=== PATIENT | female | born 1995 | race Caucasian/White ===

== ENCOUNTER 2016-03-29 17:19 | Inpatient (IN) | payer MEDICAID, OTHER ==
[~2016-03-29] VITALS: Ht 152.4 cm; Wt 104.2 kg
[2016-03-29 19:54] LABS: MEAN CORPUSCULAR HEMOGLOBIN 30.9 pg (27.0-33.0); MEAN CORPUSCULAR HGB CONC 34.3 g/dl (32.0-36.5); MEAN CORPUSCULAR VOLUME 90.1 fl (80.0-96.0); RED CELL DISTRIBUTION WIDTH 12.1 % (11.5-14.5); WHITE BLOOD COUNT 7.8 K/mm3 (4.0-10.0)
[2016-03-29 19:56] LABS: CONTROL LINE HCG INT CTR LINE PRESENT
[2016-03-29 19:59] LABS: AMPHETAMINES LEVEL URINE NEGATIVE (NEGATIVE); BENZODIAZEPINES URINE NEGATIVE (NEGATIVE); COCAINE METABOLITE URINE NEGATIVE (NEGATIVE); CONTROL LINE INT CTR LINE PRESENT; METHADONE URINE NEGATIVE (NEGATIVE); OPIATES URINE NEGATIVE (NEGATIVE); TRICYCLIC ANTIDEPRESS URINE NEGATIVE (NEGATIVE)
[2016-03-29 20:19] LABS: ALBUMIN/GLOBULIN RATIO 1.14 (1.00-1.93); ALKALINE PHOSPHATASE 90 U/L (45-117); ALT/SGPT 23 U/L (12-78); ANION GAP 11 MEQ/L (8-16); AST/SGOT 13 U/L (15-37); BILIRUBIN,DIRECT < 0.1 MG/DL (0.0-0.2); BILIRUBIN,TOTAL 0.3 MG/DL (0.2-1.0); BLOOD UREA NITROGEN 13 MG/DL (7-18); CARBON DIOXIDE LEVEL 20 MEQ/L (21-32); CHLORIDE LEVEL 110 MEQ/L (98-107); CREATININE FOR GFR 0.95 MG/DL (0.55-1.02); GLUCOSE, FASTING 120 MG/DL (70-105); POTASSIUM SERUM 4.1 MEQ/L (3.5-5.1); SODIUM LEVEL 141 MEQ/L (136-145); TOTAL PROTEIN 7.5 GM/DL (6.4-8.2)
[2016-03-29] MEDS ORDERED: SYNT75TA PO (20:50)
[2016-03-29] MEDS ORDERED: LAMI1TAB7 PO (20:50)
[2016-03-29] MEDS ORDERED: METF500T4 PO (20:50)
[2016-03-29] MEDS ORDERED: VITMTA PO (20:50)
[2016-03-29] MEDS ORDERED: CLON-412 PO (20:50)
[2016-03-29] MEDS ORDERED: ZOLO25TA PO (20:50)
[2016-03-29] MEDS ORDERED: LITH45TASA PO (20:50)
[2016-03-29] MEDS ORDERED: JUNE1.5T PO (20:50)
[2016-03-29] MEDS ORDERED: LITH150C PO (20:50)
[2016-03-29] MEDS ORDERED: CLOZ25TA2 PO (20:50)
[2016-03-29] MEDS ORDERED: CLOZ100T PO ×2 (20:50)
[2016-03-29] MEDS ORDERED: metFORMIN XR 500MG TAB *GLUCOPHAGE XR PO SCH (21:00)
--- NOTE | 2016-03-29 22:36 | EDDOCDS ---
Nurse's Notes [facility] Name: Marisol Simmons Age: 20 yrs Sex: Female : 1995 Arrival Date: 03/29/2016 Time: 17:19 Bed 31 Private MD: Diagnosis: Adjustment disorder with depressed mood;Suicidal ideations;Hallucinations, unspecified Presentation: 03/29 18:01 Presenting complaint: Patient states: I was threatening to kill myself and hearing [facility] voices, denies plan. Mental Health Triage Level: Level 2: The patient displays active suicidal ideations. Adult Sepsis Screening: The patient does not have new or worsening altered mentation. Patient's respiratory rate is less than 22. Systolic blood pressure is greater than 100. Patient has a qSOFA score of 0- Negative Sepsis Screen. Suicide/Homicide risk assessment- The patient admits to and/or has been reported to be having suicidal ideations. Patient denies SI and HI but presents with another emotional, behavioral or other mental health complaint. Status: Patient is not a service consultant or dependent. Transition of care: patient was sent by TLS. 18:01 Acuity: FABIANA Level 3 [facility] 18:01 Method Of Arrival: Police Car [facility] Triage Assessment: 18:11 General: Appears in no apparent distress, comfortable, Behavior is appropriate for age, [facility] cooperative. Pain: Denies pain. HIV screening NA for this visit Offered previously. The patient is triaged at the bedside. See Assessment in Nurses Notes section of ED record. Neurological: Level of Consciousness is awake, alert, Oriented to person, place, time. Respiratory: Airway is patent Respiratory effort is even, unlabored, Respiratory pattern is regular, symmetrical. Derm: Skin is pink, warm & dry. Musculoskeletal: Range of motion intact in all extremities. MEDICAL DOCTOR NUCLEAR MEDICINE: 18:11 LMP 03/23/2016 [facility] Historical: - Allergies: No known drug Allergies; LactoseI Intolerance; - Home Meds: 1. clonidine HCl 0.1 mg oral tab 3 times per day 2. Clozaril 100 mg oral tab 2 tabs nightly 3. Clozaril 100 mg oral tab 1 tab daily 4. Clozaril oral 50mg tab oral 1 tab nightly 5. lithium carbonate 450 mg oral TbER 1 tab 2 times per day 6. Synthroid 75 mcg Oral tab 1 tab once daily 7. multivitamin Oral cap Unknown 8. Lamictal 100 mg oral tab twice a day 9. Clozaril 100 mg oral tab 1 tab daily at noon 10. Zoloft 25 mg Oral tab 1.5 tabs once daily 11. Glucophage XR 500 mg Oral Tb24 2 tabs nightly 12. .5/ (28) 1.5 mg-30 mcg (21)/75 mg (7) oral tab 1 tab once daily - PMHx: Hypothyroidism; Schizophrenia; - PSHx: none; - Social history: Smoking status: Patient states was never smoker of tobacco. No barriers to communication noted. - Family history: Not pertinent. - : The pt / caregiver states he / she is not on anticoagulants. Home medication list is obtained from the facility MAY. - Exposure Risk Screening:: None identified. Screenin:51 Screening information is obtained from the patient. Fall risk: No risks identified. [facility] Assistance ADL's: requires no assistance with activities of daily living. Abuse/DV Screen: The patient / caregiver reports he/she is: not in a situation that causes fear, pain or injury. Nutritional screening: No deficits noted. Advance Directives: There is no active DNR order. home support is adequate. Assessment: 18:51 General: see bedside triage assessment. Patient is cooperative with care, ambulates to [facility] bathroom without assist or difficulty, gait steady. 19:30 General: Appears in no apparent distress, comfortable, Behavior is appropriate for age, slm cooperative, pleasant. General: pt sitting on stretcher watching tv [facility] staff observing . Pain: Denies pain. Neurological: Level of Consciousness is awake, alert, obeys commands. Respiratory: Airway is patent Respiratory effort is even, unlabored. Derm: Skin is pink, warm & dry. 20:22 General: Appears in no apparent distress, comfortable, Behavior is appropriate for age, slm cooperative, pleasant. General: pt resting quietly on stretcher [facility] staff observing . Respiratory: Airway is patent Respiratory effort is even, unlabored. 21:02 General: Appears in no apparent distress, comfortable, Behavior is appropriate for age, slm cooperative, pleasant. General: pt resting on stretcher denies needs [facility] staff observing . Pain: Denies pain. Respiratory: Airway is patent Respiratory effort is even, unlabored. 21:52 General: Appears in no apparent distress, comfortable, Behavior is appropriate for age, slm cooperative, pleasant. General: pt resting on stretcher quietly security observing . Respiratory: Airway is patent Respiratory pattern is regular. 22:27 General: Appears in no apparent distress, comfortable, Behavior is appropriate for age, slm cooperative. General: pt resting quietly on stretcher awaiting admission [facility] staff observing . Pain: Denies pain. Neurological: Level of Consciousness is awake, alert, obeys commands. Respiratory: Airway is patent Respiratory effort is even, unlabored. Derm: Skin is pink, warm & dry. Mental Health Eval: 19:23 Status: The patient is not a service consultant or dependent. [facility] Behavioral Health: The patient is not an established patient of [facility] Behavioral Health. Referral Information: Evaluation referral is generated by a police agency: [employer] on .. The patient was referred for evaluation because Pt expressing SI while at [facility] today, has hx of Schizophrenia, prior attempts at self harm and multiple psych admissions in past.. Subjective: The patients chief complaint is Pt reports feeling suicidal "today", denies any specific stressors, is guarded, gives short, rosetta answers, reports AH with commands recently, "[place]", telling pt to "cut" herself. Pt vague HI as well though denies any specific target/plan. Pt denies sleep/appetite/energy/concentration issues, denies any substance abuse issues, has been residing at [facility] since last Summer, states "its OK there". Pt with several prior psych admissions to [facility] in past, most recently transferred to [facility] from [facility] ED 12/20 for similar presentation/complaints. Pt continues to voice SI without plan, cannot CFS, remains fairly guarded.. Delusions are denied. Patient's mood is dysthymic, Command hallucinations are reported by the patient. Mental Health history: depression, psychosis, self -mutilation, suicide ideation ideation Mental Health Admissions: Several to [facility]. in past, also [facility] 12/20. Current Outpatient Mental Health Services: Psychiatrist / Agency: DEBBIE Mcleod. Therapist / Agency: DEBBIE Ruiz?. Current living environment is The patient currently lives in a [facility] residence. The patient is single. Patient presents to Emergency Department with the following symptoms within the past 2 weeks: depressed mood, auditory hallucinations stated by patient suicidal ideation with no plan. Substance abuse: Pt denies. Mental status exam: Patients appearance is obese, Patient's behavior is minimally responsive Speech is normal. Affect is flat. Mood is dysthymic Command hallucinations are reported by the patient. Appetite is normal. Memory is fair. Energy level is normal. Content of thought is depressive. depressive Thought process is intact. Cognitive level is oriented to person, place, time and situation Patient's insight is fair. Judgement is fair. Rapport with interviewer is guarded. Suicidal Ideation is present with no specific plan. Homicidal ideation is present without a specific plan. 20:19 Disposition: Medically cleared for disposition by Linnea De Santiago BUTTERMAKER Psychiatric Consult cl is performed by phone with Dr Justine Sears. [facility] Admission Criteria: The patient is experiencing suicidal ideation. The patient displays symptoms of severe psychiatric disorder resulting in disordered behavior and significant interference with his / her ability to maintain self care. Hallucinations. The patient requires continuous observation and/or control to protect self, others or property. The patient's care requires a multi-modal treatment plan under close supervision and coordination due to the complexity and severity of the patient's symptoms. Legal Status: Patient's legal status will be Emergency admission: 39. [place] Safe [place]: [place] Safe Act is applicable to this patient. The patient poses a risk to self or other and the Nursing Evaluation Specialist has been notified. He/She will enter the patient's data. DSM-V Differential Diagnosis: Schizophrenia (F20.9). DSM-V Differential Diagnosis: Unspecified Psychotic Disorder (F29). 20:53 Insurance Pre-Certification: [facility]...[phone]....per care asst, only cl substance abuse covered by [facility], benefits are [facility] Medicaid carve-out..... Family Notification: Family notified of admission to [facility], Notification was given to [facility] staff aware of admission.... Awaiting: transfer to [facility]. Vital Signs: 17:49 BP 156 / 81; Pulse 107; Resp 16; Temp 98.5; Pulse Ox 99% ; [facility] 22:30 BP 169 / 96; Pulse 105; Resp 18; Temp 98.2; Pulse Ox 99% on R/A; Pain 0/10; slm Vitals: 17:49 Log In time N/A- police car arrival. [facility] ED Course: 17:19 Patient visited by Cynthia Guan. zo 17:19 Patient moved to Waiting zo 17:20 Patient moved to 31 zo 17:34 Patient name changed from Marisol\\S\\Crystal\\S\\Troy\\S\\ to Marisol\\S\\R\\S\\Troy. EDMS 17:52 Patient visited by Jocelyne Mejía PSA. ml4 18:02 Triage Initiated [facility] 18:09 Property removed, secured in belongings bag- Placed in locker #3. pjf 18:44 Linnea De Santiago FNP is PHCP. le 18:45 Patient visited by Linnea De Santiago FNP. le 18:45 Patient visited by Linnea De Santiago FNP. le 18:51 The patient / caregiver is instructed regarding the plan of care and ED course. Patient [facility] has correct armband on for positive identification. Placed in gown. Placed in psych safe attire. Call light in reach. Security observing. 18:53 Patient visited by Kacey Cornelius RN. [facility] 19:30 Lori Zhou LPN is Primary Nurse. sl 19:31 Patient visited by Lori Zhou LPN. slm 19:31 No IV's were initiated during this patient's visit. No procedures done that require slm assistance. Labs drawn. (by ED staff). Sent per order to lab. Urine collected. Urine specimen sent to lab. 19:31 Acetaminophen Level Sent. slm 19:31 Basic Metabolic Profile Sent. slm 19:31 Complete Blood Count Sent. slm 19:31 Drug Eval Toxicology ED Only Sent. slm 19:31 Ethyl Alcohol (ethanol) Sent. slm 19:31 HCG,Serum Qualitative Sent. slm 19:32 Liver Profile Sent. slm 19:32 Salicylate Level Sent. slm 19:32 Thyroid Stimulating Hormone Sent. slm 20:20 [place] Payment Agreement was scanned into [facility] and attached to record. zo 20:22 Justine Sears is Hospitalizing Provider. le 20:46 MHE Legal paperwork was scanned into [facility] and attached to record. ml4 21:03 Patient visited by Lori Zhou LPN. slm 21:53 Patient visited by Lori Zhou LPN. slm 22:28 Patient visited by Loir Zhou LPN. slm Attachments: 20:46 MHE Legal paperwork ml4 Order Results: Lab Order: Acetaminophen Level; SPEC'M 03/29/16 19:26 Test: ACETAMINOPHEN LEVEL; Value: < 2.0; Range: 10.0-30.0; Abnormal: Below low normal; Units: UG/ML; Status: F Lab Order: Basic Metabolic Profile; SPEC'M 03/29/16 19:26 Test: GLUCOSE, FASTING; Value: 120; Range: 70-105; Abnormal: Above high normal; Units: MG/DL; Status: F Test: BLOOD UREA NITROGEN; Value: 13; Range: 7-18; Units: MG/DL; Status: F Test: CREATININE FOR GFR; Value: 0.95; Range: 0.55-1.02; Units: MG/DL; Status: F Test: SODIUM LEVEL; Value: 141; Range: 136-145; Units: MEQ/L; Status: F Test: POTASSIUM SERUM; Value: 4.1; Range: 3.5-5.1; Units: MEQ/L; Status: F Test: CHLORIDE LEVEL; Value: 110; Range: 98-107; Abnormal: Above high normal; Units: MEQ/L; Status: F Test: CARBON DIOXIDE LEVEL; Value: 20; Range: 21-32; Abnormal: Below low normal; Units: MEQ/L; Status: F Test: ANION GAP; Value: 11; Range: 8-16; Units: MEQ/L; Status: F Test: CALCIUM LEVEL; Value: 9.0; Range: 8.5-10.1; Units: MG/DL; Status: F Lab Order: Complete Blood Count; SPEC'M 03/29/16 19:26 Test: WHITE BLOOD COUNT; Value: 7.8; Range: 4.0-10.0; Units: K/mm3; Status: F Test: RED BLOOD COUNT; Value: 4.11; Range: 4.00-5.40; Units: M/mm3; Status: F Test: HEMOGLOBIN; Value: 12.7; Range: 12.0-16.0; Units: g/dl; Status: F Test: HEMATOCRIT; Value: 37.0; Range: 36.0-47.0; Units: %; Status: F Test: MEAN CORPUSCULAR VOLUME; Value: 90.1; Range: 80.0-96.0; Units: fl; Status: F Test: MEAN CORPUSCULAR HEMOGLOBIN; Value: 30.9; Range: 27.0-33.0; Units: pg; Status: F Test: MEAN CORPUSCULAR HGB CONC; Value: 34.3; Range: 32.0-36.5; Units: g/dl; Status: F Test: RED CELL DISTRIBUTION WIDTH; Value: 12.1; Range: 11.5-14.5; Units: %; Status: F Test: PLATELET COUNT, AUTOMATED; Value: 274; Range: 150-450; Units: k/mm3; Status: F Lab Order: Drug Eval Toxicology ED Only; SPEC'M 03/29/16 19:18 Test: AMPHETAMINES LEVEL URINE; Value: NEGATIVE; Range: NEGATIVE; Status: F Test: BARBITURATES URINE; Value: NEGATIVE; Range: NEGATIVE; Status: F Test: BENZODIAZEPINES URINE; Value: NEGATIVE; Range: NEGATIVE; Status: F Test: CANNABINOIDS URINE; Value: NEGATIVE; Range: NEGATIVE; Status: F Test: COCAINE METABOLITE URINE; Value: NEGATIVE; Range: NEGATIVE; Status: F Test: METHADONE URINE; Value: NEGATIVE; Range: NEGATIVE; Status: F Test: OPIATES URINE; Value: NEGATIVE; Range: NEGATIVE; Status: F Test: TRICYCLIC ANTIDEPRESS URINE; Value: NEGATIVE; Range: NEGATIVE; Status: F Test Note: ; ALL PRESUMPTIVE POSITIVE FINDINGS ARE UNCONFIRMED NORMAL VALUES THRESHOLD IN NG/ML AMPHETAMINES 1000 METHAMPHETAMINES 1000 BARBITURATES 300 BENZODIAZEPINES 300 CANNABINOIDS (THC) 50 COCAINE METABOLITE 300 METHADONE 300 OPIATES 300 PHENCYCLIDINE 25 TRICYCLIC ANTIDEPRESSANTS 1000 RESULTS ARE FOR MEDICAL PURPOSES ONLY. ALL URINE SPECIMENS WILL BE SAVED FOR 3 DAYS. IF CONFIRMATION OF A PRESUMPTIVE POSTIVE SCREEN RESULT IS DESIRED, CALL CHEMISTRY ([phone]) AND REQUEST URINE TO BE SENT TO REFERENCE LAB. FOR A LIST OF CLOSELY RELATED COMPOUNDS PLEASE CALL THE LAB. Lab Order: Ethyl Alcohol (ethanol); SPEC'M 03/29/16 19:26 Test: ETHYL ALCOHOL (ETHANOL); Value: 0.003; Range: 0.000-0.010; Units: %; Status: F Lab Order: HCG,Serum Qualitative; SPEC'M 03/29/16 19:26 Test: HCG, SERUM QUALITATIVE; Value: NEGATIVE; Range: NEGATIVE; Status: F Lab Order: Liver Profile; SPEC'M 03/29/16 19: Test: AST/SGOT; Value: 13; Range: 15-37; Abnormal: Below low normal; Units: U/L; Status: F Test: ALT/SGPT; Value: 23; Range: 12-78; Units: U/L; Status: F Test: ALKALINE PHOSPHATASE; Value: 90; Range: 45-117; Units: U/L; Status: F Test: BILIRUBIN,TOTAL; Value: 0.3; Range: 0.2-1.0; Units: MG/DL; Status: F Test: BILIRUBIN,DIRECT; Value: < 0.1; Range: 0.0-0.2; Units: MG/DL; Status: F Test: TOTAL PROTEIN; Value: 7.5; Range: 6.4-8.2; Units: GM/DL; Status: F Test: ALBUMIN; Value: 4.0; Range: 3.2-5.2; Units: GM/DL; Status: F Test: ALBUMIN/GLOBULIN RATIO; Value: 1.14; Range: 1.00-1.93; Status: F Lab Order: Salicylate Level; SPEC'M 03/29/16 19: Test: SALICYLATE LEVEL; Value: < 1.7; Range: 5.0-30.0; Abnormal: Below low normal; Units: MG/DL; Status: F Lab Order: Thyroid Stimulating Hormone; SPEC'03/29/16 19: Test: THYROID STIMULATING HORMONE; Value: 1.070; Range: 0.463-3.98; Units: uIU/ML; Status: F Outcome: 20:22 Decision to Hospitalize by Provider. le 21:03 No special radiology studies were completed. [facility] 22:30 Discharge Assessment: Patient awake, alert and oriented x 3. No cognitive and/or slm functional deficits noted. Patient verbalized understanding of disposition instructions. patient administered narcotics - no. The following High Risk Discharge criteria are identified: None. Admitted to Psych accompanied by tech, via wheelchair, with chart. Condition: stable. 22:34 Patient left the ED. [facility] Signatures: Dispatcher [employer] EDMS Sandeep Alvarado, PSA PSA cl Gian Reese, Jocelyne Rhodes, PSA PSA ml4 Cynthia Guan Lisa, BUTTERMAKER Kacey Delarosa,MARCOS RN cj Lori Zhou,FRY COOK FRY COOK slm MTDD
--- NOTE | 2016-03-29 22:36 | EDDOCDS ---
Physician Documentation [facility] Name: Marisol Simmons Age: 20 yrs Sex: Female : 1995 Arrival Date: 03/29/2016 Time: 17:19 Bed 31 Private MD: Disposition: 03/29/16 20:22 Hospitalization ordered by Justine Sears for Inpatient Admission. Preliminary diagnosis are Adjustment disorder with depressed mood, Suicidal ideations, Hallucinations, unspecified. - Bed requested for Admit. - Status is Inpatient Admission. slm - Condition is Stable. - Problem is an acute exacerbation. - Symptoms are unchanged. Historical: - Allergies: No known drug Allergies; LactoseI Intolerance; - Home Meds: 1. clonidine HCl 0.1 mg oral tab 3 times per day 2. Clozaril 100 mg oral tab 2 tabs nightly 3. Clozaril 100 mg oral tab 1 tab daily 4. Clozaril oral 50mg tab oral 1 tab nightly 5. lithium carbonate 450 mg oral TbER 1 tab 2 times per day 6. Synthroid 75 mcg Oral tab 1 tab once daily 7. multivitamin Oral cap Unknown 8. Lamictal 100 mg oral tab twice a day 9. Clozaril 100 mg oral tab 1 tab daily at noon 10. Zoloft 25 mg Oral tab 1.5 tabs once daily 11. Glucophage XR 500 mg Oral Tb24 2 tabs nightly 12. 1.5/30 (28) 1.5 mg-30 mcg (21)/75 mg (7) oral tab 1 tab once daily - PMHx: Hypothyroidism; Schizophrenia; - PSHx: none; - Social history: Smoking status: Patient states was never smoker of tobacco. No barriers to communication noted. - Family history: Not pertinent. - : The pt / caregiver states he / she is not on anticoagulants. Home medication list is obtained from the facility MAY. - Exposure Risk Screening:: None identified. EROSION CONTROL SPECIALIST: 03/29 18:11 LMP 03/23/2016 [facility] Vital Signs: 17:49 BP 156 / 81; Pulse 107; Resp 16; Temp 98.5; Pulse Ox 99% ; [facility] 22:30 BP 169 / 96; Pulse 105; Resp 18; Temp 98.2; Pulse Ox 99% on R/A; Pain 0/10; slm MDM: 17:21 Consult PFS/PSA/Laundry Routeman ordered. ml 17:21 Consult PFS/PSA/Laundry Routeman: Patient's case requires discussion with on-call ml Psychiatrist ordered. 17:21 PSA/PFS to call Nursing Program Services Assistant, to enter patient data on [place] Safe Act if patient ml involuntarily admitted or transferred for SI or HI ordered. 17:21 Confirm accurate psychiatric medication list and times of last dosage ordered. ml 17:21 Detain Pt Until Medically/PFS Cleared ordered. ml 17:22 Acetaminophen Level Ordered. EDMS 17:22 Basic Metabolic Profile Ordered. EDMS 17:22 Complete Blood Count Ordered. EDMS 17:22 Drug Eval Toxicology ED Only Ordered. EDMS 17:22 Ethyl Alcohol (ethanol) Ordered. EDMS 17:22 HCG,Serum Qualitative Ordered. EDMS 17:22 Liver Profile Ordered. EDMS 17:22 Salicylate Level Ordered. EDMS 17:22 Thyroid Stimulating Hormone Ordered. EDMS 17:55 REGULAR DIET PLASTIC BHATT+DIET ordered. EDMS 19:58 Financial registration complete. zo 19:59 Consult PFS/PSA/Laundry Routeman complete. cl 19:59 Consult PFS/PSA/Laundry Routeman: Patient's case requires discussion with on-call cl Psychiatrist complete. 19:59 PSA/PFS to call Nursing Program Services Assistant, to enter patient data on [place] Safe Act if patient cl involuntarily admitted or transferred for SI or HI complete. 20:14 Complete Blood Count Reviewed. le 20:14 Drug Eval Toxicology ED Only Reviewed. le 20:14 HCG,Serum Qualitative Reviewed. le 20:20 [facility] Payment Agreement was scanned into [employer] and attached to record. zo 20:23 BED REQUEST+ADM ordered. EDMS 20:43 Ad[facility]: ordered. EDMS 20:46 [facility] Legal paperwork was scanned into [employer] and attached to record. ml4 Signatures: Dispatcher [employer] EDDE Kit Bland MD MD ml Lavin, Chris, PSA PSA cl Jocelyne Mejía, PSA PSA ml4 Cynthia Guan Lisa, WOOD CRAFTSMAN WOOD CRAFTSMAN Kacey Powell,MARCOS RN marilee Lori Zhou LPN LPN slm The chart was reviewed and I authenticate all verbal orders and agree with the evaluation and treatment provided.Attachments: 20:20 [facility] Payment Agreement zo MTDD
[2016-03-29 22:45] VITALS: BP 140/90
[2016-03-30] MEDS ORDERED: MAALOX 30 ML SUSP *UDC PO PRN (00:45)
[2016-03-30] MEDS ORDERED: traZODone 50 MG TAB PO PRN (00:45)
[2016-03-30] MEDS ORDERED: MOM 30ML SUSPENSION UDC PO PRN (00:45)
[2016-03-30 06:25] VITALS: BP 151/81
[2016-03-30] MEDS: LEVOTHYROXINE 0.075 MG TAB (75 MCG) PO SCH (06:39)
[2016-03-30] MEDS: cloNIDine 0.1 MG TAB PO SCH ×3 (08:16→20:28)
[2016-03-30] MEDS: cloZAPine 100 MG TAB (S0136) PO SCH ×3 (08:16→20:29)
[2016-03-30] MEDS: SERTRALINE HCL 25 MG TABLET PO SCH (08:16)
[2016-03-30] MEDS: LITHIUM CARBONATE 450 MG **CR** TAB PO SCH ×2 (08:17→20:28)
[2016-03-30] MEDS: lamoTRIgine 100MG TAB PO SCH ×2 (08:17→20:29)
--- NOTE | 2016-03-30 11:51 | HPEPDOC ---
Medical History and Physical Date of Admission Mar 29, 2016 at 22:40 History and Physical PCP: [facility] ATTENDING: Dr. Morris Marley HPI: 20yoF [facility], being medically examined today. No acute medical complaints today. Denies any fevers, chills, weakness, fatigue , CLEMENS, CP, SOB, cough, palpitations, abdominal pain, N/V/D or changes in bowel or bladder habits. PMHx: Hypothyroid Schizophrenia Obesity-BMI 44.9 IFG PSHX: [place] teeth extraction SOCHX: Resides in: [place] Marital Status: Single Kids: None Employment: Unemployed Tobacco use: Denies ETOH: Denies Illicit Drugs: Denies IV Drug Use: Denies Tattoos done unprofessionally: Denies FAMHX: Mother: Alive, well Father: Alive, well Siblings: 2 sisters Alive, well Children: None Unexpected deaths due to medical reasons: None. ROS: As noted in HPI, otherwise 11pt ROS of systems reviewed and remarkable only for LMP 03/23/16 PE: GEN: 20yoF, appears stated age. Well-nourished, well developed. No acute distress. Alert and oriented x 3. Pleasant, interactive. HEENT: Normocephalic, atraumatic. Pupils are equal, round, and reactive to light. Extraocular movements are intact. No nystagmus appreciated. Sclera are nonicteric. Conjunctiva without injection. Nose midline. Nasal turbinates without bogginess. EACs both patent BL. TMs both visualized and kwon with good cone of light, no bulging or erythema. No facial asymmetry. Moist mucous membranes. Dentition fair. Pharynx pink and moist, no cobblestoning. Neck supple , trachea midline. No lymphadenopathy or thyromegaly appreciated. CHEST: Regular rate and rhythm, +S1, +S2 LUNGS: Clear to auscultation bilaterally. No wheezes, rales, or rhonchi. Breathing appears symmetric and easy. Patient is speaking in full sentences. No accessory muscle use. ABD: Round, soft, non-tender, non-distended. +Bowel sounds throughout. No rebound or guarding. No costovertebral angle tenderness. EXT: Pulses 2+ bilaterally dorsalis pedis and radial. No lower extremity edema appreciated. SKIN: [place], dry, warm. Capillary refill <2sec. No rashes. There is a small burn sammie noted on the patient's right forearm which she states is accidental from an iron. NEURO: Alert and oriented x 3. Cranial nerves III-XII are intact. No focal deficits appreciated. EKG: pending. A&P: 20yoF [facility]ia 1. Psych. Plan per Psychiatry. Obtain baseline EKG to assure the safety of psychiatric medications as they can prolong the QT interval. 2. Hypothyroid. Continue Synthroid 75 g daily. TSH is within normal limits. 3. IFG. Patient remains on Glucophage XL 500 mg 2 tablets daily. Blood sugar with admission labs was noted to be 120 however this was not a fasting sample. Check hemoglobin A1c in a.m. 4. Follow up with PCP on discharge. [facility]. 5. OCP. 6. Obesity. BMI 44.9. Complicates care. 7. Staff Member present throughout exam, Paige CALVO. Vital Signs Vital Signs Label Value Date Time Patient Temperature 95.1 degrees F 03/30/16 0625 Temperature Source Tympanic 03/30/16 0625 Pulse 85 03/30/16 0625 Respiratory Rate 19 bpm 03/30/16 0625 Blood Pressure Assessment 151/81 (104) 03/30/16 0625 Laboratory Data Labs 24H Laboratory Tests 2 03/29/16 19:18: Urine Amphetamine Level NEGATIVE, Urine Benzodiazepines Screen NEGATIVE, Urine Cannabinoids NEGATIVE, Urine Cocaine Metabolite NEGATIVE, Urine Opiates Screen NEGATIVE, Urine Barbiturates, Qualitative NEGATIVE, Urine Methadone Screen NEGATIVE, Urine Tricyclic Antidepressants NEGATIVE 03/29/16 19:26: Acetaminophen Level < 2.0L, Aspartate Amino Transf (AST/SGOT) 13L, Alanine Aminotransferase (ALT/SGPT) 23, Alkaline Phosphatase 90, Total Bilirubin 0.3, Direct Bilirubin < 0.1, Albumin 4.0, Albumin/Globulin Ratio 1.14, Anion Gap 11, Calcium Level 9.0, Ethyl Alcohol Level 0.003, Human Chorionic Gonadotropin, Qual NEGATIVE, Salicylates Level < 1.7L, Thyroid Stimulating Hormone (TSH) 1.070 , Total Protein 7.5 03/30/16 07:12: [place] Level 0.51L CBC/BMP Laboratory Tests 03/29/16 19:26 Red Blood Count 4.11, Mean Corpuscular Volume 90.1, Mean Corpuscular Hemoglobin 30.9, Mean Corpuscular Hemoglobin Concent 34.3, Red Cell Distribution Width 12.1 Home Medications Scheduled ( 1.5-30 mg-Mcg) 1 Tab Tab 1 TAB PO QHS Clonidine Hydrochloride (Clonidine HCl) 0.1 Mg Tab 0.1 MG PO TID Clozapine (Clozaril) 100 Mg Tab 100 MG PO BID MORNING & NOON Clozapine (Clozaril) 100 Mg Tab 200 MG PO QHS 250MG TOTAL QHS Clozapine (Clozaril) 25 Mg Tab 50 MG PO QHS 250MG TOTAL QHS Lamotrigine (Lamictal) 100 Mg Tab 100 MG PO BID Levothyroxine Sodium (Synthroid) 75 Mcg Tab 75 MCG PO DAILY [place] Carbonate ([place] Carbonate ER) 450 Mg Tabcr 450 MG PO BID [place] Carbonate ([place] Carbonate) 150 Mg Cap 150 MG PO QHS Metformin Hydrochloride (Metformin HCl ER) 500 Mg Tab 1,000 MG PO QHS Multivitamins *[facility] STOCKED* (Thera M Plus *[facility] STOCKED*) 1 Tab Tab 1 TAB PO DAILY Sertraline Hcl (Zoloft) 25 Mg Tab 37.5 MG PO DAILY Allergies Coded Allergies: Lactose (Unverified Allergy, Unknown, 03/29/16) Chaya Sanon Mar 30, 2016 11:51
[2016-03-30 12:21] VITALS: BP 134/87
[2016-03-30] MEDS: ACETAMINOPHEN TAB 650MG DOSE (2X325MG) PO PRN (16:35)
[2016-03-30 18:00] VITALS: BP 138/77
[2016-03-30] MEDS: metFORMIN XR 500MG TAB *GLUCOPHAGE XR PO SCH (20:27)
[2016-03-30] MEDS: JUNEL FE PO SCH (20:28)
[2016-03-31] MEDS: LEVOTHYROXINE 0.075 MG TAB (75 MCG) PO SCH (06:10)
[2016-03-31 06:28] VITALS: BP 168/73
[2016-03-31] MEDS: cloZAPine 100 MG TAB (S0136) PO SCH ×3 (08:36→20:30)
[2016-03-31] MEDS: SERTRALINE HCL 25 MG TABLET PO SCH (08:36)
[2016-03-31] MEDS: LITHIUM CARBONATE 450 MG **CR** TAB PO SCH ×2 (08:37→20:31)
[2016-03-31] MEDS: cloNIDine 0.1 MG TAB PO SCH ×3 (08:37→20:30)
[2016-03-31] MEDS: lamoTRIgine 100MG TAB PO SCH ×2 (08:37→20:30)
[2016-03-31 08:38] VITALS: BP 133/73
--- NOTE | 2016-03-31 09:37 | HPEPDOC ---
[facility] History & Physical History and Physical DATE OF ADMISSION: Mar 29, 2016 at 22:40 CHIEF COMPLAINT: "Auditory hallucinations commanding patient to cut herself." HISTORY OF THE PRESENT ILLNESS: Patient is a 20-year-old female, with a past psychiatric history significant for schizophrenia presents to the [facility] emergency department brought by police after reporting more intense and distressing auditory hallucinations which tell the patient to kill herself by cutting her wrists. Patient reports this episode of worsening intensity commanding auditory hallucinations began Tuesday, approximately 4 days prior to this admission. She reports medication compliance she reports no issues with substance abuse. Patient reports sleep and appetite have been within normal limits. He reports no issues with staff or peers. Patient is a resident of [facility]. He lives in a ch[facility]. She reports there have been no new admissions at the chcf. She reports there have been no new stressors in her life that she can identify as a trigger for this current episode of worsening auditory hallucinations. Patient reports going home to visit family for Thanksgiving and [place]. She reports having no issues while visiting home. Patient reports no new medical issues legal issues she reports no interpersonal issues with friends family or peers at the chcf. He reports she gets along with all of the staff at her [facility] chcf. Patient reports decompensation occurs typically every 3 months or so. Reports episodes usually lasts about 2-4 days. She reports no medication changes are usually done but the intensity of these hallucinations usually recede in 2-4 days. [place] level on admission noted to be 0.51. detention staff reports patient has been displaying more depressive symptoms over the last 4 days. Patient reports she's been sleeping within normal limits. She denies nightmares. Patient displays no bizarre behavior has made no bizarre statements and has expressed no delusional thought during this interview. Patient was reported to have homicidal ideations with no particular target or particular plan prior to admission. Patient currently denies auditory hallucinations. She currently denies suicidal ideations and homicidal ideations. PAST PSYCHIATRIC HISTORY: Prior Psychiatric Disorder: Schizophrenia. Out Patient Treatment: [facility]. Suicidal/Self injurious: no hx of SIB. Psychotropic Medication History: Clozaril, [place], Zoloft, Lamictal Suicide Hx: Patient denies MEDICAL HISTORY: Hypothyroid Schizophrenia Obesity-BMI 44.9 IFG ALLERGIES: Please see below. SOCHX: Resides in: [place] Marital Status: Single Kids: None Employment: Unemployed Tobacco use: Denies ETOH: Denies Illicit Drugs: Denies IV Drug Use: Denies Tattoos done unprofessionally: Denies FAMHX: Mother: Alive, well Father: Alive, well Siblings: 2 sisters Alive, well Children: None Unexpected deaths due to medical reasons: None. SUBSTANCE ABUSE HISTORY: patient denies LEGAL HISTORY: Unremarkable. LABORATORY DATA: Please see below. MENTAL STATUS EXAMINATION: Patient is a 20-year-old obese female who appears stated age, calm cooperative and in NAD. Speech: Is normal in rate, volume, and articulation, and is coherent and spontaneous. Language skills are intact. Thought processes:linear/Goal directed. Thought content: appropriate Abstract reasoning, and computation: intact. Description of associations:intact Description of abnormal or psychotic thoughts: no perceptual issues noted. Judgment: fair. Insight: fair Orientation to time, place and person intact. Recent and remote memory: . Immediate short-term and long-term memory is: intact. Attention span and concentration: good Language: Normal. Fund of knowledge: adequate Mood: euthymic. Affect:broad PROBLEM LIST: 1. chronic decompensated schizophrenia. ASSESSMENT: 1. Schizophrenia. PLAN: [ 1.~ ~ Patient was admitted on a 9.30 legal status, 2.~ ~ Complete history was obtained. 3.~ ~ With patients permission, family will be contacted and database will be expanded. 4.~ ~ Patients psychotropic medication regimen will be continued as currently written and re-evaluated accordingly. 5.~ ~ Patient will be provided with protected environment. 6.~ ~ Patient will be treated with individual, group, and milieu therapies. 7.~ ~ Patient will receive supportive psych-education. 8.~ ~ Discharge planning will commence immediately. 9.~ ~ Length of patients stay will be between 3-5 days 10.~ Outpatient follow-up treatment will be strongly recommended. ESTIMATED LENGTH OF STAY: 3-5 days. TIME SPENT COUNSELING AND COORDINATING INITIAL CARE: 60 minutes. Laboratory Data 24H Labs Laboratory Tests 2 03/31/16 06:20: Medications Scheduled ( 1.5-30 mg-Mcg) 1 Tab Tab 1 TAB PO QHS (Reported) Clonidine Hydrochloride (Clonidine HCl) 0.1 Mg Tab 0.1 MG PO TID (Reported) Clozapine (Clozaril) 100 Mg Tab 100 MG PO BID (Reported) MORNING & NOON Clozapine (Clozaril) 100 Mg Tab 200 MG PO QHS (Reported) 250MG TOTAL QHS Clozapine (Clozaril) 25 Mg Tab 50 MG PO QHS (Reported) 250MG TOTAL QHS Lamotrigine (Lamictal) 100 Mg Tab 100 MG PO BID (Reported) Levothyroxine Sodium (Synthroid) 75 Mcg Tab 75 MCG PO DAILY (Reported) [place] Carbonate ([place] Carbonate ER) 450 Mg Tabcr 450 MG PO BID (Reported) [place] Carbonate ([place] Carbonate) 150 Mg Cap 150 MG PO QHS (Reported) Metformin Hydrochloride (Metformin HCl ER) 500 Mg Tab 1,000 MG PO QHS (Reported ) Multivitamins *[facility] STOCKED* (Thera M Plus *[facility] STOCKED*) 1 Tab Tab 1 TAB PO DAILY (Reported) Sertraline Hcl (Zoloft) 25 Mg Tab 37.5 MG PO DAILY (Reported) Allergies Coded Allergies: Lactose (Unverified Allergy, Unknown, 03/29/16) PATTY CASE MD Mar 31, 2016 09:37 PATTY CASE MD Mar 31, 2016 09:37
--- NOTE | 2016-03-31 18:12 | ECGEPIP ---
Stationary ECG Study [facility] Test Date: 2016-03-30 Pat Name: TORRES SANTA Department: Room: [place] [address] Gender: F Egg Candler: CAREY : 1995 Requested By: Chaya Sanon Order Number: [id number] Reading MD: Royal Zamarripa Measurements Intervals [place] Rate: 91 P: 42 HI: 148 QRS: 7 QRSD: 115 T: 28 QT: 371 QTc: 458 Interpretive Statements SINUS RHYTHM MILD INTRAVENTRICULAR CONDUCTION DELAY NO PRIOR TRACING IN THE SYSTEM Electronically Signed On 03-31-2016 18:12:02 EST by Royal Zamarripa
[2016-03-31 18:22] VITALS: BP 140/82
[2016-03-31] MEDS: JUNEL FE PO SCH (20:29)
[2016-03-31] MEDS: metFORMIN XR 500MG TAB *GLUCOPHAGE XR PO SCH (20:31)
[2016-03-31] MEDS: ACETAMINOPHEN TAB 650MG DOSE (2X325MG) PO PRN (20:34)
--- NOTE | 2016-03-31 23:36 | EDDOCDS ---
Nurse's Notes [facility] Name: Marisol Simmons Age: 20 yrs Sex: Female : 1995 Arrival Date: 03/29/2016 Time: 17:19 Bed 31 Private MD: Diagnosis: Adjustment disorder with depressed mood;Suicidal ideations;Hallucinations, unspecified Presentation: 03/29 18:01 Presenting complaint: Patient states: I was threatening to kill myself and hearing [facility] voices, denies plan. Mental Health Triage Level: Level 2: The patient displays active suicidal ideations. Adult Sepsis Screening: The patient does not have new or worsening altered mentation. Patient's respiratory rate is less than 22. Systolic blood pressure is greater than 100. Patient has a qSOFA score of 0- Negative Sepsis Screen. Suicide/Homicide risk assessment- The patient admits to and/or has been reported to be having suicidal ideations. Patient denies SI and HI but presents with another emotional, behavioral or other mental health complaint. Status: Patient is not a service porter or dependent. Transition of care: patient was sent by TLS. 18:01 Acuity: FABIANA Level 3 [facility] 18:01 Method Of Arrival: Police Car [facility] Triage Assessment: 18:11 General: Appears in no apparent distress, comfortable, Behavior is appropriate for age, [facility] cooperative. Pain: Denies pain. HIV screening NA for this visit Offered previously. The patient is triaged at the bedside. See Assessment in Nurses Notes section of ED record. Neurological: Level of Consciousness is awake, alert, Oriented to person, place, time. Respiratory: Airway is patent Respiratory effort is even, unlabored, Respiratory pattern is regular, symmetrical. Derm: Skin is pink, warm & dry. Musculoskeletal: Range of motion intact in all extremities. 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 clonidine HCl 0.1 mg oral tab 3 times per day 2. Clozaril 100 mg oral tab 2 tabs nightly 3. Clozaril 100 mg oral tab 1 tab daily 4. Clozaril oral 50mg tab oral 1 tab nightly 5. lithium carbonate 450 mg oral TbER 1 tab 2 times per day 6. Synthroid 75 mcg Oral tab 1 tab once daily 7. multivitamin Oral cap Unknown 8. Lamictal 100 mg oral tab twice a day 9. Clozaril 100 mg oral tab 1 tab daily at noon 10. Zoloft 25 mg Oral tab 1.5 tabs once daily 11. Glucophage XR 500 mg Oral Tb24 2 tabs nightly 12. .5/ (28) 1.5 mg-30 mcg (21)/75 mg (7) oral tab 1 tab once daily - PMHx: Hypothyroidism; Schizophrenia; - PSHx: none; - Social history: Smoking status: Patient states was never smoker of tobacco. No barriers to communication noted. - Family history: Not pertinent. - : The pt / caregiver states he / she is not on anticoagulants. Home medication list is obtained from the facility MAY. - Exposure Risk Screening:: None identified. Screenin:51 Screening information is obtained from the patient. Fall risk: No risks identified. [facility] Assistance ADL's: requires no assistance with activities of daily living. Abuse/DV Screen: The patient / caregiver reports he/she is: not in a situation that causes fear, pain or injury. Nutritional screening: No deficits noted. Advance Directives: There is no active DNR order. home support is adequate. Assessment: 18:51 General: see bedside triage assessment. Patient is cooperative with care, ambulates to [facility] bathroom without assist or difficulty, gait steady. 19:30 General: Appears in no apparent distress, comfortable, Behavior is appropriate for age, slm cooperative, pleasant. General: pt sitting on stretcher watching tv [facility] staff observing . Pain: Denies pain. Neurological: Level of Consciousness is awake, alert, obeys commands. Respiratory: Airway is patent Respiratory effort is even, unlabored. Derm: Skin is pink, warm & dry. 20:22 General: Appears in no apparent distress, comfortable, Behavior is appropriate for age, slm cooperative, pleasant. General: pt resting quietly on stretcher [facility] staff observing . Respiratory: Airway is patent Respiratory effort is even, unlabored. 21:02 General: Appears in no apparent distress, comfortable, Behavior is appropriate for age, slm cooperative, pleasant. General: pt resting on stretcher denies needs [facility] staff observing . Pain: Denies pain. Respiratory: Airway is patent Respiratory effort is even, unlabored. 21:52 General: Appears in no apparent distress, comfortable, Behavior is appropriate for age, slm cooperative, pleasant. General: pt resting on stretcher quietly security observing . Respiratory: Airway is patent Respiratory pattern is regular. 22:27 General: Appears in no apparent distress, comfortable, Behavior is appropriate for age, slm cooperative. General: pt resting quietly on stretcher awaiting admission [facility] staff observing . Pain: Denies pain. Neurological: Level of Consciousness is awake, alert, obeys commands. Respiratory: Airway is patent Respiratory effort is even, unlabored. Derm: Skin is pink, warm & dry. Mental Health Eval: 19:23 Status: The patient is not a service porter or dependent. [facility] Behavioral Health: The patient is not an established patient of [facility] Behavioral Health. Referral Information: Evaluation referral is generated by a police agency: [employer] on .. The patient was referred for evaluation because Pt expressing SI while at [facility] today, has hx of Schizophrenia, prior attempts at self harm and multiple psych admissions in past.. Subjective: The patients chief complaint is Pt reports feeling suicidal "today", denies any specific stressors, is guarded, gives short, rosetta answers, reports AH with commands recently, "[place]", telling pt to "cut" herself. Pt vague HI as well though denies any specific target/plan. Pt denies sleep/appetite/energy/concentration issues, denies any substance abuse issues, has been residing at [facility] since last Summer, states "its OK there". Pt with several prior psych admissions to [facility] in past, most recently transferred to [facility] from [facility] ED 12/20 for similar presentation/complaints. Pt continues to voice SI without plan, cannot CFS, remains fairly guarded.. Delusions are denied. Patient's mood is dysthymic, Command hallucinations are reported by the patient. Mental Health history: depression, psychosis, self -mutilation, suicide ideation ideation Mental Health Admissions: Several to [facility]. in past, also [facility] 12/20. Current Outpatient Mental Health Services: Psychiatrist / Agency: DEBBIE Mcleod. Therapist / Agency: DEBBIE Ruiz?. Current living environment is The patient currently lives in a [facility] residence. The patient is single. Patient presents to Emergency Department with the following symptoms within the past 2 weeks: depressed mood, auditory hallucinations stated by patient suicidal ideation with no plan. Substance abuse: Pt denies. Mental status exam: Patients appearance is obese, Patient's behavior is minimally responsive Speech is normal. Affect is flat. Mood is dysthymic Command hallucinations are reported by the patient. Appetite is normal. Memory is fair. Energy level is normal. Content of thought is depressive. depressive Thought process is intact. Cognitive level is oriented to person, place, time and situation Patient's insight is fair. Judgement is fair. Rapport with interviewer is guarded. Suicidal Ideation is present with no specific plan. Homicidal ideation is present without a specific plan. 20:19 Disposition: Medically cleared for disposition by Linnea De Santiago PRODUCTION DRILLING MACHINE OPERATOR Psychiatric Consult cl is performed by phone with Dr Justine Sears. [facility] Admission Criteria: The patient is experiencing suicidal ideation. The patient displays symptoms of severe psychiatric disorder resulting in disordered behavior and significant interference with his / her ability to maintain self care. Hallucinations. The patient requires continuous observation and/or control to protect self, others or property. The patient's care requires a multi-modal treatment plan under close supervision and coordination due to the complexity and severity of the patient's symptoms. Legal Status: Patient's legal status will be Emergency admission: 39. [place] Safe Act: [place] Safe Act is applicable to this patient. The patient poses a risk to self or other and the Nursing Director Of Physical Therapy has been notified. He/She will enter the patient's data. DSM-V Differential Diagnosis: Schizophrenia (F20.9). DSM-V Differential Diagnosis: Unspecified Psychotic Disorder (F29). 20:53 Insurance Pre-Certification: [facility]...[phone]....per care aid, only cl substance abuse covered by [facility], benefits are [facility] Medicaid carve-out..... Family Notification: Family notified of admission to [facility], Notification was given to [facility] staff aware of admission.... Awaiting: transfer to [facility]. Vital Signs: 17:49 BP 156 / 81; Pulse 107; Resp 16; Temp 98.5; Pulse Ox 99% ; [facility] 22:30 BP 169 / 96; Pulse 105; Resp 18; Temp 98.2; Pulse Ox 99% on R/A; Pain 0/10; slm Vitals: 17:49 Log In time N/A- police car arrival. [facility] ED Course: 17:19 Patient visited by Cynthia Guan. zo 17:19 Patient moved to Waiting zo 17:20 Patient moved to 31 zo 17:34 Patient name changed from Marisol\\S\\Crystal\\S\\Troy\\S\\ to Marisol\\S\\R\\S\\Troy. EDMS 17:52 Patient visited by Jocelyne Mejía PSA. ml4 18:02 Triage Initiated [facility] 18:09 Property removed, secured in belongings bag- Placed in locker #3. pjf 18:44 Linnea De Santiago FNP is PHCP. le 18:45 Patient visited by Linnea De Santiago FNP. le 18:45 Patient visited by Linnea De Santiago FNP. le 18:51 The patient / caregiver is instructed regarding the plan of care and ED course. Patient [facility] has correct armband on for positive identification. Placed in gown. Placed in psych safe attire. Call light in reach. Security observing. 18:53 Patient visited by Kacey Cornelius RN. [facility] 19:30 Lori Zhou LPN is Primary Nurse. sl 19:31 Patient visited by Lori Zhou LPN. slm 19:31 No IV's were initiated during this patient's visit. No procedures done that require slm assistance. Labs drawn. (by ED staff). Sent per order to lab. Urine collected. Urine specimen sent to lab. 19:31 Acetaminophen Level Sent. slm 19:31 Basic Metabolic Profile Sent. slm 19:31 Complete Blood Count Sent. slm 19:31 Drug Eval Toxicology ED Only Sent. slm 19:31 Ethyl Alcohol (ethanol) Sent. slm 19:31 HCG,Serum Qualitative Sent. slm 19:32 Liver Profile Sent. slm 19:32 Salicylate Level Sent. slm 19:32 Thyroid Stimulating Hormone Sent. slm 20:20 [place] Payment Agreement was scanned into My[employer] and attached to record. zo 20:22 Justine Sears is Hospitalizing Provider. le 20:46 [facility] Legal paperwork was scanned into My[employer] and attached to record. ml4 21:03 Patient visited by Lori Zhou LPN. slm 21:53 Patient visited by Lori Zhou LPN. slm 22:28 Patient visited by Lori Zhou LPN. slm 03/30 09:57 T-Sheet-- Draft Copy was scanned into MyUnfold and attached to record. Attachments: 20:46 E Legal paperwork ml4 Order Results: Lab Order: Acetaminophen Level; SPEC'M 03/29/16 19:26 Test: ACETAMINOPHEN LEVEL; Value: < 2.0; Range: 10.0-30.0; Abnormal: Below low normal; Units: UG/ML; Status: F Lab Order: Basic Metabolic Profile; SPEC'M 03/29/16 19:26 Test: GLUCOSE, FASTING; Value: 120; Range: 70-105; Abnormal: Above high normal; Units: MG/DL; Status: F Test: BLOOD UREA NITROGEN; Value: 13; Range: 7-18; Units: MG/DL; Status: F Test: CREATININE FOR GFR; Value: 0.95; Range: 0.55-1.02; Units: MG/DL; Status: F Test: SODIUM LEVEL; Value: 141; Range: 136-145; Units: MEQ/L; Status: F Test: POTASSIUM SERUM; Value: 4.1; Range: 3.5-5.1; Units: MEQ/L; Status: F Test: CHLORIDE LEVEL; Value: 110; Range: 98-107; Abnormal: Above high normal; Units: MEQ/L; Status: F Test: CARBON DIOXIDE LEVEL; Value: 20; Range: 21-32; Abnormal: Below low normal; Units: MEQ/L; Status: F Test: ANION GAP; Value: 11; Range: 8-16; Units: MEQ/L; Status: F Test: CALCIUM LEVEL; Value: 9.0; Range: 8.5-10.1; Units: MG/DL; Status: F Lab Order: Complete Blood Count; SPEC' 03/29/16 19:26 Test: WHITE BLOOD COUNT; Value: 7.8; Range: 4.0-10.0; Units: K/mm3; Status: F Test: RED BLOOD COUNT; Value: 4.11; Range: 4.00-5.40; Units: M/mm3; Status: F Test: HEMOGLOBIN; Value: 12.7; Range: 12.0-16.0; Units: g/dl; Status: F Test: HEMATOCRIT; Value: 37.0; Range: 36.0-47.0; Units: %; Status: F Test: MEAN CORPUSCULAR VOLUME; Value: 90.1; Range: 80.0-96.0; Units: fl; Status: F Test: MEAN CORPUSCULAR HEMOGLOBIN; Value: 30.9; Range: 27.0-33.0; Units: pg; Status: F Test: MEAN CORPUSCULAR HGB CONC; Value: 34.3; Range: 32.0-36.5; Units: g/dl; Status: F Test: RED CELL DISTRIBUTION WIDTH; Value: 12.1; Range: 11.5-14.5; Units: %; Status: F Test: PLATELET COUNT, AUTOMATED; Value: 274; Range: 150-450; Units: k/mm3; Status: F Lab Order: Drug Eval Toxicology ED Only; SPEC'M 03/29/16 19:18 Test: AMPHETAMINES LEVEL URINE; Value: NEGATIVE; Range: NEGATIVE; Status: F Test: BARBITURATES URINE; Value: NEGATIVE; Range: NEGATIVE; Status: F Test: BENZODIAZEPINES URINE; Value: NEGATIVE; Range: NEGATIVE; Status: F Test: CANNABINOIDS URINE; Value: NEGATIVE; Range: NEGATIVE; Status: F Test: COCAINE METABOLITE URINE; Value: NEGATIVE; Range: NEGATIVE; Status: F Test: METHADONE URINE; Value: NEGATIVE; Range: NEGATIVE; Status: F Test: OPIATES URINE; Value: NEGATIVE; Range: NEGATIVE; Status: F Test: TRICYCLIC ANTIDEPRESS URINE; Value: NEGATIVE; Range: NEGATIVE; Status: F Test Note: ; ALL PRESUMPTIVE POSITIVE FINDINGS ARE UNCONFIRMED NORMAL VALUES THRESHOLD IN NG/ML AMPHETAMINES 1000 METHAMPHETAMINES 1000 BARBITURATES 300 BENZODIAZEPINES 300 CANNABINOIDS (THC) 50 COCAINE METABOLITE 300 METHADONE 300 OPIATES 300 PHENCYCLIDINE 25 TRICYCLIC ANTIDEPRESSANTS 1000 RESULTS ARE FOR MEDICAL PURPOSES ONLY. ALL URINE SPECIMENS WILL BE SAVED FOR 3 DAYS. IF CONFIRMATION OF A PRESUMPTIVE POSTIVE SCREEN RESULT IS DESIRED, CALL CHEMISTRY ([phone]) AND REQUEST URINE TO BE SENT TO REFERENCE LAB. FOR A LIST OF CLOSELY RELATED COMPOUNDS PLEASE CALL THE LAB. Lab Order: Ethyl Alcohol (ethanol); SPEC'M 03/29/16 19:26 Test: ETHYL ALCOHOL (ETHANOL); Value: 0.003; Range: 0.000-0.010; Units: %; Status: F Lab Order: HCG,Serum Qualitative; SPEC'M 03/29/16 19: Test: HCG, SERUM QUALITATIVE; Value: NEGATIVE; Range: NEGATIVE; Status: F Lab Order: Liver Profile; [facility] 03/29/16 19: Test: AST/SGOT; Value: 13; Range: 15-37; Abnormal: Below low normal; Units: U/L; Status: F Test: ALT/SGPT; Value: 23; Range: 12-78; Units: U/L; Status: F Test: ALKALINE PHOSPHATASE; Value: 90; Range: 45-117; Units: U/L; Status: F Test: BILIRUBIN,TOTAL; Value: 0.3; Range: 0.2-1.0; Units: MG/DL; Status: F Test: BILIRUBIN,DIRECT; Value: < 0.1; Range: 0.0-0.2; Units: MG/DL; Status: F Test: TOTAL PROTEIN; Value: 7.5; Range: 6.4-8.2; Units: GM/DL; Status: F Test: ALBUMIN; Value: 4.0; Range: 3.2-5.2; Units: GM/DL; Status: F Test: ALBUMIN/GLOBULIN RATIO; Value: 1.14; Range: 1.00-1.93; Status: F Lab Order: Salicylate Level; SPEC' 03/29/16: Test: SALICYLATE LEVEL; Value: < 1.7; Range: 5.0-30.0; Abnormal: Below low normal; Units: MG/DL; Status: F Lab Order: Thyroid Stimulating Hormone; SPEC' 03/29/16 19: Test: THYROID STIMULATING HORMONE; Value: 1.070; Range: 0.463-3.98; Units: uIU/ML; Status: F Outcome: 03/29 20:22 Decision to Hospitalize by Provider. le 21:03 No special radiology studies were completed. slm 22:30 Discharge Assessment: Patient awake, alert and oriented x 3. No cognitive and/or slm functional deficits noted. Patient verbalized understanding of disposition instructions. patient administered narcotics - no. The following High Risk Discharge criteria are identified: None. Admitted to Psych accompanied by tech, via wheelchair, with chart. Condition: stable. 22:34 Patient left the ED. slm Signatures: Dispatcher Med[employer] EDMS Sandeep Alvarado, PSA PSA cl Cristy Odonnell, Reg Reg gb Gian Reese, Security Aide Secblaynepjf Kym, Jocelyne, PSA PSA ml4 Cynthia Guan Lisa, PRODUCTION DRILLING MACHINE OPERATOR PRODUCTION DRILLING MACHINE OPERATOR Kacey Powell,MARCOS RN Lori Romero,LUBNA RECYCLABLE MATERIALS SORTER slm Chart Complete MTDMartha
--- NOTE | 2016-03-31 23:36 | EDDOCDS ---
Physician Documentation [facility] Name: Marisol Simmons Age: 20 yrs Sex: Female : 1995 Arrival Date: 03/29/2016 Time: 17:19 Bed 31 Private MD: Disposition: 03/29/16 20:22 Hospitalization ordered by Justine Sears for Inpatient Admission. Preliminary diagnosis are Adjustment disorder with depressed mood, Suicidal ideations, Hallucinations, unspecified. - Bed requested for Admit. - Status is Inpatient Admission. slm - Condition is Stable. - Problem is an acute exacerbation. - Symptoms are unchanged. Historical: - Allergies: No known drug Allergies; LactoseI Intolerance; - Home Meds: 1. clonidine HCl 0.1 mg oral tab 3 times per day 2. Clozaril 100 mg oral tab 2 tabs nightly 3. Clozaril 100 mg oral tab 1 tab daily 4. Clozaril oral 50mg tab oral 1 tab nightly 5. lithium carbonate 450 mg oral TbER 1 tab 2 times per day 6. Synthroid 75 mcg Oral tab 1 tab once daily 7. multivitamin Oral cap Unknown 8. Lamictal 100 mg oral tab twice a day 9. Clozaril 100 mg oral tab 1 tab daily at noon 10. Zoloft 25 mg Oral tab 1.5 tabs once daily 11. Glucophage XR 500 mg Oral Tb24 2 tabs nightly 12. 1.5/30 (28) 1.5 mg-30 mcg (21)/75 mg (7) oral tab 1 tab once daily - PMHx: Hypothyroidism; Schizophrenia; - PSHx: none; - Social history: Smoking status: Patient states was never smoker of tobacco. No barriers to communication noted. - Family history: Not pertinent. - : The pt / caregiver states he / she is not on anticoagulants. Home medication list is obtained from the facility MAY. - Exposure Risk Screening:: None identified. 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 ml 17:21 Consult PFS/PSA/Student Success Coach: Patient's case requires discussion with on-call ml Psychiatrist ordered. 17:21 PSA/PFS to call Nursing Talent Development Director, to enter patient data on [place] Safe Act if patient ml involuntarily admitted or transferred for SI or HI ordered. 17:21 Confirm accurate psychiatric medication list and times of last dosage ordered. ml 17:21 Detain Pt Until Medically/PFS Cleared ordered. ml 17:22 Acetaminophen Level Ordered. EDMS 17:22 Basic Metabolic Profile Ordered. EDMS 17:22 Complete Blood Count Ordered. EDMS 17:22 Drug Eval Toxicology ED Only Ordered. EDMS 17:22 Ethyl Alcohol (ethanol) Ordered. EDMS 17:22 HCG,Serum Qualitative Ordered. EDMS 17:22 Liver Profile Ordered. EDMS 17:22 Salicylate Level Ordered. EDMS 17:22 Thyroid Stimulating Hormone Ordered. EDMS 17:55 REGULAR DIET PLASTIC BHATT+DIET ordered. EDMS 19:58 Financial registration complete. zo 19:59 Consult PFS/PSA/Student Success Coach complete. cl 19:59 Consult PFS/PSA/Student Success Coach: Patient's case requires discussion with on-call cl Psychiatrist complete. 19:59 PSA/PFS to call Nursing Talent Development Director, to enter patient data on [place] Safe Act if patient cl involuntarily admitted or transferred for SI or HI complete. 20:14 Complete Blood Count Reviewed. le 20:14 Drug Eval Toxicology ED Only Reviewed. le 20:14 HCG,Serum Qualitative Reviewed. le 20:20 [facility] Payment Agreement was scanned into [employer] and attached to record. zo 20:23 BED REQUEST+ADM ordered. EDMS 20:43 Admit to [facility]: ordered. EDMS 20:46 [facility] Legal paperwork was scanned into [employer] and attached to record. ml4 03/30 09:57 T-Sheet-- Draft Copy was scanned into [employer] and attached to record. gb Signatures: Dispatcher [employer] EDMS Kit Bland MD MD ml Lavin, Chris, PSA PSA cl Cristy Odonnell, Reg Reg gb Jocelyne Mejía, PSA PSA ml4 Roge, Linnea Morin, PILOT STEAM YACHT PILOT STEAM YACHT Kacey Powell,MARCOS RN [facility] Lori Zhou LPN LPN slm The chart was reviewed and I authenticate all verbal orders and agree with the evaluation and treatment provided.Attachments: 03/29 20:20 [facility] Payment Agreement zo 03/30 09:57 T-Sheet-- Draft Copy gb Chart Complete MTDD
--- NOTE | 2016-03-31 23:36 | EDDOCDS ---
Physician Documentation [facility] Name: Marisol Simmons Age: 20 yrs Sex: Female : 1995 Arrival Date: 03/29/2016 Time: 17:19 Bed 31 Private MD: Disposition: 03/29/16 20:22 Hospitalization ordered by Justine Sears for Inpatient Admission. Preliminary diagnosis are Adjustment disorder with depressed mood, Suicidal ideations, Hallucinations, unspecified. - Bed requested for Admit. - Status is Inpatient Admission. slm - Condition is Stable. - Problem is an acute exacerbation. - Symptoms are unchanged. Historical: - Allergies: No known drug Allergies; LactoseI Intolerance; - Home Meds: 1. clonidine HCl 0.1 mg oral tab 3 times per day 2. Clozaril 100 mg oral tab 2 tabs nightly 3. Clozaril 100 mg oral tab 1 tab daily 4. Clozaril oral 50mg tab oral 1 tab nightly 5. lithium carbonate 450 mg oral TbER 1 tab 2 times per day 6. Synthroid 75 mcg Oral tab 1 tab once daily 7. multivitamin Oral cap Unknown 8. Lamictal 100 mg oral tab twice a day 9. Clozaril 100 mg oral tab 1 tab daily at noon 10. Zoloft 25 mg Oral tab 1.5 tabs once daily 11. Glucophage XR 500 mg Oral Tb24 2 tabs nightly 12. 1.5/30 (28) 1.5 mg-30 mcg (21)/75 mg (7) oral tab 1 tab once daily - PMHx: Hypothyroidism; Schizophrenia; - PSHx: none; - Social history: Smoking status: Patient states was never smoker of tobacco. No barriers to communication noted. - Family history: Not pertinent. - : The pt / caregiver states he / she is not on anticoagulants. Home medication list is obtained from the facility MAY. - Exposure Risk Screening:: None identified. COMMERCIAL ADMINISTRATOR: 03/29 18:11 LMP 03/23/2016 [facility] Vital Signs: 17:49 BP 156 / 81; Pulse 107; Resp 16; Temp 98.5; Pulse Ox 99% ; [facility] 22:30 BP 169 / 96; Pulse 105; Resp 18; Temp 98.2; Pulse Ox 99% on R/A; Pain 0/10; slm MDM: 17:21 Consult PFS/PSA/Swatch Clerk ordered. ml 17:21 Consult PFS/PSA/Swatch Clerk: Patient's case requires discussion with on-call ml Psychiatrist ordered. 17:21 PSA/PFS to call Nursing Digital Forensics Investigator, to enter patient data on [place] Safe [place] if patient ml involuntarily admitted or transferred for SI or HI ordered. 17:21 Confirm accurate psychiatric medication list and times of last dosage ordered. ml 17:21 Detain Pt Until Medically/PFS Cleared ordered. ml 17:22 Acetaminophen Level Ordered. EDMS 17:22 Basic Metabolic Profile Ordered. EDMS 17:22 Complete Blood Count Ordered. EDMS 17:22 Drug Eval Toxicology ED Only Ordered. EDMS 17:22 Ethyl Alcohol (ethanol) Ordered. EDMS 17:22 HCG,Serum Qualitative Ordered. EDMS 17:22 Liver Profile Ordered. EDMS 17:22 Salicylate Level Ordered. EDMS 17:22 Thyroid Stimulating Hormone Ordered. EDMS 17:55 REGULAR DIET PLASTIC BHATT+DIET ordered. EDMS 19:58 Financial registration complete. zo 19:59 Consult PFS/PSA/Swatch Clerk complete. cl 19:59 Consult PFS/PSA/Swatch Clerk: Patient's case requires discussion with on-call cl Psychiatrist complete. 19:59 PSA/PFS to call Nursing Digital Forensics Investigator, to enter patient data [place] Safe [place] if patient cl involuntarily admitted or transferred for SI or HI complete. 20:14 Complete Blood Count Reviewed. le 20:14 Drug Eval Toxicology ED Only Reviewed. le 20:14 HCG,Serum Qualitative Reviewed. le 20:20 [facility] [place] Agreement was scanned into [employer] and attached to record. zo 20:23 BED REQUEST+ADM ordered. EDMS 20:43 Admit to [facility]: ordered. EDMS 20:46 M[facility] Legal paperwork was scanned into [employer] and attached to record. ml4 03/30 09:57 T-Sheet-- Draft Copy was scanned into [employer] and attached to record. gb Signatures: Dispatcher [employer] EDMS Kit Bland MD MD ml Lavin, Chris, PSA PSA cl Cristy Odonnell, Reg Reg gb Jocelyne Mejía, PSA PSA ml4 Roge, Linnea Morin, BACKER UP BACKER UP Kacey Powell,MARCOS RN [facility] Lori Zhou LPN LPN slm The chart was reviewed and I authenticate all verbal orders and agree with the evaluation and treatment provided.Attachments: 03/29 20:20 [facility] [place] Agreement zo 03/30 09:57 T-Sheet-- Draft Copy gb Chart Complete MTDD
[2016-04-01] MEDS: LEVOTHYROXINE 0.075 MG TAB (75 MCG) PO SCH (06:08)
[2016-04-01 06:49] VITALS: BP 134/81
[2016-04-01] MEDS: cloZAPine 100 MG TAB (S0136) PO SCH ×3 (08:02→20:24)
[2016-04-01] MEDS: LITHIUM CARBONATE 450 MG **CR** TAB PO SCH ×2 (08:02→20:24)
[2016-04-01] MEDS: lamoTRIgine 100MG TAB PO SCH ×2 (08:02→20:23)
[2016-04-01] MEDS: SERTRALINE HCL 25 MG TABLET PO SCH (08:02)
[2016-04-01] MEDS: cloNIDine 0.1 MG TAB PO SCH ×3 (08:03→20:23)
--- NOTE | 2016-04-01 11:59 | IPNPDOC ---
[facility] Progress Note Progress Note DATE OF SERVICE: 03/31/16 SUBJECTIVE: Patient reports mood as good today. She reports an episode of headache which was alleviated by Tylenol. She reports these are chronic. She denies medication side effects. She continues to report in intensity of depression at 0/10. She reports intensely level of anxiety at 0/10. She is medically compliant. She reports attending groups, which she reports are beneficial. She denies auditory hallucinations again today. Patient reports no medication side effects. She reports no issues with sleep. Patient reports sleeping 7-8 hours last night. Appetite within normal limits. Patient denies SI /HI, she also denies AH/VH. No bizarre behavior, thoughts, affect, or delusional thoughts expressed during this interview. VITAL SIGNS: Please see below. CURRENT MEDICATIONS: See below. MENTAL STATUS EXAMINATION: Patient is a pleasant, cooperative, obese, causasian female in NAD]. Speech: Is RRR and spontaneous]. Thought processes: [Linear & Goal directed.] Thought content: [Appropriate]. Description of associations: [appropriate]. Description of abnormal or psychotic thoughts: [no perceptual issues] Judgment: [good] Insight: [good] Oriented to: [Time, place and person.] Recent and Remote Memory: [good]. Attention Span and Concentration: [good]. Fund of knowledge: [Adequate] Mood: [euthymic]. Affect: [broad]. ASSESSMENT: [-Schizophrenia. PLAN: -Continue remaining psychotropic regimen as currently written. -Continue all home medical medications as written. -Staff to contact [facility] group therapy counselor. With my group therapy counselor to visit patient and inform staff if patient is back to baseline. -Tentative discharge Tuesday. EDOD: Tuesday04/05/16 to her [facility] half-way. TIME SPENT: [30] minutes Vital Signs Vital Signs Date Time Temp Pulse Resp B/P Pulse Ox O2 Delivery O2 Flow Rate FiO2 04/01/16 08:03 134/81 04/01/16 06:49 98.1 85 16 Current Medications Current Medications Acetaminophen (Tylenol) 650 mg Q6HP PRN PO HEADACHE or DISCOMFORT Last administered on 03/31/16t 20:34; Start 03/30/16 at 00:45; Stop 04/29/16 at 00:44 Al Hydrox/Mg Hydrox/Simethicone (Mylanta) 30 ml Q4HP PRN PO HEARTBURN/ INDIGESTION; Start 03/30/16 at 00:45; Stop 04/29/16 at 00:44 Clonidine HCl (Catapres) 0.1 mg TID PO Last administered on 04/01/16 08:03; Start 03/30/16 at 09:00; Stop 04/29/16 at 08:59 Clozapine (Clozaril) 100 mg BID@,12 PO Last administered on 04/01/16 08:02; Start 03/30/16 at 09:00; Stop 04/06/16 at 08:59 Clozapine (Clozaril) 250 mg QHS PO Last administered on 03/31/16 20:30; Start 03/30/16 at 21:00; Stop 04/06/16 at 20:59 Home Med (Med Rec Complete!) ASDIRECTED XX ; Start 03/29/16 at 21:00; Stop at 22:39; Status DC Lamotrigine (LaMICtal) 100 mg BID PO Last administered on 04/01/16 08:02; Start 03/30/16 at 09:00; Stop 04/29/16 at 08:59 Levothyroxine Sodium (Synthroid) 0.075 mg DAILY@06 PO Last administered on 04/01 06:08; Start 03/30/16 at 06:00; Stop 04/29/16 at 05:59 [place] Carbonate (Eskalith-Cr) 450 mg BID PO Last administered on 04/01/16 08 :02; Start 03/30/16 at 09:00; Stop 04/29/16 at 08:59 Magnesium Hydroxide (Milk Of Magnesia) 30 ml DAILYPRN PRN PO CONSTIPATION; Start 03/30/16 at 00:45; Stop 04/29/16 at 00:44 Metformin HCl (Glucophage Xr) 1,000 mg QHS PO ; Start 03/29/16 at 21:00; Stop at 00:49; Status DC Metformin HCl (Glucophage Xr) 1,000 mg QHS PO Last administered on 03/31/16 20 :31; Start 03/30/16 at 21:00; Stop 04/29/16 at 20:59 Miscellaneous (Unresolved Patient Own Med Order) SEE LABEL COMMENTS UNRESOLVED XX ; Start 03/30/16 at 00:01; Stop 03/30/16 at 13:38; Status DC Patient Own Medication (Patient'S Own Med) 1.5/30 MG/ MCG 1 ... QHS PO Last administered on 03/31/16 20:29; Start 03/30/16 at 21:00; Stop 04/29/16 at 20:59 Sertraline HCl (Zoloft) 37.5 mg DAILY PO Last administered on 04/01/16 08:02; Start 03/30/16 at 09:00; Stop 04/29/16 at 08:59 Trazodone HCl (Desyrel) 50 mg QHSP PRN PO INSOMNIA; Start 03/30/16 at 00:45; Stop 04/29/16 at 00:44 Allergies Coded Allergies: Lactose (Unverified Allergy, Unknown, 03/29/16) PATTY CASE MD Apr 01, 2016 11:59
--- NOTE | 2016-04-01 12:00 | IPNPDOC ---
[facility] Progress Note Progress Note DATE OF SERVICE: 04/01/16 SUBJECTIVE: Patient reports mood as pretty good today. She reports being told by staff that her TLS assisted staff will be here on the unit today. Staff here to meet with patient and informed the team if patient is back to baseline mentation. So patient will discharge to TLS assisted tomorrow afternoon at 2 PM. Patient reports feeling comfortable with discharge. She reports another day without auditory hallucinations. Affect is bright thought process is linear and goal-directed. She continues to report in intensity of depression at 0/10. She reports intensely level of anxiety at 0/10. She is medically compliant. She reports attending groups, which she reports are beneficial. She denies auditory hallucinations again today. Patient reports no medication side effects. She reports no issues with sleep. Patient reports sleeping 7-8 hours last night. Appetite within normal limits. Patient denies SI/HI, she also denies AH/VH. No bizarre behavior, thoughts, affect, or delusional thoughts expressed during this interview. VITAL SIGNS: Please see below. CURRENT MEDICATIONS: See below. MENTAL STATUS EXAMINATION: Patient is a pleasant, cooperative, obese, causasian female in NAD]. Speech: Is RRR and spontaneous]. Thought processes: [Linear & Goal directed.] Thought content: [reports feeling comfortable to discharge back to her TLS assisted]. Description of associations: [appropriate]. Description of abnormal or psychotic thoughts: [no perceptual issues] Judgment: [good] Insight: [good] Oriented to: [Time, place and person.] Recent and Remote Memory: [good]. Attention Span and Concentration: [good]. Fund of knowledge: [Adequate] Mood: [euthymic]. Affect: [broad]. ASSESSMENT: [-Schizophrenia. PLAN: -Continue remaining psychotropic regimen as currently written. -Continue all home medical medications as written. -TLS staff meeting with patient at 2 PM today to inform staff if patient is back to baseline. -Tentative discharge tomorrow afternoon at 2 PM. EDOD: Tuesday04/02/2016 to her TLS assisted. TIME SPENT: [30] minutes Vital Signs Vital Signs Date Time Temp Pulse Resp B/P Pulse Ox O2 Delivery O2 Flow Rate FiO2 04/01/16 08:03 134/81 04/01/16 06:49 98.1 85 16 Current Medications Current Medications Acetaminophen (Tylenol) 650 mg Q6HP PRN PO HEADACHE or DISCOMFORT Last administered on 03/31/16 20:34; Start 03/30/16 at 00:45; Stop 04/29/16 at 00:44 Al Hydrox/Mg Hydrox/Simethicone (Mylanta) 30 ml Q4HP PRN PO HEARTBURN/ INDIGESTION; Start 03/30/16 at 00:45; Stop 04/29/16 at 00:44 Clonidine HCl (Catapres) 0.1 mg TID PO Last administered on 04/01/16 08:03; Start 03/30/16 at 09:00; Stop 04/29/16 at 08:59 Clozapine (Clozaril) 100 mg BID@09,12 PO Last administered on 04/01/16 08:02; Start 03/30/16 at 09:00; Stop 04/06/16 at 08:59 Clozapine (Clozaril) 250 mg QHS PO Last administered on 03/31/16 20:30; Start 03/30/16 at 21:00; Stop 04/06/16 at 20:59 Home Med (Med Rec Complete!) ASDIRECTED XX ; Start 03/29/16 at 21:00; Stop at 22:39; Status DC Lamotrigine (LaMICtal) 100 mg BID PO Last administered on 04/01/16 08:02; Start 03/30/16 at 09:00; Stop 04/29/16 at 08:59 Levothyroxine Sodium (Synthroid) 0.075 mg DAILY@06 PO Last administered on 04/01 06:08; Start 03/30/16 at 06:00; Stop 04/29/16 at 05:59 [place] Carbonate (Eskalith-Cr) 450 mg BID PO Last administered on 04/01/16 08 :02; Start 03/30/16 at 09:00; Stop 04/29/16 at 08:59 Magnesium Hydroxide (Milk Of Magnesia) 30 ml DAILYPRN PRN PO CONSTIPATION; Start 03/30/16 at 00:45; Stop 04/29/16 at 00:44 Metformin HCl (Glucophage Xr) 1,000 mg QHS PO ; Start 03/29/16 at 21:00; Stop at 00:49; Status DC Metformin HCl (Glucophage Xr) 1,000 mg QHS PO Last administered on 03/31/16 20 :31; Start 03/30/16 at 21:00; Stop 04/29/16 at 20:59 Miscellaneous (Unresolved Patient Own Med Order) SEE LABEL COMMENTS UNRESOLVED XX ; Start 03/30/16 at 00:01; Stop 03/30/16 at 13:38; Status DC Patient Own Medication (Patient'S Own Med) 1.5/30 MG/ MCG 1 ... QHS PO Last administered on 03/31/16 20:29; Start 03/30/16 at 21:00; Stop 04/29/16 at 20:59 Sertraline HCl (Zoloft) 37.5 mg DAILY PO Last administered on 04/01/16 08:02; Start 03/30/16 at 09:00; Stop 04/29/16 at 08:59 Trazodone HCl (Desyrel) 50 mg QHSP PRN PO INSOMNIA; Start 03/30/16 at 00:45; Stop 04/29/16 at 00:44 Allergies Coded Allergies: Lactose (Unverified Allergy, Unknown, 03/29/16) PATTY CASE MD Apr 01, 2016 12:00
[2016-04-01 18:00] VITALS: BP 145/85
[2016-04-01] MEDS: JUNEL FE PO SCH (20:23)
[2016-04-01] MEDS: metFORMIN XR 500MG TAB *GLUCOPHAGE XR PO SCH (20:24)
[2016-04-02 06:00] VITALS: BP 135/68
[2016-04-02] MEDS: LEVOTHYROXINE 0.075 MG TAB (75 MCG) PO SCH (06:27)
[2016-04-02 08:26] VITALS: BP 132/68
[2016-04-02] MEDS: SERTRALINE HCL 25 MG TABLET PO SCH (08:26)
[2016-04-02] MEDS: cloNIDine 0.1 MG TAB PO SCH (08:26)
[2016-04-02] MEDS: LITHIUM CARBONATE 450 MG **CR** TAB PO SCH (08:26)
[2016-04-02] MEDS: lamoTRIgine 100MG TAB PO SCH (08:26)
[2016-04-02] MEDS: cloZAPine 100 MG TAB (S0136) PO SCH ×2 (08:27→12:10)
== END 2016-04-02 14:45 | disposition home or self-care (01) | DRG 750 ==
LOC: M ED 17:19 → M PSY 22:40
PROVIDERS: ADMIT Psychiatry & Neurology Psychiatry; ATTEND Psychiatry & Neurology Psychiatry
DX: F20.9 Schizophrenia, unspecified (principal); E03.9 Hypothyroidism, unspecified; E66.9 Obesity, unspecified; R73.01 Impaired fasting glucose; Z79.84 Long term (current) use of oral hypoglycemic drugs; Z79.899 Other long term (current) drug therapy

== ENCOUNTER 2016-06-19 20:45 | Emergency (ER) | payer MEDICAID ==
[~2016-06-19] VITALS: Ht 154.9 cm; Wt 127.0 kg
[~2016-06-19 20:45] MED LIST: CLON-412 PO; CLOZ100T PO; CLOZ25TA2 PO; JUNE1.5T PO; LAMI1TAB7 PO; LITH150C PO; LITH45TASA PO; METF500T4 PO; SYNT75TA PO; VITMTA PO; ZOLO25TA PO
[2016-06-19 21:51] LABS: CONTROL LINE HCG INT CTR LINE PRESENT
[2016-06-19 21:52] LABS: MEAN CORPUSCULAR HEMOGLOBIN 30.3 pg (27.0-33.0); MEAN CORPUSCULAR HGB CONC 33.5 g/dl (32.0-36.5); MEAN CORPUSCULAR VOLUME 90.4 fl (80.0-96.0); RED CELL DISTRIBUTION WIDTH 12.3 % (11.5-14.5); WHITE BLOOD COUNT 7.2 K/mm3 (4.0-10.0)
[2016-06-19 22:06] LABS: ALBUMIN 3.8 GM/DL (3.2-5.2); ALBUMIN/GLOBULIN RATIO 1.15 (1.00-1.93); ALKALINE PHOSPHATASE 95 U/L (45-117); ALT/SGPT 23 U/L (12-78); ANION GAP 7 MEQ/L (8-16); AST/SGOT 14 U/L (15-37); BILIRUBIN,DIRECT < 0.1 MG/DL (0.0-0.2); BILIRUBIN,TOTAL 0.1 MG/DL (0.2-1.0); BLOOD UREA NITROGEN 15 MG/DL (7-18); CARBON DIOXIDE LEVEL 25 MEQ/L (21-32); CHLORIDE LEVEL 108 MEQ/L (98-107); CREATININE FOR GFR 0.91 MG/DL (0.55-1.02); GLUCOSE, FASTING 108 MG/DL (70-105); POTASSIUM SERUM 3.9 MEQ/L (3.5-5.1); SODIUM LEVEL 140 MEQ/L (136-145); TOTAL PROTEIN 7.1 GM/DL (6.4-8.2)
[2016-06-19 22:34] LABS: LITHIUM LEVEL 0.61 MEQ/L (0.60-1.20)
[2016-06-19 23:12] VITALS: BP 134/84
== END 2016-06-19 23:13 | disposition home or self-care (01) ==
LOC: M ED 21:32
DX: F20.9 Schizophrenia, unspecified (principal); F32.9 Major depressive disorder, single episode, unspecified; E07.9 Disorder of thyroid, unspecified; Z79.899 Other long term (current) drug therapy; Z79.84 Long term (current) use of oral hypoglycemic drugs
CPT/HCPCS: 36415; 80048; 80076; 80178; 84443; 84703; 85027; 99285; G0480

== ENCOUNTER 2016-06-21 20:28 | Inpatient (IN) | payer MEDICAID ==
[~2016-06-21] VITALS: Ht 152.4 cm; Wt 103.9 kg
[2016-06-21 22:34] LABS: MEAN CORPUSCULAR HEMOGLOBIN 29.7 pg (27.0-33.0); MEAN CORPUSCULAR HGB CONC 32.9 g/dl (32.0-36.5); MEAN CORPUSCULAR VOLUME 90.5 fl (80.0-96.0); RED CELL DISTRIBUTION WIDTH 12.2 % (11.5-14.5); WHITE BLOOD COUNT 9.2 K/mm3 (4.0-10.0)
[2016-06-21 22:49] LABS: CONTROL LINE HCG INT CTR LINE PRESENT
[2016-06-21 22:54] LABS: METHADONE URINE NEGATIVE (NEGATIVE)
[2016-06-21] MEDS ORDERED: MAALOX 30 ML SUSP *UDC PO PRN (23:00)
[2016-06-21] MEDS ORDERED: MOM 30ML SUSPENSION UDC PO PRN (23:00)
[2016-06-21 23:06] LABS: ALBUMIN/GLOBULIN RATIO 1.14 (1.00-1.93); ALKALINE PHOSPHATASE 90 U/L (45-117); ALT/SGPT 19 U/L (12-78); ANION GAP 8 MEQ/L (8-16); AST/SGOT 10 U/L (15-37); BILIRUBIN,DIRECT < 0.1 MG/DL (0.0-0.2); BILIRUBIN,TOTAL 0.2 MG/DL (0.2-1.0); BLOOD UREA NITROGEN 12 MG/DL (7-18); CARBON DIOXIDE LEVEL 27 MEQ/L (21-32); CHLORIDE LEVEL 107 MEQ/L (98-107); CREATININE FOR GFR 0.82 MG/DL (0.55-1.02); GLUCOSE, FASTING 99 MG/DL (70-105); POTASSIUM SERUM 4.3 MEQ/L (3.5-5.1); SODIUM LEVEL 142 MEQ/L (136-145); TOTAL PROTEIN 7.5 GM/DL (6.4-8.2)
[2016-06-22] MEDS ORDERED: LITH150C PO (00:19)
[2016-06-22] MEDS: cloZAPine 100 MG TAB (S0136) PO SCH ×4 (00:44→20:22)
[2016-06-22] MEDS: metFORMIN XR 500MG TAB *GLUCOPHAGE XR PO SCH ×2 (00:44→20:22)
[2016-06-22] MEDS: traZODone 50 MG TAB PO PRN ×2 (00:45→20:21)
[2016-06-22] MEDS: cloZAPine 25 MG TAB (S0136) PO SCH ×2 (00:45→20:21)
[2016-06-22] MEDS: LITHIUM CARBONATE 450 MG **CR** TAB PO SCH ×3 (00:45→20:22)
[2016-06-22] MEDS: lamoTRIgine 100MG TAB PO SCH ×3 (00:45→20:21)
[2016-06-22] MEDS: cloNIDine 0.1 MG TAB PO SCH ×4 (00:45→20:22)
[2016-06-22 01:02] VITALS: BP 150/98
[2016-06-22] MEDS: LEVOTHYROXINE 0.075 MG TAB (75 MCG) PO SCH (06:21)
[2016-06-22 06:43] VITALS: BP 135/87
[2016-06-22] MEDS: SERTRALINE HCL 25 MG TABLET PO SCH (08:28)
[2016-06-22] MEDS: MULTIVITAMINS/MINERALS THERAP 1 TAB PO SCH (08:29)
[2016-06-22] MEDS ORDERED: LITHIUM CARBONATE 150 MG CAP PO SCH (09:00)
[2016-06-22 18:00] VITALS: BP 132/68
--- NOTE | 2016-06-22 20:20 | HPEPDOC ---
[facility] History & Physical History and Physical DATE OF ADMISSION: Jun 21, 2016 at 22:31 LEGAL STATUS AT ADMISSION: Involuntary CHIEF COMPLAINT: Patient said she had suicidal ideation HISTORY OF THE PRESENT ILLNESS: Patient is a 20-year-old female, who was admitted last night to the Inpatient Mental health Unit because she stated that she was hearing voides that were commanding her to kill herself. She stated she was very depressed because she didnt see her mother for [employer].Apparently, it was her mother who told her not to come home for [employer]. Marisol lives at [facility] in [place] and they have told her mother that she is having problems adjusting to [facility], and for that reason, they thought it was better not to join her family for [employer]. Patient has a longstanding history of Schizophrenia and is being treated with multiple psychiatric medications. PSYCHIATRIC REVIEW OF SYSTEMS: Affective: Sad, depressed, positive for SI Anxiety: Anxious, cant sit still Trauma: None reported by the patient. Psychosis: Reports command hallucinations that have been telling her to kill herself Personally: To be ruled out. Needs further assesment PAST PSYCHIATRIC HISTORY: Prior Psychiatric Disorder: History of schizophrenia treated with multiple medications Outpatient Treatment: She lives at a half-way where she receives treatment Suicidal/Self injurious:Previous history of outbursts, reported by her mother, who stated the patient has a tendency to act out when she is upset about something. Psychotropic Medication History: She is on multiple psychiatric medications and she has been treated for mentall illness since she was 9 years old. ALLERGIES: Please see below. FAMILY PSYCHIATRIC HISTORY: Denies SOCIAL HISTORY: Early Relations/development: She has two siblings, has had a good relationship with them and her mother. Her relationship with her father is estranged. Sibling order: Will further asses Paternal relationships: Very close to her mother who is her main emotional support. She hasnt talked to her father for several years. He has a h/o schizophrenia. Education: 12th. grade Occupational: Unemployed. Lives at [facility]. Legal: None Martial: Not Economic: Not perceiving an income Supports: Mainly her mother and siblings. Abuse/trauma: Not reported SUBSTANCE ABUSE HISTORY: Denies PAST MEDICAL/SURGICAL HISTORY: 1. Obesity 2. Possibly pre diabetic VITAL SIGNS: Temperature , pulse , respiratory rate , blood pressure , pulse oximetry % on room air. MENTAL STATUS EXAMINATION: General appearance: Patient is a 20-year old female, who is alert, oriented x 3 , cooperative, with poor eye contact and good hygiene, dressed in hospital gown. Speech: Volume, tone and spped are normal. Not tangential and not circumstantial Thought processes: Normal. Thought content: Negative for homicidal ideation, positive for suicidal ideation , denies command hallucinations at this time but admits having them for the last couple of days. Denies visual hallucinations. Abstract reasoning and computation: Its difficult for her to perform this tasks at the present time, but she is able to do it. Description of associations: No loosening of associations Description of abnormal or psychotic thoughts: Command hallucinations telling her to kill herself for the last couple of days. She hasnt heard the voices this afternoon. Judgment: Poor Insight: Poor Orientation: Oriented x 3 Recent and remote memory: Intact Attention span and concentration: Poor Fund of knowledge: Fair Mood: "I feel very sad because I want able to be with my mom for [place]" Affect: Sad, depressed DIAGNOSES: 1. Schizophrenia 2. Adjustment Disorder with Depressed mood, ASSESSMENT: Her medications need to be reviewed and possibly changed ( for example, Clozaril). Needs further assesment and needs to be stabilized. Needs supportive psychotherapy, attend groups and gain insight into her situation/ illness. PROBLEM LIST: 1. Schizophrenia 2. Adjustment disorder with depressed mood. 3. R/O MDD 4. R/O Intellectual Disability (Mild) INITIAL TREATMENT PLAN: 1. Patient was admitted: Involuntarily admission 2. Complete history was obtained. 3. With patients permission, family will be contacted and database will be expanded. 4. Patients medication regimen will be reviewed and changed accordingly. 5. Patient will be provided with protected environment. 6. Patient will be treated with individual, group, and milieu therapies. 7. Patient will receive supportive psych-education. 8. Discharge planning will commence immediately. 9. Outpatient follow-up treatment will be strongly recommended. 10. The initial treatment plan will focus initially on: * Depression. * Risk for suicide. * Substance abuse. ESTIMATED LENGTH OF STAY: 5-7 DAYS. TIME SPENT COUNSELING AND COORDINATING INITIAL CARE: 30 minutes. Laboratory Data 24H Labs Laboratory Tests 2 06/21/16 22:18: Urine Amphetamines Screen NEGATIVE, Urine Benzodiazepines Screen NEGATIVE, Urine Opiates Screen NEGATIVE, Urine Barbiturates Screen NEGATIVE, Urine Cannabinoids Screen NEGATIVE, Urine Cocaine Metabolite Screen NEGATIVE, Urine Methadone Screen NEGATIVE, Urine Phencyclidine Screen NEGATIVE 06/21/16 22:19: Acetaminophen Level < 2.0L, Aspartate Amino Transf (AST/SGOT) 10L, Alanine Aminotransferase (ALT/SGPT) 19, Alkaline Phosphatase 90, Total Bilirubin 0.2#, Direct Bilirubin < 0.1, Albumin 4.0, Albumin/Globulin Ratio 1.14, Anion Gap 8, Calcium Level 9.0, Ethyl Alcohol Level < 0.003, Human Chorionic Gonadotropin, Qual NEGATIVE, Salicylates Level < 1.7L, Thyroid Stimulating Hormone (TSH) 2.130 , Total Protein 7.5 CBC/BMP Laboratory Tests 06/21/16 22:18 Red Blood Count 4.19, Mean Corpuscular Volume 90.5, Mean Corpuscular Hemoglobin 29.7, Mean Corpuscular Hemoglobin Concent 32.9, Red Cell Distribution Width 12.2 06/21/16 22:19 Medications Scheduled ( 1.5-30 mg-Mcg) 1 Tab Tab 1 TAB PO QHS CONTROL (Reported) Clonidine Hydrochloride (Clonidine HCl) 0.1 Mg Tab 0.1 MG PO TID hypertension ( Reported) Clozapine (Clozaril) 100 Mg Tab 100 MG PO BID schizophrenia (Reported) MORNING & NOON Clozapine (Clozaril) 100 Mg Tab 200 MG PO QHS schizophrenia (Reported) 250MG TOTAL QHS Clozapine (Clozaril) 25 Mg Tab 50 MG PO QHS schizophrenia (Reported) 250MG TOTAL QHS Lamotrigine (Lamictal) 100 Mg Tab 100 MG PO BID mood stabalizer (Reported) Levothyroxine Sodium (Synthroid) 75 Mcg Tab 75 MCG PO DAILY hypothyroidism ( Reported) [place] Carbonate ([place] Carbonate ER) 450 Mg Tabcr 450 MG PO BID MOOD ( Reported) [place] Carbonate ([place] Carbonate) 150 Mg Cap 150 MG PO QHS MOOD (Reported) w/ 450 mg ER Metformin Hydrochloride (Metformin HCl ER) 500 Mg Tab 1,000 MG PO QHS DIABETES ( Reported) Multivitamins *[facility] STOCKED* (Thera M Plus *[facility] STOCK[facility]*) 1 Tab Tab 1 TAB PO DAILY SUPPLEMENT (Reported) Sertraline Hcl (Zoloft) 25 Mg Tab 37.5 MG PO DAILY DEPRESSION (Reported) Allergies Coded Allergies: Lactose (Unverified Allergy, Unknown, 03/29/16) JAYNE GUZMAN MD Jun 22, 2016 20:20
[2016-06-22] MEDS: ACETAMINOPHEN TAB 650MG DOSE (2X325MG) PO PRN (20:21)
[2016-06-23 06:21] VITALS: BP 134/63
[2016-06-23] MEDS: LEVOTHYROXINE 0.075 MG TAB (75 MCG) PO SCH (06:30)
[2016-06-23] MEDS: MULTIVITAMINS/MINERALS THERAP 1 TAB PO SCH (08:19)
[2016-06-23] MEDS: cloNIDine 0.1 MG TAB PO SCH ×3 (08:19→20:05)
[2016-06-23] MEDS: SERTRALINE HCL 25 MG TABLET PO SCH (08:19)
[2016-06-23] MEDS: lamoTRIgine 100MG TAB PO SCH ×2 (08:19→20:05)
[2016-06-23] MEDS: LITHIUM CARBONATE 450 MG **CR** TAB PO SCH ×2 (08:19→20:05)
[2016-06-23] MEDS: cloZAPine 100 MG TAB (S0136) PO SCH ×3 (08:20→20:06)
--- NOTE | 2016-06-23 14:58 | IPNPDOC ---
[facility] Progress Note Progress Note DATE OF SERVICE: 06/23/16 HISTORY: Evaluated 20 year old female with history of Schizophrenia who was brought to the Emergency Room by staff from [facility] because she was threatening to kill herself and reported she was having command hallucinations that were telling her to hurt herself. The patient admits that she was very sad because she was unable to be at home for [facility] and that she misses her mother. The patient states that she was diagnosed as having mental problems since she was a young child. She was diagnosed with ADHD, patient was diagnosed with bipolar disorder, then with schizoaffective disorder and now with schizophrenia through the years. She is on multiple psychiatric medications including Clozaril, Lamictal and lithium among others. According to the history that her mother joe Galindo has a tendency for acting out when she feels upset. VITAL SIGNS: See below. NEW TEST RESULTS: None CURRENT MEDICATIONS: See below. MENTAL STATUS EXAMINATION: Patient is a 20-year old female, who is dressed in hospital clothes, cooperative with interview, calmed with good hygiene and fair eye contact Speech: Normal. Not tangential and not circumstantial Language skills are fair. Thought processes including: Linear, coherent. Thought content: Negative for suicidal ideation, negative for homicidal ideation , negative for auditory or visual hallucinations. Helplessness and hopelessness are present . Abstract reasoning, and computation: She has problems with abstract reasoning and computation Description of associations: No loosening of associations Description of abnormal or psychotic thoughts: She states that she hasn't heard voices since she came in to the inpatient mental health unit and that occasionally she sees a girl that talks to her and sometimes this referral is nice and sometimes she isn't. Judgment: Poor. Insight: Poor. Orientation: Oriented 3. Recent and remote memory: Recent memory is intact but she cannot recall remote past events. Attention span and concentration: Poor. Language: Average. Fund of knowledge: Fair. Mood: I feel better now but I still miss my mother. Affect: Sad, depressed DIAGNOSES: 1. Schizophrenia. 2. Adjustment disorder with depressed mood. 3. Rule out major depressive disorder. ASSESSMENT: Patient needs to be hospitalized for further treatment and stabilization until insight, judgment, impulse control are improved as well as any other sign of psychosis and depression. MANAGEMENT PLAN: Until she is stabilized she will be discharged most likely to [facility] where she came from so that she can continue treatment. TIME SPENT: 25 minutes. Vital Signs Vital Signs Date Time Temp Pulse Resp B/P Pulse Ox O2 Delivery O2 Flow Rate FiO2 06/23/16 08:19 137/94 06/23/16 06:21 98.6 81 18 06/21/16 23:34 98 Current Medications Current Medications Acetaminophen (Tylenol Tab) 650 mg Q6HP PRN PO HEADACHE or DISCOMFORT Last administered on 06/22/16 20:21; Start 06/21/16 at 23:00; Stop 07/21/16 at 22:59 Al Hydrox/Mg Hydrox/Simethicone (Mylanta) 30 ml Q4HP PRN PO HEARTBURN/ INDIGESTION; Start 06/21/16 at 23:00; Stop 07/21/16 at 22:59 Clonidine HCl (Catapres) 0.1 mg TID PO Last administered on 06/23/16 08:19; Start 06/21/16 at 21:00; Stop 07/21/16 at 20:59 Clozapine (Clozaril) 50 mg QHS PO Last administered on 06/22/16 20:21; Start 06/21/16 at 21:00; Stop 06/28/16 at 20:59 Clozapine (Clozaril) 100 mg BID@09,12 PO Last administered on 06/23/16 11:42; Start 06/22/16 at 09:00; Stop 06/29/16 at 08:59 Clozapine (Clozaril) 200 mg QHS PO Last administered on 06/22/16 20:22; Start 06/21/16 at 21:00; Stop 06/28/16 at 20:59 Home Med (Med Rec Complete!) ASDIRECTED XX ; Start 06/22/16 at 00:30; Stop at 00:30; Status DC Lamotrigine (LaMICtal) 100 mg BID PO Last administered on 06/23/16 08:19; Start 06/21/16 at 21:00; Stop 07/21/16 at 20:59 Levothyroxine Sodium (Synthroid) 0.075 mg DAILY@06 PO Last administered on 06/23 06:30; Start 06/22/16 at 06:00; Stop 07/22/16 at 05:59 [place] Carbonate (Eskalith-Cr) 450 mg BID PO Last administered on 06/23/16 08 :19; Start 06/21/16 at 21:00; Stop 07/21/16 at 20:59 Turin Carbonate (Turin Carbonate) 450 mg BID PO ; Start 06/22/16 at 09:00; Stop 06/22/16 at 09:00; Status DC Magnesium Hydroxide (Milk Of Magnesia) 30 ml DAILYPRN PRN PO CONSTIPATION; Start 06/21/16 at 23:00; Stop 07/21/16 at 22:59 Metformin HCl (Glucophage Xr) 1,000 mg QHS PO Last administered on 06/22/16 20 :22; Start 06/21/16 at 21:00; Stop 07/21/16 at 20:59 Multivitamins (Theragram-M) 1 tab DAILY PO Last administered on 06/23/16 08:19 ; Start 06/22/16 at 09:00; Stop 07/22/16 at 08:59 Sertraline HCl (Zoloft) 37.5 mg DAILY PO Last administered on 06/23/16 08:19; Start 06/22/16 at 09:00; Stop 07/22/16 at 08:59 Trazodone HCl (Desyrel) 50 mg QHSP PRN PO INSOMNIA Last administered on 20:21; Start 06/21/16 at 23:00; Stop 07/21/16 at 22:59 Allergies Coded Allergies: Lactose (Unverified Allergy, Unknown, 03/29/16) JAYNE GUZMAN MD Jun 23, 2016 14:58
[2016-06-23 18:00] VITALS: BP 136/87
--- NOTE | 2016-06-23 19:58 | HPE ---
DATE OF ADMISSION: 06/21/2016 HISTORY OF PRESENT ILLNESS: Please refer to psychiatric history and evaluation for further details on the this admission. This examination and history is intended for medical issues, which may need treatment, followup, or consult on this 20-year-old female. PRIMARY CARE PROVIDER: [facility]. ALLERGIES: LACTOSE. PAST MEDICAL HISTORY: 1. Hypothyroidism. 2. Schizophrenia. 3. Obesity. 4. Ggl-alvpjvn-qzhjvxdjj diabetes, type 2. PAST SURGICAL HISTORY: [place] teeth extraction. SOCIAL HISTORY: She is single. She does not smoke cigarettes. She does not drink alcohol. She does not use recreational drugs. FAMILY HISTORY: Noncontributory. LABORATORY STUDIES: CBC is normal. Electrolytes were normal. BUN and creatinine were 12 and 0.82. TSH was therapeutic at 2.13. Toxicology screen was negative. HOME MEDICATIONS: - clonidine 0.1 mg by mouth three times a day - Clozaril 50 mg by mouth at bedtime - Clozaril 100 mg by mouth daily and 200 mg by mouth at bedtime - Lamictal 100 mg by mouth twice a day - levothyroxine 75 mcg by mouth daily - lithium carbonate 150 mg by mouth at bedtime - lithium carbonate 450 mg by mouth twice a day - metformin 1000 mg by mouth daily XR - multivitamin one by mouth daily - sertraline 37.5 mg by mouth daily - Junel Fe one by mouth daily at bedtime control REVIEW OF SYSTEMS: A 10-systems review was done and was unremarkable. Patient had no complaints. EKG done 03/30/2016 showed sinus rhythm. OBJECTIVE: A 20-year-old obese cooperative female in no acute distress. Height 60 inches, weight 105 kg, body mass index (BMI) 45.5, blood pressure 135/87, pulse 80, respirations 16, temperature 97.1. Patient is alert and oriented times three. Pupils equal and reactive to light. Extraocular movements (EOMs) intact. Corneae and sclerae are clear. Conjunctivae are normal. No facial asymmetry. Pharynx, tongue, and gums pink and moist. Tongue is midline. Neck is supple without lymphadenopathy. No thyromegaly. No goiter. Chest clear to auscultation without wheeze or retraction. Heart is regular. Abdomen benign. Bowel sounds positive. Genitourinary/rectal not done. Extremities showed equal strength. Full range of motion. No cyanosis, clubbing, or edema. Peripheral pulses equal and palpable bilaterally. Skin is warm and dry. IMPRESSION AND PLAN: 1. Psychiatric plan per psychiatry. 2. Hypothyroidism. Continue current dose of levothyroxine. 3. Xqe-yccyibp-eqcnloaxz diabetes mellitus (NIDDM). Fingerstick blood sugars twice a day. Consistent-carbohydrate diet. Continue metformin. Continue followup with primary care provider at [facility].
[2016-06-23] MEDS: metFORMIN XR 500MG TAB *GLUCOPHAGE XR PO SCH (20:05)
[2016-06-23] MEDS: cloZAPine 25 MG TAB (S0136) PO SCH (20:05)
[2016-06-24] MEDS: LEVOTHYROXINE 0.075 MG TAB (75 MCG) PO SCH (06:21)
[2016-06-24 06:24] VITALS: BP 142/96
[2016-06-24] MEDS: cloNIDine 0.1 MG TAB PO SCH ×3 (08:10→20:57)
[2016-06-24] MEDS: LITHIUM CARBONATE 450 MG **CR** TAB PO SCH ×2 (08:10→20:58)
[2016-06-24] MEDS: cloZAPine 100 MG TAB (S0136) PO SCH ×3 (08:10→20:58)
[2016-06-24] MEDS: MULTIVITAMINS/MINERALS THERAP 1 TAB PO SCH (08:10)
[2016-06-24] MEDS: SERTRALINE HCL 25 MG TABLET PO SCH (08:11)
[2016-06-24] MEDS: lamoTRIgine 100MG TAB PO SCH ×2 (08:11→20:57)
--- NOTE | 2016-06-24 09:27 | IPNPDOC ---
[facility] Progress Note Progress Note DATE OF SERVICE: 06/24/16 Evaluated 20-year-old female with history of paranoid schizophrenia who was admitted to the inpatient mental health unit after she was brought to the emergency room by [facility] in [place], after she had expressed suicidal ideation, was observed to be severely depressed and was aggressive to staff. The patient states she was very sad because she was not able to spend Easter with her mother. 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 CURRENT MEDICATIONS: See below. MENTAL STATUS EXAMINATION: Patient is a 20-year old female, who is depressed in hospital clothes, obese, cooperative with interview with poor eye contact. Speech: Is and normal. Language skills are fair. Thought processes including: Linear. Thought content: Negative for homicidal ideation, positive for command hallucinations that tell her to kill herself, positive for passive suicidal thoughts. Abstract reasoning, and computation: Poor Description of associations : No loosening of associations Description of abnormal or psychotic thoughts: hallucinations that tell her to kill herself. Judgment: Poor Insight: Poor. Orientation: Oriented to person and place but not to date. Recent and remote memory: Recent memory is good. She has trouble recalling events from her childhood Attention span and concentration: Poor. Language: Limited. Fund of knowledge: Poor. Mood: "I feel better. I just want to see my mother". Affect: Labile DIAGNOSES: 1. Schizophrenia paranoid type 2. Rule out intellectual disability. 3. History of ADHD. ASSESSMENT: Patient is to continue hospitalization for further stabilization. Try to contact her psychiatrist yesterday but at the time I called he was not available. MANAGEMENT PLAN: Once she stabilized at the inpatient mental health unit she will go to her half-way and continue her treatment (medication, psychotherapy) . A meeting with her mother has been planned. TIME SPENT: 15 minutes. Vital Signs Vital Signs Date Time Temp Pulse Resp B/P Pulse Ox O2 Delivery O2 Flow Rate FiO2 06/24/16 08:10 142/96 06/24/16 06:24 98.7 76 16 06/21/16 23:34 98 Current Medications Current Medications Acetaminophen (Tylenol Tab) 650 mg Q6HP PRN PO HEADACHE or DISCOMFORT Last administered on 06/22/16t 20:21; Start 4/17/17 at 23:00; Stop 07/21/16 at 22:59 Al Hydrox/Mg Hydrox/Simethicone (Mylanta) 30 ml Q4HP PRN PO HEARTBURN/ INDIGESTION; Start 06/21/16 at 23:00; Stop 07/21/16 at 22:59 Clonidine HCl (Catapres) 0.1 mg TID PO Last administered on 06/24/16 08:10; Start 06/21/16 at 21:00; Stop 07/21/16 at 20:59 Clozapine (Clozaril) 50 mg QHS PO Last administered on 06/23/16 20:05; Start 06/21/16 at 21:00; Stop 06/28/16 at 20:59 Clozapine (Clozaril) 100 mg BID@09,12 PO Last administered on 06/24/16 08:10; Start 06/22/16 at 09:00; Stop 06/29/16 at 08:59 Clozapine (Clozaril) 200 mg QHS PO Last administered on 06/23/16 20:06; Start 06/21/16 at 21:00; Stop 06/28/16 at 20:59 Home Med (Med Rec Complete!) ASDIRECTED XX ; Start 06/22/16 at 00:30; Stop at 00:30; Status DC Lamotrigine (LaMICtal) 100 mg BID PO Last administered on 06/24/16 08:11; Start 06/21/16 at 21:00; Stop 07/21/16 at 20:59 Levothyroxine Sodium (Synthroid) 0.075 mg DAILY@06 PO Last administered on 06/24 06:21; Start 06/22/16 at 06:00; Stop 07/22/16 at 05:59 [place] Carbonate (Eskalith-Cr) 450 mg BID PO Last administered on 06/24/16 08 :10; Start 06/21/16 at 21:00; Stop 07/21/16 at 20:59 [place] Carbonate ([place] Carbonate) 450 mg BID PO ; Start 06/22/16 at 09:00; Stop 06/22/16 at 09:00; Status DC Magnesium Hydroxide (Milk Of Magnesia) 30 ml DAILYPRN PRN PO CONSTIPATION; Start 06/21/16 at 23:00; Stop 07/21/16 at 22:59 Metformin HCl (Glucophage Xr) 1,000 mg QHS PO Last administered on 06/23/16 20 :05; Start 06/21/16 at 21:00; Stop 07/21/16 at 20:59 Multivitamins (Theragram-M) 1 tab DAILY PO Last administered on 06/24/16 08:10 ; Start 06/22/16 at 09:00; Stop 07/22/16 at 08:59 Sertraline HCl (Zoloft) 37.5 mg DAILY PO Last administered on 06/24/16 08:11; Start 06/22/16 at 09:00; Stop 07/22/16 at 08:59 Trazodone HCl (Desyrel) 50 mg QHSP PRN PO INSOMNIA Last administered on 20:21; Start 06/21/16 at 23:00; Stop 07/21/16 at 22:59 Allergies Coded Allergies: Lactose (Unverified Allergy, Unknown, 03/29/16) JAYNE GUZMAN MD Jun 24, 2016 09:27
[2016-06-24 18:00] VITALS: BP 140/96
[2016-06-24] MEDS: cloZAPine 25 MG TAB (S0136) PO SCH (20:55)
[2016-06-24] MEDS: metFORMIN XR 500MG TAB *GLUCOPHAGE XR PO SCH (20:58)
[2016-06-25 06:00] VITALS: BP 139/70
[2016-06-25] MEDS: LEVOTHYROXINE 0.075 MG TAB (75 MCG) PO SCH (06:14)
[2016-06-25] MEDS: MULTIVITAMINS/MINERALS THERAP 1 TAB PO SCH (08:24)
[2016-06-25] MEDS: LITHIUM CARBONATE 450 MG **CR** TAB PO SCH ×2 (08:25→21:13)
[2016-06-25] MEDS: cloZAPine 100 MG TAB (S0136) PO SCH ×3 (08:25→21:14)
[2016-06-25] MEDS: cloNIDine 0.1 MG TAB PO SCH ×3 (08:25→21:13)
[2016-06-25] MEDS: lamoTRIgine 100MG TAB PO SCH ×2 (08:25→21:13)
[2016-06-25] MEDS: SERTRALINE HCL 25 MG TABLET PO SCH (08:25)
--- NOTE | 2016-06-25 15:11 | IPNPDOC ---
[facility] Progress Note Progress Note DATE OF SERVICE: 06/25/16 HISTORY: 20-year-old female with history of schizophrenia, who has been treated with multiple antipsychotics throughout the years. She was admitted because she verbalized having suicidal ideations and command hallucinations that were telling her to kill herself. It is believed that she decompensated because she was unable to to visit her mother for Easter. She was diagnosed as having ADHD when she was 9 years old, and after speaking with her psychiatrist Dr. Eric Mcleod, reportedly she was hospitalized for the first time when she was 12 years old. She has been on Clozaril since 2011 and he said that she was she was on a higher dose, 450 mg and they have been able to have her controlled with 350 mgs. VITAL SIGNS: See below. NEW TEST RESULTS: None. Aldrich levels were ordered today. CURRENT MEDICATIONS: See below. MENTAL STATUS EXAMINATION: Patient is a 20-year old female, who is laying in bed, in the restraining room, with poor eye contact. Speech: Is and normal. Language skills are fair. Thought processes including: Linear. Thought content: Paranoid, delusional thoughts. Positive for auditory hallucinations , although she hasn't had them this morning or last night . Negative for obsessions , compulsions , phobias . Abstract reasoning, and computation: Poor Description of associations: No loosening of associations. Description of abnormal or psychotic thoughts: Auditory hallucinations and paranoid delusions. Judgment: Poor. Insight: Poor. Orientation: Oriented 3. Recent and remote memory: Recent memory is fair but she can't recall in detail past events Attention span and concentration: Poor. Language: Poverty of language. Fund of knowledge: Fair. Mood: Depressed. Affect: Irritable. DIAGNOSES: 1. Schizophrenia, paranoid type 2. Adjustment disorder with depressed mood 3. Borderline personality disorder 4. Rule out Mild intellectual disability ASSESSMENT: Mateo needs further treatment at the inpatient mental health unit for stabilization. Her medications won't be changed because her psychiatrist is complained that she has been on Clozaril since 2011. MANAGEMENT PLAN: Will continue on the same medications. On her lithium levels and will continue on close observation for possible outbursts. TIME SPENT: 15 minutes. Vital Signs Vital Signs Date Time Temp Pulse Resp B/P Pulse Ox O2 Delivery O2 Flow Rate FiO2 06/25/16 08:25 139/70 06/25/16 06:00 97.3 76 18 06/21/16 23:34 98 Current Medications Current Medications Acetaminophen (Tylenol Tab) 650 mg Q6HP PRN PO HEADACHE or DISCOMFORT Last administered on 06/22/16 20:21; Start 06/21/16 at 23:00; Stop 07/21/16 at 22:59 Al Hydrox/Mg Hydrox/Simethicone (Mylanta) 30 ml Q4HP PRN PO HEARTBURN/ INDIGESTION; Start 06/21/16 at 23:00; Stop 07/21/16 at 22:59 Clonidine HCl (Catapres) 0.1 mg TID PO Last administered on 06/25/16 08:25; Start 06/21/16 at 21:00; Stop 07/21/16 at 20:59 Clozapine (Clozaril) 50 mg QHS PO Last administered on 06/24/16 20:55; Start 06/21/16 at 21:00; Stop 06/28/16 at 20:59 Clozapine (Clozaril) 100 mg BID@09,12 PO Last administered on 06/25/16 11:39; Start 06/22/16 at 09:00; Stop 06/29/16 at 08:59 Clozapine (Clozaril) 200 mg QHS PO Last administered on 06/24/16 20:58; Start 06/21/16 at 21:00; Stop 06/28/16 at 20:59 Home Med (Med Rec Complete!) ASDIRECTED XX ; Start 06/22/16 at 00:30; Stop at 00:30; Status DC Lamotrigine (LaMICtal) 100 mg BID PO Last administered on 06/25/16 08:25; Start 06/21/16 at 21:00; Stop 07/21/16 at 20:59 Levothyroxine Sodium (Synthroid) 0.075 mg DAILY@06 PO Last administered on 06/25 06:14; Start 06/22/16 at 06:00; Stop 07/22/16 at 05:59 [place] Carbonate (Eskalith-Cr) 450 mg BID PO Last administered on 06/25/16 08 :25; Start 06/21/16 at 21:00; Stop 07/21/16 at 20:59 [place] Carbonate (Aldrich Carbonate) 450 mg BID PO ; Start 06/22/16 at 09:00; Stop 06/22/16 at 09:00; Status DC Magnesium Hydroxide (Milk Of Magnesia) 30 ml DAILYPRN PRN PO CONSTIPATION; Start 06/21/16 at 23:00; Stop 07/21/16 at 22:59 Metformin HCl (Glucophage Xr) 1,000 mg QHS PO Last administered on 06/24/16 20 :58; Start 06/21/16 at 21:00; Stop 07/21/16 at 20:59 Multivitamins (Theragram-M) 1 tab DAILY PO Last administered on 06/25/16 08:24 ; Start 06/22/16 at 09:00; Stop 07/22/16 at 08:59 Sertraline HCl (Zoloft) 37.5 mg DAILY PO Last administered on 06/25/16 08:25; Start 06/22/16 at 09:00; Stop 07/22/16 at 08:59 Trazodone HCl (Desyrel) 50 mg QHSP PRN PO INSOMNIA Last administered on 20:21; Start 06/21/16 at 23:00; Stop 07/21/16 at 22:59 Allergies Coded Allergies: Lactose (Unverified Allergy, Unknown, 03/29/16) JAYNE GUZMAN MD Jun 25, 2016 15:11
[2016-06-25 18:00] VITALS: BP 143/86
[2016-06-25] MEDS: cloZAPine 25 MG TAB (S0136) PO SCH (21:13)
[2016-06-25] MEDS: metFORMIN XR 500MG TAB *GLUCOPHAGE XR PO SCH (21:13)
[2016-06-26] MEDS: LEVOTHYROXINE 0.075 MG TAB (75 MCG) PO SCH (06:12)
[2016-06-26 06:16] VITALS: BP 130/87
[2016-06-26] MEDS: cloNIDine 0.1 MG TAB PO SCH ×3 (08:16→21:00)
[2016-06-26] MEDS: cloZAPine 100 MG TAB (S0136) PO SCH ×3 (08:17→21:00)
[2016-06-26] MEDS: lamoTRIgine 100MG TAB PO SCH ×2 (08:17→21:00)
[2016-06-26] MEDS: MULTIVITAMINS/MINERALS THERAP 1 TAB PO SCH (08:17)
[2016-06-26] MEDS: SERTRALINE HCL 25 MG TABLET PO SCH (08:17)
[2016-06-26] MEDS: LITHIUM CARBONATE 450 MG **CR** TAB PO SCH ×2 (08:18→21:00)
[2016-06-26] MEDS: ACETAMINOPHEN TAB 650MG DOSE (2X325MG) PO PRN (16:57)
[2016-06-26 18:00] VITALS: BP 125/84
--- NOTE | 2016-06-26 19:23 | IPNPDOC ---
[facility] Progress Note Progress Note DATE OF SERVICE: 06/26/16 evaluated 20 year old female with history of schizophrenia, currently stable on her medications. She was admitted on the after she was brought to the ER by the [facility] staff and reported that she was agitated and had suicidal thoughts. She was decompensated because she was missing her mother, with whom she didn't meet for [facility]. Two nights ago, she had to be transferred to the restraining room because she got into an argument with her roommate. Yesterday, this author spoke with her psychiatrist and he stated that she has been on clozaril since 2011, and she has been stabilized with that medication, and when he got to know her, she was on 450 mgs. of this medication and they were able to lower the dose to 350 mgs. PO QD. Today she was observed calmed, cooperative, with good eye contact. She didn't report suicidal or homicidal thoughts. Denied recent auditory and visual hallucinations. She was alert, oriented to place, persona and time. Dressed in hospital clothes, with good rapport, calmed. No agitation or aggressiveness was observed. She still responds to internal stimuli and at times it seems as if she is internally preoccupied, but she denied having AH. She needs to continue on her medication and attending groups to be stabilized and then D/C'd to [facility]. DIAGNOSES: 1. Schizophrenia. 2. Adjustment disorder with depressed mood. 3. R/O Borderline PD. ASSESSMENT:She is stable at this moment. Will continue observing and treating her and further arrangements will be done in order for her to continue with her Ot at [facility]. MANAGEMENT PLAN: Continue with current medications TIME SPENT: 15 minutes. Vital Signs Vital Signs Date Time Temp Pulse Resp B/P Pulse Ox O2 Delivery O2 Flow Rate FiO2 06/26/16 15:32 129/75 06/26/16 06:16 99.1 75 18 06/21/16 23:34 98 Current Medications Current Medications Acetaminophen (Tylenol Tab) 650 mg Q6HP PRN PO HEADACHE or DISCOMFORT Last administered on 06/26/16t 16:57; Start 06/21/16 at 23:00; Stop 07/21/16 at 22:59 Al Hydrox/Mg Hydrox/Simethicone (Mylanta) 30 ml Q4HP PRN PO HEARTBURN/ INDIGESTION; Start 06/21/16 at 23:00; Stop 07/21/16 at 22:59 Clonidine HCl (Catapres) 0.1 mg TID PO Last administered on 06/26/16 15:32; Start 06/21/16 at 21:00; Stop 07/21/16 at 20:59 Clozapine (Clozaril) 50 mg QHS PO Last administered on 06/25/16 21:13; Start 06/21/16 at 21:00; Stop 06/28/16 at 20:59 Clozapine (Clozaril) 100 mg BID@09,12 PO Last administered on 06/26/16 11:34; Start 06/22/16 at 09:00; Stop 06/29/16 at 08:59 Clozapine (Clozaril) 200 mg QHS PO Last administered on 06/25/16 21:14; Start 06/21/16 at 21:00; Stop 06/28/16 at 20:59 Home Med (Med Rec Complete!) ASDIRECTED XX ; Start 06/22/16 at 00:30; Stop at 00:30; Status DC Lamotrigine (LaMICtal) 100 mg BID PO Last administered on 06/26/16 08:17; Start 06/21/16 at 21:00; Stop 07/21/16 at 20:59 Levothyroxine Sodium (Synthroid) 0.075 mg DAILY@06 PO Last administered on 06/26 06:12; Start 06/22/16 at 06:00; Stop 07/22/16 at 05:59 S[place]er Carbonate (Eskalith-Cr) 450 mg BID PO Last administered on 06/26/16 08 :18; Start 06/21/16 at 21:00; Stop 07/21/16 at 20:59 Sesser Carbonate (Sesser Carbonate) 450 mg BID PO ; Start 06/22/16 at 09:00; Stop 06/22/16 at 09:00; Status DC Magnesium Hydroxide (Milk Of Magnesia) 30 ml DAILYPRN PRN PO CONSTIPATION; Start 06/21/16 at 23:00; Stop 07/21/16 at 22:59 Metformin HCl (Glucophage Xr) 1,000 mg QHS PO Last administered on 06/25/16 21 :13; Start 06/21/16 at 21:00; Stop 07/21/16 at 20:59 Multivitamins (Theragram-M) 1 tab DAILY PO Last administered on 06/26/16 08:17 ; Start 06/22/16 at 09:00; Stop 07/22/16 at 08:59 Sertraline HCl (Zoloft) 37.5 mg DAILY PO Last administered on 06/26/16 08:17; Start 06/22/16 at 09:00; Stop 07/22/16 at 08:59 Trazodone HCl (Desyrel) 50 mg QHSP PRN PO INSOMNIA Last administered on 20:21; Start 06/21/16 at 23:00; Stop 07/21/16 at 22:59 Allergies Coded Allergies: Lactose (Unverified Allergy, Unknown, 03/29/16) JAYNE GUZMAN MD Jun 26, 2016 19:23
[2016-06-26] MEDS: cloZAPine 25 MG TAB (S0136) PO SCH (21:00)
[2016-06-26] MEDS: metFORMIN XR 500MG TAB *GLUCOPHAGE XR PO SCH (21:00)
[2016-06-26] MEDS ORDERED: HALOPERIDOL 5 MG/ML VIAL (J1630) IM STA (22:30)
[2016-06-26] MEDS ORDERED: diphenhydrAMINE INJ 50MG/ML VIAL (J1200) IM STA (22:30)
[2016-06-26] MEDS ORDERED: LORazepam 2 MG/ML VIAL (J2060) IM STA (22:30)
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
[2016-06-27] VITALS (8 sets, daily range): BP systolic 125–148; BP diastolic 73–95
[2016-06-27] MEDS: LEVOTHYROXINE 0.075 MG TAB (75 MCG) PO SCH (06:00)
[2016-06-27] MEDS: MULTIVITAMINS/MINERALS THERAP 1 TAB PO SCH (09:16)
[2016-06-27] MEDS: LITHIUM CARBONATE 450 MG **CR** TAB PO SCH (09:16)
[2016-06-27] MEDS: lamoTRIgine 100MG TAB PO SCH ×2 (09:16→23:24)
[2016-06-27] MEDS: cloZAPine 100 MG TAB (S0136) PO SCH ×3 (09:17→23:24)
[2016-06-27] MEDS: SERTRALINE HCL 25 MG TABLET PO SCH (09:17)
[2016-06-27] MEDS: cloNIDine 0.1 MG TAB PO SCH ×3 (09:18→23:25)
[2016-06-27] MEDS ORDERED: LORazepam 2 MG/ML VIAL (J2060) IM PRN (10:15)
[2016-06-27] MEDS ORDERED: HALOPERIDOL 5 MG/ML VIAL (J1630) IM STA ×2 (12:32→21:32)
[2016-06-27] MEDS ORDERED: LORazepam 2 MG/ML VIAL (J2060) IM STA ×2 (12:32→21:32)
[2016-06-27] MEDS ORDERED: diphenhydrAMINE INJ 50MG/ML VIAL (J1200) IM STA ×2 (12:32→21:32)
[2016-06-27 13:27] LABS: CONTROL LINE INT CTR LINE PRESENT; HIV SCRN NEGATIVE (NEGATIVE); HIV SCRN1 NEGATIVE (NEGATIVE)
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
[2016-06-27] MEDS: metFORMIN XR 500MG TAB *GLUCOPHAGE XR PO SCH (23:21)
[2016-06-27] MEDS: cloZAPine 25 MG TAB (S0136) PO SCH (23:24)
[2016-06-28] MEDS: LEVOTHYROXINE 0.075 MG TAB (75 MCG) PO SCH (06:10)
[2016-06-28 06:46] VITALS: BP 133/88
[2016-06-28] MEDS: cloZAPine 100 MG TAB (S0136) PO SCH ×3 (09:58→21:00)
[2016-06-28] MEDS: SERTRALINE HCL 25 MG TABLET PO SCH (09:58)
[2016-06-28] MEDS: lamoTRIgine 100MG TAB PO SCH ×2 (09:58→21:00)
[2016-06-28] MEDS: MULTIVITAMINS/MINERALS THERAP 1 TAB PO SCH (09:58)
[2016-06-28] MEDS: LITHIUM CARBONATE 300 MG **CR** TAB PO SCH ×2 (10:00→21:00)
[2016-06-28] MEDS: cloNIDine 0.1 MG TAB PO SCH ×3 (10:05→21:00)
[2016-06-28 11:24] LABS: HEP C VIRUS AB INDEX SOURCE PT 0.1 INDEX (0.0-0.8)
--- NOTE | 2016-06-28 15:21 | IPNPDOC ---
[facility] Progress Note Progress Note DATE OF SERVICE: 06/28/16 HISTORY: 20-year-old female with history of schizophrenia, borderline personality and intellectual disability who was transferred from [facility] for aggressiveness, suicidal ideation and command hallucinations that were telling her to kill herself. She has been aggressive, violent and explosive for the last 2 days. She has received Haldol IM, Ativan IM and Benadryl IM on different occasions when she was coded over the weekend. She also had to be 4 restrained. Today, she has been calmer, she hasn't had any outbursts but she is angry and she is not willing to talk to the author of this document. VITAL SIGNS: See below. NEW TEST RESULTS: Clozaril levels, lithium levels and Lamictal levels will be ordered. CURRENT MEDICATIONS: See below. MENTAL STATUS EXAMINATION: Patient is a 20-year old female, who is alert, lying in bed, suspicious, guarded with no eye contact, laying in bed Speech: Not tangential and not circumstantial. Very loud. Language skills are poor. Thought processes including: Irrational. Thought content: Positive for paranoid delusional thoughts. Responds to internal stimuli. Abstract reasoning, and computation: Poor. Description of associations: No loosening of associations Description of abnormal or psychotic thoughts: . Judgment: Very poor. Insight: Very poor. Orientation: Oriented to place and person but not to date and time. Recent and remote memory: Recent memory is intact but remote memory is impaired. Attention span and concentration: Poor. Language: Poverty of language. Fund of knowledge: Poor. Mood: Irritable. Affect: Irritable. DIAGNOSES: 1. Schizophrenia. 2. Borderline personality disorder. 3. Intellectual disability. ASSESSMENT: Patient has decline during the last 2 days, most likely due to separation from her mother. Patient is borderline and is not able to handle separations; mother came to visit on Tuesday and patient decompensated after mother left. She is on very high-dose of Clozaril, lithium and Lamictal, and increasing this dose will be extremely risky for for her and will jeopardize her physical health. [place] has been increased to 600 mg by mouth twice a day and hopefully she will be willing to take her medications today. She had refused it last night but eventually she was compliant and took them. She will need long-term hospitalization in another facility. MANAGEMENT PLAN: If if she is accepted, she will be transferred to [facility] for long-term treatment. Today, levels of Clozaril, lithium and Lamictal will be ordered. TIME SPENT: 15 minutes. Vital Signs Vital Signs Date Time Temp Pulse Resp B/P Pulse Ox O2 Delivery O2 Flow Rate FiO2 06/28/16 10:05 153/91 06/28/16 06:46 97.8 88 18 06/27/16 23:30 97 Room Air Laboratory Data 24H Labs Laboratory Tests 2 06/27/16 22:46: Bedside Glucose (Misc Panel) 86 06/28/16 06:14: Bedside Glucose (Misc Panel) 76 Current Medications Current Medications Acetaminophen (Tylenol Tab) 650 mg Q6HP PRN PO HEADACHE or DISCOMFORT Last administered on 06/26/16 16:57; Start 06/21/16 at 23:00; Stop 07/21/16 at 22:59 Al Hydrox/Mg Hydrox/Simethicone (Mylanta) 30 ml Q4HP PRN PO HEARTBURN/ INDIGESTION; Start 06/21/16 at 23:00; Stop 07/21/16 at 22:59 Clonidine HCl (Catapres) 0.1 mg TID PO Last administered on 06/28/16 10:05; Start 06/21/16 at 21:00; Stop 07/21/16 at 20:59 Clozapine (Clozaril) 50 mg QHS PO Last administered on 06/27/16 23:24; Start 06/21/16 at 21:00; Stop 07/04/16 at 20:59 Clozapine (Clozaril) 100 mg BID@09,12 PO Last administered on 06/28/16 12:50; Start 06/22/16 at 09:00; Stop 06/29/16 at 08:59 Clozapine (Clozaril) 200 mg QHS PO Last administered on 06/27/16 23:24; Start 06/21/16 at 21:00; Stop 07/04/16 at 20:59 Haloperidol (Haldol) 10 mg BID PRN PO AGITATION; Start 06/27/16 at 13:00; Stop 07/27/16 at 12:59 Home Med (Med Rec Complete!) ASDIRECTED XX ; Start 06/22/16 at 00:30; Stop at 00:30; Status DC Lamotrigine (LaMICtal) 100 mg BID PO Last administered on 06/28/16 09:58; Start 06/21/16 at 21:00; Stop 07/21/16 at 20:59 Levothyroxine Sodium (Synthroid) 0.075 mg DAILY@06 PO Last administered on 06/28 06:10; Start 06/22/16 at 06:00; Stop 07/22/16 at 05:59 [place] Carbonate (Eskalith-Cr) 450 mg BID PO Last administered on 06/27/16 09 :16; Start 06/21/16 at 21:00; Stop 06/27/16 at 22:37; Status DC [place] Carbonate ([place] Carbonate) 450 mg BID PO ; Start 06/22/16 at 09:00; Stop 06/22/16 at 09:00; Status DC [place] Carbonate ([place] Cr) 600 mg BID PO Last administered on 06/28/16 10 :00; Start 06/28/16 at 09:00; Stop 07/28/16 at 08:59 Lorazepam (Ativan) 2 mg Q6HP PRN IM AGITATION; Start 06/27/16 at 10:15; Stop at 10:14 Lorazepam (Ativan) 2 mg Q6HP PRN PO ANXIETY/AGITATION; Start 06/27/16 at 13:00 ; Stop 07/04/16 at 12:59 Magnesium Hydroxide (Milk Of Magnesia) 30 ml DAILYPRN PRN PO CONSTIPATION; Start 06/21/16 at 23:00; Stop 07/21/16 at 22:59 Metformin HCl (Glucophage Xr) 1,000 mg QHS PO Last administered on 06/27/16 23 :21; Start 06/21/16 at 21:00; Stop 07/21/16 at 20:59 Multivitamins (Theragram-M) 1 tab DAILY PO Last administered on 06/28/16 09:58 ; Start 06/22/16 at 09:00; Stop 07/22/16 at 08:59 Sertraline HCl (Zoloft) 37.5 mg DAILY PO Last administered on 06/28/16 09:58; Start 06/22/16 at 09:00; Stop 07/22/16 at 08:59 Trazodone HCl (Desyrel) 50 mg QHSP PRN PO INSOMNIA Last administered on t 20:21; Start 06/21/16 at 23:00; Stop 07/21/16 at 22:59 Allergies Coded Allergies: Lactose (Unverified Allergy, Unknown, 03/29/16) JAYNE GUZMAN MD Jun 28, 2016 15:20
[2016-06-28 18:00] VITALS: BP 136/88
[2016-06-28] MEDS: metFORMIN XR 500MG TAB *GLUCOPHAGE XR PO SCH (21:01)
[2016-06-28] MEDS: cloZAPine 25 MG TAB (S0136) PO SCH (21:01)
[2016-06-29] VITALS (7 sets, daily range): BP systolic 124–160; BP diastolic 58–90
[2016-06-29] MEDS: LEVOTHYROXINE 0.075 MG TAB (75 MCG) PO SCH (06:20)
[2016-06-29] MEDS: MULTIVITAMINS/MINERALS THERAP 1 TAB PO SCH (08:15)
[2016-06-29] MEDS: LITHIUM CARBONATE 300 MG **CR** TAB PO SCH ×2 (08:15→21:55)
[2016-06-29] MEDS: cloNIDine 0.1 MG TAB PO SCH ×3 (08:15→21:58)
[2016-06-29] MEDS: cloZAPine 100 MG TAB (S0136) PO SCH ×3 (08:15→21:55)
[2016-06-29] MEDS: lamoTRIgine 100MG TAB PO SCH ×2 (08:15→21:54)
[2016-06-29] MEDS: SERTRALINE HCL 25 MG TABLET PO SCH (08:16)
--- NOTE | 2016-06-29 09:32 | IPNPDOC ---
[facility] Progress Note Progress Note DATE OF SERVICE: 06/29/16 HISTORY: 20-year-old female with history of schizophrenia, borderline personality disorder and intellectual disability who is currently treated with Clozaril, lithium, Lamictal among other psychiatric medications. She was referred to [facility] emergency room by TLS because she has been having angry outbursts, has been aggressive to staff, had verbalized suicidal ideation and command hallucinations that were telling her to kill herself. She has a long- standing psychiatric history, her first psychiatric hospitalization was between ages 10 and 11, has being institutionalized since an early age. Has problems detaching from mother and she became aggressive and Tuesday evening when she received her mother's visit and approximately an hour after mother left, she started showing angry, aggressive and violent behavior. This same pattern repeated on Tuesday morning and Tuesday night. Yesterday [place] levels, Clozaril levels and Lamictal levels where ordered. [place] levels are 0.69 and on the they were at 0.89. The change is due to noncompliance with medications because she refused to take them Tuesday night. Her lithium was increased to 600 mg by mouth twice a day, the patient wanted her medications to be changed, but she was told that it was hard to decrease the dose of her medications, because she has been on them for a long time and it seemed she was was doing well on them according to her mother and her psychiatrist. When she was asked if we could do something else for her, she said "no, you all are doing what you' re supposed to do, but when I become like this there is nothing that can help me. This is the way that I am when I'm angry." Patient is currently sleeping will re assess later. VITAL SIGNS: See below. NEW TEST RESULTS: . CURRENT MEDICATIONS: See below. MENTAL STATUS EXAMINATION: Patient is a -year old female, who is . Speech: Is . Language skills are . Thought processes including: . Thought content: . Abstract reasoning, and computation: . Description of associations: . Description of abnormal or psychotic thoughts: . Judgment: . Insight: [very limited, good, fair. poor]. Orientation: . Recent and remote memory: . Attention span and concentration: . Language: . Fund of knowledge: . Mood: . Affect: . DIAGNOSES: 1. . 2. . 3. . ASSESSMENT: MANAGEMENT PLAN: . TIME SPENT: minutes. Vital Signs Vital Signs Date Time Temp Pulse Resp B/P Pulse Ox O2 Delivery O2 Flow Rate FiO2 06/29/16 08:15 124/58 06/29/16 06:31 99.2 80 18 06/27/16 23:30 97 Room Air Laboratory Data 24H Labs Laboratory Tests 2 06/28/16 16:37: [place] Level 0.69 06/28/16 16:38: Bedside Glucose (Misc Panel) 105 06/29/16 06:15: Bedside Glucose (Misc Panel) 89 Current Medications Current Medications Acetaminophen (Tylenol Tab) 650 mg Q6HP PRN PO HEADACHE or DISCOMFORT Last administered on 06/26/16 16:57; Start 06/21/16 at 23:00; Stop 07/21/16 at 22:59 Al Hydrox/Mg Hydrox/Simethicone (Mylanta) 30 ml Q4HP PRN PO HEARTBURN/ INDIGESTION; Start 06/21/16 at 23:00; Stop 07/21/16 at 22:59 Clonidine HCl (Catapres) 0.1 mg TID PO Last administered on 06/29/16 08:15; Start 06/21/16 at 21:00; Stop 07/21/16 at 20:59 Clozapine (Clozaril) 50 mg QHS PO Last administered on 06/28/16 21:01; Start 06/21/16 at 21:00; Stop 07/04/16 at 20:59 Clozapine (Clozaril) 100 mg BID@09,12 PO Last administered on 06/29/16 08:15; Start 06/22/16 at 09:00; Stop 07/05/16 at 08:59 Clozapine (Clozaril) 200 mg QHS PO Last administered on 06/28/16 21:00; Start 06/21/16 at 21:00; Stop 07/04/16 at 20:59 Haloperidol (Haldol) 10 mg BID PRN PO AGITATION; Start 06/27/16 at 13:00; Stop 07/27/16 at 12:59 Home Med (Med Rec Complete!) ASDIRECTED XX ; Start 06/22/16 at 00:30; Stop at 00:30; Status DC Lamotrigine (LaMICtal) 100 mg BID PO Last administered on 06/29/16 08:15; Start 06/21/16 at 21:00; Stop 07/21/16 at 20:59 Levothyroxine Sodium (Synthroid) 0.075 mg DAILY@06 PO Last administered on 06/29 06:20; Start 06/22/16 at 06:00; Stop 07/22/16 at 05:59 [place] Carbonate (Eskalith-Cr) 450 mg BID PO Last administered on 06/27/16 09 :16; Start 06/21/16 at 21:00; Stop 06/27/16 at 22:37; Status DC [place] Carbonate ([place] Carbonate) 450 mg BID PO ; Start 06/22/16 at 09:00; Stop 06/22/16 at 09:00; Status DC [place] Carbonate (Lithobid Cr) 600 mg BID PO Last administered on 06/29/16 08 :15; Start 06/28/16 at 09:00; Stop 07/28/16 at 08:59 Lorazepam (Ativan) 2 mg Q6HP PRN IM AGITATION; Start 06/27/16 at 10:15; Stop at 10:14 Lorazepam (Ativan) 2 mg Q6HP PRN PO ANXIETY/AGITATION; Start 06/27/16 at 13:00 ; Stop 07/04/16 at 12:59 Magnesium Hydroxide (Milk Of Magnesia) 30 ml DAILYPRN PRN PO CONSTIPATION; Start 06/21/16 at 23:00; Stop 07/21/16 at 22:59 Metformin HCl (Glucophage Xr) 1,000 mg QHS PO Last administered on 06/28/16 21 :01; Start 06/21/16 at 21:00; Stop 07/21/16 at 20:59 Multivitamins (Theragram-M) 1 tab DAILY PO Last administered on 06/29/16 08:15 ; Start 06/22/16 at 09:00; Stop 07/22/16 at 08:59 Sertraline HCl (Zoloft) 37.5 mg DAILY PO Last administered on 06/29/16 08:16; Start 06/22/16 at 09:00; Stop 07/22/16 at 08:59 Trazodone HCl (Desyrel) 50 mg QHSP PRN PO INSOMNIA Last administered on 20:21; Start 06/21/16 at 23:00; Stop 07/21/16 at 22:59 Allergies Coded Allergies: Lactose (Unverified Allergy, Unknown, 03/29/16) JAYNE GUZMAN MD Jun 29, 2016 09:32
[2016-06-29] MEDS ORDERED: LORazepam 2 MG/ML VIAL (J2060) IM STA (20:10)
[2016-06-29] MEDS ORDERED: HALOPERIDOL 5 MG/ML VIAL (J1630) As Ordered ONE (20:10)
[2016-06-29] MEDS ORDERED: HALOPERIDOL 5 MG/ML VIAL (J1630) IM STA (20:10)
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
[2016-06-29] MEDS: metFORMIN XR 500MG TAB *GLUCOPHAGE XR PO SCH (21:53)
[2016-06-29] MEDS: cloZAPine 25 MG TAB (S0136) PO SCH (21:53)
[2016-06-29] MEDS: traZODone 50 MG TAB PO PRN (21:54)
[2016-06-30] MEDS: LEVOTHYROXINE 0.075 MG TAB (75 MCG) PO SCH (06:43)
[2016-06-30] MEDS: cloZAPine 100 MG TAB (S0136) PO SCH ×3 (09:36→21:45)
[2016-06-30] MEDS: SERTRALINE HCL 25 MG TABLET PO SCH (09:36)
[2016-06-30] MEDS: MULTIVITAMINS/MINERALS THERAP 1 TAB PO SCH (09:36)
[2016-06-30] MEDS: lamoTRIgine 100MG TAB PO SCH ×2 (09:37→21:46)
[2016-06-30] MEDS: LITHIUM CARBONATE 300 MG **CR** TAB PO SCH ×2 (09:37→21:46)
[2016-06-30] MEDS: cloNIDine 0.1 MG TAB PO SCH ×3 (09:42→21:46)
--- NOTE | 2016-06-30 17:12 | IPNPDOC ---
[facility] Progress Note Progress Note DATE OF SERVICE: 06/30/16 INTERVAL HISTORY: Medication Side effects:no side effects reported by patient Behavior: She has been calmer, she hasn't had any violent outbursts. Group Attendance:Has attended some groups Psychiatric Symptom change: She is less angry and aggressive today, was seen with peers and [place] [facility] [place] and even when she was not willing to speak , she was not aggressive, nor violent and that is an advance compared to previous days. VITAL SIGNS: See below. NEW TEST RESULTS: See below CURRENT MEDICATIONS: See below. MENTAL STATUS EXAMINATION: General: Alert, with fair eye contact, dressed in hospital clothes, not willing to talk, not aggressive. Speech: Not able to assess. She didnt want to talk Thought processes: Unable to assess. She didnt want to talk to me. Thought content: Unable to assess, because she didnt want to talk to me but she was not seen responding to internal stimuli. Abstract reasoning, and computation: Unable to assess today but she has difficulty with abstract reasoning and computation. Description of associations:Not able to assess today but when she has communicated, she hasnt displayed loosening of associations. Description of abnormal or psychotic thoughts: She was not seen responding to internal stimuli but Im not able to say she was not experiencing auditory hallucinations, as she has stated before, because she wouldnt respond to me. Judgment: Poor Insight: Poor Orientation: Unable to assess today but she has been oriented to place and persona but not to date or time, previously. Recent and remote memory: Unable to assess. Attention span and concentration: Unable to assess today but her attention span and concentration are poor. Fund of knowledge: Not assessed today but it has been poor. Mood: Calmer than previous days. She is not as anxious as she has been before, but she looks sad Affect: Sad DIAGNOSES: 1. Schizophrenia. 2. Borderline Personality Disorder. 3. Intellectual Disability. ASSESSMENT:Patients behavioral decompensation are more compatible with her borderline personality disorder. [facility] staff had reported that when she from her mother, she would have this outbursts and become aggressive. This is exactly what happened on Tuesday night, after she from her mother. Medications have not been changed because she has been on Clozaril for several years and it seems that it has been the antipsychotic that has been able to help her. If at this moment, with this crisis, she is tapered from Clozaril or it is discontinued, she will decompensate even more. It is not desirable to give her more Clozaril. Will try to start her on an atypical antipsychotic while Clozaril is slowly tapered. MANAGEMENT PLAN: Medications:Clozaril 35o mgs. PO QD; Sylvia 600 mgs. PO BID, Lamictal 100 mgs. PO BID, Ativan 2mgs. po prn for anxiety, agitation and trazodone 50 mgs. po qhs Psychotherapy:Will provide supportive psychotherapy and will try to motivate her to attend groups. Social: She will have to have less visits from mother. Misc: Will speak again with her previous psychiatrist to obtain information about previous medication response. Dis[facility]: [facility] until she can be transfered to [place]. TIME SPENT: 15 minutes. MANAGEMENT PLAN: . TIME SPENT: minutes. Vital Signs Vital Signs Date Time Temp Pulse Resp B/P (MAP) Pulse Ox O2 Delivery O2 Flow Rate FiO2 06/30/16 15:38 138/82 06/29/16 21:15 97 18 06/29/16 21:05 97.8 Room Air 06/29/16 08:20 96 Laboratory Data 24H Labs Laboratory Tests 2 06/29/16 17:06: Bedside Glucose ([facility] [place] Panel) 89 Current Medications Current Medications Acetaminophen (Tylenol Tab) 650 mg Q6HP PRN PO HEADACHE or DISCOMFORT Last administered on 06/26/16 16:57; Start 06/21/16 at 23:00; Stop 07/21/16 at 22:59 Al Hydrox/Mg Hydrox/Simethicone (Mylanta) 30 ml Q4HP PRN PO HEARTBURN/ INDIGESTION; Start 06/21/16 at 23:00; Stop 07/21/16 at 22:59 Clonidine HCl (Catapres) 0.1 mg TID PO Last administered on 06/30/16 15:38; Start 06/21/16 at 21:00; Stop 07/21/16 at 20:59 Clozapine (Clozaril) 50 mg QHS PO Last administered on 06/29/16 21:53; Start 06/21/16 at 21:00; Stop 06/30/16 at 13:55; Status DC Clozapine (Clozaril) 100 mg BID@,12 PO Last administered on 06/30/16 12:21; Start 06/22/16 at 09:00; Stop 07/05/16 at 08:59 Clozapine (Clozaril) 200 mg QHS PO Last administered on 06/29/16 21:55; Start 06/21/16 at 21:00; Stop 06/30/16 at 13:55; Status DC Clozapine (Clozaril) 250 mg QHS PO ; Start 06/30/16 at 21:00; Stop 07/07/16 at 20 :59 Diphenhydramine HCl (Benadryl) 50 mg STAT STAT IM Last administered on 22:47; Start 06/26/16 at 22:30; Stop 06/26/16 at 22:33; Status DC Diphenhydramine HCl (Benadryl) 50 mg STAT STAT IM Last administered on 21:32; Start 06/27/16 at 21:32; Stop 06/27/16 at 21:35; Status DC Diphenhydramine HCl (Benadryl) 100 mg STAT STAT IM Last administered on 12:40; Start 06/27/16 at 12:32; Stop 06/27/16 at 12:35; Status DC Haloperidol (Haldol) 10 mg BID PRN PO AGITATION; Start 06/27/16 at 13:00; Stop 07/27/16 at 12:59 Haloperidol (Haldol) 10 mg STAT STAT IM Last administered on 06/26/16 22:47; Start 06/26/16 at 22:30; Stop 06/26/16 at 22:33; Status DC Haloperidol (Haldol) 10 mg STAT STAT IM Last administered on 06/27/16 12:40; Start 06/27/16 at 12:32; Stop 06/27/16 at 12:35; Status DC Haloperidol (Haldol) 10 mg STAT STAT IM Last administered on 06/27/16 21:32; Start 06/27/16 at 21:32; Stop 06/27/16 at 21:35; Status DC Haloperidol (Haldol) 10 mg STAT STAT IM Last administered on 06/29/16 20:40; Start 06/29/16 at 20:10; Stop 06/29/16 at 20:12; Status DC Home Med (Med Rec Complete!) ASDIRECTED XX ; Start 06/22/16 at 00:30; Stop at 00:30; Status DC Lamotrigine (LaMICtal) 100 mg BID PO Last administered on 06/30/16 09:37; Start 06/21/16 at 21:00; Stop 07/21/16 at 20:59 Levothyroxine Sodium (Synthroid) 0.075 mg DAILY@06 PO Last administered on 06/30 06:43; Start 06/22/16 at 06:00; Stop 07/22/16 at 05:59 Sylvia Carbonate (Eskalith-Cr) 450 mg BID PO Last administered on 06/27/16 09 :16; Start 06/21/16 at 21:00; Stop 06/27/16 at 22:37; Status DC Sylvia Carbonate (Sylvia Carbonate) 450 mg BID PO ; Start 06/22/16 at 09:00; Stop 06/22/16 at 09:00; Status DC Sylvia Carbonate (Lithobid Cr) 600 mg BID PO Last administered on 06/30/16 09 :37; Start 06/28/16 at 09:00; Stop 07/28/16 at 08:59 Lorazepam (Ativan) 1 mg STAT STAT IM Last administered on 06/26/16 22:46; Start 06/26/16 at 22:30; Stop 06/26/16 at 22:33; Status DC Lorazepam (Ativan) 2 mg Q6HP PRN IM AGITATION; Start 06/27/16 at 10:15; Stop at 10:14; Status Cancel Lorazepam (Ativan) 2 mg Q6HP PRN PO ANXIETY/AGITATION; Start 06/27/16 at 13:00 ; Stop 07/04/16 at 12:59 Lorazepam (Ativan) 2 mg STAT STAT IM Last administered on 06/27/16 12:40; Start 06/27/16 at 12:32; Stop 06/27/16 at 12:35; Status DC Lorazepam (Ativan) 2 mg STAT STAT IM Last administered on 06/27/16 21:32; Start 06/27/16 at 21:32; Stop 06/27/16 at 21:35; Status DC Lorazepam (Ativan) 2 mg STAT STAT IM Last administered on 06/29/16 20:41; Start 06/29/16 at 20:10; Stop 06/30/16 at 16:08; Status DC Magnesium Hydroxide (Milk Of Magnesia) 30 ml DAILYPRN PRN PO CONSTIPATION; Start 06/21/16 at 23:00; Stop 07/21/16 at 22:59 Metformin HCl (Glucophage Xr) 1,000 mg QHS PO Last administered on 06/29/16 21 :53; Start 06/21/16 at 21:00; Stop 07/21/16 at 20:59 Multivitamins (Theragram-M) 1 tab DAILY PO Last administered on 06/30/16 09:36 ; Start 06/22/16 at 09:00; Stop 07/22/16 at 08:59 Sertraline HCl (Zoloft) 37.5 mg DAILY PO Last administered on 06/30/16 09:36; Start 06/22/16 at 09:00; Stop 07/22/16 at 08:59 Trazodone HCl (Desyrel) 50 mg QHSP PRN PO INSOMNIA Last administered on 21:54; Start 06/21/16 at 23:00; Stop 07/21/16 at 22:59 Allergies Coded Allergies: Lactose (Unverified Allergy, Unknown, 03/29/16) JAYNE GUZMAN MD Jun 30, 2016 17:12
[2016-06-30 18:00] VITALS: BP 130/80
[2016-06-30] MEDS: metFORMIN XR 500MG TAB *GLUCOPHAGE XR PO SCH (21:46)
[2016-06-30] MEDS: traZODone 50 MG TAB PO PRN (21:46)
[2016-07-01] MEDS: LEVOTHYROXINE 0.075 MG TAB (75 MCG) PO SCH (06:07)
[2016-07-01 06:38] VITALS: BP 126/66
[2016-07-01] MEDS: LITHIUM CARBONATE 300 MG **CR** TAB PO SCH ×2 (10:00→20:24)
[2016-07-01] MEDS: MULTIVITAMINS/MINERALS THERAP 1 TAB PO SCH (10:00)
[2016-07-01] MEDS: cloNIDine 0.1 MG TAB PO SCH ×3 (10:01→20:24)
[2016-07-01] MEDS: lamoTRIgine 100MG TAB PO SCH ×2 (10:01→20:24)
[2016-07-01] MEDS: cloZAPine 100 MG TAB (S0136) PO SCH ×3 (10:02→20:25)
[2016-07-01] MEDS: SERTRALINE HCL 25 MG TABLET PO SCH (10:03)
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
[2016-07-01 18:00] VITALS: BP 127/71
[2016-07-01] MEDS: metFORMIN XR 500MG TAB *GLUCOPHAGE XR PO SCH (20:23)
[2016-07-01] MEDS: traZODone 50 MG TAB PO PRN (20:24)
[2016-07-01] MEDS: LORazepam 2 MG TAB PO PRN (20:24)
[2016-07-01] MEDS: HALOPERIDOL 5 MG TAB PO PRN (20:24)
[2016-07-02] MEDS: LEVOTHYROXINE 0.075 MG TAB (75 MCG) PO SCH (06:06)
[2016-07-02 07:11] VITALS: BP 110/58
[2016-07-02] MEDS: SERTRALINE HCL 25 MG TABLET PO SCH (09:30)
[2016-07-02] MEDS: cloZAPine 100 MG TAB (S0136) PO SCH ×3 (09:30→21:47)
[2016-07-02] MEDS: LITHIUM CARBONATE 300 MG **CR** TAB PO SCH ×2 (09:30→21:46)
[2016-07-02] MEDS: MULTIVITAMINS/MINERALS THERAP 1 TAB PO SCH (09:30)
[2016-07-02] MEDS: lamoTRIgine 100MG TAB PO SCH ×2 (09:30→21:47)
[2016-07-02] MEDS: cloNIDine 0.1 MG TAB PO SCH ×3 (09:30→21:51)
[2016-07-02] MEDS: HALOPERIDOL 5 MG TAB PO PRN ×2 (12:30→22:27)
--- NOTE | 2016-07-02 16:09 | IPNPDOC ---
[facility] Progress Note Progress Note DATE OF SERVICE: 07/02/16 HISTORY: 20 year old female with history of schizophrenia, borderline personality disorder and Intellectual disability who has been treated with Rhine, Lamictal and clozaril amongst other psychiatric medications. she has been verbally and physically aggressive to staff and self. she was brought in for the same reasons, for being aggressive and reporting SI to TLS staff and reporting command hallucinations. she started receiving a bigger dose of Rhine since last Tuesday, the and she has been more stable since then. She was seen today in the restraining room where she was laying on her bed, sleepy but was able to cooperate with part of the interview before she went back to sleep. She was alert, oriented partially to date, fully to person and place. Poor eye contact, disheveled, less suspicious and guarded. Thought process is still disorganized at times. thought content is positive for auditory hallucinations that are telling her "lots of stuff". Denies suicidal ideation and homicidal ideation. Her insight, and judgment are poor but have improved when compared to previous days. Her impulse control is slightly better. VITAL SIGNS: See below. NEW TEST RESULTS: . CURRENT MEDICATIONS: See below. DIAGNOSES: 1. Schizophrenia 2. Borderline PD 3. Intellectual Disability ASSESSMENT:Pt. has shown a good response for Rhine. will continue current treatment hoping she will be stabilized. MANAGEMENT PLAN: Will follow up on the possible transfer to [place] TIME SPENT: 15 minutes. Vital Signs Vital Signs Date Time Temp Pulse Resp B/P (MAP) Pulse Ox O2 Delivery O2 Flow Rate FiO2 07/02/16 09:30 110/58 07/02/16 07:11 97.9 73 18 07/01/16 18:00 Room Air 06/29/16 08:20 96 Laboratory Data 24H Labs Laboratory Tests 2 07/01/16 17:02: Bedside Glucose (Misc Panel) 79 Current Medications Current Medications Acetaminophen (Tylenol Tab) 650 mg Q6HP PRN PO HEADACHE or DISCOMFORT Last administered on 06/26/16t 16:57; Start 06/21/16 at 23:00; Stop 07/21/16 at 22:59 Al Hydrox/Mg Hydrox/Simethicone (Mylanta) 30 ml Q4HP PRN PO HEARTBURN/ INDIGESTION; Start 06/21/16 at 23:00; Stop 07/21/16 at 22:59 Clonidine HCl (Catapres) 0.1 mg TID PO Last administered on 07/02/16 09:30; Start 06/21/16 at 21:00; Stop 07/21/16 at 20:59 Clozapine (Clozaril) 50 mg QHS PO Last administered on 06/29/16 21:53; Start 06/21/16 at 21:00; Stop 06/30/16 at 13:55; Status DC Clozapine (Clozaril) 100 mg BID@,12 PO Last administered on 07/02/16 12:05; Start 06/22/16 at 09:00; Stop 07/05/16 at 08:59 Clozapine (Clozaril) 200 mg QHS PO Last administered on 06/29/16 21:55; Start 06/21/16 at 21:00; Stop 06/30/16 at 13:55; Status DC Clozapine (Clozaril) 250 mg QHS PO Last administered on 07/01/16 20:25; Start 06/30/16 at 21:00; Stop 07/07/16 at 20:59 Diphenhydramine HCl (Benadryl) 50 mg STAT STAT IM Last administered on 22:47; Start 06/26/16 at 22:30; Stop 06/26/16 at 22:33; Status DC Diphenhydramine HCl (Benadryl) 50 mg STAT STAT IM Last administered on 21:32; Start 06/27/16 at 21:32; Stop 06/27/16 at 21:35; Status DC Diphenhydramine HCl (Benadryl) 100 mg STAT STAT IM Last administered on 12:40; Start 06/27/16 at 12:32; Stop 06/27/16 at 12:35; Status DC Haloperidol (Haldol) 10 mg BID PRN PO AGITATION Last administered on 07/02/16 12:30; Start 06/27/16 at 13:00; Stop 07/27/16 at 12:59 Haloperidol (Haldol) 10 mg STAT STAT IM Last administered on 06/26/16 22:47; Start 06/26/16 at 22:30; Stop 06/26/16 at 22:33; Status DC Haloperidol (Haldol) 10 mg STAT STAT IM Last administered on 06/27/16 12:40; Start 06/27/16 at 12:32; Stop 06/27/16 at 12:35; Status DC Haloperidol (Haldol) 10 mg STAT STAT IM Last administered on 06/27/16 21:32; Start 06/27/16 at 21:32; Stop 06/27/16 at 21:35; Status DC Haloperidol (Haldol) 10 mg STAT STAT IM Last administered on 06/29/16 20:40; Start 06/29/16 at 20:10; Stop 06/29/16 at 20:12; Status DC Home Med (Med Rec Complete!) ASDIRECTED XX ; Start 06/22/16 at 00:30; Stop at 00:30; Status DC Lamotrigine (LaMICtal) 100 mg BID PO Last administered on 07/02/16 09:30; Start 06/21/16 at 21:00; Stop 07/21/16 at 20:59 Levothyroxine Sodium (Synthroid) 0.075 mg DAILY@06 PO Last administered on 07/02 06:06; Start 06/22/16 at 06:00; Stop 07/22/16 at 05:59 Rhine Carbonate (Eskalith-Cr) 450 mg BID PO Last administered on 06/27/16 09 :16; Start 06/21/16 at 21:00; Stop 06/27/16 at 22:37; Status DC Rhine Carbonate (Rhine Carbonate) 450 mg BID PO ; Start 06/22/16 at 09:00; Stop 06/22/16 at 09:00; Status DC Rhine Carbonate (Lithobid Cr) 600 mg BID PO Last administered on 07/02/16 09 :30; Start 06/28/16 at 09:00; Stop 07/28/16 at 08:59 Lorazepam (Ativan) 1 mg STAT STAT IM Last administered on 06/26/16 22:46; Start 06/26/16 at 22:30; Stop 06/26/16 at 22:33; Status DC Lorazepam (Ativan) 2 mg Q6HP PRN IM AGITATION; Start 06/27/16 at 10:15; Stop at 10:14; Status Cancel Lorazepam (Ativan) 2 mg Q6HP PRN PO ANXIETY/AGITATION Last administered on 07/01 20:24; Start 06/27/16 at 13:00; Stop 07/04/16 at 12:59 Lorazepam (Ativan) 2 mg STAT STAT IM Last administered on 06/27/16 12:40; Start 06/27/16 at 12:32; Stop 06/27/16 at 12:35; Status DC Lorazepam (Ativan) 2 mg STAT STAT IM Last administered on 06/27/16 21:32; Start 06/27/16 at 21:32; Stop 06/27/16 at 21:35; Status DC Lorazepam (Ativan) 2 mg STAT STAT IM Last administered on 06/29/16 20:41; Start 06/29/16 at 20:10; Stop 06/30/16 at 16:08; Status DC Magnesium Hydroxide (Milk Of Magnesia) 30 ml DAILYPRN PRN PO CONSTIPATION; Start 06/21/16 at 23:00; Stop 07/21/16 at 22:59 Metformin HCl (Glucophage Xr) 1,000 mg QHS PO Last administered on 07/01/16 20 :23; Start 06/21/16 at 21:00; Stop 07/21/16 at 20:59 Multivitamins (Theragram-M) 1 tab DAILY PO Last administered on 07/02/16 09:30 ; Start 06/22/16 at 09:00; Stop 07/22/16 at 08:59 Sertraline HCl (Zoloft) 37.5 mg DAILY PO Last administered on 07/02/16 09:30; Start 06/22/16 at 09:00; Stop 07/22/16 at 08:59 Trazodone HCl (Desyrel) 50 mg QHSP PRN PO INSOMNIA Last administered on 20:24; Start 06/21/16 at 23:00; Stop 07/21/16 at 22:59 Allergies Coded Allergies: Lactose (Unverified Allergy, Unknown, 03/29/16) JAYNE GUZMAN MD Jul 02, 2016 16:09
[2016-07-02 18:00] VITALS: BP 139/79
[2016-07-02] MEDS: metFORMIN XR 500MG TAB *GLUCOPHAGE XR PO SCH (21:46)
[2016-07-03] MEDS: LEVOTHYROXINE 0.075 MG TAB (75 MCG) PO SCH (06:15)
[2016-07-03 07:11] VITALS: BP 129/73
[2016-07-03] MEDS: SERTRALINE HCL 25 MG TABLET PO SCH (08:24)
[2016-07-03] MEDS: cloZAPine 100 MG TAB (S0136) PO SCH ×3 (08:24→22:04)
[2016-07-03] MEDS: lamoTRIgine 100MG TAB PO SCH ×2 (08:24→22:04)
[2016-07-03] MEDS: LITHIUM CARBONATE 300 MG **CR** TAB PO SCH ×2 (08:24→22:04)
[2016-07-03] MEDS: cloNIDine 0.1 MG TAB PO SCH ×3 (08:24→22:04)
[2016-07-03] MEDS: MULTIVITAMINS/MINERALS THERAP 1 TAB PO SCH (08:24)
[2016-07-03] MEDS: HALOPERIDOL 5 MG TAB PO PRN (15:43)
[2016-07-03 18:00] VITALS: BP 142/86
[2016-07-03] MEDS: metFORMIN XR 500MG TAB *GLUCOPHAGE XR PO SCH (22:04)
[2016-07-04] VITALS (10 sets, daily range): BP systolic 129–166; BP diastolic 65–106
[2016-07-04] MEDS: LEVOTHYROXINE 0.075 MG TAB (75 MCG) PO SCH (06:09)
[2016-07-04] MEDS: MULTIVITAMINS/MINERALS THERAP 1 TAB PO SCH (08:03)
[2016-07-04] MEDS: lamoTRIgine 100MG TAB PO SCH ×2 (08:03→21:13)
[2016-07-04] MEDS: LITHIUM CARBONATE 300 MG **CR** TAB PO SCH ×2 (08:03→21:13)
[2016-07-04] MEDS: cloNIDine 0.1 MG TAB PO SCH ×3 (08:03→21:13)
[2016-07-04] MEDS: SERTRALINE HCL 25 MG TABLET PO SCH (08:03)
[2016-07-04] MEDS: cloZAPine 100 MG TAB (S0136) PO SCH ×3 (08:03→21:13)
[2016-07-04] MEDS ORDERED: diphenhydrAMINE INJ 50MG/ML VIAL (J1200) IM ONE (16:40)
[2016-07-04] MEDS ORDERED: HALOPERIDOL 5 MG/ML VIAL (J1630) IM ONE (16:40)
[2016-07-04] MEDS ORDERED: LORazepam 2 MG/ML VIAL (J2060) IM ONE (16:40)
[2016-07-04] MEDS: metFORMIN XR 500MG TAB *GLUCOPHAGE XR PO SCH (21:13)
[2016-07-04] MEDS: traZODone 50 MG TAB PO PRN (21:32)
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
[2016-07-05 06:09] VITALS: BP 134/80
[2016-07-05] MEDS: LEVOTHYROXINE 0.075 MG TAB (75 MCG) PO SCH (06:19)
--- NOTE | 2016-07-05 08:09 | IPN ---
DATE: 07/05/2016 Post-restraint documentation. The patient calmed significantly and has remained calm through the night and following morning. Restraint was considered effective and to some extent was invited by the patient herself, who knew her own limits or lack thereof. There was no evidence that the patient was affected emotionally, although I did provide counseling and assistance to her. She was cooperative and stated that she felt she would do better with one-to-one even after she was let out of restraints. No change in treatment plan recommendations at this time. The restraint process was carried out carefully with no injuries to the patient or staff. Use of medication seemed appropriate in dosage.
[2016-07-05] MEDS: cloZAPine 100 MG TAB (S0136) PO SCH ×3 (09:00→21:52)
[2016-07-05] MEDS: SERTRALINE HCL 25 MG TABLET PO SCH (09:39)
[2016-07-05] MEDS: LITHIUM CARBONATE 300 MG **CR** TAB PO SCH ×2 (09:39→21:53)
[2016-07-05] MEDS: MULTIVITAMINS/MINERALS THERAP 1 TAB PO SCH (09:39)
[2016-07-05] MEDS: cloNIDine 0.1 MG TAB PO SCH ×3 (09:39→21:54)
[2016-07-05] MEDS: lamoTRIgine 100MG TAB PO SCH ×2 (09:39→21:52)
[2016-07-05] MEDS ORDERED: cloZAPine 100 MG TAB (S0136) PO STA (14:56)
[2016-07-05 15:15] LABS: BASO % 0.5 % (0.0-1.0); EOS % 0.1 % (0.0-3.0); LARGE UNSTAINED CELL # 0.2 K/mm3 (0.0-0.4); LARGE UNSTAINED CELL % 3.1 % (0.0-4.0); LYMPH # 2.8 K/mm3 (1.5-6.5); LYMPH % 34.7 % (24.0-44.0); MEAN CORPUSCULAR HEMOGLOBIN 30.7 pg (27.0-33.0); MEAN CORPUSCULAR HGB CONC 33.7 g/dl (32.0-36.5); MEAN CORPUSCULAR VOLUME 91.1 fl (80.0-96.0); MONO # 0.4 K/mm3 (0.0-0.8); MONO % 5.2 % (0.0-5.0); NEUTROPHILS # 4.1 K/mm3 (1.8-7.7); NEUTROPHILS % 56.4 % (36.0-66.0); PLATELET COUNT, AUTOMATED 269 k/mm3 (150-450); RED CELL DISTRIBUTION WIDTH 12.3 % (11.5-14.5); WHITE BLOOD COUNT 7.3 K/mm3 (4.0-10.0)
[2016-07-05 18:00] VITALS: BP 134/80
--- NOTE | 2016-07-05 20:29 | IPNPDOC ---
[facility] Progress Note Progress Note DATE OF SERVICE: 07/05/16 HISTORY: Evaluated 20 year old female with history of Paranoid Schizophrenia, Borderline Personality Disorder and Intellectual Disability who has a previous history of aggression, violence, suicidal ideation and command auditory hallucinations. She has been coded several times but she was stable for almost a week until she couldnt control herself over the weekend, when reportedly, she got upset with a peer and started yelling at staff, punching teague and doors as she had done it in the past. She had to be restrained with haldol 10 mgs. IM, Ativan 1 mg. Im and Benadryl 50 mgs IM. This morning she was seen in the restraining room without the restraints, she was calmed and sleeping. She was awaken and she was not upset. She was cooperative, she was oriented to person and place, had a slurred speech, was sleepy, was not suicidal, not homicidal but she stated she was hearing voices "on and off" and "the voices were telling her a lot of stuff". At the time she was evaluated whe was not a danger to self or others. VITAL SIGNS: See below. NEW TEST RESULTS: . CURRENT MEDICATIONS: See below. ASSESSMENT:Pt. has improved, in spite of this outburst. For almost one week she didnt code, but shes very labile and she gets agitated when other patients do. She will do better in a extermination inspector treatment facility that can provide her with a higher level of care. MANAGEMENT PLAN: She will Continue with current medications and will continue with arrangements to transfer her to [place] TIME SPENT: 15 minutes. Vital Signs Vital Signs Date Time Temp Pulse Resp B/P (MAP) Pulse Ox O2 Delivery O2 Flow Rate FiO2 07/05/16 15:56 137/82 07/05/16 06:09 97.0 71 18 Room Air 06/29/16 08:20 96 Laboratory Data 24H Labs Laboratory Tests 2 07/05/16 06:12: Bedside Glucose (Misc Panel) 84 07/05/16 14:36: White Blood Count 7.3, Red Blood Count 4.29, Hemoglobin 13.2, Hematocrit 39.1, Mean Corpuscular Volume 91.1, Mean Corpuscular Hemoglobin 30.7, Mean Corpuscular Hemoglobin Concent 33.7, Red Cell Distribution Width 12.3, Platelet Count 269, Neutrophils (%) (Auto) 56.4, Lymphocytes (%) (Auto) 34.7, Monocytes ( %) (Auto) 5.2H, Eosinophils (%) (Auto) 0.1, Basophils (%) (Auto) 0.5, Neutrophils # (Auto) 4.1, Lymphocytes # (Auto) 2.8, Monocytes # (Auto) 0.4, Eosinophils # (Auto) 0.0, Basophils # (Auto) 0.0, Large Unclassified Cells % 3.1 , Large Unclassified Cells # 0.2 07/05/16 17:09: Bedside Glucose (Misc Panel) 80 CBC/BMP Laboratory Tests 07/05/16 14:36 Red Blood Count 4.29, Mean Corpuscular Volume 91.1, Mean Corpuscular Hemoglobin 30.7, Mean Corpuscular Hemoglobin Concent 33.7, Red Cell Distribution Width 12.3 , Neutrophils (%) (Auto) 56.4, Lymphocytes (%) (Auto) 34.7, Monocytes (%) (Auto ) 5.2 H, Eosinophils (%) (Auto) 0.1, Basophils (%) (Auto) 0.5, Neutrophils # ( Auto) 4.1, Lymphocytes # (Auto) 2.8, Monocytes # (Auto) 0.4, Eosinophils # (Auto ) 0.0, Basophils # (Auto) 0.0 Current Medications Current Medications Acetaminophen (Tylenol Tab) 650 mg Q6HP PRN PO HEADACHE or DISCOMFORT Last administered on 06/26/16 16:57; Start 06/21/16 at 23:00; Stop 07/21/16 at 22:59 Al Hydrox/Mg Hydrox/Simethicone (Mylanta) 30 ml Q4HP PRN PO HEARTBURN/ INDIGESTION; Start 06/21/16 at 23:00; Stop 07/21/16 at 22:59 Clonidine HCl (Catapres) 0.1 mg TID PO Last administered on 07/05/16 15:56; Start 06/21/16 at 21:00; Stop 07/21/16 at 20:59 Clozapine (Clozaril) 50 mg QHS PO Last administered on 06/29/16 21:53; Start 06/21/16 at 21:00; Stop 06/30/16 at 13:55; Status DC Clozapine (Clozaril) 100 mg BID PO ; Start 07/05/16 at 21:00; Stop 07/12/16 at 20: 59; Status UNV Clozapine (Clozaril) 100 mg BID@,12 PO Last administered on 07/04/16 12:25; Start 06/22/16 at 09:00; Stop 07/12/16 at 08:59 Clozapine (Clozaril) 200 mg QHS PO Last administered on 06/29/16 21:55; Start 06/21/16 at 21:00; Stop 06/30/16 at 13:55; Status DC Clozapine (Clozaril) 200 mg STAT STAT PO Last administered on 07/05/16 15:02; Start 07/05/16 at 14:56; Stop 07/05/16 at 14:59; Status DC Clozapine (Clozaril) 250 mg QHS PO Last administered on 07/04/16 21:13; Start 06/30/16 at 21:00; Stop 07/11/16 at 20:59 Diphenhydramine HCl (Benadryl) 50 mg STAT STAT IM Last administered on 22:47; Start 06/26/16 at 22:30; Stop 06/26/16 at 22:33; Status DC Diphenhydramine HCl (Benadryl) 50 mg STAT STAT IM Last administered on 21:32; Start 06/27/16 at 21:32; Stop 06/27/16 at 21:35; Status DC Diphenhydramine HCl (Benadryl) 100 mg STAT STAT IM Last administered on 12:40; Start 06/27/16 at 12:32; Stop 06/27/16 at 12:35; Status DC Haloperidol (Haldol) 10 mg BID PRN PO AGITATION Last administered on 07/03/16 15:43; Start 06/27/16 at 13:00; Stop 07/27/16 at 12:59 Haloperidol (Haldol) 10 mg STAT STAT IM Last administered on 06/26/16 22:47; Start 06/26/16 at 22:30; Stop 06/26/16 at 22:33; Status DC Haloperidol (Haldol) 10 mg STAT STAT IM Last administered on 06/27/16 12:40; Start 06/27/16 at 12:32; Stop 06/27/16 at 12:35; Status DC Haloperidol (Haldol) 10 mg STAT STAT IM Last administered on 06/27/16 21:32; Start 06/27/16 at 21:32; Stop 06/27/16 at 21:35; Status DC Haloperidol (Haldol) 10 mg STAT STAT IM Last administered on 06/29/16 20:40; Start 06/29/16 at 20:10; Stop 06/29/16 at 20:12; Status DC Home Med (Med Rec Complete!) ASDIRECTED XX ; Start 06/22/16 at 00:30; Stop at 00:30; Status DC Lamotrigine (LaMICtal) 100 mg BID PO Last administered on 07/05/16 09:39; Start 06/21/16 at 21:00; Stop 07/21/16 at 20:59 Levothyroxine Sodium (Synthroid) 0.075 mg DAILY@06 PO Last administered on 06:19; Start 06/22/16 at 06:00; Stop 07/22/16 at 05:59 [place] Carbonate (Eskalith-Cr) 450 mg BID PO Last administered on 06/27/16 09 :16; Start 06/21/16 at 21:00; Stop 06/27/16 at 22:37; Status DC [place] Carbonate ([place] Carbonate) 450 mg BID PO ; Start 06/22/16 at 09:00; Stop 06/22/16 at 09:00; Status DC [place] Carbonate (Lithobid Cr) 600 mg BID PO Last administered on 07/05/16 09: 39; Start 06/28/16 at 09:00; Stop 07/28/16 at 08:59 Lorazepam (Ativan) 1 mg STAT STAT IM Last administered on 06/26/16 22:46; Start 06/26/16 at 22:30; Stop 06/26/16 at 22:33; Status DC Lorazepam (Ativan) 2 mg Q6HP PRN IM AGITATION; Start 06/27/16 at 10:15; Stop at 10:14; Status Cancel Lorazepam (Ativan) 2 mg Q6HP PRN PO ANXIETY/AGITATION Last administered on 07/01 20:24; Start 06/27/16 at 13:00; Stop 07/10/16 at 12:59 Lorazepam (Ativan) 2 mg STAT STAT IM Last administered on 06/27/16 12:40; Start 06/27/16 at 12:32; Stop 06/27/16 at 12:35; Status DC Lorazepam (Ativan) 2 mg STAT STAT IM Last administered on 06/27/16 21:32; Start 06/27/16 at 21:32; Stop 06/27/16 at 21:35; Status DC Lorazepam (Ativan) 2 mg STAT STAT IM Last administered on 06/29/16 20:41; Start 06/29/16 at 20:10; Stop 06/30/16 at 16:08; Status DC Magnesium Hydroxide (Milk Of Magnesia) 30 ml DAILYPRN PRN PO CONSTIPATION; Start 06/21/16 at 23:00; Stop 07/21/16 at 22:59 Metformin HCl (Glucophage Xr) 1,000 mg QHS PO Last administered on 07/04/16 21 :13; Start 06/21/16 at 21:00; Stop 07/21/16 at 20:59 Miscellaneous (Unresolved Clarification Entry) SEE LABEL COMMENTS UNRESOLVED XX ; Start 07/05/16 at 00:01; Stop 07/05/16 at 14:26; Status DC Multivitamins (Theragram-M) 1 tab DAILY PO Last administered on 07/05/16 09:39 ; Start 06/22/16 at 09:00; Stop 07/22/16 at 08:59 Sertraline HCl (Zoloft) 37.5 mg DAILY PO Last administered on 07/05/16 09:39; Start 06/22/16 at 09:00; Stop 07/22/16 at 08:59 Trazodone HCl (Desyrel) 50 mg QHSP PRN PO INSOMNIA Last administered on 21:32; Start 06/21/16 at 23:00; Stop 07/21/16 at 22:59 Allergies Coded Allergies: Lactose (Unverified Allergy, Unknown, 03/29/16) JAYNE GUZMAN MD July 05, 2016 20:29
--- NOTE | 2016-07-05 20:56 | IPN ---
DATE: 07/05/2016 20-year-old female with history of paranoid schizophrenia, borderline personality disorder on intellectual disability, who coded over the weekend on 07/04/2016, after she started screaming at another patient, she punched a wall, banged her head against the wall, sat on the floor and although numerous staff members tried to calm her down and speak to her to get her to talk, she refused to calm down. She has stated previously that once she reaches this point she cannot be calmed down. She was restrained with 10 mg of Haldol intramuscular (IM), Ativan 1 mg, and Benadryl 50 mg. Both chemical and physical restraints were applied. This morning, the attending physician professional wrestler reevaluated her and she stated that she was feeling fine. She did not manifest any medication side effects and she said she was doing okay. Later on, she manifested to another attending, to the author of this document, that she was okay, but she was a little bit sleepy. She stated that she was not feeling suicidal or homicidal, but that she was having auditory hallucinations, although she was not able to be specific as to what the voices were telling her to do. She was seen in the restraining room off the restraints. She was calm and she was cooperative with the interview. Unfortunately, the author of this document was not able to assess further because she went back to sleep. She was sedated from the medications that she had received at night. The patient is pending transfer to [facility] for long-term hospitalization due to the fact that she requires a level of care that the inpatient mental health unit does not have. She will continue on her current medication and on the current level of care, trying to encourage her to redirect her anger in a different way and also try to encourage her to stay away from very agitated patients because this usually makes her more violent and aggressive. At the time that she was evaluated today, she was lying on her bed in the restraining room without the restraints. She was alert, partially oriented, and was cooperative with the interview, but she was too sedated to continue to be assessed. She will be assessed tomorrow.
[2016-07-05] MEDS ORDERED: cloZAPine 100 MG TAB (S0136) PO SCH (21:00)
--- NOTE | 2016-07-05 21:49 | IPNPDOC ---
[facility] Progress Note Progress Note DATE OF SERVICE: 07/05/16 HISTORY: Evaluated 20 year old with history of schizophrenia who decompensated over the weekend. According to patients peers, she became explosive after another patient " got on her nerves" She did receive IM medication and was placed on 4 point restraints. She was taken off the restraints this morning and she reported she was OK, was cooperative with interview. She had asked not to yenny off the restraints previously, as she did last weekend because she didnt feel safe without them ( she still felt aggressive and impulsive). She was evaluated today at the restraining room , she was out of the restraints , laying on her bed, and she was cooperative when she woke up. She said she was feeling OK. Denied suicidal or homicidal ideation but admitted to listening to voices "that are telling me lots of stuff". Her speech was slurred, she was alert but sleepy and the rest of the mental status examination couldnt be performed because she went back to sleep. VITAL SIGNS: See below. NEW TEST RESULTS: . CURRENT MEDICATIONS: See below. DIAGNOSES: 1. Schizophrenia, paranoid type 2. Borderline Personality Disorder. 3. Intellectual Disability ASSESSMENT:Will continue on current treatment. Shes still unstable, but she was able to control herself very well since last Tuesday evening. She had shown improvement since last week. Will encourage her to stay away from agitated patients and/or direct her anger in a less harmful way. MANAGEMENT PLAN: Continue transfer plan to [place]. TIME SPENT: 15 minutes. Vital Signs Vital Signs Date Time Temp Pulse Resp B/P (MAP) Pulse Ox O2 Delivery O2 Flow Rate FiO2 07/05/16 15:56 137/82 07/05/16 06:09 97.0 71 18 Room Air 06/29/16 08:20 96 Laboratory Data 24H Labs Laboratory Tests 2 07/05/16 06:12: Bedside Glucose (Misc Panel) 84 07/05/16 14:36: White Blood Count 7.3, Red Blood Count 4.29, Hemoglobin 13.2, Hematocrit 39.1, Mean Corpuscular Volume 91.1, Mean Corpuscular Hemoglobin 30.7, Mean Corpuscular Hemoglobin Concent 33.7, Red Cell Distribution Width 12.3, Platelet Count 269, Neutrophils (%) (Auto) 56.4, Lymphocytes (%) (Auto) 34.7, Monocytes ( %) (Auto) 5.2H, Eosinophils (%) (Auto) 0.1, Basophils (%) (Auto) 0.5, Neutrophils # (Auto) 4.1, Lymphocytes # (Auto) 2.8, Monocytes # (Auto) 0.4, Eosinophils # (Auto) 0.0, Basophils # (Auto) 0.0, Large Unclassified Cells % 3.1 , Large Unclassified Cells # 0.2 07/05/16 17:09: [facility] 80 CBC/BMP Laboratory Tests 07/05/16 14:36 Red Blood Count 4.29, Mean Corpuscular Volume 91.1, Mean Corpuscular Hemoglobin 30.7, Mean Corpuscular Hemoglobin Concent 33.7, Red Cell Distribution Width 12.3 , Neutrophils (%) (Auto) 56.4, Lymphocytes (%) (Auto) 34.7, Monocytes (%) (Auto ) 5.2 H, Eosinophils (%) (Auto) 0.1, Basophils (%) (Auto) 0.5, Neutrophils # ( Auto) 4.1, Lymphocytes # (Auto) 2.8, Monocytes # (Auto) 0.4, Eosinophils # (Auto ) 0.0, Basophils # (Auto) 0.0 Current Medications Current Medications Acetaminophen (Tylenol Tab) 650 mg Q6HP PRN PO HEADACHE or DISCOMFORT Last administered on 06/26/16 16:57; Start 06/21/16 at 23:00; Stop 07/21/16 at 22:59 Al Hydrox/Mg Hydrox/Simethicone (Mylanta) 30 ml Q4HP PRN PO HEARTBURN/ INDIGESTION; Start 06/21/16 at 23:00; Stop 07/21/16 at 22:59 Clonidine HCl (Catapres) 0.1 mg TID PO Last administered on 07/05/16 15:56; Start 06/21/16 at 21:00; Stop 07/21/16 at 20:59 Clozapine (Clozaril) 50 mg QHS PO Last administered on 06/29/16 21:53; Start 06/21/16 at 21:00; Stop 06/30/16 at 13:55; Status DC Clozapine (Clozaril) 100 mg BID PO ; Start 07/05/16 at 21:00; Stop 07/12/16 at 20: 59; Status UNV Clozapine (Clozaril) 100 mg BID@,12 PO Last administered on 07/04/16 12:25; Start 06/22/16 at 09:00; Stop 07/12/16 at 08:59 Clozapine (Clozaril) 200 mg QHS PO Last administered on 06/29/16 21:55; Start 06/21/16 at 21:00; Stop 06/30/16 at 13:55; Status DC Clozapine (Clozaril) 200 mg STAT STAT PO Last administered on 07/05/16 15:02; Start 07/05/16 at 14:56; Stop 07/05/16 at 14:59; Status DC Clozapine (Clozaril) 250 mg QHS PO Last administered on 07/04/16 21:13; Start 06/30/16 at 21:00; Stop 07/11/16 at 20:59 Diphenhydramine HCl (Benadryl) 50 mg STAT STAT IM Last administered on 22:47; Start 06/26/16 at 22:30; Stop 06/26/16 at 22:33; Status DC Diphenhydramine HCl (Benadryl) 50 mg STAT STAT IM Last administered on 21:32; Start 06/27/16 at 21:32; Stop 06/27/16 at 21:35; Status DC Diphenhydramine HCl (Benadryl) 100 mg STAT STAT IM Last administered on 12:40; Start 06/27/16 at 12:32; Stop 06/27/16 at 12:35; Status DC Haloperidol (Haldol) 10 mg BID PRN PO AGITATION Last administered on 07/03/16 15:43; Start 06/27/16 at 13:00; Stop 07/27/16 at 12:59 Haloperidol (Haldol) 10 mg STAT STAT IM Last administered on 06/26/16 22:47; Start 06/26/16 at 22:30; Stop 06/26/16 at 22:33; Status DC Haloperidol (Haldol) 10 mg STAT STAT IM Last administered on 06/27/16 12:40; Start 06/27/16 at 12:32; Stop 06/27/16 at 12:35; Status DC Haloperidol (Haldol) 10 mg STAT STAT IM Last administered on 06/27/16 21:32; Start 06/27/16 at 21:32; Stop 06/27/16 at 21:35; Status DC Haloperidol (Haldol) 10 mg STAT STAT IM Last administered on 06/29/16 20:40; Start 06/29/16 at 20:10; Stop 06/29/16 at 20:12; Status DC Home Med (Med Rec Complete!) ASDIRECTED XX ; Start 06/22/16 at 00:30; Stop at 00:30; Status DC Lamotrigine (LaMICtal) 100 mg BID PO Last administered on 07/05/16 09:39; Start 06/21/16 at 21:00; Stop 07/21/16 at 20:59 Levothyroxine Sodium (Synthroid) 0.075 mg DAILY@06 PO Last administered on 06:19; Start 06/22/16 at 06:00; Stop 07/22/16 at 05:59 [place] Carbonate (Eskalith-Cr) 450 mg BID PO Last administered on 06/27/16 09 :16; Start 06/21/16 at 21:00; Stop 06/27/16 at 22:37; Status DC [place] Carbonate ([place] Carbonate) 450 mg BID PO ; Start 06/22/16 at 09:00; Stop 06/22/16 at 09:00; Status DC [place] Carbonate (Lithobid Cr) 600 mg BID PO Last administered on 07/05/16 09: 39; Start 06/28/16 at 09:00; Stop 07/28/16 at 08:59 Lorazepam (Ativan) 1 mg STAT STAT IM Last administered on 06/26/16 22:46; Start 06/26/16 at 22:30; Stop 06/26/16 at 22:33; Status DC Lorazepam (Ativan) 2 mg Q6HP PRN IM AGITATION; Start 06/27/16 at 10:15; Stop at 10:14; Status Cancel Lorazepam (Ativan) 2 mg Q6HP PRN PO ANXIETY/AGITATION Last administered on 07/01 20:24; Start 06/27/16 at 13:00; Stop 07/10/16 at 12:59 Lorazepam (Ativan) 2 mg STAT STAT IM Last administered on 06/27/16 12:40; Start 06/27/16 at 12:32; Stop 06/27/16 at 12:35; Status DC Lorazepam (Ativan) 2 mg STAT STAT IM Last administered on 06/27/16 21:32; Start 06/27/16 at 21:32; Stop 06/27/16 at 21:35; Status DC Lorazepam (Ativan) 2 mg STAT STAT IM Last administered on 06/29/16 20:41; Start 06/29/16 at 20:10; Stop 06/30/16 at 16:08; Status DC Magnesium Hydroxide (Milk Of Magnesia) 30 ml DAILYPRN PRN PO CONSTIPATION; Start 06/21/16 at 23:00; Stop 07/21/16 at 22:59 Metformin HCl (Glucophage Xr) 1,000 mg QHS PO Last administered on 07/04/16 21 :13; Start 06/21/16 at 21:00; Stop 07/21/16 at 20:59 Miscellaneous (Unresolved Clarification Entry) SEE LABEL COMMENTS UNRESOLVED XX ; Start 07/05/16 at 00:01; Stop 07/05/16 at 14:26; Status DC Multivitamins (Theragram-M) 1 tab DAILY PO Last administered on 07/05/16 09:39 ; Start 06/22/16 at 09:00; Stop 07/22/16 at 08:59 Sertraline HCl (Zoloft) 37.5 mg DAILY PO Last administered on 07/05/16 09:39; Start 06/22/16 at 09:00; Stop 07/22/16 at 08:59 Trazodone HCl (Desyrel) 50 mg QHSP PRN PO INSOMNIA Last administered on 21:32; Start 06/21/16 at 23:00; Stop 07/21/16 at 22:59 Allergies Coded Allergies: Lactose (Unverified Allergy, Unknown, 03/29/16) JAYNE GUZMAN MD July 05, 2016 21:49
[2016-07-05] MEDS: traZODone 50 MG TAB PO PRN (21:52)
[2016-07-05] MEDS: metFORMIN XR 500MG TAB *GLUCOPHAGE XR PO SCH (21:53)
[2016-07-06 06:09] VITALS: BP 114/57
[2016-07-06] MEDS: LEVOTHYROXINE 0.075 MG TAB (75 MCG) PO SCH (06:29)
[2016-07-06] MEDS: MULTIVITAMINS/MINERALS THERAP 1 TAB PO SCH (08:59)
[2016-07-06] MEDS: cloNIDine 0.1 MG TAB PO SCH ×3 (08:59→21:12)
[2016-07-06] MEDS: lamoTRIgine 100MG TAB PO SCH ×2 (08:59→21:12)
[2016-07-06] MEDS: cloZAPine 100 MG TAB (S0136) PO SCH ×3 (08:59→21:13)
[2016-07-06] MEDS: LITHIUM CARBONATE 300 MG **CR** TAB PO SCH ×2 (09:00→21:13)
[2016-07-06] MEDS: SERTRALINE HCL 25 MG TABLET PO SCH (09:00)
[2016-07-06 18:00] VITALS: BP 128/70
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
[2016-07-06] MEDS: metFORMIN XR 500MG TAB *GLUCOPHAGE XR PO SCH (21:10)
[2016-07-06] MEDS: ACETAMINOPHEN TAB 650MG DOSE (2X325MG) PO PRN (21:15)
[2016-07-07] MEDS: LEVOTHYROXINE 0.075 MG TAB (75 MCG) PO SCH (05:29)
[2016-07-07 06:18] VITALS: BP 109/61
[2016-07-07] MEDS: cloZAPine 100 MG TAB (S0136) PO SCH ×3 (08:58→21:40)
[2016-07-07] MEDS: SERTRALINE HCL 25 MG TABLET PO SCH (08:58)
[2016-07-07] MEDS: MULTIVITAMINS/MINERALS THERAP 1 TAB PO SCH (08:58)
[2016-07-07] MEDS: LITHIUM CARBONATE 300 MG **CR** TAB PO SCH ×2 (08:58→21:40)
[2016-07-07] MEDS: cloNIDine 0.1 MG TAB PO SCH ×3 (08:59→21:39)
[2016-07-07] MEDS: lamoTRIgine 100MG TAB PO SCH ×2 (08:59→21:39)
--- NOTE | 2016-07-07 15:24 | IPNPDOC ---
[facility] Progress Note Progress Note DATE OF SERVICE: 07/07/16 INTERVAL HISTORY: Medication Side effects: Denies medication side effects Behavior: Well behaved, has remaining in her room, hasn't been aggressive or violent Group Attendance: Hasn't attended groups today Psychiatric Symptom change: Less defensive, less aggressive, less paranoid. Willing to comply with rules in order to be able to dress in her personal clothes. VITAL SIGNS: See below. NEW TEST RESULTS: See below CURRENT MEDICATIONS: See below. MENTAL STATUS EXAMINATION: General:Alert, laying in bed, cooperative with interview, less guarded and suspicious Speech: Normal Thought processes:Less disorganized, more goal oriented Thought content: Negative for auditory hallucinations, visual hallucinations ( as stated per patient), negative for SI or HI. Paranoid delusions are present but are less intense. Abstract reasoning, and computation: Unable to assess Description of associations:Not loose Description of abnormal or psychotic thoughts:Paranoid delusions Judgment: Poor Insight: Poor Orientation:Oriented to place and person and partially to date and time. Recent and remote memory: Recent memory is fair, remote is impaired Attention span and concentration: Poor Fund of knowledge: Unable to assess Mood: "Im O.K:" Affect: Less labile DIAGNOSES: 1. Paranoid schizophrenia. 2. Borderline PD. 3. Intellectual Disability. ASSESSMENT:Patient still needs to be more stable but she has been able to control her impulses and if she continues like this, she will be able to dress in her personal clothes by the end of the week. MANAGEMENT PLAN: Medications:Continue with current treatment Psychotherapy:Will encourage her to attend groups Social: Will encourage her to use social skills when interacting with peers and staff. [facility]: ----- Disposition: Will continue at the [facility] until she gets transferred to [place]. TIME SPENT: 15 minutes. Vital Signs Vital Signs Date Time Temp Pulse Resp B/P (MAP) Pulse Ox O2 Delivery O2 Flow Rate FiO2 07/07/16 08:59 130/95 07/07/16 06:18 97.7 67 18 Room Air Laboratory Data 24H Labs Laboratory Tests 2 07/06/16 17:01: Bedside Glucose (Misc Panel) 83 07/07/16 09:03: Bedside Glucose (Misc Panel) 84 Current Medications Current Medications Acetaminophen (Tylenol Tab) 650 mg Q6HP PRN PO HEADACHE or DISCOMFORT Last administered on 07/06/16t 21:15; Start 06/21/16 at 23:00; Stop 07/21/16 at 22:59 Al Hydrox/Mg Hydrox/Simethicone (Mylanta) 30 ml Q4HP PRN PO HEARTBURN/ INDIGESTION; Start 06/21/16 at 23:00; Stop 07/21/16 at 22:59 Clonidine HCl (Catapres) 0.1 mg TID PO Last administered on 07/07/16 08:59; Start 06/21/16 at 21:00; Stop 07/21/16 at 20:59 Clozapine (Clozaril) 50 mg QHS PO Last administered on 06/29/16 21:53; Start 06/21/16 at 21:00; Stop 06/30/16 at 13:55; Status DC Clozapine (Clozaril) 100 mg BID PO ; Start 07/05/16 at 21:00; Stop 07/12/16 at 20: 59; Status UNV Clozapine (Clozaril) 100 mg BID@09,12 PO Last administered on 07/07/16 11:59; Start 06/22/16 at 09:00; Stop 07/12/16 at 08:59 Clozapine (Clozaril) 200 mg QHS PO Last administered on 06/29/16 21:55; Start 06/21/16 at 21:00; Stop 06/30/16 at 13:55; Status DC Clozapine (Clozaril) 200 mg STAT STAT PO Last administered on 07/05/16 15:02; Start 07/05/16 at 14:56; Stop 07/05/16 at 14:59; Status DC Clozapine (Clozaril) 250 mg QHS PO Last administered on 07/06/16 21:13; Start 06/30/16 at 21:00; Stop 07/11/16 at 20:59 Diphenhydramine HCl (Benadryl) 50 mg STAT STAT IM Last administered on 22:47; Start 06/26/16 at 22:30; Stop 06/26/16 at 22:33; Status DC Diphenhydramine HCl (Benadryl) 50 mg STAT STAT IM Last administered on 21:32; Start 06/27/16 at 21:32; Stop 06/27/16 at 21:35; Status DC Diphenhydramine HCl (Benadryl) 100 mg STAT STAT IM Last administered on 12:40; Start 06/27/16 at 12:32; Stop 06/27/16 at 12:35; Status DC Haloperidol (Haldol) 10 mg BID PRN PO AGITATION Last administered on 07/03/16 15:43; Start 06/27/16 at 13:00; Stop 07/27/16 at 12:59 Haloperidol (Haldol) 10 mg STAT STAT IM Last administered on 06/26/16 22:47; Start 06/26/16 at 22:30; Stop 06/26/16 at 22:33; Status DC Haloperidol (Haldol) 10 mg STAT STAT IM Last administered on 06/27/16 12:40; Start 06/27/16 at 12:32; Stop 06/27/16 at 12:35; Status DC Haloperidol (Haldol) 10 mg STAT STAT IM Last administered on 06/27/16 21:32; Start 06/27/16 at 21:32; Stop 06/27/16 at 21:35; Status DC Haloperidol (Haldol) 10 mg STAT STAT IM Last administered on 06/29/16 20:40; Start 06/29/16 at 20:10; Stop 06/29/16 at 20:12; Status DC Home Med (Med Rec Complete!) ASDIRECTED XX ; Start 06/22/16 at 00:30; Stop at 00:30; Status DC Lamotrigine (LaMICtal) 100 mg BID PO Last administered on 07/07/16 08:59; Start 06/21/16 at 21:00; Stop 07/21/16 at 20:59 Levothyroxine Sodium (Synthroid) 0.075 mg DAILY@06 PO Last administered on 05:29; Start 06/22/16 at 06:00; Stop 07/22/16 at 05:59 [place] Carbonate (Eskalith-Cr) 450 mg BID PO Last administered on 06/27/16 09 :16; Start 06/21/16 at 21:00; Stop 06/27/16 at 22:37; Status DC [place] Carbonate ([place] Carbonate) 450 mg BID PO ; Start 06/22/16 at 09:00; Stop 06/22/16 at 09:00; Status DC [place] Carbonate (Lithobid Cr) 600 mg BID PO Last administered on 07/07/16 08: 58; Start 06/28/16 at 09:00; Stop 07/28/16 at 08:59 Lorazepam (Ativan) 1 mg STAT STAT IM Last administered on 06/26/16 22:46; Start 06/26/16 at 22:30; Stop 06/26/16 at 22:33; Status DC Lorazepam (Ativan) 2 mg Q6HP PRN IM AGITATION; Start 06/27/16 at 10:15; Stop at 10:14; Status Cancel Lorazepam (Ativan) 2 mg Q6HP PRN PO ANXIETY/AGITATION Last administered on 07/01 20:24; Start 06/27/16 at 13:00; Stop 07/10/16 at 12:59 Lorazepam (Ativan) 2 mg STAT STAT IM Last administered on 06/27/16 12:40; Start 06/27/16 at 12:32; Stop 06/27/16 at 12:35; Status DC Lorazepam (Ativan) 2 mg STAT STAT IM Last administered on 06/27/16 21:32; Start 06/27/16 at 21:32; Stop 06/27/16 at 21:35; Status DC Lorazepam (Ativan) 2 mg STAT STAT IM Last administered on 06/29/16 20:41; Start 06/29/16 at 20:10; Stop 06/30/16 at 16:08; Status DC Magnesium Hydroxide (Milk Of Magnesia) 30 ml DAILYPRN PRN PO CONSTIPATION; Start 06/21/16 at 23:00; Stop 07/21/16 at 22:59 Metformin HCl (Glucophage Xr) 1,000 mg QHS PO Last administered on 07/06/16 21: 10; Start 06/21/16 at 21:00; Stop 07/21/16 at 20:59 Miscellaneous (Unresolved Clarification Entry) SEE LABEL COMMENTS UNRESOLVED XX ; Start 07/05/16 at 00:01; Stop 07/05/16 at 14:26; Status DC Multivitamins (Theragram-M) 1 tab DAILY PO Last administered on 07/07/16 08:58 ; Start 06/22/16 at 09:00; Stop 07/22/16 at 08:59 Sertraline HCl (Zoloft) 37.5 mg DAILY PO Last administered on 07/07/16 08:58; Start 06/22/16 at 09:00; Stop 07/22/16 at 08:59 Trazodone HCl (Desyrel) 50 mg QHSP PRN PO INSOMNIA Last administered on 21:52; Start 06/21/16 at 23:00; Stop 07/21/16 at 22:59 Allergies Coded Allergies: Lactose (Unverified Allergy, Unknown, 03/29/16) JAYNE GUZMAN MD July 07, 2016 15:24
[2016-07-07 18:00] VITALS: BP 128/72
[2016-07-07] MEDS: metFORMIN XR 500MG TAB *GLUCOPHAGE XR PO SCH (21:39)
[2016-07-07] MEDS: HALOPERIDOL 5 MG TAB PO PRN (21:39)
[2016-07-08] MEDS: LEVOTHYROXINE 0.075 MG TAB (75 MCG) PO SCH (05:59)
[2016-07-08 06:33] VITALS: BP 131/55
[2016-07-08] MEDS: SERTRALINE HCL 25 MG TABLET PO SCH (09:01)
[2016-07-08] MEDS: lamoTRIgine 100MG TAB PO SCH ×2 (09:01→21:29)
[2016-07-08] MEDS: cloZAPine 100 MG TAB (S0136) PO SCH ×3 (09:01→21:30)
[2016-07-08] MEDS: LITHIUM CARBONATE 300 MG **CR** TAB PO SCH ×2 (09:01→21:30)
[2016-07-08] MEDS: MULTIVITAMINS/MINERALS THERAP 1 TAB PO SCH (09:03)
[2016-07-08] MEDS: cloNIDine 0.1 MG TAB PO SCH ×3 (09:03→21:30)
--- NOTE | 2016-07-08 09:56 | IPNPDOC ---
[facility] Progress Note Progress Note DATE OF SERVICE: 07/08/16 INTERVAL HISTORY: Medication Side effects: Denies medication side effects Behavior: Well behaved, compliant, not aggressive, not violent Group Attendance: Irregular. Sometimes she goes to group and mostly that is when she has been able to have all night sleep as she doesn't feel tired or sedated. She has attended yoga and meditation groups. Psychiatric Symptom change: Less aggressive, less violent, more willing to engage, less defensive, less guarded, less paranoid. Hasn't verbalized suicidal ideation and denies auditory hallucinations today. VITAL SIGNS: See below. NEW TEST RESULTS: See below CURRENT MEDICATIONS: See below. MENTAL STATUS EXAMINATION: General: Alert, cooperative with interview, lying in her bed, eyes closed. Speech: Normal Thought processes: Less irrational, more goal oriented Thought content: Negative for suicidal ideations, she states that she is not hearing voices, negative for homicidal ideations, positive for paranoid delusions but these are less compared to the time of admission. Abstract reasoning, and computation: Poor Description of associations: Not loose Description of abnormal or psychotic thoughts: Delusional ideation, paranoid type, decreased compared to admission Judgment: Poor Insight: Poor Orientation: Partially oriented to time and date, but she is oriented to place and person Recent and remote memory: Poor Attention span and concentration: Poor Fund of knowledge: Unable to assess Mood: "I feel better" Affect: Less labile, less depressed. DIAGNOSES: 1. Schizophrenia paranoid type. 2. Borderline personality disorder. 3. Intellectual disability. ASSESSMENT: Patient has improved, she is motivated to get her personal clothes tomorrow and she knows that she Has to control her impulses and keep a good behavior to be granted that privilege. MANAGEMENT PLAN: Medications: Will continue with current treatment plan because she has being stable on it. Psychotherapy: Will continue to encourage her to attend groups Social: When tried to encourage her to interact more with peers, and will encourage her to use social skills when interacting with people. Misc: None Disposition: Will continue hospitalization at the inpatient mental health unit until [facility] accepts her for long-term treatment TIME SPENT: 20 minutes. Vital Signs Vital Signs Date Time Temp Pulse Resp B/P (MAP) Pulse Ox O2 Delivery O2 Flow Rate FiO2 07/08/16 09:03 131/94 07/08/16 06:33 97.6 70 18 5/3/17 06:18 Room Air Laboratory Data 24H Labs Laboratory Tests 2 07/07/16 17:10: Bedside Glucose (Misc Panel) 104 07/08/16 05:55: Bedside Glucose (Misc Panel) 89 Current Medications Current Medications Acetaminophen (Tylenol Tab) 650 mg Q6HP PRN PO HEADACHE or DISCOMFORT Last administered on 07/06/16 21:15; Start 06/21/16 at 23:00; Stop 07/21/16 at 22:59 Al Hydrox/Mg Hydrox/Simethicone (Mylanta) 30 ml Q4HP PRN PO HEARTBURN/ INDIGESTION; Start 06/21/16 at 23:00; Stop 07/21/16 at 22:59 Clonidine HCl (Catapres) 0.1 mg TID PO Last administered on 07/08/16 09:03; Start 06/21/16 at 21:00; Stop 07/21/16 at 20:59 Clozapine (Clozaril) 50 mg QHS PO Last administered on 06/29/16 21:53; Start 06/21/16 at 21:00; Stop 06/30/16 at 13:55; Status DC Clozapine (Clozaril) 100 mg BID PO ; Start 07/05/16 at 21:00; Stop 07/12/16 at 20: 59; Status UNV Clozapine (Clozaril) 100 mg BID@09,12 PO Last administered on 07/08/16 09:01; Start 06/22/16 at 09:00; Stop 07/12/16 at 08:59 Clozapine (Clozaril) 200 mg QHS PO Last administered on 06/29/16 21:55; Start 06/21/16 at 21:00; Stop 06/30/16 at 13:55; Status DC Clozapine (Clozaril) 200 mg STAT STAT PO Last administered on 07/05/16 15:02; Start 07/05/16 at 14:56; Stop 07/05/16 at 14:59; Status DC Clozapine (Clozaril) 250 mg QHS PO Last administered on 07/07/16 21:40; Start 06/30/16 at 21:00; Stop 07/11/16 at 20:59 Diphenhydramine HCl (Benadryl) 50 mg STAT STAT IM Last administered on 22:47; Start 06/26/16 at 22:30; Stop 06/26/16 at 22:33; Status DC Diphenhydramine HCl (Benadryl) 50 mg STAT STAT IM Last administered on 21:32; Start 06/27/16 at 21:32; Stop 06/27/16 at 21:35; Status DC Diphenhydramine HCl (Benadryl) 100 mg STAT STAT IM Last administered on 12:40; Start 06/27/16 at 12:32; Stop 06/27/16 at 12:35; Status DC Haloperidol (Haldol) 10 mg BID PRN PO AGITATION Last administered on 07/07/16 21:39; Start 06/27/16 at 13:00; Stop 07/27/16 at 12:59 Haloperidol (Haldol) 10 mg STAT STAT IM Last administered on 06/26/16 22:47; Start 06/26/16 at 22:30; Stop 06/26/16 at 22:33; Status DC Haloperidol (Haldol) 10 mg STAT STAT IM Last administered on 06/27/16 12:40; Start 06/27/16 at 12:32; Stop 06/27/16 at 12:35; Status DC Haloperidol (Haldol) 10 mg STAT STAT IM Last administered on 06/27/16 21:32; Start 06/27/16 at 21:32; Stop 06/27/16 at 21:35; Status DC Haloperidol (Haldol) 10 mg STAT STAT IM Last administered on 06/29/16 20:40; Start 06/29/16 at 20:10; Stop 06/29/16 at 20:12; Status DC Home Med (Med Rec Complete!) ASDIRECTED XX ; Start 06/22/16 at 00:30; Stop at 00:30; Status DC Lamotrigine (LaMICtal) 100 mg BID PO Last administered on 07/08/16 09:01; Start 06/21/16 at 21:00; Stop 07/21/16 at 20:59 Levothyroxine Sodium (Synthroid) 0.075 mg DAILY@06 PO Last administered on 05:59; Start 06/22/16 at 06:00; Stop 07/22/16 at 05:59 [place] Carbonate (Eskalith-Cr) 450 mg BID PO Last administered on 06/27/16 09 :16; Start 06/21/16 at 21:00; Stop 06/27/16 at 22:37; Status DC [place] Carbonate ([place] Carbonate) 450 mg BID PO ; Start 06/22/16 at 09:00; Stop 06/22/16 at 09:00; Status DC [place] Carbonate (Lithobid Cr) 600 mg BID PO Last administered on 07/08/16 09: 01; Start 06/28/16 at 09:00; Stop 07/28/16 at 08:59 Lorazepam (Ativan) 1 mg STAT STAT IM Last administered on 06/26/16 22:46; Start 06/26/16 at 22:30; Stop 06/26/16 at 22:33; Status DC Lorazepam (Ativan) 2 mg Q6HP PRN IM AGITATION; Start 06/27/16 at 10:15; Stop at 10:14; Status Cancel Lorazepam (Ativan) 2 mg Q6HP PRN PO ANXIETY/AGITATION Last administered on 07/01 20:24; Start 06/27/16 at 13:00; Stop 07/10/16 at 12:59 Lorazepam (Ativan) 2 mg STAT STAT IM Last administered on 06/27/16 12:40; Start 06/27/16 at 12:32; Stop 06/27/16 at 12:35; Status DC Lorazepam (Ativan) 2 mg STAT STAT IM Last administered on 06/27/16 21:32; Start 06/27/16 at 21:32; Stop 06/27/16 at 21:35; Status DC Lorazepam (Ativan) 2 mg STAT STAT IM Last administered on 06/29/16 20:41; Start 06/29/16 at 20:10; Stop 06/30/16 at 16:08; Status DC Magnesium Hydroxide (Milk Of Magnesia) 30 ml DAILYPRN PRN PO CONSTIPATION; Start 06/21/16 at 23:00; Stop 07/21/16 at 22:59 Metformin HCl (Glucophage Xr) 1,000 mg QHS PO Last administered on 07/07/16 21: 39; Start 06/21/16 at 21:00; Stop 07/21/16 at 20:59 Miscellaneous (Unresolved Clarification Entry) SEE LABEL COMMENTS UNRESOLVED XX ; Start 07/05/16 at 00:01; Stop 07/05/16 at 14:26; Status DC Multivitamins (Theragram-M) 1 tab DAILY PO Last administered on 07/08/16 09:03 ; Start 06/22/16 at 09:00; Stop 07/22/16 at 08:59 Sertraline HCl (Zoloft) 37.5 mg DAILY PO Last administered on 07/08/16 09:01; Start 06/22/16 at 09:00; Stop 07/22/16 at 08:59 Trazodone HCl (Desyrel) 50 mg QHSP PRN PO INSOMNIA Last administered on 21:52; Start 06/21/16 at 23:00; Stop 07/21/16 at 22:59 Allergies Coded Allergies: Lactose (Unverified Allergy, Unknown, 03/29/16) JAYNE GUZMAN MD July 08, 2016 09:56
[2016-07-08 18:00] VITALS: BP 138/80
[2016-07-08] MEDS: HALOPERIDOL 5 MG TAB PO PRN (21:30)
[2016-07-08] MEDS: metFORMIN XR 500MG TAB *GLUCOPHAGE XR PO SCH (21:31)
[2016-07-09] MEDS: LEVOTHYROXINE 0.075 MG TAB (75 MCG) PO SCH (05:51)
[2016-07-09 06:41] VITALS: BP 114/76
[2016-07-09] MEDS: LITHIUM CARBONATE 300 MG **CR** TAB PO SCH ×2 (08:22→21:05)
[2016-07-09] MEDS: cloZAPine 100 MG TAB (S0136) PO SCH ×3 (08:22→21:05)
[2016-07-09] MEDS: SERTRALINE HCL 25 MG TABLET PO SCH (08:22)
[2016-07-09] MEDS: lamoTRIgine 100MG TAB PO SCH ×2 (08:23→21:04)
[2016-07-09] MEDS: MULTIVITAMINS/MINERALS THERAP 1 TAB PO SCH (08:23)
[2016-07-09] MEDS: cloNIDine 0.1 MG TAB PO SCH ×3 (08:23→21:04)
[2016-07-09 18:00] VITALS: BP 134/67
[2016-07-09] MEDS: metFORMIN XR 500MG TAB *GLUCOPHAGE XR PO SCH (21:05)
[2016-07-09] MEDS: HALOPERIDOL 5 MG TAB PO PRN (22:00)
[2016-07-09] MEDS: ACETAMINOPHEN TAB 650MG DOSE (2X325MG) PO PRN (22:01)
[2016-07-10 05:57] VITALS: BP 126/60
[2016-07-10] MEDS: LEVOTHYROXINE 0.075 MG TAB (75 MCG) PO SCH (06:06)
[2016-07-10 06:47] VITALS: BP 126/60
--- NOTE | 2016-07-10 07:16 | IPN ---
DATE: 07/09/2016 Evaluated 20-year-old female with a history of schizophrenia, borderline personality disorder and intellectual disability, who has been very stable for almost 2 weeks with her only angry outburst which was last weekend on 07/04/2016, after a lot of the patients at the inpatient mental health unit were severely agitated, she could not control herself more. She has verbalized that she is willing to go back to [facility] ([facility] in [place], although we had planned to transfer her to [place] for long-term treatment and stabilization. However, because she wants to go back to [facility], I have spoken to her and the elementary school social worker has spoken to her, and she has realized that she wants to talk to them and she wants to continue behaving well. She wants to change in order to live over there under better conditions without having so many conflicts as she has in the past, just like she has them at the inpatient mental health unit. She has been able to control her impulses and today she was granted the privilege to use her clothes because of her good behavior. She was seen in her bedroom, and she was alert, oriented partially only to person and place, not to date and time, dressed in her personal clothes, with fair hygiene and good eye contact. Her mood and affect were brighter, she was not irritable, not labile, not depressed. Her speech was normal. Her thought process was more organized and her thought content was negative for suicidal ideation, negative for homicidal ideation, negative for visual hallucinations and she stated that it has been several days since she last heard voices. Her recent and remote memory are poor, her attention and concentration are poor or impaired. She can focus and concentrate only for short periods of time. Her fund of knowledge is poor, her insight and judgment are improving slowly and her impulse control has also improved. She will continue on the same medications and hopefully if she continues to behave the way that she has been behaving, she will be going back to [facility] in [place] and she will not be going to [facility] for long treatment hospitalization. At this time, the patient is stable. She is not a danger to self or others.
[2016-07-10] MEDS: lamoTRIgine 100MG TAB PO SCH ×2 (09:18→21:35)
[2016-07-10] MEDS: cloZAPine 100 MG TAB (S0136) PO SCH ×3 (09:18→21:35)
[2016-07-10] MEDS: MULTIVITAMINS/MINERALS THERAP 1 TAB PO SCH (09:18)
[2016-07-10] MEDS: cloNIDine 0.1 MG TAB PO SCH ×3 (09:18→21:35)
[2016-07-10] MEDS: LITHIUM CARBONATE 300 MG **CR** TAB PO SCH ×2 (09:19→21:35)
[2016-07-10] MEDS: SERTRALINE HCL 25 MG TABLET PO SCH (09:20)
[2016-07-10 18:00] VITALS: BP 135/68
[2016-07-10] MEDS: ACETAMINOPHEN TAB 650MG DOSE (2X325MG) PO PRN (21:06)
[2016-07-10] MEDS: metFORMIN XR 500MG TAB *GLUCOPHAGE XR PO SCH (21:35)
[2016-07-10] MEDS: LORazepam 2 MG TAB PO PRN (21:56)
[2016-07-11] MEDS: LEVOTHYROXINE 0.075 MG TAB (75 MCG) PO SCH (06:01)
[2016-07-11 06:36] VITALS: BP 126/73
[2016-07-11] MEDS: lamoTRIgine 100MG TAB PO SCH ×2 (09:26→21:25)
[2016-07-11] MEDS: cloNIDine 0.1 MG TAB PO SCH ×3 (09:26→21:30)
[2016-07-11] MEDS: MULTIVITAMINS/MINERALS THERAP 1 TAB PO SCH (09:26)
[2016-07-11] MEDS: cloZAPine 100 MG TAB (S0136) PO SCH ×3 (09:27→21:24)
[2016-07-11] MEDS: SERTRALINE HCL 25 MG TABLET PO SCH (09:27)
[2016-07-11] MEDS: LITHIUM CARBONATE 300 MG **CR** TAB PO SCH ×2 (09:27→21:25)
[2016-07-11 18:00] VITALS: BP 128/71
[2016-07-11] MEDS: metFORMIN XR 500MG TAB *GLUCOPHAGE XR PO SCH (21:25)
[2016-07-11] MEDS: LORazepam 2 MG TAB PO PRN (21:31)
[2016-07-12] MEDS: LEVOTHYROXINE 0.075 MG TAB (75 MCG) PO SCH (06:01)
[2016-07-12 07:00] VITALS: BP 144/96
[2016-07-12] MEDS: MULTIVITAMINS/MINERALS THERAP 1 TAB PO SCH (09:52)
[2016-07-12] MEDS: SERTRALINE HCL 25 MG TABLET PO SCH (09:52)
[2016-07-12] MEDS: cloNIDine 0.1 MG TAB PO SCH ×3 (09:52→21:22)
[2016-07-12] MEDS: lamoTRIgine 100MG TAB PO SCH ×2 (09:52→21:20)
[2016-07-12] MEDS: LITHIUM CARBONATE 300 MG **CR** TAB PO SCH ×2 (09:53→21:21)
[2016-07-12] MEDS: ACETAMINOPHEN TAB 650MG DOSE (2X325MG) PO PRN (12:57)
[2016-07-12] MEDS: cloZAPine 100 MG TAB (S0136) PO SCH ×2 (13:16→21:21)
[2016-07-12 18:00] VITALS: BP 150/89
[2016-07-12] MEDS: metFORMIN XR 500MG TAB *GLUCOPHAGE XR PO SCH (21:21)
--- NOTE | 2016-07-12 21:36 | IPN ---
DATE: 07/12/2016 Evaluation of 20-year-old female with history of paranoid schizophrenia, borderline personality disorder, intellectual disability, who has shown improvement during the past 2 weeks after several days when she became agitated and was coded. This agitation and aggressiveness was mostly due to the separation that she suffered from her mother when she came to visit. Her medications were adjusted and lithium was increased to 600 mg by mouth twice a day. The patient was seen in her room this morning but she was sleeping and then she was seen again this afternoon when she verbalized that she was feeling well, willing to go back to [facility] in [place], willing to make a plan for her and for the [facility] staff. She denied suicidal ideation, homicidal ideation, psychosis. She stated that the last hallucination that she had was when she came in but actually this is not the case because even last week she verbalized hearing voices, although she was never specific as to what the voices were telling her to do. She only said that the voices were telling her lots of stuff. She has adopted a very mature attitude, has been willing to cooperate, and for that reason she was given her personal clothes and shoes back. Her mood and affect are brighter, her eye contact is good, her speech is normal, her thought process is more organized, more coherent. Her thought content is negative for suicidal ideation, negative for homicidal ideation, negative for psychosis. Her insight, judgment, and impulse control have improved. She is partially oriented only to place and person, but not date and time. Her attention span and concentration have improved but they are still poor. Her memory, especially the remote memory, is impaired. ASSESSMENT: Overall, the patient has had a big improvement during the last 2 weeks and since she is willing to go back to [facility] in [place], arrangements are being made for her to followup with them and make a plan for her to go back and live with them. Therefore, she will not be going to [facility]. Will follow her up and keep her under observation for any possible change.
[2016-07-13] MEDS: LEVOTHYROXINE 0.075 MG TAB (75 MCG) PO SCH (05:43)
[2016-07-13 06:26] VITALS: BP 123/56
[2016-07-13] MEDS: lamoTRIgine 100MG TAB PO SCH ×2 (08:12→21:26)
[2016-07-13] MEDS: LITHIUM CARBONATE 300 MG **CR** TAB PO SCH ×2 (08:12→21:26)
[2016-07-13] MEDS: cloZAPine 100 MG TAB (S0136) PO SCH ×3 (08:13→21:26)
[2016-07-13] MEDS: MULTIVITAMINS/MINERALS THERAP 1 TAB PO SCH (08:13)
[2016-07-13] MEDS: SERTRALINE HCL 25 MG TABLET PO SCH (08:13)
[2016-07-13] MEDS: cloNIDine 0.1 MG TAB PO SCH ×3 (08:13→21:28)
--- NOTE | 2016-07-13 12:31 | MHIPNPDOC ---
[facility] Progress Note Progress Note DATE OF SERVICE: 07/13/16 INTERVAL HISTORY: Medication Side effects: Denies Behavior: Calmed, cooperative, not aggressive, not violent Group Attendance: Irregular Psychiatric Symptom change: Has not displayed any aggressive or violent behavior. Her mood and affect are brighter VITAL SIGNS: See below. NEW TEST RESULTS: See below CURRENT MEDICATIONS: See below. MENTAL STATUS EXAMINATION: General: Alert, laying in bed, good eye contact, cooperative Speech: Normal Thought processes: More organized Thought content: Negative for suicidal thoughts, negative for homicidal thoughts , negative for auditory or visual hallucinations. Abstract reasoning, and computation: Poor Description of associations: Not loose Description of abnormal or psychotic thoughts: Not present Judgment: Improved Insight: Improved Orientation: Oriented to place and person, not to date and time Recent and remote memory: Limited Attention span and concentration: Limited Fund of knowledge: Fair Mood: I'm okay Affect: Brighter, not irritable, not labile. DIAGNOSES: 1. Schizophrenia paranoid type. 2. And borderline personality disorder. 3. Intellectual disability. ASSESSMENT:Patient continues to be stable. TLS staff will meet with her and SW on to make a behavioral plan for her. If she does well with them and if they agree, she will be discharged that day. MANAGEMENT PLAN: Medications:Continue with current medications Psychotherapy:Will continue to encourage her to attend groups. Social: She will be encouraged to interact with peers. Misc: None Disposition: Will continue at the [facility] but she will meet with [facility] from [place] TIME SPENT: 15 minutes. Vital Signs Vital Signs Date Time Temp Pulse Resp B/P (MAP) Pulse Ox O2 Delivery O2 Flow Rate FiO2 07/13/16 08:13 137/68 07/13/16 06:26 97.4 75 16 07/10/16 05:57 Room Air Laboratory Data 24H Labs Laboratory Tests 2 07/12/16 16:29: Bedside Glucose (Misc Panel) 102 07/13/16 05:46: Bedside Glucose (Misc Panel) 94 Current Medications Current Medications Acetaminophen (Tylenol Tab) 650 mg Q6HP PRN PO HEADACHE or DISCOMFORT Last administered on 07/12/16t 12:57; Start 06/21/16 at 23:00; Stop 07/21/16 at 22:59 Al Hydrox/Mg Hydrox/Simethicone (Mylanta) 30 ml Q4HP PRN PO HEARTBURN/ INDIGESTION; Start 06/21/16 at 23:00; Stop 07/21/16 at 22:59 Clonidine HCl (Catapres) 0.1 mg TID PO Last administered on 07/13/16 08:13; Start 06/21/16 at 21:00; Stop 07/21/16 at 20:59 Clozapine (Clozaril) 50 mg QHS PO Last administered on 06/29/16 21:53; Start 06/21/16 at 21:00; Stop 06/30/16 at 13:55; Status DC Clozapine (Clozaril) 100 mg BID PO ; Start 07/05/16 at 21:00; Stop 07/12/16 at 20: 59; Status UNV Clozapine (Clozaril) 100 mg BID@,12 PO Last administered on 07/11/16 11:38; Start 06/22/16 at 09:00; Stop 07/12/16 at 08:59; Status DC Clozapine (Clozaril) 100 mg BID@,12 PO Last administered on 07/13/16 12:10; Start 07/12/16 at 12:00; Stop 07/19/16 at 11:59 Clozapine (Clozaril) 200 mg QHS PO Last administered on 06/29/16 21:55; Start 06/21/16 at 21:00; Stop 06/30/16 at 13:55; Status DC Clozapine (Clozaril) 200 mg STAT STAT PO Last administered on 07/05/16 15:02; Start 07/05/16 at 14:56; Stop 07/05/16 at 14:59; Status DC Clozapine (Clozaril) 250 mg QHS PO Last administered on 07/12/16 21:21; Start 06/30/16 at 21:00; Stop 07/17/16 at 20:59 Diphenhydramine HCl (Benadryl) 50 mg STAT STAT IM Last administered on 22:47; Start 06/26/16 at 22:30; Stop 06/26/16 at 22:33; Status DC Diphenhydramine HCl (Benadryl) 50 mg STAT STAT IM Last administered on 21:32; Start 06/27/16 at 21:32; Stop 06/27/16 at 21:35; Status DC Diphenhydramine HCl (Benadryl) 100 mg STAT STAT IM Last administered on 12:40; Start 06/27/16 at 12:32; Stop 06/27/16 at 12:35; Status DC Haloperidol (Haldol) 10 mg BID PRN PO AGITATION Last administered on 07/09/16 22:00; Start 06/27/16 at 13:00; Stop 07/27/16 at 12:59 Haloperidol (Haldol) 10 mg STAT STAT IM Last administered on 06/26/16 22:47; Start 06/26/16 at 22:30; Stop 06/26/16 at 22:33; Status DC Haloperidol (Haldol) 10 mg STAT STAT IM Last administered on 06/27/16 12:40; Start 06/27/16 at 12:32; Stop 06/27/16 at 12:35; Status DC Haloperidol (Haldol) 10 mg STAT STAT IM Last administered on 06/27/16 21:32; Start 06/27/16 at 21:32; Stop 06/27/16 at 21:35; Status DC Haloperidol (Haldol) 10 mg STAT STAT IM Last administered on 06/29/16 20:40; Start 06/29/16 at 20:10; Stop 06/29/16 at 20:12; Status DC Home Med (Med Rec Complete!) ASDIRECTED XX ; Start 06/22/16 at 00:30; Stop at 00:30; Status DC Lamotrigine (LaMICtal) 100 mg BID PO Last administered on 07/13/16 08:12; Start 06/21/16 at 21:00; Stop 07/21/16 at 20:59 Levothyroxine Sodium (Synthroid) 0.075 mg DAILY@06 PO Last administered on 05:43; Start 06/22/16 at 06:00; Stop 07/22/16 at 05:59 [place] Carbonate (Eskalith-Cr) 450 mg BID PO Last administered on 06/27/16 09 :16; Start 06/21/16 at 21:00; Stop 06/27/16 at 22:37; Status DC [place] Carbonate ([place] Carbonate) 450 mg BID PO ; Start 06/22/16 at 09:00; Stop 06/22/16 at 09:00; Status DC [place] Carbonate (Lithobid Cr) 600 mg BID PO Last administered on 07/13/16 08: 12; Start 06/28/16 at 09:00; Stop 07/28/16 at 08:59 Lorazepam (Ativan) 1 mg STAT STAT IM Last administered on 06/26/16 22:46; Start 06/26/16 at 22:30; Stop 06/26/16 at 22:33; Status DC Lorazepam (Ativan) 2 mg Q6HP PRN IM AGITATION; Start 06/27/16 at 10:15; Stop at 10:14; Status Cancel Lorazepam (Ativan) 2 mg Q6HP PRN PO ANXIETY/AGITATION Last administered on 21:31; Start 06/27/16 at 13:00; Stop 07/16/16 at 12:59 Lorazepam (Ativan) 2 mg STAT STAT IM Last administered on 06/27/16 12:40; Start 06/27/16 at 12:32; Stop 06/27/16 at 12:35; Status DC Lorazepam (Ativan) 2 mg STAT STAT IM Last administered on 06/27/16 21:32; Start 06/27/16 at 21:32; Stop 06/27/16 at 21:35; Status DC Lorazepam (Ativan) 2 mg STAT STAT IM Last administered on 06/29/16 20:41; Start 06/29/16 at 20:10; Stop 06/30/16 at 16:08; Status DC Magnesium Hydroxide (Milk Of Magnesia) 30 ml DAILYPRN PRN PO CONSTIPATION; Start 06/21/16 at 23:00; Stop 07/21/16 at 22:59 Metformin HCl (Glucophage Xr) 1,000 mg QHS PO Last administered on 07/12/16 21: 21; Start 06/21/16 at 21:00; Stop 07/21/16 at 20:59 Miscellaneous (Unresolved Clarification Entry) SEE LABEL COMMENTS UNRESOLVED XX ; Start 07/05/16 at 00:01; Stop 07/05/16 at 14:26; Status DC Miscellaneous (Unresolved Clarification Entry) SEE LABEL COMMENTS UNRESOLVED XX ; Start 07/12/16 at 00:01; Stop 07/12/16 at 13:04; Status DC Multivitamins (Theragram-M) 1 tab DAILY PO Last administered on 07/13/16 08:13 ; Start 06/22/16 at 09:00; Stop 07/22/16 at 08:59 Sertraline HCl (Zoloft) 37.5 mg DAILY PO Last administered on 07/13/16 08:13; Start 06/22/16 at 09:00; Stop 07/22/16 at 08:59 Trazodone HCl (Desyrel) 50 mg QHSP PRN PO INSOMNIA Last administered on 21:52; Start 06/21/16 at 23:00; Stop 07/21/16 at 22:59 Allergies Coded Allergies: Lactose (Unverified Allergy, Unknown, 03/29/16) JAYNE GUZMAN MD July 13, 2016 12:31
[2016-07-13 18:30] VITALS: BP 126/58
[2016-07-13] MEDS: ACETAMINOPHEN TAB 650MG DOSE (2X325MG) PO PRN (20:21)
[2016-07-13] MEDS: metFORMIN XR 500MG TAB *GLUCOPHAGE XR PO SCH (21:26)
[2016-07-14 06:13] VITALS: BP 107/56
[2016-07-14] MEDS: LEVOTHYROXINE 0.075 MG TAB (75 MCG) PO SCH (06:30)
[2016-07-14] MEDS: SERTRALINE HCL 25 MG TABLET PO SCH (08:09)
[2016-07-14] MEDS: LITHIUM CARBONATE 300 MG **CR** TAB PO SCH ×2 (08:10→21:19)
[2016-07-14] MEDS: cloZAPine 100 MG TAB (S0136) PO SCH ×3 (08:14→21:20)
[2016-07-14] MEDS: cloNIDine 0.1 MG TAB PO SCH ×3 (08:14→21:19)
[2016-07-14] MEDS: MULTIVITAMINS/MINERALS THERAP 1 TAB PO SCH (08:14)
[2016-07-14] MEDS: lamoTRIgine 100MG TAB PO SCH ×2 (08:14→21:19)
--- NOTE | 2016-07-14 11:31 | MHIPNPDOC ---
[facility] Progress Note Progress Note DATE OF SERVICE: 07/14/16 INTERVAL HISTORY: Medication Side effects: Denies Behavior: Pleasant, not aggressive, not violent. Group Attendance: Irregular Psychiatric Symptom change: She hasn't had any aggressive outbursts in 2 weeks. She has been compliant with medications, has had a pleasant attitude to peers and staff, has been able to control her impulses. There is no suicidal or homicidal ideation, and she denies psychotic thoughts. VITAL SIGNS: See below. NEW TEST RESULTS: See below CURRENT MEDICATIONS: See below. MENTAL STATUS EXAMINATION: General: Alert,, pleasant, cooperative, laying in bed with good eye contact Speech: And normal, soft spoken Thought processes: Improved. Thought process is disorganized at this time. Thought content: Negative for homicidal ideation, negative for suicidal ideation , negative for delusions, negative for auditory or visual hallucinations. Abstract reasoning, and computation: Fair Description of associations: No loose Description of abnormal or psychotic thoughts: Not present at this time Judgment: Improved Insight: Improved Orientation: Oriented 3 Recent and remote memory: Recent memory is fair, remote memory is poor. Attention span and concentration: Improved Fund of knowledge: Fair Mood: "I feel much better" Affect: Brighter, euthymic DIAGNOSES: 1. Paranoid schizophrenia. 2. And borderline personality disorder. 3. Intellectual disability. ASSESSMENT: Patient is stable enough to be discharged. Moreover she will attend a meeting with [facility] staff and social security assessor to make a plan for her future living [facility]. She could be discharged tomorrow or on Tuesday depending on how this meeting goals. MANAGEMENT PLAN: Medications: Continue with current medications Psychotherapy: Continue to encourage her to attend groups Social: Continued to encouraged to interact more with peers and staff Misc: None Disposition: She will be discharged in 1 or 2 days and will return to [facility] in [place]. TIME SPENT: 15 minutes. Vital Signs Vital Signs Date Time Temp Pulse Resp B/P (MAP) Pulse Ox O2 Delivery O2 Flow Rate FiO2 07/14/16 08:14 128/62 07/14/16 06:13 97.2 72 16 Room Air Laboratory Data 24H Labs Laboratory Tests 2 07/13/16 16:56: Bedside Glucose (Misc Panel) 144H 07/14/16 07:16: Bedside Glucose (Misc Panel) 94 Current Medications Current Medications Acetaminophen (Tylenol Tab) 650 mg Q6HP PRN PO HEADACHE or DISCOMFORT Last administered on 5/9/17at 20:21; Start 06/21/16 at 23:00; Stop 07/21/16 at 22:59 Al Hydrox/Mg Hydrox/Simethicone (Mylanta) 30 ml Q4HP PRN PO HEARTBURN/ INDIGESTION; Start 06/21/16 at 23:00; Stop 07/21/16 at 22:59 Clonidine HCl (Catapres) 0.1 mg TID PO Last administered on 07/14/16 08:14; Start 06/21/16 at 21:00; Stop 07/21/16 at 20:59 Clozapine (Clozaril) 50 mg QHS PO Last administered on 06/29/16 21:53; Start 06/21/16 at 21:00; Stop 06/30/16 at 13:55; Status DC Clozapine (Clozaril) 100 mg BID PO ; Start 07/05/16 at 21:00; Stop 07/12/16 at 20: 59; Status UNV Clozapine (Clozaril) 100 mg BID@,12 PO Last administered on 07/11/16 11:38; Start 06/22/16 at 09:00; Stop 07/12/16 at 08:59; Status DC Clozapine (Clozaril) 100 mg BID@09,12 PO Last administered on 07/14/16 08:14; Start 07/12/16 at 12:00; Stop 07/19/16 at 11:59 Clozapine (Clozaril) 200 mg QHS PO Last administered on 06/29/16 21:55; Start 06/21/16 at 21:00; Stop 06/30/16 at 13:55; Status DC Clozapine (Clozaril) 200 mg STAT STAT PO Last administered on 07/05/16 15:02; Start 07/05/16 at 14:56; Stop 07/05/16 at 14:59; Status DC Clozapine (Clozaril) 250 mg QHS PO Last administered on 07/13/16 21:26; Start 06/30/16 at 21:00; Stop 07/17/16 at 20:59 Diphenhydramine HCl (Benadryl) 50 mg STAT STAT IM Last administered on 22:47; Start 06/26/16 at 22:30; Stop 06/26/16 at 22:33; Status DC Diphenhydramine HCl (Benadryl) 50 mg STAT STAT IM Last administered on 21:32; Start 06/27/16 at 21:32; Stop 06/27/16 at 21:35; Status DC Diphenhydramine HCl (Benadryl) 100 mg STAT STAT IM Last administered on 12:40; Start 06/27/16 at 12:32; Stop 06/27/16 at 12:35; Status DC Haloperidol (Haldol) 10 mg BID PRN PO AGITATION Last administered on 07/09/16 22:00; Start 06/27/16 at 13:00; Stop 07/27/16 at 12:59 Haloperidol (Haldol) 10 mg STAT STAT IM Last administered on 06/26/16 22:47; Start 06/26/16 at 22:30; Stop 06/26/16 at 22:33; Status DC Haloperidol (Haldol) 10 mg STAT STAT IM Last administered on 06/27/16 12:40; Start 06/27/16 at 12:32; Stop 06/27/16 at 12:35; Status DC Haloperidol (Haldol) 10 mg STAT STAT IM Last administered on 06/27/16 21:32; Start 06/27/16 at 21:32; Stop 06/27/16 at 21:35; Status DC Haloperidol (Haldol) 10 mg STAT STAT IM Last administered on 06/29/16 20:40; Start 06/29/16 at 20:10; Stop 06/29/16 at 20:12; Status DC Home Med (Med Rec Complete!) ASDIRECTED XX ; Start 06/22/16 at 00:30; Stop at 00:30; Status DC Lamotrigine (LaMICtal) 100 mg BID PO Last administered on 07/14/16 08:14; Start 06/21/16 at 21:00; Stop 07/21/16 at 20:59 Levothyroxine Sodium (Synthroid) 0.075 mg DAILY@06 PO Last administered on 07/14 06:30; Start 06/22/16 at 06:00; Stop 07/22/16 at 05:59 Show Low Carbonate (Eskalith-Cr) 450 mg BID PO Last administered on 06/27/16 09 :16; Start 06/21/16 at 21:00; Stop 06/27/16 at 22:37; Status DC Show Low Carbonate (Show Low Carbonate) 450 mg BID PO ; Start 06/22/16 at 09:00; Stop 06/22/16 at 09:00; Status DC Show Low Carbonate (Lithobid Cr) 600 mg BID PO Last administered on 07/14/16 08 :10; Start 06/28/16 at 09:00; Stop 07/28/16 at 08:59 Lorazepam (Ativan) 1 mg STAT STAT IM Last administered on 06/26/16 22:46; Start 06/26/16 at 22:30; Stop 06/26/16 at 22:33; Status DC Lorazepam (Ativan) 2 mg Q6HP PRN IM AGITATION; Start 06/27/16 at 10:15; Stop at 10:14; Status Cancel Lorazepam (Ativan) 2 mg Q6HP PRN PO ANXIETY/AGITATION Last administered on 21:31; Start 06/27/16 at 13:00; Stop 07/16/16 at 12:59 Lorazepam (Ativan) 2 mg STAT STAT IM Last administered on 06/27/16 12:40; Start 06/27/16 at 12:32; Stop 06/27/16 at 12:35; Status DC Lorazepam (Ativan) 2 mg STAT STAT IM Last administered on 06/27/16 21:32; Start 06/27/16 at 21:32; Stop 06/27/16 at 21:35; Status DC Lorazepam (Ativan) 2 mg STAT STAT IM Last administered on 06/29/16 20:41; Start 06/29/16 at 20:10; Stop 06/30/16 at 16:08; Status DC Magnesium Hydroxide (Milk Of Magnesia) 30 ml DAILYPRN PRN PO CONSTIPATION; Start 06/21/16 at 23:00; Stop 07/21/16 at 22:59 Metformin HCl (Glucophage Xr) 1,000 mg QHS PO Last administered on 07/13/16 21: 26; Start 06/21/16 at 21:00; Stop 07/21/16 at 20:59 Miscellaneous (Unresolved Clarification Entry) SEE LABEL COMMENTS UNRESOLVED XX ; Start 07/05/16 at 00:01; Stop 07/05/16 at 14:26; Status DC Miscellaneous (Unresolved Clarification Entry) SEE LABEL COMMENTS UNRESOLVED XX ; Start 07/12/16 at 00:01; Stop 07/12/16 at 13:04; Status DC Multivitamins (Theragram-M) 1 tab DAILY PO Last administered on 07/14/16 08:14 ; Start 06/22/16 at 09:00; Stop 07/22/16 at 08:59 Sertraline HCl (Zoloft) 37.5 mg DAILY PO Last administered on 07/14/16 08:09; Start 06/22/16 at 09:00; Stop 07/22/16 at 08:59 Trazodone HCl (Desyrel) 50 mg QHSP PRN PO INSOMNIA Last administered on 21:52; Start 06/21/16 at 23:00; Stop 07/21/16 at 22:59 Allergies Coded Allergies: Lactose (Unverified Allergy, Unknown, 03/29/16) JAYNE GUZMAN MD July 14, 2016 11:31
[2016-07-14] MEDS: HALOPERIDOL 5 MG TAB PO PRN (17:06)
[2016-07-14 18:00] VITALS: BP 153/80
[2016-07-14] MEDS: metFORMIN XR 500MG TAB *GLUCOPHAGE XR PO SCH (21:20)
[2016-07-15] MEDS: LEVOTHYROXINE 0.075 MG TAB (75 MCG) PO SCH (06:06)
[2016-07-15 06:33] VITALS: BP 136/83
[2016-07-15] MEDS: lamoTRIgine 100MG TAB PO SCH ×2 (08:07→20:27)
[2016-07-15] MEDS: LITHIUM CARBONATE 300 MG **CR** TAB PO SCH ×2 (08:07→20:28)
[2016-07-15] MEDS: MULTIVITAMINS/MINERALS THERAP 1 TAB PO SCH (08:07)
[2016-07-15] MEDS: SERTRALINE HCL 25 MG TABLET PO SCH (08:07)
[2016-07-15] MEDS: cloZAPine 100 MG TAB (S0136) PO SCH ×3 (08:08→20:27)
[2016-07-15] MEDS: cloNIDine 0.1 MG TAB PO SCH ×3 (08:08→20:27)
--- NOTE | 2016-07-15 15:01 | MHIPNPDOC ---
[facility] Progress Note Progress Note DATE OF SERVICE: 07/15/16 INTERVAL HISTORY: Medication Side effects: He says he slept really well last night. Denies medication side effects Behavior: More active, less withdrawn although he continues to be guarded and avoidant Group Attendance: Has attended groups Psychiatric Symptom change: Increased energy, less guarded, less paranoid VITAL SIGNS: See below. NEW TEST RESULTS: See below CURRENT MEDICATIONS: See below. MENTAL STATUS EXAMINATION: General: Alert, dressed in hospital clothes, has shaved his head, poor eye contact Speech: Tangential, speaks in broken sentences Thought processes: Disorganized Thought content: Positive for paranoia, persecutory delusions, positive for auditory and visual hallucinations. Negative for suicidal ideation or homicidal ideation. Abstract reasoning, and computation: Poor Description of associations: Loose Description of abnormal or psychotic thoughts: Paranoid delusions, visual and auditory hallucinations Judgment: Poor Insight: Poor Orientation: Oriented to place and person only Recent and remote memory: Impaired Attention span and concentration: Poor Fund of knowledge: Unable to assess Mood: Anxious Affect: Anxious, depressed, slightly irritable, guarded DIAGNOSES: 1. Schizophrenia, paranoid type. 2. Major depressive disorder. ASSESSMENT: Patient says that he slept all night and that he slept well and that probably has something to do with the increasing his medications and because he is taking Ativan 1 mg by mouth 3 times a day. Will continue to monitor to evaluate improvement. MANAGEMENT PLAN: Medications: As seen below Psychotherapy: Will continue to encourage him to attend groups Social: Will encourage him to be more engaging with peers and staff Misc: None Disposition: Will continue to be hospitalized at the inpatient mental health unit. Pending transfer to [facility] TIME SPENT: 15 minutes. Vital Signs Vital Signs Date Time Temp Pulse Resp B/P (MAP) Pulse Ox O2 Delivery O2 Flow Rate FiO2 07/15/16 08:08 136/72 07/15/16 06:33 96.7 78 16 07/14/16 18:00 Room Air Laboratory Data 24H Labs Laboratory Tests 2 07/14/16 16:55: Bedside Glucose (Misc Panel) 81 07/15/16 08:03: Bedside Glucose (Misc Panel) 123H Current Medications Current Medications Acetaminophen (Tylenol Tab) 650 mg Q6HP PRN PO HEADACHE or DISCOMFORT Last administered on 07/13/16t 20:21; Start 06/21/16 at 23:00; Stop 07/21/16 at 22:59 Al Hydrox/Mg Hydrox/Simethicone (Mylanta) 30 ml Q4HP PRN PO HEARTBURN/ INDIGESTION; Start 06/21/16 at 23:00; Stop 07/21/16 at 22:59 Clonidine HCl (Catapres) 0.1 mg TID PO Last administered on 07/15/16 08:08; Start 06/21/16 at 21:00; Stop 07/21/16 at 20:59 Clozapine (Clozaril) 50 mg QHS PO Last administered on 06/29/16 21:53; Start 06/21/16 at 21:00; Stop 06/30/16 at 13:55; Status DC Clozapine (Clozaril) 100 mg BID PO ; Start 07/05/16 at 21:00; Stop 07/12/16 at 20: 59; Status UNV Clozapine (Clozaril) 100 mg BID@,12 PO Last administered on 07/11/16 11:38; Start 06/22/16 at 09:00; Stop 07/12/16 at 08:59; Status DC Clozapine (Clozaril) 100 mg BID@09,12 PO Last administered on 07/15/16 12:16; Start 07/12/16 at 12:00; Stop 07/19/16 at 11:59 Clozapine (Clozaril) 200 mg QHS PO Last administered on 06/29/16 21:55; Start 06/21/16 at 21:00; Stop 06/30/16 at 13:55; Status DC Clozapine (Clozaril) 200 mg STAT STAT PO Last administered on 07/05/16 15:02; Start 07/05/16 at 14:56; Stop 07/05/16 at 14:59; Status DC Clozapine (Clozaril) 250 mg QHS PO Last administered on 07/14/16 21:20; Start 06/30/16 at 21:00; Stop 07/17/16 at 20:59 Diphenhydramine HCl (Benadryl) 50 mg STAT STAT IM Last administered on 22:47; Start 06/26/16 at 22:30; Stop 06/26/16 at 22:33; Status DC Diphenhydramine HCl (Benadryl) 50 mg STAT STAT IM Last administered on 21:32; Start 06/27/16 at 21:32; Stop 06/27/16 at 21:35; Status DC Diphenhydramine HCl (Benadryl) 100 mg STAT STAT IM Last administered on 12:40; Start 06/27/16 at 12:32; Stop 06/27/16 at 12:35; Status DC Haloperidol (Haldol) 10 mg BID PRN PO AGITATION Last administered on 07/14/16 17:06; Start 06/27/16 at 13:00; Stop 07/27/16 at 12:59 Haloperidol (Haldol) 10 mg STAT STAT IM Last administered on 06/26/16 22:47; Start 06/26/16 at 22:30; Stop 06/26/16 at 22:33; Status DC Haloperidol (Haldol) 10 mg STAT STAT IM Last administered on 06/27/16 12:40; Start 06/27/16 at 12:32; Stop 06/27/16 at 12:35; Status DC Haloperidol (Haldol) 10 mg STAT STAT IM Last administered on 06/27/16 21:32; Start 06/27/16 at 21:32; Stop 06/27/16 at 21:35; Status DC Haloperidol (Haldol) 10 mg STAT STAT IM Last administered on 06/29/16 20:40; Start 06/29/16 at 20:10; Stop 06/29/16 at 20:12; Status DC Home Med (Med Rec Complete!) ASDIRECTED XX ; Start 06/22/16 at 00:30; Stop at 00:30; Status DC Lamotrigine (LaMICtal) 100 mg BID PO Last administered on 07/15/16 08:07; Start 06/21/16 at 21:00; Stop 07/21/16 at 20:59 Levothyroxine Sodium (Synthroid) 0.075 mg DAILY@06 PO Last administered on 07/15 06:06; Start 06/22/16 at 06:00; Stop 07/22/16 at 05:59 [place] Carbonate (Eskalith-Cr) 450 mg BID PO Last administered on 06/27/16 09 :16; Start 06/21/16 at 21:00; Stop 06/27/16 at 22:37; Status DC [place] Carbonate ([place] Carbonate) 450 mg BID PO ; Start 06/22/16 at 09:00; Stop 06/22/16 at 09:00; Status DC [place] Carbonate (Lithobid Cr) 600 mg BID PO Last administered on 07/15/16 08 :07; Start 06/28/16 at 09:00; Stop 07/28/16 at 08:59 Lorazepam (Ativan) 1 mg STAT STAT IM Last administered on 06/26/16 22:46; Start 06/26/16 at 22:30; Stop 06/26/16 at 22:33; Status DC Lorazepam (Ativan) 2 mg Q6HP PRN IM AGITATION; Start 06/27/16 at 10:15; Stop at 10:14; Status Cancel Lorazepam (Ativan) 2 mg Q6HP PRN PO ANXIETY/AGITATION Last administered on 21:31; Start 06/27/16 at 13:00; Stop 07/16/16 at 12:59 Lorazepam (Ativan) 2 mg STAT STAT IM Last administered on 06/27/16 12:40; Start 06/27/16 at 12:32; Stop 06/27/16 at 12:35; Status DC Lorazepam (Ativan) 2 mg STAT STAT IM Last administered on 06/27/16 21:32; Start 06/27/16 at 21:32; Stop 06/27/16 at 21:35; Status DC Lorazepam (Ativan) 2 mg STAT STAT IM Last administered on 06/29/16 20:41; Start 06/29/16 at 20:10; Stop 06/30/16 at 16:08; Status DC Magnesium Hydroxide (Milk Of Magnesia) 30 ml DAILYPRN PRN PO CONSTIPATION; Start 06/21/16 at 23:00; Stop 07/21/16 at 22:59 Metformin HCl (Glucophage Xr) 1,000 mg QHS PO Last administered on 07/14/16 21 :20; Start 06/21/16 at 21:00; Stop 07/21/16 at 20:59 Miscellaneous (Unresolved Clarification Entry) SEE LABEL COMMENTS UNRESOLVED XX ; Start 07/05/16 at 00:01; Stop 07/05/16 at 14:26; Status DC Miscellaneous (Unresolved Clarification Entry) SEE LABEL COMMENTS UNRESOLVED XX ; Start 07/12/16 at 00:01; Stop 07/12/16 at 13:04; Status DC Multivitamins (Theragram-M) 1 tab DAILY PO Last administered on 07/15/16 08:07 ; Start 06/22/16 at 09:00; Stop 07/22/16 at 08:59 Sertraline HCl (Zoloft) 37.5 mg DAILY PO Last administered on 07/15/16 08:07; Start 06/22/16 at 09:00; Stop 07/22/16 at 08:59 Trazodone HCl (Desyrel) 50 mg QHSP PRN PO INSOMNIA Last administered on 21:52; Start 06/21/16 at 23:00; Stop 07/21/16 at 22:59 Allergies Coded Allergies: Lactose (Unverified Allergy, Unknown, 03/29/16) JAYNE GUZMAN MD July 15, 2016 15:01
[2016-07-15] MEDS ORDERED: LITH30TASA PO (16:13)
[2016-07-15] MEDS ORDERED: CLOZ100T2 PO ×2 (16:13)
[2016-07-15] MEDS ORDERED: TRAZO50TA PO (16:13)
[2016-07-15] MEDS ORDERED: HALO5TA PO (16:13)
[2016-07-15] MEDS: HALOPERIDOL 5 MG TAB PO PRN (17:50)
[2016-07-15 18:00] VITALS: BP 131/72
[2016-07-15] MEDS: metFORMIN XR 500MG TAB *GLUCOPHAGE XR PO SCH (20:27)
[2016-07-16] MEDS: LEVOTHYROXINE 0.075 MG TAB (75 MCG) PO SCH (06:06)
[2016-07-16 06:14] VITALS: BP 122/65
[2016-07-16] MEDS: cloZAPine 100 MG TAB (S0136) PO SCH (08:04)
[2016-07-16] MEDS: MULTIVITAMINS/MINERALS THERAP 1 TAB PO SCH (08:04)
[2016-07-16 08:05] VITALS: BP 122/65
[2016-07-16] MEDS: lamoTRIgine 100MG TAB PO SCH (08:05)
[2016-07-16] MEDS: SERTRALINE HCL 25 MG TABLET PO SCH (08:05)
[2016-07-16] MEDS: cloNIDine 0.1 MG TAB PO SCH (08:05)
[2016-07-16] MEDS: LITHIUM CARBONATE 300 MG **CR** TAB PO SCH (08:05)
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
== END 2016-07-16 11:30 | disposition home or self-care (01) | DRG 750 ==
LOC: M ED 21:57 → M ED INP 22:31 → M PSY 23:40
PROVIDERS: ADMIT Psychiatry & Neurology Psychiatry; ATTEND Psychiatry & Neurology Psychiatry
DX: F20.0 Paranoid schizophrenia (principal); F43.21 Adjustment disorder with depressed mood; E66.9 Obesity, unspecified; E03.9 Hypothyroidism, unspecified; F70 Mild intellectual disabilities; E73.9 Lactose intolerance, unspecified; E11.9 Type 2 diabetes mellitus without complications; Z79.899 Other long term (current) drug therapy; Z79.84 Long term (current) use of oral hypoglycemic drugs; F60.3 Borderline personality disorder; Z91.14 Patient's other noncompliance with medication regimen

== ENCOUNTER → 2016-07-19 | Outpatient (CLI) | payer MEDICAID, OTHER ==
[~2016-07-19] MED LIST changes: +CLOZ100T2 PO; +HALO5TA PO; +LITH30TASA PO; +TRAZO50TA PO
== END ==
LOC: M LAB 13:43
PROVIDERS: ATTEND Psychiatry & Neurology Psychiatry
DX: Z79.899 Other long term (current) drug therapy (principal)

== ENCOUNTER → 2016-07-30 | Outpatient (CLI) | payer OTHER ==
[2016-07-30 15:08] LABS: BASO % 0.5 % (0.0-1.0); EOS % 0.1 % (0.0-3.0); LYMPH # 3.2 K/mm3 (1.5-6.5); MEAN CORPUSCULAR HEMOGLOBIN 30.9 pg (27.0-33.0); MEAN CORPUSCULAR HGB CONC 33.4 g/dl (32.0-36.5); MEAN CORPUSCULAR VOLUME 92.5 fl (80.0-96.0); MONO # 0.5 K/mm3 (0.0-0.8); MONO % 4.8 % (0.0-5.0); NEUTROPHILS # 5.5 K/mm3 (1.8-7.7); NEUTROPHILS % 58.5 % (36.0-66.0); RED CELL DISTRIBUTION WIDTH 12.9 % (11.5-14.5); WHITE BLOOD COUNT 9.5 K/mm3 (4.0-10.0)
== END ==
LOC: M LAB 14:44
PROVIDERS: ATTEND Nurse Practitioner Psychiatric/Mental Health
DX: Z79.899 Other long term (current) drug therapy (principal)

== ENCOUNTER 2016-09-13 22:01 | Emergency (ER) | payer OTHER ==
[~2016-09-13 22:01] MED LIST changes: +LITH300T PO; -LITH30TASA PO
[2016-09-13 22:15] VITALS: BP 133/83
== END 2016-09-13 23:01 | disposition home or self-care (01) ==
LOC: M ED 22:01
DX: R45.4 Irritability and anger (principal); F20.9 Schizophrenia, unspecified

== ENCOUNTER 2016-09-15 18:38 | Inpatient (IN) | payer MEDICAID, OTHER ==
[~2016-09-15] VITALS: Ht 152.4 cm; Wt 102.7 kg
[2016-09-15 19:47] LABS: MEAN CORPUSCULAR HEMOGLOBIN 31.1 pg (27.0-33.0); MEAN CORPUSCULAR HGB CONC 34.1 g/dl (32.0-36.5); MEAN CORPUSCULAR VOLUME 91.3 fl (80.0-96.0); RED CELL DISTRIBUTION WIDTH 12.2 % (11.5-14.5)
[2016-09-15 20:04] LABS: CONTROL LINE HCG INT CTR LINE PRESENT
[2016-09-15 20:26] LABS: ALBUMIN 3.8 GM/DL (3.2-5.2); ALBUMIN/GLOBULIN RATIO 1.15 (1.00-1.93); ALKALINE PHOSPHATASE 82 U/L (45-117); ALT/SGPT 19 U/L (12-78); ANION GAP 6 MEQ/L (8-16); AST/SGOT 10 U/L (15-37); BILIRUBIN,DIRECT < 0.1 MG/DL (0.0-0.2); BILIRUBIN,TOTAL 0.1 MG/DL (0.2-1.0); BLOOD UREA NITROGEN 15 MG/DL (7-18); CALCIUM LEVEL 9.6 MG/DL (8.5-10.1); CARBON DIOXIDE LEVEL 25 MEQ/L (21-32); CHLORIDE LEVEL 112 MEQ/L (98-107); CREATININE FOR GFR 0.82 MG/DL (0.55-1.02); GLUCOSE, FASTING 84 MG/DL (70-105); POTASSIUM SERUM 4.2 MEQ/L (3.5-5.1); SODIUM LEVEL 143 MEQ/L (136-145); TOTAL PROTEIN 7.1 GM/DL (6.4-8.2)
[2016-09-15 20:28] LABS: METHADONE URINE NEGATIVE (NEGATIVE)
[2016-09-15] MEDS ORDERED: MOM 30ML SUSPENSION UDC PO PRN (23:15)
[2016-09-15] MEDS ORDERED: MAALOX 30 ML SUSP *UDC PO PRN (23:15)
[2016-09-15] MEDS ORDERED: CLOZ100T2 PO (23:39)
[2016-09-15] MEDS ORDERED: HALO5TA PO (23:39)
[2016-09-15] MEDS ORDERED: LACT3000 PO (23:39)
[2016-09-15] MEDS ORDERED: TRAZ50TA11 PO (23:39)
[2016-09-15] MEDS ORDERED: LITH600C PO (23:39)
[2016-09-15] MEDS ORDERED: LAMO150T PO (23:39)
[2016-09-16 00:36] VITALS: BP 154/98
[2016-09-16] MEDS: LITHIUM CARBONATE 600 MG CAP PO SCH ×3 (00:50→20:33)
[2016-09-16] MEDS: cloNIDine 0.1 MG TAB PO SCH ×4 (00:51→20:34)
[2016-09-16] MEDS: SERTRALINE HCL 25 MG TABLET PO SCH (08:04)
[2016-09-16] MEDS: cloZAPine 100 MG TAB (S0136) PO SCH ×3 (08:04→20:33)
[2016-09-16 08:43] LABS: BASO # 0.1 K/mm3 (0.0-0.2); BASO % 1.1 % (0.0-1.0); EOS % 0.2 % (0.0-3.0); LARGE UNSTAINED CELL # 0.2 K/mm3 (0.0-0.4); LARGE UNSTAINED CELL % 2.4 % (0.0-4.0); LYMPH # 3.5 K/mm3 (1.5-6.5); LYMPH % 42.8 % (24.0-44.0); MEAN CORPUSCULAR HEMOGLOBIN 30.4 pg (27.0-33.0); MEAN CORPUSCULAR HGB CONC 33.2 g/dl (32.0-36.5); MEAN CORPUSCULAR VOLUME 91.6 fl (80.0-96.0); MONO # 0.3 K/mm3 (0.0-0.8); MONO % 4.4 % (0.0-5.0); NEUTROPHILS # 3.8 K/mm3 (1.8-7.7); NEUTROPHILS % 49.1 % (36.0-66.0); PLATELET COUNT, AUTOMATED 279 k/mm3 (150-450); RED CELL DISTRIBUTION WIDTH 12.5 % (11.5-14.5); WHITE BLOOD COUNT 7.7 K/mm3 (4.0-10.0)
[2016-09-16] MEDS ORDERED: lamoTRIgine 100MG TAB PO SCH (09:00)
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
[2016-09-16] MEDS: LEVOTHYROXINE 75MCG TABLET (0.075MG) PO SCH (10:01)
[2016-09-16] MEDS: lamoTRIgine 100MG TAB PO SCH ×2 (10:02→20:34)
[2016-09-16] MEDS: HALOPERIDOL 10 MG TAB PO SCH ×2 (11:18→20:34)
--- NOTE | 2016-09-16 16:48 | ECGEPIP ---
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 Electronically Signed On 09-16-2016 16:48:36 EDT by Morris Heck
[2016-09-16 18:00] VITALS: BP 141/86
[2016-09-16] MEDS: metFORMIN XR 500MG TAB *GLUCOPHAGE XR PO SCH (20:33)
[2016-09-16] MEDS ORDERED: cloZAPine 100 MG TAB (S0136) PO SCH (21:00)
--- NOTE | 2016-09-16 21:44 | MHHPE ---
DATE OF ADMISSION: 09/15/2016 CURRENT MEDICATIONS: - clozapine 100 mg twice a day, 250 mg nightly - sertraline 37.5 mg by mouth every morning - Lamictal 150 mg twice a day - lithium 600 mg twice a day - clonidine 0.1 mg by mouth three times a day CHIEF COMPLAINT: The patient has been agitated and violent in her residential recently. The patient has been hearing voices telling her to harm herself. HISTORY OF PRESENT ILLNESS: This is a 20-year-old white female living in a [facility] ([facility]) residential with a history of schizophrenia and mild intellectual disability. The patient has been decompensating recently with worsening of her psychosis. She does not feel safe at home any longer and is afraid that she will harm herself. The patient reports increase in depression. Her appetite is down. Her weight is stable. Her concentration is fine. She sleeps well at night with her medications. Level of energy is poor. She does enjoy arts and crafts. She is struggling with her temper. She does have a history of temper issues, becoming violent with other residents and staff. Her major stressor of late is that her mother is moving from the [facility] down to [place] in October, this is a major loss for her. The patient reports good medication compliance. She saw her outpatient psychiatrist recently who increased her dose of Lamictal from 100 mg twice a day up to 150 mg twice a day. She has not noticed any improvement since being on this higher dosage. It is unclear why she is on such a low dose of Zoloft (sertraline). PAST PSYCHIATRIC HISTORY: The patient is not a good historian. Old records reveal that she has a long psychiatric history with treatment starting at age 9. She has had multiple psychiatric hospitalizations over the years but cannot give any adequate details. The patient was hospitalized here back in June and March of this year. She reports a history of frequent suicidal ideation but denies any actual suicide attempts over the years. MEDICAL HISTORY: Obesity, early onset diabetes. SURGICAL HISTORY: [place] teeth removed. ALLERGIES: The patient denies. LEGAL HISTORY ISSUES: None noted. CHEMICAL DEPENDENCY: The patient denies. SOCIAL HISTORY: The patient was born in [place] and raised in the [facility]. She moved up here to [place] about 1 year ago. Her mother lives in [place] but is moving out of state in October. She has two sisters, her relationship with them is good. Her father is in [place], she is estranged from him. The patient graduated high school in a special education program. She has no work history. FAMILY PSYCHIATRIC HISTORY: The patient's father has schizophrenia. MENTAL STATUS EXAMINATION: The patient is alert, oriented, and cooperative. Affect is subdued. She reports a depressed mood with recent suicidal ideation. The patient is hearing voices telling her to harm herself, both male and female in nature. She denies current paranoia. No signs of thought disorder. No signs of kasey. Intelligence quotient (IQ) appears in the mild intellectual disability range. Insight is poor. Judgment is poor. The patient is a potential danger to herself and others due to her poor impulse control. ASSESSMENT: The patient is having trouble adjusting to the impending move of her mother out of state. DIAGNOSES: Schizophrenia, multiple episodes, currently an acute episode. Rule out schizoaffective disorder, depressive type. PLAN: 9.39 confirmed. Obtain clozapine level. Obtain lithium level. The patient's had the Haldol switched from as needed to a standing dose 10 mg twice a day to help with psychotic symptoms.
[2016-09-17] MEDS: LEVOTHYROXINE 75MCG TABLET (0.075MG) PO SCH (07:07)
[2016-09-17 07:23] VITALS: BP 116/70
[2016-09-17] MEDS: cloNIDine 0.1 MG TAB PO SCH ×3 (08:24→20:34)
[2016-09-17] MEDS: HALOPERIDOL 10 MG TAB PO SCH ×2 (08:25→20:23)
[2016-09-17] MEDS: SERTRALINE HCL 25 MG TABLET PO SCH (08:25)
[2016-09-17] MEDS: lamoTRIgine 100MG TAB PO SCH ×2 (08:25→20:27)
[2016-09-17] MEDS: LITHIUM CARBONATE 600 MG CAP PO SCH ×2 (08:26→20:29)
[2016-09-17] MEDS: cloZAPine 100 MG TAB (S0136) PO SCH ×3 (08:26→20:30)
[2016-09-17] MEDS ORDERED: JUNEL PO SCH (09:00)
[2016-09-17 18:00] VITALS: BP 134/87
[2016-09-17] MEDS ORDERED: LORazepam 2 MG/ML VIAL (J2060) IM STA (18:54)
[2016-09-17] MEDS ORDERED: HALOPERIDOL 5 MG/ML VIAL (J1630) IM STA (18:54)
[2016-09-17] MEDS ORDERED: diphenhydrAMINE INJ 50MG/ML VIAL (J1200) IM STA (18:54)
[2016-09-17] MEDS ORDERED: diphenhydrAMINE INJ 50MG/ML VIAL (J1200) As Ordered ONE (19:00)
[2016-09-17] MEDS ORDERED: HALOPERIDOL 5 MG/ML VIAL (J1630) As Ordered ONE (19:00)
[2016-09-17] MEDS ORDERED: LORazepam 2 MG/ML VIAL (J2060) As Ordered ONE (19:00)
[2016-09-17 19:05] VITALS: BP 140/83
[2016-09-17 19:21] VITALS: BP 135/72
[2016-09-17 19:29] VITALS: BP 135/72
[2016-09-17] MEDS: metFORMIN XR 500MG TAB *GLUCOPHAGE XR PO SCH (20:27)
[2016-09-17 20:51] VITALS: BP 142/96
--- NOTE | 2016-09-18 02:58 | IPN ---
DATE OF SERVICE: 09/17/2016 VITAL SIGNS: Temperature 98.3, pulse 61, respirations 16, blood pressure 116/70. CURRENT MEDICATIONS: - clozapine 100 mg twice a day, 250 mg nightly - Lamictal 150 mg twice a day - sertraline 25 mg every morning - Haldol 10 mg twice a day - lithium 600 mg twice a day LABORATORY: [place] 0.89. Clozapine level pending. HISTORY OF PRESENT ILLNESS: Patient reports she is tolerating the Haldol 10 mg twice a day well. She feels sleepy for about 30 minutes after taking it, but then feels alert. She feels that the Haldol has reduced her psychotic symptoms. The voices are not as prominent. She still feels depressed, but the depression is not as prominent either. Anxiety is mild to moderate. She denies any temper issues. Patient is on a low dose of Zoloft. She is not able to explain why. She denies having had any bad side effects on it. She denies ever having any gastrointestinal side effects from it. Patient is worried that her mother is moving out of state later on this summer down to [place]. Patient is contemplating moving down to [place] after a period of time in the future. Patient appears to be coping with this transition better today. MENTAL STATUS EXAMINATION: Patient is alert, oriented and cooperative. Affect appears flat. She reports mild depression, mild levels of anxiety. No signs of aggression on the unit. No behavioral disturbances. She has not been homicidal or suicidal. Auditory hallucinations decreased in severity. Intelligence quotient (IQ) is limited. Insight and judgment remain poor, but no current signs of impulsivity or dangerousness. ASSESSMENT: Appears to be tolerating psychotropics well. Patient has no objection to increasing her Zoloft, sertraline. DIAGNOSES: 1. Schizophrenia, multiple episodes, currently in acute episode. 2. Rule out schizoaffective disorder, depressive type. PLAN: Clozapine level pending. Increase Zoloft.
[2016-09-18 06:30] VITALS: BP 142/88
[2016-09-18] MEDS: LEVOTHYROXINE 75MCG TABLET (0.075MG) PO SCH (07:30)
[2016-09-18] MEDS: SERTRALINE HCL 50 MG TAB PO SCH (08:54)
[2016-09-18] MEDS: LITHIUM CARBONATE 600 MG CAP PO SCH ×2 (08:54→21:00)
[2016-09-18] MEDS: HALOPERIDOL 10 MG TAB PO SCH ×2 (08:54→21:00)
[2016-09-18] MEDS: lamoTRIgine 100MG TAB PO SCH ×2 (08:54→22:09)
[2016-09-18] MEDS: cloZAPine 100 MG TAB (S0136) PO SCH ×3 (08:54→22:09)
[2016-09-18] MEDS: cloNIDine 0.1 MG TAB PO SCH ×3 (09:02→22:10)
[2016-09-18] MEDS: ACETAMINOPHEN TAB 650MG DOSE (2X325MG) PO PRN (12:43)
[2016-09-18] MEDS: HALOPERIDOL 5 MG TAB PO PRN (13:21)
--- NOTE | 2016-09-18 16:19 | IPN ---
DATE: 09/18/2016 VITAL SIGNS: Temperature 97.6, pulse 75, respirations 18, blood pressure 142/88. CURRENT MEDICATIONS: - Zoloft 50 mg in the morning - clozapine 100 mg twice a day and 250 mg at night - Haldol 10 mg twice a day - Haldol 5 mg every 4 hours as needed - Lamictal 150 mg twice a day - lithium 600 mg twice a day HISTORY OF PRESENT ILLNESS: The patient became agitated last night. She was banging her head. She blames the auditory hallucinations for this. She required restraints. She was seen by me afterwards in the evening. The patient got her nighttime medication early. She felt better and fell asleep. She is still hearing the voices. They are telling her bad things, like to bang her head against the wall. She denies any major precipitating stressors. I have to note that most of her agitated outbursts occur during visiting hours when other patients have visitors. The patient appears to be tolerating the Haldol well. She finds the Haldol helpful and is willing to take it as needed. She denies current feelings of depression. She does feel safer with the one-on-one supervision. She has no parkinsonian symptoms. MENTAL STATUS EXAMINATION: The patient is alert and oriented. She is reasonably cooperative. Affect is still flat. She currently denies depression today. Anxiety is minimal. She is not aggressive here today but was agitated last night. She is not homicidal or suicidal. The patient still reports auditory hallucinations. No paranoid noted. Insight and judgment appear quite poor. DIAGNOSES: 1. Schizophrenia, multiple episodes. 2. Rule out schizoaffective disorder. PLAN: Staff to encourage use of Haldol as needed as needed to help with psychotic symptoms and behavioral outbursts.
[2016-09-18 18:00] VITALS: BP 137/83
[2016-09-18] MEDS: metFORMIN XR 500MG TAB *GLUCOPHAGE XR PO SCH (22:10)
[2016-09-19] VITALS (7 sets, daily range): BP systolic 108–143; BP diastolic 56–89
[2016-09-19] MEDS: LEVOTHYROXINE 75MCG TABLET (0.075MG) PO SCH (06:07)
[2016-09-19] MEDS: lamoTRIgine 100MG TAB PO SCH ×2 (08:52→21:00)
[2016-09-19] MEDS: LITHIUM CARBONATE 600 MG CAP PO SCH ×2 (08:53→21:00)
[2016-09-19] MEDS: cloZAPine 100 MG TAB (S0136) PO SCH ×3 (08:53→21:00)
[2016-09-19] MEDS: cloNIDine 0.1 MG TAB PO SCH ×3 (08:53→21:00)
[2016-09-19] MEDS: SERTRALINE HCL 50 MG TAB PO SCH (08:53)
[2016-09-19] MEDS: HALOPERIDOL 10 MG TAB PO SCH ×2 (08:53→21:00)
[2016-09-19] MEDS ORDERED: diphenhydrAMINE INJ 50MG/ML VIAL (J1200) IM STA (20:43)
[2016-09-19] MEDS ORDERED: HALOPERIDOL 5 MG/ML VIAL (J1630) IM STA (20:43)
[2016-09-19] MEDS ORDERED: LORazepam 2 MG/ML VIAL (J2060) IM STA (20:43)
[2016-09-19] MEDS: metFORMIN XR 500MG TAB *GLUCOPHAGE XR PO SCH (21:00)
--- NOTE | 2016-09-19 21:44 | IPN ---
DATE: 09/19/2016 VITAL SIGNS: Temperature 97.9, pulse 75, respirations 18, blood pressure 133/78. CURRENT MEDICATIONS: - Zoloft 50 mg in the morning - clozapine 150 mg per day - Haldol 10 mg twice a day - Lamictal 150 mg twice a day - lithium 600 mg twice a day HISTORY OF PRESENT ILLNESS: The patient is still on one to one. The patient did become somewhat labile this afternoon. She was offered as needed Haldol but she refused. She admitted that her psychotic symptoms have returned, but she refused the Haldol claiming that it would not work. Later in the afternoon, however, her behavior settled down and she felt more comfortable with the milieu. She denied any situational stressors. MENTAL STATUS EXAMINATION: The patient volunteers little today. Affect does appear sad and somewhat flat and blunted. She denies current suicidal ideation, however. She does report auditory hallucinations, chronic in nature. Insight appears limited. Impulse control is problematic. For her safety, she requires a one on one. DIAGNOSES: 1. Schizophrenia, multiple episodes. 2. Rule out schizoaffective disorder. PLAN: Continue present management. Continue one on one supervision for her own safety.
[2016-09-20] MEDS: lamoTRIgine 100MG TAB PO SCH ×2 (08:13→20:57)
[2016-09-20] MEDS: cloZAPine 100 MG TAB (S0136) PO SCH ×3 (08:13→20:55)
[2016-09-20] MEDS: LITHIUM CARBONATE 600 MG CAP PO SCH ×2 (08:13→20:56)
[2016-09-20] MEDS: LEVOTHYROXINE 75MCG TABLET (0.075MG) PO SCH (08:13)
[2016-09-20] MEDS: HALOPERIDOL 10 MG TAB PO SCH ×2 (08:13→20:56)
[2016-09-20] MEDS: SERTRALINE HCL 50 MG TAB PO SCH (08:13)
[2016-09-20] MEDS: cloNIDine 0.1 MG TAB PO SCH ×3 (08:18→20:57)
--- NOTE | 2016-09-20 13:46 | IPN ---
DATE: 09/20/2016 VITAL SIGNS: Blood pressure 127/71. CURRENT MEDICATIONS: - Zoloft 50 mg in the morning - Haldol 5 mg every 4 hours as needed - clozapine 100 mg twice a day and 250 mg at bedtime - Haldol 10 mg twice a day - Lamictal 150 mg twice a day - lithium 600 mg twice a day LAB REPORTS: Clozapine level pending. HISTORY OF PRESENT ILLNESS: The patient had another bout of agitation last night with head banging. She had refused as needed medication and eventually required restraints with IM psychotropics, Benadryl, Haldol and Ativan with good effect. The patient had no adverse consequences from the restraints. The patient was seen by me again last night after the restraints. She had no further behavioral outbursts after receiving the medications. She is not able to explain why she decompensated except that she had been hearing more voices as the day progressed. She is encouraged to take the as needed Haldol on a more frequent basis. For her own safety, she still requires one-on-one monitoring. Due to her significant intellectual deficit, having a behavior treatment plan from her psychologist at the intermediate appears appropriate in an effort to moderate and to modulate her aggressive outbursts. MENTAL STATUS EXAMINATION: The patient is resting quietly today. She still has auditory hallucinations that come and go. No signs of paranoia or thought disorder. Insight appears limited. Judgment appears poor. She is not currently depressed or suicidal. No signs of kasey. Intelligence quotient (IQ) is in the mild to moderate intellectual deficit range. The patient appears impulsive and a potential danger to self and others. DIAGNOSES: 1. Schizophrenia, multiple episodes. 2. Rule out schizoaffective disorder. PLAN: Continue one-one-one monitoring. Staff to work on behavior plan suitable for the intellectual disability challenged population in an effort to shape better and more healthy behavior.
[2016-09-20] MEDS: LORazepam 1 MG TAB PO PRN (16:07)
[2016-09-20] MEDS: HALOPERIDOL 5 MG TAB PO PRN (17:37)
[2016-09-20 18:00] VITALS: BP 133/86
[2016-09-20] MEDS: traZODone 50 MG TAB PO PRN (20:55)
[2016-09-20] MEDS: metFORMIN XR 500MG TAB *GLUCOPHAGE XR PO SCH (20:55)
[2016-09-20] MEDS: ACETAMINOPHEN TAB 650MG DOSE (2X325MG) PO PRN (20:58)
[2016-09-21] MEDS: LEVOTHYROXINE 75MCG TABLET (0.075MG) PO SCH (06:39)
[2016-09-21 07:03] VITALS: BP 135/73
[2016-09-21] MEDS: LITHIUM CARBONATE 600 MG CAP PO SCH ×2 (08:47→23:36)
[2016-09-21] MEDS: cloNIDine 0.1 MG TAB PO SCH ×3 (08:48→23:41)
[2016-09-21] MEDS: cloZAPine 100 MG TAB (S0136) PO SCH ×3 (08:48→23:37)
[2016-09-21] MEDS: SERTRALINE HCL 50 MG TAB PO SCH (08:48)
[2016-09-21] MEDS: HALOPERIDOL 10 MG TAB PO SCH (08:48)
[2016-09-21] MEDS: lamoTRIgine 100MG TAB PO SCH ×2 (08:50→23:41)
--- NOTE | 2016-09-21 13:43 | IPN ---
DATE: 09/21/2016 VITAL SIGNS: Temperature 97.2, pulse 74, respirations 18, blood pressure 135/73. CURRENT MEDICATIONS: - Zoloft 50 mg every morning - clozapine 100 mg twice a day, 250 mg at bedtime - Haldol 10 mg twice a day - Lamictal 150 mg twice a day - trazodone 50 mg at bedtime as needed - lithium carbonate 600 mg twice a day LAB REPORTS: Plasma clozapine 744 which is considered high. HISTORY OF PRESENT ILLNESS: The patient still reports feeling depressed. She is not sure exactly why. She is willing to increase her dose of Zoloft. Patient is still hearing voices. He clozapine level is actually on the high side, but is obviously at a therapeutic level. 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 Patient is shown a behavioral plan, which she feels comfortable signing. Patient states her only major stressor is the fact that her mother is moving out of state later in October. No other complaints noted. We again discussed the fact that there are as needed medications available and she is urged to reach out and request medication when she is starting to become agitated. MENTAL STATUS EXAMINATION: Patient is a bit more verbal today. She is still depressed. Patient still report shearing voices. She denies paranoia. No signs of thought disorder. Insight and judgment remain poor. Patient reports mild to moderate depression, but no signs of kasey. She does have a history of impulsivity and dangerouness. DIAGNOSES: 1. Schizophrenia, chronic but with multiple episodes. 2. Rule out schizoaffective disorder. PLAN: Increase Zoloft to 100 mg every morning. Increase Haldol to 15 mg twice a day.
[2016-09-21] MEDS: LORazepam 1 MG TAB PO PRN (17:10)
[2016-09-21 18:00] VITALS: BP 133/79
[2016-09-21] MEDS ORDERED: HALOPERIDOL 5 MG/ML VIAL (J1630) IM STA (21:32)
[2016-09-21] MEDS ORDERED: LORazepam 2 MG/ML VIAL (J2060) IM STA (21:32)
[2016-09-21 21:45] VITALS: BP_SYST 140; BP_SYST 141; BP_DIAS 61; BP_DIAS 82
--- NOTE | 2016-09-21 21:56 | IPN ---
DATE: 09/21/2016 I was called a few minutes ago as the patient had become more agitated, and had been banging her head against the wall, and was not able to be directed, though attempts were made early on. She was put in four-point restraints, and has been given, a few minutes ago, Haldol 5 mg intramuscular, Ativan 1 mg intramuscular. When I saw her, and I arrived at the unit about 10-15 minutes after she had been placed in restraints, she indicated that she did not wish to speak with me, but answered questions logically, coherently, and was alert and oriented and we will monitor her. I also understand from staff that she has been requiring restraints every other day apparently. This also tends to happen after visiting hours in the evening. Further recommendations will be made depending on the clinical picture.
[2016-09-21 22:00] VITALS: BP 140/82
[2016-09-21 22:35] VITALS: BP 136/93
[2016-09-21 23:05] VITALS: BP 138/72
[2016-09-21] MEDS: metFORMIN XR 500MG TAB *GLUCOPHAGE XR PO SCH (23:39)
[2016-09-21] MEDS: HALOPERIDOL 5 MG TAB PO SCH (23:39)
[2016-09-21] MEDS: traZODone 50 MG TAB PO PRN (23:42)
[2016-09-22 06:35] VITALS: BP 130/97
[2016-09-22] MEDS: LEVOTHYROXINE 75MCG TABLET (0.075MG) PO SCH (06:46)
[2016-09-22] MEDS: cloZAPine 100 MG TAB (S0136) PO SCH ×2 (07:14→21:30)
[2016-09-22] MEDS: SERTRALINE 100 MG TAB PO SCH (08:37)
[2016-09-22] MEDS: LITHIUM CARBONATE 600 MG CAP PO SCH ×2 (08:37→21:32)
[2016-09-22] MEDS: HALOPERIDOL 5 MG TAB PO SCH ×2 (08:37→21:33)
[2016-09-22] MEDS: lamoTRIgine 100MG TAB PO SCH ×2 (08:38→21:31)
[2016-09-22] MEDS: cloNIDine 0.1 MG TAB PO SCH ×3 (08:43→21:30)
[2016-09-22] MEDS: cloZAPine 25 MG TAB (S0136) PO SCH (11:56)
[2016-09-22 11:59] VITALS: BP 122/61
[2016-09-22] MEDS ORDERED: TUBERCULIN PPD 5 UNITS/0.1 ML ID ONE (15:00)
[2016-09-22] MEDS: HALOPERIDOL 5 MG TAB PO PRN (17:54)
[2016-09-22 18:11] VITALS: BP 120/57
[2016-09-22] MEDS: traZODone 50 MG TAB PO PRN (21:30)
[2016-09-22] MEDS: metFORMIN XR 500MG TAB *GLUCOPHAGE XR PO SCH (21:32)
[2016-09-23] MEDS: LEVOTHYROXINE 75MCG TABLET (0.075MG) PO SCH (06:05)
[2016-09-23 06:32] VITALS: BP 122/56
[2016-09-23] MEDS: HALOPERIDOL 5 MG TAB PO SCH ×2 (09:56→20:18)
[2016-09-23] MEDS: cloZAPine 25 MG TAB (S0136) PO SCH ×2 (09:56→11:37)
[2016-09-23] MEDS: cloNIDine 0.1 MG TAB PO SCH ×3 (09:56→20:18)
[2016-09-23] MEDS: SERTRALINE 100 MG TAB PO SCH (09:56)
[2016-09-23] MEDS: LITHIUM CARBONATE 600 MG CAP PO SCH ×2 (09:56→20:15)
[2016-09-23] MEDS: lamoTRIgine 100MG TAB PO SCH ×2 (09:56→20:16)
--- NOTE | 2016-09-23 11:47 | IPN ---
DATE: 09/22/2016 VITAL SIGNS: Temperature 97.5, pulse 72, respirations 18, blood pressure 130/97. CURRENT MEDICATIONS: - clozapine 100 mg twice a day and 250 mg at night - Zoloft 100 mg in the morning - Haldol 15 mg twice a day - Lamictal 150 mg twice a day - trazodone 50 mg at night as needed - lithium 600 mg twice a day HISTORY OF PRESENT ILLNESS: The patient had another episode of agitation last night requiring restraints and intramuscular medications. Dr. Sears was called in to see the patient. Every episode of agitation occurs after visiting hours. Staff wonder if the patient is upset about not receiving any visitors. Staff from the long term reports that her behavior has started to decompensate over the past month since she found out that her mother is moving down to [place]. The patient is not able to ventilate about this. The patient sleeps off and on throughout the day today, waking up briefly to be interviewed. She is superficial, denying any major problems. She does admit to hearing voices periodically, which seem to trigger her episodes of agitation. She is not attending groups. She spends most of the day in bed and being monitored by her one-on-one sitter. MENTAL STATUS EXAMINATION: As above, she is minimally verbal. The patient reports depression, which comes and goes. The patient is still hearing voices at times but denies paranoia. Insight and judgment are poor. The patient does have a history of impulsivity and dangerousness. DIAGNOSES: 1. Schizophrenia, chronic with multiple episodes. 2. Rule out schizoaffective disorder, depressed. PLAN: Continue Zoloft 100 mg in the morning. Reduce daytime Clozaril to 50 mg twice a day from 100 mg twice a day. This is done because her Clozaril level is elevated. The patient's Haldol dose has been increased of late, which hopefully will help with her treatment resistant psychosis. The patient may need long-term care so paperwork will be done for transfer to [facility].
[2016-09-23] MEDS: LORazepam 1 MG TAB PO PRN (16:12)
[2016-09-23 18:00] VITALS: BP 124/67
--- NOTE | 2016-09-23 19:48 | IPN ---
DATE: 09/23/2016 VITAL SIGNS: Temperature 96.9, pulse 68, respirations 16, blood pressure 122/56. CURRENT MEDICATIONS: - Clozaril 50 mg twice a day - Clozaril 250 mg at bedtime - Haldol 15 mg twice a day - Zoloft 100 mg every a.m. - Lamictal 150 mg twice a day - lithium 600 mg twice a day - trazodone 50 mg at bedtime as needed HISTORY OF PRESENT ILLNESS: The patient still spending most of her day in bed. She gets up for lunch and then goes back to bed. However, she says her mood is better. She claims she "feels happier". She is not sure exactly why. She states that the voices are less prominent. She requests to come off one on one supervision. The patient has been typically requiring restraints every two days for control of agitated behavior. She is due for another episode tonight. We discussed various constructive options to avoid another episode of agitation and restraints. She agrees to request as needed of Haldol of necessary. MENTAL STATUS EXAM: The patient is more verbal today. She has better eye contact. Affect does appear brighter. She appears less depressed. She is not as guarded. She reports auditory hallucinations are not as prominent. No current signs of impulsivity. Will be monitored closely tonight. Insight and judgment appear fair. DIAGNOSES: Schizophrenia, chronic, with multiple episodes, Rule out schizoaffective disorder. PLAN: Continue current management. The patient encouraged to be out in the hospital milieu. If she is able to show good behavioral control tonight and not require intramuscular (IM) medication and restraints, the patient's one on one sitter will be removed. SARINA
[2016-09-23] MEDS: metFORMIN XR 500MG TAB *GLUCOPHAGE XR PO SCH (20:15)
[2016-09-23] MEDS: cloZAPine 100 MG TAB (S0136) PO SCH (20:17)
[2016-09-23 20:20] VITALS: BP 125/67
[2016-09-24] MEDS: LEVOTHYROXINE 75MCG TABLET (0.075MG) PO SCH (06:11)
[2016-09-24 06:25] VITALS: BP 122/77
[2016-09-24] MEDS: cloNIDine 0.1 MG TAB PO SCH ×3 (08:04→21:50)
[2016-09-24] MEDS: lamoTRIgine 100MG TAB PO SCH ×2 (08:04→21:51)
[2016-09-24] MEDS: cloZAPine 25 MG TAB (S0136) PO SCH ×2 (08:04→11:35)
[2016-09-24] MEDS: SERTRALINE 100 MG TAB PO SCH (08:04)
[2016-09-24] MEDS: LITHIUM CARBONATE 600 MG CAP PO SCH ×2 (08:04→21:50)
[2016-09-24] MEDS: HALOPERIDOL 5 MG TAB PO SCH ×2 (08:06→21:50)
[2016-09-24] MEDS ORDERED: PPD DOCUMENTATION ENTRY MISC XX SCH (10:00)
[2016-09-24 18:00] VITALS: BP 121/60
[2016-09-24] MEDS: LORazepam 1 MG TAB PO PRN (19:27)
[2016-09-24] MEDS: cloZAPine 100 MG TAB (S0136) PO SCH (21:50)
[2016-09-24] MEDS: metFORMIN XR 500MG TAB *GLUCOPHAGE XR PO SCH (21:51)
[2016-09-24] MEDS: traZODone 50 MG TAB PO PRN (22:22)
[2016-09-25] MEDS: LEVOTHYROXINE 75MCG TABLET (0.075MG) PO SCH (06:06)
[2016-09-25 06:23] VITALS: BP 107/68
[2016-09-25] MEDS: SERTRALINE 100 MG TAB PO SCH (09:02)
[2016-09-25] MEDS: LITHIUM CARBONATE 600 MG CAP PO SCH ×2 (09:02→21:28)
[2016-09-25] MEDS: lamoTRIgine 100MG TAB PO SCH ×2 (09:02→21:28)
[2016-09-25] MEDS: cloNIDine 0.1 MG TAB PO SCH ×3 (09:02→21:26)
[2016-09-25] MEDS: HALOPERIDOL 5 MG TAB PO SCH ×2 (09:02→21:28)
--- NOTE | 2016-09-25 09:29 | IPN ---
DATE: 09/24/2016 VITAL SIGNS: Temperature 99.4, pulse 72, respirations 18, blood pressure 122/77. CURRENT MEDICATIONS: - clozapine 50 mg twice a day and 250 mg at bedtime - Sertraline 100 mg every morning - Haldol 15 mg twice a day - Lamictal 150 mg twice a day - lithium 600 mg twice a day HISTORY OF PRESENT ILLNESS: The patient reports that she is feeling better. She feels less depressed. She has not been agitated in the last 24 hours. She is doing fine without the one-on-one supervision. She did refuse her morning dose of Haldol due to concerns about sedation. The patient reports auditory hallucinations have been mild. Her appetite is good. She slept well last night. She is back attending groups today. Behavior is appropriate. MENTAL STATUS EXAMINATION: No signs of agitation noted today. Affect is again brighter. Depression less prominent. Paranoia improved. Auditory hallucinations are reduced. Impulsivity has improved. Insight and judgment seem improved. DIAGNOSIS: Schizophrenia, chronic, with multiple episodes. PLAN: Possible reduction in clozapine further to reduce daytime sedation. The patient does seem to have benefited from the increased dose of oral Haldol.
[2016-09-25 18:00] VITALS: BP 118/72
[2016-09-25] MEDS: LORazepam 1 MG TAB PO PRN (20:15)
[2016-09-25] MEDS: metFORMIN XR 500MG TAB *GLUCOPHAGE XR PO SCH (21:27)
[2016-09-25] MEDS: cloZAPine 100 MG TAB (S0136) PO SCH (21:28)
[2016-09-26] MEDS: LEVOTHYROXINE 75MCG TABLET (0.075MG) PO SCH (06:08)
[2016-09-26 06:52] VITALS: BP 121/64
[2016-09-26] MEDS: SERTRALINE 100 MG TAB PO SCH (08:50)
[2016-09-26] MEDS: lamoTRIgine 100MG TAB PO SCH ×2 (08:50→20:57)
[2016-09-26] MEDS: LITHIUM CARBONATE 600 MG CAP PO SCH ×2 (08:50→20:56)
[2016-09-26] MEDS: HALOPERIDOL 5 MG TAB PO SCH ×2 (08:51→20:56)
[2016-09-26] MEDS: cloNIDine 0.1 MG TAB PO SCH ×3 (08:51→20:57)
[2016-09-26 18:00] VITALS: BP 144/59
[2016-09-26] MEDS: LORazepam 1 MG TAB PO PRN (18:05)
[2016-09-26] MEDS ORDERED: diphenhydrAMINE INJ 50MG/ML VIAL (J1200) IM ONE (19:00)
[2016-09-26] MEDS ORDERED: LORazepam 2 MG/ML VIAL (J2060) IM ONE (19:00)
[2016-09-26] MEDS ORDERED: HALOPERIDOL 5 MG/ML VIAL (J1630) IM ONE (19:00)
[2016-09-26 19:45] VITALS: BP 140/80
[2016-09-26] MEDS: metFORMIN XR 500MG TAB *GLUCOPHAGE XR PO SCH (20:55)
[2016-09-26] MEDS: cloZAPine 100 MG TAB (S0136) PO SCH (20:57)
[2016-09-27 07:13] VITALS: BP 118/72
[2016-09-27] MEDS: LEVOTHYROXINE 75MCG TABLET (0.075MG) PO SCH (07:27)
[2016-09-27] MEDS: LITHIUM CARBONATE 600 MG CAP PO SCH ×2 (10:01→20:15)
[2016-09-27] MEDS: cloNIDine 0.1 MG TAB PO SCH ×3 (10:01→20:14)
[2016-09-27] MEDS: lamoTRIgine 100MG TAB PO SCH ×2 (10:01→20:14)
[2016-09-27] MEDS: SERTRALINE 100 MG TAB PO SCH (10:02)
[2016-09-27] MEDS: HALOPERIDOL 5 MG TAB PO SCH ×2 (10:02→20:14)
[2016-09-27 15:12] LABS: BASO % 0.5 % (0.0-1.0); EOS % 0.1 % (0.0-3.0); LARGE UNSTAINED CELL # 0.2 K/mm3 (0.0-0.4); LYMPH # 3.4 K/mm3 (1.5-6.5); LYMPH % 35.8 % (24.0-44.0); MEAN CORPUSCULAR HGB CONC 33.7 g/dl (32.0-36.5); MONO # 0.4 K/mm3 (0.0-0.8); MONO % 4.1 % (0.0-5.0); NEUTROPHILS # 5.2 K/mm3 (1.8-7.7); NEUTROPHILS % 57.5 % (36.0-66.0); PLATELET COUNT, AUTOMATED 298 k/mm3 (150-450); RED CELL DISTRIBUTION WIDTH 12.4 % (11.5-14.5)
[2016-09-27] MEDS ORDERED: HALOPERIDOL 5 MG TAB PO SCH (17:00)
[2016-09-27 18:10] VITALS: BP 118/62
[2016-09-27] MEDS: LORazepam 1 MG TAB PO PRN (18:27)
[2016-09-27] MEDS: HALOPERIDOL 5 MG TAB PO PRN (18:27)
[2016-09-27] MEDS: metFORMIN XR 500MG TAB *GLUCOPHAGE XR PO SCH (20:13)
[2016-09-27] MEDS: cloZAPine 100 MG TAB (S0136) PO SCH (20:14)
[2016-09-28 06:18] VITALS: BP 118/61
[2016-09-28] MEDS: LEVOTHYROXINE 75MCG TABLET (0.075MG) PO SCH (06:22)
[2016-09-28] MEDS: HALOPERIDOL 5 MG TAB PO SCH ×2 (08:50→20:14)
[2016-09-28] MEDS: lamoTRIgine 100MG TAB PO SCH ×2 (08:50→20:15)
[2016-09-28] MEDS: SERTRALINE 100 MG TAB PO SCH (08:50)
[2016-09-28] MEDS: LITHIUM CARBONATE 600 MG CAP PO SCH ×2 (08:50→20:13)
[2016-09-28] MEDS: cloNIDine 0.1 MG TAB PO SCH ×3 (08:51→20:14)
[2016-09-28] MEDS: HALOPERIDOL 10 MG TAB PO SCH (16:51)
[2016-09-28 18:08] VITALS: BP 126/72
[2016-09-28] MEDS: LORazepam 1 MG TAB PO PRN (18:30)
--- NOTE | 2016-09-28 20:09 | IPN ---
DATE: 09/28/2016 VITAL SIGNS: Temperature 97.1, pulse 72, respirations 16, blood pressure 118/61. CURRENT MEDICATIONS: - Haldol 15 mg twice a day - Haldol 5 mg at 1700 hours - clozapine 300 mg at bedtime - Zoloft 100 mg every morning - Lamictal 150 mg twice a day - lithium 600 mg twice a day HISTORY OF PRESENT ILLNESS: Patient reports her mood to be good. Depression is minimal. She states psychotic symptoms are much improved. She slept well last night. She finds the dinnertime dose of Haldol helpful. She would like to dose increased, which appears reasonable. Patient slept through the morning blood draw. It will be repeated tomorrow morning at 9:00 a.m. Patient is out of her room more in the environment. MENTAL STATUS EXAMINATION: No outbursts noted. Affect is brighter. She is less depressed, not suicidal, not homicidal. Paranoia much improved. Auditory hallucinations reduced. Frustration and tolerance seems improved. Insight and judgment seem improved. DIAGNOSIS: Schizophrenia, chronic, with multiple episodes. PLAN: Increase Haldol at 1700 hours up to 10 mg. Possible discharge on if the patient maintains good behavioral control. Repeat Clozaril level for tomorrow morning.
[2016-09-28] MEDS: metFORMIN XR 500MG TAB *GLUCOPHAGE XR PO SCH (20:13)
[2016-09-28] MEDS: cloZAPine 100 MG TAB (S0136) PO SCH (20:14)
--- NOTE | 2016-09-28 23:30 | IPN ---
DATE: 09/27/2016 VITAL SIGNS: Temperature 97.6, pulse 80, respirations 18, blood pressure 118/ 72. CURRENT MEDICATIONS: Clozapine 300 mg at bedtime (hs), Zoloft 100 mg every morning, Haldol 15 mg twice a day, Lamictal 150 mg twice a day, lithium 600 mg twice a day, HISTORY OF PRESENT ILLNESS: The patient did well over the weekend without any outburst. However, she states that early Tuesday evening she started to hear the voices again. She asked for an Ativan as needed, but not the Haldol as needed. The voices did get worse and then she started banging her head against wall and biting herself. This was in response to the commands on the auditory hallucinations. The patient was then given as needed medications, but did not require actual restraints fortunately. The patient states that her mood is better. Her affect is definitely improved. Her behavior has improved over the weekend with attending groups etc. The patient is asking for her personal clothing which appears reasonable. MENTAL STATUS EXAMINATION: Affect is pleasant today. The patient reports her mood is improved. She denies hearing any voices today. She did have an episode of psychosis last night. No behavioral outbursts noted today. Insight and judgment seems somewhat improved. DIAGNOSIS: 1. Schizophrenia, chronic with multiple episodes. PLAN: Add Haldol dosage 5 mg daily at 5 p.m. No change on the psychotropics. The patient to get clozapine blood level again as the dose has been changed. The patient to get complete blood count (CBC) and differential. The patient switched to [facility] legal status. [facility]
[2016-09-29] MEDS: LEVOTHYROXINE 75MCG TABLET (0.075MG) PO SCH (06:07)
[2016-09-29 06:42] VITALS: BP 103/57
[2016-09-29] MEDS: SERTRALINE 100 MG TAB PO SCH (08:18)
[2016-09-29] MEDS: LITHIUM CARBONATE 600 MG CAP PO SCH ×2 (08:18→20:00)
[2016-09-29] MEDS: lamoTRIgine 100MG TAB PO SCH ×2 (08:18→20:00)
[2016-09-29] MEDS: HALOPERIDOL 5 MG TAB PO SCH ×2 (08:18→20:00)
[2016-09-29] MEDS: cloNIDine 0.1 MG TAB PO SCH ×3 (08:20→20:00)
[2016-09-29] MEDS: HALOPERIDOL 10 MG TAB PO SCH (16:48)
[2016-09-29 18:23] VITALS: BP 121/60
[2016-09-29] MEDS: metFORMIN XR 500MG TAB *GLUCOPHAGE XR PO SCH (20:00)
[2016-09-29] MEDS: cloZAPine 100 MG TAB (S0136) PO SCH (20:01)
[2016-09-30] MEDS: LEVOTHYROXINE 75MCG TABLET (0.075MG) PO SCH (06:12)
[2016-09-30 07:12] VITALS: BP 146/83
[2016-09-30 08:11] VITALS: BP 146/83
[2016-09-30] MEDS: cloNIDine 0.1 MG TAB PO SCH (08:11)
[2016-09-30] MEDS: lamoTRIgine 100MG TAB PO SCH (08:11)
[2016-09-30] MEDS: HALOPERIDOL 5 MG TAB PO SCH (08:11)
[2016-09-30] MEDS: LITHIUM CARBONATE 600 MG CAP PO SCH (08:11)
[2016-09-30] MEDS: SERTRALINE 100 MG TAB PO SCH (08:11)
[2016-09-30] MEDS ORDERED: CLOZ100T2 PO (09:14)
[2016-09-30] MEDS ORDERED: SERT-138 PO (09:14)
[2016-09-30] MEDS ORDERED: HALO10TA2 PO (09:14)
[2016-09-30] MEDS ORDERED: HALO5TA PO (09:14)
--- NOTE | 2016-09-30 10:13 | MHIPN ---
DATE: 09/29/2016 Vital signs: Temperature 97.3, pulse 69, respiration 18, blood pressure 103/57. CURRENT MEDICATIONS: - clozapine 300 mg at bedtime - Haldol 15 mg twice daily - Haldol 10 mg at 5 p.m. - Zoloft 100 mg every morning - Lamictal 150 mg twice daily - lithium 600 mg twice daily HISTORY OF PRESENT ILLNESS: Patient did well yesterday. She had no outbursts in the community. She states that her mood has been good. She feels positive about the future and returning to the [facility]. She has been out of her room more and interacting more with the other peers. She likes the Haldol which has helped with her psychotic symptoms. Patient slept through the Clozaril blood draw from yesterday but will get a repeat for today. She feels comfortable with discharge tomorrow. Staff are working on discharge planning with [facility] staff. MENTAL STATUS EXAMINATION: Mood is good today. She smiles easily. No signs of anxiety. Affect is good. She is not depressed. Not suicidal. She denies hearing voices today. No signs of paranoia or thought disorder. Insight and judgment seem improved. Impulse control seems improved. DIAGNOSIS: Schizophrenia, chronic with multiple episodes. PLAN: Continue current psychotropics with discharge tomorrow scheduled.
--- NOTE | 2016-10-01 22:23 | MHDS ---
DATE OF ADMISSION: 09/15/2016 DATE OF DISCHARGE: 09/30/2016 VITAL SIGNS: Temperature 97.4, pulse 94, respirations 20, blood pressure 146/83. LABORATORY: Complete blood count (CBC) and differential within normal limits. Chemistry normal except for chloride 112. Bilirubin low at 0.1, AST low at 10. Toxicology was negative. Iron Post level therapeutic at 0.89. Serum clozapine level high at 744. Electrocardiogram (EKG) showed normal sinus rhythm with moderate intraventricular conduction delay. QTc interval within normal limits at 454. No change compared with March 30, 2016. DISCHARGE MEDICATIONS: - Haldol 15 mg twice a day - Haldol 10 mg at 1700 hours - clozapine 300 mg at bedtime (hs) - Zoloft 100 mg every morning - Lamictal 150 mg twice a day - trazodone 50 mg at bedtime (hs) as needed - lithium carbonate 600 mg twice a day - clonidine 0.1 mg three times a day DISCHARGE DIAGNOSES: 1. Schizophrenia, multiple episodes with current acute episode. CHIEF COMPLAINT: Agitation at a jail. HISTORY OF PRESENT ILLNESS: This is a 20-year-old white female living at [facility] with a history of schizophrenia and mild intellectual disability. She has been hearing voices recently telling her to harm herself. Psychosis has been worse prior to admission. The patient reports an increase in depression. Her appetite is poor. Level of energy is poor. She has temper issues becoming violent with other residents and staff. A major stressor recently is that her mother is moving from the [facility] down to [place] in October. PROGRESS ON THE UNIT: The patient had frequent episodes of agitation where she would start biting herself and banging her head against the wall. She required restraints and intramuscular (IM) medications two or three times. The patient was on a high dose of clozapine. Serum clozapine level was quite elevated and yet the patient continued to report auditory hallucinations. Her Haldol was rapidly increased and well tolerated. Gradual decrease in her psychotic symptoms. A clozapine level was performed the day before discharge, but the results are still pending at the time of dictation. The patient came into the hospital on a low dose of Zoloft 37.5 mg every morning and it is unclear why she was on such a low dose. She denied any side-effects on it. In any event, the Zoloft dose was increased up to 50 mg which was well tolerated. It was then increased to 100 mg every morning with some benefit noted in her moods. The patient did have sedation apparently from the clozapine. Her clozapine daytime dose at 100 mg twice a day was reduce to 50 mg twice a day and then discontinued all together. She was maintained on a dose of clozapine 300 mg at bedtime, which in combination with the daytime doses of Haldol showed improvement in her psychotic symptoms. The patient maintained behavior control. Prior to discharge, she appeared to reach maximal hospital benefit. She is looking forward to returning home to her jail and socializing with friends and going to her outpatient psychosocial program. MENTAL STATUS EXAMINATION: On the day of discharge, mood and affect were markedly improved. She had a full range of affect. She smiled easily. She was no longer depressed. She denied any auditory hallucinations for the past four to five days. She has had no further outburst or episodes of agitation. Insight and judgment seems much improved. Impulsivity seemed improved as well. No signs of dangerousness at the time of discharge. Grooming and hygiene appeared good. PLAN: The patient is to followup with outpatient mental health services as provided to [facility]
== END 2016-09-30 10:30 | disposition home or self-care (01) | DRG 750 ==
LOC: M ED 18:38 → M ED INP 23:10 → M PSY 09-16 00:25
PROVIDERS: ADMIT Psychiatry & Neurology Psychiatry; ATTEND Psychiatry & Neurology Psychiatry
DX: F20.89 Other schizophrenia (principal); F70 Mild intellectual disabilities; E66.9 Obesity, unspecified; E03.9 Hypothyroidism, unspecified; F32.9 Major depressive disorder, single episode, unspecified; G47.00 Insomnia, unspecified; R73.01 Impaired fasting glucose; Z79.84 Long term (current) use of oral hypoglycemic drugs; Z79.899 Other long term (current) drug therapy

== ENCOUNTER 2017-02-05 20:36 | Emergency (ER) | payer OTHER ==
[~2017-02-05] VITALS: Ht 152.4 cm; Wt 111.8 kg
[~2017-02-05 20:36] MED LIST changes: +HALO10TA2 PO; +LACT3000 PO; +LAMO150T PO; +LITH600C PO; +SERT-138 PO; +TRAZ50TA11 PO
[2017-02-05] MEDS ORDERED: PROP40TA PO (20:42)
[2017-02-05] MEDS ORDERED: IPRATROPIUM 0.5MG/ALBUTEROL 2.5MG INH SOL UD 3ML (DUONEB)(J7620) NEB ONE (21:30)
[2017-02-05 22:14] VITALS: BP 134/67
[2017-02-05] MEDS ORDERED: ALBUTEROL 90 MCG/ACT 8GM HFA INHALER INH ONE (22:15)
== END 2017-02-05 22:35 | disposition home or self-care (01) ==
LOC: M ED 20:36
DX: J45.901 Unspecified asthma with (acute) exacerbation (principal); E11.9 Type 2 diabetes mellitus without complications; Z79.899 Other long term (current) drug therapy; Z79.84 Long term (current) use of oral hypoglycemic drugs; Z91.011 Allergy to milk products

== ENCOUNTER 2017-02-13 17:02 | Emergency (ER) | payer OTHER ==
[~2017-02-13] VITALS: Ht 152.4 cm; Wt 111.0 kg
[~2017-02-13 17:02] MED LIST changes: -ABIL1TAB11 PO; -AMAN100C18 PO
[2017-02-13 18:07] LABS: MEAN CORPUSCULAR HEMOGLOBIN 30.1 pg (27.0-33.0); MEAN CORPUSCULAR HGB CONC 33.1 g/dl (32.0-36.5); PLATELET COUNT, AUTOMATED 319 10^3/uL (150-450); RED CELL DISTRIBUTION WIDTH 11.9 % (11.5-14.5); WHITE BLOOD COUNT 7.4 10^3/uL (4.0-10.0)
[2017-02-13 18:22] LABS: CONTROL LINE HCG INT CTR LINE PRESENT
[2017-02-13 18:37] LABS: ALBUMIN 3.8 GM/DL (3.2-5.2); ALBUMIN/GLOBULIN RATIO 1.03 (1.00-1.93); ALKALINE PHOSPHATASE 88 U/L (45-117); ALT/SGPT 27 U/L (12-78); ANION GAP 9 MEQ/L (8-16); AST/SGOT 15 U/L (7-37); BILIRUBIN,DIRECT < 0.1 MG/DL (0.0-0.2); BILIRUBIN,TOTAL 0.2 MG/DL (0.2-1.0); BLOOD UREA NITROGEN 10 MG/DL (7-18); CALCIUM LEVEL 8.8 MG/DL (8.5-10.1); CARBON DIOXIDE LEVEL 26 MEQ/L (21-32); CHLORIDE LEVEL 106 MEQ/L (98-107); CREATININE FOR GFR 0.86 MG/DL (0.55-1.02); GLUCOSE, FASTING 87 MG/DL (70-105); POTASSIUM SERUM 4.3 MEQ/L (3.5-5.1); SODIUM LEVEL 141 MEQ/L (136-145); TOTAL PROTEIN 7.5 GM/DL (6.4-8.2)
[2017-02-13 18:59] LABS: METHADONE URINE NEGATIVE (NEGATIVE)
[2017-02-13] MEDS ORDERED: AMAN100C18 PO (19:52)
[2017-02-13] MEDS ORDERED: ABIL1TAB11 PO (19:52)
[2017-02-13] MEDS ORDERED: SERT-138 PO (19:52)
[2017-02-13] MEDS ORDERED: CLOZ100T2 PO (19:52)
[2017-02-13 20:26] VITALS: BP 126/78
[2017-02-13] MEDS ORDERED: lamoTRIgine 100MG TAB PO ONE (21:00)
[2017-02-13] MEDS ORDERED: traZODone 50 MG TAB PO ONE (21:00)
[2017-02-13] MEDS ORDERED: metFORMIN (GLUCOPHAGE) 1000 MG TABLET PO ONE (21:00)
[2017-02-13] MEDS ORDERED: cloNIDine 0.1 MG TAB PO ONE (21:00)
[2017-02-13] MEDS ORDERED: LITHIUM CARBONATE 600 MG CAP PO ONE (21:00)
[2017-02-13] MEDS ORDERED: cloZAPine 100 MG TAB (S0136) PO ONE (21:00)
[2017-02-14 02:56] VITALS: BP 138/96
--- NOTE | 2017-02-14 07:23 | ECGEPIP ---
Stationary ECG Study [facility] - ED Test Date: 2017-02-13 Pat Name: TORRES SANTA Department: Room: - Gender: F [employer] Supervisor: jeremías : 1995 Requested By: YANG KEENE Order Number: [id number] Reading MD: Jason Hugo Measurements Intervals [place] Rate: 80 P: 24 SC: 148 QRS: -4 QRSD: 100 T: 6 QT: 380 QTc: 441 Interpretive Statements SINUS RHYTHM POSSIBLE INFERIOR MYOCARDIAL INFARCTION, PROBABLY OLD NSTTW ABNORMALITIES SIMILAR TO 09/16/16 Electronically Signed On 02-14-2017 7:22:52 EST by Jsaon Hugo
== END 2017-02-14 02:59 | disposition short-term general hospital (02) ==
LOC: M ED 17:02
DX: F20.9 Schizophrenia, unspecified (principal); R45.851 Suicidal ideations; E66.9 Obesity, unspecified; E03.9 Hypothyroidism, unspecified; E73.9 Lactose intolerance, unspecified; Z79.84 Long term (current) use of oral hypoglycemic drugs; Z79.899 Other long term (current) drug therapy

== ENCOUNTER → 2017-02-13 | Outpatient (REF) | payer OTHER ==
[~2017-02-13] MED LIST changes: +ABIL1TAB11 PO; +AMAN100C18 PO; +PROP40TA PO
== END ==
LOC: M LAB REF 09:41
PROVIDERS: ATTEND Pediatrics Pediatric Endocrinology
DX: E03.2 Hypothyroidism due to medicaments and other exogenous substances (principal)

== ENCOUNTER → 2017-03-04 | Outpatient (REF) | payer OTHER | LOC: M LAB REF 16:45 | DX: R30.0 Dysuria (principal) ==

== ENCOUNTER 2017-04-20 18:36 | Inpatient (IN) | payer MEDICAID, OTHER ==
[2017-04-20] MEDS: ACETAMINOPHEN TAB 650MG DOSE (2X325MG) PO (19:15)
[2017-04-20 19:39] LABS: HEMATOCRIT 38.8 % (36.0-47.0); HEMOGLOBIN 12.7 g/dl (12.0-16.0); MEAN CORPUSCULAR HEMOGLOBIN 30.5 pg (27.0-33.0); MEAN CORPUSCULAR HGB CONC 32.7 g/dl (32.0-36.5); MEAN CORPUSCULAR VOLUME 93.3 fl (80.0-96.0); PLATELET COUNT, AUTOMATED 270 10^3/uL (150-450); RED BLOOD COUNT 4.16 10^6/uL (4.00-5.40); RED CELL DISTRIBUTION WIDTH 12.3 % (11.5-14.5); WHITE BLOOD COUNT 6.8 10^3/uL (4.0-10.0)
[2017-04-20 20:05] LABS: CONTROL LINE HCG INT CTR LINE PRESENT; HCG, SERUM QUALITATIVE NEGATIVE (NEGATIVE)
[2017-04-20 20:18] LABS: INFLUENZA A AMPLIFICATION NEGATIVE (NEGATIVE); INFLUENZA B AMPLIFICATION NEGATIVE (NEGATIVE)
[2017-04-20 20:19] LABS: ALBUMIN 3.9 GM/DL (3.2-5.2); ALBUMIN/GLOBULIN RATIO 1.18 (1.00-1.93); ALKALINE PHOSPHATASE 85 U/L (45-117); ALT/SGPT 31 U/L (12-78); ANION GAP 10 MEQ/L (8-16); AST/SGOT 23 U/L (7-37); BILIRUBIN,DIRECT < 0.1 MG/DL (0.0-0.2); BILIRUBIN,TOTAL 0.3 MG/DL (0.2-1.0); BLOOD UREA NITROGEN 14 MG/DL (7-18); CALCIUM LEVEL 8.7 MG/DL (8.5-10.1); CARBON DIOXIDE LEVEL 27 MEQ/L (21-32); CHLORIDE LEVEL 106 MEQ/L (98-107); CREATININE FOR GFR 0.82 MG/DL (0.55-1.30); ETHYL ALCOHOL (ETHANOL) 0.003 % (0.000-0.010); GLUCOSE, FASTING 99 MG/DL (70-100); SALICYLATE LEVEL < 1.7 MG/DL (5.0-30.0); SODIUM LEVEL 143 MEQ/L (136-145); THYROID STIMULATING HORMONE 0.795 uIU/ML (0.463-3.98); TOTAL PROTEIN 7.2 GM/DL (6.4-8.2)
[2017-04-20 20:20] LABS: LITHIUM LEVEL 0.58 MEQ/L (0.60-1.20)
[2017-04-20 20:21] LABS: ACETAMINOPHEN LEVEL < 2.0 UG/ML (10.0-30.0)
[2017-04-20] MEDS ORDERED: MAALOX 30 ML SUSP *UDC PO (20:30)
[2017-04-20] MEDS ORDERED: MOM 30ML SUSPENSION UDC PO (20:30)
[2017-04-20] MEDS ORDERED: diphenhydrAMINE 25 MG CAP PO (20:30)
[2017-04-20] MEDS ORDERED: traZODone 50 MG TAB PO (20:30)
[2017-04-20 21:12] LABS: AMPHETAMINES LEVEL URINE NEGATIVE (NEGATIVE); BARBITURATES URINE NEGATIVE (NEGATIVE); BENZODIAZEPINES URINE NEGATIVE (NEGATIVE); CANNABINOIDS URINE NEGATIVE (NEGATIVE); COCAINE METABOLITE URINE NEGATIVE (NEGATIVE); METHADONE URINE NEGATIVE (NEGATIVE); OPIATES URINE NEGATIVE (NEGATIVE); PHENCYCLIDINE URINE NEGATIVE (NEGATIVE)
[2017-04-20 21:26] LABS: KETONE, URINE AUTO RFX NEGATIVE (NEGATIVE); LEUKOCYTE ESTERASE UR AUTO RFX NEGATIVE (NEGATIVE); NITRITE, URINE AUTO RFX NEGATIVE (NEGATIVE); RBC, URINE AUTO RFX 0 /HPF (0-3); SPECIFIC GRAVITY UR AUTO RFX 1.009 (1.002-1.035); SQUAM EPITHELIAL CELL UR AURFX 9 /HPF (0-6); WBC, URINE AUTO RFX 2 /HPF (0-3)
[2017-04-20] MEDS: LORazepam 2 MG TAB PO (22:58)
[2017-04-21] MEDS: cloNIDine 0.1 MG TAB PO ×4 (01:14→21:00)
[2017-04-21] MEDS: cloZAPine 100 MG TAB (S0136) PO ×2 (01:15→21:00)
[2017-04-21] MEDS: PROPRANOLOL 20 MG TAB PO ×3 (01:15→21:00)
[2017-04-21] MEDS: lamoTRIgine 100MG TAB PO ×3 (01:15→21:00)
[2017-04-21] MEDS: LEVOTHYROXINE 75MCG TABLET (0.075MG) PO (06:13)
[2017-04-21 06:52] LABS: BEDSIDE GLUCOSE 86 MG/DL (70-105)
[2017-04-21] MEDS: AMANTADINE 100 MG CAP PO ×2 (07:05→17:25)
[2017-04-21 07:21] LABS: HEMATOCRIT 38.4 % (36.0-47.0); HEMOGLOBIN 12.7 g/dl (12.0-16.0); MEAN CORPUSCULAR HEMOGLOBIN 30.7 pg (27.0-33.0); MEAN CORPUSCULAR HGB CONC 33.1 g/dl (32.0-36.5); MEAN CORPUSCULAR VOLUME 92.8 fl (80.0-96.0); PLATELET COUNT, AUTOMATED 283 10^3/uL (150-450); RED BLOOD COUNT 4.14 10^6/uL (4.00-5.40); RED CELL DISTRIBUTION WIDTH 12.5 % (11.5-14.5); WHITE BLOOD COUNT 8.6 10^3/uL (4.0-10.0)
[2017-04-21 07:28] LABS: ADD MANUAL DIFFER YES; DIFF SLIDE NUMBER 91; POSITIVE DIFF POS FLAG
[2017-04-21 08:01] LABS: ATYPICAL LYMPH 5 % (0-5); BASOPHILS 1 % (0-4); LYMPHOCYTES 54 % (16-52); MONOCYTES 8 % (0-8); NEUTROPHILS 32 % (35-75)
[2017-04-21 08:02] LABS: PLATELET ESTIMATE NORMAL (NORMAL)
[2017-04-21] MEDS: MULTIVITAMINS/MINERALS THERAP 1 TAB PO (08:22)
[2017-04-21] MEDS ORDERED: HALOPERIDOL 5 MG/ML VIAL (J1630) As Ordered (15:34)
[2017-04-21] MEDS ORDERED: LORazepam 2 MG/ML VIAL (J2060) As Ordered (15:34)
[2017-04-21] MEDS ORDERED: diphenhydrAMINE INJ 50MG/ML VIAL (J1200) As Ordered (15:34)
[2017-04-21] MEDS: HALOPERIDOL 5 MG/ML VIAL (J1630) IM ×4 (15:41→21:55)
[2017-04-21] MEDS: diphenhydrAMINE INJ 50MG/ML VIAL (J1200) IM ×4 (15:42→21:56)
[2017-04-21] MEDS: LORazepam 2 MG/ML VIAL (J2060) IM ×4 (15:42→21:56)
[2017-04-21] MEDS: OLANZapine ORAL DISINTEGRATING TAB 5MG PO (17:10)
[2017-04-21] MEDS: metFORMIN XR 500MG TAB *GLUCOPHAGE XR PO (21:00)
[2017-04-21] MEDS ORDERED: metFORMIN (GLUCOPHAGE) 500 MG TAB PO (21:00)
[2017-04-22] MEDS: LEVOTHYROXINE 75MCG TABLET (0.075MG) PO (06:18)
[2017-04-22] MEDS: AMANTADINE 100 MG CAP PO ×2 (08:00→17:32)
[2017-04-22] MEDS ORDERED: BLISOVI PO (09:00)
[2017-04-22] MEDS: cloNIDine 0.1 MG TAB PO ×3 (09:00→22:44)
[2017-04-22] MEDS: PROPRANOLOL 20 MG TAB PO ×2 (09:00→22:42)
[2017-04-22] MEDS ORDERED: diphenhydrAMINE 25 MG CAP PO (16:30)
[2017-04-22] MEDS: cloZAPine 100 MG TAB (S0136) PO ×2 (17:26→22:42)
[2017-04-22] MEDS: lamoTRIgine 100MG TAB PO ×2 (17:26→22:44)
[2017-04-22] MEDS: OLANZapine ORAL DISINTEGRATING TAB 5MG PO (17:27)
[2017-04-22] MEDS: MULTIVITAMINS/MINERALS THERAP 1 TAB PO (17:31)
[2017-04-22] MEDS ORDERED: diphenhydrAMINE 50 MG CAP PO (17:32)
[2017-04-22] MEDS: ARIPiprazole 10 MG TAB PO (17:48)
[2017-04-22] MEDS: ALBUTEROL 90 MCG/ACT 8GM HFA INHALER INH (17:50)
[2017-04-22] MEDS: QUEtiapine FUMARATE 200 MG TAB PO ×2 (17:50→22:42)
[2017-04-22] MEDS ORDERED: QUEtiapine FUMARATE 200 MG TAB PO (21:00)
[2017-04-22] MEDS: metFORMIN XR 500MG TAB *GLUCOPHAGE XR PO (22:44)
[2017-04-23] MEDS: AMANTADINE 100 MG CAP PO ×2 (06:11→17:30)
[2017-04-23] MEDS: LEVOTHYROXINE 75MCG TABLET (0.075MG) PO (06:11)
[2017-04-23 06:48] LABS: BEDSIDE GLUCOSE 85 MG/DL (70-105)
[2017-04-23] MEDS: lamoTRIgine 100MG TAB PO ×2 (09:56→21:38)
[2017-04-23] MEDS: MULTIVITAMINS/MINERALS THERAP 1 TAB PO (09:56)
[2017-04-23] MEDS: cloNIDine 0.1 MG TAB PO ×3 (09:57→21:37)
[2017-04-23] MEDS: PROPRANOLOL 20 MG TAB PO ×2 (09:57→21:37)
[2017-04-23] MEDS: ARIPiprazole 10 MG TAB PO ×2 (09:57→21:37)
[2017-04-23] MEDS ORDERED: LORazepam 2 MG/ML VIAL (J2060) As Ordered (17:20)
[2017-04-23] MEDS ORDERED: HALOPERIDOL 5 MG/ML VIAL (J1630) As Ordered (17:21)
[2017-04-23] MEDS ORDERED: diphenhydrAMINE INJ 50MG/ML VIAL (J1200) As Ordered (17:22)
[2017-04-23] MEDS: LORazepam 2 MG/ML VIAL (J2060) IM (17:30)
[2017-04-23] MEDS: HALOPERIDOL 5 MG/ML VIAL (J1630) IM (17:30)
[2017-04-23] MEDS: diphenhydrAMINE INJ 50MG/ML VIAL (J1200) IM (17:30)
[2017-04-23] MEDS ORDERED: diphenhydrAMINE 50 MG CAP PO (18:30)
[2017-04-23] MEDS ORDERED: LORazepam 2 MG TAB PO (18:30)
[2017-04-23 20:50] LABS: BEDSIDE GLUCOSE 96 MG/DL (70-105)
[2017-04-23] MEDS: metFORMIN XR 500MG TAB *GLUCOPHAGE XR PO (21:38)
[2017-04-23] MEDS: QUEtiapine FUMARATE 200 MG TAB PO (21:38)
[2017-04-24 06:38] LABS: BEDSIDE GLUCOSE 84 MG/DL (70-105)
[2017-04-24] MEDS: AMANTADINE 100 MG CAP PO ×2 (06:57→17:07)
[2017-04-24] MEDS: LEVOTHYROXINE 75MCG TABLET (0.075MG) PO (06:57)
[2017-04-24] MEDS: MULTIVITAMINS/MINERALS THERAP 1 TAB PO (08:21)
[2017-04-24] MEDS: PROPRANOLOL 20 MG TAB PO ×2 (08:21→21:05)
[2017-04-24] MEDS: cloNIDine 0.1 MG TAB PO ×3 (08:21→21:07)
[2017-04-24] MEDS: ARIPiprazole 10 MG TAB PO ×2 (08:21→21:07)
[2017-04-24] MEDS: QUEtiapine FUMARATE 200 MG TAB PO ×2 (08:21→21:07)
[2017-04-24] MEDS: lamoTRIgine 100MG TAB PO ×2 (08:21→21:06)
[2017-04-24] MEDS: diphenhydrAMINE 50 MG CAP PO (13:09)
[2017-04-24] MEDS: HALOPERIDOL 10 MG TAB PO (15:25)
[2017-04-24] MEDS: LORazepam 2 MG TAB PO (15:25)
[2017-04-24 17:07] LABS: BEDSIDE GLUCOSE 111 MG/DL (70-105)
[2017-04-24 17:30] LABS: BEDSIDE GLUCOSE 98 MG/DL (70-105)
[2017-04-24] MEDS: ACETAMINOPHEN TAB 650MG DOSE (2X325MG) PO (19:41)
[2017-04-24] MEDS: ALBUTEROL 90 MCG/ACT 8GM HFA INHALER INH (21:05)
[2017-04-24] MEDS: cloZAPine 100 MG TAB (S0136) PO (21:06)
[2017-04-24] MEDS: metFORMIN XR 500MG TAB *GLUCOPHAGE XR PO (21:07)
[2017-04-25] MEDS: LEVOTHYROXINE 75MCG TABLET (0.075MG) PO (06:12)
[2017-04-25 06:45] LABS: BEDSIDE GLUCOSE 92 MG/DL (70-105)
[2017-04-25] MEDS: AMANTADINE 100 MG CAP PO ×2 (07:00→17:22)
[2017-04-25] MEDS: lamoTRIgine 100MG TAB PO ×2 (09:33→20:54)
[2017-04-25] MEDS: cloNIDine 0.1 MG TAB PO ×3 (09:33→20:53)
[2017-04-25] MEDS: PROPRANOLOL 20 MG TAB PO ×2 (09:33→20:54)
[2017-04-25] MEDS: MULTIVITAMINS/MINERALS THERAP 1 TAB PO (09:33)
[2017-04-25] MEDS: QUEtiapine FUMARATE 200 MG TAB PO ×2 (09:33→20:54)
[2017-04-25] MEDS: ARIPiprazole 10 MG TAB PO ×2 (09:34→20:53)
[2017-04-25] MEDS: HALOPERIDOL 5 MG/ML VIAL (J1630) IM ×2 (20:46→22:03)
[2017-04-25] MEDS: LORazepam 2 MG/ML VIAL (J2060) IM ×2 (20:46→22:03)
[2017-04-25] MEDS: metFORMIN XR 500MG TAB *GLUCOPHAGE XR PO (20:53)
[2017-04-25] MEDS: cloZAPine 100 MG TAB (S0136) PO (20:53)
[2017-04-26] MEDS: LEVOTHYROXINE 75MCG TABLET (0.075MG) PO (06:08)
[2017-04-26 08:57] LABS: BEDSIDE GLUCOSE 90 MG/DL (70-105)
[2017-04-26] MEDS: BLISOVI PO ×2 (09:00→21:12)
[2017-04-26] MEDS: MULTIVITAMINS/MINERALS THERAP 1 TAB PO (09:05)
[2017-04-26] MEDS: AMANTADINE 100 MG CAP PO ×2 (09:05→17:19)
[2017-04-26] MEDS: PROPRANOLOL 20 MG TAB PO ×2 (09:05→21:11)
[2017-04-26] MEDS: lamoTRIgine 100MG TAB PO ×2 (09:05→21:11)
[2017-04-26] MEDS: QUEtiapine FUMARATE 200 MG TAB PO ×2 (09:05→21:12)
[2017-04-26] MEDS: cloNIDine 0.1 MG TAB PO ×3 (09:05→21:11)
[2017-04-26] MEDS: ARIPiprazole 10 MG TAB PO ×2 (09:05→21:10)
[2017-04-26 17:25] LABS: BEDSIDE GLUCOSE 118 MG/DL (70-105)
[2017-04-26] MEDS: OLANZapine 5 MG TAB PO (18:55)
[2017-04-26] MEDS: metFORMIN XR 500MG TAB *GLUCOPHAGE XR PO (21:10)
[2017-04-26] MEDS: cloZAPine 100 MG TAB (S0136) PO (21:12)
[2017-04-27 06:31] LABS: BEDSIDE GLUCOSE 83 MG/DL (70-105)
[2017-04-27] MEDS: LEVOTHYROXINE 75MCG TABLET (0.075MG) PO (06:34)
[2017-04-27] MEDS: AMANTADINE 100 MG CAP PO ×2 (06:34→17:25)
[2017-04-27] MEDS: MULTIVITAMINS/MINERALS THERAP 1 TAB PO (09:26)
[2017-04-27] MEDS: QUEtiapine FUMARATE 200 MG TAB PO ×2 (09:27→21:08)
[2017-04-27] MEDS: cloNIDine 0.1 MG TAB PO ×3 (09:27→21:05)
[2017-04-27] MEDS: PROPRANOLOL 20 MG TAB PO ×2 (09:27→21:06)
[2017-04-27] MEDS: lamoTRIgine 100MG TAB PO ×2 (09:27→21:06)
[2017-04-27] MEDS: ARIPiprazole 10 MG TAB PO ×2 (09:27→21:06)
[2017-04-27 17:29] LABS: BEDSIDE GLUCOSE 133 MG/DL (70-105)
[2017-04-27] MEDS: OLANZapine 5 MG TAB PO (19:44)
[2017-04-27] MEDS: ALBUTEROL 90 MCG/ACT 8GM HFA INHALER INH (19:45)
[2017-04-27] MEDS: BLISOVI PO (21:00)
[2017-04-27] MEDS: cloZAPine 100 MG TAB (S0136) PO (21:01)
[2017-04-27] MEDS: metFORMIN XR 500MG TAB *GLUCOPHAGE XR PO (21:07)
[2017-04-28] MEDS: LEVOTHYROXINE 75MCG TABLET (0.075MG) PO (05:58)
[2017-04-28 06:24] LABS: BEDSIDE GLUCOSE 114 MG/DL (70-105)
[2017-04-28 07:21] LABS: HEMATOCRIT 37.7 % (36.0-47.0); HEMOGLOBIN 12.5 g/dl (12.0-16.0); MEAN CORPUSCULAR HEMOGLOBIN 30.6 pg (27.0-33.0); MEAN CORPUSCULAR HGB CONC 33.2 g/dl (32.0-36.5); MEAN CORPUSCULAR VOLUME 92.2 fl (80.0-96.0); PLATELET COUNT, AUTOMATED 269 10^3/uL (150-450); RED BLOOD COUNT 4.09 10^6/uL (4.00-5.40); RED CELL DISTRIBUTION WIDTH 11.8 % (11.5-14.5); WHITE BLOOD COUNT 8.1 10^3/uL (4.0-10.0)
[2017-04-28 07:26] LABS: ADD MANUAL DIFFER YES; DIFF SLIDE NUMBER 83; POSITIVE DIFF POS FLAG
[2017-04-28 07:51] LABS: ALBUMIN 3.8 GM/DL (3.2-5.2); ALBUMIN/GLOBULIN RATIO 1.19 (1.00-1.93); ALKALINE PHOSPHATASE 92 U/L (45-117); ALT/SGPT 25 U/L (12-78); ANION GAP 7 MEQ/L (8-16); AST/SGOT 14 U/L (7-37); BILIRUBIN,TOTAL 0.2 MG/DL (0.2-1.0); BLOOD UREA NITROGEN 17 MG/DL (7-18); CALCIUM LEVEL 9.1 MG/DL (8.5-10.1); CARBON DIOXIDE LEVEL 28 MEQ/L (21-32); CHLORIDE LEVEL 107 MEQ/L (98-107); CREATININE FOR GFR 0.89 MG/DL (0.55-1.30); GLUCOSE, FASTING 93 MG/DL (70-100); POTASSIUM SERUM 4.2 MEQ/L (3.5-5.1); SODIUM LEVEL 142 MEQ/L (136-145)
[2017-04-28 08:04] LABS: ATYPICAL LYMPH 5 % (0-5); LYMPHOCYTES 53 % (16-52); MONOCYTES 2 % (0-8); NEUTROPHILS 40 % (35-75); PLATELET ESTIMATE NORMAL (NORMAL)
[2017-04-28] MEDS: cloNIDine 0.1 MG TAB PO (08:43)
[2017-04-28] MEDS: AMANTADINE 100 MG CAP PO (08:43)
[2017-04-28] MEDS: MULTIVITAMINS/MINERALS THERAP 1 TAB PO (08:43)
[2017-04-28] MEDS: ARIPiprazole 10 MG TAB PO (08:44)
[2017-04-28] MEDS: lamoTRIgine 100MG TAB PO (08:44)
[2017-04-28] MEDS: PROPRANOLOL 20 MG TAB PO (08:44)
[2017-04-28] MEDS: QUEtiapine FUMARATE 200 MG TAB PO (08:44)
[2017-04-28] MEDS: LORazepam 2 MG TAB PO (12:10)
[2017-04-28] MEDS: diphenhydrAMINE 50 MG CAP PO (12:10)
[2017-04-28] MEDS: HALOPERIDOL 10 MG TAB PO (12:10)
[2017-04-29 00:06] LABS: CLOZAPINE 1 325 ng/mL (350-650); CLOZAPINE 2 212 ng/mL (Not Estab.); CLOZAPINE 3 537 (.)
== END 2017-04-28 14:40 | disposition home or self-care (01) | DRG 885 ==
LOC: M PSY 04-21 16:23 → M ED 18:36 → M ED INP 20:27 → M PSY 21:40
DX: F31.9 Bipolar disorder, unspecified (principal); F60.3 Borderline personality disorder; F71 Moderate intellectual disabilities; F25.9 Schizoaffective disorder, unspecified; E66.9 Obesity, unspecified; E73.9 Lactose intolerance, unspecified; E03.9 Hypothyroidism, unspecified; R73.01 Impaired fasting glucose; G47.00 Insomnia, unspecified; Z81.8 Family history of other mental and behavioral disorders; Z79.899 Other long term (current) drug therapy

== ENCOUNTER → 2017-05-30 | Outpatient (REF) | payer MEDICAID ==
[2017-05-30 20:08] LABS: CHOLESTEROL LEVEL 233 MG/DL (<200); CHOLESTEROL RISK RATIO 4.957 (<5); HDL CHOLESTEROL 47 MG/DL (>40); LDL CHOLESTEROL 108.6 MG/DL (<100); NON-HDL-C 186 MG/DL; TRIGLYCERIDES LEVEL 387 MG/DL (<150)
[2017-05-30 20:09] LABS: TOTAL 25(OH) VITAMIN D 18.2 NG/ML (30.0-100.0)
[2017-05-30 20:52] LABS: ESTIMATED AVERAGE GLUCOSE 94 MG/DL (60-110); HEMOGLOBIN A1c 4.9 %
== END ==
LOC: M LAB REF 17:27
DX: E66.01 Morbid (severe) obesity due to excess calories (principal); Z68.54 Body mass index [BMI] pediatric, 95th percentile for age to less than 120% of the 95th percentile for age
CPT/HCPCS: 83036

== ENCOUNTER 2017-08-23 18:33 | Inpatient (IN) | payer MEDICAID ==
[2017-08-23 19:32] LABS: HEMATOCRIT 36.5 % (36.0-47.0); HEMOGLOBIN 12.2 g/dl (12.0-15.5); MEAN CORPUSCULAR HGB CONC 33.4 g/dl (32.0-36.5); MEAN CORPUSCULAR VOLUME 92.6 fl (80.0-96.0); PLATELET COUNT, AUTOMATED 259 10^3/uL (150-450); RED BLOOD COUNT 3.94 10^6/uL (4.00-5.40); RED CELL DISTRIBUTION WIDTH 12.6 % (11.5-14.5); WHITE BLOOD COUNT 7.6 10^3/uL (4.0-10.0)
[2017-08-23 19:50] LABS: CONTROL LINE HCG INT CTR LINE PRESENT; HCG, SERUM QUALITATIVE NEGATIVE (NEGATIVE)
[2017-08-23 20:07] LABS: ALBUMIN 3.6 GM/DL (3.2-5.2); ALBUMIN/GLOBULIN RATIO 1.09 (1.00-1.93); ALKALINE PHOSPHATASE 84 U/L (45-117); ALT/SGPT 17 U/L (12-78); ANION GAP 10 MEQ/L (8-16); AST/SGOT 14 U/L (7-37); BILIRUBIN,DIRECT < 0.1 MG/DL (0.0-0.2); BILIRUBIN,TOTAL 0.2 MG/DL (0.2-1.0); BLOOD UREA NITROGEN 16 MG/DL (7-18); CALCIUM LEVEL 8.3 MG/DL (8.5-10.1); CARBON DIOXIDE LEVEL 23 MEQ/L (21-32); CHLORIDE LEVEL 111 MEQ/L (98-107); CREATININE FOR GFR 0.94 MG/DL (0.55-1.30); GLUCOSE, FASTING 88 MG/DL (70-100); POTASSIUM SERUM 4.1 MEQ/L (3.5-5.1); SALICYLATE LEVEL < 1.7 MG/DL (5.0-30.0); SODIUM LEVEL 144 MEQ/L (136-145); TOTAL PROTEIN 6.9 GM/DL (6.4-8.2)
[2017-08-23 20:09] LABS: ETHYL ALCOHOL (ETHANOL) < 0.003 % (0.000-0.010); LITHIUM LEVEL 0.55 MEQ/L (0.60-1.20)
[2017-08-23 20:10] LABS: ACETAMINOPHEN LEVEL < 2.0 UG/ML (10.0-30.0)
[2017-08-23 20:26] LABS: AMPHETAMINES LEVEL URINE NEGATIVE (NEGATIVE); BARBITURATES URINE NEGATIVE (NEGATIVE); BENZODIAZEPINES URINE NEGATIVE (NEGATIVE); CANNABINOIDS URINE NEGATIVE (NEGATIVE); COCAINE METABOLITE URINE NEGATIVE (NEGATIVE); METHADONE URINE NEGATIVE (NEGATIVE); OPIATES URINE NEGATIVE (NEGATIVE); PHENCYCLIDINE URINE NEGATIVE (NEGATIVE)
[2017-08-23] MEDS: cloZAPine 100 MG TAB (S0136) PO (21:00)
[2017-08-23] MEDS ORDERED: MOM 30ML SUSPENSION UDC PO (22:00)
[2017-08-23] MEDS ORDERED: MAALOX 30 ML SUSP *UDC PO (22:00)
[2017-08-24] MEDS: LEVOTHYROXINE 75MCG TABLET (0.075MG) PO (06:16)
[2017-08-24] MEDS: SERTRALINE 100 MG TAB PO (08:08)
[2017-08-24] MEDS: MULTIVITAMINS/MINERALS THERAP 1 TAB PO (08:08)
[2017-08-24] MEDS: AMANTADINE 100 MG CAP PO ×2 (08:08→17:05)
[2017-08-24] MEDS: metFORMIN XR 500MG TAB *GLUCOPHAGE XR PO ×2 (08:08→21:00)
[2017-08-24] MEDS: cloNIDine 0.1 MG TAB PO ×3 (08:09→21:00)
[2017-08-24] MEDS: QUEtiapine FUMARATE 200 MG TAB PO ×2 (08:09→21:00)
[2017-08-24] MEDS: TOPIRAMATE (TopAMAX) 25 MG TAB PO ×2 (08:09→17:05)
[2017-08-24] MEDS: LITHIUM CARBONATE 450 MG **CR** TAB PO ×2 (08:09→21:00)
[2017-08-24] MEDS: ACETAMINOPHEN TAB 650MG DOSE (2X325MG) PO (12:23)
[2017-08-24 12:32] LABS: BASO # 0.1 10^3/uL (0.0-0.2); BASO % 0.7 % (0.0-1.0); HEMATOCRIT 40.6 % (36.0-47.0); HEMOGLOBIN 13.4 g/dl (12.0-15.5); IMMATURE GRANULOCYTE % 0.4 % (0-3.0); LYMPH % 42.9 % (24.0-44.0); MEAN CORPUSCULAR HEMOGLOBIN 30.6 pg (27.0-33.0); MEAN CORPUSCULAR VOLUME 92.7 fl (80.0-96.0); MONO # 0.5 10^3/uL (0.0-0.8); MONO % 6.9 % (0.0-5.0); NEUTROPHILS # 3.4 10^3/uL (1.8-7.7); NEUTROPHILS % 49.1 % (36.0-66.0); PLATELET COUNT, AUTOMATED 268 10^3/uL (150-450); RED BLOOD COUNT 4.38 10^6/uL (4.00-5.40); RED CELL DISTRIBUTION WIDTH 12.5 % (11.5-14.5)
[2017-08-24] MEDS: cloZAPine 100 MG TAB (S0136) PO (21:00)
[2017-08-24] MEDS: HALOPERIDOL 5 MG/ML VIAL (J1630) IM ×2 (21:46→22:23)
[2017-08-24] MEDS: LORazepam 2 MG/ML VIAL (J2060) IM (21:46)
[2017-08-25] MEDS: LEVOTHYROXINE 75MCG TABLET (0.075MG) PO (06:10)
[2017-08-25] MEDS: AMANTADINE 100 MG CAP PO ×2 (08:17→17:19)
[2017-08-25] MEDS: JUNEL FE PO (08:17)
[2017-08-25] MEDS: LITHIUM CARBONATE 450 MG **CR** TAB PO ×2 (08:18→21:00)
[2017-08-25] MEDS: TOPIRAMATE (TopAMAX) 25 MG TAB PO ×2 (08:18→17:19)
[2017-08-25] MEDS: SERTRALINE 100 MG TAB PO (08:18)
[2017-08-25] MEDS: cloNIDine 0.1 MG TAB PO ×3 (08:19→21:00)
[2017-08-25] MEDS: metFORMIN XR 500MG TAB *GLUCOPHAGE XR PO ×2 (08:20→21:00)
[2017-08-25] MEDS: QUEtiapine FUMARATE 200 MG TAB PO ×2 (08:20→21:00)
[2017-08-25] MEDS: ACETAMINOPHEN TAB 650MG DOSE (2X325MG) PO ×2 (08:20→15:34)
[2017-08-25] MEDS: MULTIVITAMINS/MINERALS THERAP 1 TAB PO (08:20)
[2017-08-25] MEDS: HALOPERIDOL 5 MG/ML VIAL (J1630) IM ×3 (18:18→20:56)
[2017-08-25] MEDS: diphenhydrAMINE INJ 50MG/ML VIAL (J1200) IM ×3 (18:18→20:57)
[2017-08-25] MEDS: LORazepam 2 MG/ML VIAL (J2060) IM ×3 (18:19→20:56)
[2017-08-25] MEDS: cloZAPine 100 MG TAB (S0136) PO (21:00)
[2017-08-26] MEDS: LEVOTHYROXINE 75MCG TABLET (0.075MG) PO (06:14)
[2017-08-26] MEDS: metFORMIN XR 500MG TAB *GLUCOPHAGE XR PO ×2 (08:39→20:08)
[2017-08-26] MEDS: QUEtiapine FUMARATE 200 MG TAB PO ×2 (08:39→20:09)
[2017-08-26] MEDS: LITHIUM CARBONATE 450 MG **CR** TAB PO ×2 (08:39→20:09)
[2017-08-26] MEDS: AMANTADINE 100 MG CAP PO ×2 (08:40→17:24)
[2017-08-26] MEDS: JUNEL FE PO (08:40)
[2017-08-26] MEDS: TOPIRAMATE (TopAMAX) 25 MG TAB PO ×2 (08:40→17:24)
[2017-08-26] MEDS: MULTIVITAMINS/MINERALS THERAP 1 TAB PO (08:40)
[2017-08-26] MEDS: SERTRALINE 100 MG TAB PO (08:40)
[2017-08-26] MEDS: cloNIDine 0.1 MG TAB PO ×3 (08:40→20:09)
[2017-08-26 10:43] LABS: LAMOTRIGINE (LAMICTAL) 1.8 ug/mL (2.0-20.0)
[2017-08-26] MEDS: ACETAMINOPHEN TAB 650MG DOSE (2X325MG) PO (17:24)
[2017-08-26] MEDS: cloZAPine 100 MG TAB (S0136) PO (20:09)
[2017-08-27] MEDS: LEVOTHYROXINE 75MCG TABLET (0.075MG) PO (06:11)
[2017-08-27] MEDS: AMANTADINE 100 MG CAP PO ×2 (08:00→17:38)
[2017-08-27] MEDS: QUEtiapine FUMARATE 200 MG TAB PO ×2 (08:13→20:30)
[2017-08-27] MEDS: JUNEL FE PO (08:13)
[2017-08-27] MEDS: MULTIVITAMINS/MINERALS THERAP 1 TAB PO (08:13)
[2017-08-27] MEDS: SERTRALINE 100 MG TAB PO (08:14)
[2017-08-27] MEDS: LITHIUM CARBONATE 450 MG **CR** TAB PO ×2 (08:14→20:32)
[2017-08-27] MEDS: metFORMIN XR 500MG TAB *GLUCOPHAGE XR PO ×2 (08:14→20:33)
[2017-08-27] MEDS: TOPIRAMATE (TopAMAX) 25 MG TAB PO ×2 (08:14→17:38)
[2017-08-27] MEDS: cloNIDine 0.1 MG TAB PO ×3 (08:18→20:32)
[2017-08-27] MEDS: ACETAMINOPHEN TAB 650MG DOSE (2X325MG) PO (20:29)
[2017-08-27] MEDS: cloZAPine 100 MG TAB (S0136) PO (20:32)
[2017-08-27] MEDS: LORazepam 2 MG TAB PO ×2 (20:33→20:39)
[2017-08-27] MEDS: OLANZapine ORAL DISINTEGRATING TAB 5MG PO (20:38)
[2017-08-28] MEDS: LEVOTHYROXINE 75MCG TABLET (0.075MG) PO (06:14)
[2017-08-28] MEDS: JUNEL FE PO (08:19)
[2017-08-28] MEDS: metFORMIN XR 500MG TAB *GLUCOPHAGE XR PO ×2 (08:19→20:14)
[2017-08-28] MEDS: LITHIUM CARBONATE 450 MG **CR** TAB PO ×2 (08:20→20:14)
[2017-08-28] MEDS: AMANTADINE 100 MG CAP PO (08:20)
[2017-08-28] MEDS: MULTIVITAMINS/MINERALS THERAP 1 TAB PO (08:20)
[2017-08-28] MEDS: TOPIRAMATE (TopAMAX) 25 MG TAB PO (08:20)
[2017-08-28] MEDS: cloNIDine 0.1 MG TAB PO ×3 (08:20→20:14)
[2017-08-28] MEDS: LORazepam 2 MG TAB PO ×3 (08:20→18:30)
[2017-08-28] MEDS: SERTRALINE 100 MG TAB PO (08:20)
[2017-08-28] MEDS: QUEtiapine FUMARATE 200 MG TAB PO ×2 (08:20→20:15)
[2017-08-28] MEDS: OLANZapine ORAL DISINTEGRATING TAB 5MG PO (13:17)
[2017-08-28] MEDS: LORazepam 2 MG/ML VIAL (J2060) IM (15:43)
[2017-08-28] MEDS: OLANZapine INTRAMUSCULAR 10 MG VIAL (S0166) IM (16:54)
[2017-08-28] MEDS: diphenhydrAMINE INJ 50MG/ML VIAL (J1200) IM (16:54)
[2017-08-28] MEDS: cloZAPine 100 MG TAB (S0136) PO (20:14)
[2017-08-28] MEDS: traZODone 50 MG TAB PO (20:14)
[2017-08-29] MEDS: LEVOTHYROXINE 75MCG TABLET (0.075MG) PO (06:30)
[2017-08-29] MEDS: TOPIRAMATE (TopAMAX) 25 MG TAB PO ×2 (08:00→17:42)
[2017-08-29] MEDS: AMANTADINE 100 MG CAP PO ×2 (08:00→17:42)
[2017-08-29] MEDS: JUNEL FE PO (08:36)
[2017-08-29] MEDS: LITHIUM CARBONATE 450 MG **CR** TAB PO ×2 (08:38→21:03)
[2017-08-29] MEDS: cloNIDine 0.1 MG TAB PO ×3 (08:38→21:05)
[2017-08-29] MEDS: metFORMIN XR 500MG TAB *GLUCOPHAGE XR PO ×2 (08:39→21:03)
[2017-08-29] MEDS: QUEtiapine FUMARATE 200 MG TAB PO ×2 (08:39→21:03)
[2017-08-29] MEDS: SERTRALINE 100 MG TAB PO (08:39)
[2017-08-29] MEDS: MULTIVITAMINS/MINERALS THERAP 1 TAB PO (08:39)
[2017-08-29] MEDS: cloZAPine 100 MG TAB (S0136) PO (21:03)
[2017-08-29] MEDS: traZODone 50 MG TAB PO (21:41)
[2017-08-30] MEDS: LEVOTHYROXINE 75MCG TABLET (0.075MG) PO (06:17)
[2017-08-30] MEDS: metFORMIN XR 500MG TAB *GLUCOPHAGE XR PO ×2 (09:10→20:47)
[2017-08-30] MEDS: AMANTADINE 100 MG CAP PO ×2 (09:10→18:12)
[2017-08-30] MEDS: cloNIDine 0.1 MG TAB PO ×3 (09:11→20:49)
[2017-08-30] MEDS: JUNEL FE PO (09:11)
[2017-08-30] MEDS: TOPIRAMATE (TopAMAX) 25 MG TAB PO ×2 (09:11→18:12)
[2017-08-30] MEDS: MULTIVITAMINS/MINERALS THERAP 1 TAB PO (09:11)
[2017-08-30] MEDS: QUEtiapine FUMARATE 200 MG TAB PO ×2 (09:11→20:46)
[2017-08-30] MEDS: SERTRALINE 100 MG TAB PO (09:11)
[2017-08-30] MEDS: LITHIUM CARBONATE 450 MG **CR** TAB PO ×2 (09:11→20:47)
[2017-08-30] MEDS: cloZAPine 100 MG TAB (S0136) PO (20:47)
[2017-08-31] MEDS: LEVOTHYROXINE 75MCG TABLET (0.075MG) PO (06:10)
[2017-08-31] MEDS: LITHIUM CARBONATE 450 MG **CR** TAB PO ×2 (09:00→21:01)
[2017-08-31] MEDS: metFORMIN XR 500MG TAB *GLUCOPHAGE XR PO ×2 (09:00→21:00)
[2017-08-31] MEDS: MULTIVITAMINS/MINERALS THERAP 1 TAB PO (09:00)
[2017-08-31] MEDS: SERTRALINE 100 MG TAB PO (09:00)
[2017-08-31] MEDS: TOPIRAMATE (TopAMAX) 25 MG TAB PO ×2 (09:00→17:53)
[2017-08-31] MEDS: AMANTADINE 100 MG CAP PO ×2 (09:00→17:53)
[2017-08-31] MEDS: QUEtiapine FUMARATE 200 MG TAB PO ×2 (09:00→21:00)
[2017-08-31] MEDS: JUNEL FE PO (09:01)
[2017-08-31] MEDS: cloNIDine 0.1 MG TAB PO ×3 (09:01→21:01)
[2017-08-31] MEDS: ALBUTEROL 90 MCG/ACT 8GM HFA INHALER INH (21:00)
[2017-08-31] MEDS: cloZAPine 100 MG TAB (S0136) PO (21:01)
[2017-08-31] MEDS: diphenhydrAMINE 50 MG CAP PO (21:27)
[2017-08-31] MEDS: LORazepam 2 MG TAB PO (21:27)
[2017-09-01] MEDS: LEVOTHYROXINE 75MCG TABLET (0.075MG) PO (06:35)
[2017-09-01] MEDS: metFORMIN XR 500MG TAB *GLUCOPHAGE XR PO ×2 (09:09→21:16)
[2017-09-01] MEDS: QUEtiapine FUMARATE 200 MG TAB PO ×2 (09:09→21:15)
[2017-09-01] MEDS: LITHIUM CARBONATE 450 MG **CR** TAB PO ×2 (09:09→21:15)
[2017-09-01] MEDS: SERTRALINE 100 MG TAB PO (09:10)
[2017-09-01] MEDS: AMANTADINE 100 MG CAP PO ×2 (09:10→17:37)
[2017-09-01] MEDS: MULTIVITAMINS/MINERALS THERAP 1 TAB PO (09:10)
[2017-09-01] MEDS: TOPIRAMATE (TopAMAX) 25 MG TAB PO ×2 (09:10→17:37)
[2017-09-01] MEDS: cloNIDine 0.1 MG TAB PO ×3 (09:10→21:15)
[2017-09-01] MEDS: JUNEL FE PO (09:10)
[2017-09-01] MEDS: ARIPiprazole MONOHYDRATE 400 MG INJ (ABILIFY)(J0401) IM (09:59)
[2017-09-01] MEDS: LORazepam 2 MG TAB PO (15:33)
[2017-09-01] MEDS: diphenhydrAMINE 50 MG CAP PO (15:33)
[2017-09-01] MEDS: cloZAPine 100 MG TAB (S0136) PO (21:14)
[2017-09-01] MEDS: ALBUTEROL 90 MCG/ACT 8GM HFA INHALER INH (21:17)
[2017-09-02] MEDS: LEVOTHYROXINE 75MCG TABLET (0.075MG) PO (06:21)
[2017-09-02] MEDS: JUNEL FE PO (08:33)
[2017-09-02] MEDS: AMANTADINE 100 MG CAP PO ×2 (08:33→17:50)
[2017-09-02] MEDS: QUEtiapine FUMARATE 200 MG TAB PO ×2 (08:33→21:11)
[2017-09-02] MEDS: MULTIVITAMINS/MINERALS THERAP 1 TAB PO (08:33)
[2017-09-02] MEDS: TOPIRAMATE (TopAMAX) 25 MG TAB PO ×2 (08:33→17:50)
[2017-09-02] MEDS: SERTRALINE 100 MG TAB PO (08:33)
[2017-09-02] MEDS: LITHIUM CARBONATE 450 MG **CR** TAB PO ×2 (08:34→21:11)
[2017-09-02] MEDS: metFORMIN XR 500MG TAB *GLUCOPHAGE XR PO ×2 (08:34→21:11)
[2017-09-02] MEDS: cloNIDine 0.1 MG TAB PO ×3 (08:34→21:12)
[2017-09-02] MEDS: ALBUTEROL 90 MCG/ACT 8GM HFA INHALER INH ×2 (08:35→21:13)
[2017-09-02] MEDS: LORazepam 2 MG TAB PO (10:01)
[2017-09-02] MEDS: diphenhydrAMINE 50 MG CAP PO (10:01)
[2017-09-02] MEDS: cloZAPine 100 MG TAB (S0136) PO (21:11)
[2017-09-03] MEDS: LEVOTHYROXINE 75MCG TABLET (0.075MG) PO (06:10)
[2017-09-03 06:34] LABS: BASO % 0.3 % (0.0-1.0); HEMATOCRIT 38.8 % (36.0-47.0); HEMOGLOBIN 12.8 g/dl (12.0-15.5); IMMATURE GRANULOCYTE % 0.2 % (0-3.0); LYMPH # 4.3 10^3/uL (1.5-6.5); LYMPH % 47.9 % (24.0-44.0); MEAN CORPUSCULAR VOLUME 93.9 fl (80.0-96.0); MONO # 0.6 10^3/uL (0.0-0.8); MONO % 6.6 % (0.0-5.0); PLATELET COUNT, AUTOMATED 274 10^3/uL (150-450); RED BLOOD COUNT 4.13 10^6/uL (4.00-5.40); RED CELL DISTRIBUTION WIDTH 12.3 % (11.5-14.5); WHITE BLOOD COUNT 8.9 10^3/uL (4.0-10.0)
[2017-09-03] MEDS: JUNEL FE PO (08:23)
[2017-09-03] MEDS: SERTRALINE 100 MG TAB PO (08:23)
[2017-09-03] MEDS: QUEtiapine FUMARATE 200 MG TAB PO ×2 (08:24→21:24)
[2017-09-03] MEDS: metFORMIN XR 500MG TAB *GLUCOPHAGE XR PO ×2 (08:24→21:22)
[2017-09-03] MEDS: cloNIDine 0.1 MG TAB PO ×3 (08:24→21:23)
[2017-09-03] MEDS: TOPIRAMATE (TopAMAX) 25 MG TAB PO ×2 (08:25→17:25)
[2017-09-03] MEDS: LITHIUM CARBONATE 450 MG **CR** TAB PO ×2 (08:25→21:24)
[2017-09-03] MEDS: AMANTADINE 100 MG CAP PO ×2 (08:25→17:25)
[2017-09-03] MEDS: MULTIVITAMINS/MINERALS THERAP 1 TAB PO (08:25)
[2017-09-03] MEDS: cloZAPine 100 MG TAB (S0136) PO (21:22)
[2017-09-04] MEDS: LEVOTHYROXINE 75MCG TABLET (0.075MG) PO (06:01)
[2017-09-04] MEDS: JUNEL FE PO (08:32)
[2017-09-04] MEDS: ALBUTEROL 90 MCG/ACT 8GM HFA INHALER INH (08:35)
[2017-09-04] MEDS: TOPIRAMATE (TopAMAX) 25 MG TAB PO ×2 (08:36→17:11)
[2017-09-04] MEDS: QUEtiapine FUMARATE 200 MG TAB PO ×2 (08:36→21:00)
[2017-09-04] MEDS: cloNIDine 0.1 MG TAB PO ×3 (08:36→21:26)
[2017-09-04] MEDS: SERTRALINE 100 MG TAB PO (08:36)
[2017-09-04] MEDS: LITHIUM CARBONATE 450 MG **CR** TAB PO ×2 (08:37→21:26)
[2017-09-04] MEDS: MULTIVITAMINS/MINERALS THERAP 1 TAB PO (08:37)
[2017-09-04] MEDS: metFORMIN XR 500MG TAB *GLUCOPHAGE XR PO ×2 (08:37→21:27)
[2017-09-04] MEDS: AMANTADINE 100 MG CAP PO ×2 (08:37→17:11)
[2017-09-04] MEDS: LORazepam 2 MG/ML VIAL (J2060) IM (18:35)
[2017-09-04] MEDS: diphenhydrAMINE INJ 50MG/ML VIAL (J1200) IM (18:35)
[2017-09-04] MEDS: HALOPERIDOL 5 MG/ML VIAL (J1630) IM (18:35)
[2017-09-04] MEDS: cloZAPine 100 MG TAB (S0136) PO (21:27)
[2017-09-04] MEDS: traZODone 50 MG TAB PO (23:11)
[2017-09-05] MEDS: LEVOTHYROXINE 75MCG TABLET (0.075MG) PO (06:15)
[2017-09-05] MEDS: SERTRALINE 100 MG TAB PO (08:55)
[2017-09-05] MEDS: cloNIDine 0.1 MG TAB PO ×3 (08:55→21:54)
[2017-09-05] MEDS: QUEtiapine FUMARATE 200 MG TAB PO ×2 (08:55→21:54)
[2017-09-05] MEDS: LITHIUM CARBONATE 450 MG **CR** TAB PO ×2 (08:56→21:54)
[2017-09-05] MEDS: TOPIRAMATE (TopAMAX) 25 MG TAB PO ×2 (08:56→17:40)
[2017-09-05] MEDS: MULTIVITAMINS/MINERALS THERAP 1 TAB PO (08:56)
[2017-09-05] MEDS: LORazepam 2 MG TAB PO ×2 (08:56→21:54)
[2017-09-05] MEDS: AMANTADINE 100 MG CAP PO ×2 (08:56→17:40)
[2017-09-05] MEDS: JUNEL FE PO (08:57)
[2017-09-05] MEDS: metFORMIN XR 500MG TAB *GLUCOPHAGE XR PO ×2 (08:57→21:55)
[2017-09-05] MEDS: diphenhydrAMINE 50 MG CAP PO (21:53)
[2017-09-05] MEDS: cloZAPine 100 MG TAB (S0136) PO (21:54)
[2017-09-06 00:07] LABS: CLOZAPINE 1 437 ng/mL (350-650); CLOZAPINE 2 296 ng/mL (Not Estab.); CLOZAPINE 3 733 ng/mL (.)
[2017-09-06] MEDS: LEVOTHYROXINE 75MCG TABLET (0.075MG) PO (06:06)
[2017-09-06] MEDS: JUNEL FE PO (09:21)
[2017-09-06] MEDS: LITHIUM CARBONATE 450 MG **CR** TAB PO ×2 (09:23→21:35)
[2017-09-06] MEDS: metFORMIN XR 500MG TAB *GLUCOPHAGE XR PO ×2 (09:23→16:32)
[2017-09-06] MEDS: SERTRALINE 100 MG TAB PO (09:23)
[2017-09-06] MEDS: MULTIVITAMINS/MINERALS THERAP 1 TAB PO (09:24)
[2017-09-06] MEDS: AMANTADINE 100 MG CAP PO ×2 (09:24→18:58)
[2017-09-06] MEDS: TOPIRAMATE (TopAMAX) 25 MG TAB PO ×2 (09:24→18:58)
[2017-09-06] MEDS: cloNIDine 0.1 MG TAB PO ×3 (09:24→21:34)
[2017-09-06] MEDS: QUEtiapine FUMARATE 200 MG TAB PO ×2 (09:25→21:36)
[2017-09-06] MEDS ORDERED: diphenhydrAMINE 50 MG CAP PO (16:17)
[2017-09-06] MEDS: LORazepam 1 MG TAB PO (16:32)
[2017-09-06] MEDS: diphenhydrAMINE 25 MG CAP PO (16:48)
[2017-09-06] MEDS: cloZAPine 100 MG TAB (S0136) PO (21:35)
[2017-09-06] MEDS: ALBUTEROL 90 MCG/ACT 8GM HFA INHALER INH (21:36)
[2017-09-07] MEDS: LEVOTHYROXINE 75MCG TABLET (0.075MG) PO (06:05)
[2017-09-07] MEDS: JUNEL FE PO (09:09)
[2017-09-07] MEDS: TOPIRAMATE (TopAMAX) 25 MG TAB PO ×2 (09:10→17:22)
[2017-09-07] MEDS: MULTIVITAMINS/MINERALS THERAP 1 TAB PO (09:10)
[2017-09-07] MEDS: AMANTADINE 100 MG CAP PO ×2 (09:10→17:23)
[2017-09-07] MEDS: SERTRALINE 100 MG TAB PO (09:10)
[2017-09-07] MEDS: metFORMIN XR 500MG TAB *GLUCOPHAGE XR PO ×2 (09:10→17:23)
[2017-09-07] MEDS: QUEtiapine FUMARATE 200 MG TAB PO ×2 (09:10→19:55)
[2017-09-07] MEDS: LITHIUM CARBONATE 450 MG **CR** TAB PO ×2 (09:11→19:53)
[2017-09-07] MEDS: cloNIDine 0.1 MG TAB PO ×3 (09:11→19:54)
[2017-09-07] MEDS: diphenhydrAMINE 50 MG CAP PO (16:19)
[2017-09-07] MEDS: LORazepam 2 MG TAB PO (16:19)
[2017-09-07] MEDS: traZODone 50 MG TAB PO (19:53)
[2017-09-07] MEDS: cloZAPine 100 MG TAB (S0136) PO (19:54)
[2017-09-07] MEDS: ALBUTEROL 90 MCG/ACT 8GM HFA INHALER INH (19:55)
[2017-09-08] MEDS: LEVOTHYROXINE 75MCG TABLET (0.075MG) PO (06:06)
[2017-09-08] MEDS: metFORMIN XR 500MG TAB *GLUCOPHAGE XR PO ×2 (07:56→18:09)
[2017-09-08] MEDS: LITHIUM CARBONATE 450 MG **CR** TAB PO ×2 (07:57→20:22)
[2017-09-08] MEDS: AMANTADINE 100 MG CAP PO ×2 (07:57→17:57)
[2017-09-08] MEDS: QUEtiapine FUMARATE 200 MG TAB PO ×2 (07:57→21:16)
[2017-09-08] MEDS: TOPIRAMATE (TopAMAX) 25 MG TAB PO ×2 (07:57→17:58)
[2017-09-08] MEDS: SERTRALINE 100 MG TAB PO (07:57)
[2017-09-08] MEDS: MULTIVITAMINS/MINERALS THERAP 1 TAB PO (07:57)
[2017-09-08] MEDS: JUNEL FE PO (07:58)
[2017-09-08] MEDS: cloNIDine 0.1 MG TAB PO ×3 (07:58→20:23)
[2017-09-08] MEDS: ALBUTEROL 90 MCG/ACT 8GM HFA INHALER INH ×2 (08:00→20:24)
[2017-09-08] MEDS: ACETAMINOPHEN TAB 650MG DOSE (2X325MG) PO (19:39)
[2017-09-08] MEDS: cloZAPine 100 MG TAB (S0136) PO (20:23)
[2017-09-08] MEDS: diphenhydrAMINE 50 MG CAP PO (21:16)
[2017-09-08] MEDS: traZODone 50 MG TAB PO (21:16)
[2017-09-09] MEDS: LEVOTHYROXINE 75MCG TABLET (0.075MG) PO (06:06)
[2017-09-09] MEDS: ACETAMINOPHEN TAB 650MG DOSE (2X325MG) PO (06:10)
[2017-09-09] MEDS: AMANTADINE 100 MG CAP PO ×2 (08:44→17:19)
[2017-09-09] MEDS: TOPIRAMATE (TopAMAX) 25 MG TAB PO ×2 (08:44→17:19)
[2017-09-09] MEDS: MULTIVITAMINS/MINERALS THERAP 1 TAB PO (08:44)
[2017-09-09] MEDS: cloNIDine 0.1 MG TAB PO ×3 (08:44→20:52)
[2017-09-09] MEDS: LITHIUM CARBONATE 450 MG **CR** TAB PO ×2 (08:44→20:53)
[2017-09-09] MEDS: QUEtiapine FUMARATE 200 MG TAB PO ×2 (08:44→20:50)
[2017-09-09] MEDS: JUNEL FE PO (08:45)
[2017-09-09] MEDS: SERTRALINE 100 MG TAB PO (08:45)
[2017-09-09] MEDS: metFORMIN XR 500MG TAB *GLUCOPHAGE XR PO ×2 (08:45→17:19)
[2017-09-09 16:45] LABS: BASO % 0.4 % (0.0-1.0); HEMATOCRIT 39.2 % (36.0-47.0); HEMOGLOBIN 13.1 g/dl (12.0-15.5); IMMATURE GRANULOCYTE % 0.4 % (0-3.0); LYMPH # 3.6 10^3/uL (1.5-6.5); LYMPH % 44.6 % (24.0-44.0); MEAN CORPUSCULAR HGB CONC 33.4 g/dl (32.0-36.5); MEAN CORPUSCULAR VOLUME 92.9 fl (80.0-96.0); MONO # 0.6 10^3/uL (0.0-0.8); MONO % 7.1 % (0.0-5.0); NEUTROPHILS # 3.8 10^3/uL (1.8-7.7); NEUTROPHILS % 47.5 % (36.0-66.0); PLATELET COUNT, AUTOMATED 244 10^3/uL (150-450); RED BLOOD COUNT 4.22 10^6/uL (4.00-5.40); RED CELL DISTRIBUTION WIDTH 12.2 % (11.5-14.5)
[2017-09-09] MEDS: traZODone 50 MG TAB PO (20:52)
[2017-09-09] MEDS: cloZAPine 100 MG TAB (S0136) PO (20:52)
[2017-09-09] MEDS: diphenhydrAMINE 50 MG CAP PO (20:53)
[2017-09-09] MEDS: ALBUTEROL 90 MCG/ACT 8GM HFA INHALER INH (20:55)
[2017-09-10] MEDS: LEVOTHYROXINE 75MCG TABLET (0.075MG) PO (05:46)
[2017-09-10] MEDS: ACETAMINOPHEN TAB 650MG DOSE (2X325MG) PO ×2 (06:03→21:18)
[2017-09-10] MEDS: JUNEL FE PO (08:06)
[2017-09-10] MEDS: LITHIUM CARBONATE 450 MG **CR** TAB PO ×2 (08:07→21:13)
[2017-09-10] MEDS: SERTRALINE 100 MG TAB PO (08:07)
[2017-09-10] MEDS: metFORMIN XR 500MG TAB *GLUCOPHAGE XR PO ×2 (08:07→17:23)
[2017-09-10] MEDS: ALBUTEROL 90 MCG/ACT 8GM HFA INHALER INH ×2 (08:07→21:17)
[2017-09-10] MEDS: QUEtiapine FUMARATE 200 MG TAB PO ×2 (08:07→21:13)
[2017-09-10] MEDS: AMANTADINE 100 MG CAP PO ×2 (08:08→17:23)
[2017-09-10] MEDS: MULTIVITAMINS/MINERALS THERAP 1 TAB PO (08:08)
[2017-09-10] MEDS: TOPIRAMATE (TopAMAX) 25 MG TAB PO ×2 (08:08→17:23)
[2017-09-10] MEDS: cloNIDine 0.1 MG TAB PO ×3 (08:08→21:14)
[2017-09-10] MEDS: diphenhydrAMINE 50 MG CAP PO (18:40)
[2017-09-10] MEDS: LORazepam 2 MG TAB PO (18:40)
[2017-09-10] MEDS: cloZAPine 100 MG TAB (S0136) PO (21:13)
[2017-09-10] MEDS: traZODone 50 MG TAB PO (22:04)
[2017-09-11] MEDS: LEVOTHYROXINE 75MCG TABLET (0.075MG) PO (05:44)
[2017-09-11] MEDS: JUNEL FE PO (08:45)
[2017-09-11] MEDS: metFORMIN XR 500MG TAB *GLUCOPHAGE XR PO ×2 (08:45→17:43)
[2017-09-11] MEDS: QUEtiapine FUMARATE 200 MG TAB PO ×2 (08:45→21:15)
[2017-09-11] MEDS: LITHIUM CARBONATE 450 MG **CR** TAB PO ×2 (08:45→21:15)
[2017-09-11] MEDS: TOPIRAMATE (TopAMAX) 25 MG TAB PO ×2 (08:46→17:43)
[2017-09-11] MEDS: AMANTADINE 100 MG CAP PO ×2 (08:46→17:43)
[2017-09-11] MEDS: MULTIVITAMINS/MINERALS THERAP 1 TAB PO (08:46)
[2017-09-11] MEDS: cloNIDine 0.1 MG TAB PO ×3 (08:46→21:16)
[2017-09-11] MEDS: SERTRALINE 100 MG TAB PO (08:46)
[2017-09-11] MEDS: ACETAMINOPHEN TAB 650MG DOSE (2X325MG) PO (19:42)
[2017-09-11] MEDS: diphenhydrAMINE 50 MG CAP PO (21:15)
[2017-09-11] MEDS: cloZAPine 100 MG TAB (S0136) PO (21:15)
[2017-09-11] MEDS: traZODone 50 MG TAB PO (21:15)
[2017-09-11] MEDS: ALBUTEROL 90 MCG/ACT 8GM HFA INHALER INH (21:16)
[2017-09-12] MEDS: LEVOTHYROXINE 75MCG TABLET (0.075MG) PO (06:08)
[2017-09-12] MEDS: ALBUTEROL 90 MCG/ACT 8GM HFA INHALER INH ×2 (08:12→20:59)
[2017-09-12] MEDS: JUNEL FE PO (08:12)
[2017-09-12] MEDS: SERTRALINE 100 MG TAB PO (08:13)
[2017-09-12] MEDS: metFORMIN XR 500MG TAB *GLUCOPHAGE XR PO ×2 (08:13→17:25)
[2017-09-12] MEDS: MULTIVITAMINS/MINERALS THERAP 1 TAB PO (08:13)
[2017-09-12] MEDS: QUEtiapine FUMARATE 200 MG TAB PO ×2 (08:13→21:16)
[2017-09-12] MEDS: AMANTADINE 100 MG CAP PO ×2 (08:14→17:25)
[2017-09-12] MEDS: cloNIDine 0.1 MG TAB PO ×3 (08:14→20:58)
[2017-09-12] MEDS: TOPIRAMATE (TopAMAX) 25 MG TAB PO ×2 (08:14→17:24)
[2017-09-12] MEDS: LITHIUM CARBONATE 450 MG **CR** TAB PO ×2 (08:14→20:58)
[2017-09-12] MEDS: cloZAPine 100 MG TAB (S0136) PO (20:58)
[2017-09-12] MEDS: traZODone 50 MG TAB PO (21:15)
[2017-09-12] MEDS: diphenhydrAMINE 50 MG CAP PO (21:15)
[2017-09-13] MEDS: LEVOTHYROXINE 75MCG TABLET (0.075MG) PO (06:03)
[2017-09-13] MEDS: ACETAMINOPHEN TAB 650MG DOSE (2X325MG) PO ×2 (06:19→21:28)
[2017-09-13 08:12] LABS: CLOZAPINE 1 320 ng/mL (350-650); CLOZAPINE 2 237 ng/mL (Not Estab.); CLOZAPINE 3 557 ng/mL (.)
[2017-09-13] MEDS: MULTIVITAMINS/MINERALS THERAP 1 TAB PO (08:23)
[2017-09-13] MEDS: QUEtiapine FUMARATE 200 MG TAB PO ×2 (08:23→21:28)
[2017-09-13] MEDS: ALBUTEROL 90 MCG/ACT 8GM HFA INHALER INH ×2 (08:23→21:31)
[2017-09-13] MEDS: JUNEL FE PO (08:23)
[2017-09-13] MEDS: TOPIRAMATE (TopAMAX) 25 MG TAB PO ×2 (08:24→17:26)
[2017-09-13] MEDS: metFORMIN XR 500MG TAB *GLUCOPHAGE XR PO ×2 (08:24→17:26)
[2017-09-13] MEDS: AMANTADINE 100 MG CAP PO ×2 (08:24→17:26)
[2017-09-13] MEDS: SERTRALINE 100 MG TAB PO (08:24)
[2017-09-13] MEDS: LITHIUM CARBONATE 450 MG **CR** TAB PO ×2 (08:24→21:30)
[2017-09-13] MEDS: cloNIDine 0.1 MG TAB PO ×3 (08:25→21:30)
[2017-09-13] MEDS: diphenhydrAMINE 50 MG CAP PO (21:28)
[2017-09-13] MEDS: traZODone 50 MG TAB PO (21:28)
[2017-09-13] MEDS: cloZAPine 100 MG TAB (S0136) PO (21:28)
[2017-09-14] MEDS: LEVOTHYROXINE 75MCG TABLET (0.075MG) PO (06:03)
[2017-09-14] MEDS: ACETAMINOPHEN TAB 650MG DOSE (2X325MG) PO (07:05)
[2017-09-14] MEDS: TOPIRAMATE (TopAMAX) 25 MG TAB PO ×2 (08:09→17:08)
[2017-09-14] MEDS: MULTIVITAMINS/MINERALS THERAP 1 TAB PO (08:09)
[2017-09-14] MEDS: SERTRALINE 100 MG TAB PO (08:09)
[2017-09-14] MEDS: metFORMIN XR 500MG TAB *GLUCOPHAGE XR PO ×2 (08:09→16:17)
[2017-09-14] MEDS: AMANTADINE 100 MG CAP PO ×2 (08:09→17:08)
[2017-09-14] MEDS: JUNEL FE PO (08:09)
[2017-09-14] MEDS: QUEtiapine FUMARATE 200 MG TAB PO ×2 (08:09→21:25)
[2017-09-14] MEDS: LITHIUM CARBONATE 450 MG **CR** TAB PO ×2 (08:09→21:24)
[2017-09-14] MEDS: ALBUTEROL 90 MCG/ACT 8GM HFA INHALER INH ×2 (08:09→21:56)
[2017-09-14] MEDS: cloNIDine 0.1 MG TAB PO ×3 (08:11→21:25)
[2017-09-14] MEDS: LORazepam 1 MG TAB PO (12:19)
[2017-09-14] MEDS: diphenhydrAMINE 50 MG CAP PO (12:19)
[2017-09-14] MEDS: OLANZapine ORAL DISINTEGRATING TAB 5MG PO (14:13)
[2017-09-14] MEDS: cloZAPine 100 MG TAB (S0136) PO (21:25)
[2017-09-14] MEDS: diphenhydrAMINE 25 MG CAP PO (21:54)
[2017-09-14] MEDS: traZODone 50 MG TAB PO (21:54)
[2017-09-15] MEDS: LEVOTHYROXINE 75MCG TABLET (0.075MG) PO (06:20)
[2017-09-15] MEDS: JUNEL FE PO (08:07)
[2017-09-15] MEDS: AMANTADINE 100 MG CAP PO ×2 (08:07→17:49)
[2017-09-15] MEDS: QUEtiapine FUMARATE 200 MG TAB PO ×2 (08:09→21:09)
[2017-09-15] MEDS: metFORMIN XR 500MG TAB *GLUCOPHAGE XR PO ×2 (08:09→17:49)
[2017-09-15] MEDS: cloNIDine 0.1 MG TAB PO ×3 (08:09→21:11)
[2017-09-15] MEDS: SERTRALINE 100 MG TAB PO (08:09)
[2017-09-15] MEDS: diphenhydrAMINE 50 MG CAP PO (08:09)
[2017-09-15] MEDS: MULTIVITAMINS/MINERALS THERAP 1 TAB PO (08:09)
[2017-09-15] MEDS: TOPIRAMATE (TopAMAX) 25 MG TAB PO ×2 (08:09→17:49)
[2017-09-15] MEDS: LITHIUM CARBONATE 450 MG **CR** TAB PO ×2 (08:09→21:09)
[2017-09-15] MEDS: cloZAPine 100 MG TAB (S0136) PO (21:09)
[2017-09-15] MEDS: traZODone 50 MG TAB PO (22:03)
[2017-09-15] MEDS: diphenhydrAMINE 25 MG CAP PO (22:03)
[2017-09-15] MEDS: ALBUTEROL 90 MCG/ACT 8GM HFA INHALER INH (22:05)
[2017-09-16] MEDS: LEVOTHYROXINE 75MCG TABLET (0.075MG) PO (06:21)
[2017-09-16] MEDS: metFORMIN XR 500MG TAB *GLUCOPHAGE XR PO ×2 (08:18→17:09)
[2017-09-16] MEDS: JUNEL FE PO (08:18)
[2017-09-16] MEDS: TOPIRAMATE (TopAMAX) 25 MG TAB PO ×2 (08:18→17:09)
[2017-09-16] MEDS: QUEtiapine FUMARATE 200 MG TAB PO ×2 (08:18→20:30)
[2017-09-16] MEDS: ALBUTEROL 90 MCG/ACT 8GM HFA INHALER INH ×2 (08:18→21:35)
[2017-09-16] MEDS: MULTIVITAMINS/MINERALS THERAP 1 TAB PO (08:18)
[2017-09-16] MEDS: SERTRALINE 100 MG TAB PO (08:18)
[2017-09-16] MEDS: LITHIUM CARBONATE 450 MG **CR** TAB PO ×2 (08:19→20:28)
[2017-09-16] MEDS: AMANTADINE 100 MG CAP PO ×2 (08:19→17:09)
[2017-09-16] MEDS: cloNIDine 0.1 MG TAB PO ×3 (08:19→20:29)
[2017-09-16] MEDS: HALOPERIDOL 5 MG/ML VIAL (J1630) IM (17:33)
[2017-09-16] MEDS: diphenhydrAMINE INJ 50MG/ML VIAL (J1200) IM (17:33)
[2017-09-16] MEDS: LORazepam 2 MG/ML VIAL (J2060) IM (17:33)
[2017-09-16] MEDS ORDERED: HALOPERIDOL 5 MG/ML VIAL (J1630) IM (17:58)
[2017-09-16] MEDS ORDERED: LORazepam 2 MG/ML VIAL (J2060) IM (17:58)
[2017-09-16] MEDS ORDERED: diphenhydrAMINE INJ 50MG/ML VIAL (J1200) IM (17:58)
[2017-09-16] MEDS: cloZAPine 100 MG TAB (S0136) PO (20:28)
[2017-09-16] MEDS: diphenhydrAMINE 50 MG CAP PO (20:28)
[2017-09-16] MEDS: traZODone 50 MG TAB PO (21:35)
[2017-09-17] MEDS: LEVOTHYROXINE 75MCG TABLET (0.075MG) PO (06:02)
[2017-09-17] MEDS: ALBUTEROL 90 MCG/ACT 8GM HFA INHALER INH (08:18)
[2017-09-17] MEDS: MULTIVITAMINS/MINERALS THERAP 1 TAB PO (08:19)
[2017-09-17] MEDS: QUEtiapine FUMARATE 200 MG TAB PO ×2 (08:19→21:40)
[2017-09-17] MEDS: AMANTADINE 100 MG CAP PO ×2 (08:19→17:04)
[2017-09-17] MEDS: metFORMIN XR 500MG TAB *GLUCOPHAGE XR PO ×2 (08:19→17:04)
[2017-09-17] MEDS: JUNEL FE PO (08:20)
[2017-09-17] MEDS: cloNIDine 0.1 MG TAB PO ×3 (08:20→20:09)
[2017-09-17] MEDS: LITHIUM CARBONATE 450 MG **CR** TAB PO ×2 (08:20→20:08)
[2017-09-17] MEDS: SERTRALINE 100 MG TAB PO (08:20)
[2017-09-17] MEDS: TOPIRAMATE (TopAMAX) 25 MG TAB PO ×2 (08:20→17:04)
[2017-09-17] MEDS: cloZAPine 100 MG TAB (S0136) PO (20:08)
[2017-09-17] MEDS: LORazepam 2 MG TAB PO (20:20)
[2017-09-17] MEDS: traZODone 50 MG TAB PO (21:40)
[2017-09-17] MEDS: diphenhydrAMINE 50 MG CAP PO (21:40)
[2017-09-18] MEDS: LEVOTHYROXINE 75MCG TABLET (0.075MG) PO (06:06)
[2017-09-18] MEDS: QUEtiapine FUMARATE 200 MG TAB PO ×2 (08:13→21:28)
[2017-09-18] MEDS: MULTIVITAMINS/MINERALS THERAP 1 TAB PO (08:13)
[2017-09-18] MEDS: ALBUTEROL 90 MCG/ACT 8GM HFA INHALER INH ×2 (08:13→21:30)
[2017-09-18] MEDS: TOPIRAMATE (TopAMAX) 25 MG TAB PO ×2 (08:13→17:08)
[2017-09-18] MEDS: AMANTADINE 100 MG CAP PO ×2 (08:13→17:08)
[2017-09-18] MEDS: metFORMIN XR 500MG TAB *GLUCOPHAGE XR PO ×2 (08:13→17:08)
[2017-09-18] MEDS: SERTRALINE 100 MG TAB PO (08:13)
[2017-09-18] MEDS: LITHIUM CARBONATE 450 MG **CR** TAB PO ×2 (08:13→21:28)
[2017-09-18] MEDS: JUNEL FE PO (08:13)
[2017-09-18] MEDS: cloNIDine 0.1 MG TAB PO ×3 (08:14→21:29)
[2017-09-18] MEDS: cloZAPine 100 MG TAB (S0136) PO (21:28)
[2017-09-18] MEDS: traZODone 50 MG TAB PO (21:28)
[2017-09-18] MEDS: diphenhydrAMINE 50 MG CAP PO (21:28)
[2017-09-19] MEDS: LEVOTHYROXINE 75MCG TABLET (0.075MG) PO (06:15)
[2017-09-19] MEDS: SERTRALINE 100 MG TAB PO (08:21)
[2017-09-19] MEDS: JUNEL FE PO (08:21)
[2017-09-19] MEDS: ALBUTEROL 90 MCG/ACT 8GM HFA INHALER INH ×2 (08:21→20:14)
[2017-09-19] MEDS: cloNIDine 0.1 MG TAB PO ×3 (08:22→20:16)
[2017-09-19] MEDS: AMANTADINE 100 MG CAP PO ×2 (08:22→17:39)
[2017-09-19] MEDS: metFORMIN XR 500MG TAB *GLUCOPHAGE XR PO ×2 (08:23→17:39)
[2017-09-19] MEDS: LITHIUM CARBONATE 450 MG **CR** TAB PO ×2 (08:23→20:14)
[2017-09-19] MEDS: TOPIRAMATE (TopAMAX) 25 MG TAB PO ×2 (08:24→17:39)
[2017-09-19] MEDS: QUEtiapine FUMARATE 200 MG TAB PO ×2 (08:24→21:26)
[2017-09-19] MEDS: MULTIVITAMINS/MINERALS THERAP 1 TAB PO (08:24)
[2017-09-19] MEDS ORDERED: ESCITALOPRAM OXALATE 10 MG TAB (LEXAPRO) PO (15:00)
[2017-09-19 15:41] LABS: BASO # 0.1 10^3/uL (0.0-0.2); BASO % 0.6 % (0.0-1.0); EOS % 0.1 % (0.0-3.0); HEMATOCRIT 38.3 % (36.0-47.0); HEMOGLOBIN 12.9 g/dl (12.0-15.5); IMMATURE GRANULOCYTE % 0.3 % (0-3.0); LYMPH # 4.1 10^3/uL (1.5-6.5); LYMPH % 46.7 % (24.0-44.0); MEAN CORPUSCULAR HEMOGLOBIN 31.2 pg (27.0-33.0); MEAN CORPUSCULAR HGB CONC 33.7 g/dl (32.0-36.5); MEAN CORPUSCULAR VOLUME 92.7 fl (80.0-96.0); MONO # 0.6 10^3/uL (0.0-0.8); MONO % 6.9 % (0.0-5.0); NEUTROPHILS % 45.4 % (36.0-66.0); PLATELET COUNT, AUTOMATED 273 10^3/uL (150-450); RED BLOOD COUNT 4.13 10^6/uL (4.00-5.40); RED CELL DISTRIBUTION WIDTH 12.4 % (11.5-14.5); WHITE BLOOD COUNT 8.7 10^3/uL (4.0-10.0)
[2017-09-19 18:19] LABS: LITHIUM LEVEL 0.65 MEQ/L (0.60-1.20)
[2017-09-19] MEDS: cloZAPine 100 MG TAB (S0136) PO (20:16)
[2017-09-19] MEDS: diphenhydrAMINE 50 MG CAP PO (21:25)
[2017-09-19] MEDS: traZODone 50 MG TAB PO (21:25)
[2017-09-20] MEDS: LEVOTHYROXINE 75MCG TABLET (0.075MG) PO (06:07)
[2017-09-20] MEDS: JUNEL FE PO (08:04)
[2017-09-20] MEDS: SERTRALINE 100 MG TAB PO (08:04)
[2017-09-20] MEDS: MULTIVITAMINS/MINERALS THERAP 1 TAB PO (08:04)
[2017-09-20] MEDS: TOPIRAMATE (TopAMAX) 25 MG TAB PO ×2 (08:05→17:21)
[2017-09-20] MEDS: LITHIUM CARBONATE 450 MG **CR** TAB PO ×2 (08:05→21:25)
[2017-09-20] MEDS: metFORMIN XR 500MG TAB *GLUCOPHAGE XR PO ×2 (08:05→16:21)
[2017-09-20] MEDS: QUEtiapine FUMARATE 200 MG TAB PO ×2 (08:05→21:25)
[2017-09-20] MEDS: cloNIDine 0.1 MG TAB PO ×3 (08:05→21:26)
[2017-09-20] MEDS: ALBUTEROL 90 MCG/ACT 8GM HFA INHALER INH ×2 (08:06→21:24)
[2017-09-20] MEDS: AMANTADINE 100 MG CAP PO ×2 (08:06→17:21)
[2017-09-20] MEDS: cloZAPine 100 MG TAB (S0136) PO (21:26)
[2017-09-20] MEDS: traZODone 50 MG TAB PO (21:26)
[2017-09-20] MEDS: diphenhydrAMINE 50 MG CAP PO (21:28)
[2017-09-21] MEDS: LEVOTHYROXINE 75MCG TABLET (0.075MG) PO (06:14)
[2017-09-21] MEDS: AMANTADINE 100 MG CAP PO ×2 (08:09→17:12)
[2017-09-21] MEDS: metFORMIN XR 500MG TAB *GLUCOPHAGE XR PO ×2 (08:10→17:13)
[2017-09-21] MEDS: JUNEL FE PO (08:10)
[2017-09-21] MEDS: TOPIRAMATE (TopAMAX) 25 MG TAB PO ×2 (08:11→17:13)
[2017-09-21] MEDS: SERTRALINE 100 MG TAB PO (08:11)
[2017-09-21] MEDS: QUEtiapine FUMARATE 200 MG TAB PO ×2 (08:11→21:39)
[2017-09-21] MEDS: LITHIUM CARBONATE 450 MG **CR** TAB PO ×2 (08:11→20:20)
[2017-09-21] MEDS: MULTIVITAMINS/MINERALS THERAP 1 TAB PO (08:11)
[2017-09-21] MEDS: cloNIDine 0.1 MG TAB PO ×3 (08:12→20:21)
[2017-09-21] MEDS: cloZAPine 100 MG TAB (S0136) PO (20:20)
[2017-09-21] MEDS: ALBUTEROL 90 MCG/ACT 8GM HFA INHALER INH (20:22)
[2017-09-21] MEDS: traZODone 50 MG TAB PO (21:40)
[2017-09-21] MEDS: diphenhydrAMINE 50 MG CAP PO (21:40)
[2017-09-22] MEDS: LEVOTHYROXINE 75MCG TABLET (0.075MG) PO (06:02)
[2017-09-22 08:38] LABS: CLOZAPINE 1 244 ng/mL (350-650); CLOZAPINE 2 198 ng/mL (Not Estab.); CLOZAPINE 3 442 ng/mL (.)
[2017-09-22] MEDS: JUNEL FE PO (08:44)
[2017-09-22] MEDS: AMANTADINE 100 MG CAP PO ×2 (08:45→17:16)
[2017-09-22] MEDS: cloNIDine 0.1 MG TAB PO ×3 (08:45→21:28)
[2017-09-22] MEDS: TOPIRAMATE (TopAMAX) 25 MG TAB PO ×2 (08:46→17:16)
[2017-09-22] MEDS: metFORMIN XR 500MG TAB *GLUCOPHAGE XR PO ×2 (08:46→16:08)
[2017-09-22] MEDS: LITHIUM CARBONATE 450 MG **CR** TAB PO ×2 (08:46→21:29)
[2017-09-22] MEDS: QUEtiapine FUMARATE 200 MG TAB PO ×2 (08:46→21:29)
[2017-09-22] MEDS: MULTIVITAMINS/MINERALS THERAP 1 TAB PO (08:46)
[2017-09-22] MEDS: SERTRALINE HCL 50 MG TAB PO (08:47)
[2017-09-22] MEDS: traZODone 50 MG TAB PO (21:28)
[2017-09-22] MEDS: cloZAPine 100 MG TAB (S0136) PO (21:29)
[2017-09-22] MEDS: ALBUTEROL 90 MCG/ACT 8GM HFA INHALER INH (21:30)
[2017-09-23] MEDS: LEVOTHYROXINE 75MCG TABLET (0.075MG) PO (06:02)
[2017-09-23] MEDS: TOPIRAMATE (TopAMAX) 25 MG TAB PO ×2 (08:11→18:08)
[2017-09-23] MEDS: MULTIVITAMINS/MINERALS THERAP 1 TAB PO (08:11)
[2017-09-23] MEDS: SERTRALINE HCL 50 MG TAB PO (08:12)
[2017-09-23] MEDS: JUNEL FE PO (08:12)
[2017-09-23] MEDS: LITHIUM CARBONATE 450 MG **CR** TAB PO ×2 (08:12→21:42)
[2017-09-23] MEDS: QUEtiapine FUMARATE 200 MG TAB PO ×2 (08:12→21:42)
[2017-09-23] MEDS: AMANTADINE 100 MG CAP PO ×2 (08:13→18:08)
[2017-09-23] MEDS: cloNIDine 0.1 MG TAB PO ×3 (08:13→21:42)
[2017-09-23] MEDS: metFORMIN XR 500MG TAB *GLUCOPHAGE XR PO ×2 (08:14→18:09)
[2017-09-23] MEDS: traZODone 50 MG TAB PO (21:42)
[2017-09-23] MEDS: cloZAPine 100 MG TAB (S0136) PO (21:43)
[2017-09-24] MEDS: LEVOTHYROXINE 75MCG TABLET (0.075MG) PO (06:00)
[2017-09-24] MEDS: QUEtiapine FUMARATE 200 MG TAB PO ×2 (08:21→21:00)
[2017-09-24] MEDS: TOPIRAMATE (TopAMAX) 25 MG TAB PO ×2 (08:21→18:16)
[2017-09-24] MEDS: JUNEL FE PO (08:21)
[2017-09-24] MEDS: cloNIDine 0.1 MG TAB PO ×3 (08:21→21:00)
[2017-09-24] MEDS: MULTIVITAMINS/MINERALS THERAP 1 TAB PO (08:21)
[2017-09-24] MEDS: SERTRALINE HCL 50 MG TAB PO (08:22)
[2017-09-24] MEDS: AMANTADINE 100 MG CAP PO ×2 (08:22→18:16)
[2017-09-24] MEDS: LITHIUM CARBONATE 450 MG **CR** TAB PO ×3 (08:22→23:29)
[2017-09-24] MEDS: metFORMIN XR 500MG TAB *GLUCOPHAGE XR PO ×2 (08:22→18:16)
[2017-09-24] MEDS: cloZAPine 100 MG TAB (S0136) PO (21:00)
[2017-09-24] MEDS: OLANZapine INTRAMUSCULAR 10 MG VIAL (S0166) IM (21:05)
[2017-09-24] MEDS: LORazepam 2 MG/ML VIAL (J2060) IM ×2 (21:05→22:40)
[2017-09-24] MEDS: diphenhydrAMINE INJ 50MG/ML VIAL (J1200) IM (22:40)
[2017-09-24] MEDS: chlorproMAZINE INJ 50MG/2ML AMP (J3230) IM (22:40)
[2017-09-25] MEDS: LEVOTHYROXINE 75MCG TABLET (0.075MG) PO (06:27)
[2017-09-25] MEDS: JUNEL FE PO (09:50)
[2017-09-25] MEDS: MULTIVITAMINS/MINERALS THERAP 1 TAB PO (09:51)
[2017-09-25] MEDS: cloNIDine 0.1 MG TAB PO ×3 (09:51→21:00)
[2017-09-25] MEDS: AMANTADINE 100 MG CAP PO ×2 (09:51→17:55)
[2017-09-25] MEDS: LITHIUM CARBONATE 450 MG **CR** TAB PO ×2 (09:51→21:00)
[2017-09-25] MEDS: QUEtiapine FUMARATE 200 MG TAB PO ×2 (09:51→21:00)
[2017-09-25] MEDS: TOPIRAMATE (TopAMAX) 25 MG TAB PO ×2 (09:51→17:55)
[2017-09-25] MEDS: metFORMIN XR 500MG TAB *GLUCOPHAGE XR PO ×2 (09:52→17:58)
[2017-09-25] MEDS: SERTRALINE HCL 50 MG TAB PO (09:52)
[2017-09-25] MEDS: cloZAPine 100 MG TAB (S0136) PO (21:00)
[2017-09-25] MEDS: chlorproMAZINE INJ 50MG/2ML AMP (J3230) IM (22:20)
[2017-09-25] MEDS: LORazepam 2 MG/ML VIAL (J2060) IM (22:20)
[2017-09-25] MEDS: diphenhydrAMINE INJ 50MG/ML VIAL (J1200) IM (22:20)
[2017-09-26] MEDS: QUEtiapine FUMARATE 200 MG TAB PO ×3 (00:46→22:26)
[2017-09-26] MEDS: LITHIUM CARBONATE 450 MG **CR** TAB PO ×3 (00:46→22:26)
[2017-09-26] MEDS: cloNIDine 0.1 MG TAB PO ×4 (00:46→22:28)
[2017-09-26] MEDS: cloZAPine 100 MG TAB (S0136) PO ×2 (00:46→22:26)
[2017-09-26] MEDS: LEVOTHYROXINE 75MCG TABLET (0.075MG) PO (06:13)
[2017-09-26] MEDS: TOPIRAMATE (TopAMAX) 25 MG TAB PO ×2 (07:30→17:03)
[2017-09-26] MEDS: AMANTADINE 100 MG CAP PO ×2 (07:30→17:03)
[2017-09-26] MEDS: metFORMIN XR 500MG TAB *GLUCOPHAGE XR PO ×2 (07:31→17:03)
[2017-09-26] MEDS: JUNEL FE PO (09:30)
[2017-09-26] MEDS: SERTRALINE HCL 50 MG TAB PO (09:30)
[2017-09-26] MEDS: MULTIVITAMINS/MINERALS THERAP 1 TAB PO (09:30)
[2017-09-26] MEDS: traZODone 50 MG TAB PO (22:26)
[2017-09-26] MEDS: ALBUTEROL 90 MCG/ACT 8GM HFA INHALER INH (22:28)
[2017-09-27] MEDS: LEVOTHYROXINE 75MCG TABLET (0.075MG) PO (05:58)
[2017-09-27] MEDS: metFORMIN XR 500MG TAB *GLUCOPHAGE XR PO ×2 (07:31→17:09)
[2017-09-27] MEDS: TOPIRAMATE (TopAMAX) 25 MG TAB PO ×2 (07:31→17:10)
[2017-09-27] MEDS: AMANTADINE 100 MG CAP PO ×2 (07:31→17:10)
[2017-09-27] MEDS: JUNEL FE PO (08:25)
[2017-09-27] MEDS: QUEtiapine FUMARATE 200 MG TAB PO ×2 (08:25→20:02)
[2017-09-27] MEDS: SERTRALINE HCL 50 MG TAB PO (08:26)
[2017-09-27] MEDS: LITHIUM CARBONATE 450 MG **CR** TAB PO ×2 (08:26→20:00)
[2017-09-27] MEDS: cloNIDine 0.1 MG TAB PO ×3 (08:26→20:00)
[2017-09-27] MEDS: MULTIVITAMINS/MINERALS THERAP 1 TAB PO (08:26)
[2017-09-27] MEDS: ALBUTEROL 90 MCG/ACT 8GM HFA INHALER INH (20:00)
[2017-09-27] MEDS: cloZAPine 100 MG TAB (S0136) PO (20:01)
[2017-09-28] MEDS: LEVOTHYROXINE 75MCG TABLET (0.075MG) PO (06:00)
[2017-09-28] MEDS: AMANTADINE 100 MG CAP PO ×2 (07:41→17:03)
[2017-09-28] MEDS: metFORMIN XR 500MG TAB *GLUCOPHAGE XR PO ×2 (07:41→17:03)
[2017-09-28] MEDS: TOPIRAMATE (TopAMAX) 25 MG TAB PO ×2 (07:41→17:03)
[2017-09-28] MEDS: MULTIVITAMINS/MINERALS THERAP 1 TAB PO (08:34)
[2017-09-28] MEDS: cloNIDine 0.1 MG TAB PO ×3 (08:34→20:23)
[2017-09-28] MEDS: JUNEL FE PO (08:34)
[2017-09-28] MEDS: QUEtiapine FUMARATE 200 MG TAB PO ×2 (08:34→20:20)
[2017-09-28] MEDS: LITHIUM CARBONATE 450 MG **CR** TAB PO ×2 (08:34→20:20)
[2017-09-28] MEDS: SERTRALINE HCL 50 MG TAB PO (08:34)
[2017-09-28] MEDS: LORazepam 2 MG TAB PO (12:40)
[2017-09-28] MEDS: cloZAPine 100 MG TAB (S0136) PO (20:20)
[2017-09-29] MEDS: LEVOTHYROXINE 75MCG TABLET (0.075MG) PO (05:44)
[2017-09-29] MEDS: MULTIVITAMINS/MINERALS THERAP 1 TAB PO (07:40)
[2017-09-29] MEDS: LITHIUM CARBONATE 450 MG **CR** TAB PO (07:40)
[2017-09-29] MEDS: QUEtiapine FUMARATE 200 MG TAB PO (07:41)
[2017-09-29] MEDS: metFORMIN XR 500MG TAB *GLUCOPHAGE XR PO (07:41)
[2017-09-29] MEDS: TOPIRAMATE (TopAMAX) 25 MG TAB PO (07:41)
[2017-09-29] MEDS: AMANTADINE 100 MG CAP PO (07:41)
[2017-09-29] MEDS: SERTRALINE HCL 50 MG TAB PO (07:41)
[2017-09-29] MEDS: JUNEL FE PO (07:42)
[2017-09-29] MEDS: cloNIDine 0.1 MG TAB PO (07:42)
[2017-09-29] MEDS: ARIPiprazole MONOHYDRATE 400 MG INJ (ABILIFY)(J0401) IM (09:01)
== END 2017-09-29 09:12 | disposition home or self-care (01) | DRG 750 ==
LOC: M PSY 09-04 16:49 → M ED 18:33 → M ED INP 21:46 → M PSY 22:37
DX: F25.1 Schizoaffective disorder, depressive type (principal); F33.2 Major depressive disorder, recurrent severe without psychotic features; F60.3 Borderline personality disorder; J45.909 Unspecified asthma, uncomplicated; E03.9 Hypothyroidism, unspecified; E66.9 Obesity, unspecified; E73.9 Lactose intolerance, unspecified; R73.01 Impaired fasting glucose; Z79.84 Long term (current) use of oral hypoglycemic drugs; Z81.8 Family history of other mental and behavioral disorders; Z79.899 Other long term (current) drug therapy

== ENCOUNTER → 2017-10-20 | Outpatient (CLI) | payer OTHER ==
[~2017-10-20] MED LIST changes: -CLON-412 PO; -CLOZ100T PO; -CLOZ100T2 PO; -CLOZ25TA2 PO; -HALO10TA2 PO; -HALO5TA PO; -JUNE1.5T PO; -LACT3000 PO; -LAMI1TAB7 PO; -LAMO150T PO; -LITH150C PO; -LITH300T PO; -LITH45TASA PO; -LITH600C PO; -METF500T4 PO; +METHACHOLINE KIT (J7674) INH; -PROP40TA PO; -SERT-138 PO; -SYNT75TA PO; -TRAZ50TA11 PO; -TRAZO50TA PO; -VITMTA PO; -ZOLO25TA PO
== END ==
LOC: M CARPUL 09:21
DX: R06.00 Dyspnea, unspecified (principal)
CPT/HCPCS: J7674

== ENCOUNTER 2017-11-01 18:38 | Inpatient (IN) | payer MEDICAID, OTHER ==
[2017-11-01 19:10] LABS: HEMATOCRIT 42.9 % (36.0-47.0); HEMOGLOBIN 13.9 g/dl (12.0-15.5); MEAN CORPUSCULAR HEMOGLOBIN 30.9 pg (27.0-33.0); MEAN CORPUSCULAR HGB CONC 32.4 g/dl (32.0-36.5); MEAN CORPUSCULAR VOLUME 95.3 fl (80.0-96.0); PLATELET COUNT, AUTOMATED 313 10^3/uL (150-450); RED CELL DISTRIBUTION WIDTH 12.7 % (11.5-14.5); WHITE BLOOD COUNT 9.5 10^3/uL (4.0-10.0)
[2017-11-01 19:22] LABS: CONTROL LINE HCG INT CTR LINE PRESENT; HCG, SERUM QUALITATIVE NEGATIVE (NEGATIVE)
[2017-11-01 19:27] LABS: AMPHETAMINES LEVEL URINE NEGATIVE (NEGATIVE); BARBITURATES URINE NEGATIVE (NEGATIVE); BENZODIAZEPINES URINE POSITIVE (NEGATIVE); CANNABINOIDS URINE NEGATIVE (NEGATIVE); COCAINE METABOLITE URINE NEGATIVE (NEGATIVE); METHADONE URINE NEGATIVE (NEGATIVE); OPIATES URINE NEGATIVE (NEGATIVE); PHENCYCLIDINE URINE NEGATIVE (NEGATIVE)
[2017-11-01 19:38] LABS: ALBUMIN 3.7 GM/DL (3.2-5.2); ALBUMIN/GLOBULIN RATIO 0.93 (1.00-1.93); ALKALINE PHOSPHATASE 87 U/L (45-117); ALT/SGPT 18 U/L (12-78); ANION GAP 12 MEQ/L (8-16); AST/SGOT 13 U/L (7-37); BILIRUBIN,DIRECT < 0.1 MG/DL (0.0-0.2); BILIRUBIN,TOTAL 0.2 MG/DL (0.2-1.0); BLOOD UREA NITROGEN 16 MG/DL (7-18); CALCIUM LEVEL 9.4 MG/DL (8.5-10.1); CARBON DIOXIDE LEVEL 20 MEQ/L (21-32); CHLORIDE LEVEL 110 MEQ/L (98-107); CREATININE FOR GFR 0.87 MG/DL (0.55-1.30); ETHYL ALCOHOL (ETHANOL) 0.003 % (0.000-0.010); GLOMERULAR FILTRATION RATE > 60.0 (>60); GLUCOSE, FASTING 83 MG/DL (70-100); POTASSIUM SERUM 3.9 MEQ/L (3.5-5.1); SALICYLATE LEVEL < 1.7 MG/DL (5.0-30.0); SODIUM LEVEL 142 MEQ/L (136-145); THYROID STIMULATING HORMONE 0.628 uIU/ML (0.358-3.740); TOTAL PROTEIN 7.7 GM/DL (6.4-8.2)
[2017-11-01 19:45] LABS: ACETAMINOPHEN LEVEL < 2.0 UG/ML (10.0-30.0)
[2017-11-01 20:27] LABS: LITHIUM LEVEL 0.42 MEQ/L (0.60-1.20)
[2017-11-01] MEDS: TOPIRAMATE (TopAMAX) 25 MG TAB PO (21:37)
[2017-11-01] MEDS: metFORMIN (GLUCOPHAGE) 1000 MG TABLET PO (21:37)
[2017-11-01] MEDS: cloZAPine 100 MG TAB (S0136) PO (21:37)
[2017-11-01] MEDS: traZODone 50 MG TAB PO (21:37)
[2017-11-01] MEDS: LITHIUM CARBONATE 450 MG **CR** TAB PO (21:37)
[2017-11-01] MEDS: cloNIDine 0.1 MG TAB PO (21:37)
[2017-11-01] MEDS: AMANTADINE 100 MG CAP PO (21:37)
[2017-11-01] MEDS ORDERED: ACETAMINOPHEN TAB 650MG DOSE (2X325MG) PO (22:45)
[2017-11-01] MEDS ORDERED: MOM 30ML SUSPENSION UDC PO (22:45)
[2017-11-01] MEDS ORDERED: MAALOX 30 ML SUSP *UDC PO (22:45)
[2017-11-01] MEDS ORDERED: HALOPERIDOL 5 MG TAB PO (22:45)
[2017-11-02] MEDS: LEVOTHYROXINE 75MCG TABLET (0.075MG) PO (06:24)
[2017-11-02] MEDS: TOPIRAMATE (TopAMAX) 25 MG TAB PO ×2 (07:36→17:33)
[2017-11-02] MEDS: SERTRALINE HCL 50 MG TAB PO (08:56)
[2017-11-02] MEDS: QUEtiapine FUMARATE 200 MG TAB PO ×2 (08:56→21:00)
[2017-11-02] MEDS: MULTIVITAMINS/MINERALS THERAP 1 TAB PO (08:56)
[2017-11-02] MEDS: cloNIDine 0.1 MG TAB PO ×3 (08:57→21:00)
[2017-11-02] MEDS: LITHIUM CARBONATE 450 MG **CR** TAB PO ×2 (08:57→21:00)
[2017-11-02] MEDS: metFORMIN XR 500MG TAB *GLUCOPHAGE XR PO ×2 (08:58→21:00)
[2017-11-02] MEDS: JUNEL FE PO (09:00)
[2017-11-02] MEDS: diphenhydrAMINE INJ 50MG/ML VIAL (J1200) IM ×4 (09:20→18:28)
[2017-11-02] MEDS ORDERED: chlorproMAZINE INJ 50MG/2ML AMP (J3230) IM (09:20)
[2017-11-02] MEDS ORDERED: LORazepam 2 MG/ML VIAL (J2060) IM (09:20)
[2017-11-02] MEDS: LORazepam 2 MG/ML VIAL (J2060) IM ×3 (09:37→18:28)
[2017-11-02] MEDS: chlorproMAZINE INJ 50MG/2ML AMP (J3230) IM (09:37)
[2017-11-02] MEDS: AMANTADINE 100 MG CAP PO ×3 (10:22→19:18)
[2017-11-02 11:45] LABS: BASO % 0.5 % (0.0-1.0); EOS % 0.2 % (0.0-3.0); HEMATOCRIT 39.9 % (36.0-47.0); HEMOGLOBIN 12.9 g/dl (12.0-15.5); IMMATURE GRANULOCYTE % 0.4 % (0-3.0); LYMPH # 3.1 10^3/uL (1.5-6.5); LYMPH % 35.8 % (24.0-44.0); MEAN CORPUSCULAR HGB CONC 32.3 g/dl (32.0-36.5); MEAN CORPUSCULAR VOLUME 95.9 fl (80.0-96.0); MONO # 0.6 10^3/uL (0.0-0.8); MONO % 6.6 % (0.0-5.0); NEUTROPHILS # 4.8 10^3/uL (1.8-7.7); NEUTROPHILS % 56.5 % (36.0-66.0); RED BLOOD COUNT 4.16 10^6/uL (4.00-5.40); RED CELL DISTRIBUTION WIDTH 12.8 % (11.5-14.5); WHITE BLOOD COUNT 8.5 10^3/uL (4.0-10.0)
[2017-11-02] MEDS: ARNUITY ELLIPTA 200 MCG INH (11:45)
[2017-11-02 12:08] LABS: POS COUNT POS FLAG
[2017-11-02] MEDS: HALOPERIDOL 5 MG/ML VIAL (J1630) IM ×2 (18:11→18:27)
[2017-11-02] MEDS: cloZAPine 100 MG TAB (S0136) PO (21:00)
[2017-11-03] MEDS: TOPIRAMATE (TopAMAX) 25 MG TAB PO ×2 (06:41→17:49)
[2017-11-03] MEDS: AMANTADINE 100 MG CAP PO ×3 (08:30→17:47)
[2017-11-03] MEDS: LITHIUM CARBONATE 450 MG **CR** TAB PO ×2 (09:00→20:56)
[2017-11-03] MEDS: cloNIDine 0.1 MG TAB PO ×3 (09:00→20:55)
[2017-11-03] MEDS: JUNEL FE PO (11:13)
[2017-11-03] MEDS: ARNUITY ELLIPTA 200 MCG INH (11:14)
[2017-11-03] MEDS: QUEtiapine FUMARATE 200 MG TAB PO ×2 (11:14→20:56)
[2017-11-03] MEDS: metFORMIN XR 500MG TAB *GLUCOPHAGE XR PO ×2 (11:15→20:56)
[2017-11-03] MEDS: MULTIVITAMINS/MINERALS THERAP 1 TAB PO (11:16)
[2017-11-03] MEDS: SERTRALINE HCL 50 MG TAB PO (11:17)
[2017-11-03] MEDS: cloZAPine 100 MG TAB (S0136) PO (20:56)
[2017-11-03] MEDS: LORazepam 2 MG/ML VIAL (J2060) IM ×2 (21:21→22:24)
[2017-11-03] MEDS: chlorproMAZINE INJ 50MG/2ML AMP (J3230) IM (21:21)
[2017-11-03] MEDS: diphenhydrAMINE INJ 50MG/ML VIAL (J1200) IM (21:21)
[2017-11-04] MEDS: MULTIVITAMINS/MINERALS THERAP 1 TAB PO (09:47)
[2017-11-04] MEDS: ARNUITY ELLIPTA 200 MCG INH (09:47)
[2017-11-04] MEDS: cloNIDine 0.1 MG TAB PO ×3 (09:47→22:53)
[2017-11-04] MEDS: TOPIRAMATE (TopAMAX) 25 MG TAB PO ×2 (09:47→17:12)
[2017-11-04] MEDS: metFORMIN XR 500MG TAB *GLUCOPHAGE XR PO ×2 (09:48→22:53)
[2017-11-04] MEDS: LITHIUM CARBONATE 450 MG **CR** TAB PO ×2 (09:48→22:53)
[2017-11-04] MEDS: QUEtiapine FUMARATE 200 MG TAB PO ×2 (09:48→22:52)
[2017-11-04] MEDS: AMANTADINE 100 MG CAP PO ×3 (09:48→17:37)
[2017-11-04] MEDS: SERTRALINE HCL 50 MG TAB PO (09:48)
[2017-11-04] MEDS: JUNEL FE PO (09:49)
[2017-11-04] MEDS: HALOPERIDOL 5 MG/ML VIAL (J1630) IM (22:15)
[2017-11-04] MEDS: LORazepam 2 MG/ML VIAL (J2060) IM (22:15)
[2017-11-04] MEDS: diphenhydrAMINE INJ 50MG/ML VIAL (J1200) IM (22:15)
[2017-11-04] MEDS: cloZAPine 100 MG TAB (S0136) PO (22:53)
[2017-11-05] MEDS: MULTIVITAMINS/MINERALS THERAP 1 TAB PO (09:00)
[2017-11-05] MEDS: TOPIRAMATE (TopAMAX) 25 MG TAB PO ×2 (09:00→17:48)
[2017-11-05] MEDS: ARNUITY ELLIPTA 200 MCG INH (09:00)
[2017-11-05] MEDS: SERTRALINE HCL 50 MG TAB PO (09:01)
[2017-11-05] MEDS: AMANTADINE 100 MG CAP PO ×3 (09:01→17:48)
[2017-11-05] MEDS: cloNIDine 0.1 MG TAB PO ×3 (09:01→20:32)
[2017-11-05] MEDS: QUEtiapine FUMARATE 200 MG TAB PO ×2 (09:01→20:33)
[2017-11-05] MEDS: JUNEL FE PO (09:02)
[2017-11-05] MEDS: metFORMIN XR 500MG TAB *GLUCOPHAGE XR PO ×2 (09:02→20:33)
[2017-11-05] MEDS: LITHIUM CARBONATE 450 MG **CR** TAB PO ×2 (09:02→20:32)
[2017-11-05] MEDS: diphenhydrAMINE 50 MG CAP PO (20:32)
[2017-11-05] MEDS: HALOPERIDOL 10 MG TAB PO (20:32)
[2017-11-05] MEDS: cloZAPine 100 MG TAB (S0136) PO (20:34)
[2017-11-06] MEDS: metFORMIN XR 500MG TAB *GLUCOPHAGE XR PO ×2 (08:46→20:00)
[2017-11-06] MEDS: AMANTADINE 100 MG CAP PO ×3 (08:46→17:31)
[2017-11-06] MEDS: ARNUITY ELLIPTA 200 MCG INH (08:46)
[2017-11-06] MEDS: TOPIRAMATE (TopAMAX) 25 MG TAB PO ×2 (08:47→17:28)
[2017-11-06] MEDS: LITHIUM CARBONATE 450 MG **CR** TAB PO ×2 (08:47→20:01)
[2017-11-06] MEDS: cloNIDine 0.1 MG TAB PO ×3 (08:47→20:01)
[2017-11-06] MEDS: QUEtiapine FUMARATE 200 MG TAB PO ×2 (08:47→20:00)
[2017-11-06] MEDS: JUNEL FE PO (08:47)
[2017-11-06] MEDS: MULTIVITAMINS/MINERALS THERAP 1 TAB PO (08:47)
[2017-11-06] MEDS: SERTRALINE HCL 50 MG TAB PO (08:47)
[2017-11-06] MEDS: diphenhydrAMINE 50 MG CAP PO (19:59)
[2017-11-06] MEDS: HALOPERIDOL 10 MG TAB PO (19:59)
[2017-11-06] MEDS: LORazepam 2 MG TAB PO (19:59)
[2017-11-06] MEDS: traZODone 50 MG TAB PO (20:00)
[2017-11-06] MEDS: cloZAPine 100 MG TAB (S0136) PO (20:01)
[2017-11-07] MEDS: TOPIRAMATE (TopAMAX) 25 MG TAB PO ×2 (06:55→17:37)
[2017-11-07] MEDS: ARNUITY ELLIPTA 200 MCG INH (08:54)
[2017-11-07] MEDS: LITHIUM CARBONATE 450 MG **CR** TAB PO ×2 (08:54→20:50)
[2017-11-07] MEDS: JUNEL FE PO (08:54)
[2017-11-07] MEDS: AMANTADINE 100 MG CAP PO ×3 (08:54→17:37)
[2017-11-07] MEDS: MULTIVITAMINS/MINERALS THERAP 1 TAB PO (08:54)
[2017-11-07] MEDS: QUEtiapine FUMARATE 200 MG TAB PO ×2 (08:54→20:50)
[2017-11-07] MEDS: cloNIDine 0.1 MG TAB PO ×3 (08:55→20:50)
[2017-11-07] MEDS: SERTRALINE HCL 50 MG TAB PO (08:55)
[2017-11-07] MEDS: metFORMIN XR 500MG TAB *GLUCOPHAGE XR PO ×2 (08:55→20:50)
[2017-11-07] MEDS: cloZAPine 100 MG TAB (S0136) PO (20:50)
[2017-11-07] MEDS: LORazepam 2 MG TAB PO (20:50)
[2017-11-07] MEDS: diphenhydrAMINE 50 MG CAP PO (20:51)
[2017-11-07] MEDS: ALBUTEROL 90 MCG/ACT 8GM HFA INHALER INH (20:51)
[2017-11-07] MEDS: traZODone 50 MG TAB PO (21:12)
[2017-11-08] MEDS: TOPIRAMATE (TopAMAX) 25 MG TAB PO ×2 (06:50→17:47)
[2017-11-08] MEDS: AMANTADINE 100 MG CAP PO ×3 (07:51→17:47)
[2017-11-08] MEDS: JUNEL FE PO (08:21)
[2017-11-08] MEDS: cloNIDine 0.1 MG TAB PO ×3 (08:22→21:06)
[2017-11-08] MEDS: ARNUITY ELLIPTA 200 MCG INH (08:22)
[2017-11-08] MEDS: LITHIUM CARBONATE 450 MG **CR** TAB PO ×2 (08:22→21:03)
[2017-11-08] MEDS: metFORMIN XR 500MG TAB *GLUCOPHAGE XR PO ×2 (08:22→21:04)
[2017-11-08] MEDS: QUEtiapine FUMARATE 200 MG TAB PO ×2 (08:22→21:56)
[2017-11-08] MEDS: SERTRALINE HCL 50 MG TAB PO (08:22)
[2017-11-08] MEDS: MULTIVITAMINS/MINERALS THERAP 1 TAB PO (08:22)
[2017-11-08] MEDS: LORazepam 2 MG TAB PO (21:04)
[2017-11-08] MEDS: cloZAPine 100 MG TAB (S0136) PO (21:06)
[2017-11-08] MEDS: HALOPERIDOL 10 MG TAB PO (21:06)
[2017-11-08] MEDS: traZODone 50 MG TAB PO (21:56)
[2017-11-08] MEDS: diphenhydrAMINE 50 MG CAP PO (21:56)
[2017-11-09] MEDS: AMANTADINE 100 MG CAP PO (07:48)
[2017-11-09] MEDS: TOPIRAMATE (TopAMAX) 25 MG TAB PO (07:48)
[2017-11-09] MEDS: QUEtiapine FUMARATE 200 MG TAB PO (08:40)
[2017-11-09] MEDS: cloNIDine 0.1 MG TAB PO (08:40)
[2017-11-09] MEDS: JUNEL FE PO (08:40)
[2017-11-09] MEDS: LITHIUM CARBONATE 450 MG **CR** TAB PO (08:40)
[2017-11-09] MEDS: SERTRALINE HCL 50 MG TAB PO (08:40)
[2017-11-09] MEDS: metFORMIN XR 500MG TAB *GLUCOPHAGE XR PO (08:41)
[2017-11-09] MEDS: LORazepam 2 MG TAB PO (08:42)
[2017-11-09] MEDS: MULTIVITAMINS/MINERALS THERAP 1 TAB PO (08:42)
[2017-11-09] MEDS: ARNUITY ELLIPTA 200 MCG INH (08:42)
[2017-11-11 08:32] LABS: CLOZAPINE 1 282 ng/mL (350-650); CLOZAPINE 2 186 ng/mL (Not Estab.); CLOZAPINE 3 468 ng/mL (.)
== END 2017-11-09 11:50 | disposition home or self-care (01) | DRG 885 ==
LOC: M PSY 11-04 20:54 → M ED 18:38 → M ED INP 22:40
DX: F32.3 Major depressive disorder, single episode, severe with psychotic features (principal); Z68.41 Body mass index [BMI] 40.0-44.9, adult; F60.3 Borderline personality disorder; R41.83 Borderline intellectual functioning; E73.9 Lactose intolerance, unspecified; E03.9 Hypothyroidism, unspecified; E66.9 Obesity, unspecified; R73.01 Impaired fasting glucose; J45.909 Unspecified asthma, uncomplicated; Z79.84 Long term (current) use of oral hypoglycemic drugs; Z79.899 Other long term (current) drug therapy

== ENCOUNTER 2017-11-13 17:54 | Inpatient (IN) | payer MEDICAID ==
[2017-11-13 18:26] LABS: HEMATOCRIT 40.6 % (36.0-47.0); HEMOGLOBIN 13.1 g/dl (12.0-15.5); MEAN CORPUSCULAR HEMOGLOBIN 30.6 pg (27.0-33.0); MEAN CORPUSCULAR HGB CONC 32.3 g/dl (32.0-36.5); MEAN CORPUSCULAR VOLUME 94.9 fl (80.0-96.0); PLATELET COUNT, AUTOMATED 338 10^3/uL (150-450); RED BLOOD COUNT 4.28 10^6/uL (4.00-5.40); RED CELL DISTRIBUTION WIDTH 12.4 % (11.5-14.5); WHITE BLOOD COUNT 8.6 10^3/uL (4.0-10.0)
[2017-11-13 18:51] LABS: CONTROL LINE HCG INT CTR LINE PRESENT; HCG, SERUM QUALITATIVE NEGATIVE (NEGATIVE)
[2017-11-13 19:05] LABS: LITHIUM LEVEL 0.53 MEQ/L (0.60-1.20)
[2017-11-13 19:05] LABS: ALBUMIN 3.5 GM/DL (3.2-5.2); ALBUMIN/GLOBULIN RATIO 0.97 (1.00-1.93); ALKALINE PHOSPHATASE 92 U/L (45-117); ALT/SGPT 23 U/L (12-78); ANION GAP 8 MEQ/L (8-16); AST/SGOT 19 U/L (7-37); BILIRUBIN,DIRECT < 0.1 MG/DL (0.0-0.2); BILIRUBIN,TOTAL 0.2 MG/DL (0.2-1.0); BLOOD UREA NITROGEN 12 MG/DL (7-18); CALCIUM LEVEL 8.7 MG/DL (8.5-10.1); CARBON DIOXIDE LEVEL 23 MEQ/L (21-32); CHLORIDE LEVEL 113 MEQ/L (98-107); CREATININE FOR GFR 0.75 MG/DL (0.55-1.30); GLOMERULAR FILTRATION RATE > 60.0 (>60); GLUCOSE, FASTING 88 MG/DL (70-100); POTASSIUM SERUM 3.9 MEQ/L (3.5-5.1); SALICYLATE LEVEL < 1.7 MG/DL (5.0-30.0); SODIUM LEVEL 144 MEQ/L (136-145); TOTAL PROTEIN 7.1 GM/DL (6.4-8.2)
[2017-11-13 19:07] LABS: AMPHETAMINES LEVEL URINE NEGATIVE (NEGATIVE); BARBITURATES URINE NEGATIVE (NEGATIVE); BENZODIAZEPINES URINE NEGATIVE (NEGATIVE); CANNABINOIDS URINE NEGATIVE (NEGATIVE); COCAINE METABOLITE URINE NEGATIVE (NEGATIVE); METHADONE URINE NEGATIVE (NEGATIVE); OPIATES URINE NEGATIVE (NEGATIVE); PHENCYCLIDINE URINE NEGATIVE (NEGATIVE)
[2017-11-13 19:10] LABS: ACETAMINOPHEN LEVEL < 2.0 UG/ML (10.0-30.0); ETHYL ALCOHOL (ETHANOL) < 0.003 % (0.000-0.010)
[2017-11-13] MEDS ORDERED: ACETAMINOPHEN TAB 650MG DOSE (2X325MG) PO (20:15)
[2017-11-13] MEDS ORDERED: MAALOX 30 ML SUSP *UDC PO (20:15)
[2017-11-13] MEDS ORDERED: ALBUTEROL 90 MCG/ACT 8GM HFA INHALER INH (20:15)
[2017-11-13] MEDS ORDERED: MOM 30ML SUSPENSION UDC PO (20:15)
[2017-11-13] MEDS: cloZAPine 100 MG TAB (S0136) PO (22:03)
[2017-11-13] MEDS: cloNIDine 0.1 MG TAB PO (22:04)
[2017-11-13] MEDS: LITHIUM CARBONATE 450 MG **CR** TAB PO (22:04)
[2017-11-13] MEDS: QUEtiapine FUMARATE 200 MG TAB PO (22:04)
[2017-11-13] MEDS: traZODone 50 MG TAB PO (22:05)
[2017-11-14] MEDS: AMANTADINE 100 MG CAP PO ×3 (08:10→17:34)
[2017-11-14] MEDS: cloNIDine 0.1 MG TAB PO ×3 (08:11→21:29)
[2017-11-14] MEDS: SERTRALINE HCL 50 MG TAB PO (08:11)
[2017-11-14] MEDS: MULTIVITAMINS/MINERALS THERAP 1 TAB PO (08:11)
[2017-11-14] MEDS: QUEtiapine FUMARATE 200 MG TAB PO ×2 (08:11→21:27)
[2017-11-14] MEDS: metFORMIN (GLUCOPHAGE) 1000 MG TABLET PO ×2 (08:11→17:34)
[2017-11-14] MEDS: TOPIRAMATE (TopAMAX) 25 MG TAB PO ×2 (08:11→15:21)
[2017-11-14] MEDS: LITHIUM CARBONATE 450 MG **CR** TAB PO ×2 (08:12→21:27)
[2017-11-14] MEDS ORDERED: ARNUITY ELLIPTA (PATIENT'S OWN MED) INH (09:00)
[2017-11-14] MEDS ORDERED: [UNRECOGNIZED DRUG - OTHER] PO (09:00)
[2017-11-14] MEDS: cloZAPine 100 MG TAB (S0136) PO (21:27)
[2017-11-14] MEDS: traZODone 50 MG TAB PO (21:27)
[2017-11-15] MEDS: TOPIRAMATE (TopAMAX) 25 MG TAB PO ×2 (08:06→16:00)
[2017-11-15] MEDS: cloNIDine 0.1 MG TAB PO ×3 (08:06→21:31)
[2017-11-15] MEDS: metFORMIN (GLUCOPHAGE) 1000 MG TABLET PO ×2 (08:06→17:35)
[2017-11-15] MEDS: MULTIVITAMINS/MINERALS THERAP 1 TAB PO (08:06)
[2017-11-15] MEDS: AMANTADINE 100 MG CAP PO ×3 (08:06→17:35)
[2017-11-15] MEDS: LITHIUM CARBONATE 450 MG **CR** TAB PO ×2 (08:06→21:32)
[2017-11-15] MEDS: QUEtiapine FUMARATE 200 MG TAB PO ×2 (08:07→21:31)
[2017-11-15] MEDS: SERTRALINE HCL 50 MG TAB PO (08:07)
[2017-11-15] MEDS: cloZAPine 100 MG TAB (S0136) PO (21:31)
[2017-11-15] MEDS: traZODone 50 MG TAB PO (21:32)
[2017-11-16] MEDS: metFORMIN (GLUCOPHAGE) 1000 MG TABLET PO (08:20)
[2017-11-16] MEDS: QUEtiapine FUMARATE 200 MG TAB PO (08:20)
[2017-11-16] MEDS: SERTRALINE HCL 50 MG TAB PO (08:20)
[2017-11-16] MEDS: cloNIDine 0.1 MG TAB PO (08:20)
[2017-11-16] MEDS: AMANTADINE 100 MG CAP PO (08:20)
[2017-11-16] MEDS: TOPIRAMATE (TopAMAX) 25 MG TAB PO (08:20)
[2017-11-16] MEDS: LITHIUM CARBONATE 450 MG **CR** TAB PO (08:20)
[2017-11-16] MEDS: MULTIVITAMINS/MINERALS THERAP 1 TAB PO (08:21)
== END 2017-11-16 10:20 | disposition home or self-care (01) | DRG 751 ==
LOC: M PSY 11-14 17:29 → M ED 17:54 → M ED INP 20:01 → M PSY 21:40
DX: F32.3 Major depressive disorder, single episode, severe with psychotic features (principal); Z68.41 Body mass index [BMI] 40.0-44.9, adult; F60.3 Borderline personality disorder; R41.83 Borderline intellectual functioning; E66.9 Obesity, unspecified; E73.9 Lactose intolerance, unspecified; E03.9 Hypothyroidism, unspecified; J45.909 Unspecified asthma, uncomplicated; R73.01 Impaired fasting glucose; F43.9 Reaction to severe stress, unspecified; Z81.8 Family history of other mental and behavioral disorders; Z79.84 Long term (current) use of oral hypoglycemic drugs; Z79.899 Other long term (current) drug therapy

== ENCOUNTER 2017-11-19 22:44 | Inpatient (IN) | payer MEDICAID ==
[2017-11-19 23:36] LABS: HEMATOCRIT 40.4 % (36.0-47.0); MEAN CORPUSCULAR HEMOGLOBIN 30.9 pg (27.0-33.0); MEAN CORPUSCULAR HGB CONC 32.2 g/dl (32.0-36.5); PLATELET COUNT, AUTOMATED 326 10^3/uL (150-450); RED BLOOD COUNT 4.21 10^6/uL (4.00-5.40); RED CELL DISTRIBUTION WIDTH 12.5 % (11.5-14.5); WHITE BLOOD COUNT 9.5 10^3/uL (4.0-10.0)
[2017-11-19 23:52] LABS: CONTROL LINE HCG INT CTR LINE PRESENT; HCG, SERUM QUALITATIVE NEGATIVE (NEGATIVE)
[2017-11-20 00:05] LABS: AMPHETAMINES LEVEL URINE NEGATIVE (NEGATIVE); BARBITURATES URINE NEGATIVE (NEGATIVE); BENZODIAZEPINES URINE NEGATIVE (NEGATIVE); CANNABINOIDS URINE NEGATIVE (NEGATIVE); COCAINE METABOLITE URINE NEGATIVE (NEGATIVE); METHADONE URINE NEGATIVE (NEGATIVE); OPIATES URINE NEGATIVE (NEGATIVE); PHENCYCLIDINE URINE NEGATIVE (NEGATIVE)
[2017-11-20 00:08] LABS: ACETAMINOPHEN LEVEL < 2.0 UG/ML (10.0-30.0); ALBUMIN 3.4 GM/DL (3.2-5.2); ALBUMIN/GLOBULIN RATIO 0.97 (1.00-1.93); ALKALINE PHOSPHATASE 99 U/L (45-117); ALT/SGPT 19 U/L (12-78); ANION GAP 9 MEQ/L (8-16); AST/SGOT 16 U/L (7-37); BILIRUBIN,DIRECT < 0.1 MG/DL (0.0-0.2); BILIRUBIN,TOTAL 0.2 MG/DL (0.2-1.0); BLOOD UREA NITROGEN 15 MG/DL (7-18); CARBON DIOXIDE LEVEL 24 MEQ/L (21-32); CHLORIDE LEVEL 109 MEQ/L (98-107); CREATININE FOR GFR 0.91 MG/DL (0.55-1.30); GLOMERULAR FILTRATION RATE > 60.0 (>60); GLUCOSE, FASTING 85 MG/DL (70-100); POTASSIUM SERUM 4.1 MEQ/L (3.5-5.1); SALICYLATE LEVEL < 1.7 MG/DL (5.0-30.0); SODIUM LEVEL 142 MEQ/L (136-145); TOTAL PROTEIN 6.9 GM/DL (6.4-8.2)
[2017-11-20 00:24] LABS: LITHIUM LEVEL 0.55 MEQ/L (0.60-1.20)
[2017-11-20] MEDS ORDERED: MAALOX 30 ML SUSP *UDC PO (01:30)
[2017-11-20] MEDS ORDERED: MOM 30ML SUSPENSION UDC PO (01:30)
[2017-11-20] MEDS: cloZAPine 100 MG TAB (S0136) PO ×2 (02:11→20:38)
[2017-11-20] MEDS: TOPIRAMATE (TopAMAX) 25 MG TAB PO ×2 (06:00→15:58)
[2017-11-20] MEDS: QUEtiapine FUMARATE 200 MG TAB PO ×2 (08:24→21:05)
[2017-11-20] MEDS: MULTIVITAMINS/MINERALS THERAP 1 TAB PO (08:24)
[2017-11-20] MEDS: LITHIUM CARBONATE 450 MG **CR** TAB PO ×2 (08:24→20:38)
[2017-11-20] MEDS: SERTRALINE 100 MG TAB PO (08:24)
[2017-11-20] MEDS: cloNIDine 0.1 MG TAB PO ×3 (08:24→20:38)
[2017-11-20] MEDS: AMANTADINE 100 MG CAP PO ×3 (08:24→17:35)
[2017-11-20] MEDS: metFORMIN XR 500MG TAB *GLUCOPHAGE XR PO ×2 (08:24→20:37)
[2017-11-20] MEDS: OLANZapine ORAL DISINTEGRATING TAB 5MG PO (11:31)
[2017-11-20] MEDS: ACETAMINOPHEN TAB 650MG DOSE (2X325MG) PO (20:38)
[2017-11-20] MEDS: traZODone 50 MG TAB PO (21:05)
[2017-11-21] MEDS: TOPIRAMATE (TopAMAX) 25 MG TAB PO ×2 (06:38→16:35)
[2017-11-21] MEDS: AMANTADINE 100 MG CAP PO ×3 (07:40→17:59)
[2017-11-21] MEDS: cloNIDine 0.1 MG TAB PO ×3 (08:38→20:02)
[2017-11-21] MEDS: metFORMIN XR 500MG TAB *GLUCOPHAGE XR PO ×2 (08:38→20:01)
[2017-11-21] MEDS: LITHIUM CARBONATE 450 MG **CR** TAB PO ×2 (08:39→20:02)
[2017-11-21] MEDS: SERTRALINE 100 MG TAB PO (08:40)
[2017-11-21] MEDS: MULTIVITAMINS/MINERALS THERAP 1 TAB PO (08:40)
[2017-11-21] MEDS: QUEtiapine FUMARATE 200 MG TAB PO ×2 (08:40→21:42)
[2017-11-21] MEDS: OLANZapine 5 MG TAB PO (10:19)
[2017-11-21] MEDS: ACETAMINOPHEN TAB 650MG DOSE (2X325MG) PO ×2 (12:25→20:03)
[2017-11-21] MEDS: cloZAPine 100 MG TAB (S0136) PO (20:02)
[2017-11-21] MEDS: ALBUTEROL 90 MCG/ACT 8GM HFA INHALER INH (20:02)
[2017-11-21] MEDS: traZODone 50 MG TAB PO (21:42)
[2017-11-22] MEDS: TOPIRAMATE (TopAMAX) 25 MG TAB PO ×2 (06:38→16:59)
[2017-11-22] MEDS: QUEtiapine FUMARATE 200 MG TAB PO ×2 (08:23→23:38)
[2017-11-22] MEDS: MULTIVITAMINS/MINERALS THERAP 1 TAB PO (08:23)
[2017-11-22] MEDS: AMANTADINE 100 MG CAP PO ×3 (08:24→16:59)
[2017-11-22] MEDS: metFORMIN XR 500MG TAB *GLUCOPHAGE XR PO ×2 (08:24→21:07)
[2017-11-22] MEDS: SERTRALINE 100 MG TAB PO (08:24)
[2017-11-22] MEDS: LITHIUM CARBONATE 450 MG **CR** TAB PO ×2 (08:24→21:07)
[2017-11-22] MEDS: cloNIDine 0.1 MG TAB PO ×3 (08:27→21:06)
[2017-11-22 14:19] LABS: ETHYL ALCOHOL (ETHANOL) < 0.003 % (0.000-0.010)
[2017-11-22] MEDS: cloZAPine 100 MG TAB (S0136) PO (21:06)
[2017-11-22] MEDS: traZODone 50 MG TAB PO (23:47)
[2017-11-23] MEDS: TOPIRAMATE (TopAMAX) 25 MG TAB PO ×2 (06:27→15:21)
[2017-11-23] MEDS: metFORMIN XR 500MG TAB *GLUCOPHAGE XR PO ×2 (07:46→21:07)
[2017-11-23] MEDS: SERTRALINE 100 MG TAB PO (07:47)
[2017-11-23] MEDS: QUEtiapine FUMARATE 200 MG TAB PO ×2 (07:47→21:39)
[2017-11-23] MEDS: LITHIUM CARBONATE 450 MG **CR** TAB PO ×2 (07:47→21:08)
[2017-11-23] MEDS: MULTIVITAMINS/MINERALS THERAP 1 TAB PO (07:47)
[2017-11-23] MEDS: AMANTADINE 100 MG CAP PO ×3 (07:47→18:41)
[2017-11-23] MEDS: cloNIDine 0.1 MG TAB PO ×3 (07:48→21:07)
[2017-11-23] MEDS: cloZAPine 100 MG TAB (S0136) PO (21:08)
[2017-11-23] MEDS: traZODone 50 MG TAB PO (21:40)
[2017-11-23] MEDS: ALBUTEROL 90 MCG/ACT 8GM HFA INHALER INH (21:41)
[2017-11-24] MEDS: TOPIRAMATE (TopAMAX) 25 MG TAB PO ×2 (06:50→16:05)
[2017-11-24 07:48] LABS: FREE THYROXINE INDEX 2.2 % (1.3-4.8); T UPTAKE 35 % (30-39); THYROXINE (T4) 6.4 UG/DL (4.5-12.0)
[2017-11-24] MEDS: LITHIUM CARBONATE 450 MG **CR** TAB PO ×2 (08:33→21:19)
[2017-11-24] MEDS: SERTRALINE 100 MG TAB PO (08:33)
[2017-11-24] MEDS: AMANTADINE 100 MG CAP PO ×3 (08:33→17:34)
[2017-11-24] MEDS: ALBUTEROL 90 MCG/ACT 8GM HFA INHALER INH (08:33)
[2017-11-24] MEDS: QUEtiapine FUMARATE 200 MG TAB PO ×2 (08:34→22:32)
[2017-11-24] MEDS: cloNIDine 0.1 MG TAB PO ×3 (08:34→21:18)
[2017-11-24] MEDS: metFORMIN XR 500MG TAB *GLUCOPHAGE XR PO ×2 (08:34→21:18)
[2017-11-24] MEDS: MULTIVITAMINS/MINERALS THERAP 1 TAB PO (08:34)
[2017-11-24] MEDS: OLANZapine 5 MG TAB PO (14:17)
[2017-11-24] MEDS: cloZAPine 100 MG TAB (S0136) PO (21:18)
[2017-11-24] MEDS: traZODone 50 MG TAB PO (22:30)
[2017-11-25] MEDS: TOPIRAMATE (TopAMAX) 25 MG TAB PO ×2 (06:47→17:03)
[2017-11-25] MEDS: AMANTADINE 100 MG CAP PO ×3 (07:52→17:56)
[2017-11-25] MEDS: SERTRALINE 100 MG TAB PO (09:03)
[2017-11-25] MEDS: metFORMIN XR 500MG TAB *GLUCOPHAGE XR PO ×2 (09:03→21:17)
[2017-11-25] MEDS: QUEtiapine FUMARATE 200 MG TAB PO ×2 (09:04→22:46)
[2017-11-25] MEDS: LITHIUM CARBONATE 450 MG **CR** TAB PO ×2 (09:04→21:17)
[2017-11-25] MEDS: MULTIVITAMINS/MINERALS THERAP 1 TAB PO (09:04)
[2017-11-25] MEDS: cloNIDine 0.1 MG TAB PO ×3 (09:04→21:18)
[2017-11-25] MEDS: cloZAPine 100 MG TAB (S0136) PO (21:17)
[2017-11-25] MEDS: traZODone 50 MG TAB PO (22:46)
[2017-11-26] MEDS: TOPIRAMATE (TopAMAX) 25 MG TAB PO ×2 (06:23→16:32)
[2017-11-26] MEDS: SERTRALINE 100 MG TAB PO (08:41)
[2017-11-26] MEDS: metFORMIN XR 500MG TAB *GLUCOPHAGE XR PO ×2 (08:42→21:52)
[2017-11-26] MEDS: QUEtiapine FUMARATE 200 MG TAB PO ×2 (08:42→23:22)
[2017-11-26] MEDS: MULTIVITAMINS/MINERALS THERAP 1 TAB PO (08:42)
[2017-11-26] MEDS: AMANTADINE 100 MG CAP PO ×3 (08:42→18:07)
[2017-11-26] MEDS: cloNIDine 0.1 MG TAB PO ×3 (08:44→21:53)
[2017-11-26] MEDS: LITHIUM CARBONATE 450 MG **CR** TAB PO ×2 (08:45→21:52)
[2017-11-26] MEDS: ALBUTEROL 90 MCG/ACT 8GM HFA INHALER INH (08:51)
[2017-11-26] MEDS: cloZAPine 100 MG TAB (S0136) PO (21:52)
[2017-11-26] MEDS: traZODone 50 MG TAB PO (23:22)
[2017-11-27] MEDS: TOPIRAMATE (TopAMAX) 25 MG TAB PO ×2 (06:10→16:02)
[2017-11-27] MEDS: AMANTADINE 100 MG CAP PO ×3 (08:47→17:41)
[2017-11-27] MEDS: MULTIVITAMINS/MINERALS THERAP 1 TAB PO (08:48)
[2017-11-27] MEDS: metFORMIN XR 500MG TAB *GLUCOPHAGE XR PO ×2 (08:48→21:13)
[2017-11-27] MEDS: QUEtiapine FUMARATE 200 MG TAB PO ×2 (08:48→21:56)
[2017-11-27] MEDS: LITHIUM CARBONATE 450 MG **CR** TAB PO ×2 (08:48→21:13)
[2017-11-27] MEDS: SERTRALINE 100 MG TAB PO (08:49)
[2017-11-27] MEDS: cloNIDine 0.1 MG TAB PO ×3 (08:49→21:13)
[2017-11-27] MEDS: ARNUITY ELLIPTA (PATIENT'S OWN MED) INH (09:39)
[2017-11-27] MEDS: cloZAPine 100 MG TAB (S0136) PO (21:14)
[2017-11-27] MEDS: traZODone 50 MG TAB PO (21:56)
[2017-11-28] MEDS: TOPIRAMATE (TopAMAX) 25 MG TAB PO ×2 (06:16→16:04)
[2017-11-28] MEDS: AMANTADINE 100 MG CAP PO ×3 (08:36→17:42)
[2017-11-28] MEDS: MULTIVITAMINS/MINERALS THERAP 1 TAB PO (08:36)
[2017-11-28] MEDS: QUEtiapine FUMARATE 200 MG TAB PO ×2 (08:37→21:41)
[2017-11-28] MEDS: LITHIUM CARBONATE 450 MG **CR** TAB PO ×2 (08:37→21:41)
[2017-11-28] MEDS: SERTRALINE 100 MG TAB PO (08:37)
[2017-11-28] MEDS: cloNIDine 0.1 MG TAB PO ×3 (08:37→21:41)
[2017-11-28] MEDS: ARNUITY ELLIPTA (PATIENT'S OWN MED) INH (08:38)
[2017-11-28] MEDS: metFORMIN XR 500MG TAB *GLUCOPHAGE XR PO ×2 (08:38→21:40)
[2017-11-28] MEDS ORDERED: PILL CRUSHER/CUTTER 1 EACH XX (10:15)
[2017-11-28] MEDS: cloZAPine 100 MG TAB (S0136) PO (21:40)
[2017-11-28] MEDS: traZODone 50 MG TAB PO (21:41)
[2017-11-29] MEDS: TOPIRAMATE (TopAMAX) 25 MG TAB PO ×2 (06:38→16:45)
[2017-11-29] MEDS: ARNUITY ELLIPTA (PATIENT'S OWN MED) INH (08:16)
[2017-11-29] MEDS: LITHIUM CARBONATE 450 MG **CR** TAB PO ×2 (08:17→20:12)
[2017-11-29] MEDS: SERTRALINE 100 MG TAB PO (08:17)
[2017-11-29] MEDS: cloNIDine 0.1 MG TAB PO ×3 (08:17→20:12)
[2017-11-29] MEDS: QUEtiapine FUMARATE 200 MG TAB PO ×2 (08:17→21:00)
[2017-11-29] MEDS: metFORMIN XR 500MG TAB *GLUCOPHAGE XR PO ×2 (08:17→20:11)
[2017-11-29] MEDS: MULTIVITAMINS/MINERALS THERAP 1 TAB PO (08:17)
[2017-11-29] MEDS: AMANTADINE 100 MG CAP PO ×3 (08:17→17:49)
[2017-11-29] MEDS: cloZAPine 100 MG TAB (S0136) PO (20:12)
[2017-11-29] MEDS: traZODone 50 MG TAB PO (21:00)
[2017-11-30] MEDS: TOPIRAMATE (TopAMAX) 25 MG TAB PO ×2 (06:15→16:34)
[2017-11-30] MEDS: cloNIDine 0.1 MG TAB PO ×3 (08:32→21:08)
[2017-11-30] MEDS: QUEtiapine FUMARATE 200 MG TAB PO ×2 (08:32→21:08)
[2017-11-30] MEDS: SERTRALINE 100 MG TAB PO (08:32)
[2017-11-30] MEDS: ARNUITY ELLIPTA (PATIENT'S OWN MED) INH (08:32)
[2017-11-30] MEDS: metFORMIN XR 500MG TAB *GLUCOPHAGE XR PO ×2 (08:33→21:07)
[2017-11-30] MEDS: AMANTADINE 100 MG CAP PO ×3 (08:33→17:22)
[2017-11-30] MEDS: MULTIVITAMINS/MINERALS THERAP 1 TAB PO (08:33)
[2017-11-30] MEDS: LITHIUM CARBONATE 450 MG **CR** TAB PO ×2 (08:33→21:08)
[2017-11-30] MEDS: traZODone 50 MG TAB PO (21:08)
[2017-11-30] MEDS: cloZAPine 100 MG TAB (S0136) PO (21:08)
[2017-12-01] MEDS: TOPIRAMATE (TopAMAX) 25 MG TAB PO ×2 (06:37→15:21)
[2017-12-01] MEDS: ARNUITY ELLIPTA (PATIENT'S OWN MED) INH (08:06)
[2017-12-01] MEDS: cloNIDine 0.1 MG TAB PO ×2 (08:07→14:28)
[2017-12-01] MEDS: SERTRALINE 100 MG TAB PO (08:07)
[2017-12-01] MEDS: QUEtiapine FUMARATE 200 MG TAB PO (08:07)
[2017-12-01] MEDS: MULTIVITAMINS/MINERALS THERAP 1 TAB PO (08:07)
[2017-12-01] MEDS: LITHIUM CARBONATE 450 MG **CR** TAB PO (08:07)
[2017-12-01] MEDS: metFORMIN XR 500MG TAB *GLUCOPHAGE XR PO (08:07)
[2017-12-01] MEDS: AMANTADINE 100 MG CAP PO ×3 (08:08→15:21)
== END 2017-12-01 14:05 | disposition home or self-care (01) | DRG 751 ==
LOC: M PSY 11-22 16:48 → M ED INP 11-20 01:24 → M ED 22:44 → M PSY 11-20 02:10
PROVIDERS: Psychiatry & Neurology Psychiatry
DX: F32.3 Major depressive disorder, single episode, severe with psychotic features (principal); E03.9 Hypothyroidism, unspecified; F60.3 Borderline personality disorder; R41.83 Borderline intellectual functioning; Z79.899 Other long term (current) drug therapy; E73.8 Other lactose intolerance; F41.9 Anxiety disorder, unspecified; J45.909 Unspecified asthma, uncomplicated; G47.00 Insomnia, unspecified; E66.9 Obesity, unspecified

== ENCOUNTER 2017-12-04 15:43 | Emergency (ER) | payer OTHER, MEDICAID ==
[2017-12-04 16:12] LABS: HEMATOCRIT 40.6 % (36.0-47.0); HEMOGLOBIN 13.2 g/dl (12.0-15.5); MEAN CORPUSCULAR HEMOGLOBIN 30.8 pg (27.0-33.0); MEAN CORPUSCULAR HGB CONC 32.5 g/dl (32.0-36.5); MEAN CORPUSCULAR VOLUME 94.9 fl (80.0-96.0); PLATELET COUNT, AUTOMATED 275 10^3/uL (150-450); RED BLOOD COUNT 4.28 10^6/uL (4.00-5.40); RED CELL DISTRIBUTION WIDTH 12.6 % (11.5-14.5); WHITE BLOOD COUNT 9.3 10^3/uL (4.0-10.0)
[2017-12-04 16:27] LABS: CONTROL LINE HCG INT CTR LINE PRESENT; HCG, SERUM QUALITATIVE NEGATIVE (NEGATIVE)
[2017-12-04 16:42] LABS: ACETAMINOPHEN LEVEL < 2.0 UG/ML (10.0-30.0); ALBUMIN 4.3 GM/DL (3.2-5.2); ALKALINE PHOSPHATASE 89 U/L (45-117); ALT/SGPT 28 U/L (12-78); ANION GAP 11 MEQ/L (8-16); AST/SGOT 15 U/L (7-37); BILIRUBIN,DIRECT < 0.1 MG/DL (0.0-0.2); BILIRUBIN,TOTAL 0.4 MG/DL (0.2-1.0); BLOOD UREA NITROGEN 16 MG/DL (7-18); CALCIUM LEVEL 8.9 MG/DL (8.5-10.1); CARBON DIOXIDE LEVEL 19 MEQ/L (21-32); CHLORIDE LEVEL 112 MEQ/L (98-107); CREATININE FOR GFR 0.98 MG/DL (0.55-1.30); ETHYL ALCOHOL (ETHANOL) < 0.003 % (0.000-0.010); GLOMERULAR FILTRATION RATE > 60.0 (>60); GLUCOSE, FASTING 93 MG/DL (70-100); LITHIUM LEVEL 0.79 MEQ/L (0.60-1.20); POTASSIUM SERUM 3.8 MEQ/L (3.5-5.1); SALICYLATE LEVEL < 1.7 MG/DL (5.0-30.0); SODIUM LEVEL 142 MEQ/L (136-145); TOTAL PROTEIN 7.6 GM/DL (6.4-8.2)
[2017-12-04 17:37] LABS: AMPHETAMINES LEVEL URINE NEGATIVE (NEGATIVE); BARBITURATES URINE NEGATIVE (NEGATIVE); BENZODIAZEPINES URINE POSITIVE (NEGATIVE); CANNABINOIDS URINE NEGATIVE (NEGATIVE); COCAINE METABOLITE URINE NEGATIVE (NEGATIVE); METHADONE URINE NEGATIVE (NEGATIVE); OPIATES URINE NEGATIVE (NEGATIVE); PHENCYCLIDINE URINE NEGATIVE (NEGATIVE)
== END 2017-12-04 18:11 | disposition home or self-care (01) ==
LOC: M ED 15:43
DX: F20.9 Schizophrenia, unspecified (principal); F32.9 Major depressive disorder, single episode, unspecified; F41.9 Anxiety disorder, unspecified; J45.909 Unspecified asthma, uncomplicated; E03.9 Hypothyroidism, unspecified; E11.9 Type 2 diabetes mellitus without complications; Z79.899 Other long term (current) drug therapy; Z91.011 Allergy to milk products; Z79.51 Long term (current) use of inhaled steroids
CPT/HCPCS: 80320

== ENCOUNTER 2017-12-13 22:31 | Emergency (ER) | payer OTHER ==
[2017-12-13 23:50] LABS: HEMATOCRIT 37.9 % (36.0-47.0); HEMOGLOBIN 12.2 g/dl (12.0-15.5); MEAN CORPUSCULAR HEMOGLOBIN 30.6 pg (27.0-33.0); MEAN CORPUSCULAR HGB CONC 32.2 g/dl (32.0-36.5); PLATELET COUNT, AUTOMATED 281 10^3/uL (150-450); RED BLOOD COUNT 3.99 10^6/uL (4.00-5.40); RED CELL DISTRIBUTION WIDTH 12.7 % (11.5-14.5); WHITE BLOOD COUNT 8.3 10^3/uL (4.0-10.0)
[2017-12-14 00:01] LABS: CONTROL LINE HCG INT CTR LINE PRESENT; HCG, SERUM QUALITATIVE NEGATIVE (NEGATIVE)
[2017-12-14 00:11] LABS: ACETAMINOPHEN LEVEL < 2.0 UG/ML (10.0-30.0); ALBUMIN 3.4 GM/DL (3.2-5.2); ALKALINE PHOSPHATASE 96 U/L (45-117); ALT/SGPT 19 U/L (12-78); ANION GAP 7 MEQ/L (8-16); AST/SGOT 11 U/L (7-37); BILIRUBIN,DIRECT < 0.1 MG/DL (0.0-0.2); BILIRUBIN,TOTAL 0.2 MG/DL (0.2-1.0); BLOOD UREA NITROGEN 13 MG/DL (7-18); CALCIUM LEVEL 8.2 MG/DL (8.5-10.1); CARBON DIOXIDE LEVEL 24 MEQ/L (21-32); CHLORIDE LEVEL 111 MEQ/L (98-107); CREATININE FOR GFR 0.85 MG/DL (0.55-1.30); ETHYL ALCOHOL (ETHANOL) < 0.003 % (0.000-0.010); GLOMERULAR FILTRATION RATE > 60.0 (>60); GLUCOSE, FASTING 92 MG/DL (70-100); SALICYLATE LEVEL < 1.7 MG/DL (5.0-30.0); SODIUM LEVEL 142 MEQ/L (136-145); TOTAL PROTEIN 6.8 GM/DL (6.4-8.2)
[2017-12-14 00:54] LABS: AMPHETAMINES LEVEL URINE NEGATIVE (NEGATIVE); BARBITURATES URINE NEGATIVE (NEGATIVE); BENZODIAZEPINES URINE NEGATIVE (NEGATIVE); CANNABINOIDS URINE NEGATIVE (NEGATIVE); COCAINE METABOLITE URINE NEGATIVE (NEGATIVE); METHADONE URINE NEGATIVE (NEGATIVE); OPIATES URINE NEGATIVE (NEGATIVE); PHENCYCLIDINE URINE NEGATIVE (NEGATIVE)
[2017-12-14 01:44] LABS: LITHIUM LEVEL 0.72 MEQ/L (0.60-1.20)
[2017-12-14] MEDS ORDERED: LITHIUM CARBONATE 450 MG **CR** TAB PO (09:45)
[2017-12-14] MEDS: ALBUTEROL SULFATE 2.5 MG/0.5 ML INH NEB SOLN NEB (09:45)
[2017-12-14] MEDS ORDERED: AMANTADINE 100 MG CAP PO (09:45)
[2017-12-14] MEDS: QUEtiapine FUMARATE 200 MG TAB PO (10:42)
[2017-12-14] MEDS: metFORMIN (GLUCOPHAGE) 1000 MG TABLET PO (10:42)
[2017-12-14] MEDS: SERTRALINE HCL 50 MG TAB PO (10:43)
[2017-12-14] MEDS: cloNIDine 0.1 MG TAB PO (10:43)
== END 2017-12-14 11:03 | disposition home or self-care (01) ==
LOC: M ED 12-14 11:03
DX: F31.9 Bipolar disorder, unspecified (principal); F20.9 Schizophrenia, unspecified; F60.3 Borderline personality disorder; E66.9 Obesity, unspecified; Z79.899 Other long term (current) drug therapy; E73.9 Lactose intolerance, unspecified
CPT/HCPCS: 80320

== ENCOUNTER 2017-12-25 18:36 | Emergency (ER) | payer OTHER ==
[2017-12-25 20:27] LABS: HEMATOCRIT 42.7 % (36.0-47.0); HEMOGLOBIN 13.9 g/dl (12.0-15.5); MEAN CORPUSCULAR HEMOGLOBIN 30.3 pg (27.0-33.0); MEAN CORPUSCULAR HGB CONC 32.6 g/dl (32.0-36.5); PLATELET COUNT, AUTOMATED 292 10^3/uL (150-450); RED BLOOD COUNT 4.59 10^6/uL (4.00-5.40); RED CELL DISTRIBUTION WIDTH 12.2 % (11.5-14.5); WHITE BLOOD COUNT 7.7 10^3/uL (4.0-10.0)
[2017-12-25 20:49] LABS: AMPHETAMINES LEVEL URINE NEGATIVE (NEGATIVE); BARBITURATES URINE NEGATIVE (NEGATIVE); BENZODIAZEPINES URINE NEGATIVE (NEGATIVE); CANNABINOIDS URINE NEGATIVE (NEGATIVE); COCAINE METABOLITE URINE NEGATIVE (NEGATIVE); METHADONE URINE NEGATIVE (NEGATIVE); OPIATES URINE NEGATIVE (NEGATIVE); PHENCYCLIDINE URINE NEGATIVE (NEGATIVE)
[2017-12-25 21:00] LABS: ALBUMIN 4.1 GM/DL (3.2-5.2); ALBUMIN/GLOBULIN RATIO 1.24 (1.00-1.93); ALKALINE PHOSPHATASE 106 U/L (45-117); ALT/SGPT 21 U/L (12-78); ANION GAP 10 MEQ/L (8-16); AST/SGOT 13 U/L (7-37); BILIRUBIN,DIRECT < 0.1 MG/DL (0.0-0.2); BILIRUBIN,TOTAL 0.3 MG/DL (0.2-1.0); BLOOD UREA NITROGEN 11 MG/DL (7-18); CARBON DIOXIDE LEVEL 23 MEQ/L (21-32); CHLORIDE LEVEL 109 MEQ/L (98-107); CREATININE FOR GFR 0.84 MG/DL (0.55-1.30); GLOMERULAR FILTRATION RATE > 60.0 (>60); GLUCOSE, FASTING 82 MG/DL (70-100); SALICYLATE LEVEL < 1.7 MG/DL (5.0-30.0); SODIUM LEVEL 142 MEQ/L (136-145); TOTAL PROTEIN 7.4 GM/DL (6.4-8.2)
[2017-12-25] MEDS ORDERED: cloZAPine 100 MG TAB (S0136) PO (21:00)
[2017-12-25 21:01] LABS: ACETAMINOPHEN LEVEL < 2.0 UG/ML (10.0-30.0); ETHYL ALCOHOL (ETHANOL) < 0.003 % (0.000-0.010)
[2017-12-25 21:26] LABS: CONTROL LINE HCG INT CTR LINE PRESENT; HCG, SERUM QUALITATIVE NEGATIVE (NEGATIVE)
[2017-12-25 22:51] LABS: LITHIUM LEVEL 0.64 MEQ/L (0.60-1.20)
[2017-12-25] MEDS ORDERED: LITHIUM CARBONATE 150 MG CAP PO (23:30)
[2017-12-26] MEDS: QUEtiapine FUMARATE 200 MG TAB PO ×2 (00:04→09:58)
[2017-12-26] MEDS: cloNIDine 0.1 MG TAB PO ×2 (00:04→09:59)
[2017-12-26] MEDS: cloZAPine 100 MG TAB (S0136) PO (00:05)
[2017-12-26] MEDS: LITHIUM CARBONATE 450 MG **CR** TAB PO (00:05)
[2017-12-26] MEDS: metFORMIN (GLUCOPHAGE) 1000 MG TABLET PO (09:56)
[2017-12-26] MEDS: LITHIUM CARBONATE 150 MG CAP PO (09:57)
[2017-12-26] MEDS: AMANTADINE 100 MG CAP PO (09:57)
[2017-12-26] MEDS: TOPIRAMATE (TopAMAX) 25 MG TAB PO (09:58)
[2017-12-26] MEDS: SERTRALINE HCL 50 MG TAB PO (09:59)
== END 2017-12-26 12:40 | disposition home or self-care (01) ==
LOC: M ED 12-26 12:40
DX: F60.3 Borderline personality disorder (principal); F20.9 Schizophrenia, unspecified; Z79.899 Other long term (current) drug therapy; Z79.84 Long term (current) use of oral hypoglycemic drugs; Z91.5 Personal history of self-harm; E73.9 Lactose intolerance, unspecified
CPT/HCPCS: 93005

== ENCOUNTER → 2017-12-29 | Outpatient (REF) | payer OTHER | LOC: M SFHCWAGY 15:56 | DX: Z12.4 Encounter for screening for malignant neoplasm of cervix (principal) ==

== ENCOUNTER 2018-02-13 19:50 | Inpatient (IN) | payer MEDICAID, OTHER ==
[2018-02-13 20:46] LABS: HEMATOCRIT 39.2 % (36.0-47.0); HEMOGLOBIN 12.4 g/dl (12.0-15.5); MEAN CORPUSCULAR HEMOGLOBIN 30.7 pg (27.0-33.0); MEAN CORPUSCULAR HGB CONC 31.6 g/dl (32.0-36.5); PLATELET COUNT, AUTOMATED 282 10^3/uL (150-450); RED BLOOD COUNT 4.04 10^6/uL (4.00-5.40); RED CELL DISTRIBUTION WIDTH 13.1 % (11.5-14.5); WHITE BLOOD COUNT 10.5 10^3/uL (4.0-10.0)
[2018-02-13] MEDS ORDERED: NEOSPORIN OINT 0.9 GM PKT (FLOOR STOCK) As Ordered (20:48)
[2018-02-13 21:07] LABS: CONTROL LINE HCG INT CTR LINE PRESENT; HCG, SERUM QUALITATIVE NEGATIVE (NEGATIVE)
[2018-02-13 21:22] LABS: ACETAMINOPHEN LEVEL < 2.0 UG/ML (10.0-30.0); ALBUMIN 3.5 GM/DL (3.2-5.2); ALBUMIN/GLOBULIN RATIO 1.03 (1.00-1.93); ALKALINE PHOSPHATASE 68 U/L (45-117); ALT/SGPT 16 U/L (12-78); ANION GAP 8 MEQ/L (8-16); AST/SGOT 13 U/L (7-37); BILIRUBIN,DIRECT < 0.1 MG/DL (0.0-0.2); BILIRUBIN,TOTAL 0.2 MG/DL (0.2-1.0); BLOOD UREA NITROGEN 13 MG/DL (7-18); CALCIUM LEVEL 8.3 MG/DL (8.5-10.1); CARBON DIOXIDE LEVEL 23 MEQ/L (21-32); CHLORIDE LEVEL 111 MEQ/L (98-107); CREATININE FOR GFR 0.85 MG/DL (0.55-1.30); ETHYL ALCOHOL (ETHANOL) < 0.003 % (0.000-0.010); GLOMERULAR FILTRATION RATE > 60.0 (>60); GLUCOSE, FASTING 110 MG/DL (70-100); POTASSIUM SERUM 3.8 MEQ/L (3.5-5.1); SALICYLATE LEVEL < 1.7 MG/DL (5.0-30.0); SODIUM LEVEL 142 MEQ/L (136-145); TOTAL PROTEIN 6.9 GM/DL (6.4-8.2)
[2018-02-13 21:56] LABS: AMPHETAMINES LEVEL URINE NEGATIVE (NEGATIVE); BARBITURATES URINE NEGATIVE (NEGATIVE); BENZODIAZEPINES URINE NEGATIVE (NEGATIVE); CANNABINOIDS URINE NEGATIVE (NEGATIVE); COCAINE METABOLITE URINE NEGATIVE (NEGATIVE); METHADONE URINE NEGATIVE (NEGATIVE); OPIATES URINE NEGATIVE (NEGATIVE); PHENCYCLIDINE URINE NEGATIVE (NEGATIVE)
[2018-02-13] MEDS: cloNIDine 0.1 MG TAB PO (23:17)
[2018-02-13] MEDS: traZODone 50 MG TAB PO (23:17)
[2018-02-13] MEDS: BENZTROPINE 1 MG TAB PO (23:17)
[2018-02-13] MEDS: QUEtiapine FUMARATE 200 MG TAB PO (23:18)
[2018-02-13 23:38] LABS: LITHIUM LEVEL 0.52 MEQ/L (0.60-1.20)
[2018-02-13] MEDS: cloZAPine 100 MG TAB (S0136) PO (23:38)
[2018-02-13 23:44] LABS: BASO % 0.4 % (0.0-1.0); EOS % 0.2 % (0.0-3.0); IMMATURE GRANULOCYTE % 0.4 % (0-3.0); LYMPH # 2.9 10^3/uL (1.5-6.5); LYMPH % 28.1 % (24.0-44.0); MONO # 0.5 10^3/uL (0.0-0.8); MONO % 4.7 % (0.0-5.0); NEUTROPHILS # 6.9 10^3/uL (1.8-7.7); NEUTROPHILS % 66.2 % (36.0-66.0)
[2018-02-14] MEDS ORDERED: LITHIUM CARBONATE 150 MG CAP PO (09:00)
[2018-02-14] MEDS: QUEtiapine FUMARATE 200 MG TAB PO ×2 (09:51→21:14)
[2018-02-14] MEDS: LITHIUM CARBONATE 450 MG **CR** TAB PO ×2 (09:51→21:15)
[2018-02-14] MEDS: metFORMIN (GLUCOPHAGE) 1000 MG TABLET PO (09:51)
[2018-02-14] MEDS: cloNIDine 0.1 MG TAB PO ×2 (09:52→21:15)
[2018-02-14] MEDS: TOPIRAMATE (TopAMAX) 25 MG TAB PO ×2 (09:52→16:54)
[2018-02-14] MEDS: AMANTADINE 100 MG CAP PO ×2 (09:53→18:19)
[2018-02-14] MEDS: SERTRALINE HCL 50 MG TAB PO (09:53)
[2018-02-14] MEDS ORDERED: ACETAMINOPHEN TAB 650MG DOSE (2X325MG) PO (13:45)
[2018-02-14] MEDS ORDERED: MAALOX 30 ML SUSP *UDC PO (13:45)
[2018-02-14] MEDS ORDERED: MOM 30ML SUSPENSION UDC PO (13:45)
[2018-02-14 16:25] LABS: BASO # 0.1 10^3/uL (0.0-0.2); BASO % 0.5 % (0.0-1.0); EOS % 0.3 % (0.0-3.0); HEMATOCRIT 41.8 % (36.0-47.0); HEMOGLOBIN 13.2 g/dl (12.0-15.5); IMMATURE GRANULOCYTE % 0.5 % (0-3.0); LYMPH # 2.9 10^3/uL (1.5-6.5); LYMPH % 29.8 % (24.0-44.0); MEAN CORPUSCULAR HEMOGLOBIN 30.6 pg (27.0-33.0); MEAN CORPUSCULAR HGB CONC 31.6 g/dl (32.0-36.5); MEAN CORPUSCULAR VOLUME 96.8 fl (80.0-96.0); MONO # 0.6 10^3/uL (0.0-0.8); MONO % 6.3 % (0.0-5.0); NEUTROPHILS # 6.1 10^3/uL (1.8-7.7); NEUTROPHILS % 62.6 % (36.0-66.0); PLATELET COUNT, AUTOMATED 299 10^3/uL (150-450); RED BLOOD COUNT 4.32 10^6/uL (4.00-5.40); RED CELL DISTRIBUTION WIDTH 13.2 % (11.5-14.5); WHITE BLOOD COUNT 9.8 10^3/uL (4.0-10.0)
[2018-02-14] MEDS: risperiDONE 1 MG TAB PO ×2 (16:53→21:15)
[2018-02-14] MEDS: metFORMIN XR 500MG TAB *GLUCOPHAGE XR PO (18:19)
[2018-02-14] MEDS: ADVAIR HFA 45/21MCG INHALER INH (20:00)
[2018-02-14] MEDS: BENZTROPINE 1 MG TAB PO (21:15)
[2018-02-14] MEDS: cloZAPine 100 MG TAB (S0136) PO (21:15)
[2018-02-14] MEDS: traZODone 50 MG TAB PO (21:16)
[2018-02-15] MEDS: TOPIRAMATE (TopAMAX) 25 MG TAB PO ×2 (06:18→16:03)
[2018-02-15 07:44] LABS: LITHIUM LEVEL 0.58 MEQ/L (0.60-1.20)
[2018-02-15] MEDS: SERTRALINE HCL 50 MG TAB PO (08:11)
[2018-02-15] MEDS: AMANTADINE 100 MG CAP PO ×3 (08:12→18:00)
[2018-02-15] MEDS: risperiDONE 1 MG TAB PO (08:12)
[2018-02-15] MEDS: cloNIDine 0.1 MG TAB PO ×4 (08:12→23:29)
[2018-02-15] MEDS: QUEtiapine FUMARATE 200 MG TAB PO ×3 (08:12→23:28)
[2018-02-15] MEDS: MULTIVITAMINS/MINERALS THERAP 1 TAB PO (08:12)
[2018-02-15] MEDS: ADVAIR HFA 45/21MCG INHALER INH ×3 (08:12→23:26)
[2018-02-15] MEDS: LITHIUM CARBONATE 450 MG **CR** TAB PO ×3 (08:12→23:28)
[2018-02-15] MEDS: metFORMIN XR 500MG TAB *GLUCOPHAGE XR PO ×2 (08:13→18:00)
[2018-02-15] MEDS ORDERED: JUNEL FE PO (09:00)
[2018-02-15] MEDS ORDERED: BLISOVI FE PO (09:00)
[2018-02-15] MEDS: HALOPERIDOL 5 MG TAB PO ×5 (10:06→23:30)
[2018-02-15] MEDS: LORazepam 2 MG/ML VIAL (J2060) IM (20:51)
[2018-02-15] MEDS: diphenhydrAMINE INJ 50MG/ML VIAL (J1200) IM (20:51)
[2018-02-15] MEDS: HALOPERIDOL 5 MG/ML VIAL (J1630) IM (20:51)
[2018-02-15] MEDS: BENZTROPINE 1 MG TAB PO ×2 (21:00→23:27)
[2018-02-15] MEDS: cloZAPine 100 MG TAB (S0136) PO ×2 (21:00→23:29)
[2018-02-15] MEDS: BLISOVI FE PO ×2 (21:00)
[2018-02-16] MEDS: TOPIRAMATE (TopAMAX) 25 MG TAB PO ×2 (06:10→16:03)
[2018-02-16] MEDS: QUEtiapine FUMARATE 200 MG TAB PO ×2 (08:42→21:21)
[2018-02-16] MEDS: cloNIDine 0.1 MG TAB PO ×3 (08:42→21:25)
[2018-02-16] MEDS: LITHIUM CARBONATE 450 MG **CR** TAB PO ×2 (08:42→21:24)
[2018-02-16] MEDS: AMANTADINE 100 MG CAP PO ×3 (08:42→18:19)
[2018-02-16] MEDS: MULTIVITAMINS/MINERALS THERAP 1 TAB PO (08:42)
[2018-02-16] MEDS: metFORMIN XR 500MG TAB *GLUCOPHAGE XR PO ×2 (08:42→18:19)
[2018-02-16] MEDS: SERTRALINE HCL 50 MG TAB PO (08:42)
[2018-02-16] MEDS: HALOPERIDOL 5 MG TAB PO ×4 (08:42→21:21)
[2018-02-16] MEDS: cloZAPine 100 MG TAB (S0136) PO (21:20)
[2018-02-16] MEDS: traZODone 50 MG TAB PO (21:21)
[2018-02-16] MEDS: ADVAIR HFA 45/21MCG INHALER INH (21:23)
[2018-02-16] MEDS: BENZTROPINE 1 MG TAB PO (21:26)
[2018-02-16] MEDS: BLISOVI FE PO (21:28)
[2018-02-17] MEDS: TOPIRAMATE (TopAMAX) 25 MG TAB PO ×2 (06:36→16:53)
[2018-02-17 08:06] LABS: CLOZAPINE 1 565 ng/mL (350-650); CLOZAPINE 2 369 ng/mL (Not Estab.); CLOZAPINE 3 934 ng/mL (.)
[2018-02-17] MEDS: metFORMIN XR 500MG TAB *GLUCOPHAGE XR PO ×2 (08:32→17:52)
[2018-02-17] MEDS: ADVAIR HFA 45/21MCG INHALER INH ×2 (08:32→21:59)
[2018-02-17] MEDS: AMANTADINE 100 MG CAP PO ×3 (08:32→17:52)
[2018-02-17] MEDS: HALOPERIDOL 5 MG TAB PO ×4 (08:32→21:57)
[2018-02-17] MEDS: SERTRALINE HCL 50 MG TAB PO (08:32)
[2018-02-17] MEDS: cloNIDine 0.1 MG TAB PO ×3 (08:33→21:59)
[2018-02-17] MEDS: QUEtiapine FUMARATE 200 MG TAB PO (08:33)
[2018-02-17] MEDS: MULTIVITAMINS/MINERALS THERAP 1 TAB PO (08:33)
[2018-02-17] MEDS: LITHIUM CARBONATE 450 MG **CR** TAB PO ×2 (08:33→21:58)
[2018-02-17] MEDS: BLISOVI FE PO (21:57)
[2018-02-17] MEDS: traZODone 50 MG TAB PO (21:57)
[2018-02-17] MEDS: BENZTROPINE 1 MG TAB PO (21:57)
[2018-02-17] MEDS: cloZAPine 100 MG TAB (S0136) PO (21:58)
[2018-02-17] MEDS: QUEtiapine FUMARATE 50 MG TAB PO (21:58)
[2018-02-18] MEDS: TOPIRAMATE (TopAMAX) 25 MG TAB PO ×2 (06:47→16:50)
[2018-02-18] MEDS: metFORMIN XR 500MG TAB *GLUCOPHAGE XR PO ×2 (07:37→17:46)
[2018-02-18] MEDS: AMANTADINE 100 MG CAP PO ×3 (07:37→17:46)
[2018-02-18] MEDS: ADVAIR HFA 45/21MCG INHALER INH ×2 (07:37→21:32)
[2018-02-18] MEDS: cloNIDine 0.1 MG TAB PO ×3 (10:05→21:33)
[2018-02-18] MEDS: LITHIUM CARBONATE 450 MG **CR** TAB PO ×2 (10:05→21:32)
[2018-02-18] MEDS: QUEtiapine FUMARATE 50 MG TAB PO ×2 (10:05→21:33)
[2018-02-18] MEDS: SERTRALINE HCL 50 MG TAB PO (10:05)
[2018-02-18] MEDS: HALOPERIDOL 5 MG TAB PO ×4 (10:05→21:33)
[2018-02-18] MEDS: MULTIVITAMINS/MINERALS THERAP 1 TAB PO (10:06)
[2018-02-18] MEDS ORDERED: LORazepam 2 MG TAB PO (15:45)
[2018-02-18] MEDS ORDERED: diphenhydrAMINE 50 MG CAP PO (15:45)
[2018-02-18] MEDS ORDERED: HALOPERIDOL 10 MG TAB PO (15:45)
[2018-02-18] MEDS: HALOPERIDOL 5 MG/ML VIAL (J1630) IM (15:57)
[2018-02-18] MEDS: LORazepam 2 MG/ML VIAL (J2060) IM (15:58)
[2018-02-18] MEDS: diphenhydrAMINE INJ 50MG/ML VIAL (J1200) IM (15:58)
[2018-02-18] MEDS: BLISOVI FE PO (21:32)
[2018-02-18] MEDS: BENZTROPINE 1 MG TAB PO (21:33)
[2018-02-18] MEDS: cloZAPine 100 MG TAB (S0136) PO (21:34)
[2018-02-19] MEDS: TOPIRAMATE (TopAMAX) 25 MG TAB PO ×2 (06:06→17:56)
[2018-02-19] MEDS: ADVAIR HFA 45/21MCG INHALER INH ×2 (08:00→20:00)
[2018-02-19] MEDS: MULTIVITAMINS/MINERALS THERAP 1 TAB PO (09:56)
[2018-02-19] MEDS: metFORMIN XR 500MG TAB *GLUCOPHAGE XR PO ×2 (09:57→17:56)
[2018-02-19] MEDS: QUEtiapine FUMARATE 50 MG TAB PO ×2 (09:57→21:06)
[2018-02-19] MEDS: SERTRALINE HCL 50 MG TAB PO (09:57)
[2018-02-19] MEDS: AMANTADINE 100 MG CAP PO ×3 (09:57→17:56)
[2018-02-19] MEDS: LITHIUM CARBONATE 450 MG **CR** TAB PO ×2 (09:58→21:06)
[2018-02-19] MEDS: HALOPERIDOL 5 MG TAB PO ×4 (09:58→21:00)
[2018-02-19] MEDS: cloNIDine 0.1 MG TAB PO ×3 (09:58→21:05)
[2018-02-19] MEDS: OLANZapine ORAL DISINTEGRATING TAB 5MG PO (15:18)
[2018-02-19] MEDS: cloZAPine 100 MG TAB (S0136) PO (21:05)
[2018-02-19] MEDS: BLISOVI FE PO (21:06)
[2018-02-19] MEDS: BENZTROPINE 1 MG TAB PO (21:06)
[2018-02-19] MEDS ORDERED: PILL CRUSHER/CUTTER 1 EACH XX (21:15)
[2018-02-20] MEDS: TOPIRAMATE (TopAMAX) 25 MG TAB PO ×2 (06:21→15:35)
[2018-02-20] MEDS: metFORMIN XR 500MG TAB *GLUCOPHAGE XR PO ×2 (09:53→17:47)
[2018-02-20] MEDS: cloNIDine 0.1 MG TAB PO ×3 (09:54→21:39)
[2018-02-20] MEDS: QUEtiapine FUMARATE 50 MG TAB PO ×2 (09:54→21:39)
[2018-02-20] MEDS: ADVAIR HFA 45/21MCG INHALER INH ×2 (09:54→21:51)
[2018-02-20] MEDS: SERTRALINE HCL 50 MG TAB PO (09:54)
[2018-02-20] MEDS: HALOPERIDOL 5 MG TAB PO ×4 (09:54→21:39)
[2018-02-20] MEDS: LITHIUM CARBONATE 450 MG **CR** TAB PO ×2 (09:54→21:40)
[2018-02-20] MEDS: AMANTADINE 100 MG CAP PO ×3 (09:54→17:47)
[2018-02-20] MEDS: MULTIVITAMINS/MINERALS THERAP 1 TAB PO (09:54)
[2018-02-20] MEDS ORDERED: OLANZapine ORAL DISINTEGRATING TAB 5MG PO (12:00)
[2018-02-20] MEDS: ALBUTEROL 90 MCG/ACT 8GM HFA INHALER INH (17:48)
[2018-02-20] MEDS: cloZAPine 100 MG TAB (S0136) PO (21:38)
[2018-02-20] MEDS: BENZTROPINE 1 MG TAB PO (21:39)
[2018-02-20] MEDS: BLISOVI FE PO (21:40)
[2018-02-21] MEDS: TOPIRAMATE (TopAMAX) 25 MG TAB PO (07:10)
[2018-02-21] MEDS: MULTIVITAMINS/MINERALS THERAP 1 TAB PO (08:40)
[2018-02-21] MEDS: SERTRALINE HCL 50 MG TAB PO (08:40)
[2018-02-21] MEDS: AMANTADINE 100 MG CAP PO ×2 (08:40→12:35)
[2018-02-21] MEDS: metFORMIN XR 500MG TAB *GLUCOPHAGE XR PO (08:40)
[2018-02-21] MEDS: QUEtiapine FUMARATE 50 MG TAB PO (08:40)
[2018-02-21] MEDS: HALOPERIDOL 5 MG TAB PO (08:41)
[2018-02-21] MEDS: ADVAIR HFA 45/21MCG INHALER INH (08:41)
[2018-02-21] MEDS: cloNIDine 0.1 MG TAB PO ×2 (08:41→12:35)
[2018-02-21] MEDS: LITHIUM CARBONATE 450 MG **CR** TAB PO (08:41)
[2018-02-21] MEDS: HALOPERIDOL 10 MG TAB PO ×2 (08:52→12:35)
== END 2018-02-21 13:55 | disposition home or self-care (01) | DRG 750 ==
LOC: M PSY 02-20 15:14 → M ED INP 02-14 13:36 → M ED 19:50 → M PSY 02-14 14:15
DX: F25.0 Schizoaffective disorder, bipolar type (principal); Z68.41 Body mass index [BMI] 40.0-44.9, adult; F70 Mild intellectual disabilities; E73.9 Lactose intolerance, unspecified; F60.3 Borderline personality disorder; E66.9 Obesity, unspecified; J45.909 Unspecified asthma, uncomplicated; R73.01 Impaired fasting glucose; S51.812A Laceration without foreign body of left forearm, initial encounter; X78.9XXA Intentional self-harm by unspecified sharp object, initial encounter; Y92.89 Other specified places as the place of occurrence of the external cause; Z79.899 Other long term (current) drug therapy

== ENCOUNTER 2018-03-24 17:09 | Inpatient (IN) | payer MEDICAID, OTHER ==
[~2018-03-24] VITALS: Ht 152.4 cm; Wt 101.8 kg
[~2018-03-24 17:09] MED LIST changes: +ABIL1INJ2 IM; +ABIL1TAB11 PO; +ABIL20TA5 PO; +ABIL400I IM; +AMAN100C18 PO; +AMAN100T PO; +ARIP10TAB PO; +ARIP1TAB2 PO; +ARNU1INH3 INH; +BENZ-52 PO; +CLON-412 PO; +CLONI1TA PO; +CLOZ100T PO; +CLOZ100T2 PO; +CLOZ25TA2 PO; +DIPH50CA PO; +GLUCTAB PO; +HALO10TA2 PO; +HALO1TAB29 PO; +HALO5TA PO; +JUNE1.5T PO; +LACT3000 PO; +LAMI1TAB7 PO; +LAMI1TAB8 PO; +LAMO150T2 PO; +LITH150C PO; +LITH300T PO; +LITH45TASA PO; +LITH600C PO; +LORA2TA PO; +METF-699 PO; +METF10004 PO; +METF500T4 PO; -METHACHOLINE KIT (J7674) INH; +OLAN5TAB PO; +PROP40TA62 PO; +QUET1TAB9 PO; +QUET5TAB PO; +SERO400T PO; +SERT-138 PO; +SERT50TA PO; +SYNT75TA PO; +TOPA1TAB PO; +TOPI25CA PO; +TOPI25TA10 PO; +TRAZ-160 PO; +TRAZO50TA PO; +VENTAER INH; +VITMTA PO; +ZOLO100T PO; +ZOLO25TA PO; +ZYPR5TAB2 PO
[2018-03-24] MEDS ORDERED: AIRD1INH2 INH (17:24)
[2018-03-24 18:29] LABS: HEMATOCRIT 41.5 % (36.0-47.0); HEMOGLOBIN 13.6 g/dl (12.0-15.5); MEAN CORPUSCULAR HEMOGLOBIN 31.2 pg (27.0-33.0); MEAN CORPUSCULAR HGB CONC 32.8 g/dl (32.0-36.5); MEAN CORPUSCULAR VOLUME 95.2 fl (80.0-96.0); PLATELET COUNT, AUTOMATED 329 10^3/uL (150-450); RED BLOOD COUNT 4.36 10^6/uL (4.00-5.40); WHITE BLOOD COUNT 9.1 10^3/uL (4.0-10.0)
[2018-03-24 19:07] LABS: HCG, SERUM QUALITATIVE NEGATIVE (NEGATIVE)
[2018-03-24 19:08] LABS: ALBUMIN 3.7 GM/DL (3.2-5.2); ALT/SGPT 24 U/L (12-78); BILIRUBIN,DIRECT < 0.1 MG/DL (0.0-0.2); BILIRUBIN,TOTAL 0.1 MG/DL (0.2-1.0); BLOOD UREA NITROGEN 18 MG/DL (7-18); CALCIUM LEVEL 9.2 MG/DL (8.5-10.1); CARBON DIOXIDE LEVEL 22 MEQ/L (21-32); CHLORIDE LEVEL 107 MEQ/L (98-107); CREATININE FOR GFR 0.85 MG/DL (0.55-1.30); GLOMERULAR FILTRATION RATE > 60.0 (>60); GLUCOSE, FASTING 91 MG/DL (70-100); LITHIUM LEVEL 0.62 MEQ/L (0.60-1.20); POTASSIUM SERUM 4.6 MEQ/L (3.5-5.1); SALICYLATE LEVEL < 1.7 MG/DL (5.0-30.0); SODIUM LEVEL 138 MEQ/L (136-145); TOTAL PROTEIN 7.2 GM/DL (6.4-8.2)
[2018-03-24 19:09] LABS: ACETAMINOPHEN LEVEL < 2.0 UG/ML (10.0-30.0); ETHYL ALCOHOL (ETHANOL) < 0.003 % (0.000-0.010)
[2018-03-24 20:03] LABS: AMPHETAMINES LEVEL URINE NEGATIVE (NEGATIVE); BARBITURATES URINE NEGATIVE (NEGATIVE); BENZODIAZEPINES URINE NEGATIVE (NEGATIVE); CANNABINOIDS URINE NEGATIVE (NEGATIVE); COCAINE METABOLITE URINE NEGATIVE (NEGATIVE); METHADONE URINE NEGATIVE (NEGATIVE); OPIATES URINE NEGATIVE (NEGATIVE); PHENCYCLIDINE URINE NEGATIVE (NEGATIVE)
[2018-03-24] MEDS ORDERED: cloZAPine 100 MG TAB (S0136) PO ONE (20:15)
[2018-03-24] MEDS ORDERED: LITHIUM CARBONATE 150 MG CAP PO ONE (20:15)
[2018-03-24] MEDS ORDERED: AMANTADINE 100 MG CAP PO ONE (20:15)
[2018-03-24] MEDS ORDERED: BENZTROPINE 0.5 MG TAB PO ONE (20:15)
[2018-03-24] MEDS ORDERED: IBUPROFEN 600 MG TAB PO ONE (20:15)
[2018-03-24] MEDS ORDERED: QUEtiapine FUMARATE 50 MG TAB PO ONE (20:15)
[2018-03-24] MEDS ORDERED: cloNIDine 0.1 MG TAB PO ONE (20:15)
[2018-03-24] MEDS ORDERED: metFORMIN (GLUCOPHAGE) 1000 MG TABLET PO ONE (20:15)
[2018-03-24] MEDS ORDERED: ACETAMINOPHEN TAB 650MG DOSE (2X325MG) PO ONE (20:15)
[2018-03-24 20:40] LABS: BASO # 0.1 10^3/uL (0.0-0.2); BASO % 0.8 % (0.0-1.0); EOS % 0.3 % (0.0-3.0); LYMPH # 3.4 10^3/uL (1.5-6.5); LYMPH % 36.7 % (24.0-44.0); MONO # 0.6 10^3/uL (0.0-0.8); MONO % 6.4 % (0.0-5.0); NEUTROPHILS # 5.2 10^3/uL (1.8-7.7); NEUTROPHILS % 55.3 % (36.0-66.0)
[2018-03-24] MEDS ORDERED: MOM 30ML SUSPENSION UDC PO PRN (20:45)
[2018-03-24] MEDS ORDERED: HALOPERIDOL 5 MG TAB PO ONE (20:45)
[2018-03-24] MEDS ORDERED: MAALOX 30 ML SUSP *UDC PO PRN (20:45)
[2018-03-24] MEDS ORDERED: TRAZ-186 PO (21:30)
[2018-03-24] MEDS ORDERED: LITH45TASA PO (21:30)
[2018-03-24] MEDS ORDERED: HALO10TA2 PO (21:30)
[2018-03-24] MEDS ORDERED: CLON-412 PO (21:30)
[2018-03-24] MEDS ORDERED: DIPH50CA29 PO (21:30)
[2018-03-24] MEDS ORDERED: BENZ-52 PO (21:30)
[2018-03-24] MEDS ORDERED: CLOZ100T2 PO (21:30)
[2018-03-24] MEDS ORDERED: QUET1TAB8 PO (21:30)
[2018-03-24] MEDS ORDERED: SERT-138 PO (21:30)
[2018-03-24] MEDS ORDERED: TOPA1TAB PO (21:30)
[2018-03-24 22:29] VITALS: BP 174/94
[2018-03-24] MEDS ORDERED: diphenhydrAMINE 50 MG CAP PO PRN (23:30)
[2018-03-24] MEDS ORDERED: ALBUTEROL 90 MCG/ACT 8GM HFA INHALER INH PRN (23:30)
[2018-03-24] MEDS: AMANTADINE 100 MG CAP PO SCH (23:37)
[2018-03-24] MEDS: cloNIDine 0.1 MG TAB PO SCH (23:38)
[2018-03-24] MEDS: cloZAPine 100 MG TAB (S0136) PO SCH (23:39)
[2018-03-24] MEDS: LITHIUM CARBONATE 450 MG **CR** TAB PO SCH (23:39)
[2018-03-24] MEDS: QUEtiapine FUMARATE 100 MG TAB PO SCH (23:40)
[2018-03-24] MEDS: TOPIRAMATE (TopAMAX) 25 MG TAB PO SCH (23:41)
[2018-03-24] MEDS ORDERED: LACTAID PO PRN (23:45)
[2018-03-24] MEDS: BENZTROPINE 1 MG TAB PO SCH (23:45)
[2018-03-24] MEDS: HALOPERIDOL 5 MG TAB PO SCH (23:45)
[2018-03-24] MEDS: metFORMIN XR 500MG TAB *GLUCOPHAGE XR PO SCH (23:45)
[2018-03-25] MEDS: TOPIRAMATE (TopAMAX) 25 MG TAB PO SCH ×2 (06:23→16:12)
[2018-03-25 06:40] VITALS: BP 132/78
[2018-03-25] MEDS: cloNIDine 0.1 MG TAB PO SCH ×3 (08:06→21:23)
[2018-03-25] MEDS: AMANTADINE 100 MG CAP PO SCH ×3 (08:07→21:27)
[2018-03-25] MEDS: HALOPERIDOL 5 MG TAB PO SCH ×3 (08:15→16:12)
[2018-03-25] MEDS: SERTRALINE 100 MG TAB PO SCH (09:00)
[2018-03-25] MEDS: AIRDUO RESPICLICK INH SCH ×2 (09:00→21:00)
[2018-03-25] MEDS: QUEtiapine FUMARATE 100 MG TAB PO SCH ×2 (09:00→21:26)
[2018-03-25] MEDS: LITHIUM CARBONATE 450 MG **CR** TAB PO SCH ×2 (09:05→21:25)
[2018-03-25] MEDS: metFORMIN XR 500MG TAB *GLUCOPHAGE XR PO SCH ×2 (10:22→21:26)
[2018-03-25] MEDS: ACETAMINOPHEN TAB 650MG DOSE (2X325MG) PO PRN (13:37)
[2018-03-25] MEDS ORDERED: HALOPERIDOL 5 MG TAB PO PRN (14:15)
[2018-03-25] MEDS ORDERED: diphenhydrAMINE 50 MG CAP PO PRN (14:15)
[2018-03-25 18:00] VITALS: BP 149/71
[2018-03-25] MEDS: cloZAPine 100 MG TAB (S0136) PO SCH (21:24)
[2018-03-25] MEDS: BENZTROPINE 1 MG TAB PO SCH (21:25)
[2018-03-25] MEDS: HALOPERIDOL 10 MG TAB PO SCH (21:26)
[2018-03-25] MEDS: traZODone 50 MG TAB PO PRN (21:27)
[2018-03-26] MEDS: TOPIRAMATE (TopAMAX) 25 MG TAB PO SCH ×2 (06:13→15:51)
[2018-03-26 06:58] VITALS: BP 135/84
[2018-03-26] MEDS: cloNIDine 0.1 MG TAB PO SCH ×3 (08:13→21:14)
[2018-03-26] MEDS: HALOPERIDOL 5 MG TAB PO SCH ×3 (08:14→16:04)
[2018-03-26] MEDS: metFORMIN XR 500MG TAB *GLUCOPHAGE XR PO SCH ×2 (08:14→21:15)
[2018-03-26] MEDS: QUEtiapine FUMARATE 100 MG TAB PO SCH ×2 (08:14→21:16)
[2018-03-26] MEDS: AMANTADINE 100 MG CAP PO SCH ×3 (08:14→21:15)
[2018-03-26] MEDS: SERTRALINE 100 MG TAB PO SCH (08:14)
[2018-03-26] MEDS: LITHIUM CARBONATE 450 MG **CR** TAB PO SCH ×2 (08:14→21:14)
[2018-03-26] MEDS: ACETAMINOPHEN TAB 650MG DOSE (2X325MG) PO PRN (08:15)
[2018-03-26] MEDS: AIRDUO RESPICLICK INH SCH ×2 (09:00→21:00)
[2018-03-26] MEDS: LORazepam 2 MG TAB PO PRN (13:24)
[2018-03-26 18:07] VITALS: BP 145/68
[2018-03-26] MEDS: HALOPERIDOL 10 MG TAB PO SCH (21:13)
[2018-03-26] MEDS: cloZAPine 100 MG TAB (S0136) PO SCH (21:14)
[2018-03-26] MEDS: traZODone 50 MG TAB PO PRN (21:16)
[2018-03-26] MEDS: BENZTROPINE 1 MG TAB PO SCH (21:16)
[2018-03-27] MEDS: TOPIRAMATE (TopAMAX) 25 MG TAB PO SCH ×2 (06:41→16:59)
[2018-03-27 06:44] VITALS: BP 137/88
[2018-03-27] MEDS: AMANTADINE 100 MG CAP PO SCH ×3 (08:32→21:20)
[2018-03-27] MEDS: HALOPERIDOL 5 MG TAB PO SCH ×3 (08:32→16:59)
[2018-03-27] MEDS: cloNIDine 0.1 MG TAB PO SCH ×3 (08:33→21:23)
[2018-03-27] MEDS: LITHIUM CARBONATE 450 MG **CR** TAB PO SCH ×2 (08:34→21:20)
[2018-03-27] MEDS: QUEtiapine FUMARATE 100 MG TAB PO SCH ×2 (08:34→21:21)
[2018-03-27] MEDS: SERTRALINE 100 MG TAB PO SCH (08:35)
[2018-03-27] MEDS: metFORMIN XR 500MG TAB *GLUCOPHAGE XR PO SCH ×2 (08:35→21:20)
[2018-03-27] MEDS: AIRDUO RESPICLICK INH SCH ×2 (09:00→21:00)
--- NOTE | 2018-03-27 10:04 | MHHPE ---
DATE OF ADMISSION: 03/24/2018 DATE OF EVALUATION: 03/25/2018 HISTORY OF PRESENT ILLNESS: This is one of multiple psychiatric hospitalizations for this 22-year-old white woman who is a resident of [facility]. She presents quite similarly stating that she was hearing voices telling her to hurt herself. She said that the voices started yesterday and she denied any particular stressor. She is very vague, but she admits that she does feel depressed. She is feeling hopeless and helpless. This patient has a significant history of self mutilation and borderline personality disorder and schizoaffective disorder. She is on the following medications: - Zoloft 150 mg daily - Cogentin 1 mg at night - Haldol 5 mg four times a day - Topamax 75 mg twice a day - Seroquel 150 mg twice a day - Clozaril 350 mg at night - lithium 400 mg - clonidine 0.1 mg three times a day - Benadryl 50 mg three times a day - trazodone 50 mg at night PAST PSYCHIATRIC HISTORY: The patient attends [employer]. She lives at [facility]. She was last hospitalized at [facility] in February 2018 and at that point that is when the Haldol was added to her regimen. On review of old records, she has been hospitalized numerous times, dating back to the age of 9. As I said, the patient has a history of cutting. FAMILY HISTORY: This is positive for schizophrenia in her father. ABUSE HISTORY: I did not elicit any history of any abuse in the patient. SUBSTANCE ABUSE: There is no history of substance abuse problems in this patient. REVIEW OF SYSTEMS: Blood pressure is 132/78, Respirations 16 and pulse 77. She is not exhibiting any distress. Neuromuscular system: Gait is normal. There are no involuntary movements. All other systems were reviewed and found to be negative. MENTAL STATUS EXAMINATION: The patient appears to be alert and oriented times three. Eye contact is poor. She is seen in bed. She responds with short sentences that are appropriate, she is not spontaneous. Mood is depressed. Affect is flat. She is not homicidal. She admits to having suicidal thoughts, but right now she is willing to contract for safety. She states that she has auditory hallucinations telling her to hurt others. I am not eliciting any other hallucinations or psychotic symptoms. Concentration is fair. Memory is intact. Insight and judgment poor. DIAGNOSES: 1. Schizoaffective disorder. 2. Borderline personality disorder. 3. Rule out borderline intellectual functioning. TREATMENT PLAN: At this point, we will further observe and evaluate this patient. She voiced suicidal ideation on admission. We will continue her other medications as noted above, except I will increase the Haldol from 5 mg twice a day to 5 mg three times a day and 10 mg at night. Also, as needed Ativan and Benadryl. We will continue one to one observation as noted above and we will involve her in individual, group and milieu therapy and when stable will discharge her home. SARINA
--- NOTE | 2018-03-27 10:16 | MHHPE ---
DATE OF ADMISSION: 03/24/2018 HISTORY OF THE PRESENT ILLNESS: Please refer to psychiatric history and evaluation for further details on this admission. This examination and history is intended for medical issues which may need treatment, follow-up or consultation on this 22-year-old female. PRIMARY CARE PROVIDER: [facility]. PAST MEDICAL HISTORY: Schizophrenia. Schizoaffective disorder. Bipolar disorder. Anxiety. Depression. History of suicidal ideation and homicidal ideation. History of self harm and cutting. Insomnia. Obesity. Impaired fasting glucose (IFG) Asthma. PAST SURGICAL HISTORY: Glidden teeth extraction. SOCIAL HISTORY: She lives in [place]. Lives in [facility] ([facility] She is single. She has no children. She does not smoke cigarettes. She does not drink alcohol. She does not use recreational drugs. FAMILY HISTORY: Mother and father are alive and well. Two sisters alive and well. She has no children. HOME MEDICATIONS: - trazodone 50 mg by mouth at bedtime as needed for insomnia - AirDuo RespiClick one inhalation twice a day - benztropine methylate 1 mg by mouth at bedtime - haloperidol 5 mg by mouth four times a day - control one by mouth at bedtime - Lactaid 6000 units by mouth as directed - metformin 1000 mg by mouth twice a day - albuterol two puffs by mouth four times a day as needed shortness of breath or wheeze - amantadine 100 mg by mouth three times a day - clonidine 0.1 mg by mouth three times a day - clozapine 350 mg by mouth at bedtime - diphenhydramine 50 mg by mouth three times a day as needed anxiety - lithium ER 450 mg by mouth twice a day - Seroquel 150 mg by mouth twice a day - sertraline 150 mg by mouth daily - Topamax 25 mg by mouth twice a day LABORATORY STUDIES: WBC 9.1, hemoglobin 13.6, hematocrit 41.5, platelets 329. Electrolytes were normal. BUN was 18, creatinine 0.85. Toxicology showed lithium level of 0.62. REVIEW OF SYSTEMS: Unremarkable. EKG on file, sinus rhythm, 12/25/2017. PHYSICAL EXAMINATION: 22-year-old cooperative obese female in no acute distress. Height 60 inches, weight 97 kg, BMI 41.8, blood pressure 132/78, pulse 78, respirations 16, temperature 97.2, oxygen saturation 98% on room air. The patient is alert and oriented times three. Pupils equal and react to light. EOM's are intact. Cornea and sclerae are clear. Conjunctivae are normal. No facial asymmetry. Pharynx, tongue and gums are pink and moist. Tongue is midline. Neck is supple without lymphadenopathy. No thyromegaly. No goiter. Carotids 2+ without bruit. Chest clear to auscultation without wheeze or retraction. Heart is regular. Abdomen benign. Bowel sounds are positive. /rectal not done. Extremities n cyanosis, clubbing or edema. Peripheral pulses are equal and palpable bilaterally. Skin is warm and dry. IMPRESSION/PLAN: 1. Psychiatric plan per psychiatry. 2. Impaired fasting glucose (IFG). Patient continues on metformin twice a day. Continue follow-up with primary care provider on discharge, [facility]. 3. Asthma. Currently clinically stable. Continue inhaler and albuterol as needed. 4. No acute medical issues.
[2018-03-27] MEDS: LORazepam 2 MG TAB PO PRN ×2 (15:47→19:37)
[2018-03-27 16:00] VITALS: BP 157/100
[2018-03-27 16:15] VITALS: BP 156/91
--- NOTE | 2018-03-27 16:20 | MHIR ---
General Date: Mar 27, 2018 Time Initiated: 16:18 Restraint Documentation Order/Evaluation FACE TO FACE: yes PHYSICIAN ASSESSMENT: bitting self, threatening to kill self REASON FOR RESTRAINT: Patient poses imminent danger of harming self as stated above DE-ESCALATION INTERVENTIONS ATTEMPTED BEFORE USE OF RESTRAINTS: redirection, prn medication [MECHANICAL AND/OR CHEMICAL] RESTRAINTS USED: mechanical only LENGTH OF TIME ORDERED IN RESTRAINTS: When the patient is no longer a threat to themselves or others WHEN TO DISCONTINUE RESTRAINTS: When the patient is no longer a threat to themselves or others Instituting behavioral contract plan. Post evaluation of restraint due in 24 hours. MORALES STANTON DO Mar 27, 2018 16:20
[2018-03-27 16:30] VITALS: BP 150/85
[2018-03-27 18:00] VITALS: BP 136/80
--- NOTE | 2018-03-27 18:33 | MHIPNPDOC ---
[facility] Progress Note Progress Note DATE OF SERVICE: 03/27/18 HISTORY: As per Dr. Oswald: "This is one of multiple psychiatric hospitalizations for this 22-year-old white woman who is a resident of [facility] ([facility]). She presents quite similarly stating that she was hearing voices telling her to hurt herself. She said that the voices started yesterday and she denied any particular stressor. She is very vague, but she admits that she does feel depressed. She is feeling hopeless and helpless. This patient has a significant history of self mutilation and borderline personality disorder and schizoaffective disorder. She is on the following medications: - Zoloft 150 mg daily - Cogentin 1 mg at night - Haldol 5 mg four times a day - Topamax 75 mg twice a day - Seroquel 150 mg twice a day - Clozaril 350 mg at night - lithium 400 mg - clonidine 0.1 mg three times a day - Benadryl 50 mg three times a day - trazodone 50 mg at night VITAL SIGNS: See below. NEW TEST RESULTS: See below CURRENT MEDICATIONS: See below. MENTAL STATUS EXAMINATION: Patient is a 22-year old female, who is alert, cooperative, laying in bed, wearing her glasses, she has a sitter. Speech: Slow, normal volume, normal tone, spontaneous at times like when she asked: Did you cut your hair?" Language skills are fair Thought processes including: linear. Thought content: focused on being depressed. Endorses suicidal thoughts and auditory hallucinations, the voices tell her to kill herself. Denies homicidal ideation and denies visual hallucinations. Description of abnormal or psychotic thoughts: She reports auditory varun lucinations but she is not responding to internal stimuli, she doesn't seem to be paranoid. She reports suicidal ideation Judgment: Poor Insight: Poor. Orientation: to place, person and partially to date and time. Recent and remote memory: fair. Attention span and concentration: fair. Fund of knowledge: below average Mood: sad Affect: congruent with mood DIAGNOSES: 1. Schizoaffective disorder, bipolar type 2. Borderline personality disorder 3. R/O borderline intellectual functioning ASSESSMENT: Patient was stable this morning and the Nurses reported she had been in behavioral control until that time (8:15 a.m). apparently this afternoon she escalated until she had to be restrained. Patient has had a history of angry when things don't go her way or when she knows her mother won't be with her. Her mother used to live in [place] and for a bout one year has been living in [place], jennifer frequently feels dissappointed because she can't live with her mother but she can't because of her behavioral problems. MANAGEMENT PLAN: Will continue with current treatment plan. TIME SPENT: 15 minutes. Vital Signs Vital Signs Date Time Temp Pulse Resp B/P (MAP) Pulse Ox O2 Delivery O2 Flow Rate FiO2 03/27/18 16:00 99.2 83 16 157/100 97 Room Air Laboratory Data 24H Labs Laboratory Tests 2 03/27/18 06:46: Bedside Glucose (Misc Panel) 86 03/27/18 17:06: Bedside Glucose (Misc Panel) 82 Current Medications Current Medications Acetaminophen (Tylenol Tab) 650 mg Q6HP PRN PO HEADACHE or DISCOMFORT Last administered on 03/26/18at 08:15; Start 03/24/18 at 20:45 Al Hydrox/Mg Hydrox/Simethicone (Mylanta) 30 ml Q4HP PRN PO HEARTBURN/INDIGESTION; Start 03/24/18 at 20:45 Albuterol Sulfate (Proventil, Ventolin Hfa) 2 puff QID PRN INH SHORTNESS OF BREATH; Start 03/24/18 at 23:30 Amantadine HCl (Symmetrel) 100 mg TID PO Last administered on 03/27/18at 16:59; Start 03/24/18 at 23:37 Benztropine Mesylate (Cogentin) 1 mg QHS PO Last administered on 03/26/18at 21:16; Start 03/24/18 at 23:45 Clonidine HCl (Catapres) 0.1 mg TID@0900,1200,2100 PO Last administered on 03/27/18at 11:48; Start 03/24/18 at 23:38 Clozapine (Clozaril) 350 mg QHS PO Last administered on 03/26/18at 21:14; Start 03/24/18 at 23:39 Diphenhydramine HCl (Benadryl) 50 mg Q4HP PRN PO ITCHING Last administered on 03/27/18at 15:47; Start 03/25/18 at 14:15 Diphenhydramine HCl (Benadryl) 50 mg TID PRN PO ANXIETY; Start 03/24/18 at 23:30; Stop 03/25/18 at 14:56; Status DC Haloperidol (Haldol) 5 mg Q4HP PRN PO anxiety or agitation Last administered on 03/27/18at 15:47; Start 03/25/18 at 14:15 Haloperidol (Haldol) 5 mg QID PO Last administered on 03/25/18at 12:21; Start 03/24/18 at 23:45; Stop 03/25/18 at 14:01; Status DC Haloperidol (Haldol) 5 mg TID@0900,1300,1700 PO Last administered on 03/27/18at 16:59; Start 03/25/18 at 17:00 Haloperidol (Haldol) 10 mg QHS PO Last administered on 03/26/18at 21:13; Start 03/25/18 at 21:00 Home Med (Med Rec Complete!) ASDIRECTED XX ; Start 03/24/18 at 21:45; Stop 03/24/18 at 21:45; Status DC [place] Carbonate (Eskalith-Cr) 450 mg BID PO Last administered on 03/27/18at 08:34; Start 03/24/18 at 23:39 Lorazepam (Ativan) 2 mg Q4HP PRN PO ANXIETY/AGITATION Last administered on 03/27/18at 15:47; Start 03/25/18 at 14:15 Magnesium Hydroxide (Milk Of Magnesia) 30 ml DAILYPRN PRN PO CONSTIPATION; Start 03/24/18 at 20:45 Metformin HCl (Glucophage Xr) 1,000 mg BID PO Last administered on 03/27/18at 08:35; Start 03/24/18 at 23:45 Miscellaneous (Unresolved Patient Own Med Order) SEE LABEL COMMENTS DAILY XX ; Start 03/25/18 at 09:00 Miscellaneous (Unresolved Patient Own Med Order) SEE LABEL COMMENTS DAILY XX ; Start 03/25/18 at 09:00 Miscellaneous (Unresolved Patient Own Med Order) SEE LABEL COMMENTS DAILY XX ; Start 03/25/18 at 09:00 Patient Own Medication (Patient'S Own Med) AirDuo Resp. 113/ 14 ... BID INH ; Start 03/25/18 at 09:00; Status UNV Patient Own Medication (Patient'S Own Med) Tab 1.5... QHS PO ; Start 03/25/18 at 21:00; Status UNV Patient Own Medication (Patient'S Own Med) Lactaid 3,000 unit tabl... ASDIRECTED PRN PO DAIRY; Start 03/24/18 at 23:45; Status UNV Quetiapine Fumarate (SEROquel) 150 mg BID PO Last administered on 03/27/18at 08:34; Start 03/24/18 at 23:40 Sertraline HCl (Zoloft) 150 mg DAILY PO Last administered on 03/27/18at 08:35; Start 03/25/18 at 09:00 Topiramate (TopAMAX) 25 mg BID@0630,1630 PO Last administered on 03/27/18at 16:59; Start 03/24/18 at 23:41 Trazodone HCl (Desyrel) 50 mg QHSP PRN PO INSOMNIA Last administered on 03/26/18at 21:16; Start 03/24/18 at 20:45 Allergies Coded Allergies: Lactose Intolerance (GI) (Unverified Adverse Reaction, Unknown, 11/19/17) JAYNE GUZMAN MD Mar 27, 2018 18:23
--- NOTE | 2018-03-27 20:37 | MHIPN ---
DATE: 03/26/2018 The patient today continues to say she is having auditory hallucinations telling her to hurt herself, not able to contract for safety and so she has been on one-to-one observation. She says she is also feeling depressed. She did sleep okay last night. MENTAL STATUS EXAMINATION: She is alert and oriented times three, pleasant and cooperative, verbally spontaneous. There is no formal thought disorder noted. Mood is depresed, affect full range. She continues to state she has command auditory hallucinations telling her to kill herself. She is not homicidal. Concentration fair. Memory intact. Insight and judgment poor. DIAGNOSES: Schizoaffective disorder, depressed, and borderline personality disorder. TREATMENT PLAN: We will continue to monitor the patient on one-to-one observation level for the command auditory hallucinations. I just increased her Haldol dose yesterday which she is tolerating okay and we will continue to adjust her medications as indicated.
[2018-03-27] MEDS: BENZTROPINE 1 MG TAB PO SCH (21:20)
[2018-03-27] MEDS: HALOPERIDOL 10 MG TAB PO SCH (21:20)
[2018-03-27] MEDS: cloZAPine 100 MG TAB (S0136) PO SCH (21:20)
[2018-03-28] MEDS: TOPIRAMATE (TopAMAX) 25 MG TAB PO SCH ×2 (06:25→16:33)
[2018-03-28 07:00] VITALS: BP 147/60
[2018-03-28] MEDS: AIRDUO RESPICLICK INH SCH ×2 (09:00→21:35)
[2018-03-28] MEDS: cloNIDine 0.1 MG TAB PO SCH ×3 (09:14→21:31)
[2018-03-28] MEDS: LITHIUM CARBONATE 450 MG **CR** TAB PO SCH ×2 (09:14→21:32)
[2018-03-28] MEDS: AMANTADINE 100 MG CAP PO SCH ×3 (09:15→21:33)
[2018-03-28] MEDS: HALOPERIDOL 5 MG TAB PO SCH ×3 (09:15→16:33)
[2018-03-28] MEDS: QUEtiapine FUMARATE 100 MG TAB PO SCH ×2 (09:15→21:32)
[2018-03-28] MEDS: SERTRALINE 100 MG TAB PO SCH (09:15)
[2018-03-28] MEDS: metFORMIN XR 500MG TAB *GLUCOPHAGE XR PO SCH ×2 (09:16→21:33)
--- NOTE | 2018-03-28 11:31 | MHPR ---
General Date: Mar 27, 2018 Time: 20:00 Post-Restraint Evaluation THE OUTCOME OF THE RESTRAINT: good EFFECTIVENESS OF THE RESTRAINT: Mechanical - Positive. ANY EVIDENCE THAT THE PATIENT WAS AFFECTED EMOTIONALLY: no ANY NEED FOR COUNSELING/ASSISTANCE: no CHANGES IN TREATMENT PLAN: institute behavioral contract plan RECOMMENDATIONS FOR FUTURE INCIDENTS: continue current protocol and behavioral contract MORALES STANTON DO Mar 28, 2018 11:31
[2018-03-28 18:28] VITALS: BP 126/70
--- NOTE | 2018-03-28 19:50 | MHIPNPDOC ---
[facility] Progress Note Progress Note DATE OF SERVICE: 03/28/18 HISTORY: As per Dr. Oswald: "This is one of multiple psychiatric hospitalizations for this 22-year-old white woman who is a [facility] of [facility] ([facility]). She presents quite similarly stating that she was hearing voices telling her to hurt herself. She said that the voices started yesterday and she denied any particular stressor. She is very vague, but she admits that she does feel depressed. She is feeling hopeless and helpless. This patient has a significant history of self mutilation and borderline personality disorder and schizoaffective disorder. She is on the following medications: - Zoloft 150 mg daily - Cogentin 1 mg at night - Haldol 5 mg four times a day - Topamax 75 mg twice a day - Seroquel 150 mg twice a day - Clozaril 350 mg at night - lithium 400 mg - clonidine 0.1 mg three times a day - Benadryl 50 mg three times a day - trazodone 50 mg at night VITAL SIGNS: See below. NEW TEST RESULTS: See below CURRENT MEDICATIONS: See below. MENTAL STATUS EXAMINATION: Patient was laying in bed wrapped in her blankets. She was sleepy but was not uncooperative. She seemed depressed, her affect was flat. Her speech was low volume, slow, normal tone, non spontaneous, with short and brief responses. Her thought process was linear, her thought content was full of cognitive distortions, over generalization, for example, when she thinks nobody loves her, nobody cares about her. She didn't deny, didn't admit to have SI, she denied having HI, she reported auditory hallucinations and thoughts of self harm DIAGNOSES: 1. Schizoaffective disorder, bipolar type 2. Borderline personality disorder 3. R/O borderline intellectual functioning ASSESSMENT: Patient was coded yesterday and she was very sedated today. Apparently she started punching the wall, cursing, biting herself. She spent sleeping the entire day. She said she didn't remember whet had happened or what had triggered the episode, she said she felt very tired, she didn't feel like talking, she could only say she still felt depressed. According to Nursing staff she was hoping on getting her clothes from [facility] and apparently [facility] staff was going to bring her clothes but they didn't. This is not the first time something like that happens. It has happened before, when they don't bring her shoes, her clothes or her glasses. The patient's angry outbursts are partly caused by the attitude of the staff that doesn't know how to deal with her behavioral problems. MANAGEMENT PLAN: Will ask d/c resource management planner to speak to [facility] workers for them to come to a meeting to speak about patient's situation TIME SPENT: 15 minutes. Vital Signs Vital Signs Date Time Temp Pulse Resp B/P (MAP) Pulse Ox O2 Delivery O2 Flow Rate FiO2 03/28/18 18:28 98.2 90 18 126/70 (88) 03/27/18 16:30 98 Room Air Laboratory Data 24H Labs Laboratory Tests 2 03/28/18 16:37: Bedside Glucose (Misc Panel) 83 Current Medications Current Medications Acetaminophen (Tylenol Tab) 650 mg Q6HP PRN PO HEADACHE or DISCOMFORT Last administered on 03/26/18at 08:15; Start 03/24/18 at 20:45 Al Hydrox/Mg Hydrox/Simethicone (Mylanta) 30 ml Q4HP PRN PO HEARTBURN/INDIGESTION; Start 03/24/18 at 20:45 Albuterol Sulfate (Proventil, Ventolin Hfa) 2 puff QID PRN INH SHORTNESS OF BREATH; Start 03/24/18 at 23:30 Amantadine HCl (Symmetrel) 100 mg TID PO Last administered on 03/28/18at 16:33; Start 03/24/18 at 23:37 Benztropine Mesylate (Cogentin) 1 mg QHS PO Last administered on 03/27/18at 21:20; Start 03/24/18 at 23:45 Clonidine HCl (Catapres) 0.1 mg TID@0900,1200,2100 PO Last administered on 03/28/18at 12:42; Start 03/24/18 at 23:38 Clozapine (Clozaril) 350 mg QHS PO Last administered on 03/27/18at 21:20; Start 03/24/18 at 23:39 Diphenhydramine HCl (Benadryl) 50 mg Q4HP PRN PO ITCHING Last administered on 03/27/18at 15:47; Start 03/25/18 at 14:15 Diphenhydramine HCl (Benadryl) 50 mg TID PRN PO ANXIETY; Start 03/24/18 at 23:30; Stop 03/25/18 at 14:56; Status DC Haloperidol (Haldol) 5 mg Q4HP PRN PO anxiety or agitation Last administered on 03/27/18at 15:47; Start 03/25/18 at 14:15 Haloperidol (Haldol) 5 mg QID PO Last administered on 03/25/18at 12:21; Start 03/24/18 at 23:45; Stop 03/25/18 at 14:01; Status DC Haloperidol (Haldol) 5 mg TID@0900,1300,1700 PO Last administered on 03/28/18at 16:33; Start 03/25/18 at 17:00 Haloperidol (Haldol) 10 mg QHS PO Last administered on 03/27/18at 21:20; Start 03/25/18 at 21:00 Home Med (Med Rec Complete!) ASDIRECTED XX ; Start 03/24/18 at 21:45; Stop at 21:45; Status DC [place] Carbonate (Eskalith-Cr) 450 mg BID PO Last administered on 03/28/18at 09:14; Start 03/24/18 at 23:39 Lorazepam (Ativan) 2 mg Q4HP PRN PO ANXIETY/AGITATION Last administered on 03/27/18at 19:37; Start 03/25/18 at 14:15 Magnesium Hydroxide (Milk Of Magnesia) 30 ml DAILYPRN PRN PO CONSTIPATION; Start 03/24/18 at 20:45 Metformin HCl (Glucophage Xr) 1,000 mg BID PO Last administered on 03/28/18at 09:16; Start 03/24/18 at 23:45 Miscellaneous (Unresolved Patient Own Med Order) SEE LABEL COMMENTS DAILY XX ; Start 03/25/18 at 09:00; Stop 03/28/18 at 16:18; Status DC Miscellaneous (Unresolved Patient Own Med Order) SEE LABEL COMMENTS DAILY XX ; Start 03/25/18 at 09:00; Stop 03/28/18 at 16:23; Status DC Miscellaneous (Unresolved Patient Own Med Order) SEE LABEL COMMENTS DAILY XX ; Start 03/25/18 at 09:00 Patient Own Medication (Patient'S Own Med) 1 puff twice daily BID INH ; Start 03/25/18 at 09:00 Patient Own Medication (Patient'S Own Med) Lactaid 3,000 unit tabl... ASDIRECTED PRN PO DAIRY; Start 03/24/18 at 23:45; Status UNV Patient Own Medication (Patient'S Own Med) TAKE 1 TABLET BY MOUTH... QHS PO ; Start 03/28/18 at 21:00 Quetiapine Fumarate (SEROquel) 150 mg BID PO Last administered on 03/28/18at 09:15; Start 03/24/18 at 23:40 Sertraline HCl (Zoloft) 150 mg DAILY PO Last administered on 03/28/18at 09:15; Start 03/25/18 at 09:00 Topiramate (TopAMAX) 25 mg BID@0630,1630 PO Last administered on 03/28/18at 16:33; Start 03/24/18 at 23:41 Trazodone HCl (Desyrel) 50 mg QHSP PRN PO INSOMNIA Last administered on 03/26/18at 21:16; Start 03/24/18 at 20:45 Allergies Coded Allergies: Lactose Intolerance (GI) (Unverified Adverse Reaction, Unknown, 11/19/17) JAYNE GUZMAN MD Mar 28, 2018 19:50
[2018-03-28] MEDS ORDERED: BLISOVI FE PO SCH (21:00)
[2018-03-28] MEDS: cloZAPine 100 MG TAB (S0136) PO SCH (21:31)
[2018-03-28] MEDS: HALOPERIDOL 10 MG TAB PO SCH (21:32)
[2018-03-28] MEDS: traZODone 50 MG TAB PO PRN (21:32)
[2018-03-28] MEDS: BENZTROPINE 1 MG TAB PO SCH (21:33)
[2018-03-29] MEDS: TOPIRAMATE (TopAMAX) 25 MG TAB PO SCH (06:27)
[2018-03-29 07:00] VITALS: BP 117/71
[2018-03-29] MEDS: AIRDUO RESPICLICK INH SCH (08:23)
[2018-03-29] MEDS: SERTRALINE 100 MG TAB PO SCH (08:24)
[2018-03-29] MEDS: QUEtiapine FUMARATE 100 MG TAB PO SCH (08:24)
[2018-03-29] MEDS: metFORMIN XR 500MG TAB *GLUCOPHAGE XR PO SCH (08:24)
[2018-03-29] MEDS: AMANTADINE 100 MG CAP PO SCH (08:25)
[2018-03-29] MEDS: cloNIDine 0.1 MG TAB PO SCH ×2 (08:25→11:46)
[2018-03-29] MEDS: HALOPERIDOL 5 MG TAB PO SCH ×2 (08:25→12:01)
[2018-03-29] MEDS: LITHIUM CARBONATE 450 MG **CR** TAB PO SCH (08:25)
[2018-03-29] MEDS ORDERED: HALO1TAB29 PO (10:19)
[2018-03-29 11:46] VITALS: BP 132/76
[2018-03-29] MEDS ORDERED: CLOZ25TA2 PO (12:49)
[2018-03-29] MEDS ORDERED: CLOZ100T PO (12:49)
[2018-03-29] MEDS ORDERED: CLON-412 (15:31)
[2018-03-29] MEDS ORDERED: CLON-412 PO (15:34)
--- NOTE | 2018-03-29 16:50 | MHDSPDOC ---
[facility] Discharge Summary Discharge Summary DATE OF ADMISSION: Mar 24, 2018 at 20:31 DATE OF DISCHARGE: Mar 29, 2018 at 13:53 DISCHARGE DIAGNOSES: 1. Schizoaffective disorder, bipolar type 2. Borderline personality disorder 3. R/O borderline intellectual functioning REASON FOR ADMISSION: As per ED report: "Reason for Referral Pt called 911 asking to be brought to the hospital because she was hearing voices telling her to kill herself by cutting her wrists. Chief Complaint Pt called 911 requesting to be taken to the hospital because of auditory hallucinations. Pt states the voices are telling her to kill herself by cutting her wrists. Pt reports hearing the voices for the last few days, with it increasing since early this afternoon. Pt reports she cannot contract for safety and does not feel safe returning home. Pt currently lives at [facility]. Pt is in outpatient treatment at [facility] with Anna for counseling and Kita for medications." CONSULTANTS INVOLVED: None TREATMENT AND PROGRESS ON THE UNIT : Patient was able to remain in behavioral control through the weekend but the day before yesterday (03/27/18) she had an anger outburst when she was biting herself, punching the teague, being loud to staff. She had to be chemically and mechanically restrained. she had a good resp onse to medications. She was very sleepy yesterday as a consequence of the medications but she was cooperative, she spoke to me and said she still felt sad/depressed but was not able to deny or admit SI. Today she said she was not longer suicidal, not homicidal and not psychotic. Expressed her desire to go back to [facility]. [facility] staff was contacted and they said they didn't have a problem with her coming back. she was stable at the time of her discharge. HOSPITAL COURSE: As above DISCHARGE ASSESSMENT: Patient was not suicidal, not homicidal and not psychotic MENTAL STATUS EXAMINATION ON DISCHARGE: Patient is a 22-year old female, who is alert, cooperative, laying in bed, wearing her glasses, she has a sitter. Speech: Slow, normal volume, normal tone. today she asked me: Dr. Guzman, I'm ready to be without a sitter" Language skills are fair Thought processes including: linear. Thought content: Denies SI/HI, denies AV hallucinations, denies thought delusions, she feels happy of going back to [facility] Description of abnormal or psychotic thoughts: She is not suicidal, not homicidal and not psychotic. Judgment: Improved Insight: Improved Orientation: x 3 Recent and remote memory: fair. Attention span and concentration: fair. Fund of knowledge: below average Mood: Euthymic, happy Affect: congruent with mood DIAGNOSES: 1. Schizoaffective disorder, bipolar type 2. Borderline personality disorder 3. R/O borderline intellectual functioning MEDICATIONS ON DISCHARGE: Scheduled ( 1.5-30 mg-Mcg) 1 Tab Tab, 1 TAB PO QHS, (Reported) (Airduo Respiclick 113 113-14 Mcg/Act) 1 Inh Inh, 1 PUFF INH BID, (Reported) Amantadine HCl (Amantadine HCl) 100 Mg Tab, 100 MG PO TID, (Reported) Benztropine Mesylate (Benztropine Mesylate) 1 Mg Tab, 1 MG PO QHS, (Reported) Clonidine Hydrochloride (Clonidine HCl) 0.1 Mg Tab, 0.1 MG PO TID for mood, #90 Clozapine (Clozaril) 25 Mg Tab, 50 MG PO QPM for schizophrenia for 30 Days, #60 Clozapine (Clozaril) 100 Mg Tab, 3 TAB PO QPM for schizophrenia for 30 Days, #90 Haloperidol (Haloperidol) 10 Mg Tab, 5 MG PO QID, (Reported) Haloperidol (Haloperidol) 10 Mg Tab, 10 MG PO QHS for psychosis/agitation, #7 Lactase (Lactaid) 3,000 Unit Tab, 6,000 UNIT PO ASDIRECTED, (Reported) TAKES 2 TABS ANY TIME PATIENT HAS DAIRY [place] Carbonate ([place] Carbonate ER) 450 Mg Tabcr, 450 MG PO BID, (Reported) Metformin Hydrochloride (Metformin HCl ER) 500 Mg Tab, 1,000 MG PO BID, (Reported) Quetiapine Fumerate (Quetiapine Fumarate) 100 Mg Tab, 150 MG PO BID, (Reported) Sertraline HCl (Sertraline HCl) 100 Mg Tab, 150 MG PO DAILY, (Reported) Topiramate (Topamax) 25 Mg Tab, 25 MG PO BID, (Reported) TAKES AT 0630 AND 1630 Scheduled PRN Albuterol Sulfate (Ventolin Hfa) 108 Mcg/Act Aer, 2 PUFFS INH QID PRN for SHORTNESS OF BREATH, (Reported) Diphenhydramine HCl (Banophen) 50 Mg Cap, 50 MG PO TID PRN for ANXIETY, (Reported) Trazodone HCl (Trazodone Hydrochloride) 50 Mg Tab, 50 MG PO QHS PRN for INSOMNIA, (Reported) PLAN/FOLLOWUP ARRANGEMENTS: She will go back to [facility], where she resides. Follow Up Care Education Label * Mental Health Appt 1 * Mental [facility] * Established With This Provider Yes * Therapist Anna * Date Apr 03, 2018 * Time 09:30 * Address of Clinic or Practice [address] [place] [address] * Follow Up Care Education Label * Mental Health Appt 2 * [facility] * Established With This Provider Yes * Therapist Kita * Date Apr 05, 2018 * Time 13:00 * Address of Clinic or Practice [address] [place] [address] * Follow Up Care Education Label * Medical * Medical Follow Up [facility] * Established With This Provider Yes * Therapist Ronald Chandler * Date Apr 05, 2018 * Time 09:40 * Address of Clinic or Practice [address] [place] [address] * The amount of time spent in the coordination of care for this patient was approximately 30 minutes. Vital Signs/I&Os Vital Signs Date Time Temp Pulse Resp B/P (MAP) Pulse Ox O2 Delivery O2 Flow Rate FiO2 03/29/18 11:46 132/76 03/29/18 07:00 96.8 79 14 03/27/18 16:30 98 Room Air Laboratory Data Labs 24H Laboratory Tests 2 03/28/18 16:37: Bedside Glucose (Misc Panel) 83 03/29/18 06:25: Bedside Glucose (Misc Panel) 88 Medications Scheduled ( 1.5-30 mg-Mcg) 1 Tab Tab, 1 TAB PO QHS, (Reported) (Airduo Respiclick 113/14 113-14 Mcg/Act) 1 Inh Inh, 1 PUFF INH BID, (Reported) Amantadine HCl (Amantadine HCl) 100 Mg Tab, 100 MG PO TID, (Reported) Benztropine Mesylate (Benztropine Mesylate) 1 Mg Tab, 1 MG PO QHS, (Reported) Clonidine Hydrochloride (Clonidine HCl) 0.1 Mg Tab, 0.1 MG PO TID for mood, #90 Clozapine (Clozaril) 25 Mg Tab, 50 MG PO QPM for schizophrenia for 30 Days, #60 Clozapine (Clozaril) 100 Mg Tab, 3 TAB PO QPM for schizophrenia for 30 Days, #90 Haloperidol (Haloperidol) 10 Mg Tab, 5 MG PO QID, (Reported) Haloperidol (Haloperidol) 10 Mg Tab, 10 MG PO QHS for psychosis/agitation, #7 Lactase (Lactaid) 3,000 Unit Tab, 6,000 UNIT PO ASDIRECTED, (Reported) TAKES 2 TABS ANY TIME PATIENT HAS DAIRY [place] Carbonate ([place] Carbonate ER) 450 Mg Tabcr, 450 MG PO BID, (Reported) Metformin Hydrochloride (Metformin HCl ER) 500 Mg Tab, 1,000 MG PO BID, (Reported) Quetiapine Fumerate (Quetiapine Fumarate) 100 Mg Tab, 150 MG PO BID, (Reported) Sertraline HCl (Sertraline HCl) 100 Mg Tab, 150 MG PO DAILY, (Reported) Topiramate (Topamax) 25 Mg Tab, 25 MG PO BID, (Reported) TAKES AT 0630 AND 1630 Scheduled PRN Albuterol Sulfate (Ventolin Hfa) 108 Mcg/Act Aer, 2 PUFFS INH QID PRN for SHORTNESS OF BREATH, (Reported) Diphenhydramine HCl (Banophen) 50 Mg Cap, 50 MG PO TID PRN for ANXIETY, (Reported) Trazodone HCl (Trazodone Hydrochloride) 50 Mg Tab, 50 MG PO QHS PRN for INSOMNIA, (Reported) Allergies Coded Allergies: Lactose Intolerance (GI) (Unverified Adverse Reaction, Unknown, 11/19/17) JAYNE GUZMAN MD Mar 29, 2018 16:44
== END 2018-03-29 13:53 | disposition home or self-care (01) | DRG 750 ==
LOC: M ED 17:09 → M ED INP 20:31 → M PSY 22:29
PROVIDERS: ADMIT Psychiatry & Neurology Psychiatry; ATTEND Psychiatry & Neurology Psychiatry
DX: F25.0 Schizoaffective disorder, bipolar type (principal); F60.3 Borderline personality disorder; Z91.5 Personal history of self-harm; Z81.8 Family history of other mental and behavioral disorders; R41.83 Borderline intellectual functioning; G47.00 Insomnia, unspecified; E66.9 Obesity, unspecified; R73.01 Impaired fasting glucose; J45.909 Unspecified asthma, uncomplicated; Z79.84 Long term (current) use of oral hypoglycemic drugs; Z79.899 Other long term (current) drug therapy; Z68.41 Body mass index [BMI] 40.0-44.9, adult

== ENCOUNTER 2018-04-08 17:17 | Emergency (ER) | payer MEDICAID, OTHER ==
[~2018-04-08] VITALS: Ht 152.4 cm; Wt 100.0 kg
[~2018-04-08 17:17] MED LIST changes: +AIRD1INH2 INH; +CLON-412; +DIPH50CA29 PO; +QUET1TAB8 PO; +TRAZ-186 PO
[2018-04-08 18:01] VITALS: BP 119/76
[2018-04-08] MEDS ORDERED: HALOPERIDOL 10 MG TAB PO ONE (18:15)
[2018-04-08] MEDS ORDERED: HALOPERIDOL 5 MG TAB PO SCH (18:15)
[2018-04-08] MEDS ORDERED: HALOPERIDOL 5 MG TAB PO PRN (18:40)
== END 2018-04-08 18:49 | disposition home or self-care (01) ==
LOC: M ED 17:17
DX: Z76.0 Encounter for issue of repeat prescription (principal); E11.9 Type 2 diabetes mellitus without complications; Z79.899 Other long term (current) drug therapy; Z79.84 Long term (current) use of oral hypoglycemic drugs; E73.9 Lactose intolerance, unspecified

== ENCOUNTER 2018-04-23 19:10 | Inpatient (IN) | payer MEDICAID, OTHER ==
[~2018-04-23] VITALS: Ht 152.4 cm; Wt 100.0 kg
[2018-04-23 20:05] LABS: HEMATOCRIT 41.1 % (36.0-47.0); HEMOGLOBIN 13.3 g/dl (12.0-15.5); MEAN CORPUSCULAR HGB CONC 32.4 g/dl (32.0-36.5); MEAN CORPUSCULAR VOLUME 95.8 fl (80.0-96.0); PLATELET COUNT, AUTOMATED 306 10^3/uL (150-450); RED BLOOD COUNT 4.29 10^6/uL (4.00-5.40); WHITE BLOOD COUNT 9.6 10^3/uL (4.0-10.0)
[2018-04-23 20:23] LABS: HCG, SERUM QUALITATIVE NEGATIVE (NEGATIVE)
[2018-04-23 20:31] LABS: AMPHETAMINES LEVEL URINE NEGATIVE (NEGATIVE); BARBITURATES URINE NEGATIVE (NEGATIVE); BENZODIAZEPINES URINE NEGATIVE (NEGATIVE); CANNABINOIDS URINE NEGATIVE (NEGATIVE); COCAINE METABOLITE URINE NEGATIVE (NEGATIVE); METHADONE URINE NEGATIVE (NEGATIVE); OPIATES URINE NEGATIVE (NEGATIVE); PHENCYCLIDINE URINE NEGATIVE (NEGATIVE)
[2018-04-23 20:41] LABS: ACETAMINOPHEN LEVEL < 2.0 UG/ML (10.0-30.0); ALBUMIN 3.5 GM/DL (3.2-5.2); ALT/SGPT 19 U/L (12-78); BILIRUBIN,DIRECT < 0.1 MG/DL (0.0-0.2); BILIRUBIN,TOTAL 0.1 MG/DL (0.2-1.0); BLOOD UREA NITROGEN 17 MG/DL (7-18); CALCIUM LEVEL 8.7 MG/DL (8.5-10.1); CARBON DIOXIDE LEVEL 24 MEQ/L (21-32); CHLORIDE LEVEL 108 MEQ/L (98-107); CREATININE FOR GFR 0.76 MG/DL (0.55-1.30); ETHYL ALCOHOL (ETHANOL) < 0.003 % (0.000-0.010); GLOMERULAR FILTRATION RATE > 60.0 (>60); GLUCOSE, FASTING 70 MG/DL (70-100); POTASSIUM SERUM 4.1 MEQ/L (3.5-5.1); SALICYLATE LEVEL < 1.7 MG/DL (5.0-30.0); SODIUM LEVEL 141 MEQ/L (136-145); TOTAL PROTEIN 7.2 GM/DL (6.4-8.2)
[2018-04-24] MEDS ORDERED: BENZTROPINE 1 MG TAB PO ONE (00:15)
[2018-04-24] MEDS ORDERED: traZODone 50 MG TAB PO ONE (00:15)
[2018-04-24] MEDS ORDERED: QUEtiapine FUMARATE 50 MG TAB PO ONE ×2 (00:15→09:15)
[2018-04-24] MEDS ORDERED: cloNIDine 0.1 MG TAB PO ONE ×2 (00:15→09:15)
[2018-04-24] MEDS ORDERED: cloZAPine 100 MG TAB (S0136) PO ONE (00:38)
[2018-04-24] MEDS ORDERED: PILL CRUSHER/CUTTER 1 EACH XX PRN (00:45)
[2018-04-24 01:12] LABS: LITHIUM LEVEL 0.55 MEQ/L (0.60-1.20)
[2018-04-24] MEDS ORDERED: metFORMIN XR 500MG TAB *GLUCOPHAGE XR PO ONE (09:15)
[2018-04-24] MEDS ORDERED: LITHIUM CARBONATE 150 MG CAP PO ONE (09:15)
[2018-04-24] MEDS ORDERED: metFORMIN (GLUCOPHAGE) 1000 MG TABLET PO ONE (09:15)
[2018-04-24] MEDS ORDERED: SERTRALINE HCL 50 MG TAB PO ONE (09:15)
[2018-04-24] MEDS ORDERED: LITHIUM CARBONATE 450 MG **CR** TAB PO ONE (09:30)
[2018-04-24] MEDS ORDERED: MAALOX 30 ML SUSP *UDC PO PRN (12:00)
[2018-04-24] MEDS ORDERED: MOM 30ML SUSPENSION UDC PO PRN (12:00)
[2018-04-24] MEDS ORDERED: CLOZ100T2 PO (13:15)
[2018-04-24] MEDS ORDERED: CLON-412 PO (13:15)
[2018-04-24] MEDS ORDERED: CLOZ25TA3 PO (13:15)
[2018-04-24] MEDS ORDERED: HALO10TA2 PO (13:19)
[2018-04-24 13:44] VITALS: BP 142/90
[2018-04-24 18:00] VITALS: BP 134/90
[2018-04-24] MEDS ORDERED: traZODone 50 MG TAB PO PRN (18:15)
[2018-04-24] MEDS ORDERED: diphenhydrAMINE 50 MG CAP PO PRN (18:15)
[2018-04-24] MEDS ORDERED: ALBUTEROL 90 MCG/ACT 8GM HFA INHALER INH PRN (18:15)
--- NOTE | 2018-04-24 18:30 | MHHPEPDOC ---
[facility] History & Physical History and Physical DATE OF ADMISSION: Apr 24, 2018 at 11:56 LEGAL STATUS AT ADMISSION: 9.39 CHIEF COMPLAINT: Suicidal thoughts after phone conversation with mother that didn't go well HISTORY OF PRESENT ILLNESS: Patient is a 22-year-old female, who according to ED report: " Patient arrived with police following suicidal threats at home. Staff from the [facility] contacted police stating that patient was threatening to cut her neck & jump from a bridge into the [place]. Police reported that upon their arrival, patient stated that she was experiencing AH to kill herself by the aforementioned methods, & that she intended to follow those commands. Police reported that she became agitated & insisted that she was not going with them into custody, & that she attempted to flee. She was verbally agitated upon arrival, however calmed down after hangcuffs were removed & police left the [facility]HU. During interview, patient reported the same hx. She stated that she had been in touch with her mother earlier today via telephone, and that their conversation did not go well. She admits that she has been depressed due to her mother's geographical separation from her (mother resides in [place]), & that she has indeed been hearing voices telling her to kill herself. She maintains that she is continuing to experience those AH & that she still feels suicidal. At this time she is unable to say that she would be safe outside of the hospital. Per review of patient's EMR, she has h/o Schizoaffective D/O & has been here under similar circumstances with her previous admissions." Psychiatric Review of Systems Depression (2 or more weeks): depressed mood, feelings of worthlessness, ho pelessness, helplessness, low energy levels, difficulty concentrating, suicidal thoughts Krystal (4 or more days of): She reports occasional racing thoughts, irritability, mood swings Psychosis: auditory hallucination Anxiety: stressor related anxiety. she reports that sometimes she experiences panic attacks and she says her anxiety levels increased during and after the telephone conversation with her mother. Anxiety/ 6 months or more of: restlessness, keyed up, irritability, personality cluster A,BC (cluster b) Past Psychiatric History Prior Psychiatric Disorder: History of schizophrenia, depression, and borderline personality d/o Prior Psychiatric Admissions: Multiple on [facility], she has been at [facility] too. Outpatient Treatment: She lives at [facility] where she receives treatment Suicidal/Self injurious:Previous history of outbursts, reported by her mother, who stated the patient has a tendency to act out when she is upset about something. Patient has a tendency to cut/scratch her arms, she punches teague, bangs her head against them, bites herself when she is upset. Psychotropic Medication History: She is on multiple psychiatric medications and she has been treated for mental illness since she was 9 years old. Past Medical History Medical Problems 1. Obesity 2. Possibly pre diabetic Head Injury: No Seizures: No Hospitalizations: Yes (psych related) Surgeries: No Family Medical/Psychiatric HX Medical Problems denies Psychiatric Disorders: Yes (father with schizophrenia) Addiction: No Suicide Attemps/Completions: No Addiction History denies Social History Early Relations/development: She has two siblings, has had a good relationship with them. Her mother with her being at [facility] is not very involved socially with her daughter or reliable for her daughter per CM. Her relationship with her father is estranged. Education: 12th. grade Occupational: Unemployed. Lives at [facility]. Legal: None Martial: Not Economic: SSDI Supports: Mainly her mother and siblings. Abuse/trauma: Not reported Mental Status Examination Mental Status Examination General Appearance: well groomed, appears stated age, hospital scubs/clothing Build: overweight Demeanor: cooperative, sad, pleasant. she was about to cry when I spoke with her. Eye Contact: good Activity: sad, a little withdrawn, anxious Behavior: cooperative, she said she would let us know if she thought she needed a sitter Speech: short, brief responses. Normal tone and volume Mood: depressed Mood "I just couldn't put all of this together" (talking about the conversation she had with her mother) Affect: constricted, sad, congruent Thought Process: logical/linear, concrete, depressed Thought Content (Delusions): admits to have SI, denies HI, reports Auditory hallucinations, commanding in nature, telling her to hurt herself Thought Content (Other): preoccupied, internal-stimuli Thought Content (Aggressive): none reported Perception (Hallucinations): auditory ( commanding in nature, different voices) Perception (Other): none reported Cognition (Impairment of): unable to assess Cognition(Intelligence Est.): borderline Oriented: Awake, Alert, Oriented times three Insight: poor Judgment: Poor Psychosis: Psychotic Perceptions Diagnoses Schizoaffective disorder borderline personality d/o Assement/Plan Assessment Patient looks very depressed, she got teary eyes when we started talking. she looked anxious too. she said she had a conversation with her mother that didn't go well, although she failed to elaborate. she told me initially that she was not having thoughts about hurting herself but we both agreed that she would tell the staff if she was feeling as if she needed to be on a sitter and she did tell Chana, that she felt that she was going to hurt herself. We started her on a 1 :1, so that she will feel safer. Patient is not angry or agressive, she has not displayed violent behavior at this time. I think she is frail and genuinely sad. Initial Treatment Plan 1. Patient was admitted on a 9.39 status. 2. Complete history was obtained. 3. With patients permission, family will be contacted and database will be expanded. 4. Patients medication regimen will be reviewed and changed accordingly. 5. Patient will be provided with protected environment. 6. Patient will be treated with individual, group, and milieu therapies. 7. Patient will receive supportive psych-education. 8. Discharge planning will commence immediately. 9. Outpatient follow-up treatment will be strongly recommended. 10. The initial treatment plan will focus initially on: * Depression. * Anxiety * Risk for suicide. * Innefective coping 11. resume outpatient meds. Check ANC as pt on Clozaril. ESTIMATED LENGTH OF STAY: 5-7DAYS. TIME SPENT COUNSELING AND COORDINATING INITIAL CARE: 60 minutes. Vital Signs Vital Signs Date Time Temp Pulse Resp B/P (MAP) Pulse Ox O2 Delivery O2 Flow Rate FiO2 04/24/18 13:44 97.5 108 20 142/90 (107) 97 04/24/18 13:28 Room Air Laboratory Data 24H Labs Laboratory Tests 2 04/23/18 19:55: Nucleated Red Blood Cells % (auto) 0.0, Anion Gap 9, Glomerular Filtration Rate > 60.0, Calcium Level 8.7, Aspartate Amino Transf (AST/SGOT) 15, Alanine Aminotransferase (ALT/SGPT) 19, Alkaline Phosphatase 113, Total Bilirubin 0.1L, Direct Bilirubin < 0.1, Total Protein 7.2, Albumin 3.5, Albumin/Globulin Ratio 0.95L, Thyroid Stimulating Hormone (TSH) 3.010, Human Chorionic Gonadotropin, Qual NEGATIVE, Salicylates Level < 1.7L, Urine Amphetamines Screen NEGATIVE, Urine Benzodiazepines Screen NEGATIVE, Urine Opiates Screen NEGATIVE, Urine Methadone Screen NEGATIVE, Acetaminophen Level < 2.0L, Urine Barbiturates Screen NEGATIVE, Urine Phencyclidine Screen NEGATIVE, [place] Level 0.55L, Urine Cocaine Metabolite Screen NEGATIVE, Urine Cannabinoids Screen NEGATIVE, Ethyl Alcohol Level < 0.003 CBC/BMP Laboratory Tests 04/23/18 19:55 Red Blood Count 4.29, Mean Corpuscular Volume 95.8, Mean Corpuscular Hemoglobin 31.0, Mean Corpuscular Hemoglobin Concent 32.4, Red Cell Distribution Width 12.3 Medications Scheduled ( 1.5-30 mg-Mcg) 1 Tab Tab, 1 TAB PO QHS, (Reported) (Airduo Respiclick 113/14 113-14 Mcg/Act) 1 Inh Inh, 1 PUFF INH BID, (Reported) Amantadine HCl (Amantadine HCl) 100 Mg Tab, 100 MG PO TID, (Reported) Benztropine Mesylate (Benztropine Mesylate) 1 Mg Tab, 1 MG PO QHS, (Reported) Clonidine Hydrochloride (Clonidine HCl) 0.1 Mg Tab, 0.1 MG PO TID, (Reported) Clozapine (Clozapine) 25 Mg Tab, 50 MG PO QHS, (Reported) TAKES WITH 300MG DOSE FOR TOTAL OF 350MG Clozapine (Clozapine) 100 Mg Tab, 300 MG PO QHS, (Reported) TAKES WITH 50MG CLOZAPINE FOR TOTAL OF 350MG AT HS Haloperidol (Haloperidol) 10 Mg Tab, 5 MG PO TID, (Reported) Haloperidol (Haloperidol) 10 Mg Tab, 10 MG PO DAILY, (Reported) Lactase (Lactaid) 3,000 Unit Tab, 6,000 UNIT PO ASDIRECTED, (Reported) TAKES 2 TABS ANY TIME PATIENT HAS DAIRY [place] Carbonate ([place] Carbonate ER) 450 Mg Tabcr, 450 MG PO BID, (Reported) Metformin Hydrochloride (Metformin HCl ER) 500 Mg Tab, 1,000 MG PO BID, (Reported) Quetiapine Fumerate (Quetiapine Fumarate) 100 Mg Tab, 150 MG PO BID, (Reported) Sertraline HCl (Sertraline HCl) 100 Mg Tab, 150 MG PO DAILY, (Reported) Topiramate (Topamax) 25 Mg Tab, 25 MG PO BID, (Reported) TAKES AT 0630 AND 1630 Scheduled PRN Albuterol Sulfate (Ventolin Hfa) 108 Mcg/Act Aer, 2 PUFFS INH QID PRN for SHORTNESS OF BREATH, (Reported) Diphenhydramine HCl (Banophen) 50 Mg Cap, 50 MG PO TID PRN for ANXIETY, (Reported) Trazodone HCl (Trazodone Hydrochloride) 50 Mg Tab, 50 MG PO QHS PRN for INSOMNIA , (Reported) Allergies Coded Allergies: Lactose Intolerance (GI) (Unverified Adverse Reaction, Unknown, 11/19/17) JAYNE GUZMAN MD Apr 24, 2018 18:10
[2018-04-24 18:39] LABS: BASO # 0.1 10^3/uL (0.0-0.2); BASO % 0.9 % (0.0-1.0); EOS % 0.2 % (0.0-3.0); MONO # 0.7 10^3/uL (0.0-0.8); MONO % 7.6 % (0.0-5.0); NEUTROPHILS # 5.8 10^3/uL (1.8-7.7); NEUTROPHILS % 59.6 % (36.0-66.0)
--- NOTE | 2018-04-24 20:57 | ECGEPIP ---
Stationary ECG Study [facility] - ED Test Date: 2018-04-24 Pat Name: [facility] Department: Room: - Gender: F Supervisor Intelligence Analyst: af : 1995 Requested By: MILAD Thomas Order Number: [id number] Reading MD: Salina Haider Measurements Intervals [place] Rate: 72 P: 16 PA: 135 QRS: -1 QRSD: 105 T: 8 QT: 403 QTc: 444 Interpretive Statements SINUS RHYTHM POSSIBLE INFERIOR MYOCARDIAL INFARCTION, PROBABLY OLD DECREASED RATE 02/13/18 Electronically Signed On 04-24-2018 20:57:31 EST by Salina Haider
[2018-04-24] MEDS: cloZAPine 25 MG TAB (S0136) PO SCH (21:19)
[2018-04-24] MEDS: QUEtiapine FUMARATE 50 MG TAB PO SCH (21:19)
[2018-04-24] MEDS: AMANTADINE 100 MG CAP PO SCH (21:20)
[2018-04-24] MEDS: LITHIUM CARBONATE 450 MG **CR** TAB PO SCH (21:20)
[2018-04-24] MEDS: BENZTROPINE 1 MG TAB PO SCH (21:20)
[2018-04-24] MEDS: HALOPERIDOL 10 MG TAB PO SCH (21:20)
[2018-04-24] MEDS: cloZAPine 100 MG TAB (S0136) PO SCH (21:20)
[2018-04-24] MEDS: cloNIDine 0.1 MG TAB PO SCH (21:21)
[2018-04-25] MEDS: TOPIRAMATE (TopAMAX) 25 MG TAB PO SCH ×2 (06:33→15:39)
[2018-04-25] MEDS: metFORMIN (GLUCOPHAGE) 1000 MG TABLET PO SCH ×2 (07:44→17:03)
[2018-04-25] MEDS: LITHIUM CARBONATE 450 MG **CR** TAB PO SCH ×2 (08:13→21:21)
[2018-04-25] MEDS: QUEtiapine FUMARATE 50 MG TAB PO SCH ×2 (08:14→21:23)
[2018-04-25] MEDS: cloNIDine 0.1 MG TAB PO SCH ×3 (08:14→21:23)
[2018-04-25] MEDS: HALOPERIDOL 5 MG TAB PO SCH ×3 (08:14→15:13)
[2018-04-25] MEDS: SERTRALINE HCL 50 MG TAB PO SCH (08:14)
[2018-04-25] MEDS: AMANTADINE 100 MG CAP PO SCH ×3 (08:14→21:20)
--- NOTE | 2018-04-25 09:56 | HPEPDOC ---
[facility] Medical History & Physical Date of Admission Apr 24, 2018 History and Physical PCP: [facility] ATTENDING: Dr. Niya Gardner HPI: 22yoF admitted to [facility] for schizoaffective disorder, being medically e xamined today. No acute medical complaints today. She has no verbalizes concerns at this time. Patient states she takes Topamax for mood. Denies any fevers, chills, weakness, fatigue, CLEMENS, CP, SOB, cough, palpitations, abdominal pain, N/V/D or changes in bowel or bladder habits. PMHx: Schizophrenia Schizoaffective disorder Bipolar disorder anxiety depression H/O SI/HI Self-harm, cutting insomnia Obesity-BMI 43.1 IFG Asthma PSHX: [employer] teeth extraction SOCHX: Resides in: [place], lives with TLS. Marital Status: Single Kids: None Employment: Unemployed Tobacco use: Denies ETOH: Denies Illicit Drugs: Denies IV Drug Use: Denies Tattoos done unprofessionally: Denies FAMHX: Mother: Alive, well Father: Alive, well Siblings: 2 sisters Alive, well Children: None Unexpected deaths due to medical reasons: None. ROS: As noted in HPI, otherwise 11pt ROS of systems reviewed and remarkable only for LMP 04/18/18. PE: GEN: 22yoF, appears stated age. Appears unkept. No acute distress. Alert and oriented x 3. Avoids eye contact. HEENT: Normocephalic, atraumatic. Pupils are equal, round, and reactive to light. Extraocular movements are intact. No nystagmus appreciated. Sclera are nonicteric. Conjunctiva without injection. Nose midline. Nasal turbinates without bogginess. EACs both patent BL. TMs both visualized and kwon with good cone of light, no bulging or erythema. No facial asymmetry. Moist mucous membranes. Dentition fair. Pharynx pink and moist, no cobblestoning. Neck supple, trachea midline. No lymphadenopathy or thyromegaly appreciated. CHEST: Regular rate and rhythm, +S1, +S2 LUNGS: Clear to auscultation bilaterally. No wheezes, rales, or rhonchi. Breathing appears symmetric and easy. Patient is speaking in full sentences. No accessory muscle use. ABD: Round, soft, non-tender, non-distended. +Bowel sounds throughout. No rebound or guarding. No costovertebral angle tenderness. EXT: Pulses 2+ bilaterally dorsalis pedis and radial. No lower extremity edema appreciated. SKIN: [place], dry, warm. Capillary refill <2sec. No rashes. Superficial lacerations are noted to the left forearm. NEURO: Alert and oriented x 3. Cranial nerves III-XII are intact. No focal deficits appreciated. EKG: SINUS RHYTHM POSSIBLE INFERIOR MYOCARDIAL INFARCTION, PROBABLY OLD DECREASED RATE 02/13/18 Electronically Signed On 04-24-2018 20:57:31 EST by Salina Haider DD: Salina Haider MD 04/24/18 0400 A&P: 22yoF admitted to [facility] for schizoaffective disorder. 1. Psych. Plan per Psychiatry. EKG on file. 2. IFG. Patient remains on Glucophage XL 1000 mg twice a day Hemoglobin A1c 4.9 05/22. 3. Follow up with PCP on discharge. [facility]. 4. Continue OCP. 5. Obesity. BMI noted to be 43.1. Complicates care. 6. Asthma. Continue Advair 2 puffs BID. Continue albuterol HFA 2 puffs every 4 hours as needed. 7. Staff Member Rena RODRÍGUEZ present throughout exam. Vital Signs Vital Signs Date Time Temp Pulse Resp B/P (MAP) Pulse Ox O2 Delivery O2 Flow Rate FiO2 04/25/18 08:14 140/88 04/24/18 18:00 97.6 108 18 04/24/18 13:44 97 04/24/18 13:28 Room Air Laboratory Data Labs 24H Item Value Date Time White Blood Count 9.6 10^3/uL 04/23/181954 Red Blood Count 4.29 10^6/uL 04/23/181954 Hemoglobin 13.3 g/dl 04/23/181954 Hematocrit 41.1 % 04/23/181954 Mean Corpuscular Volume 95.8 fl 04/23/181954 Mean Corpuscular Hemoglobin 31.0 pg 04/23/181954 Mean Corpuscular Hemoglobin Concent 32.4 g/dl 04/23/181954 Red Cell Distribution Width 12.3 % 04/23/181954 Platelet Count 306 10^3/uL 04/23/181954 Sodium Level 141 MEQ/L 04/23/181954 Potassium Level 4.1 MEQ/L 04/23/181954 Chloride Level 108 MEQ/L H 04/23/181954 Carbon Dioxide Level 24 MEQ/L 04/23/181954 Anion Gap 9 MEQ/L 04/23/181954 Blood Urea Nitrogen 17 MG/DL 04/23/181954 Creatinine 0.76 MG/DL 04/23/181954 Glomerular Filtration Rate > 60.0 04/23/181954 Fasting Glucose 70 MG/DL 04/23/181954 Calcium Level 8.7 MG/DL 04/23/181954 Total Bilirubin 0.1 MG/DL L 04/23/181954 Direct Bilirubin < 0.1 MG/DL 04/23/181954 Alanine Aminotransferase (ALT/SGPT) 19 U/L 04/23/181954 Aspartate Amino Transf (AST/SGOT) 15 U/L 04/23/181954 Alkaline Phosphatase 113 U/L 04/23/181954 Total Protein 7.2 GM/DL 04/23/181954 Albumin 3.5 GM/DL 04/23/181954 Albumin/Globulin Ratio 0.95 L 04/23/181954 Thyroid Stimulating Hormone (TSH) 3.010 uIU/ML 04/23/181954 Human Chorionic Gonadotropin, Qual NEGATIVE 04/23/181954 Salicylates Level < 1.7 MG/DL L 04/23/181954 Urine Opiates Screen NEGATIVE 04/23/181954 Urine Methadone Screen NEGATIVE 04/23/181954 Acetaminophen Level < 2.0 UG/ML L 04/23/181954 Urine Barbiturates Screen NEGATIVE 04/23/181954 Urine Phencyclidine Screen NEGATIVE 04/23/181954 Urine Amphetamines Screen NEGATIVE 04/23/181954 Urine Benzodiazepines Screen NEGATIVE 04/23/181954 [place] Level 0.55 MEQ/L L 04/23/181954 Urine Cocaine Metabolite Screen NEGATIVE 04/23/181954 Urine Cannabinoids Screen NEGATIVE 04/23/181954 Ethyl Alcohol Level < 0.003 % 04/23/181954 Home Medications Scheduled ( 1.5 1.5-30 mg-Mcg) 1 Tab Tab, 1 TAB PO QHS (Airduo Respiclick 113/14 113-14 Mcg/Act) 1 Inh Inh, 1 PUFF INH BID Amantadine HCl (Amantadine HCl) 100 Mg Tab, 100 MG PO TID Benztropine Mesylate (Benztropine Mesylate) 1 Mg Tab, 1 MG PO QHS Clonidine Hydrochloride (Clonidine HCl) 0.1 Mg Tab, 0.1 MG PO TID Clozapine (Clozapine) 25 Mg Tab, 50 MG PO QHS TAKES WITH 300MG DOSE FOR TOTAL OF 350MG Clozapine (Clozapine) 100 Mg Tab, 300 MG PO QHS TAKES WITH 50MG CLOZAPINE FOR TOTAL OF 350MG AT HS Haloperidol (Haloperidol) 10 Mg Tab, 5 MG PO TID Haloperidol (Haloperidol) 10 Mg Tab, 10 MG PO DAILY Lactase (Lactaid) 3,000 Unit Tab, 6,000 UNIT PO ASDIRECTED TAKES 2 TABS ANY TIME PATIENT HAS DAIRY [place] Carbonate ([place] Carbonate ER) 450 Mg Tabcr, 450 MG PO BID Metformin Hydrochloride (Metformin HCl ER) 500 Mg Tab, 1,000 MG PO BID Quetiapine Fumerate (Quetiapine Fumarate) 100 Mg Tab, 150 MG PO BID Sertraline HCl (Sertraline HCl) 100 Mg Tab, 150 MG PO DAILY Topiramate (Topamax) 25 Mg Tab, 25 MG PO BID TAKES AT 0630 AND 1630 Scheduled PRN Albuterol Sulfate (Ventolin Hfa) 108 Mcg/Act Aer, 2 PUFFS INH QID PRN for SHORTNESS OF BREATH Diphenhydramine HCl (Banophen) 50 Mg Cap, 50 MG PO TID PRN for ANXIETY Trazodone HCl (Trazodone Hydrochloride) 50 Mg Tab, 50 MG PO QHS PRN for INSOMNIA Allergies Coded Allergies: Lactose Intolerance (GI) (Unverified Adverse Reaction, Unknown, 11/19/17) Chaya Sanon Apr 25, 2018 09:49
[2018-04-25] MEDS: ADVAIR HFA 115/21MCG INHALER INH SCH ×2 (10:17→21:23)
[2018-04-25] MEDS: ACETAMINOPHEN TAB 650MG DOSE (2X325MG) PO PRN (12:15)
[2018-04-25 18:00] VITALS: BP 135/80
--- NOTE | 2018-04-25 18:52 | MHIPNPDOC ---
[facility] Progress Note Progress Note DATE OF SERVICE: 04/25/18 HISTORY: : Patient is a 22-year-old female, who according to ED report: " Patient arrived with police following suicidal threats at home. Staff from the [facility] contacted police stating that patient was threatening to cut her neck & jump from a bridge into the [place]. Police reported that upon their arrival, patient stated that she was experiencing AH to kill herself by the aforementioned methods, & that she intended to follow those commands. Police reported that she became agitated & insisted that she was not going with them into custody, & that she attempted to flee. She was verbally agitated upon arrival, however calmed down after hangcuffs were removed & police left the [facility]HU. During interview, patient reported the same hx. She stated that she had been in touch with her mother earlier today via telephone, and that their conversation did not go well. She admits that she has been depressed due to her mother's geographical separation from her (mother resides in [place]), & that she has indeed been hearing voices telling her to kill herself. She maintains that she is continuing to experience those AH & that she still feels suicidal. At this time she is unable to say that she would be safe outside of the hospital. Per review of patient's EMR, she has h/o Schizoaffective D/O & has been here under similar circumstances with her previous admissions." VITAL SIGNS: See below. NEW TEST RESULTS: See below CURRENT MEDICATIONS: See below. MENTAL STATUS EXAMINATION: Patient is a 22-year old female, who is alert, cooperative, dressed in hospital clothes. Speech: Is slow, low volume, normal tone spontaneous and sometimes fluent. Language skills are fair. Thought processes including: [place]. Thought content: Depressed thoughts about her relationship with her mother. Description of abnormal or psychotic thoughts: She still reports occasional auditory hallucinations, sometimes they're commanding in nature, sometimes they're not. Denies paranoid delusions, denies suicidal ideation at this time, denies homicidal ideation Judgment: Very poor Insight: Limited Orientation: 3 Recent and remote memory: Short-term memory is limited. Attention span and concentration: Easily distractible. Language: Poverty of language. Fund of knowledge: And little bit below average. Mood: Sad. Affect: Congruent with mood. DIAGNOSES: 1. Schizoaffective disorder bipolar type 2. Mild intellectual disability. 3. Borderline personality disorder. ASSESSMENT: Patient was still in a sitter today but her behavior was pretty good although she said that she didn't feel extremely good today. She still reports anxiety, reports anger and frustration over her life and her limitations. Her biggest stressor is the relationship with her mother and the fact that mom lives in [place]. Patient has continued with the same medications and will be reassessed tomorrow to evaluate if she needs to continue with the sitter or not. MANAGEMENT PLAN: We'll continue with the same treatment plan. TIME SPENT: 15 minutes. Vital Signs Vital Signs Date Time Temp Pulse Resp B/P (MAP) Pulse Ox O2 Delivery O2 Flow Rate FiO2 04/25/18 15:13 137/88 04/24/18 18:00 97.6 108 18 04/24/18 13:44 97 04/24/18 13:28 Room Air Current Medications Current Medications Acetaminophen (Tylenol Tab) 650 mg Q6HP PRN PO HEADACHE or DISCOMFORT Last administered on 04/25/18at 12:15; Start 04/24/18 at 12:00 Al Hydrox/Mg Hydrox/Simethicone (Mylanta) 30 ml Q4HP PRN PO HEARTBURN/INDIGESTION; Start 04/24/18 at 12:00 Albuterol Sulfate (Proventil, Ventolin Hfa) 2 puff QIDP PRN INH SHORTNESS OF BREATH Last administered on 04/24/18at 21:22; Start 04/24/18 at 18:15 Amantadine HCl (Symmetrel) 100 mg TID PO Last administered on 04/25/18at 15:13; Start 04/24/18 at 21:00 Benztropine Mesylate (Cogentin) 1 mg QHS PO Last administered on 04/24/18at 21:20; Start 04/24/18 at 21:00 Clonidine HCl (Catapres) 0.1 mg TID PO Last administered on 04/25/18at 15:13; Start 04/24/18 at 21:00 Clozapine (Clozaril) 50 mg QHS PO Last administered on 04/24/18 21:19; Start 04/24/18 at 21:00 Clozapine (Clozaril) 300 mg QHS PO Last administered on 04/24/18at 21:20; Start 04/24/18 at 21:00 Diphenhydramine HCl (Benadryl) 50 mg TIDP PRN PO ANXIETY; Start 04/24/18 at 18:15 Haloperidol (Haldol) 5 mg TID@0900,1300,1600 PO Last administered on 04/25/18at 15:13; Start 04/25/18 at 09:00 Haloperidol (Haldol) 10 mg QHS PO Last administered on 04/24/18at 21:20; Start 04/24/18 at 21:00 Home Med (Med Rec Complete!) ASDIRECTED XX ; Start 04/24/18 at 13:30; Stop 04/24/18 at 13:30; Status DC [place] Carbonate (Eskalith-Cr) 450 mg BID PO Last administered on 04/25/18 08:13; Start 04/24/18 at 21:00 Magnesium Hydroxide (Milk Of Magnesia) 30 ml DAILYPRN PRN PO CONSTIPATION; Start 04/24/18 at 12:00 Metformin HCl (Glucophage) 1,000 mg BID@18 PO Last administered on 04/25/18at 17:03; Start 04/25/18 at 08:00 Miscellaneous (Unresolved Patient Own Med Order) SEE LABEL COMMENTS DAILY XX ; Start 04/25/18 at 09:00; Stop 04/25/18 at 12:06; Status DC Patient Own Medication (Patient'S Own Med) 1 tablet QHS PO ; Start 04/25/18 at 21:00 Quetiapine Fumarate (SEROquel) 150 mg BID PO Last administered on 04/25/18 08:14; Start 04/24/18 at 21:00 Salmeterol Xinafoate/ Fluticasone (Advair Hfa 115/ 21) 2 puff BID INH Last administered on 04/25/18 10:17; Start 04/25/18 at 09:00 Sertraline HCl (Zoloft) 150 mg QAM PO Last administered on 04/25/18 08:14; Start 04/25/18 at 09:00 Topiramate (TopAMAX) 25 mg BID@0630,1630 PO Last administered on 04/25/18at 15:39; Start 04/25/18 at 06:30 Trazodone HCl (Desyrel) 50 mg QHSP PRN PO INSOMNIA Last administered on 04/24/18at 21:20; Start 04/24/18 at 18:15; Stop 04/25/18 at 12:25; Status DC Trazodone HCl (Desyrel) 150 mg QHSP PRN PO INSOMNIA; Start 04/25/18 at 12:30 Allergies Coded Allergies: Lactose Intolerance (GI) (Unverified Adverse Reaction, Unknown, 11/19/17) JAYNE GUZMAN MD Apr 25, 2018 18:52
[2018-04-25] MEDS: BLISOVI FE PO SCH (21:20)
[2018-04-25] MEDS: HALOPERIDOL 10 MG TAB PO SCH (21:21)
[2018-04-25] MEDS: cloZAPine 25 MG TAB (S0136) PO SCH (21:21)
[2018-04-25] MEDS: cloZAPine 100 MG TAB (S0136) PO SCH (21:23)
[2018-04-25] MEDS: traZODone 50 MG TAB PO PRN (21:23)
[2018-04-25] MEDS: BENZTROPINE 1 MG TAB PO SCH (21:23)
[2018-04-26 06:00] VITALS: BP 118/58
[2018-04-26] MEDS: TOPIRAMATE (TopAMAX) 25 MG TAB PO SCH ×2 (06:49→15:31)
[2018-04-26] MEDS: metFORMIN (GLUCOPHAGE) 1000 MG TABLET PO SCH ×2 (07:49→17:20)
[2018-04-26] MEDS: ADVAIR HFA 115/21MCG INHALER INH SCH ×2 (08:44→21:41)
[2018-04-26] MEDS: SERTRALINE HCL 50 MG TAB PO SCH (08:45)
[2018-04-26] MEDS: LITHIUM CARBONATE 450 MG **CR** TAB PO SCH ×2 (08:45→21:38)
[2018-04-26] MEDS: cloNIDine 0.1 MG TAB PO SCH ×3 (08:45→21:38)
[2018-04-26] MEDS: AMANTADINE 100 MG CAP PO SCH ×3 (08:46→21:39)
[2018-04-26] MEDS: QUEtiapine FUMARATE 50 MG TAB PO SCH ×2 (08:46→21:39)
[2018-04-26] MEDS: HALOPERIDOL 5 MG TAB PO SCH ×3 (08:46→15:31)
[2018-04-26] MEDS: ACETAMINOPHEN TAB 650MG DOSE (2X325MG) PO PRN (12:19)
[2018-04-26 18:00] VITALS: BP 139/83
--- NOTE | 2018-04-26 20:53 | MHIPNPDOC ---
[facility] Progress Note Progress Note DATE OF SERVICE: 04/26/18 HISTORY: : Patient is a 22-year-old female, who according to ED report: " Patient arrived with police following suicidal threats at home. Staff from the [facility] contacted police stating that patient was threatening to cut her neck & jump from a bridge into the [place]. Police reported that upon their arrival, patient stated that she was experiencing AH to kill herself by the aforementioned methods, & that she intended to follow those commands. Police reported that she became agitated & insisted that she was not going with them into custody, & that she attempted to flee. She was verbally agitated upon arrival, however calmed down after hangcuffs were removed & police left the BHU. During interview, patient reported the same hx. She stated that she had been in touch with her mother earlier today via telephone, and that their conversation did not go well. She admits that she has been depressed due to her mother's geographical separation from her (mother resides in [place]), & that she has indeed been hearing voices telling her to kill herself. She maintains that she is continuing to experience those AH & that she still feels suicidal. At this time she is unable to say that she would be safe outside of the hospital. Per review of patient's EMR, she has h/o Schizoaffective D/O & has been here under similar circumstances with her previous admissions." VITAL SIGNS: See below. NEW TEST RESULTS: See below CURRENT MEDICATIONS: See below. MENTAL STATUS EXAMINATION: Patient is a 22-year old female, who is alert, cooperative, dressed in hospital clothes. Speech: Is slow, low volume, normal tone spontaneous and sometimes fluent. Language skills are fair. Thought processes including: [place]. Thought content: Depressed thoughts about her relationship with her mother. Description of abnormal or psychotic thoughts: Denies AV hallucinations. Denies paranoid delusions, denies suicidal ideation at this time, denies homicidal ideation Judgment: Very poor Insight: Limited Orientation: 3 Recent and remote memory: Short-term memory is limited. Attention span and concentration: Easily distractible. Language: Poverty of language. Fund of knowledge: And little bit below average. Mood: Brighter Affect: Congruent with mood. DIAGNOSES: 1. Schizoaffective disorder bipolar type 2. Mild intellectual disability. 3. Borderline personality disorder. ASSESSMENT: sitter was discontinued, she has been in behavioral control, she wants to have her clothes and tw told her tomorrow she might have them. If she continues to be stable, we could discharge her tomorrow. MANAGEMENT PLAN: We'll continue with the same treatment plan. TIME SPENT: 15 minutes. Vital Signs Vital Signs Date Time Temp Pulse Resp B/P (MAP) Pulse Ox O2 Delivery O2 Flow Rate FiO2 04/26/18 18:00 98.2 100 18 139/83 (101) 04/24/18 13:44 97 04/24/18 13:28 Room Air Current Medications Current Medications Acetaminophen (Tylenol Tab) 650 mg Q6HP PRN PO HEADACHE or DISCOMFORT Last administered on 04/26/18 12:19; Start 04/24/18 at 12:00 Al Hydrox/Mg Hydrox/Simethicone (Mylanta) 30 ml Q4HP PRN PO HEARTBURN/INDIGESTION; Start 04/24/18 at 12:00 Albuterol Sulfate (Proventil, Ventolin Hfa) 2 puff QIDP PRN INH SHORTNESS OF BREATH Last administered on 04/24/18 21:22; Start 04/24/18 at 18:15 Amantadine HCl (Symmetrel) 100 mg TID PO Last administered on 04/26/18 15:31; Start 04/24/18 at 21:00 Benztropine Mesylate (Cogentin) 1 mg QHS PO Last administered on 04/25/18 21:23; Start 04/24/18 at 21:00 Clonidine HCl (Catapres) 0.1 mg TID PO Last administered on 04/26/18 15:31; Start 04/24/18 at 21:00 Clozapine (Clozaril) 50 mg QHS PO Last administered on 04/25/18 21:21; Start 04/24/18 at 21:00 Clozapine (Clozaril) 300 mg QHS PO Last administered on 04/25/18 21:23; Start 04/24/18 at 21:00 Diphenhydramine HCl (Benadryl) 50 mg TIDP PRN PO ANXIETY; Start 04/24/18 at 18:15 Haloperidol (Haldol) 5 mg TID@0900,1300,1600 PO Last administered on 04/26/18 15:31; Start 04/25/18 at 09:00 Haloperidol (Haldol) 10 mg QHS PO Last administered on 04/25/18 21:21; Start 04/24/18 at 21:00 Home Med (Med Rec Complete!) ASDIRECTED XX ; Start 04/24/18 at 13:30; Stop 04/24/18 at 13:30; Status DC [place] Carbonate (Eskalith-Cr) 450 mg BID PO Last administered on 04/26/18at 08:45; Start 04/24/18 at 21:00 Magnesium Hydroxide (Milk Of Magnesia) 30 ml DAILYPRN PRN PO CONSTIPATION; Start 04/24/18 at 12:00 Metformin HCl (Glucophage) 1,000 mg BID@,18 PO Last administered on 04/26/18 17:20; Start 04/25/18 at 08:00 Miscellaneous (Unresolved Patient Own Med Order) SEE LABEL COMMENTS DAILY XX ; Start 04/25/18 at 09:00; Stop 04/25/18 at 12:06; Status DC Patient Own Medication (Patient'S Own Med) 1 tablet QHS PO Last administered on 04/25/18 21:20; Start 04/25/18 at 21:00 Quetiapine Fumarate (SEROquel) 150 mg BID PO Last administered on 04/26/18 08:46; Start 04/24/18 at 21:00 Salmeterol Xinafoate/ Fluticasone (Advair Hfa 115/ 21) 2 puff BID INH Last administered on 04/26/18 08:44; Start 04/25/18 at 09:00 Sertraline HCl (Zoloft) 150 mg QAM PO Last administered on 04/26/18 08:45; Start 04/25/18 at 09:00 Topiramate (TopAMAX) 25 mg BID@0630,1630 PO Last administered on 04/26/18 15:31; Start 04/25/18 at 06:30 Trazodone HCl (Desyrel) 50 mg QHSP PRN PO INSOMNIA Last administered on 04/24/18 21:20; Start 04/24/18 at 18:15; Stop 04/25/18 at 12:25; Status DC Trazodone HCl (Desyrel) 150 mg QHSP PRN PO INSOMNIA Last administered on 04/25/18at 21:23; Start 04/25/18 at 12:30 Allergies Coded Allergies: Lactose Intolerance (GI) (Unverified Adverse Reaction, Unknown, 11/19/17) JAYNE GUZMAN MD Apr 26, 2018 20:53
[2018-04-26] MEDS: cloZAPine 25 MG TAB (S0136) PO SCH (21:37)
[2018-04-26] MEDS: BLISOVI FE PO SCH (21:37)
[2018-04-26] MEDS: BENZTROPINE 1 MG TAB PO SCH (21:38)
[2018-04-26] MEDS: traZODone 50 MG TAB PO PRN (21:38)
[2018-04-26] MEDS: HALOPERIDOL 10 MG TAB PO SCH (21:39)
[2018-04-26] MEDS: cloZAPine 100 MG TAB (S0136) PO SCH (21:39)
[2018-04-27] MEDS: TOPIRAMATE (TopAMAX) 25 MG TAB PO SCH ×2 (06:03→15:36)
[2018-04-27 06:44] VITALS: BP 110/60
[2018-04-27] MEDS: metFORMIN (GLUCOPHAGE) 1000 MG TABLET PO SCH ×2 (08:29→17:22)
[2018-04-27] MEDS: ADVAIR HFA 115/21MCG INHALER INH SCH ×2 (08:29→21:35)
[2018-04-27] MEDS: LITHIUM CARBONATE 450 MG **CR** TAB PO SCH ×2 (08:30→21:17)
[2018-04-27] MEDS: HALOPERIDOL 5 MG TAB PO SCH ×3 (08:30→15:20)
[2018-04-27] MEDS: cloNIDine 0.1 MG TAB PO SCH ×3 (08:32→21:17)
[2018-04-27] MEDS: AMANTADINE 100 MG CAP PO SCH ×3 (08:32→21:17)
[2018-04-27] MEDS: QUEtiapine FUMARATE 50 MG TAB PO SCH ×2 (08:32→21:20)
[2018-04-27] MEDS: SERTRALINE HCL 50 MG TAB PO SCH (08:32)
[2018-04-27 18:00] VITALS: BP 142/94
--- NOTE | 2018-04-27 18:02 | MHIPNPDOC ---
[facility] Progress Note Progress Note DATE OF SERVICE: 04/27/18 HISTORY: : Patient is a 22-year-old female, who according to ED report: " Patient arrived with police following suicidal threats at home. Staff from the [facility] contacted police stating that patient was threatening to cut her neck & jump from a bridge into the [place]. Police reported that upon their arrival, patient stated that she was experiencing AH to kill herself by the aforementioned methods, & that she intended to follow those commands. Police reported that she became agitated & insisted that she was not going with them into custody, & that she attempted to flee. She was verbally agitated upon arrival, however calmed down after hangcuffs were removed & police left the BHU. During interview, patient reported the same hx. She stated that she had been in touch with her mother earlier today via telephone, and that their conversation did not go well. She admits that she has been depressed due to her mother's geographical separation from her (mother resides in [place]), & that she has indeed been hearing voices telling her to kill herself. She maintains that she is continuing to experience those AH & that she still feels suicidal. At this time she is unable to say that she would be safe outside of the hospital. Per review of patient's EMR, she has h/o Schizoaffective D/O & has been here under similar circumstances with her previous admissions." VITAL SIGNS: See below. NEW TEST RESULTS: See below CURRENT MEDICATIONS: See below. MENTAL STATUS EXAMINATION: Patient is a 22-year old female, who is alert, cooperative, dressed in hospital clothes. Speech: Is slow, low volume, normal tone spontaneous and sometimes fluent. Language skills are fair. Thought processes including: [place]. Thought content: Depressed thoughts about her relationship with her mother. Description of abnormal or psychotic thoughts: Denies AV hallucinations. Denies paranoid delusions, denies suicidal ideation at this time, denies homicidal ideation Judgment: Very poor Insight: Limited Orientation: 3 Recent and remote memory: Short-term memory is limited. Attention span and concentration: Easily distractible. Language: Poverty of language. Fund of knowledge: And little bit below average. Mood: Brighter Affect: Congruent with mood. DIAGNOSES: 1. Schizoaffective disorder bipolar type 2. Mild intellectual disability. 3. Borderline personality disorder. ASSESSMENT: Patient has improved, she is in behavioral control, she has been pleasant and cooperative. She will be discharged tomorrow. MANAGEMENT PLAN: We'll continue with the same treatment plan. TIME SPENT: 15 minutes. Vital Signs Vital Signs Date Time Temp Pulse Resp B/P (MAP) Pulse Ox O2 Delivery O2 Flow Rate FiO2 04/27/18 15:20 142/94 04/27/18 06:44 97.1 79 14 04/24/18 13:44 97 04/24/18 13:28 Room Air Current Medications Current Medications Acetaminophen (Tylenol Tab) 650 mg Q6HP PRN PO HEADACHE or DISCOMFORT Last administered on 04/26/18 12:19; Start 04/24/18 at 12:00 Al Hydrox/Mg Hydrox/Simethicone (Mylanta) 30 ml Q4HP PRN PO HEARTBURN/INDIGESTION; Start 04/24/18 at 12:00 Albuterol Sulfate (Proventil, Ventolin Hfa) 2 puff QIDP PRN INH SHORTNESS OF BREATH Last administered on 04/24/18 21:22; Start 04/24/18 at 18:15 Amantadine HCl (Symmetrel) 100 mg TID PO Last administered on 04/27/18 15:20; Start 04/24/18 at 21:00 Benztropine Mesylate (Cogentin) 1 mg QHS PO Last administered on 04/26/18 21:38; Start 04/24/18 at 21:00 Clonidine HCl (Catapres) 0.1 mg TID PO Last administered on 04/27/18at 15:20; Start 04/24/18 at 21:00 Clozapine (Clozaril) 50 mg QHS PO Last administered on 04/26/18at 21:37; Start 04/24/18 at 21:00 Clozapine (Clozaril) 300 mg QHS PO Last administered on 04/26/18 21:39; Start 04/24/18 at 21:00 Diphenhydramine HCl (Benadryl) 50 mg TIDP PRN PO ANXIETY; Start 04/24/18 at 18:15 Haloperidol (Haldol) 5 mg TID@0900,1300,1600 PO Last administered on 04/27/18at 15:20; Start 04/25/18 at 09:00 Haloperidol (Haldol) 10 mg QHS PO Last administered on 04/26/18 21:39; Start 04/24/18 at 21:00 Home Med (Med Rec Complete!) ASDIRECTED XX ; Start 04/24/18 at 13:30; Stop 04/24/18 at 13:30; Status DC [place] Carbonate (Eskalith-Cr) 450 mg BID PO Last administered on 04/27/18at 08:30; Start 04/24/18 at 21:00 Magnesium Hydroxide (Milk Of Magnesia) 30 ml DAILYPRN PRN PO CONSTIPATION; Start 04/24/18 at 12:00 Metformin HCl (Glucophage) 1,000 mg BID@,18 PO Last administered on 04/27/18 17:22; Start 04/25/18 at 08:00 Miscellaneous (Unresolved Patient Own Med Order) SEE LABEL COMMENTS DAILY XX ; Start 04/25/18 at 09:00; Stop 04/25/18 at 12:06; Status DC Patient Own Medication (Patient'S Own Med) 1 tablet QHS PO Last administered on 04/26/18at 21:37; Start 04/25/18 at 21:00 Quetiapine Fumarate (SEROquel) 150 mg BID PO Last administered on 04/27/18 08:32; Start 04/24/18 at 21:00 Salmeterol Xinafoate/ Fluticasone (Advair Hfa 115/ 21) 2 puff BID INH Last administered on 04/27/18 08:29; Start 04/25/18 at 09:00 Sertraline HCl (Zoloft) 150 mg QAM PO Last administered on 04/27/18at 08:32; Start 04/25/18 at 09:00 Topiramate (TopAMAX) 25 mg BID@0630,1630 PO Last administered on 04/27/18 15:36; Start 04/25/18 at 06:30 Trazodone HCl (Desyrel) 50 mg QHSP PRN PO INSOMNIA Last administered on 04/24/18 21:20; Start 04/24/18 at 18:15; Stop 04/25/18 at 12:25; Status DC Trazodone HCl (Desyrel) 150 mg QHSP PRN PO INSOMNIA Last administered on 04/26/18at 21:38; Start 04/25/18 at 12:30 Allergies Coded Allergies: Lactose Intolerance (GI) (Unverified Adverse Reaction, Unknown, 11/19/17) AJYNE GUZMAN MD Apr 27, 2018 18:02
[2018-04-27] MEDS: cloZAPine 25 MG TAB (S0136) PO SCH (21:16)
[2018-04-27] MEDS: BENZTROPINE 1 MG TAB PO SCH (21:17)
[2018-04-27] MEDS: cloZAPine 100 MG TAB (S0136) PO SCH (21:17)
[2018-04-27] MEDS: HALOPERIDOL 10 MG TAB PO SCH (21:17)
[2018-04-27] MEDS: traZODone 50 MG TAB PO PRN (21:17)
[2018-04-27] MEDS: BLISOVI FE PO SCH (21:23)
[2018-04-27] MEDS ORDERED: CLOZ25TA3 PO (22:04)
[2018-04-27] MEDS ORDERED: CLON-412 PO (22:04)
[2018-04-27] MEDS ORDERED: LITH45TASA PO (22:04)
[2018-04-27] MEDS ORDERED: DIPH50CA29 PO (22:04)
[2018-04-27] MEDS ORDERED: BENZ-52 PO (22:04)
[2018-04-27] MEDS ORDERED: CLOZ100T2 PO (22:04)
[2018-04-27] MEDS ORDERED: QUET1TAB8 PO (22:04)
[2018-04-27] MEDS ORDERED: SERT-138 PO (22:04)
[2018-04-27] MEDS ORDERED: TRAZ-186 PO (22:04)
[2018-04-27] MEDS ORDERED: HALO10TA2 PO (22:04)
[2018-04-27] MEDS ORDERED: METF-699 PO (22:04)
[2018-04-27] MEDS ORDERED: TOPA1TAB PO (22:04)
[2018-04-28] MEDS: TOPIRAMATE (TopAMAX) 25 MG TAB PO SCH (06:11)
[2018-04-28 06:48] VITALS: BP 129/75
[2018-04-28] MEDS: AMANTADINE 100 MG CAP PO SCH (08:10)
[2018-04-28 08:11] VITALS: BP 120/82
[2018-04-28] MEDS: cloNIDine 0.1 MG TAB PO SCH (08:11)
[2018-04-28] MEDS: SERTRALINE HCL 50 MG TAB PO SCH (08:11)
[2018-04-28] MEDS: LITHIUM CARBONATE 450 MG **CR** TAB PO SCH (08:12)
[2018-04-28] MEDS: HALOPERIDOL 5 MG TAB PO SCH (08:12)
[2018-04-28] MEDS: metFORMIN (GLUCOPHAGE) 1000 MG TABLET PO SCH (08:12)
[2018-04-28] MEDS: QUEtiapine FUMARATE 50 MG TAB PO SCH (08:13)
[2018-04-28] MEDS: ADVAIR HFA 115/21MCG INHALER INH SCH (08:13)
--- NOTE | 2018-04-30 18:45 | MHDSPDOC ---
[facility] Discharge Summary Discharge Summary DATE OF ADMISSION: Apr 24, 2018 at 11:56 DATE OF DISCHARGE: Apr 28, 2018 at 10:50 DISCHARGE DIAGNOSES: 1. Schizoaffective disorder bipolar type 2. Mild intellectual disability. 3. Borderline personality disorder. REASON FOR ADMISSION: CHIEF COMPLAINT: Suicidal thoughts after phone conversation with mother that didn't go well HISTORY OF PRESENT ILLNESS: Patient is a 22-year-old female, who according to ED report: " Patient arrived with police following suicidal threats at home. Staff from the [facility] contacted police stating that patient was threatening to cut her neck & jump from a bridge into the [place]. Police reported that upon their arrival, patient stated that she was experiencing AH to kill herself by the aforementioned methods, & that she intended to follow those commands. Police reported that she became agitated & insisted that she was not going with them into custody, & that she attempted to flee. She was verbally agitated upon arrival, however calmed down after hangcuffs were removed & police left the BHU. During interview, patient reported the same hx. She stated that she had been in touch with her mother earlier today via telephone, and that their conversation did not go well. She admits that she has been depressed due to her mother's geographical separation from her (mother resides in [place]), & that she has indeed been hearing voices telling her to kill herself. She maintains that she is continuing to experience those AH & that she still feels suicidal. At this time she is unable to say that she would be safe outside of the hospital. Per review of patient's EMR, she has h/o Schizoaffective D/O & has been here under similar circumstances with her previous admissions." CONSULTANTS INVOLVED: None. TREATMENT AND PROGRESS ON THE UNIT : The patient is well known to the [facility] but this time, Marisol was brought in for having expressed suicidal threats at [facility] and this motivated [facility] staff calling the police. The police reported that she told them she was experiencing auditory hallucinations that were commanding in nature and those were ordering her to jump into the [place] or cutting her neck. Apparently she became agitated when the Police arrived and she attempted to flee but was able to calm when handcuffs were removed in the BHU. During her stay at [facility], she was cooperative and reported that she felt unsafe, that she needed a sitter because she felt like killing herself. A sitter was assigned to her but was discontinued some days later because she said she felt safe, she was able to CFS. She was never coded during this stay, she remained being cooperative, attended some groups, mingled with other patients and staff. Before the patient was admitted she had a telephone conversation with her mother, while she was at [facility]. At a certain point during that conversation, the patient became upset and shortly after, she started verbalizing suicidal thoughts. Much of her problems are secondary to the separration she has sufferend from her mother, she has a diagnosis of BPD and separations are very hard for patients with this diagnosis. When she came to [facility], she said she was very upset and had come because she was still trying to pull herself up. Compared to other hospitalizations, she was never coded this time. HOSPITAL COURSE: As above DISCHARGE ASSESSMENT: Patient was not homicidal, not suicidal and not psychotic at the time of her discharge MENTAL STATUS EXAMINATION ON DISCHARGE: Patient is a 22-year old female, who is alert, cooperative, dressed in hospital clothes. Speech: Is slow, low volume, normal tone spontaneous and sometimes fluent. Language skills are fair. Thought processes including: [place]. Thought content: Depressed thoughts about her relationship with her mother but s he denies SI, HI, paranoid thoughts, grandiose delusions. Description of abnormal or psychotic thoughts: Denies AV hallucinations. Denies paranoid delusions, denies suicidal ideation at this time, denies homicidal ideation Judgment: improved Insight: Limited Orientation: 3 Recent and remote memory: Short-term memory is limited. Attention span and concentration: Easily distractible. Language: Poverty of language. Fund of knowledge: And little bit below average. Mood: Brighter Affect: Congruent with mood. DIAGNOSES: 1. Schizoaffective disorder bipolar type 2. Mild intellectual disability. 3. Borderline personality disorder. MEDICATIONS ON DISCHARGE: Scheduled ( 1.5-30 mg-Mcg) 1 Tab Tab, 1 TAB PO QHS, (Reported) (Airduo Respiclick 113/14 113-14 Mcg/Act) 1 Inh Inh, 1 PUFF INH BID, (Reported) Amantadine HCl (Amantadine HCl) 100 Mg Tab, 100 MG PO TID, (Reported) Benztropine Mesylate (Benztropine Mesylate) 1 Mg Tab, 1 MG PO QHS for EPS, #7 Clonidine Hydrochloride (Clonidine HCl) 0.1 Mg Tab, 0.1 MG PO TID for MOOD, #21 Clozapine (Clozapine) 25 Mg Tab, 50 MG PO QHS for PSYCHOSIS, #14 TAKES WITH 300MG DOSE FOR TOTAL OF 350MG Clozapine (Clozapine) 100 Mg Tab, 300 MG PO QHS for psychosis, #21 TAKES WITH 50MG CLOZAPINE FOR TOTAL OF 350MG AT HS Haloperidol (Haloperidol) 10 Mg Tab, 5 MG PO TID for PSYCHOSIS, #21 Lactase (Lactaid) 3,000 Unit Tab, 6,000 UNIT PO ASDIRECTED, (Reported) TAKES 2 TABS ANY TIME PATIENT HAS DAIRY [place] Carbonate ([place] Carbonate ER) 450 Mg Tabcr, 450 MG PO BID for mood, #14 Metformin Hydrochloride (Metformin HCl ER) 500 Mg Tab, 1,000 MG PO BID for diabetes, #28 Quetiapine Fumerate (Quetiapine Fumarate) 100 Mg Tab, 150 MG PO BID for mood, #21 Sertraline HCl (Sertraline HCl) 100 Mg Tab, 150 MG PO DAILY for depression, #11 Topiramate (Topamax) 25 Mg Tab, 25 MG PO BID for mood/migraines, #14 TAKES AT 0630 AND 1630 Scheduled PRN Albuterol Sulfate (Ventolin Hfa) 108 Mcg/Act Aer, 2 PUFFS INH QID PRN for SHORTNESS OF BREATH, (Reported) Diphenhydramine HCl (Banophen) 50 Mg Cap, 50 MG PO TID PRN for ANXIETY, #21 Trazodone HCl (Trazodone Hydrochloride) 50 Mg Tab, 50 MG PO QHS PRN for INSOMNIA, #7 PLAN/FOLLOWUP ARRANGEMENTS: Follow Up Care Education Label * Mental Health Appt 1 * [facility] * Established With This Provider Yes * Therapist NARDA * Date May 01, 2018 * Time 13:00 * Follow Up Care Education Label * Mental Health Appt 2 * [facility] * Established With This Provider No * Therapist KEO * Date May 22, 2018 * Time 13:00 * Follow Up Care Education Label * Medical * Medical Follow Up [facility] * Additional information Paperwork faxed to provider @ [phone]. Awaiting phone call back to receive appointment day/time. Left voicemail for Sadie (Triage Nurse) @[phone]. Attempted to contact Sadie again @[phone]. There was no answer. It went to voicemail. The amount of time spent in the coordination of care for this patient was approximately 30 minutes. Vital Signs/I&Os Vital Signs Date Time Temp Pulse Resp B/P (MAP) Pulse Ox O2 Delivery O2 Flow Rate FiO2 04/28/18 08:11 120/82 04/28/18 06:48 97.1 79 20 04/24/18 13:44 97 04/24/18 13:28 Room Air Medications Scheduled (.08/03 1.5-30 mg-Mcg) 1 Tab Tab, 1 TAB PO QHS, (Reported) (Airduo Respiclick 113 113-14 Mcg/Act) 1 Inh Inh, 1 PUFF INH BID, (Reported) Amantadine HCl (Amantadine HCl) 100 Mg Tab, 100 MG PO TID, (Reported) Benztropine Mesylate (Benztropine Mesylate) 1 Mg Tab, 1 MG PO QHS for EPS, #7 Clonidine Hydrochloride (Clonidine HCl) 0.1 Mg Tab, 0.1 MG PO TID for MOOD, #21 Clozapine (Clozapine) 25 Mg Tab, 50 MG PO QHS for PSYCHOSIS, #14 TAKES WITH 300MG DOSE FOR TOTAL OF 350MG Clozapine (Clozapine) 100 Mg Tab, 300 MG PO QHS for psychosis, #21 TAKES WITH 50MG CLOZAPINE FOR TOTAL OF 350MG AT HS Haloperidol (Haloperidol) 10 Mg Tab, 5 MG PO TID for PSYCHOSIS, #21 Lactase (Lactaid) 3,000 Unit Tab, 6,000 UNIT PO ASDIRECTED, (Reported) TAKES 2 TABS ANY TIME PATIENT HAS DAIRY [place] Carbonate ([place] Carbonate ER) 450 Mg Tabcr, 450 MG PO BID for mood, #14 Metformin Hydrochloride (Metformin HCl ER) 500 Mg Tab, 1,000 MG PO BID for diabetes, #28 Quetiapine Fumerate (Quetiapine Fumarate) 100 Mg Tab, 150 MG PO BID for mood, #21 Sertraline HCl (Sertraline HCl) 100 Mg Tab, 150 MG PO DAILY for depression, #11 Topiramate (Topamax) 25 Mg Tab, 25 MG PO BID for mood/migraines, #14 TAKES AT 0630 AND 1630 Scheduled PRN Albuterol Sulfate (Ventolin Hfa) 108 Mcg/Act Aer, 2 PUFFS INH QID PRN for SHOR TNESS OF BREATH, (Reported) Diphenhydramine HCl (Banophen) 50 Mg Cap, 50 MG PO TID PRN for ANXIETY, #21 Trazodone HCl (Trazodone Hydrochloride) 50 Mg Tab, 50 MG PO QHS PRN for INSOMNIA, #7 Allergies Coded Allergies: Lactose Intolerance (GI) (Unverified Adverse Reaction, Unknown, 11/19/17) JAYNE GUZMAN MD Apr 30, 2018 18:42
== END 2018-04-28 10:50 | disposition home or self-care (01) | DRG 750 ==
LOC: M ED 19:10 → M ED INP 04-24 11:56 → M PSY 04-24 13:45
PROVIDERS: ADMIT Psychiatry & Neurology Psychiatry; ATTEND Psychiatry & Neurology Psychiatry
DX: F25.0 Schizoaffective disorder, bipolar type (principal); Z68.41 Body mass index [BMI] 40.0-44.9, adult; F70 Mild intellectual disabilities; E73.9 Lactose intolerance, unspecified; F60.3 Borderline personality disorder; R73.01 Impaired fasting glucose; E66.9 Obesity, unspecified; J45.909 Unspecified asthma, uncomplicated; Z79.84 Long term (current) use of oral hypoglycemic drugs; Z79.899 Other long term (current) drug therapy

== ENCOUNTER → 2018-05-04 | Outpatient (CLI) | payer OTHER, MEDICAID ==
[~2018-05-04] MED LIST changes: +CLOZ25TA3 PO
== END ==
LOC: M LAB 07:57
PROVIDERS: ATTEND Internal Medicine Endocrinology, Diabetes & Metabolism
DX: E04.0 Nontoxic diffuse goiter (principal)

== ENCOUNTER → 2018-06-07 | Outpatient (CLI) | payer OTHER, MEDICAID ==
[~2018-06-07] MED LIST changes: -ARIP10TAB PO; +ARIP1TAB PO; +HALO10TA20 PO; -HALO1TAB29 PO; +SERO1TAB PO; +SERT-141 PO; -SERT50TA PO
--- NOTE | 2018-06-07 10:41 | ECGEPIP ---
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
== END ==
LOC: M EKG 09:56
PROVIDERS: ATTEND Nurse Practitioner Psychiatric/Mental Health
DX: Z02.89 Encounter for other administrative examinations (principal)

== ENCOUNTER 2018-06-13 18:12 | Emergency (ER) | payer MEDICAID, OTHER ==
[~2018-06-13] VITALS: Ht 152.4 cm; Wt 110.5 kg
[~2018-06-13 18:12] MED LIST changes: -SERO1TAB PO
[2018-06-13] MEDS ORDERED: TOPA1TAB PO (18:32)
[2018-06-13] MEDS ORDERED: CLONI1TA PO (18:32)
[2018-06-13] MEDS ORDERED: SERO1TAB PO (18:32)
[2018-06-13 18:57] LABS: HEMATOCRIT 39.6 % (36.0-47.0); HEMOGLOBIN 12.8 g/dl (12.0-15.5); MEAN CORPUSCULAR HEMOGLOBIN 30.8 pg (27.0-33.0); MEAN CORPUSCULAR HGB CONC 32.3 g/dl (32.0-36.5); MEAN CORPUSCULAR VOLUME 95.4 fl (80.0-96.0); PLATELET COUNT, AUTOMATED 283 10^3/uL (150-450); RED BLOOD COUNT 4.15 10^6/uL (4.00-5.40); WHITE BLOOD COUNT 10.5 10^3/uL (4.0-10.0)
[2018-06-13 19:16] LABS: HCG, SERUM QUALITATIVE NEGATIVE (NEGATIVE)
[2018-06-13 19:26] LABS: ACETAMINOPHEN LEVEL < 2.0 UG/ML (10.0-30.0); ALBUMIN 3.8 GM/DL (3.2-5.2); ALT/SGPT 19 U/L (12-78); BILIRUBIN,DIRECT < 0.1 MG/DL (0.0-0.2); BILIRUBIN,TOTAL 0.3 MG/DL (0.2-1.0); BLOOD UREA NITROGEN 8 MG/DL (7-18); CALCIUM LEVEL 8.4 MG/DL (8.5-10.1); CARBON DIOXIDE LEVEL 23 MEQ/L (21-32); CHLORIDE LEVEL 108 MEQ/L (98-107); CREATININE FOR GFR 1.06 MG/DL (0.55-1.30); ETHYL ALCOHOL (ETHANOL) < 0.003 % (0.000-0.010); GLOMERULAR FILTRATION RATE > 60.0 (>60); GLUCOSE, FASTING 104 MG/DL (70-100); POTASSIUM SERUM 3.8 MEQ/L (3.5-5.1); SALICYLATE LEVEL < 1.7 MG/DL (5.0-30.0); SODIUM LEVEL 139 MEQ/L (136-145); TOTAL PROTEIN 7.4 GM/DL (6.4-8.2)
[2018-06-13] MEDS ORDERED: ACETAMINOPHEN TAB 650MG DOSE (2X325MG) PO ONE (19:30)
[2018-06-13] MEDS ORDERED: ACETAMINOPHEN 325 MG TAB As Ordered ONE (19:31)
[2018-06-13 20:19] LABS: AMPHETAMINES LEVEL URINE NEGATIVE (NEGATIVE); BARBITURATES URINE NEGATIVE (NEGATIVE); BENZODIAZEPINES URINE NEGATIVE (NEGATIVE); CANNABINOIDS URINE NEGATIVE (NEGATIVE); COCAINE METABOLITE URINE NEGATIVE (NEGATIVE); METHADONE URINE NEGATIVE (NEGATIVE); OPIATES URINE NEGATIVE (NEGATIVE); PHENCYCLIDINE URINE NEGATIVE (NEGATIVE)
[2018-06-13 21:43] VITALS: BP 138/71
== END 2018-06-13 21:44 | disposition home or self-care (01) ==
LOC: M ED 18:12
DX: F32.9 Major depressive disorder, single episode, unspecified (principal); F20.9 Schizophrenia, unspecified; F31.9 Bipolar disorder, unspecified; E73.9 Lactose intolerance, unspecified; Z79.899 Other long term (current) drug therapy
CPT/HCPCS: 80048; 80076; 80307; 84443; 84703; 85027; 99284; G0480

== ENCOUNTER 2018-06-14 23:51 | Emergency (ER) | payer MEDICAID, OTHER ==
[~2018-06-14] VITALS: Ht 157.5 cm; Wt 125.0 kg
[~2018-06-14 23:51] MED LIST changes: +SERO1TAB PO
[2018-06-15] MEDS ORDERED: diphenhydrAMINE INJ 50MG/ML VIAL (J1200) IM ONE
[2018-06-15] MEDS ORDERED: HALOPERIDOL 5 MG/ML VIAL (J1630) IM ONE
[2018-06-15 00:31] LABS: HEMOGLOBIN 11.6 g/dl (12.0-15.5); MEAN CORPUSCULAR HEMOGLOBIN 30.7 pg (27.0-33.0); MEAN CORPUSCULAR HGB CONC 31.4 g/dl (32.0-36.5); MEAN CORPUSCULAR VOLUME 97.9 fl (80.0-96.0); PLATELET COUNT, AUTOMATED 252 10^3/uL (150-450); RED BLOOD COUNT 3.78 10^6/uL (4.00-5.40); WHITE BLOOD COUNT 7.8 10^3/uL (4.0-10.0)
[2018-06-15 00:48] LABS: HCG, SERUM QUALITATIVE NEGATIVE (NEGATIVE)
[2018-06-15 01:08] LABS: ACETAMINOPHEN LEVEL < 2.0 UG/ML (10.0-30.0); ALBUMIN 3.3 GM/DL (3.2-5.2); ALT/SGPT 16 U/L (12-78); BILIRUBIN,DIRECT < 0.1 MG/DL (0.0-0.2); BILIRUBIN,TOTAL 0.2 MG/DL (0.2-1.0); BLOOD UREA NITROGEN 13 MG/DL (7-18); CALCIUM LEVEL 8.1 MG/DL (8.5-10.1); CARBON DIOXIDE LEVEL 20 MEQ/L (21-32); CHLORIDE LEVEL 111 MEQ/L (98-107); CREATININE FOR GFR 1.03 MG/DL (0.55-1.30); ETHYL ALCOHOL (ETHANOL) 0.003 % (0.000-0.010); GLOMERULAR FILTRATION RATE > 60.0 (>60); GLUCOSE, FASTING 123 MG/DL (70-100); POTASSIUM SERUM 3.7 MEQ/L (3.5-5.1); SALICYLATE LEVEL < 1.7 MG/DL (5.0-30.0); SODIUM LEVEL 143 MEQ/L (136-145); TOTAL PROTEIN 6.5 GM/DL (6.4-8.2)
[2018-06-15 03:01] LABS: AMPHETAMINES LEVEL URINE NEGATIVE (NEGATIVE); BARBITURATES URINE NEGATIVE (NEGATIVE); BENZODIAZEPINES URINE POSITIVE (NEGATIVE); CANNABINOIDS URINE NEGATIVE (NEGATIVE); COCAINE METABOLITE URINE NEGATIVE (NEGATIVE); METHADONE URINE NEGATIVE (NEGATIVE); OPIATES URINE NEGATIVE (NEGATIVE); PHENCYCLIDINE URINE NEGATIVE (NEGATIVE)
[2018-06-15 03:54] LABS: LITHIUM LEVEL 0.51 MEQ/L (0.60-1.20)
[2018-06-15 05:21] VITALS: BP 118/60
--- NOTE | 2018-06-15 15:39 | ECGEPIP ---
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
== END 2018-06-15 05:52 | disposition short-term general hospital (02) ==
LOC: M ED 23:51
DX: F91.9 Conduct disorder, unspecified (principal); F60.9 Personality disorder, unspecified; E73.9 Lactose intolerance, unspecified; Z79.899 Other long term (current) drug therapy
CPT/HCPCS: 36415; 80048; 80076; 80178; 80307; 84443; 84703; 85027; 93005; 96372; 99285; G0480; J1200; J1630

== ENCOUNTER 2018-06-26 20:25 | Emergency (ER) | payer OTHER ==
[~2018-06-26] VITALS: Ht 152.4 cm; Wt 100.0 kg
[2018-06-26] MEDS ORDERED: NS 1,000 ML IV ONE (23:00)
[2018-06-26] MEDS ORDERED: ACETAMINOPHEN TAB 650MG DOSE (2X325MG) PO ONE (23:00)
[2018-06-26] MEDS ORDERED: ONDANSETRON 4MG/2ML VIAL (J2405) IV PRN (23:00)
[2018-06-26 23:34] LABS: HEMATOCRIT 40.5 % (36.0-47.0); HEMOGLOBIN 13.2 g/dl (12.0-15.5); MEAN CORPUSCULAR HEMOGLOBIN 30.6 pg (27.0-33.0); MEAN CORPUSCULAR HGB CONC 32.6 g/dl (32.0-36.5); MEAN CORPUSCULAR VOLUME 93.8 fl (80.0-96.0); PLATELET COUNT, AUTOMATED 334 10^3/uL (150-450); RED BLOOD COUNT 4.32 10^6/uL (4.00-5.40); WHITE BLOOD COUNT 10.1 10^3/uL (4.0-10.0)
[2018-06-26 23:44] LABS: INR 0.83; PROTHROMBIN TIME 11.5 SECONDS (12.1-14.4)
[2018-06-26 23:47] LABS: D-DIMER QUANT 570.94 ng/ml (<500)
[2018-06-26 23:59] LABS: ALBUMIN 3.7 GM/DL (3.2-5.2); ALT/SGPT 31 U/L (12-78); BILIRUBIN,TOTAL 0.1 MG/DL (0.2-1.0); BLOOD UREA NITROGEN 12 MG/DL (7-18); CALCIUM LEVEL 8.6 MG/DL (8.5-10.1); CARBON DIOXIDE LEVEL 23 MEQ/L (21-32); CHLORIDE LEVEL 110 MEQ/L (98-107); CK-MB VALUE MASS < 1.0 NG/ML (<3.6); CPK CREATINE PHOSPHOKINASE 112 U/L (26-192); CREATININE FOR GFR 0.97 MG/DL (0.55-1.30); GLOMERULAR FILTRATION RATE > 60.0 (>60); GLUCOSE, FASTING 85 MG/DL (70-100); LIPASE 174 U/L (73-393); LITHIUM LEVEL 0.58 MEQ/L (0.60-1.20); MB/CK RELATIVE INDEX 0.89 (< OR =4); POTASSIUM SERUM 3.9 MEQ/L (3.5-5.1); SODIUM LEVEL 140 MEQ/L (136-145); TOTAL PROTEIN 7.1 GM/DL (6.4-8.2); TROPONIN I < 0.02 NG/ML (< 0.10)
[2018-06-27 00:07] LABS: HCG, SERUM QUALITATIVE NEGATIVE (NEGATIVE)
[2018-06-27] MEDS ORDERED: ISOVUE-370 76% 100ML VIAL (Q9967) As Ordered ONE (00:19)
[2018-06-27 00:22] LABS: LYMPHOCYTES 57 % (16-52); MONOCYTES 2 % (0-8); NEUTROPHILS 41 % (35-75); PLATELET ESTIMATE NORMAL (NORMAL)
--- NOTE | 2018-06-27 01:41 | REPVR ---
EXAM: CT Angiography Chest With Contrast EXAM DATE/TIME: 06/26/2018 11:48 PM CLINICAL HISTORY: 22 years old, female; Signs and symptoms; Shortness of breath; Additional info: Chhaya Carter for pe TECHNIQUE: Imaging protocol: Axial computed tomographic angiography images of the chest with intravenous contrast using CT angiography protocol. Coronal and sagittal reformatted images were created and reviewed. 3D rendering: MIP reconstructed images were created and reviewed. Radiation optimization: All CT scans at this facility use at least one of these dose optimization techniques: automated exposure control; mA and/or kV adjustment per patient size (includes targeted exams where dose is matched to clinical indication); or iterative reconstruction. Contrast material: ISO; Contrast volume: 75 ml; Contrast route: AC; COMPARISON: CR Chest, 2 view PA, Lat 06/26/2018 8:46 PM FINDINGS: Pulmonary arteries: Normal. No pulmonary emboli. Aorta: Normal. No aortic aneurysm. No aortic dissection. Lungs: Normal. No consolidation. No masses. Pleural space: Normal. No pneumothorax. No pleural effusion. Heart: Normal. No cardiomegaly. No pericardial effusion. Lymph nodes: Unremarkable. No enlarged lymph nodes. Bones/joints: Unremarkable. No acute fracture. Soft tissues: Unremarkable. IMPRESSION: No acute findings. Electronically signed by: Izabella Martinez On 06/27/2018 01:41:08 AM
--- NOTE | 2018-06-27 01:44 | ECGEPIP ---
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
[2018-06-27 01:57] VITALS: BP 115/63
--- NOTE | 2018-06-27 08:55 | REP ---
Chest x-ray: Two views. History: Reproducible chest pain . Comparison study: No comparison study. . Findings: The lungs are well inflated and free of infiltrate. The pleural angles are sharp. The heart size is normal. Pulmonary vasculature is not increased. No significant bony abnormality is seen. Impression: Negative chest x-ray. Electronically Signed by Christiano Carvalho MD 06/27/2018 08:46 A
== END 2018-06-27 02:01 | disposition home or self-care (01) ==
LOC: M ED 20:25
DX: R07.89 Other chest pain (principal); R06.02 Shortness of breath; I10 Essential (primary) hypertension; J45.909 Unspecified asthma, uncomplicated; F41.9 Anxiety disorder, unspecified; F32.9 Major depressive disorder, single episode, unspecified; E03.9 Hypothyroidism, unspecified; Z91.011 Allergy to milk products; Z82.49 Family history of ischemic heart disease and other diseases of the circulatory system
CPT/HCPCS: 71046; 71275; 80053; 80178; 82550; 82553; 83690; 84703; 85025; 85379; 85610; 93005; 96374; 99284; J2405; Q9967

== ENCOUNTER 2018-07-03 19:27 | Inpatient (IN) | payer MEDICAID, OTHER ==
[~2018-07-03] VITALS: Ht 152.4 cm; Wt 109.8 kg
[2018-07-03] MEDS ORDERED: HALOPERIDOL 5 MG/ML VIAL (J1630) IM ONE (20:45)
[2018-07-03] MEDS ORDERED: diphenhydrAMINE INJ 50MG/ML VIAL (J1200) IM ONE (20:45)
[2018-07-03 20:48] LABS: HEMOGLOBIN 13.2 g/dl (12.0-15.5); MEAN CORPUSCULAR HEMOGLOBIN 30.5 pg (27.0-33.0); MEAN CORPUSCULAR VOLUME 92.4 fl (80.0-96.0); PLATELET COUNT, AUTOMATED 296 10^3/uL (150-450); RED BLOOD COUNT 4.33 10^6/uL (4.00-5.40); WHITE BLOOD COUNT 9.2 10^3/uL (4.0-10.0)
[2018-07-03 20:59] LABS: HCG, SERUM QUALITATIVE NEGATIVE (NEGATIVE)
[2018-07-03 21:19] LABS: ACETAMINOPHEN LEVEL < 2.0 UG/ML (10.0-30.0); ALBUMIN 3.8 GM/DL (3.2-5.2); ALT/SGPT 23 U/L (12-78); BILIRUBIN,DIRECT < 0.1 MG/DL (0.0-0.2); BILIRUBIN,TOTAL 0.2 MG/DL (0.2-1.0); BLOOD UREA NITROGEN 14 MG/DL (7-18); CALCIUM LEVEL 8.7 MG/DL (8.5-10.1); CARBON DIOXIDE LEVEL 22 MEQ/L (21-32); CHLORIDE LEVEL 108 MEQ/L (98-107); CREATININE FOR GFR 1.14 MG/DL (0.55-1.30); ETHYL ALCOHOL (ETHANOL) < 0.003 % (0.000-0.010); GLOMERULAR FILTRATION RATE > 60.0 (>60); GLUCOSE, FASTING 96 MG/DL (70-100); POTASSIUM SERUM 3.9 MEQ/L (3.5-5.1); SALICYLATE LEVEL < 1.7 MG/DL (5.0-30.0); SODIUM LEVEL 141 MEQ/L (136-145); TOTAL PROTEIN 7.2 GM/DL (6.4-8.2)
[2018-07-04 00:04] LABS: AMPHETAMINES LEVEL URINE NEGATIVE (NEGATIVE); BARBITURATES URINE NEGATIVE (NEGATIVE); BENZODIAZEPINES URINE NEGATIVE (NEGATIVE); CANNABINOIDS URINE NEGATIVE (NEGATIVE); COCAINE METABOLITE URINE NEGATIVE (NEGATIVE); METHADONE URINE NEGATIVE (NEGATIVE); OPIATES URINE NEGATIVE (NEGATIVE); PHENCYCLIDINE URINE NEGATIVE (NEGATIVE)
[2018-07-04] MEDS ORDERED: MOM 30ML SUSPENSION UDC PO PRN (00:30)
[2018-07-04] MEDS ORDERED: ACETAMINOPHEN TAB 650MG DOSE (2X325MG) PO PRN (00:30)
[2018-07-04] MEDS ORDERED: MAALOX 30 ML SUSP *UDC PO PRN (00:30)
[2018-07-04] MEDS ORDERED: SERT-138 PO (00:53)
[2018-07-04] MEDS ORDERED: LITH45TASA PO (00:53)
[2018-07-04] MEDS ORDERED: TRAZ-186 PO (00:53)
[2018-07-04] MEDS ORDERED: CLOZ100T2 PO (00:53)
[2018-07-04] MEDS ORDERED: METF500T13 PO (00:53)
[2018-07-04] MEDS ORDERED: DIPH50CA PO (00:53)
[2018-07-04] MEDS ORDERED: TOPI50TA9 PO (00:53)
[2018-07-04] MEDS ORDERED: SERO50TA PO (00:53)
[2018-07-04] MEDS ORDERED: AIRD1INH3 INH (00:53)
[2018-07-04] MEDS ORDERED: ALBUTEROL 90 MCG/ACT 8GM HFA INHALER INH PRN (01:00)
[2018-07-04] MEDS ORDERED: traZODone 50 MG TAB PO PRN (01:00)
[2018-07-04] MEDS ORDERED: diphenhydrAMINE 50 MG CAP PO PRN (01:00)
[2018-07-04 01:54] VITALS: BP 128/80
[2018-07-04] MEDS: metFORMIN (GLUCOPHAGE) 500 MG TAB PO SCH ×2 (07:47→17:17)
[2018-07-04] MEDS: cloNIDine 0.1 MG TAB PO SCH ×2 (08:09→20:50)
[2018-07-04] MEDS: TOPIRAMATE (TopAMAX) 25 MG TAB PO SCH ×2 (08:09→20:49)
[2018-07-04] MEDS: SERTRALINE HCL 50 MG TAB PO SCH (08:09)
[2018-07-04] MEDS: AMANTADINE 100 MG CAP PO SCH ×2 (08:09→20:49)
[2018-07-04] MEDS: LITHIUM CARBONATE 450 MG **CR** TAB PO SCH ×2 (08:09→20:49)
[2018-07-04] MEDS ORDERED: HALOPERIDOL 5 MG TAB PO PRN (10:15)
[2018-07-04] MEDS ORDERED: OLANZapine ORAL DISINTEGRATING TAB 5MG PO PRN (10:15)
[2018-07-04 18:00] VITALS: BP 126/77
[2018-07-04] MEDS: QUEtiapine FUMARATE 50 MG TAB PO SCH (20:49)
[2018-07-04] MEDS: cloZAPine 100 MG TAB (S0136) PO SCH (20:50)
[2018-07-04] MEDS: traZODone 50 MG TAB PO PRN (20:50)
[2018-07-05] VITALS (8 sets, daily range): BP systolic 118–138; BP diastolic 57–77
[2018-07-05] MEDS: metFORMIN (GLUCOPHAGE) 500 MG TAB PO SCH ×2 (07:39→17:15)
[2018-07-05] MEDS: LITHIUM CARBONATE 450 MG **CR** TAB PO SCH ×3 (08:27→22:59)
[2018-07-05] MEDS: SERTRALINE HCL 50 MG TAB PO SCH (08:27)
[2018-07-05] MEDS: TOPIRAMATE (TopAMAX) 25 MG TAB PO SCH ×3 (08:27→22:59)
[2018-07-05] MEDS: AMANTADINE 100 MG CAP PO SCH ×3 (08:28→22:58)
[2018-07-05] MEDS: cloNIDine 0.1 MG TAB PO SCH ×3 (08:28→23:09)
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
[2018-07-05] MEDS ORDERED: LORazepam 2 MG/ML VIAL (J2060) IM STA (20:56)
[2018-07-05] MEDS ORDERED: HALOPERIDOL 5 MG/ML VIAL (J1630) IM STA (20:56)
[2018-07-05] MEDS ORDERED: diphenhydrAMINE INJ 50MG/ML VIAL (J1200) IM STA (20:56)
[2018-07-05] MEDS: QUEtiapine FUMARATE 50 MG TAB PO SCH ×2 (21:00→22:58)
[2018-07-05] MEDS: cloZAPine 100 MG TAB (S0136) PO SCH ×2 (21:00→22:59)
--- NOTE | 2018-07-05 21:37 | MHIR ---
General Date: July 05, 2018 Time Initiated: 20:56 Restraint Documentation Order/Evaluation FACE TO FACE: Yes PHYSICIAN ASSESSMENT: Patient was extremely agitated, started banging her head against the teague, was yelling, screaming, got out and stayed between the two main doors at [facility], was biting her arms and hands, pulling her hair. she was not re directable, the nurses attempted to de escalate her anger but she didn't listen and became more aggressive. When I came inside the Unit, 20 minute later, she was in the restraining room with Nurse, Piper pineda by her side. Her arms were wrapped in towels to protect them from her biting them. Piper said that they didn't know why she got so agitated and she asked her if it was a phone call that she had received and she said no. she refused to say what had agitated her. I spoke with her and told her she could talk to me and she became tarful and she said "noooo". I asked why and told her it was OK to cry if that made her feel better but she said it was not OK but she was tearful REASON FOR RESTRAINT: Patient poses imminent danger of harming self or others: Please read above DE-ESCALATION INTERVENTIONS ATTEMPTED BEFORE USE OF RESTRAINTS: Yes, Nurses t ried to re direct, they offered her, her PRN medications, they tried to talk to her but she kept escalating. MECHANICAL AND/OR CHEMICAL RESTRAINTS USED: Both LENGTH OF TIME ORDERED IN RESTRAINTS: 240 minutes. ( 4 hours) and she will be monitored while in the restraining room. WHEN TO DISCONTINUE RESTRAINTS: When the patient is no longer a threat to themselves or others Post evaluation of restraint due in 24 hours. JAYNE GUZMAN MD July 05, 2018 21:37
[2018-07-05] MEDS: traZODone 50 MG TAB PO PRN (23:10)
[2018-07-06 07:51] VITALS: BP 126/77
[2018-07-06] MEDS: LITHIUM CARBONATE 450 MG **CR** TAB PO SCH ×2 (09:18→20:59)
[2018-07-06] MEDS: SERTRALINE HCL 50 MG TAB PO SCH (09:19)
[2018-07-06] MEDS: TOPIRAMATE (TopAMAX) 25 MG TAB PO SCH ×2 (09:19→20:59)
[2018-07-06] MEDS: metFORMIN (GLUCOPHAGE) 500 MG TAB PO SCH ×2 (09:19→17:23)
[2018-07-06] MEDS: AMANTADINE 100 MG CAP PO SCH ×2 (09:19→21:00)
[2018-07-06] MEDS: cloNIDine 0.1 MG TAB PO SCH ×2 (09:19→21:00)
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
[2018-07-06 18:00] VITALS: BP 116/79
[2018-07-06] MEDS: QUEtiapine FUMARATE 50 MG TAB PO SCH (20:59)
[2018-07-06] MEDS: cloZAPine 100 MG TAB (S0136) PO SCH (20:59)
[2018-07-07 06:42] VITALS: BP 133/65
[2018-07-07] MEDS: metFORMIN (GLUCOPHAGE) 500 MG TAB PO SCH (07:55)
[2018-07-07 09:17] VITALS: BP 120/66
[2018-07-07] MEDS: cloNIDine 0.1 MG TAB PO SCH (09:17)
[2018-07-07] MEDS: SERTRALINE HCL 50 MG TAB PO SCH (09:17)
[2018-07-07] MEDS: TOPIRAMATE (TopAMAX) 25 MG TAB PO SCH (09:17)
[2018-07-07] MEDS: LITHIUM CARBONATE 450 MG **CR** TAB PO SCH (09:17)
[2018-07-07] MEDS: AMANTADINE 100 MG CAP PO SCH (10:06)
[2018-07-07] MEDS ORDERED: HALO5TA PO (12:42)
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
== END 2018-07-07 13:35 | disposition home or self-care (01) | DRG 750 ==
LOC: M ED 19:27 → M ED INP 07-04 00:20 → M PSY 07-04 01:37
PROVIDERS: ADMIT Psychiatry & Neurology Psychiatry; ATTEND Psychiatry & Neurology Psychiatry
DX: F25.0 Schizoaffective disorder, bipolar type (principal); F60.3 Borderline personality disorder; F70 Mild intellectual disabilities; Z79.84 Long term (current) use of oral hypoglycemic drugs; Z79.899 Other long term (current) drug therapy; R73.03 Prediabetes; E66.9 Obesity, unspecified

== ENCOUNTER 2018-07-16 18:30 | Emergency (ER) | payer MEDICAID, OTHER ==
[~2018-07-16] VITALS: Ht 152.4 cm; Wt 97.7 kg
[~2018-07-16 18:30] MED LIST changes: +AIRD1INH3 INH; +METF500T13 PO; +SERO50TA PO; +TOPI50TA9 PO
[2018-07-16] MEDS ORDERED: NS 1,000 ML IV ONE (19:15)
[2018-07-16 19:47] LABS: BASO # 0.1 10^3/uL (0.0-0.2); BASO % 0.6 % (0.0-1.0); EOS % 0.1 % (0.0-3.0); HEMOGLOBIN 13.1 g/dl (12.0-15.5); LYMPH # 2.8 10^3/uL (1.5-6.5); LYMPH % 33.5 % (24.0-44.0); MEAN CORPUSCULAR HEMOGLOBIN 30.8 pg (27.0-33.0); MEAN CORPUSCULAR HGB CONC 32.8 g/dl (32.0-36.5); MEAN CORPUSCULAR VOLUME 93.9 fl (80.0-96.0); MONO # 0.6 10^3/uL (0.0-0.8); MONO % 7.7 % (0.0-5.0); NEUTROPHILS # 4.8 10^3/uL (1.8-7.7); NEUTROPHILS % 57.9 % (36.0-66.0); PLATELET COUNT, AUTOMATED 255 10^3/uL (150-450); RED BLOOD COUNT 4.26 10^6/uL (4.00-5.40); WHITE BLOOD COUNT 8.3 10^3/uL (4.0-10.0)
[2018-07-16 20:17] LABS: ALBUMIN 3.7 GM/DL (3.2-5.2); ALT/SGPT 18 U/L (12-78); BILIRUBIN,DIRECT < 0.1 MG/DL (0.0-0.2); BILIRUBIN,TOTAL 0.2 MG/DL (0.2-1.0); BLOOD UREA NITROGEN 11 MG/DL (7-18); CALCIUM LEVEL 8.1 MG/DL (8.5-10.1); CARBON DIOXIDE LEVEL 19 MEQ/L (21-32); CHLORIDE LEVEL 112 MEQ/L (98-107); CREATININE FOR GFR 0.92 MG/DL (0.55-1.30); GLOMERULAR FILTRATION RATE > 60.0 (>60); GLUCOSE, FASTING 70 MG/DL (70-100); LIPASE 204 U/L (73-393); POTASSIUM SERUM 4.2 MEQ/L (3.5-5.1); SODIUM LEVEL 142 MEQ/L (136-145); TOTAL PROTEIN 6.9 GM/DL (6.4-8.2)
[2018-07-16] MEDS ORDERED: ISOVUE-370 76% 100ML VIAL (Q9967) As Ordered ONE (21:10)
--- NOTE | 2018-07-16 22:10 | REPVR ---
EXAM: CT Abdomen and Pelvis With Contrast EXAM DATE/TIME: 07/16/2018 9:12 PM CLINICAL HISTORY: 22 years old, female; Abdominal pain; Other: Diffuse; Additional info: Diffuse abd pain TECHNIQUE: Imaging protocol: Axial computed tomography images of the abdomen and pelvis with intravenous contrast. Coronal and sagittal reformatted images were created and reviewed. Radiation optimization: All CT scans at this facility use at least one of these dose optimization techniques: automated exposure control; mA and/or kV adjustment per patient size (includes targeted exams where dose is matched to clinical indication); or iterative reconstruction. Contrast material: ISOVUE 370; Contrast volume: 100 ml; Contrast route: IV; COMPARISON: No relevant prior studies available. FINDINGS: Lungs: Minimal linear stranding at the lung bases, consistent with atelectasis and/or scarring. ABDOMEN: Liver: Unremarkable. Gallbladder and bile ducts: No radiodense gallstones. No biliary ductal dilatation. Pancreas: Unremarkable. Spleen: Unremarkable. Adrenals: Unremarkable. Kidneys and ureters: No mass. No radiodense calculi. No hydronephrosis. Stomach and bowel: Moderate amount of retained stool in the colon. No obstruction. No bowel wall thickening. No pneumatosis. Appendix: Normal. PELVIS: Bladder: Mild circumferential urinary bladder wall thickening, possibly secondary to underdistention. Reproductive: Unremarkable. ABDOMEN and PELVIS: Intraperitoneal space: No free fluid. No organized fluid collection. No free air. Bones/joints: No acute osseous abnormality. Soft tissues: Unremarkable. Vasculature: Unremarkable. No aneurysm. Lymph nodes: Small mesenteric lymph nodes, nonspecific in appearance. No pathologically enlarged lymph nodes. IMPRESSION: 1. Mild circumferential urinary bladder wall thickening, possibly secondary to underdistention. Correlate with urinalysis to exclude cystitis. 2. Additional findings, as above. Electronically signed by: Yoandy Quick On 07/16/2018 22:09:55 PM
[2018-07-16 22:35] VITALS: BP 132/92
== END 2018-07-16 22:52 | disposition home or self-care (01) ==
LOC: M ED 18:30
DX: R10.84 Generalized abdominal pain (principal); R19.7 Diarrhea, unspecified; E03.9 Hypothyroidism, unspecified; I10 Essential (primary) hypertension; R73.03 Prediabetes; F25.0 Schizoaffective disorder, bipolar type; F60.3 Borderline personality disorder; F79 Unspecified intellectual disabilities; J45.909 Unspecified asthma, uncomplicated; E73.9 Lactose intolerance, unspecified; Z79.899 Other long term (current) drug therapy; Z79.84 Long term (current) use of oral hypoglycemic drugs
CPT/HCPCS: 74177; 80048; 80076; 81001; 83690; 84702; 85025; 87086; 96360; 96361; 99284; Q9967

== ENCOUNTER → 2018-07-17 | Outpatient (REF) | payer OTHER | LOC: M LAB REF 13:34 | PROVIDERS: ATTEND Physician Assistant | DX: E03.8 Other specified hypothyroidism (principal) ==

== ENCOUNTER → 2018-07-18 | Outpatient (CLI) | payer OTHER | LOC: M LAB 13:01 | PROVIDERS: ATTEND Internal Medicine Endocrinology, Diabetes & Metabolism | DX: E03.8 Other specified hypothyroidism (principal) ==

== ENCOUNTER 2018-07-30 17:52 | Inpatient (IN) | payer MEDICAID, OTHER ==
[~2018-07-30] VITALS: Ht 152.4 cm; Wt 100.0 kg
[2018-07-30] MEDS ORDERED: HALOPERIDOL 5 MG/ML VIAL (J1630) IM ONE (19:15)
[2018-07-30] MEDS ORDERED: LORazepam 2 MG/ML VIAL (J2060) IM ONE (19:15)
[2018-07-30] MEDS ORDERED: diphenhydrAMINE INJ 50MG/ML VIAL (J1200) IM ONE (19:15)
[2018-07-30 21:02] LABS: BASO # 0.1 10^3/uL (0.0-0.2); BASO % 0.8 % (0.0-1.0); HEMATOCRIT 41.2 % (36.0-47.0); HEMOGLOBIN 13.4 g/dl (12.0-15.5); LYMPH % 32.9 % (24.0-44.0); MEAN CORPUSCULAR HEMOGLOBIN 30.5 pg (27.0-33.0); MEAN CORPUSCULAR HGB CONC 32.5 g/dl (32.0-36.5); MEAN CORPUSCULAR VOLUME 93.8 fl (80.0-96.0); MONO # 0.6 10^3/uL (0.0-0.8); MONO % 6.6 % (0.0-5.0); NEUTROPHILS # 5.4 10^3/uL (1.8-7.7); NEUTROPHILS % 59.5 % (36.0-66.0); PLATELET COUNT, AUTOMATED 279 10^3/uL (150-450); RED BLOOD COUNT 4.39 10^6/uL (4.00-5.40); WHITE BLOOD COUNT 9.1 10^3/uL (4.0-10.0)
[2018-07-30 21:17] LABS: HCG, SERUM QUALITATIVE NEGATIVE (NEGATIVE)
[2018-07-30 21:20] LABS: AMPHETAMINES LEVEL URINE NEGATIVE (NEGATIVE); BARBITURATES URINE NEGATIVE (NEGATIVE); BENZODIAZEPINES URINE NEGATIVE (NEGATIVE); CANNABINOIDS URINE NEGATIVE (NEGATIVE); COCAINE METABOLITE URINE NEGATIVE (NEGATIVE); METHADONE URINE NEGATIVE (NEGATIVE); OPIATES URINE NEGATIVE (NEGATIVE); PHENCYCLIDINE URINE NEGATIVE (NEGATIVE)
[2018-07-30 21:30] LABS: ACETAMINOPHEN LEVEL < 2.0 UG/ML (10.0-30.0); ALBUMIN 3.7 GM/DL (3.2-5.2); ALT/SGPT 25 U/L (12-78); BILIRUBIN,DIRECT < 0.1 MG/DL (0.0-0.2); BILIRUBIN,TOTAL 0.2 MG/DL (0.2-1.0); BLOOD UREA NITROGEN 12 MG/DL (7-18); CALCIUM LEVEL 9.1 MG/DL (8.5-10.1); CARBON DIOXIDE LEVEL 22 MEQ/L (21-32); CHLORIDE LEVEL 111 MEQ/L (98-107); CREATININE FOR GFR 0.88 MG/DL (0.55-1.30); ETHYL ALCOHOL (ETHANOL) < 0.003 % (0.000-0.010); GLOMERULAR FILTRATION RATE > 60.0 (>60); GLUCOSE, FASTING 93 MG/DL (70-100); LITHIUM LEVEL 0.59 MEQ/L (0.60-1.20); POTASSIUM SERUM 4.3 MEQ/L (3.5-5.1); SALICYLATE LEVEL < 1.7 MG/DL (5.0-30.0); SODIUM LEVEL 142 MEQ/L (136-145); TOTAL PROTEIN 6.9 GM/DL (6.4-8.2)
[2018-07-31] MEDS ORDERED: metFORMIN (GLUCOPHAGE) 1000 MG TABLET PO ONE ×3 (08:45→20:30)
[2018-07-31] MEDS ORDERED: LITHIUM CARBONATE 450 MG **CR** TAB PO ONE (08:45)
[2018-07-31] MEDS ORDERED: SERTRALINE HCL 50 MG TAB PO ONE (08:45)
[2018-07-31] MEDS ORDERED: cloNIDine 0.1 MG TAB PO ONE ×3 (08:45→20:30)
[2018-07-31] MEDS ORDERED: TOPIRAMATE (TopAMAX) 25 MG TAB PO ONE ×3 (08:45→20:30)
[2018-07-31] MEDS ORDERED: LORazepam 2 MG TAB PO STA (13:35)
[2018-07-31] MEDS ORDERED: LITHIUM CARBONATE 150 MG CAP PO ONE ×2 (20:30)
[2018-07-31] MEDS ORDERED: AMANTADINE 100 MG CAP PO ONE ×2 (20:30)
[2018-07-31] MEDS ORDERED: cloZAPine 100 MG TAB (S0136) PO ONE ×2 (21:00)
--- NOTE | 2018-07-31 21:07 | ECGEPIP ---
[facility] - ED Test Date: 2018-07-31 Pat Name: TORRES KIET Department: Room: - Gender: Female Enrollment Services Vice President: DIANE : 1995 Requested By: Salina Haider Order Number: [id number] Reading MD: Salina Haider Measurements Intervals [place] Rate: 100 P: 18 IN: 147 QRS: QRSD: 100 T: QT: 376 QTc: 485 Interpretive Statements SINUS TACHYCARDIA INFERIOR MYOCARDIAL INFARCTION, PROBABLY OLD DECREASED RATE 06/26/16 Electronically Signed on 07-31-2018 21:06:57 EDT by Salina Haider
[2018-08-01] VITALS (14 sets, daily range): BP systolic 117–140; BP diastolic 56–107
[2018-08-01] MEDS: TOPIRAMATE (TopAMAX) 25 MG TAB PO SCH ×2 (10:49→22:00)
[2018-08-01] MEDS: metFORMIN (GLUCOPHAGE) 1000 MG TABLET PO SCH ×2 (10:50→22:00)
[2018-08-01] MEDS: SERTRALINE HCL 50 MG TAB PO SCH (10:50)
[2018-08-01] MEDS: cloNIDine 0.1 MG TAB PO SCH ×2 (10:50→21:59)
[2018-08-01] MEDS: LITHIUM CARBONATE 450 MG **CR** TAB PO SCH ×2 (11:17→22:00)
[2018-08-01] MEDS ORDERED: HALO5TA PO (11:52)
[2018-08-01] MEDS ORDERED: QUET1TAB7 PO (11:52)
[2018-08-01] MEDS ORDERED: MAALOX 30 ML SUSP *UDC PO PRN (14:15)
[2018-08-01] MEDS ORDERED: ACETAMINOPHEN TAB 650MG DOSE (2X325MG) PO PRN (14:15)
[2018-08-01] MEDS ORDERED: MOM 30ML SUSPENSION UDC PO PRN (14:15)
[2018-08-01] MEDS ORDERED: diphenhydrAMINE INJ 50MG/ML VIAL (J1200) IM STA ×3 (15:25→19:49)
[2018-08-01] MEDS ORDERED: HALOPERIDOL 5 MG/ML VIAL (J1630) IM STA ×3 (15:25→19:51)
[2018-08-01] MEDS ORDERED: LORazepam 2 MG/ML VIAL (J2060) IM STA ×3 (15:25→19:49)
--- NOTE | 2018-08-01 20:38 | MHIPN ---
DATE: 08/01/2018 I am carbon capture power plant manager katharina and I was called a few minutes ago. I was told that the patient had been agitated and was trying to leave the unit, was at the door and then was banging the door, other doors as well. Staff had attempted to direct her without success, and she needed to be coded, Code 25, and was restrained in four points. I came here a few minutes later. She is in restraints. She has received intramuscular Haldol and Ativan and Benadryl, other methods of directing her have not been successful. She is in the process of being given the injections. She was relatively calm when I saw her and was alert. When asked if injections that she received earlier in the afternoon, similar to the ones above, have been helpful, she indicated that they had, and we will look at keeping her in restraints for the shortest time possible, per protocol. She has a history of agitation and had received intramuscular antiagitation medications, from what I understand, when she was still in the emergency room earlier this afternoon.
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
--- NOTE | 2018-08-01 21:19 | MHIR ---
General Date: August 01, 2018 Time Initiated: 15:44 Restraint Documentation Order/Evaluation FACE TO FACE: Yes PHYSICIAN ASSESSMENT: patient started screaming at the moment she set feet on the Unit. She started yelling : "I don't need to be here" and it escalated to the point where she wouldn't leave the door, kept yelling, was very agitated and was agitating other patients REASON FOR RESTRAINT: Patient poses imminent danger of harming self or others: As above DE-ESCALATION INTERVENTIONS ATTEMPTED BEFORE USE OF RESTRAINTS: Yes, she was re directed, staff was supportive, medications (oral) were offered, she was asked to go to the restraining room that is next to the Nurses station and she didn't. [MECHANICAL AND/OR CHEMICAL] RESTRAINTS USED: Both. 4 point restraints and Haldo, 10 mgs. Benadryl 50 mgs and Ativan 2 mgs. LENGTH OF TIME ORDERED IN RESTRAINTS: 240 minutes. WHEN TO DISCONTINUE RESTRAINTS: When the patient is no longer a threat to themselves or others Post evaluation of restraint due in 24 hours. JAYNE GUZMAN MD August 01, 2018 21:19
[2018-08-01] MEDS: traZODone 50 MG TAB PO PRN (22:00)
[2018-08-02 06:23] VITALS: BP 134/67
[2018-08-02] MEDS: TOPIRAMATE (TopAMAX) 25 MG TAB PO SCH ×2 (09:14→21:24)
[2018-08-02] MEDS: cloNIDine 0.1 MG TAB PO SCH ×2 (09:14→21:24)
[2018-08-02] MEDS: metFORMIN (GLUCOPHAGE) 1000 MG TABLET PO SCH ×2 (09:14→21:24)
[2018-08-02] MEDS: LITHIUM CARBONATE 450 MG **CR** TAB PO SCH ×2 (09:14→21:24)
[2018-08-02] MEDS: SERTRALINE HCL 50 MG TAB PO SCH (09:14)
[2018-08-02 11:21] LABS: HEMOGLOBIN A1c 4.4 %
--- NOTE | 2018-08-02 12:01 | HPEPDOC ---
General Date of Admission August 01, 2018 at 14:10 Date of Service: August 02, 2018 Attending Physician: JEANETTE RAMEY MD Chief Complaint The patient is a 22-year-old female admitted with a reason for visit of Schizoaffective Disorder. Source: RN/ Exam Limitations: Clinical conditions, Mild cognitive slowing Timing/Duration: Unsure Severity: Severe Associated Symptoms: Increased agitation History of Present Illness Patient is a 22-year-old female, admitted to inpatient psychiatric unit on account of suicidal attempt. Today was the second attempted evaluation of patient. Yesterday she was very agitated, mental status was altered, and patient was in 4 points restraint and unwilling to be examined. Today, she is cooperative with exam, denies any medical complaints at this time. Denies chest pain, shortness of breath, weakness, nausea, abdominal pain, diarrhea. At time of assessment there was a safety sealer at bedside Home Medications Scheduled Amantadine HCl (Amantadine) 100 Mg Tab, 100 MG PO QHS, (Reported) Clonidine Hcl (Clonidine HCl) 0.1 Mg Tablet, 0.1 MG PO BID, (Reported) Clozapine (Clozapine) 100 Mg Tablet, 400 MG PO QHS, (Reported) Fluticasone Propion/Salmeterol (Airduo Respiclick 232-14 Mcg) 1 Each Aer.pow.ba, 1 PUFF INH BID, (Reported) Lactase (Lactaid) 3,000 Unit Tab, 6,000 UNIT PO ASDIRECTED, (Reported) TAKES 2 TABS ANY TIME PATIENT HAS DAIRY [place] Carbonate (Kunkle Carbonate ER) 450 Mg Tablet.er, 450 MG PO BID, (Reported) Metformin HCl (Metformin HCl) 500 Mg Tablet, 1,000 MG PO BID, (Reported) Norethindrone-E.estradiol-Iron (Junel Fe 1.5 mg-30 Mcg Tablet) 1 Tab Tab, 1 TAB PO QHS, (Reported) Quetiapine Fumarate (Quetiapine Fumarate) 25 Mg Tablet, 25 MG PO QHS, (Reported) Sertraline HCl (Sertraline HCl) 100 Mg Tablet, 150 MG PO DAILY, (Reported) Topiramate (Topiramate) 50 Mg Tablet, 50 MG PO BID, (Reported) Scheduled PRN Albuterol Sulfate (Ventolin Hfa) 108 Mcg/Act Aer, 2 PUFFS INH QID PRN for SHORTNESS OF BREATH, (Reported) Diphenhydramine HCl (Diphenhydramine HCl) 50 Mg Capsule, 100 MG PO QHS PRN for SLEEP, (Reported) Haloperidol (Haloperidol) 5 Mg Tablet, 10 MG PO Q8H PRN for ANXIETY/AGITATION, (Reported) Trazodone HCl (Trazodone HCl) 50 Mg Tablet, 50 MG PO QHS PRN for SLEEP, (Reported) Allergies Coded Allergies: lactose (Verified Allergy, Unknown, 06/26/18) Past Medical History Medical History Morbid obesity Intellectual disability Schizoaffective disorder Social History * Smoker: Denies Alcohol: Denies Drugs: denies A-FIB/CHADSVASC A-FIB History Current/History of A-Fib/PAF?: No Current PO Anticoag Therapy: No Age/Risk Factor Scoring CHADSVASC: CHADSVASC Response (Comments) Value Age Risk Factor Age < 65 years old 0 Gender Risk Factor Female 1 Hx of CHF No 0 Hx of HTN No 0 Hx of Stroke/TIA/or VTE No 0 Hx of Diabetes Yes 1 Hx of Vascular Disease No 0 Total 2 Review of Systems Other systems Review of systems was limited and negative except as stated in the history of presenting illness Physical Examination General Exam: Positive: Alert, Cooperative, No Acute Distress Eye Exam: Positive: PERRLA, EOMI ENT Exam: Positive: Atraumatic, Mucous membr. moist/pink Neck Exam: Positive: Supple; Negative: JVD, thyromegaly, +2 carotid pulse wo bruit Chest Exam: Positive: Clear to auscultation, Normal air movement; Negative: Rales, Rhonchi, Wheezing Heart Exam: Positive: Rate Normal, Regular Rhythm Abdomen Exam: Positive: Normal bowel sounds, Soft; Negative: Tenderness, Mass Extremity Exam: Positive: Normal pulses; Negative: Clubbing, Cyanosis, Edema Skin Exam: Positive: Nl turgor and temperature; Negative: Rash, Breakdown Neuro Exam: Positive: Normal Speech Psych Exam: Negative: Anxiety Vital Signs Vital Signs Date Time Temp Pulse Resp B/P (MAP) Pulse Ox O2 Delivery O2 Flow Rate FiO2 08/02/18 08:13 Room Air 08/02/18 06:23 99.1 74 18 134/67 (89) 08/01/18 20:00 96 Laboratory Data Labs 24H Laboratory Tests 2 08/02/18 09:43: Estimated Mean Plasma Glucose 80, Hemoglobin A1c 4.4 Assessment/Plan Morbid obesity Suicide attempt. Intellectual disability Schizoaffective disorder PLAN At this time. Patient has no medical problems requiring medical management and follow-up. Acute psychiatric problems and reason for hospitalization to be managed by primary team. Please reconsult medical team should the need arise Plan / VTE VTE Prophylaxis Ordered?: No VTE Exclusion Mechanical Proph: Low Risk for VTE MARIIA GARCIA August 02, 2018 12:01
[2018-08-02] MEDS ORDERED: HALOPERIDOL 10 MG TAB PO ONE (16:15)
[2018-08-02] MEDS ORDERED: diphenhydrAMINE 50 MG CAP PO ONE (16:15)
[2018-08-02] MEDS ORDERED: LORazepam 2 MG TAB PO ONE (16:15)
[2018-08-02 18:00] VITALS: BP 129/74
--- NOTE | 2018-08-02 19:31 | MHPR ---
General Date: August 02, 2018 Time: 19:27 Post-Restraint Evaluation THE OUTCOME OF THE RESTRAINT: Good, the patient was able to calm down EFFECTIVENESS OF THE RESTRAINT: Mechanical and chemical: Positive ANY EVIDENCE THAT THE PATIENT WAS AFFECTED EMOTIONALLY: Not affected in a negative way. the patient has been less aggressive, less anxious, less violent. she has denied hearing voices, denies feeling suicidal, denies thought delusions ANY NEED FOR COUNSELING/ASSISTANCE: She has received support from all staff members CHANGES IN TREATMENT PLAN: She will be taking the same medications. Much of her problem is behavioral and secondary to personality disorder RECOMMENDATIONS FOR FUTURE INCIDENTS: continue to provide support. JAYNE GUZMAN MD August 02, 2018 19:31
--- NOTE | 2018-08-02 19:41 | MHIPNPDOC ---
[facility] Progress Note Progress Note DATE OF SERVICE: 08/02/18 HISTORY: CHIEF COMPLAINT: Patient is a 22-year-old female, who, as per ED report: "Pt was brought to the ED by [employer] after being called by [facility] staff because pt cut her wrist as a suicide attempt. HISTORY OF PRESENT ILLNESS: Patient is a 22-year-old female, who, as per ED report: "Pt was brought to the ED by [employer] after being called by TLS staff because pt cut her wrist as a suicide attempt. Pt states that TLS staff called police because she cut her wrist as a suicide attempt. The cuts are superficial to her right wrist. Pt states that she continues to have SI with plans for cutting, strangling herself, & jumping off a bridge. Pt was physically & chemically restrained prior to this assessment because she became agitated, attempted to leave the unit, & then tied a pillowcase around her neck. Pt states that she has AH & VH of a little girl & the girl tells her to kill herself. Pt denies HI. She c/o depressed mood, anxiety, hopelessness, poor appetite, & excessive sleep. Pt states main trigger was "a bad phone call with my mom" but declines to explain further. Pt has had multiple prior admissions to [facility], last discharged on 07/07/18. She has a dx of schizoaffective d/o, borderline personality d/o, & intellectual disability. She has OP tx at [facility]. She is currently prescribed clonidine, lithium, zoloft, clozaril, topamax" VITAL SIGNS: See below. NEW TEST RESULTS: See below CURRENT MEDICATIONS: See below. MENTAL STATUS EXAMINATION: Patient is a 22-year old female, who is alert, uncooperative, dressed in personal clothes. Speech: Is loud, normal tone. Screaming and yelling at times Language skills are fair. Thought processes including: concrete yet linear. Thought content: full of angry thoughts about the relationship with her mother. Description of abnormal or psychotic thoughts: denies AV hallucinations, denies thought delusions, denies suicidal thoughts, denies homicidal thoughts Judgment: poor Insight: poor. Orientation: x 3. Recent and remote memory: intact. Attention span and concentration: fair. Language: average. Fund of knowledge: below average, patient has intellectual disability. Mood: euthymic. Affect: congruent with mood. DIAGNOSES: 1. Schizoaffective disorder. 2. borderline personality disorder. 3. mild intellectual disability. ASSESSMENT: the patient had a behavioral problem this afternoon and all staff was there to support her, set limits and boundaried, told her that if she kept i n behavioral control she would be able to have a phone conversation with her mother. later on she spoke to me and apologized for her behavioral problem this afternoon. She denied being suicidal, she is not responding to internal stimuli, she is not delusional. she keeps having a good time when she gets a sitter, she jokes, she laughs with them and when the sitter has to leave, because there is another one coming in, she starts acting out. She wants people to pay attention to her, to stay with her the whole time, this is one of her main problems and she doesn't want to be alone MANAGEMENT PLAN: will continue with the same treatment plan. TIME SPENT: 20 minutes. Vital Signs Vital Signs Date Time Temp Pulse Resp B/P (MAP) Pulse Ox O2 Delivery O2 Flow Rate FiO2 08/02/18 18:00 97.3 110 16 129/74 (92) 08/02/18 08:13 Room Air 08/01/18 20:00 96 Laboratory Data 24H Labs Laboratory Tests 2 08/02/18 09:43: Estimated Mean Plasma Glucose 80, Hemoglobin A1c 4.4 Current Medications Current Medications Acetaminophen (Tylenol Tab) 650 mg Q6HP PRN PO HEADACHE or DISCOMFORT Last administered on 08/02/18at 17:09; Start 08/01/18 at 14:15 Al Hydrox/Mg Hydrox/Simethicone (Mylanta) 30 ml Q4HP PRN PO HEARTBURN/INDIGESTION; Start 08/01/18 at 14:15 Clonidine HCl (Catapres) 0.1 mg BID PO Last administered on 08/02/18at 09:14; Start 08/01/18 at 10:15 Diphenhydramine HCl (Benadryl) 50 mg STAT STAT IM Last administered on 08/01/18at 15:44; Start 08/01/18 at 15:25; Stop 08/01/18 at 15:28; Status DC Diphenhydramine HCl (Benadryl) 50 mg STAT STAT IM ; Start 08/01/18 at 15:29; Stop 08/01/18 at 15:30; Status Cancel Diphenhydramine HCl (Benadryl) 50 mg STAT STAT IM Last administered on 08/01/18at 19:59; Start 08/01/18 at 19:49; Stop 08/01/18 at 19:51; Status DC Haloperidol (Haldol) 5 mg STAT STAT IM Last administered on 08/01/18at 20:12; Start 08/01/18 at 19:51; Stop 08/01/18 at 19:52; Status DC Haloperidol (Haldol) 10 mg STAT STAT IM Last administered on 08/01/18at 15:44; Start 08/01/18 at 15:25; Stop 08/01/18 at 15:28; Status DC Haloperidol (Haldol) 10 mg STAT STAT IM ; Start 08/01/18 at 15:29; Stop 08/01/18 at 15:30; Status Cancel Home Med (Med Rec Complete!) ASDIRECTED XX ; Start 08/01/18 at 12:00; Stop 08/01/18 at 12:00; Status DC [place] Carbonate (Eskalith-Cr) 450 mg BID PO Last administered on 08/02/18at 09:14; Start 08/01/18 at 10:15 Lorazepam (Ativan) 2 mg STAT STAT IM Last administered on 08/01/18at 15:44; Start 08/01/18 at 15:25; Stop 08/01/18 at 15:29; Status DC Lorazepam (Ativan) 2 mg STAT STAT IM ; Start 08/01/18 at 15:29; Stop 08/01/18 at 15:30; Status UNV Lorazepam (Ativan) 2 mg STAT STAT IM Last administered on 08/01/18at 19:59; Start 08/01/18 at 19:49; Stop 08/01/18 at 19:51; Status DC Lorazepam (Ativan) 2 mg STAT STAT PO ; Start 07/31/18 at 13:35; Stop 07/31/18 at 13:40; Status DC Magnesium Hydroxide (Milk Of Magnesia) 30 ml DAILYPRN PRN PO CONSTIPATION; Start 08/01/18 at 14:15 Metformin HCl (Glucophage) 1,000 mg BID PO Last administered on 08/02/18at 09:14; Start 08/01/18 at 10:15 Sertraline HCl (Zoloft) 150 mg DAILY PO Last administered on 08/02/18at 09:14; Start 08/01/18 at 10:15 Topiramate (TopAMAX) 50 mg BID PO Last administered on 08/02/18at 09:14; Start 08/01/18 at 10:15 Trazodone HCl (Desyrel) 50 mg QHSP PRN PO INSOMNIA Last administered on 08/01/18at 22:00; Start 08/01/18 at 14:15 Allergies Coded Allergies: lactose (Verified Allergy, Unknown, 06/26/18) JAYNE GUZMAN MD August 02, 2018 19:41
[2018-08-02] MEDS: traZODone 50 MG TAB PO PRN (21:24)
[2018-08-03 06:30] VITALS: BP 128/67
[2018-08-03 06:45] LABS: HEMATOCRIT 42.4 % (36.0-47.0); HEMOGLOBIN 13.5 g/dl (12.0-15.5); MEAN CORPUSCULAR HEMOGLOBIN 30.1 pg (27.0-33.0); MEAN CORPUSCULAR HGB CONC 31.8 g/dl (32.0-36.5); MEAN CORPUSCULAR VOLUME 94.6 fl (80.0-96.0); PLATELET COUNT, AUTOMATED 294 10^3/uL (150-450); RED BLOOD COUNT 4.48 10^6/uL (4.00-5.40); WHITE BLOOD COUNT 8.7 10^3/uL (4.0-10.0)
[2018-08-03 07:11] LABS: ALBUMIN 3.4 GM/DL (3.2-5.2); ALT/SGPT 31 U/L (12-78); BILIRUBIN,TOTAL 0.3 MG/DL (0.2-1.0); BLOOD UREA NITROGEN 15 MG/DL (7-18); CALCIUM LEVEL 8.7 MG/DL (8.5-10.1); CARBON DIOXIDE LEVEL 23 MEQ/L (21-32); CHLORIDE LEVEL 111 MEQ/L (98-107); CREATININE FOR GFR 0.86 MG/DL (0.55-1.30); GLOMERULAR FILTRATION RATE > 60.0 (>60); GLUCOSE, FASTING 80 MG/DL (70-100); POTASSIUM SERUM 4.4 MEQ/L (3.5-5.1); SODIUM LEVEL 142 MEQ/L (136-145); TOTAL PROTEIN 6.9 GM/DL (6.4-8.2)
[2018-08-03] MEDS: TOPIRAMATE (TopAMAX) 25 MG TAB PO SCH (09:15)
[2018-08-03] MEDS: SERTRALINE HCL 50 MG TAB PO SCH (09:15)
[2018-08-03] MEDS: metFORMIN (GLUCOPHAGE) 1000 MG TABLET PO SCH (09:15)
[2018-08-03] MEDS: LITHIUM CARBONATE 450 MG **CR** TAB PO SCH (09:15)
[2018-08-03 09:20] VITALS: BP 126/66
[2018-08-03] MEDS: cloNIDine 0.1 MG TAB PO SCH (09:20)
--- NOTE | 2018-08-06 18:27 | MHDSPDOC ---
[facility] Discharge Summary Discharge Summary DATE OF ADMISSION: August 01, 2018 at 14:10 DATE OF DISCHARGE: August 03, 2018 at 11:45 DISCHARGE DIAGNOSES: 1. Schizoaffective disorder. 2. borderline personality disorder. 3. mild intellectual disability. REASON FOR ADMISSION: CHIEF COMPLAINT: Patient is a 22-year-old female, who, as per ED report: "Pt was brought to the ED by [employer] after being called by [facility] staff because pt cut her wrist as a suicide attempt. HISTORY OF PRESENT ILLNESS: Patient is a 22-year-old female, who, as per ED report: "Pt was brought to the ED by [employer] after being called by TLS staff because pt cut her wrist as a suicide attempt. Pt states that TLS staff called police because she cut her wrist as a suicide attempt. The cuts are superficial to her right wrist. Pt states that she continues to have SI with plans for cutting, strangling herself, & jumping off a bridge. Pt was physically & chemically restrained prior to this assessment because she became agitated, attempted to leave the unit, & then tied a pillowcase around her neck. Pt states that she has AH & VH of a little girl & the girl tells her to kill herself. Pt denies HI. She c/o depressed mood, anxiety, hopelessness, poor appetite, & excessive sleep. Pt states main trigger was "a bad phone call with my mom" but declines to explain further. Pt has had multiple prior admissions to [facility], last discharged on 07/07/18. She has a dx of schizoaffective d/o, borderline personality d/o, & intellectual disability. She has OP tx at [facility]. She is currently prescribed clonidine, lithium, zoloft, clozaril, topamax" CONSULTANTS INVOLVED: None TREATMENT AND PROGRESS ON THE UNIT : Upon admission to [facility] she started s creaming "get me out of here, I don't need to be here, I don't want to be here". She sat on the floor even when she knows that she can't do this at [facility]. Then she kept walking in the hallways screaming and yelling that she wanted to leave, she got close to the door and she was refusing to move from there until she was coded because she was very agitated. Before being coded, staff tried to de escalate, offered to give her PRN medications, provided support but she didn't calm down. During the code, she was physically restrained (4 point restraints) but approximately 2 hours after, she came osome of the restraints. Almost 1.5 hours later she was coded again for the same reasons. She was put on a sitter, because when she is coded she says she is suicidal, she is homicidal and she experiences auditory hallucinations but she is never seen responding to internal stimuli. The patient doesn't like or want to be alone. When she is with the sitter, she is never sad or depressed, she is never tearful or agitated, just th e opposite, she jokes, talks and laughs with the sitter. The patient has been abandoned by family members and she resents being lonely and going to hospitals but her behavior is difficult to handle for the staff at [facility] where she lives. She has attention seeking behavior and she wants someone to be watching her 27/09. The patient has borderline personality disorder and makes it very hard to be alone. A day after her admission she was getting agitated once again but with staff intervention she was able to calm down approximately one hour after it had started. Later on she was tld that she would be able to speak with her mother if she remained in behavioral control. She spoke with her mother and later on, she said thanks to me and at the same time she apologized. HOSPITAL COURSE: As above DISCHARGE ASSESSMENT: The patient was not suicidal, not homicidal and not psychotic. She didn't report side effects due to medications,not was she observed to develop side/ adverse effects. MENTAL STATUS EXAMINATION ON DISCHARGE: Patient is a 22-year old female, who is alert, more cooperative today, dressed in hospital clothes Speech: Is normal tone, volume, rhythm, spontaneous and fluent Language skills are fair. Thought processes including: concrete yet linear. Thought content: cognitive distortions but she denies suicidal or homicidal ideation Description of abnormal or psychotic thoughts: denies AV hallucinations, denies thought delusions, denies suicidal thoughts, denies homicidal thoughts Judgment: poor Insight: poor. Orientation: x 3. Recent and remote memory: intact. Attention span and concentration: fair. Language: average. Fund of knowledge: below average, patient has intellectual disability. Mood: euthymic. Affect: congruent with mood. MEDICATIONS ON DISCHARGE: Scheduled Amantadine HCl (Amantadine) 100 Mg Tab, 100 MG PO QHS, (Reported) Clonidine Hcl (Clonidine HCl) 0.1 Mg Tablet, 0.1 MG PO BID, (Reported) Clozapine (Clozapine) 100 Mg Tablet, 400 MG PO QHS, (Reported) Fluticasone Propion/Salmeterol (Airduo Respiclick 232-14 Mcg) 1 Each Aer.pow.ba, 1 PUFF INH BID, (Reported) Lactase (Lactaid) 3,000 Unit Tab, 6,000 UNIT PO ASDIRECTED, (Reported) TAKES 2 TABS ANY TIME PATIENT HAS DAIRY [place] Carbonate ([place] Carbonate ER) 450 Mg Tablet.er, 450 MG PO BID, (Reported) Metformin HCl (Metformin HCl) 500 Mg Tablet, 1,000 MG PO BID, (Reported) Norethindrone-E.estradiol-Iron (Junel Fe 1.5 mg-30 Mcg Tablet) 1 Tab Tab, 1 TAB PO QHS, (Reported) Quetiapine Fumarate (Quetiapine Fumarate) 25 Mg Tablet, 25 MG PO QHS, (Reported) Sertraline HCl (Sertraline HCl) 100 Mg Tablet, 150 MG PO DAILY, (Reported) Topiramate (Topiramate) 50 Mg Tablet, 50 MG PO BID, (Reported) Scheduled PRN Albuterol Sulfate (Ventolin Hfa) 108 Mcg/Act Aer, 2 PUFFS INH QID PRN for SHORTNESS OF BREATH, (Reported) Diphenhydramine HCl (Diphenhydramine HCl) 50 Mg Capsule, 100 MG PO QHS PRN for SLEEP, (Reported) Haloperidol (Haloperidol) 5 Mg Tablet, 10 MG PO Q8H PRN for ANXIETY/AGITATION, (Reported) Trazodone HCl (Trazodone HCl) 50 Mg Tablet, 50 MG PO QHS PRN for SLEEP, (Reported) PLAN/FOLLOWUP ARRANGEMENTS: Follow Up Care Education Label * Medical * Medical Follow Up [facility] * Established With This Provider Yes * Therapist Ramesh * Date Aug 08, 2018 * Time 13:40 * Address of Clinic or Practice [address] [place] [address] * Follow Up Care Education Label * Mental Health Appt 1 * [facility] * Established With This Provider Yes * Therapist Kita Han * Date Aug 10, 2018 * Time 11:00 * Address of Clinic or Practice [address] [place] [address] * Follow Up Care Education Label * Mental Health Appt 2 * [facility] * Established With This Provider Yes * Therapist Anna * Date Aug 09, 2018 * Time 13:00 * Address of Clinic or Practice [address] [place] [address] * The amount of time spent in the coordination of care for this patient was approximately 30 minutes. Vital Signs/I&Os Vital Signs Date Time Temp Pulse Resp B/P (MAP) Pulse Ox O2 Delivery O2 Flow Rate FiO2 08/03/18 11:15 Room Air 08/03/18 09:20 126/66 08/03/18 06:30 97.1 76 14 08/01/18 20:00 96 Medications Scheduled Amantadine HCl (Amantadine) 100 Mg Tab, 100 MG PO QHS, (Reported) Clonidine Hcl (Clonidine HCl) 0.1 Mg Tablet, 0.1 MG PO BID, (Reported) Clozapine (Clozapine) 100 Mg Tablet, 400 MG PO QHS, (Reported) Fluticasone Propion/Salmeterol (Airduo Respiclick 232-14 Mcg) 1 Each Aer.pow.ba, 1 PUFF INH BID, (Reported) Lactase (Lactaid) 3,000 Unit Tab, 6,000 UNIT PO ASDIRECTED, (Reported) TAKES 2 TABS ANY TIME PATIENT HAS DAIRY [place] Carbonate ([place] Carbonate ER) 450 Mg Tablet.er, 450 MG PO BID, (Reported) Metformin HCl (Metformin HCl) 500 Mg Tablet, 1,000 MG PO BID, (Reported) Norethindrone-E.estradiol-Iron (Junel Fe 1.5 mg-30 Mcg Tablet) 1 Tab Tab, 1 TAB PO QHS, (Reported) Quetiapine Fumarate (Quetiapine Fumarate) 25 Mg Tablet, 25 MG PO QHS, (Reported) Sertraline HCl (Sertraline HCl) 100 Mg Tablet, 150 MG PO DAILY, (Reported) Topiramate (Topiramate) 50 Mg Tablet, 50 MG PO BID, (Reported) Scheduled PRN Albuterol Sulfate (Ventolin Hfa) 108 Mcg/Act Aer, 2 PUFFS INH QID PRN for SHORTNESS OF BREATH, (Reported) Diphenhydramine HCl (Diphenhydramine HCl) 50 Mg Capsule, 100 MG PO QHS PRN for SLEEP, (Reported) Haloperidol (Haloperidol) 5 Mg Tablet, 10 MG PO Q8H PRN for ANXIETY/AGITATION, (Reported) Trazodone HCl (Trazodone HCl) 50 Mg Tablet, 50 MG PO QHS PRN for SLEEP, (Reported) Allergies Coded Allergies: lactose (Verified Allergy, Unknown, 06/26/18) JAYNE GUZMAN MD Aug 06, 2018 18:21
== END 2018-08-03 11:45 | disposition home or self-care (01) | DRG 750 ==
LOC: M ED 17:52 → M ED INP 08-01 14:10 → M PSY 08-01 14:54
PROVIDERS: ADMIT Psychiatry & Neurology Psychiatry; ATTEND Psychiatry & Neurology Psychiatry
DX: F25.0 Schizoaffective disorder, bipolar type (principal); E66.01 Morbid (severe) obesity due to excess calories; F70 Mild intellectual disabilities; F60.3 Borderline personality disorder; Z79.84 Long term (current) use of oral hypoglycemic drugs; Z79.899 Other long term (current) drug therapy; E73.9 Lactose intolerance, unspecified; G31.84 Mild cognitive impairment of uncertain or unknown etiology

== ENCOUNTER 2018-08-16 18:42 | Inpatient (IN) | payer MEDICAID, OTHER ==
[~2018-08-16] VITALS: Ht 152.4 cm; Wt 112.3 kg
[~2018-08-16 18:42] MED LIST changes: +QUET1TAB7 PO; -TRAZ-160 PO; +TRAZ-252 PO; +TRAZ1TAB10 PO; -TRAZO50TA PO
[2018-08-16 19:33] LABS: HEMATOCRIT 37.3 % (36.0-47.0); HEMOGLOBIN 11.9 g/dl (12.0-15.5); MEAN CORPUSCULAR HEMOGLOBIN 29.6 pg (27.0-33.0); MEAN CORPUSCULAR HGB CONC 31.9 g/dl (32.0-36.5); MEAN CORPUSCULAR VOLUME 92.8 fl (80.0-96.0); PLATELET COUNT, AUTOMATED 266 10^3/uL (150-450); RED BLOOD COUNT 4.02 10^6/uL (4.00-5.40); WHITE BLOOD COUNT 8.8 10^3/uL (4.0-10.0)
[2018-08-16 19:48] LABS: HCG, SERUM QUALITATIVE NEGATIVE (NEGATIVE)
[2018-08-16 19:58] LABS: ACETAMINOPHEN LEVEL < 2.0 UG/ML (10.0-30.0); ALBUMIN 3.5 GM/DL (3.2-5.2); ALT/SGPT 22 U/L (12-78); BILIRUBIN,DIRECT < 0.1 MG/DL (0.0-0.2); BILIRUBIN,TOTAL 0.2 MG/DL (0.2-1.0); BLOOD UREA NITROGEN 15 MG/DL (7-18); CALCIUM LEVEL 8.7 MG/DL (8.5-10.1); CARBON DIOXIDE LEVEL 24 MEQ/L (21-32); CHLORIDE LEVEL 109 MEQ/L (98-107); CREATININE FOR GFR 1.38 MG/DL (0.55-1.30); ETHYL ALCOHOL (ETHANOL) < 0.003 % (0.000-0.010); GLOMERULAR FILTRATION RATE 51.4 (>60); GLUCOSE, FASTING 85 MG/DL (70-100); LITHIUM LEVEL 0.55 MEQ/L (0.60-1.20); POTASSIUM SERUM 4.4 MEQ/L (3.5-5.1); SALICYLATE LEVEL < 1.7 MG/DL (5.0-30.0); SODIUM LEVEL 141 MEQ/L (136-145)
[2018-08-16 20:00] LABS: AMPHETAMINES LEVEL URINE NEGATIVE (NEGATIVE); BARBITURATES URINE NEGATIVE (NEGATIVE); BENZODIAZEPINES URINE NEGATIVE (NEGATIVE); CANNABINOIDS URINE NEGATIVE (NEGATIVE); COCAINE METABOLITE URINE NEGATIVE (NEGATIVE); METHADONE URINE NEGATIVE (NEGATIVE); OPIATES URINE NEGATIVE (NEGATIVE); PHENCYCLIDINE URINE NEGATIVE (NEGATIVE)
[2018-08-16] MEDS ORDERED: HALO10TA2 PO (23:03)
[2018-08-16] MEDS ORDERED: MAALOX 30 ML SUSP *UDC PO PRN (23:15)
[2018-08-16] MEDS ORDERED: ACETAMINOPHEN TAB 650MG DOSE (2X325MG) PO PRN (23:15)
[2018-08-16] MEDS ORDERED: MOM 30ML SUSPENSION UDC PO PRN (23:15)
[2018-08-16 23:58] VITALS: BP 146/94
[2018-08-17] VITALS (14 sets, daily range): BP systolic 123–144; BP diastolic 60–90
[2018-08-17] MEDS: traZODone 50 MG TAB PO PRN ×2 (00:21→21:58)
[2018-08-17] MEDS: metFORMIN (GLUCOPHAGE) 1000 MG TABLET PO SCH ×2 (08:24→17:05)
[2018-08-17] MEDS: LITHIUM CARBONATE 450 MG **CR** TAB PO SCH ×2 (08:27→21:57)
[2018-08-17] MEDS: TOPIRAMATE (TopAMAX) 25 MG TAB PO SCH ×2 (08:27→21:57)
[2018-08-17] MEDS: cloNIDine 0.1 MG TAB PO SCH ×2 (08:27→21:57)
[2018-08-17] MEDS ORDERED: SERTRALINE HCL 50 MG TAB PO SCH (09:00)
[2018-08-17] MEDS: HALOPERIDOL 10 MG TAB PO PRN (09:39)
[2018-08-17] MEDS: diphenhydrAMINE 50 MG CAP PO PRN (10:10)
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
[2018-08-17] MEDS ORDERED: hydrOXYzine 50 MG TAB PO PRN (10:45)
[2018-08-17] MEDS ORDERED: SERTRALINE HCL 50 MG TAB PO ONE (11:00)
[2018-08-17 11:10] LABS: BASO # 0.1 10^3/uL (0.0-0.2); BASO % 0.6 % (0.0-1.0); HEMATOCRIT 39.4 % (36.0-47.0); HEMOGLOBIN 12.6 g/dl (12.0-15.5); LYMPH # 2.5 10^3/uL (1.5-6.5); LYMPH % 32.9 % (24.0-44.0); MEAN CORPUSCULAR HEMOGLOBIN 29.8 pg (27.0-33.0); MEAN CORPUSCULAR VOLUME 93.1 fl (80.0-96.0); MONO # 0.6 10^3/uL (0.0-0.8); MONO % 7.9 % (0.0-5.0); NEUTROPHILS # 4.5 10^3/uL (1.8-7.7); NEUTROPHILS % 58.2 % (36.0-66.0); PLATELET COUNT, AUTOMATED 285 10^3/uL (150-450); RED BLOOD COUNT 4.23 10^6/uL (4.00-5.40); WHITE BLOOD COUNT 7.7 10^3/uL (4.0-10.0)
--- NOTE | 2018-08-17 11:43 | HPEPDOC ---
General Date of Admission Aug 16, 2018 at 23:03 Date of Service: Aug 17, 2018 Attending Physician: JEANETTE RAMEY MD Chief Complaint The patient is a 22-year-old female admitted with a reason for visit of Schizoaffective Disorder. Source: RN/ History of Present Illness Patient is a morbidly obese 22-year-old female, admitted on account of suicidal ideation. Patient has a past medical history significant for intellectual disability, prior suicidal ideation, depression. She was admitted by psychiatric team for assessment, evaluation and management of acute depressive episode with suicidal ideation. On assessment, she denies any chest pain, shortness of breath, weakness, abdominal pain, nausea, diarrhea. Home Medications Scheduled Clonidine Hcl (Clonidine HCl) 0.1 Mg Tablet, 0.1 MG PO BID, (Reported) Clozapine (Clozapine) 100 Mg Tablet, 400 MG PO QHS, (Reported) Fluticasone Propion/Salmeterol (Airduo Respiclick 232-14 Mcg) 1 Each Aer.pow.ba, 1 PUFF INH BID, (Reported) Lactase (Lactaid) 3,000 Unit Tab, 6,000 UNIT PO ASDIRECTED, (Reported) TAKES 2 TABS ANY TIME PATIENT HAS DAIRY [place] Carbonate ([place] Carbonate ER) 450 Mg Tablet.er, 450 MG PO BID, (Reported) Metformin HCl (Metformin HCl) 500 Mg Tablet, 1,000 MG PO BID, (Reported) Norethindrone-E.estradiol-Iron (Junel Fe 1.5 mg-30 Mcg Tablet) 1 Tab Tab, 1 TAB PO QHS, (Reported) Sertraline HCl (Sertraline HCl) 100 Mg Tablet, 150 MG PO DAILY, (Reported) Topiramate (Topiramate) 50 Mg Tablet, 50 MG PO QHS, (Reported) Scheduled PRN Albuterol Sulfate (Ventolin Hfa) 108 Mcg/Act Aer, 2 PUFFS INH QID PRN for SHORTNESS OF BREATH, (Reported) Diphenhydramine HCl (Diphenhydramine HCl) 50 Mg Capsule, 100 MG PO QHS PRN for SLEEP, (Reported) Haloperidol (Haloperidol) 10 Mg Tablet, 10 MG PO Q8H PRN for ANXIETY/AGITATION, (Reported) Trazodone HCl (Trazodone HCl) 50 Mg Tablet, 50 MG PO QHS PRN for SLEEP, (Reported) Allergies Coded Allergies: lactose (Verified Allergy, Unknown, 08/16/18) Past Medical History Medical History Intellectual disability Morbid obesity, BMI 49 Suicidal ideation Surgical History Umbarger tooth removal Family History Significant Family History: Diabetes (mother) Social History * Smoker: Denies Alcohol: Denies Drugs: denies A-FIB/CHADSVASC A-FIB History Current/History of A-Fib/PAF?: No Current PO Anticoag Therapy: No Review of Systems Other systems A pertinent 10 point ROS was completed, negative except as stated in the HPI Physical Examination Other physical findings General Exam: Obese, Alert, Cooperative, No Acute Distress Eye Exam: PERRLA, EOMI ENT Exam: Atraumatic, normocephalic, Mucous membr. moist/pink Neck Exam: Supple, no JVD, thyromegaly, +2 carotid pulse wo bruit Chest Exam: Clear to auscultation, Normal air movement; no Rales, Rhonchi, Wheezing Heart Exam: Positive: Rate Normal, Regular Rhythm, no edema, +pulses Abdomen Exam: +bowel sounds, Soft, non tender Skin Exam: Positive: Nl turgor and temperature; no Rash, Breakdown Neuro Exam: A/O x3 : Normal Speech Psych Exam: no Anxiety or agitation Vital Signs Vital Signs Date Time Temp Pulse Resp B/P (MAP) Pulse Ox O2 Delivery O2 Flow Rate FiO2 08/17/18 08:27 142/89 08/16/18 23:58 97.4 106 08/16/18 22:33 18 99 Room Air Laboratory Data Labs 24H Laboratory Tests 2 08/16/18 18:45: Nucleated Red Blood Cells % (auto) 0.0, Anion Gap 8, Glomerular Filtration Rate 51.4L, Calcium Level 8.7, Aspartate Amino Transf (AST/SGOT) 14, Alanine Aminotransferase (ALT/SGPT) 22, Alkaline Phosphatase 71, Total Bilirubin 0.2, Direct Bilirubin < 0.1, Total Protein 7.0, Albumin 3.5, Albumin/Globulin Ratio 1.00, Thyroid Stimulating Hormone (TSH) 1.480, Human Chorionic Gonadotropin, Qual NEGATIVE, Salicylates Level < 1.7L, Acetaminophen Level < 2.0L, [place] Level 0.55L, Ethyl Alcohol Level < 0.003 08/16/18 19:06: Urine Amphetamines Screen NEGATIVE, Urine Benzodiazepines Screen NEGATIVE, Urine Opiates Screen NEGATIVE, Urine Methadone Screen NEGATIVE, Urine Barbiturates Screen NEGATIVE, Urine Phencyclidine Screen NEGATIVE, Urine Cocaine Metabolite Screen NEGATIVE, Urine Cannabinoids Screen NEGATIVE 08/17/18 06:13: Bedside Glucose (Misc Panel) 87 08/17/18 10:52: Nucleated Red Blood Cells % (auto) 0.0, Immature Granulocyte % (Auto) 0.4, White Blood Count 7.7, Red Blood Count 4.23, Hemoglobin 12.6, Hematocrit 39.4, Mean Corpuscular Volume 93.1, Mean Corpuscular Hemoglobin 29.8, Mean Corpuscular Hemoglobin Concent 32.0, Red Cell Distribution Width 12.8, Platelet Count 285, Neutrophils (%) (Auto) 58.2, Lymphocytes (%) (Auto) 32.9, Monocytes (%) (Auto) 7.9H, Eosinophils (%) (Auto) 0.0, Basophils (%) (Auto) 0.6, Neutrophils # (Auto) 4.5, Lymphocytes # (Auto) 2.5, Monocytes # (Auto) 0.6, Eosinophils # (Auto) 0.0, Basophils # (Auto) 0.1 CBC/BMP Laboratory Tests 08/16/18 18:45 Red Blood Count 4.02, Mean Corpuscular Volume 92.8, Mean Corpuscular Hemoglobin 29.6, Mean Corpuscular Hemoglobin Concent 31.9 L, Red Cell Distribution Width 12.9 08/17/18 10:52 Red Blood Count 4.23, Mean Corpuscular Volume 93.1, Mean Corpuscular Hemoglobin 29.8, Mean Corpuscular Hemoglobin Concent 32.0, Red Cell Distribution Width 12.8, Neutrophils (%) (Auto) 58.2, Lymphocytes (%) (Auto) 32.9, Monocytes (%) (Auto) 7.9 H, Eosinophils (%) (Auto) 0.0, Basophils (%) (Auto) 0.6, Neutrophils # (Auto) 4.5, Lymphocytes # (Auto) 2.5, Monocytes # (Auto) 0.6, Eosinophils # (Auto) 0.0, Basophils # (Auto) 0.1 Assessment/Plan Morbid obesity Suicidal ideation Plan At this time patient has no underlying comorbidities requiring active medical evaluation and follow-up. Please reconsult medical team for any acute issues requiring management DVT prophylaxis not indicated at this time as she is frequently ambulatory Plan / VTE VTE Prophylaxis Ordered?: No VTE Exclusion Mechanical Proph: Low Risk for VTE MARIIA GARCIAP Aug 17, 2018 11:43
--- NOTE | 2018-08-17 12:33 | MHIR ---
General Date: Aug 17, 2018 Time Initiated: 12:29 Restraint Documentation Order/Evaluation FACE TO FACE: Yes PHYSICIAN ASSESSMENT: screaming she wants to kill her self and everyone here. biting and scratching b/l forearms, refusing to follow redirection. REASON FOR RESTRAINT: Patient poses imminent danger of harming self or others: biting and scratching b/l forearms, banging on teague and attempt to rip pt's off teague, threatening kill self and everyone here DE-ESCALATION INTERVENTIONS ATTEMPTED BEFORE USE OF RESTRAINTS: redirection, prn medication, staff support [MECHANICAL AND/OR CHEMICAL] RESTRAINTS USED: mechanical only LENGTH OF TIME ORDERED IN RESTRAINTS: When the patient is no longer a threat to themselves or others. no longer than 4hrs WHEN TO DISCONTINUE RESTRAINTS: When the patient is no longer a threat to themselves or others. Post evaluation of restraint due in 24 hours. MORALES STANTON DO Aug 17, 2018 12:33 pm
[2018-08-17] MEDS ORDERED: diphenhydrAMINE INJ 50MG/ML VIAL (J1200) IM STA ×2 (18:29→19:13)
[2018-08-17] MEDS ORDERED: HALOPERIDOL 5 MG/ML VIAL (J1630) IM STA ×2 (18:29→19:13)
[2018-08-17] MEDS ORDERED: LORazepam 2 MG/ML VIAL (J2060) IM STA ×2 (18:29→19:13)
--- NOTE | 2018-08-17 19:54 | IPN ---
DATE: 08/17/2018 Restraint documentation, mechanical and chemical. I was called by the nurse to advise me that the patient had to be placed in physical restraints because she tried to take the ID off of a staff member and attempt to try to leave the unit. At that point, the only way to control the patient was to put her in restraints. Since no other methods were effective, since the patient was trying to leave the unit. She had both mechanical and then chemical restraint. She was given Haldol 10 mg, Ativan 2 mg and Benadryl 50 mg intramuscular (IM). When I came to see the patient, the patient remained very agitated. She was yelling and stating that she was going to kill herself and that she had a method of doing it. I gave her another dose of Haldol 5 mg, Ativan 2 mg and Benadryl 50 mg intramuscular (IM) at that point. Because the patient continued to be very agitated and her aggressive and suicidal thoughts, the restraints will be continued until the patient is able to calm down and show that she can be safe to herself and others. MTDD
[2018-08-17] MEDS: cloZAPine 100 MG TAB (S0136) PO SCH (21:58)
[2018-08-18 07:00] VITALS: BP 124/78
[2018-08-18] MEDS: metFORMIN (GLUCOPHAGE) 1000 MG TABLET PO SCH (07:45)
[2018-08-18] MEDS: TOPIRAMATE (TopAMAX) 25 MG TAB PO SCH ×2 (08:38→21:08)
[2018-08-18] MEDS: LITHIUM CARBONATE 450 MG **CR** TAB PO SCH ×2 (08:38→21:07)
[2018-08-18] MEDS: SERTRALINE 100 MG TAB PO SCH (08:38)
[2018-08-18] MEDS: cloNIDine 0.1 MG TAB PO SCH ×2 (08:43→21:08)
--- NOTE | 2018-08-18 09:10 | MHPR ---
General Date: Aug 18, 2018 Time: 09:09 Post-Restraint Evaluation THE OUTCOME OF THE RESTRAINT: good EFFECTIVENESS OF THE RESTRAINT: Mechanical and/or chemical: mechanical Positive. ANY EVIDENCE THAT THE PATIENT WAS AFFECTED EMOTIONALLY: no ANY NEED FOR COUNSELING/ASSISTANCE: no CHANGES IN TREATMENT PLAN: behavioral plan RECOMMENDATIONS FOR FUTURE INCIDENTS:behavioral plan MORALES STANTON DO Aug 18, 2018 9:10 am
--- NOTE | 2018-08-18 09:21 | MHIPNPDOC ---
[facility] Progress Note Progress Note DATE OF SERVICE: 08/18/18 HISTORY: Patient is a 22 -year-old , female, with a history of schizoaffective d/o, borderline personality d/o, moderate intellectual disability, and multiple admission [facility] for SI in the past who was brought to ED by [facility] (place of residence) staff due to pt endorsing SI secondary to AH telling her to jump off a bridge and HI to strangle people with no specific target triggered by her mother currently being in the hospital and unable to talk to her for the past 4 days and being weened off her psychiatric meds too quickly by [facility] provider and d/c of seroquel. VITAL SIGNS: See below. NEW TEST RESULTS: Clozaril lvl pending, ANC 5156.8 wnl CURRENT MEDICATIONS: See below. MENTAL STATUS EXAMINATION: Unable to assess as pt asleep after requiring restraints x2 for agitation and self-harm yesterday. MSE per 08/17/18 General Appearance: well groomed, appears stated age, hospital scrubs/clothing Build: overweight Demeanor: average, withdrawn Eye Contact: poor Activity: average, other (cooperative) Behavior: cooperative, withdrawn Speech: clear, spontaneous, low in volume Mood: depressed, anxious Mood "I'm anxious" Affect: constricted, flat, appropriate, congruent, anxious Thought Process: logical/linear, depressed Thought Content (Delusions): none reported, denies SI, HI, AVH Thought Content (Other): none reported, appropriate, coherent Thought Content (Aggressive): none reported Perception (Hallucinations): none reported, other (denies AH today) Perception (Other): none reported Cognition (Impairment of): none reported Cognition(Intelligence Est.): borderline Oriented: Awake, Alert, Oriented times three Insight: poor Judgment: Poor Psychosis: Denies DIAGNOSES: Schizoaffective disorder, bipolar type borderline personality d/o moderate intellectual disability ASSESSMENT:Unable to assess as pt asleep after requiring restraints x2 for agitation and self-harm yesterday, biting and scratching b/l forearms, banging on teague and ripping papers off, screaming at staff, and refusing to follow redirection. MANAGEMENT PLAN: continue plan Clonidine 0.1 mg BID Clozaril 400 mg QHS Benadryl 100 mg Q6HP PRN PO anxiety/agitation Atarax 50 mg Q4HP PRN PO ANXIETY/AGITATION [place] 450 mg BID Zoloft 200 mg DAILY TopAMAX 50 mg BID Trazodone 50 mg QHSP PRN PO INSOMNIA TIME SPENT: 30 minutes. Vital Signs Vital Signs Date Time Temp Pulse Resp B/P (MAP) Pulse Ox O2 Delivery O2 Flow Rate FiO2 08/18/18 08:43 134/81 08/18/18 07:00 97.0 80 14 08/17/18 20:15 96 08/16/18 22:33 Room Air Laboratory Data 24H Labs Laboratory Tests 2 08/17/18 10:52: Immature Granulocyte % (Auto) 0.4, White Blood Count 7.7, Red Blood Count 4.23, Hemoglobin 12.6, Hematocrit 39.4, Mean Corpuscular Volume 93.1, Mean Corpuscular Hemoglobin 29.8, Mean Corpuscular Hemoglobin Concent 32.0, Red Cell Distribution Width 12.8, Platelet Count 285, Neutrophils (%) (Auto) 58.2, Lymphocytes (%) (Auto) 32.9, Monocytes (%) (Auto) 7.9H, Eosinophils (%) (Auto) 0.0, Basophils (%) (Auto) 0.6, Neutrophils # (Auto) 4.5, Lymphocytes # (Auto) 2.5, Monocytes # (Auto) 0.6, Eosinophils # (Auto) 0.0, Basophils # (Auto) 0.1, Nucleated Red B lood Cells % (auto) 0.0 08/17/18 17:04: Bedside Glucose (Misc Panel) 103 08/18/18 06:03: Bedside Glucose (Misc Panel) 74 CBC/BMP Laboratory Tests 08/17/18 10:52 Red Blood Count 4.23, Mean Corpuscular Volume 93.1, Mean Corpuscular Hemoglobin 29.8, Mean Corpuscular Hemoglobin Concent 32.0, Red Cell Distribution Width 12.8, Neutrophils (%) (Auto) 58.2, Lymphocytes (%) (Auto) 32.9, Monocytes (%) (Auto) 7.9 H, Eosinophils (%) (Auto) 0.0, Basophils (%) (Auto) 0.6, Neutrophils # (Auto) 4.5, Lymphocytes # (Auto) 2.5, Monocytes # (Auto) 0.6, Eosinophils # (Auto) 0.0, Basophils # (Auto) 0.1 Current Medications Current Medications Acetaminophen (Tylenol Tab) 650 mg Q6HP PRN PO HEADACHE or DISCOMFORT; Start 08/16/18 at 23:15 Al Hydrox/Mg Hydrox/Simethicone (Mylanta) 30 ml Q4HP PRN PO HEARTBU RN/INDIGESTION; Start 08/16/18 at 23:15 Albuterol Sulfate (Proventil, Ventolin Hfa) 2 puff QIDP PRN INH SHORTNESS OF BREATH; Start 08/16/18 at 23:15 Clonidine HCl (Catapres) 0.1 mg BID PO Last administered on 08/18/18 08:43; Start 08/17/18 at 09:00 Clozapine (Clozaril) 400 mg QHS PO Last administered on 08/17/18 21:58; Start 08/17/18 at 21:00 Diphenhydramine HCl (Benadryl) 50 mg STAT STAT IM Last administered on 08/17/18 18:48; Start 08/17/18 at 18:29; Stop 08/17/18 at 18:34; Status DC Diphenhydramine HCl (Benadryl) 50 mg STAT STAT IM Last administered on 08/17/18 19:21; Start 08/17/18 at 19:13; Stop 08/17/18 at 19:15; Status DC Diphenhydramine HCl (Benadryl) 100 mg Q6HP PRN PO anxiety/agitation Last administered on 08/17/18at 10:10; Start 08/17/18 at 10:00 Haloperidol (Haldol) 5 mg STAT STAT IM Last administered on 08/17/18 19:20; Start 08/17/18 at 19:13; Stop 08/17/18 at 19:15; Status DC Haloperidol (Haldol) 10 mg Q8HP PRN PO ANXIETY/AGITATION Last administered on 09:39; Start 08/16/18 at 23:15 Haloperidol (Haldol) 10 mg STAT STAT IM Last administered on 08/17/18 18:47; Start 08/17/18 at 18:29; Stop 08/17/18 at 18:34; Status DC Home Med (Med Rec Complete!) ASDIRECTED XX ; Start 08/16/18 at 23:15; Stop 08/16/18 at 23:15; Status DC Hydroxyzine HCl (Atarax) 50 mg Q4HP PRN PO ANXIETY/AGITATION; Start 08/17/18 at 10:45 [place] Carbonate (Eskalith-Cr) 450 mg BID PO Last administered on 08/18/18 08:38; Start 08/17/18 at 09:00 Lorazepam (Ativan) 2 mg STAT STAT IM Last administered on 08/17/18at 18:48; Start 08/17/18 at 18:29; Stop 08/17/18 at 18:34; Status DC Lorazepam (Ativan) 2 mg STAT STAT IM Last administered on 08/17/18 19:20; Start 08/17/18 at 19:13; Stop 08/17/18 at 19:15; Status DC Magnesium Hydroxide (Milk Of Magnesia) 30 ml DAILYPRN PRN PO CONSTIPATION; Start 08/16/18 at 23:15 Metformin HCl (Glucophage) 1,000 mg BID@0800,1800 PO Last administered on 08/18/18 07:45; Start 08/17/18 at 08:00 Sertraline HCl (Zoloft) 150 mg DAILY PO Last administered on 08/17/18 08:27; Start 08/17/18 at 09:00; Stop 08/17/18 at 10:42; Status DC Sertraline HCl (Zoloft) 200 mg DAILY PO Last administered on 08/18/18 08:38; Start 08/18/18 at 09:00 Topiramate (TopAMAX) 50 mg BID PO Last administered on 08/18/18 08:38; Start 08/17/18 at 09:00 Trazodone HCl (Desyrel) 50 mg QHSP PRN PO INSOMNIA Last administered on 08/17/18at 21:58; Start 08/16/18 at 23:15 Allergies Coded Allergies: lactose (Verified Allergy, Unknown, 08/16/18) MORALES STANTON DO Aug 18, 2018 9:21 am
[2018-08-18 18:40] VITALS: BP 131/83
[2018-08-18] MEDS: ALBUTEROL 90 MCG/ACT 8GM HFA INHALER INH PRN (21:07)
[2018-08-18] MEDS: cloZAPine 100 MG TAB (S0136) PO SCH (21:08)
[2018-08-18] MEDS: traZODone 50 MG TAB PO PRN (21:08)
[2018-08-19 06:53] VITALS: BP 132/88
[2018-08-19] MEDS: TOPIRAMATE (TopAMAX) 25 MG TAB PO SCH ×2 (08:07→21:19)
[2018-08-19] MEDS: LITHIUM CARBONATE 450 MG **CR** TAB PO SCH ×2 (08:08→21:19)
[2018-08-19] MEDS: cloNIDine 0.1 MG TAB PO SCH ×2 (08:08→21:20)
[2018-08-19] MEDS: SERTRALINE 100 MG TAB PO SCH (08:08)
--- NOTE | 2018-08-19 08:31 | MHIPNPDOC ---
[facility] Progress Note Progress Note DATE OF SERVICE: 08/19/18 HISTORY: 22-year-old female with numerous admissions. Stating she was taken off Seroquel too quickly, but states she has been on Clozaril for 3 years. She does not remember any other neuroleptics that she's been on and states Clozuril does not work very well. She states she is still having auditory hallucinations and needs one-to-one because otherwise she is uncomfortable. Some days ago she was in restraint due to explosive outbursts VITAL SIGNS: See below. NEW TEST RESULTS:. CBCs will be monitored. CURRENT MEDICATIONS: See below. MENTAL STATUS EXAMINATION: Patient is a 22-year old female, who is, presently stating she has auditory hallucinations, but she does not clarified nor described. Speech: Is normal. Language skills are, intact. Thought processes including: No gross abnormalities noted, although patient claims to have auditory hallucinations. Thought content:. No gross abnormalities. Abstract reasoning, and computation: Able to abstract. Description of associations:. No loose associations. Description of abnormal or psychotic thoughts:. Describes that she is having auditory hallucinations, but does not describe them well. Judgment: Poor. Insight: Poor Orientation:. Full 3. Recent and remote memory:. No obvious disturbance. Attention span and concentration:, Intact. Language: Above. Fund of knowledge: Reasonable for her age. Mood: Euthymic. Affect:, Congruent. DIAGNOSES: 1., Atypical psychotic disorder. 2., Borderline personality disorder. 3. Stressors of living situation. ASSESSMENT:. Patient states Clozuril does not work well. Further investigation needed and strategy to prevent repetitive admissions MANAGEMENT PLAN: As above. TIME SPENT:, 35 minutes. Vital Signs Vital Signs Date Time Temp Pulse Resp B/P (MAP) Pulse Ox O2 Delivery O2 Flow Rate FiO2 08/19/18 08:08 126/87 08/19/18 06:53 97.5 82 14 08/17/18 20:15 96 08/16/18 22:33 Room Air Current Medications Current Medications Acetaminophen (Tylenol Tab) 650 mg Q6HP PRN PO HEADACHE or DISCOMFORT; Start 08/16/18 at 23:15 Al Hydrox/Mg Hydrox/Simethicone (Mylanta) 30 ml Q4HP PRN PO HE ARTBURN/INDIGESTION; Start 08/16/18 at 23:15 Albuterol Sulfate (Proventil, Ventolin Hfa) 2 puff QIDP PRN INH SHORTNESS OF BREATH Last administered on 08/18/18 21:07; Start 08/16/18 at 23:15 Clonidine HCl (Catapres) 0.1 mg BID PO Last administered on 08/19/18 08:08; Start 08/17/18 at 09:00 Clozapine (Clozaril) 400 mg QHS PO Last administered on 08/18/18 21:08; Start 08/17/18 at 21:00 Diphenhydramine HCl (Benadryl) 50 mg STAT STAT IM Last administered on 08/17/18 18:48; Start 08/17/18 at 18:29; Stop 08/17/18 at 18:34; Status DC Diphenhydramine HCl (Benadryl) 50 mg STAT STAT IM Last administered on 08/17/18 19:21; Start 08/17/18 at 19:13; Stop 08/17/18 at 19:15; Status DC Diphenhydramine HCl (Benadryl) 100 mg Q6HP PRN PO anxiety/agitation Last ad ministered on 08/17/18at 10:10; Start 08/17/18 at 10:00 Haloperidol (Haldol) 5 mg STAT STAT IM Last administered on 08/17/18 19:20; Start 08/17/18 at 19:13; Stop 08/17/18 at 19:15; Status DC Haloperidol (Haldol) 10 mg Q8HP PRN PO ANXIETY/AGITATION Last administered on 08/17/18 09:39; Start 08/16/18 at 23:15 Haloperidol (Haldol) 10 mg STAT STAT IM Last administered on 08/17/18 18:47; Start 08/17/18 at 18:29; Stop 08/17/18 at 18:34; Status DC Home Med (Med Rec Complete!) ASDIRECTED XX ; Start 08/16/18 at 23:15; Stop 08/16/18 at 23:15; Status DC Hydroxyzine HCl (Atarax) 50 mg Q4HP PRN PO ANXIETY/AGITATION Last administered on 08/18/18 13:54; Start 08/17/18 at 10:45 [place] Carbonate (Eskalith-Cr) 450 mg BID PO Last administered on 08/19/18 08:08; Start 08/17/18 at 09:00 Lorazepam (Ativan) 2 mg STAT STAT IM Last administered on 08/17/18 18:48; Start 08/17/18 at 18:29; Stop 08/17/18 at 18:34; Status DC Lorazepam (Ativan) 2 mg STAT STAT IM Last administered on 08/17/18 19:20; Start 08/17/18 at 19:13; Stop 08/17/18 at 19:15; Status DC Magnesium Hydroxide (Milk Of Magnesia) 30 ml DAILYPRN PRN PO CONSTIPATION; Start 08/16/18 at 23:15 Metformin HCl (Glucophage) 1,000 mg BID@0800,1800 PO Last administered on 08/18/18 07:45; Start 08/17/18 at 08:00; Stop 08/18/18 at 10:36; Status DC Sertraline HCl (Zoloft) 150 mg DAILY PO Last administered on 08/17/18 08:27; Start 08/17/18 at 09:00; Stop 08/17/18 at 10:42; Status DC Sertraline HCl (Zoloft) 200 mg DAILY PO Last administered on 08/19/18 08:08; Start 08/18/18 at 09:00 Topiramate (TopAMAX) 50 mg BID PO Last administered on 08/19/18 08:07; Start 08/17/18 at 09:00 Trazodone HCl (Desyrel) 50 mg QHSP PRN PO INSOMNIA Last administered on 08/18/18 21:08; Start 08/16/18 at 23:15 Allergies Coded Allergies: lactose (Verified Allergy, Unknown, 08/16/18) MYESHA RAMIREZ MD Aug 19, 2018 08:31
[2018-08-19] MEDS: diphenhydrAMINE 50 MG CAP PO PRN (17:53)
[2018-08-19] MEDS: HALOPERIDOL 10 MG TAB PO PRN (17:53)
[2018-08-19 18:00] VITALS: BP 120/76
[2018-08-19] MEDS: cloZAPine 100 MG TAB (S0136) PO SCH (21:19)
[2018-08-19] MEDS: ALBUTEROL 90 MCG/ACT 8GM HFA INHALER INH PRN (21:19)
[2018-08-19] MEDS: traZODone 50 MG TAB PO PRN (21:19)
[2018-08-20] VITALS (9 sets, daily range): BP systolic 122–161; BP diastolic 74–99
--- NOTE | 2018-08-20 07:27 | MHIPNPDOC ---
[facility] Progress Note Progress Note DATE OF SERVICE: 08/20/18 HISTORY: 22-year-old female with numerous admissions uncontrollable temper outbursts and aggression demonstrating signs of conduct disorder and developing aspects of borderline personality. VITAL SIGNS: See below. NEW TEST RESULTS:, None. CURRENT MEDICATIONS: See below. MENTAL STATUS EXAMINATION: Patient is a 22-year old female, who is, explosive, and easily irritable. Speech: Is. Intact. Language skills are. No gross disturbance. Thought processes including:, Labile, explosive, irritable, angry, difficult to reason with rude. Thought content: As above. Abstract reasoning, and computation:, Limited Description of associations:. No loose associations. Description of abnormal or psychotic thoughts:, Has been reported but not seen presently. Judgment: Poor. Insight:. Poor. Orientation: Intact 3. Recent and remote memory:. Essentially intact. Attention span and concentration: Poor. Language:. As above. Fund of knowledge: Full. Mood:, Labile. Affect:, Angry. DIAGNOSES: 1. Conduct disorder. 2., Borderline personality traits. . ASSESSMENT: As above MANAGEMENT PLAN:. Placement, use of medications and milieu need to be discussed once again. TIME SPENT: 35 minutes. Vital Signs Vital Signs Date Time Temp Pulse Resp B/P (MAP) Pulse Ox O2 Delivery O2 Flow Rate FiO2 08/20/18 06:36 99.3 72 16 131/83 (99) 08/17/18 20:15 96 08/16/18 22:33 Room Air Current Medications Current Medications Acetaminophen (Tylenol Tab) 650 mg Q6HP PRN PO HEADACHE or DISCOMFORT; Start 08/16/18 at 23:15 Al Hydrox/Mg Hydrox/Simethicone (Mylanta) 30 ml Q4HP PRN PO HEARTBURN/INDIGESTION; Start 08/16/18 at 23:15 Albuterol Sulfate (Proventil, Ventolin Hfa) 2 puff QIDP PRN INH SHORTNESS OF BREATH Last administered on 08/19/18at 21:19; Start 08/16/18 at 23:15 Clonidine HCl (Catapres) 0.1 mg BID PO Last administered on 08/19/18at 21:20; Start 08/17/18 at 09:00 Clozapine (Clozaril) 400 mg QHS PO Last administered on 08/19/18at 21:19; Start 08/17/18 at 21:00 Diphenhydramine HCl (Benadryl) 50 mg STAT STAT IM Last administered on 08/17/18 18:48; Start 08/17/18 at 18:29; Stop 08/17/18 at 18:34; Status DC Diphenhydramine HCl (Benadryl) 50 mg STAT STAT IM Last administered on 08/17/18at 19:21; Start 08/17/18 at 19:13; Stop 08/17/18 at 19:15; Status DC Diphenhydramine HCl (Benadryl) 100 mg Q6HP PRN PO anxiety/agitation Last administered on 08/19/18at 17:53; Start 08/17/18 at 10:00 Haloperidol (Haldol) 5 mg STAT STAT IM Last administered on 08/17/18 19:20; Start 08/17/18 at 19:13; Stop 08/17/18 at 19:15; Status DC Haloperidol (Haldol) 10 mg Q8HP PRN PO ANXIETY/AGITATION Last administered on 08/19/18at 17:53; Start 08/16/18 at 23:15 Haloperidol (Haldol) 10 mg STAT STAT IM Last administered on 08/17/18at 18:47; Start 08/17/18 at 18:29; Stop 08/17/18 at 18:34; Status DC Home Med (Med Rec Complete!) ASDIRECTED XX ; Start 08/16/18 at 23:15; Stop 08/16/18 at 23:15; Status DC Hydroxyzine HCl (Atarax) 50 mg Q4HP PRN PO ANXIETY/AGITATION Last administered on 08/18/18at 13:54; Start 08/17/18 at 10:45 [place] Carbonate (Eskalith-Cr) 450 mg BID PO Last administered on 08/19/18 21:19; Start 08/17/18 at 09:00 Lorazepam (Ativan) 2 mg STAT STAT IM Last administered on 08/17/18 18:48; Start 08/17/18 at 18:29; Stop 08/17/18 at 18:34; Status DC Lorazepam (Ativan) 2 mg STAT STAT IM Last administered on 08/17/18at 19:20; Start 08/17/18 at 19:13; Stop 08/17/18 at 19:15; Status DC Magnesium Hydroxide (Milk Of Magnesia) 30 ml DAILYPRN PRN PO CONSTIPATION; Start 08/16/18 at 23:15 Metformin HCl (Glucophage) 1,000 mg BID@0800,1800 PO Last administered on 08/18/18at 07:45; Start 08/17/18 at 08:00; Stop 08/18/18 at 10:36; Status DC Sertraline HCl (Zoloft) 150 mg DAILY PO Last administered on 08/17/18at 08:27; Start 08/17/18 at 09:00; Stop 08/17/18 at 10:42; Status DC Sertraline HCl (Zoloft) 200 mg DAILY PO Last administered on 08/19/18at 08:08; Start 08/18/18 at 09:00 Topiramate (TopAMAX) 50 mg BID PO Last administered on 08/19/18at 21:19; Start 08/17/18 at 09:00 Trazodone HCl (Desyrel) 50 mg QHSP PRN PO INSOMNIA Last administered on 08/19/18at 21:19; Start 08/16/18 at 23:15 Allergies Coded Allergies: lactose (Verified Allergy, Unknown, 08/16/18) MYESHA RAMIREZ MD Aug 20, 2018 07:26
[2018-08-20] MEDS: TOPIRAMATE (TopAMAX) 25 MG TAB PO SCH ×2 (08:30→21:05)
[2018-08-20] MEDS: LITHIUM CARBONATE 450 MG **CR** TAB PO SCH ×2 (08:30→21:04)
[2018-08-20] MEDS: cloNIDine 0.1 MG TAB PO SCH ×2 (08:30→21:04)
[2018-08-20] MEDS: SERTRALINE 100 MG TAB PO SCH (08:30)
[2018-08-20] MEDS: cloZAPine 100 MG TAB (S0136) PO SCH (21:04)
[2018-08-20] MEDS: traZODone 50 MG TAB PO PRN (21:04)
[2018-08-20] MEDS: ALBUTEROL 90 MCG/ACT 8GM HFA INHALER INH PRN (21:04)
[2018-08-21 06:16] VITALS: BP 129/85
[2018-08-21] MEDS: LITHIUM CARBONATE 450 MG **CR** TAB PO SCH ×2 (09:07→20:50)
[2018-08-21] MEDS: cloNIDine 0.1 MG TAB PO SCH ×2 (09:07→20:50)
[2018-08-21] MEDS: TOPIRAMATE (TopAMAX) 25 MG TAB PO SCH ×2 (09:07→20:50)
[2018-08-21] MEDS: SERTRALINE 100 MG TAB PO SCH (09:07)
[2018-08-21] MEDS: diphenhydrAMINE 50 MG CAP PO PRN (17:11)
[2018-08-21] MEDS: HALOPERIDOL 10 MG TAB PO PRN (17:11)
[2018-08-21 18:10] VITALS: BP 140/80
[2018-08-21] MEDS: ALBUTEROL 90 MCG/ACT 8GM HFA INHALER INH PRN (20:50)
[2018-08-21] MEDS: traZODone 50 MG TAB PO PRN (20:50)
[2018-08-21] MEDS: cloZAPine 100 MG TAB (S0136) PO SCH (20:50)
[2018-08-22 06:39] VITALS: BP 141/81
[2018-08-22] MEDS: TOPIRAMATE (TopAMAX) 25 MG TAB PO SCH ×2 (08:52→21:05)
[2018-08-22] MEDS: SERTRALINE 100 MG TAB PO SCH (08:52)
[2018-08-22] MEDS: cloNIDine 0.1 MG TAB PO SCH ×2 (08:52→21:05)
[2018-08-22] MEDS: LITHIUM CARBONATE 450 MG **CR** TAB PO SCH ×2 (08:53→21:06)
--- NOTE | 2018-08-22 09:33 | MHIPNPDOC ---
[facility] Progress Note Progress Note DATE OF SERVICE: 08/22/18 HISTORY: Patient is a 22 -year-old , female, with a history of schizoaffective d/o, borderline personality d/o, moderate intellectual disability, and multiple admission [facility] for SI in the past who was brought to ED by [facility] (place of residence) staff due to pt endorsing SI secondary to AH telling her to jump off a bridge and HI to strangle people with no specific target triggered by her mother currently being in the hospital and unable to talk to her for the past 4 days and being weened off her psychiatric meds too quickly by [facility] provider and d/c of seroquel. VITAL SIGNS: See below. NEW TEST RESULTS: Clozaril lvl pending, ANC 5156.8 wnl CURRENT MEDICATIONS: See below. MENTAL STATUS EXAMINATION: General Appearance: well groomed, appears stated age, hospital scrubs/clothing Build: overweight Demeanor: average Eye Contact: good Activity: average, other (cooperative) Behavior: cooperative Speech: clear, spontaneous, low in volume Mood: euthymic Mood "good" Affect: euthymic, appropriate, congruent Thought Process: logical/linear Thought Content (Delusions): none reported, denies SI, HI, AVH Thought Content (Other): none reported, appropriate, coherent Thought Content (Aggressive): none reported Perception (Hallucinations): none reported, other (denies AH today) Perception (Other): none reported Cognition (Impairment of): none reported Cognition(Intelligence Est.): borderline Oriented: Awake, Alert, Oriented times three Insight: poor Judgment: Poor Psychosis: Denies DIAGNOSES: Schizoaffective disorder, bipolar type borderline personality d/o moderate intellectual disability ASSESSMENT:Pt seen and states she's doing better today and feels safe to come of f 1:1 sitter, denies SI/HI. Cooperative and pleasant this morning and socializing in day room. Behaving well since yesterday afternoon. Denies depression and psychosis. States she feels ready to return to [facility] tomorrow. MANAGEMENT PLAN: continue plan Clonidine 0.1 mg BID Clozaril 400 mg QHS Benadryl 100 mg Q6HP PRN PO anxiety/agitation Atarax 50 mg Q4HP PRN PO ANXIETY/AGITATION [place] 450 mg BID Zoloft 200 mg DAILY TopAMAX 50 mg BID Trazodone 50 mg QHSP PRN PO INSOMNIA TIME SPENT: 30 minutes. Vital Signs Vital Signs Date Time Temp Pulse Resp B/P (MAP) Pulse Ox O2 Delivery O2 Flow Rate FiO2 08/22/18 08:52 141/81 08/22/18 08:27 Room Air 08/22/18 06:39 97.2 67 16 08/20/18 18:32 98 Current Medications Current Medications Acetaminophen (Tylenol Tab) 650 mg Q6HP PRN PO HEADACHE or DISCOMFORT; Start 08/16/18 at 23:15 Al Hydrox/Mg Hydrox/Simethicone (Mylanta) 30 ml Q4HP PRN PO HEARTBURN/INDIGESTION; Start 08/16/18 at 23:15 Albuterol Sulfate (Proventil, Ventolin Hfa) 2 puff QIDP PRN INH SHORTNESS OF BREATH Last administered on 08/21/18 20:50; Start 08/16/18 at 23:15 Clonidine HCl (Catapres) 0.1 mg BID PO Last administered on 08/22/18at 08:52; Start 08/17/18 at 09:00 Clozapine (Clozaril) 400 mg QHS PO Last administered on 08/21/18at 20:50; Start 08/17/18 at 21:00 Diphenhydramine HCl (Benadryl) 50 mg STAT STAT IM Last administered on 08/17/18at 18:48; Start 08/17/18 at 18:29; Stop 08/17/18 at 18:34; Status DC Diphenhydramine HCl (Benadryl) 50 mg STAT STAT IM Last administered on at 19:21; Start 08/17/18 at 19:13; Stop 08/17/18 at 19:15; Status DC Diphenhydramine HCl (Benadryl) 100 mg Q6HP PRN PO anxiety/agitation Last administered on 08/21/18at 17:11; Start 08/17/18 at 10:00 Haloperidol (Haldol) 5 mg STAT STAT IM Last administered on 08/17/18 19:20; Start 08/17/18 at 19:13; Stop 08/17/18 at 19:15; Status DC Haloperidol (Haldol) 10 mg Q8HP PRN PO ANXIETY/AGITATION Last administered on 08/21/18at 17:11; Start 08/16/18 at 23:15 Haloperidol (Haldol) 10 mg STAT STAT IM Last administered on 08/17/18 18:47; Start 08/17/18 at 18:29; Stop 08/17/18 at 18:34; Status DC Home Med (Med Rec Complete!) ASDIRECTED XX ; Start 08/16/18 at 23:15; Stop 08/16/18 at 23:15; Status DC Hydroxyzine HCl (Atarax) 50 mg Q4HP PRN PO ANXIETY/AGITATION Last administered on 08/18/18 13:54; Start 08/17/18 at 10:45 [place] Carbonate (Eskalith-Cr) 450 mg BID PO Last administered on 08/22/18 08:53; Start 08/17/18 at 09:00 Lorazepam (Ativan) 2 mg STAT STAT IM Last administered on 08/17/18 18:48; S tart 08/17/18 at 18:29; Stop 08/17/18 at 18:34; Status DC Lorazepam (Ativan) 2 mg STAT STAT IM Last administered on 08/17/18at 19:20; Start 08/17/18 at 19:13; Stop 08/17/18 at 19:15; Status DC Magnesium Hydroxide (Milk Of Magnesia) 30 ml DAILYPRN PRN PO CONSTIPATION; Start 08/16/18 at 23:15 Metformin HCl (Glucophage) 1,000 mg BID@0800,1800 PO Last administered on 08/18/18at 07:45; Start 08/17/18 at 08:00; Stop 08/18/18 at 10:36; Status DC Sertraline HCl (Zoloft) 150 mg DAILY PO Last administered on 08/17/18 08:27; Start 08/17/18 at 09:00; Stop 08/17/18 at 10:42; Status DC Sertraline HCl (Zoloft) 200 mg DAILY PO Last administered on 08/22/18 08:52; Start 08/18/18 at 09:00 Topiramate (TopAMAX) 50 mg BID PO Last administered on 08/22/18 08:52; Start 08/17/18 at 09:00 Trazodone HCl (Desyrel) 50 mg QHSP PRN PO INSOMNIA Last administered on 08/21/18at 20:50; Start 08/16/18 at 23:15 Allergies Coded Allergies: lactose (Verified Allergy, Unknown, 08/16/18) MORALES STANTON DO Aug 22, 2018 9:33 am
[2018-08-22 10:39] LABS: CLOZAPINE 1 516 ng/mL (350-650); CLOZAPINE 2 358 ng/mL (Not Estab.); CLOZAPINE 3 874 ng/mL (.)
[2018-08-22] MEDS: HALOPERIDOL 10 MG TAB PO PRN (11:10)
[2018-08-22] MEDS: diphenhydrAMINE 50 MG CAP PO PRN (11:10)
[2018-08-22 17:50] VITALS: BP 137/82
[2018-08-22 18:00] VITALS: BP 137/82
[2018-08-22] MEDS: ALBUTEROL 90 MCG/ACT 8GM HFA INHALER INH PRN (21:04)
[2018-08-22] MEDS: cloZAPine 100 MG TAB (S0136) PO SCH (21:04)
[2018-08-22] MEDS: traZODone 50 MG TAB PO PRN (21:05)
[2018-08-23 06:39] VITALS: BP 133/87
[2018-08-23] MEDS ORDERED: SERT-138 PO (08:58)
[2018-08-23] MEDS ORDERED: TOPI50TA9 PO (08:58)
[2018-08-23] MEDS ORDERED: TRAZ-186 PO (08:58)
[2018-08-23] MEDS ORDERED: CLONI1TA PO (08:58)
[2018-08-23] MEDS ORDERED: DIPH50CA PO (08:58)
[2018-08-23] MEDS ORDERED: LITH45TASA PO (08:58)
[2018-08-23] MEDS ORDERED: CLOZ100T2 PO (08:58)
[2018-08-23] MEDS ORDERED: HALO10TA2 PO (08:58)
--- NOTE | 2018-08-23 08:59 | MHDSPDOC ---
[facility] Discharge Summary Discharge Summary DATE OF ADMISSION: Aug 16, 2018 at 11:03 pm DATE OF DISCHARGE: Aug 23, 2018 1. MDD w/psychotic/mixed features 2. Unspecified Trauma and Stressor related D/O 3. Borderline Intellectual Functioning 4. Borderline Personality D/O REASON FOR ADMISSION: Patient is a 22 -year-old , female, with a h istory of schizoaffective d/o, borderline personality d/o, moderate intellectual disability, and multiple admission [facility] for SI in the past who was brought to ED by [facility] (place of residence) staff due to pt endorsing SI secondary to AH telling her to jump off a bridge and HI to strangle people with no specific target triggered by her mother currently being in the hospital and unable to talk to her for the past 4 days and being weened off her psychiatric meds too quickly by [facility] provider and d/c of ritika. CONSULTANTS INVOLVED: none TEST RESULTS: Clozaril lvl 874 therapeutic, ANC 5156.8 wnl TREATMENT AND PROGRESS ON THE UNIT : Pt was admitted to [facility], seen for psychiatric assessment and restarted on her outpatient psychiatric medications clozaril, haldol, trazodone, zoloft increased to 200mg daily, lithium, topomax, and clonidine that she tolerated well. Pt did require tow chemical and physical restraints during her stay but was cooperative on the unit and her behavioral symptoms improved after codes with staff support and redirection. Pt was placed on a 1:1 sitter during her stay for SI with d/c of 1:1 sitter one day prior to d/c when pt able to say she was no longer having SI and felt safe to be without a sitter. Pt found her medications beneficial and tolerated them well. She attended groups daily and during her stay. Her symptoms improved with treatment. On day of discharge she denied depression, anxiety, insomnia, SI/HI, hallucinations, delusions. She was discharged back to [facility] after [facility] meeting with follow-up at [facility]. She felt safe for discharge. DISCHARGE ASSESSMENT: Patient seen states her mood is good and she's looking forward to returning to [facility] today. She denies SI/HI, AH and her behavioral symptoms are improved. She is less attention seeking. She is tolerating her medications well and feels they're beneficial. She denies depression, anxiety, insomnia, SI/HI, hallucinations, delusions. She feels safe to be discharged back to [facility] today. MENTAL STATUS EXAMINATION ON DISCHARGE: General Appearance: clean, appears stated age, own clothing Build: overweight Demeanor: calm, pleasant, child-like Eye Contact: poor Activity: calm Behavior: cooperative, child-like Speech: reg rate, rhythm, volume Mood: euthymic Mood "good" Affect: euthymic, full Thought Process: logical/linear, concrete Thought Content (Delusions): Denies SI/HI, AVH Thought Content (Other): none reported Thought Content (Aggressive): none reported Perception (Hallucinations): none reported Perception (Other): none reported Cognition (Impairment of): none reported Cognition(Intelligence Est.): borderline Oriented: Awake, Alert, Oriented times three Insight: limited Judgment: limited Psychosis: Denies MEDICATIONS ON DISCHARGE: Clonidine 0.1 mg BID Clozaril 400 mg QHS Benadryl 100 mg Q6HP PRN PO anxiety/agitation Atarax 50 mg Q4HP PRN PO ANXIETY/AGITATION [place] 450 mg BID Zoloft 200 mg DAILY TopAMAX 50 mg BID Trazodone 50 mg QHSP PRN PO INSOMNIA haldol 10mg bid PLAN/FOLLOWUP ARRANGEMENTS: D/c back to [facility] with follow-up at [facility]. The amount of time spent in the coordination of care for this patient was approximately 30 minutes. Vital Signs/I&Os Vital Signs Date Time Temp Pulse Resp B/P (MAP) Pulse Ox O2 Delivery O2 Flow Rate FiO2 08/23/18 06:39 97.8 71 16 133/87 (102) 08/22/18 08:27 Room Air 08/20/18 18:32 98 Medications Scheduled Clonidine Hcl (Clonidine HCl) 0.1 Mg Tablet, 0.1 MG PO BID, (Reported) Clozapine (Clozapine) 100 Mg Tablet, 400 MG PO QHS, (Reported) Fluticasone Propion/Salmeterol (Airduo Respiclick 232-14 Mcg) 1 Each Aer.pow.ba, 1 PUFF INH BID, (Reported) Lactase (Lactaid) 3,000 Unit Tab, 6,000 UNIT PO ASDIRECTED, (Reported) TAKES 2 TABS ANY TIME PATIENT HAS DAIRY [place] Carbonate ([place] Carbonate ER) 450 Mg Tablet.er, 450 MG PO BID, (Reported) Metformin HCl (Metformin HCl) 500 Mg Tablet, 1,000 MG PO BID, (Reported) Norethindrone-E.estradiol-Iron (Junel Fe 1.5 mg-30 Mcg Tablet) 1 Tab Tab, 1 TAB PO QHS, (Reported) Sertraline HCl (Sertraline HCl) 100 Mg Tablet, 150 MG PO DAILY, (Reported) Topiramate (Topiramate) 50 Mg Tablet, 50 MG PO QHS, (Reported) Scheduled PRN Albuterol Sulfate (Ventolin Hfa) 108 Mcg/Act Aer, 2 PUFFS INH QID PRN for SHORTNESS OF BREATH, (Reported) Diphenhydramine HCl (Diphenhydramine HCl) 50 Mg Capsule, 100 MG PO QHS PRN for SLEEP, (Reported) Haloperidol (Haloperidol) 10 Mg Tablet, 10 MG PO Q8H PRN for ANXIETY/AGITATION, (Reported) Trazodone HCl (Trazodone HCl) 50 Mg Tablet, 50 MG PO QHS PRN for SLEEP, (R eported) Allergies Coded Allergies: lactose (Verified Allergy, Unknown, 08/16/18) MORALES STANTON DO Aug 23, 2018 8:59 am
[2018-08-23] MEDS: TOPIRAMATE (TopAMAX) 25 MG TAB PO SCH (09:14)
[2018-08-23] MEDS: LITHIUM CARBONATE 450 MG **CR** TAB PO SCH (09:14)
[2018-08-23] MEDS: SERTRALINE 100 MG TAB PO SCH (09:15)
[2018-08-23 09:16] VITALS: BP 132/93
[2018-08-23] MEDS: cloNIDine 0.1 MG TAB PO SCH (09:16)
[2018-08-23] MEDS ORDERED: HALO10TA20 PO (09:59)
== END 2018-08-23 10:15 | disposition home or self-care (01) | DRG 751 ==
LOC: M ED 18:42 → M ED INP 23:03 → M PSY 23:48
PROVIDERS: ADMIT Psychiatry & Neurology Psychiatry; ATTEND Psychiatry & Neurology Psychiatry
DX: F32.3 Major depressive disorder, single episode, severe with psychotic features (principal); Z68.42 Body mass index [BMI] 45.0-49.9, adult; E66.01 Morbid (severe) obesity due to excess calories; F43.9 Reaction to severe stress, unspecified; F60.3 Borderline personality disorder; R41.83 Borderline intellectual functioning; Z79.899 Other long term (current) drug therapy

== ENCOUNTER 2018-09-05 17:55 | Inpatient (IN) | payer MEDICAID, OTHER ==
[~2018-09-05] VITALS: Ht 152.4 cm; Wt 111.0 kg
[~2018-09-05 17:55] MED LIST changes: -TOPI25CA PO; +TOPI25CA3 PO
[2018-09-05 18:49] LABS: HEMATOCRIT 38.6 % (36.0-47.0); HEMOGLOBIN 12.3 g/dl (12.0-15.5); MEAN CORPUSCULAR HEMOGLOBIN 29.5 pg (27.0-33.0); MEAN CORPUSCULAR HGB CONC 31.9 g/dl (32.0-36.5); MEAN CORPUSCULAR VOLUME 92.6 fl (80.0-96.0); PLATELET COUNT, AUTOMATED 313 10^3/uL (150-450); RED BLOOD COUNT 4.17 10^6/uL (4.00-5.40)
[2018-09-05 19:15] LABS: ACETAMINOPHEN LEVEL < 2.0 UG/ML (10.0-30.0); ALBUMIN 3.7 GM/DL (3.2-5.2); ALT/SGPT 19 U/L (12-78); BILIRUBIN,DIRECT < 0.1 MG/DL (0.0-0.2); BILIRUBIN,TOTAL 0.1 MG/DL (0.2-1.0); BLOOD UREA NITROGEN 14 MG/DL (7-18); CALCIUM LEVEL 8.7 MG/DL (8.5-10.1); CARBON DIOXIDE LEVEL 23 MEQ/L (21-32); CHLORIDE LEVEL 108 MEQ/L (98-107); CREATININE FOR GFR 1.09 MG/DL (0.55-1.30); ETHYL ALCOHOL (ETHANOL) < 0.003 % (0.000-0.010); GLOMERULAR FILTRATION RATE > 60.0 (>60); GLUCOSE, FASTING 109 MG/DL (70-100); SALICYLATE LEVEL < 1.7 MG/DL (5.0-30.0); SODIUM LEVEL 140 MEQ/L (136-145); TOTAL PROTEIN 7.2 GM/DL (6.4-8.2)
[2018-09-05 19:19] LABS: HCG, SERUM QUALITATIVE NEGATIVE (NEGATIVE)
[2018-09-05 19:53] LABS: AMPHETAMINES LEVEL URINE NEGATIVE (NEGATIVE); BARBITURATES URINE NEGATIVE (NEGATIVE); BENZODIAZEPINES URINE NEGATIVE (NEGATIVE); CANNABINOIDS URINE NEGATIVE (NEGATIVE); COCAINE METABOLITE URINE NEGATIVE (NEGATIVE); METHADONE URINE NEGATIVE (NEGATIVE); OPIATES URINE NEGATIVE (NEGATIVE); PHENCYCLIDINE URINE NEGATIVE (NEGATIVE)
[2018-09-05] MEDS ORDERED: OLANZapine ORAL DISINTEGRATING TAB 5MG PO PRN (20:30)
[2018-09-05] MEDS ORDERED: MAALOX 30 ML SUSP *UDC PO PRN (20:30)
[2018-09-05 20:45] VITALS: BP 132/71
[2018-09-05] MEDS ORDERED: CLONI1TA PO (21:00)
[2018-09-05] MEDS ORDERED: LITH45TASA PO (21:00)
[2018-09-05] MEDS ORDERED: TOPI50TA9 PO (21:00)
[2018-09-05] MEDS ORDERED: DIPH50CA PO (21:00)
[2018-09-05] MEDS ORDERED: TRAZ-252 PO (21:00)
[2018-09-05] MEDS ORDERED: CLOZ100T2 PO (21:00)
[2018-09-05] MEDS ORDERED: HALO10TA20 PO (21:00)
[2018-09-05] MEDS ORDERED: SERT-138 PO (21:00)
[2018-09-05 22:00] VITALS: BP 141/96
[2018-09-05] MEDS ORDERED: ALBUTEROL 90 MCG/ACT 8GM HFA INHALER INH PRN (22:15)
[2018-09-05] MEDS: LITHIUM CARBONATE 450 MG **CR** TAB PO SCH (22:30)
[2018-09-05] MEDS: cloNIDine 0.1 MG TAB PO SCH (22:30)
[2018-09-05] MEDS: HALOPERIDOL 10 MG TAB PO SCH (22:30)
[2018-09-05] MEDS: TOPIRAMATE (TopAMAX) 25 MG TAB PO SCH (22:30)
[2018-09-05] MEDS: diphenhydrAMINE 50 MG CAP PO PRN (22:30)
[2018-09-05] MEDS: metFORMIN (GLUCOPHAGE) 500 MG TAB PO SCH (22:31)
[2018-09-05] MEDS: cloZAPine 100 MG TAB (S0136) PO SCH (22:31)
[2018-09-06] VITALS (16 sets, daily range): BP systolic 121–162; BP diastolic 61–83
[2018-09-06 07:09] LABS: BASO # 0.1 10^3/uL (0.0-0.2); BASO % 0.6 % (0.0-1.0); HEMATOCRIT 41.7 % (36.0-47.0); HEMOGLOBIN 13.2 g/dl (12.0-15.5); LYMPH # 3.9 10^3/uL (1.5-6.5); LYMPH % 49.1 % (24.0-44.0); MEAN CORPUSCULAR HEMOGLOBIN 30.2 pg (27.0-33.0); MEAN CORPUSCULAR HGB CONC 31.7 g/dl (32.0-36.5); MEAN CORPUSCULAR VOLUME 95.4 fl (80.0-96.0); MONO # 0.6 10^3/uL (0.0-0.8); MONO % 7.4 % (0.0-5.0); NEUTROPHILS # 3.3 10^3/uL (1.8-7.7); NEUTROPHILS % 42.5 % (36.0-66.0); PLATELET COUNT, AUTOMATED 299 10^3/uL (150-450); RED BLOOD COUNT 4.37 10^6/uL (4.00-5.40); WHITE BLOOD COUNT 7.9 10^3/uL (4.0-10.0)
--- NOTE | 2018-09-06 07:56 | MHHPEPDOC ---
[facility] History & Physical History and Physical Note entered in error, please referr to Dr. Cornejo's H/P Vital Signs Vital Signs Date Time Temp Pulse Resp B/P (MAP) Pulse Ox O2 Delivery O2 Flow Rate FiO2 09/06/18 06:35 98.0 69 16 156/67 (96) 09/05/18 21:03 97 Room Air Laboratory Data 24H Labs Laboratory Tests 2 09/05/18 18:21: Nucleated Red Blood Cells % (auto) 0.0, Anion Gap 9, Glomerular Filtration Rate > 60.0, Calcium Level 8.7, Aspartate Amino Transf (AST/SGOT) 18, Alanine Aminotransferase (ALT/SGPT) 19, Alkaline Phosphatase 71, Total Bilirubin 0.1L, Direct Bilirubin < 0.1, Total Protein 7.2, Albumin 3.7, Albumin/Globulin Ratio 1.06, Thyroid Stimulating Hormone (TSH) 2.810, Human Chorionic Gonadotropin, Qual NEGATIVE, Salicylates Level < 1.7L, Acetaminophen Level < 2.0L, Ethyl Alcohol Level < 0.003 09/05/18 18:48: Urine Amphetamines Screen NEGATIVE, Urine Benzodiazepines Screen NEGATIVE, Urine Opiates Screen NEGATIVE, Urine Methadone Screen NEGATIVE, Urine Barbiturates Screen NEGATIVE, Urine Phencyclidine Screen NEGATIVE, Urine Cocaine Metabolite Screen NEGATIVE, Urine Cannabinoids Screen NEGATIVE 09/06/18 06:57: Nucleated Red Blood Cells % (auto) 0.0, Immature Granulocyte % (Auto) 0.4, White Blood Count 7.9, Red Blood Count 4.37, Hemoglobin 13.2, Hematocrit 41.7, Mean Corpuscular Volume 95.4, Mean Corpuscular Hemoglobin 30.2, Mean Corpuscular Hemoglobin Concent 31.7L, Red Cell Distribution Width 12.4, Platelet Count 299, Neutrophils (%) (Auto) 42.5, Lymphocytes (%) (Auto) 49.1H, Monocytes (%) (Auto) 7.4H, Eosinophils (%) (Auto) 0.0, Basophils (%) (Auto) 0.6, Neutrophils # (Auto) 3.3, Lymphocytes # (Auto) 3.9, Monocytes # (Auto) 0.6, Eosinophils # (Auto) 0.0, Basophils # (Auto) 0.1, [place] Level 0.88 CBC/BMP Laboratory Tests 09/05/18 18:21 Red Blood Count 4.17, Mean Corpuscular Volume 92.6, Mean Corpuscular Hemoglobin 29.5, Mean Corpuscular Hemoglobin Concent 31.9 L, Red Cell Distribution Width 12.5 09/06/18 06:57 Red Blood Count 4.37, Mean Corpuscular Volume 95.4, Mean Corpuscular Hemoglobin 30.2, Mean Corpuscular Hemoglobin Concent 31.7 L, Red Cell Distribution Width 12.4, Neutrophils (%) (Auto) 42.5, Lymphocytes (%) (Auto) 49.1 H, Monocytes (%) (Auto) 7.4 H, Eosinophils (%) (Auto) 0.0, Basophils (%) (Auto) 0.6, Neutrophils # (Auto) 3.3, Lymphocytes # (Auto) 3.9, Monocytes # (Auto) 0.6, Eosinophils # (Auto) 0.0, Basophils # (Auto) 0.1 Medications Scheduled Clonidine Hcl (Clonidine HCl) 0.1 Mg Tablet, 0.1 MG PO BID, (Reported) Clozapine (Clozapine) 100 Mg Tablet, 400 MG PO QHS, (Reported) Fluticasone Propion/Salmeterol (Airduo Respiclick 232-14 Mcg) 1 Each Aer.pow.ba, 1 PUFF INH BID, (Reported) Haloperidol (Haloperidol) 10 Mg Tablet, 10 MG PO BID, (Reported) Lactase (Lactaid) 3,000 Unit Tab, 6,000 UNIT PO ASDIRECTED, (Reported) TAKES 2 TABS ANY TIME PATIENT HAS DAIRY [place] Carbonate ([place] Carbonate ER) 450 Mg Tablet.er, 450 MG PO BID, (Reported) Metformin HCl (Metformin HCl) 500 Mg Tablet, 1,000 MG PO BID, (Reported) Norethindrone-E.estradiol-Iron (Junel Fe 1.5 mg-30 Mcg Tablet) 1 Tab Tab, 1 TAB PO QHS, (Reported) Sertraline HCl (Sertraline HCl) 100 Mg Tablet, 200 MG PO DAILY, (Reported) Topiramate (Topiramate) 50 Mg Tablet, 50 MG PO QHS, (Reported) Scheduled PRN Albuterol Sulfate (Ventolin Hfa) 108 Mcg/Act Aer, 2 PUFFS INH QID PRN for SHORTNESS OF BREATH, (Reported) Diphenhydramine HCl (Diphenhydramine HCl) 50 Mg Capsule, 100 MG PO QHS PRN for SLEEP, (Reported) Trazodone HCl (Trazodone HCl) 50 Mg Tablet, 50 MG PO QHS PRN for SLEEP, (Repor salomon) Allergies Coded Allergies: lactose (Verified Allergy, Unknown, 08/16/18) LORETTA ARCE DO Sep 06, 2018 07:56
[2018-09-06] MEDS: cloNIDine 0.1 MG TAB PO SCH ×2 (08:25→21:30)
[2018-09-06] MEDS: SERTRALINE 100 MG TAB PO SCH (08:25)
[2018-09-06] MEDS: metFORMIN (GLUCOPHAGE) 500 MG TAB PO SCH ×2 (08:25→21:31)
[2018-09-06] MEDS: HALOPERIDOL 10 MG TAB PO SCH ×2 (08:26→21:29)
[2018-09-06] MEDS: LITHIUM CARBONATE 450 MG **CR** TAB PO SCH ×2 (08:26→21:30)
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
[2018-09-06] MEDS ORDERED: ALBUTEROL 90 MCG/ACT 8GM HFA INHALER INH PRN (15:15)
--- NOTE | 2018-09-06 15:21 | HPEPDOC ---
General Date of Admission Sep 05, 2018 at 20:18 Date of Service: Sep 06, 2018 Chief Complaint The patient is a 22-year-old female admitted with a reason for visit of Suicide Attempt. Source: Patient, Old records Exam Limitations: Mild cognitive slowing Severity: Mild History of Present Illness 22-year-old female with PMH of Morbid obesity, Asthma, lactose allergy, Schizoaffective disorder, borderline personality d/o, moderate intellectual disability, and multiple admission [facility] for SI in the past admitted on account of suicidal ideation and definite plans. She was admitted by psychiatric team for assessment, evaluation and management of acute depressive episode with suicidal ideation. She is being examined here for her medical history and physical. She denies any medical complaints this morning Home Medications Scheduled Clonidine Hcl (Clonidine HCl) 0.1 Mg Tablet, 0.1 MG PO BID, (Reported) Clozapine (Clozapine) 100 Mg Tablet, 400 MG PO QHS, (Reported) Fluticasone Propion/Salmeterol (Airduo Respiclick 232-14 Mcg) 1 Each Aer.pow.ba, 1 PUFF INH BID, (Reported) Haloperidol (Haloperidol) 10 Mg Tablet, 10 MG PO BID, (Reported) Lactase (Lactaid) 3,000 Unit Tab, 6,000 UNIT PO ASDIRECTED, (Reported) TAKES 2 TABS ANY TIME PATIENT HAS DAIRY [place] Carbonate ([place] Carbonate ER) 450 Mg Tablet.er, 450 MG PO BID, (Reported) Metformin HCl (Metformin HCl) 500 Mg Tablet, 1,000 MG PO BID, (Reported) Norethindrone-E.estradiol-Iron (Junel Fe 1.5 mg-30 Mcg Tablet) 1 Tab Tab, 1 TAB PO QHS, (Reported) Sertraline HCl (Sertraline HCl) 100 Mg Tablet, 200 MG PO DAILY, (Reported) Topiramate (Topiramate) 50 Mg Tablet, 50 MG PO QHS, (Reported) Scheduled PRN Albuterol Sulfate (Ventolin Hfa) 108 Mcg/Act Aer, 2 PUFFS INH QID PRN for SHORTN ESS OF BREATH, (Reported) Diphenhydramine HCl (Diphenhydramine HCl) 50 Mg Capsule, 100 MG PO QHS PRN for SLEEP, (Reported) Trazodone HCl (Trazodone HCl) 50 Mg Tablet, 50 MG PO QHS PRN for SLEEP, (Reported) Allergies Coded Allergies: lactose (Verified Allergy, Unknown, 08/16/18) Past Medical History Medical History Morbid obesity, Asthma, IFG, Schizoaffective disorder, borderline personality disorder, mild intellectual disability, depression with suicidal ideas Surgical History wisdom tooth removal Family History Significant Family History: Diabetes (mother) Social History * Smoker: Denies Alcohol: Denies Drugs: denies A-FIB/CHADSVASC A-FIB History Current/History of A-Fib/PAF?: No Review of Systems Constitutional: Denies: Chills, Fever, Night Sweats Eyes: Denies: Pain, Vision change ENT: Denies: Head Aches, Ear Pain, Dysphagia Skin: Denies: Rash, Lesions, Breakdown Pulmonary: Denies: Dyspnea, Cough Cardiovascular: Denies: Chest Pain, Palpitations, Orthopnea, Paroxysmal Noc. Dyspnea, Lt Headedness Gastrointestinal: Denies: Nausea, Vomiting, Abdominal Pain, Diarrhea Genitourinary: Denies: Dysuria, Frequency, Incontinence, Retention Musculoskeletal: Denies: Neck Pain, Back Pain, Joint Pain, Muscle Pain, Spasms Neurological: Denies: Weakness, Numbness, Change in speech, Confusion Physical Examination General Exam: Positive: Alert, Cooperative, No Acute Distress Eye Exam: Positive: PERRLA, Conjunctiva & lids normal, EOMI; Negative: Sclera icteric ENT Exam: Positive: Atraumatic, Mucous membr. moist/pink, Pharynx Normal Neck Exam: Positive: Supple; Negative: JVD, thyromegaly Chest Exam: Positive: Clear to auscultation, Normal air movement Heart Exam: Positive: Rate Normal, Regular Rhythm, Normal S1, Normal S2; Negative: Murmurs, Rubs Abdomen Exam: Positive: Normal bowel sounds, Soft; Negative: Tenderness, Hepatospenomegaly Extremity Exam: Positive: Normal pulses; Negative: Clubbing, Cyanosis, Edema Skin Exam: Positive: Nl turgor and temperature; Negative: Breakdown, Lesion Neuro Exam: Positive: Normal Speech, Strength at 5/5 X4 ext, Normal Tone Vital Signs Vital Signs Date Time Temp Pulse Resp B/P (MAP) Pulse Ox O2 Delivery O2 Flow Rate FiO2 09/06/18 08:25 136/72 09/06/18 06:35 98.0 69 16 09/05/18 21:03 97 Room Air Laboratory Data Labs 24H Laboratory Tests 2 09/05/18 18:21: Nucleated Red Blood Cells % (auto) 0.0, Anion Gap 9, Glomerular Filtration Rate > 60.0, Calcium Level 8.7, Aspartate Amino Transf (AST/SGOT) 18, Alanine Aminotransferase (ALT/SGPT) 19, Alkaline Phosphatase 71, Total Bilirubin 0.1L, Direct Bilirubin < 0.1, Total Protein 7.2, Albumin 3.7, Albumin/Globulin Ratio 1.06, Thyroid Stimulating Hormone (TSH) 2.810, Human Chorionic Gonadotropin, Qual NEGATIVE, Salicylates Level < 1.7L, Acetaminophen Level < 2.0L, Ethyl Alcohol Level < 0.003 09/05/18 18:48: Urine Amphetamines Screen NEGATIVE, Urine Benzodiazepines Screen NEGATIVE, Urine Opiates Screen NEGATIVE, Urine Methadone Screen NEGATIVE, Urine Barbiturates Screen NEGATIVE, Urine Phencyclidine Screen NEGATIVE, Urine Cocaine Metabolite Screen NEGATIVE, Urine Cannabinoids Screen NEGATIVE 09/06/18 06:57: Nucleated Red Blood Cells % (auto) 0.0, Immature Granulocyte % (Auto) 0.4, White Blood Count 7.9, Red Blood Count 4.37, Hemoglobin 13.2, Hematocrit 41.7, Mean Corpuscular Volume 95.4, Mean Corpuscular Hemoglobin 30.2, Mean Corpuscular Hemoglobin Concent 31.7L, Red Cell Distribution Width 12.4, Platelet Count 299, Neutrophils (%) (Auto) 42.5, Lymphocytes (%) (Auto) 49.1H, Monocytes (%) (Auto) 7.4H, Eosinophils (%) (Auto) 0.0, Basophils (%) (Auto) 0.6, Neutrophils # (Auto) 3.3, Lymphocytes # (Auto) 3.9, Monocytes # (Auto) 0.6, Eosinophils # (Auto) 0.0, Basophils # (Auto) 0.1, [place] Level 0.88 CBC/BMP Laboratory Tests 09/05/18 18:21 Red Blood Count 4.17, Mean Corpuscular Volume 92.6, Mean Corpuscular Hemoglobin 29.5, Mean Corpuscular Hemoglobin Concent 31.9 L, Red Cell Distribution Width 12.5 09/06/18 06:57 Red Blood Count 4.37, Mean Corpuscular Volume 95.4, Mean Corpuscular Hemoglobin 30.2, Mean Corpuscular Hemoglobin Concent 31.7 L, Red Cell Distribution Width 12.4, Neutrophils (%) (Auto) 42.5, Lymphocytes (%) (Auto) 49.1 H, Monocytes (%) (Auto) 7.4 H, Eosinophils (%) (Auto) 0.0, Basophils (%) (Auto) 0.6, Neutrophils # (Auto) 3.3, Lymphocytes # (Auto) 3.9, Monocytes # (Auto) 0.6, Eosinophils # (Auto) 0.0, Basophils # (Auto) 0.1 Assessment/Plan Asthma. not in any exacerbation at present Says has an inhalers at home will continue advair and albuterol prn will make it available Morbid obesity with IFG on metformin Last A1c was 4.4 Psychiatric issues as per psychiatry DVT prophylaxis not indicated at this time as she is frequently ambulatory Plan / VTE VTE Prophylaxis Ordered?: No (ambulatory) VTE Exclusion Pharmacological: At Low Risk for VTE GANESH PAZ MD Sep 06, 2018 11:31
[2018-09-06] MEDS ORDERED: HALOPERIDOL 5 MG/ML VIAL (J1630) IM STA (17:56)
[2018-09-06] MEDS ORDERED: diphenhydrAMINE INJ 50MG/ML VIAL (J1200) IM STA (17:56)
[2018-09-06] MEDS ORDERED: LORazepam 2 MG/ML VIAL (J2060) IM STA (17:56)
--- NOTE | 2018-09-06 20:17 | MHIR ---
General Date: Sep 06, 2018 Time Initiated: 18:14 Restraint Documentation Order/Evaluation FACE TO FACE: yes. PHYSICIAN ASSESSMENT: pt was tying sheet around neck to harm self, yelling and screaming at staff, refusing to follow staff redirection and support, refusing p rn employee health REASON FOR RESTRAINT: Patient poses imminent danger of harming self or others: pt was tying sheet around neck to harm self, yelling and screaming at staff, refusing to follow staff redirection and support, refusing prn medication DE-ESCALATION INTERVENTIONS ATTEMPTED BEFORE USE OF RESTRAINTS: taff redirection and support, prn medication [MECHANICAL AND/OR CHEMICAL] RESTRAINTS USED: mechanical and chemical: haldol 10mg IM, ativan 2mg IM, benadryl 50mg IM LENGTH OF TIME ORDERED IN RESTRAINTS: 2 hours WHEN TO DISCONTINUE RESTRAINTS: When the patient is no longer a threat to themselves or others Post evaluation of restraint due in 24 hours. MORALES STANTON DO Sep 06, 2018 8:17 pm
[2018-09-06] MEDS: ADVAIR HFA 115/21MCG INHALER INH SCH (21:27)
[2018-09-06] MEDS: diphenhydrAMINE 50 MG CAP PO PRN (21:29)
[2018-09-06] MEDS: TOPIRAMATE (TopAMAX) 25 MG TAB PO SCH (21:31)
[2018-09-06] MEDS: cloZAPine 100 MG TAB (S0136) PO SCH (21:31)
[2018-09-07] VITALS (8 sets, daily range): BP systolic 119–152; BP diastolic 60–82
[2018-09-07] MEDS: ADVAIR HFA 115/21MCG INHALER INH SCH ×2 (09:20→21:10)
[2018-09-07] MEDS: metFORMIN (GLUCOPHAGE) 500 MG TAB PO SCH ×2 (09:20→21:13)
[2018-09-07] MEDS: LITHIUM CARBONATE 450 MG **CR** TAB PO SCH ×2 (09:20→21:11)
[2018-09-07] MEDS: HALOPERIDOL 10 MG TAB PO SCH ×2 (09:20→21:11)
[2018-09-07] MEDS: SERTRALINE 100 MG TAB PO SCH (09:20)
[2018-09-07] MEDS: cloNIDine 0.1 MG TAB PO SCH ×2 (09:25→21:13)
--- NOTE | 2018-09-07 14:55 | MHIPN ---
DATE OF SERVICE: 09/07/2018 The patient today was lying in her bed, but she was fully alert. She has been one to one observation level because of her chronic voicing of suicidal thoughts. I asked the patient how she was doing, and she basically did not look at me and stated "I don't want to talk to you." MENTAL STATUS EXAMINATION: Unable to do a mental status examination because the patient is not willing to talk to me. DIAGNOSES: Schizoaffective disorder, bipolar type borderline personality d/o moderate intellectual disability TREATMENT PLAN: We will continue to observe the patient on one-to-one observation level because of her ongoing suicidal thoughts and gestures, and we will continue to titrate the medications as indicated. SARINA
[2018-09-07] MEDS ORDERED: diphenhydrAMINE INJ 50MG/ML VIAL (J1200) IM STA (15:34)
[2018-09-07] MEDS ORDERED: LORazepam 2 MG/ML VIAL (J2060) IM STA (15:34)
[2018-09-07] MEDS ORDERED: HALOPERIDOL 5 MG/ML VIAL (J1630) IM STA (15:34)
--- NOTE | 2018-09-07 17:03 | MHIR ---
DATE: 09/07/2018 MECHANICAL AND MEDICATION RESTRAINT NOTE The patient apparently got really agitated. She has been on one-to-one observation level because she has been complaining of being suicidal, so she ran into the bathroom and would not come out of the bathroom. The staff removed the door from the bathroom and then she started to bite herself and she stood up on top of the register and it was very difficult for staff to bring her down from the register. So, at that point, the patient was felt to be a danger to herself and possibly to others and she was placed in 4-point restraints. She also was given the following medications: Haldol 10 mg, Ativan 2 mg and Benadryl 50 mg intramuscular (IM). When I went to see the patient, the patient basically told me that she did not want to talk to me. She was calm at the time, however, and the plan is to remove patient from the restraints when she no longer felt to be a danger to herself or anybody else. The staff did attempt support and redirection. They actually offered her a as needed medication before she was placed in restraints and she refused to take any medications that was offered to her and of course, she has already been on one-to-one observation level. SARINA
[2018-09-07] MEDS: TOPIRAMATE (TopAMAX) 25 MG TAB PO SCH (21:11)
[2018-09-07] MEDS: diphenhydrAMINE 50 MG CAP PO PRN (21:11)
[2018-09-07] MEDS: cloZAPine 100 MG TAB (S0136) PO SCH (21:14)
[2018-09-08 05:56] VITALS: BP 118/67
--- NOTE | 2018-09-08 08:47 | MHIPNPDOC ---
[facility] Progress Note Progress Note DATE OF SERVICE: 09/08/18 HISTORY: Patient is a 22 -year-old , female, with a history of schizoaffective d/o, borderline personality d/o, moderate intellectual disability, and multiple admission [facility] for SI in the past who was brought to ED by [facility] (place of residence) staff due to pt endorsing SI w/plan secondary to peer pressures per ED. Per ED, pt had an argument with fellow residents at [facility] that made her feel like no one liked her there so tied a plastic bag around her neck to strangle herself that she stated was a suicide attempt. Per ED pt e ndorsed depressed mood, anxiety, hopelessness, helplessness and SI. She denied AH in the ED. VITAL SIGNS: See below. NEW TEST RESULTS: See below. CURRENT MEDICATIONS: See below. MENTAL STATUS EXAMINATION: General Appearance: well groomed, appears stated age, hospital scrubs/clothing laying in be attempting to ignore me Build: overweight Demeanor: average, withdrawn, other (child-like) Eye Contact: poor Activity: slowed Behavior: cooperative, withdrawn Speech: low in volume, impoverished Mood: depressed, anxious, irritable Mood "I'm going to kill myself." Affect: constricted, flat, congruent, anxious, other (reactive behaviorally) Thought Process: logical/linear, concrete, depressed, slow Thought Content (Delusions): other (SI with no plan or intent, denies HI and AVH, is very impulsive and reactive behaviorally mostly for attention) Thought Content (Other): coherent Thought Content (Aggressive): none reported Perception (Hallucinations): none reported Perception (Other): none reported Cognition (Impairment of): none reported Cognition(Intelligence Est.): borderline Oriented: Awake, Alert, Oriented times three Insight: poor Judgment: Poor Psychosis: Denies DIAGNOSES: Schizoaffective disorder, bipolar type borderline personality d/o moderate intellectual disability ASSESSMENT:Pt coded Tuesday and Tuesday evening for attempting to harm self by tying bed sheet around neck, screaming and yelling at staff, refusing to listen to staff redirection and support. She's laying in bed with 1:1 sitter present stating "I'm going to kill myself... I don't feel say" and encouraged to focus on having a good day which she agrees to try. She's compliant on her medications. Denies HI, hallucinations, delusions. MANAGEMENT PLAN: continue plan and behavioral contract. medications: Clonidine 0.1 mg BID Clozaril 400 mg QHS Benadryl 100 mg Q6HP PRN PO anxiety/agitation Atarax 50 mg Q4HP PRN PO ANXIETY/AGITATION [place] 450 mg BID Zoloft 200 mg DAILY TopAMAX 50 mg BID Trazodone 50 mg QHSP PRN PO INSOMNIA haldol 10mg bid TIME SPENT: 30 minutes. Vital Signs Vital Signs Date Time Temp Pulse Resp B/P (MAP) Pulse Ox O2 Delivery O2 Flow Rate FiO2 09/08/18 05:56 97.2 77 16 118/67 (84) 09/07/18 17:05 97 09/05/18 21:03 Room Air Current Medications Current Medications Acetaminophen (Tylenol Tab) 650 mg Q6HP PRN PO HEADACHE or DISCOMFORT; Start 09/05/18 at 20:30 Al Hydrox/Mg Hydrox/Simethicone (Mylanta) 30 ml Q4HP PRN PO HEARTBURN/INDIGESTION; Start 09/05/18 at 20:30 Albuterol Sulfate (Proventil, Ventolin Hfa) 2 puff Q4HP PRN INH SHORTNESS OF BREATH; Start 09/06/18 at 15:15 Albuterol Sulfate (Proventil, Ventolin Hfa) 2 puff QID PRN INH SHORTNESS OF BREATH; Start 09/05/18 at 22:15; Stop 09/06/18 at 15:27; Status DC Clonidine HCl (Catapres) 0.1 mg BID PO Last administered on 09/07/18at 21:13; Start 09/05/18 at 21:00 Clozapine (Clozaril) 400 mg QHS PO Last administered on 09/07/18at 21:14; Start 09/05/18 at 21:00 Diphenhydramine HCl (Benadryl) 50 mg STAT STAT IM Last administered on 09/06/18at 18:12; Start 09/06/18 at 17:56; Stop 09/06/18 at 17:58; Status DC Diphenhydramine HCl (Benadryl) 50 mg STAT STAT IM Last administered on 09/07/18at 15:47; Start 09/07/18 at 15:34; Stop 09/07/18 at 15:38; Status DC Diphenhydramine HCl (Benadryl) 100 mg QHS PRN PO SLEEP Last administered on 09/07/18 21:11; Start 09/05/18 at 22:15 Haloperidol (Haldol) 10 mg BID PO Last administered on 09/07/18 21:11; Start 09/05/18 at 21:00 Haloperidol (Haldol) 10 mg STAT STAT IM Last administered on 09/06/18 18:11; Start 09/06/18 at 17:56; Stop 09/06/18 at 17:58; Status DC Haloperidol (Haldol) 10 mg STAT STAT IM Last administered on 09/07/18 15:47; Start 09/07/18 at 15:34; Stop 09/07/18 at 15:38; Status DC Home Med (Med Rec Complete!) ASDIRECTED XX ; Start 09/05/18 at 21:15; Stop 09/05/18 at 21:15; Status DC [place] Carbonate (Eskalith-Cr) 450 mg BID PO Last administered on 09/07/18 21:11; Start 09/05/18 at 21:00 Lorazepam (Ativan) 2 mg STAT STAT IM Last administered on 09/06/18 18:11; Start 09/06/18 at 17:56; Stop 09/06/18 at 17:58; Status DC Lorazepam (Ativan) 2 mg STAT STAT IM Last administered on 09/07/18 15:47; Start 09/07/18 at 15:34; Stop 09/07/18 at 15:38; Status DC Metformin HCl (Glucophage) 1,000 mg BID PO Last administered on 09/07/18 21:13; Start 09/05/18 at 21:00 Olanzapine (ZyPREXA ZYDIS) 5 mg Q4HP PRN PO AGITATION; Start 09/05/18 at 20:30 Salmeterol Xinafoate/ Fluticasone (Advair Hfa 115/ 21) 2 puff BID INH Last administered on 09/07/18 21:10; Start 09/06/18 at 21:00 Sertraline HCl (Zoloft) 200 mg DAILY PO Last administered on 09/07/18at 09:20; Start 09/06/18 at 09:00 Topiramate (TopAMAX) 50 mg QHS PO Last administered on 09/07/18at 21:11; Start 09/05/18 at 21:00 Allergies Coded Allergies: lactose (Verified Allergy, Unknown, 08/16/18) MORALES STANTON DO Sep 08, 2018 8:47 am
--- NOTE | 2018-09-08 08:49 | MHPR ---
General Date: Sep 08, 2018 Time: 08:48 Post-Restraint Evaluation THE OUTCOME OF THE RESTRAINT: good EFFECTIVENESS OF THE RESTRAINT: Mechanical and/or chemical: mechanical and ch emical restraint was Positive, pt called down to no longer a harm to herself or others, sleeping in bed with 1:1 sitter present. ANY EVIDENCE THAT THE PATIENT WAS AFFECTED EMOTIONALLY: no ANY NEED FOR COUNSELING/ASSISTANCE: no CHANGES IN TREATMENT PLAN: no RECOMMENDATIONS FOR FUTURE INCIDENTS:no MORALES STANTON DO Sep 08, 2018 8:49 am
[2018-09-08] MEDS: cloNIDine 0.1 MG TAB PO SCH ×2 (09:17→21:18)
[2018-09-08] MEDS: LITHIUM CARBONATE 450 MG **CR** TAB PO SCH ×2 (09:17→21:15)
[2018-09-08] MEDS: metFORMIN (GLUCOPHAGE) 500 MG TAB PO SCH ×2 (09:17→21:14)
[2018-09-08] MEDS: SERTRALINE 100 MG TAB PO SCH (09:17)
[2018-09-08] MEDS: ADVAIR HFA 115/21MCG INHALER INH SCH ×2 (09:17→21:15)
[2018-09-08] MEDS: HALOPERIDOL 10 MG TAB PO SCH ×2 (09:17→21:14)
[2018-09-08 18:00] VITALS: BP 118/78
[2018-09-08] MEDS: diphenhydrAMINE 50 MG CAP PO PRN (21:14)
[2018-09-08] MEDS: TOPIRAMATE (TopAMAX) 25 MG TAB PO SCH (21:14)
[2018-09-08] MEDS: cloZAPine 100 MG TAB (S0136) PO SCH (21:17)
[2018-09-09] VITALS (10 sets, daily range): BP systolic 116–144; BP diastolic 64–87
[2018-09-09] MEDS: HALOPERIDOL 10 MG TAB PO SCH ×2 (08:51→21:05)
[2018-09-09] MEDS: LITHIUM CARBONATE 450 MG **CR** TAB PO SCH ×2 (08:51→21:04)
[2018-09-09] MEDS: metFORMIN (GLUCOPHAGE) 500 MG TAB PO SCH ×2 (08:52→21:04)
[2018-09-09] MEDS: SERTRALINE 100 MG TAB PO SCH (08:52)
[2018-09-09] MEDS: ADVAIR HFA 115/21MCG INHALER INH SCH ×2 (08:52→21:04)
[2018-09-09] MEDS: cloNIDine 0.1 MG TAB PO SCH ×2 (08:56→21:05)
--- NOTE | 2018-09-09 13:11 | MHIPN ---
DATE: 09/09/2018 SUBJECTIVE: "I still have suicidal thoughts and to scratch myself." OBJECTIVE: She is a 22-year-old female with a history of schizoaffective disorder and borderline personality disorder, brought from [facility] ([facility]) for trying to hurt herself by tying a plastic bag around her neck and she expressed suicidal thoughts. She has had multiple psychiatric hospitalizations. MENTAL STATUS EXAMINATION: She is well groomed, cooperative, made good eye contact. Mood is depressed. Affect is appropriate for the mood, somewhat constricted. Speech is spontaneous. Rate, rhythm and volume are good. Thought process is linear and goal directed. Thought content: Denied any paranoid or bizarre delusions. Denied any ideas of referrence. Cognition: She is alert and oriented to time, place, person and situation. Memory -- immediate, remote, and recent are good. Insight and judgment are limited. VITAL SIGNS: Temperature 96.8, pulse 78, respiratory rate is 18, blood pressure 144/81. LABORATORIES: CBC within normal limits. CMP within normal limits. HCG is negative. Urine toxicology is negative. CURRENT MEDICATIONS: - sertraline 200 mg daily - clonidine 0.1 mg twice a day - clozapine 400 mg at night - lithium carbonate 450 mg twice a day - metformin 1000 mg twice a day - topiramate 50 mg at night ASSESSMENT: 1. Schizoaffective disorder. 2. Borderline personality disorder. 3. Diabetes mellitus. PLAN: Continue current medications. Continue suicide watch. Continue individual, group and milieu therapy. Estimated length of stay is 3 to 4 days.
[2018-09-09] MEDS: diphenhydrAMINE 50 MG CAP PO PRN (21:04)
[2018-09-09] MEDS: cloZAPine 100 MG TAB (S0136) PO SCH (21:06)
[2018-09-09] MEDS: TOPIRAMATE (TopAMAX) 25 MG TAB PO SCH (21:06)
[2018-09-09] MEDS ORDERED: LORazepam 2 MG/ML VIAL (J2060) IM STA (21:38)
[2018-09-09] MEDS ORDERED: HALOPERIDOL 5 MG/ML VIAL (J1630) IM STA (21:38)
[2018-09-09] MEDS ORDERED: diphenhydrAMINE INJ 50MG/ML VIAL (J1200) IM STA (21:38)
[2018-09-10] MEDS: LITHIUM CARBONATE 450 MG **CR** TAB PO SCH ×2 (08:17→20:26)
[2018-09-10] MEDS: metFORMIN (GLUCOPHAGE) 500 MG TAB PO SCH ×2 (08:17→20:26)
[2018-09-10] MEDS: ADVAIR HFA 115/21MCG INHALER INH SCH ×2 (08:17→20:26)
[2018-09-10] MEDS: SERTRALINE 100 MG TAB PO SCH (08:17)
[2018-09-10] MEDS: HALOPERIDOL 10 MG TAB PO SCH ×2 (08:17→20:25)
[2018-09-10] MEDS: cloNIDine 0.1 MG TAB PO SCH ×2 (08:22→20:25)
--- NOTE | 2018-09-10 14:03 | MHIR ---
DATE: 09/09/2018 TIME: 10:00 p.m. Restraint Documentation [id number]: Yes. Physician Assessment: The patient was trying to jump off the desk, agitated, yelling and screaming, refusing to follow staff redirection. Reason for Restraint: Patient poses imminent danger of harming herself, exhibiting violence, yelling and screaming, refusing to follow staff redirection. De-escalation Interventions Attempted Before the Use of Restraints. Staff redirection, support and as needed medications, which patient refused. Mechanical and Chemical Restraints Used: Haldol 5 mg IM, Ativan 2 mg IM, Benadryl 50 mg IM. Length of Time Ordered in Restraint: 2 hours. When to Discontinue Restraints: When patient is no longer a threat to her or others. Post Evaluation of Restraint: Due in 24 hours.
[2018-09-10 18:02] VITALS: BP 129/60
[2018-09-10] MEDS: TOPIRAMATE (TopAMAX) 25 MG TAB PO SCH (20:26)
[2018-09-10] MEDS: cloZAPine 100 MG TAB (S0136) PO SCH (20:26)
[2018-09-10] MEDS: diphenhydrAMINE 50 MG CAP PO PRN (20:26)
[2018-09-11 06:35] VITALS: BP 124/90
[2018-09-11] MEDS: ADVAIR HFA 115/21MCG INHALER INH SCH ×2 (08:08→21:05)
[2018-09-11] MEDS: LITHIUM CARBONATE 450 MG **CR** TAB PO SCH ×2 (08:10→21:06)
[2018-09-11] MEDS: HALOPERIDOL 10 MG TAB PO SCH ×2 (08:10→21:05)
[2018-09-11] MEDS: SERTRALINE 100 MG TAB PO SCH (08:10)
[2018-09-11] MEDS: cloNIDine 0.1 MG TAB PO SCH ×2 (08:10→21:06)
[2018-09-11] MEDS: metFORMIN (GLUCOPHAGE) 500 MG TAB PO SCH ×2 (08:10→21:06)
[2018-09-11 18:00] VITALS: BP 134/90
--- NOTE | 2018-09-11 18:38 | MHIPNPDOC ---
[facility] Progress Note Progress Note Inpatient Progress Note Marisol Simmons Female Date of : N/A Date of Service: 09/11/2018 History of Present Illness Patient, a 22-year-old woman with a history of likely intellectual disabilities and reported psychotic disorder/bipolar disorder, presents to the [facility] Emergency Room after placing a bag around her neck in a reported suicide attempt. She has been admitted to the unit multiple times in the past and generally decompensates quickly. Interval History Patient is met with briefly in the hallway as she generally can only tolerate very short interviews. She describes that she is doing well. Staff report that she has been attending groups regularly with no episodes of agitation. She has been generally amenable today with few, if any, problems noted. Review Of Systems Denies any side effects from medications. Psychotherapy None on this visit. Vital Signs Reviewed. Mental Status Examination General: Fair hygiene Speech: Parsimonious Thought processes: Linear and logical MSK: Smooth and coordinated gait, no signs of tremors or involuntary orofacial movements Thought content: Focused on regaining pillow sheets Abstract reasoning, and computation: Intact Description of associations: Intact Description of abnormal or psychotic thoughts: Denies any suicidal or homicidal ideation. Denies any auditory or visual hallucinations. Does not appear to be responding to internal stimuli. Does not appear to be endorsing any bizarre or paranoid ideation. Judgment: Poor Insight: Poor Orientation: Alert and orientated 3 Cognition: Grossly normal Recent and remote memory: Intact Attention span and concentration: Intact Fund of knowledge: Adequate Mood: "Fine" Affect: Flat with a constricted range Diagnoses Schizo-affective disorder, bipolar type: improving. Borderline personality disorder. Moderate intellectual disability. Assessment and Plan Patient, a 22-year-old woman with a history of borderline schizo-affective disorder, moderate intellectual disability, has been admitted to the in-patient unit. She is making mild improvements as she appears to have adapted to her surroundings relatively well. She continues on a one-to-one sitter with no re straints today. Continue behavioral contract. Continue current medications, clonidine 0.1 mg BID, Clozaril 400 mg at night, lithium 450 mg BID, Zoloft 200 mg daily, Topamax 50 mg BID, and as-needed trazodone, Atarax, and Benadryl. Continue Haldol 10 mg BID. Disposition Patient will need a further in-patient admission in order to stabilize her behavioral problems and ensure her safety, as she is a chronic elevated risk. Time Spent 10 minutes. Vital Signs Vital Signs Date Time Temp Pulse Resp B/P (MAP) Pulse Ox O2 Delivery O2 Flow Rate FiO2 09/11/18 08:10 122/83 09/11/18 06:35 96.9 73 18 09/09/18 23:45 98 09/05/18 21:03 Room Air Current Medications Current Medications Acetaminophen (Tylenol Tab) 650 mg Q6HP PRN PO HEADACHE or DISCOMFORT; Start 09/05/18 at 20:30 Al Hydrox/Mg Hydrox/Simethicone (Mylanta) 30 ml Q4HP PRN PO HEARTBURN/INDIGESTION; Start 09/05/18 at 20:30 Albuterol Sulfate (Proventil, Ventolin Hfa) 2 puff Q4HP PRN INH SHORTNESS OF BREATH; Start 09/06/18 at 15:15 Albuterol Sulfate (Proventil, Ventolin Hfa) 2 puff QID PRN INH SHORTNESS OF BREATH; Start 09/05/18 at 22:15; Stop 09/06/18 at 15:27; Status DC Clonidine HCl (Catapres) 0.1 mg BID PO Last administered on 09/11/18at 08:10; Start 09/05/18 at 21:00 Clozapine (Clozaril) 400 mg QHS PO Last administered on 09/10/18at 20:26; Start 09/05/18 at 21:00 Diphenhydramine HCl (Benadryl) 50 mg STAT STAT IM Last administered on 09/06/18at 18:12; Start 09/06/18 at 17:56; Stop 09/06/18 at 17:58; Status DC Diphenhydramine HCl (Benadryl) 50 mg STAT STAT IM Last administered on 09/07/18at 15:47; Start 09/07/18 at 15:34; Stop 09/07/18 at 15:38; Status DC Diphenhydramine HCl (Benadryl) 50 mg STAT STAT IM Last administered on 09/09/18at 21:49; Start 09/09/18 at 21:38; Stop 09/09/18 at 21:41; Status DC Diphenhydramine HCl (Benadryl) 100 mg QHS PRN PO SLEEP Last administered on 09/10/18 20:26; Start 09/05/18 at 22:15 Haloperidol (Haldol) 5 mg STAT STAT IM Last administered on 09/09/18 21:49; Start 09/09/18 at 21:38; Stop 09/09/18 at 21:41; Status DC Haloperidol (Haldol) 10 mg BID PO Last administered on 09/11/18 08:10; Start 09/05/18 at 21:00 Haloperidol (Haldol) 10 mg STAT STAT IM Last administered on 09/06/18 18:11; Start 09/06/18 at 17:56; Stop 09/06/18 at 17:58; Status DC Haloperidol (Haldol) 10 mg STAT STAT IM Last administered on 09/07/18 15:47; Start 09/07/18 at 15:34; Stop 09/07/18 at 15:38; Status DC Home Med (Med Rec Complete!) ASDIRECTED XX ; Start 09/05/18 at 21:15; Stop 09/05/18 at 21:15; Status DC [place] Carbonate (Eskalith-Cr) 450 mg BID PO Last administered on 09/11/18 08:10; Start 09/05/18 at 21:00 Lorazepam (Ativan) 2 mg STAT STAT IM Last administered on 09/06/18 18:11; Start 09/06/18 at 17:56; Stop 09/06/18 at 17:58; Status DC Lorazepam (Ativan) 2 mg STAT STAT IM Last administered on 09/07/18 15:47; Start 09/07/18 at 15:34; Stop 09/07/18 at 15:38; Status DC Lorazepam (Ativan) 2 mg STAT STAT IM Last administered on 09/09/18 21:49; Start 09/09/18 at 21:38; Stop 09/09/18 at 21:41; Status DC Metformin HCl (Glucophage) 1,000 mg BID PO Last administered on 09/11/18 08:10; Start 09/05/18 at 21:00 Olanzapine (ZyPREXA ZYDIS) 5 mg Q4HP PRN PO AGITATION; Start 09/05/18 at 20:30 Salmeterol Xinafoate/ Fluticasone (Advair Hfa 115/ 21) 2 puff BID INH Last administered on 09/11/18 08:08; Start 09/06/18 at 21:00 Sertraline HCl (Zoloft) 200 mg DAILY PO Last administered on 09/11/18 08:10; Start 09/06/18 at 09:00 Topiramate (TopAMAX) 50 mg QHS PO Last administered on 09/10/18at 20:26; Start 09/05/18 at 21:00 Allergies Coded Allergies: lactose (Verified Allergy, Unknown, 08/16/18) LORETTA ARCE DO Sep 11, 2018 18:38
[2018-09-11] MEDS: ACETAMINOPHEN TAB 650MG DOSE (2X325MG) PO PRN (21:07)
[2018-09-11] MEDS: cloZAPine 100 MG TAB (S0136) PO SCH (21:07)
[2018-09-11] MEDS: TOPIRAMATE (TopAMAX) 25 MG TAB PO SCH (21:08)
[2018-09-11] MEDS: diphenhydrAMINE 50 MG CAP PO PRN (22:06)
[2018-09-12 06:36] VITALS: BP 119/54
[2018-09-12] MEDS: ADVAIR HFA 115/21MCG INHALER INH SCH ×2 (08:53→21:07)
[2018-09-12] MEDS: cloNIDine 0.1 MG TAB PO SCH ×2 (08:54→21:09)
[2018-09-12] MEDS: HALOPERIDOL 10 MG TAB PO SCH ×2 (08:54→21:08)
[2018-09-12] MEDS: LITHIUM CARBONATE 450 MG **CR** TAB PO SCH ×2 (08:54→21:09)
[2018-09-12] MEDS: SERTRALINE 100 MG TAB PO SCH (08:54)
[2018-09-12] MEDS: metFORMIN (GLUCOPHAGE) 500 MG TAB PO SCH ×2 (08:55→21:10)
--- NOTE | 2018-09-12 09:19 | MHIPNPDOC ---
[facility] Progress Note Progress Note DATE OF SERVICE: 09/12/18 HISTORY: Patient is a 22 -year-old , female, with a history of schizoaffective d/o, borderline personality d/o, moderate intellectual disability, and multiple admission [facility] for SI in the past who was brought to ED by [facility] (place of residence) staff due to pt endorsing SI w/plan secondary to peer pressures per ED. Per ED, pt had an argument with fellow residents at [facility] that made her feel like no one liked her there so tied a plastic bag around her neck to strangle herself that she stated was a suicide attempt. Per ED pt e ndorsed depressed mood, anxiety, hopelessness, helplessness and SI. She denied AH in the ED. VITAL SIGNS: See below. NEW TEST RESULTS: See below. CURRENT MEDICATIONS: See below. MENTAL STATUS EXAMINATION: General Appearance: well groomed, appears stated age, hospital scrubs/clothing Build: overweight Demeanor: average, child-like Eye Contact: good Activity: average Behavior: cooperative Speech: reg rate/rhythm/volume Mood: euthymic, full Mood "good" Affect: euthymic, full, congruent Thought Process: logical/linear, concrete Thought Content (Delusions): denies SI/HI, AVH Thought Content (Other): coherent Thought Content (Aggressive): none reported Perception (Hallucinations): none reported Perception (Other): none reported Cognition (Impairment of): none reported Cognition(Intelligence Est.): borderline Oriented: Awake, Alert, Oriented times three Insight: poor Judgment: Poor Psychosis: Denies DIAGNOSES: Schizoaffective disorder, bipolar type borderline personality d/o moderate intellectual disability ASSESSMENT:Pt had a good weekend with no codes since Tuesday and following behavioral plan well. Denies SI and feels like she can be taken off sitter. States she feels safe to return to [facility] tomorrow.. She's compliant on her medications. Denies SI/HI, hallucinations, delusions. MANAGEMENT PLAN: continue plan and behavioral contract. medications: Clonidine 0.1 mg BID Clozaril 400 mg QHS Benadryl 100 mg Q6HP PRN PO anxiety/agitation Atarax 50 mg Q4HP PRN PO ANXIETY/AGITATION [place] 450 mg BID Zoloft 200 mg DAILY TopAMAX 50 mg BID Trazodone 50 mg QHSP PRN PO INSOMNIA haldol 10mg bid TIME SPENT: 30 minutes. Vital Signs Vital Signs Date Time Temp Pulse Resp B/P (MAP) Pulse Ox O2 Delivery O2 Flow Rate FiO2 09/12/18 08:54 132/86 09/12/18 06:36 96.9 80 14 09/09/18 23:45 98 Current Medications Current Medications Acetaminophen (Tylenol Tab) 650 mg Q6HP PRN PO HEADACHE or DISCOMFORT Last administered on 09/11/18 21:07; Start 09/05/18 at 20:30 Al Hydrox/Mg Hydrox/Simethicone (Mylanta) 30 ml Q4HP PRN PO HEARTBURN/INDIGESTION; Start 09/05/18 at 20:30 Albuterol Sulfate (Proventil, Ventolin Hfa) 2 puff Q4HP PRN INH SHORTNESS OF BREATH; Start 09/06/18 at 15:15 Albuterol Sulfate (Proventil, Ventolin Hfa) 2 puff QID PRN INH SHORTNESS OF BREATH; Start 09/05/18 at 22:15; Stop 09/06/18 at 15:27; Status DC Clonidine HCl (Catapres) 0.1 mg BID PO Last administered on 09/12/18 08:54; Start 09/05/18 at 21:00 Clozapine (Clozaril) 400 mg QHS PO Last administered on 09/11/18 21:07; Start 09/05/18 at 21:00 Diphenhydramine HCl (Benadryl) 50 mg STAT STAT IM Last administered on 09/06/18 18:12; Start 09/06/18 at 17:56; Stop 09/06/18 at 17:58; Status DC Diphenhydramine HCl (Benadryl) 50 mg STAT STAT IM Last administered on 09/07/18 15:47; Start 09/07/18 at 15:34; Stop 09/07/18 at 15:38; Status DC Diphenhydramine HCl (Benadryl) 50 mg STAT STAT IM Last administered on 09/09/18 21:49; Start 09/09/18 at 21:38; Stop 09/09/18 at 21:41; Status DC Diphenhydramine HCl (Benadryl) 100 mg QHS PRN PO SLEEP Last administered on 09/11/18 22:06; Start 09/05/18 at 22:15 Haloperidol (Haldol) 5 mg STAT STAT IM Last administered on 09/09/18 21:49; Start 09/09/18 at 21:38; Stop 09/09/18 at 21:41; Status DC Haloperidol (Haldol) 10 mg BID PO Last administered on 09/12/18 08:54; Start 09/05/18 at 21:00 Haloperidol (Haldol) 10 mg STAT STAT IM Last administered on 09/06/18 18:11; Start 09/06/18 at 17:56; Stop 09/06/18 at 17:58; Status DC Haloperidol (Haldol) 10 mg STAT STAT IM Last administered on 09/07/18 15:47; Start 09/07/18 at 15:34; Stop 09/07/18 at 15:38; Status DC Home Med (Med Rec Complete!) ASDIRECTED XX ; Start 09/05/18 at 21:15; Stop 09/05/18 at 21:15; Status DC [place] Carbonate (Eskalith-Cr) 450 mg BID PO Last administered on 09/12/18 08:54; Start 09/05/18 at 21:00 Lorazepam (Ativan) 2 mg STAT STAT IM Last administered on 09/06/18 18:11; Start 09/06/18 at 17:56; Stop 09/06/18 at 17:58; Status DC Lorazepam (Ativan) 2 mg STAT STAT IM Last administered on 09/07/18 15:47; Start 09/07/18 at 15:34; Stop 09/07/18 at 15:38; Status DC Lorazepam (Ativan) 2 mg STAT STAT IM Last administered on 09/09/18 21:49; Start 09/09/18 at 21:38; Stop 09/09/18 at 21:41; Status DC Metformin HCl (Glucophage) 1,000 mg BID PO Last administered on 09/12/18 08:55; Start 09/05/18 at 21:00 Olanzapine (ZyPREXA ZYDIS) 5 mg Q4HP PRN PO AGITATION; Start 09/05/18 at 20:30 Salmeterol Xinafoate/ Fluticasone (Advair Hfa 115/ 21) 2 puff BID INH Last administered on 09/12/18at 08:53; Start 09/06/18 at 21:00 Sertraline HCl (Zoloft) 200 mg DAILY PO Last administered on 09/12/18at 08:54; Start 09/06/18 at 09:00 Topiramate (TopAMAX) 50 mg QHS PO Last administered on 09/11/18at 21:08; Start 09/05/18 at 21:00 Allergies Coded Allergies: lactose (Verified Allergy, Unknown, 08/16/18) MORALES STANTON DO Sep 12, 2018 9:19 am
[2018-09-12 18:00] VITALS: BP 124/64
[2018-09-12] MEDS: cloZAPine 100 MG TAB (S0136) PO SCH (21:00)
[2018-09-12] MEDS: TOPIRAMATE (TopAMAX) 25 MG TAB PO SCH (21:08)
[2018-09-12] MEDS: ACETAMINOPHEN TAB 650MG DOSE (2X325MG) PO PRN (21:08)
[2018-09-13 06:42] VITALS: BP 138/63
[2018-09-13] MEDS: ADVAIR HFA 115/21MCG INHALER INH SCH (08:10)
[2018-09-13] MEDS: HALOPERIDOL 10 MG TAB PO SCH (08:10)
[2018-09-13 08:11] VITALS: BP 140/80
[2018-09-13] MEDS: LITHIUM CARBONATE 450 MG **CR** TAB PO SCH (08:11)
[2018-09-13] MEDS: metFORMIN (GLUCOPHAGE) 500 MG TAB PO SCH (08:11)
[2018-09-13] MEDS: cloNIDine 0.1 MG TAB PO SCH (08:11)
[2018-09-13] MEDS: SERTRALINE 100 MG TAB PO SCH (08:11)
--- NOTE | 2018-09-13 08:41 | MHDSPDOC ---
[facility] Discharge Summary Discharge Summary DATE OF ADMISSION: Sep 05, 2018 at 20:18 DATE OF DISCHARGE: September 13, 2018 1. MDD w/psychotic/mixed features 2. Unspecified Trauma and Stressor related D/O 3. Borderline Intellectual Functioning 4. Borderline Personality D/O REASON FOR ADMISSION: Patient is a 22 -year-old , female, with a history of schizoaffective d/o, borderline personality d/o, moderate intellectual disability, and multiple admission [facility] for SI in the past who was brought to ED by TLS (place of residence) staff due to pt endorsing SI w/plan secondary to peer pressures per ED. Per ED, pt had an argument with fellow residents at [facility] that made her feel like no one liked her there so tied a plast ic bag around her neck to strangle herself that she stated was a suicide attempt. Per ED pt endorsed depressed mood, anxiety, hopelessness, helplessness and SI. She denied AH in the ED. CONSULTANTS INVOLVED: none TEST RESULTS: Clozaril lvl 874 therapeutic, ANC 5156.8 wnl (08/17/18) TREATMENT AND PROGRESS ON THE UNIT : Pt was admitted to [facility], seen for psychiat bridgette assessment and restarted on her outpatient psychiatric medications clozaril, haldol, trazodone, zoloft, lithium, topomax, and clonidine that she tolerated well. Pt did require two chemical and physical restraints during her stay but was cooperative on the unit and her behavioral symptoms improved after codes with staff support and redirection. Pt was placed on a 1:1 sitter during her stay for SI with d/c of 1:1 sitter one day prior to d/c when pt able to say she was no longer having SI and felt safe to be without a sitter. Pt found her medications beneficial and tolerated them well. She attended groups daily and during her stay. Her symptoms improved with treatment. On day of discharge she denied depression, anxiety, insomnia, SI/HI, hallucinations, delusions. She was discharged back to [facility] after TLS meeting with follow-up at [facility]. She felt safe for discharge. DISCHARGE ASSESSMENT: Patient seen states her mood is good and she's looking forward to returning to [facility] today. She denies SI/HI, AH and her behavioral symptoms are improved. She is less attention seeking. She is tolerating her medications well and feels they're beneficial. She denies depression, anxiety, insomnia, SI/HI, hallucinations, delusions. She feels safe to be discharged back to [facility] today. MENTAL STATUS EXAMINATION ON DISCHARGE: General Appearance: clean, appears stated age, own clothing Build: overweight Demeanor: calm, pleasant, child-like Eye Contact: poor Activity: calm Behavior: cooperative, child-like Speech: reg rate, rhythm, volume Mood: euthymic Mood "good" Affect: euthymic, full Thought Process: logical/linear, concrete Thought Content (Delusions): Denies SI/HI, AVH Thought Content (Other): none reported Thought Content (Aggressive): none reported Perception (Hallucinations): none reported Perception (Other): none reported Cognition (Impairment of): none reported Cognition(Intelligence Est.): borderline Oriented: Awake, Alert, Oriented times three Insight: limited Judgment: limited Psychosis: Denies MEDICATIONS ON DISCHARGE: Clonidine 0.1 mg BID Clozaril 400 mg QHS Benadryl 100 mg Q6HP PRN PO anxiety/agitation Atarax 50 mg Q4HP PRN PO ANXIETY/AGITATION [place] 450 mg BID Zoloft 200 mg DAILY TopAMAX 50 mg BID Trazodone 50 mg QHSP PRN PO INSOMNIA haldol 10mg bid PLAN/FOLLOWUP ARRANGEMENTS: D/c back to [facility] with follow-up at [facility]. The amount of time spent in the coordination of care for this patient was approximately 30 minutes. Vital Signs/I&Os Vital Signs Date Time Temp Pulse Resp B/P (MAP) Pulse Ox O2 Delivery O2 Flow Rate FiO2 09/13/18 08:11 140/80 09/13/18 06:42 97.6 74 14 09/09/18 23:45 98 Medications Scheduled Clonidine Hcl (Clonidine HCl) 0.1 Mg Tablet, 0.1 MG PO BID, (Reported) Clozapine (Clozapine) 100 Mg Tablet, 400 MG PO QHS, (Reported) Fluticasone Propion/Salmeterol (Airduo Respiclick 232-14 Mcg) 1 Each Aer.pow.ba, 1 PUFF INH BID, (Reported) Haloperidol (Haloperidol) 10 Mg Tablet, 10 MG PO BID, (Reported) Lactase (Lactaid) 3,000 Unit Tab, 6,000 UNIT PO ASDIRECTED, (Reported) TAKES 2 TABS ANY TIME PATIENT HAS DAIRY [place] Carbonate ([place] Carbonate ER) 450 Mg Tablet.er, 450 MG PO BID, (Reported) Metformin HCl (Metformin HCl) 500 Mg Tablet, 1,000 MG PO BID, (Reported) Norethindrone-E.estradiol-Iron (Junel Fe 1.5 mg-30 Mcg Tablet) 1 Tab Tab, 1 TAB PO QHS, (Reported) Sertraline HCl (Sertraline HCl) 100 Mg Tablet, 200 MG PO DAILY, (Reported) Topiramate (Topiramate) 50 Mg Tablet, 50 MG PO QHS, (Reported) Scheduled PRN Albuterol Sulfate (Ventolin Hfa) 108 Mcg/Act Aer, 2 PUFFS INH QID PRN for SHORTNESS OF BREATH, (Reported) Diphenhydramine HCl (Diphenhydramine HCl) 50 Mg Capsule, 100 MG PO QHS PRN for SLEEP, (Reported) Trazodone HCl (Trazodone HCl) 50 Mg Tablet, 50 MG PO QHS PRN for SLEEP, (Rep orted) Allergies Coded Allergies: lactose (Verified Allergy, Unknown, 08/16/18) MORALES STANTON DO Sep 13, 2018 08:41
== END 2018-09-13 11:45 | disposition home or self-care (01) | DRG 751 ==
LOC: M ED 17:55 → M ED INP 20:18 → M PSY 21:51
PROVIDERS: ADMIT Psychiatry & Neurology Addiction Medicine; ATTEND Psychiatry & Neurology Psychiatry
DX: F32.3 Major depressive disorder, single episode, severe with psychotic features (principal); E73.9 Lactose intolerance, unspecified; F71 Moderate intellectual disabilities; F60.3 Borderline personality disorder; R73.01 Impaired fasting glucose; J45.909 Unspecified asthma, uncomplicated; Z79.899 Other long term (current) drug therapy; Z81.8 Family history of other mental and behavioral disorders; E66.9 Obesity, unspecified; Z91.410 Personal history of adult physical and sexual abuse; Z91.411 Personal history of adult psychological abuse; Z79.84 Long term (current) use of oral hypoglycemic drugs

== ENCOUNTER 2018-10-02 17:28 | Emergency (ER) | payer MEDICAID, OTHER ==
[~2018-10-02] VITALS: Ht 152.4 cm; Wt 114.7 kg
[~2018-10-02 17:28] MED LIST changes: -QUET1TAB9 PO; +QUET200T2 PO
[2018-10-02 17:44] VITALS: BP 136/87
[2018-10-02] MEDS ORDERED: TOPI25TA10 PO (18:22)
[2018-10-02 18:35] LABS: HEMATOCRIT 36.6 % (36.0-47.0); HEMOGLOBIN 11.9 g/dl (12.0-15.5); MEAN CORPUSCULAR HEMOGLOBIN 30.4 pg (27.0-33.0); MEAN CORPUSCULAR HGB CONC 32.5 g/dl (32.0-36.5); MEAN CORPUSCULAR VOLUME 93.4 fl (80.0-96.0); PLATELET COUNT, AUTOMATED 292 10^3/uL (150-450); RED BLOOD COUNT 3.92 10^6/uL (4.00-5.40); WHITE BLOOD COUNT 7.4 10^3/uL (4.0-10.0)
[2018-10-02 19:05] LABS: HCG, SERUM QUALITATIVE NEGATIVE (NEGATIVE)
[2018-10-02 19:10] LABS: ACETAMINOPHEN LEVEL < 2.0 UG/ML (10.0-30.0); ALBUMIN 3.7 GM/DL (3.2-5.2); ALT/SGPT 17 U/L (12-78); BILIRUBIN,DIRECT < 0.1 MG/DL (0.0-0.2); BILIRUBIN,TOTAL 0.3 MG/DL (0.2-1.0); BLOOD UREA NITROGEN 14 MG/DL (7-18); CALCIUM LEVEL 8.2 MG/DL (8.5-10.1); CARBON DIOXIDE LEVEL 20 MEQ/L (21-32); CHLORIDE LEVEL 113 MEQ/L (98-107); CREATININE FOR GFR 0.81 MG/DL (0.55-1.30); ETHYL ALCOHOL (ETHANOL) < 0.003 % (0.000-0.010); GLOMERULAR FILTRATION RATE > 60.0 (>60); GLUCOSE, FASTING 77 MG/DL (70-100); LITHIUM LEVEL 0.65 MEQ/L (0.60-1.20); POTASSIUM SERUM 3.9 MEQ/L (3.5-5.1); SALICYLATE LEVEL < 1.7 MG/DL (5.0-30.0); SODIUM LEVEL 142 MEQ/L (136-145); TOTAL PROTEIN 7.1 GM/DL (6.4-8.2)
[2018-10-02 19:24] LABS: AMPHETAMINES LEVEL URINE NEGATIVE (NEGATIVE); BARBITURATES URINE NEGATIVE (NEGATIVE); BENZODIAZEPINES URINE NEGATIVE (NEGATIVE); CANNABINOIDS URINE NEGATIVE (NEGATIVE); COCAINE METABOLITE URINE NEGATIVE (NEGATIVE); METHADONE URINE NEGATIVE (NEGATIVE); OPIATES URINE NEGATIVE (NEGATIVE); PHENCYCLIDINE URINE NEGATIVE (NEGATIVE)
[2018-10-16] MEDS ORDERED: ABIL10TA9 (20:08)
[2018-10-16] MEDS ORDERED: ABIL1TAB11 (20:08)
== END 2018-10-02 19:56 | disposition home or self-care (01) ==
LOC: M ED 17:28
DX: R45.851 Suicidal ideations (principal); F33.9 Major depressive disorder, recurrent, unspecified; E73.9 Lactose intolerance, unspecified; Z79.899 Other long term (current) drug therapy
CPT/HCPCS: 36415; 80048; 80076; 80178; 80307; 84443; 84703; 85027; 99283; G0480

== ENCOUNTER 2018-10-16 17:45 | Emergency (ER) | payer OTHER ==
[~2018-10-16] VITALS: Ht 152.4 cm; Wt 97.7 kg
[2018-10-16] MEDS ORDERED: ABIL10TA9 PO (20:08)
[2018-10-16] MEDS ORDERED: ABIL1TAB11 PO (20:08)
[2018-10-16 20:26] LABS: BASO # 0.1 10^3/uL (0.0-0.2); BASO % 0.6 % (0.0-1.0); HEMATOCRIT 41.3 % (36.0-47.0); HEMOGLOBIN 13.3 g/dl (12.0-15.5); LYMPH # 3.2 10^3/uL (1.5-6.5); LYMPH % 31.3 % (24.0-44.0); MEAN CORPUSCULAR HEMOGLOBIN 30.4 pg (27.0-33.0); MEAN CORPUSCULAR HGB CONC 32.2 g/dl (32.0-36.5); MEAN CORPUSCULAR VOLUME 94.5 fl (80.0-96.0); MONO # 0.6 10^3/uL (0.0-0.8); MONO % 6.1 % (0.0-5.0); NEUTROPHILS # 6.3 10^3/uL (1.8-7.7); NEUTROPHILS % 61.6 % (36.0-66.0); PLATELET COUNT, AUTOMATED 298 10^3/uL (150-450); RED BLOOD COUNT 4.37 10^6/uL (4.00-5.40); WHITE BLOOD COUNT 10.3 10^3/uL (4.0-10.0)
[2018-10-16 20:52] LABS: ALBUMIN 4.2 GM/DL (3.2-5.2); ALT/SGPT 27 U/L (12-78); BILIRUBIN,DIRECT < 0.1 MG/DL (0.0-0.2); BILIRUBIN,TOTAL 0.2 MG/DL (0.2-1.0); BLOOD UREA NITROGEN 10 MG/DL (7-18); CALCIUM LEVEL 9.2 MG/DL (8.5-10.1); CARBON DIOXIDE LEVEL 23 MEQ/L (21-32); CHLORIDE LEVEL 111 MEQ/L (98-107); CREATININE FOR GFR 0.94 MG/DL (0.55-1.30); GLOMERULAR FILTRATION RATE > 60.0 (>60); GLUCOSE, FASTING 86 MG/DL (70-100); LIPASE 181 U/L (73-393); POTASSIUM SERUM 3.7 MEQ/L (3.5-5.1); SODIUM LEVEL 142 MEQ/L (136-145); TOTAL PROTEIN 7.8 GM/DL (6.4-8.2)
[2018-10-16] MEDS ORDERED: GI COCKTAIL 50ML BTL(HYOSCYAMINE/MAALOX/LIDOCAINE VISCOUS)(1:3:1) PO ONE (22:00)
[2018-10-16] MEDS ORDERED: ONDANSETRON 4 MG ORAL DISINTEGRATING TAB (Q0162 PER 1MG) PO ONE (22:00)
[2018-10-16] MEDS ORDERED: ZANT150T40 PO (23:16)
[2018-10-16] MEDS ORDERED: ZOFR4TAB16 PO (23:16)
[2018-10-16 23:23] VITALS: BP 148/86
== END 2018-10-16 23:24 | disposition home or self-care (01) ==
LOC: M ED 17:45
DX: R10.13 Epigastric pain (principal); E11.9 Type 2 diabetes mellitus without complications; I10 Essential (primary) hypertension; J45.909 Unspecified asthma, uncomplicated; Z79.84 Long term (current) use of oral hypoglycemic drugs; Z79.899 Other long term (current) drug therapy; E73.9 Lactose intolerance, unspecified
CPT/HCPCS: 80048; 80076; 81001; 83690; 84702; 85025; 99284; Q0162

== ENCOUNTER 2018-10-18 19:44 | Emergency (ER) | payer OTHER ==
[~2018-10-18] VITALS: Ht 152.4 cm; Wt 109.1 kg
[~2018-10-18 19:44] MED LIST changes: +ABIL10TA9 PO; +METF-791 PO; -METF500T4 PO; +ZANT150T40 PO; +ZOFR4TAB16 PO
[2018-10-18 21:38] VITALS: BP 129/83
[2018-10-18] MEDS ORDERED: KETOROLAC 60 MG/2 ML VIAL (J1885) IM ONE (22:15)
--- NOTE | 2018-10-19 08:09 | REP ---
Right foot: Four views. History: Twisted right ankle and foot. Findings: Four views of the right foot show normal bones joints and soft tissues. No fracture or subluxation is seen. Impression: No fracture noted. Electronically Signed by Christiano Carvalho MD 10/19/2018 08:01 A
--- NOTE | 2018-10-19 08:10 | REP ---
Right ankle series: Four views. History: Twisted right ankle. Findings: Four views of the right ankle demonstrate mild lateral swelling. Ankle mortise is intact. No fractures seen. Impression: Mild lateral swelling. No fracture noted. Electronically Signed by Christiano Carvalho MD 10/19/2018 08:01 A
== END 2018-10-18 22:31 | disposition home or self-care (01) ==
LOC: M ED 19:44
DX: S93.491A Sprain of other ligament of right ankle, initial encounter (principal); X50.1XXA Overexertion from prolonged static or awkward postures, initial encounter; Y92.098 Other place in other non-institutional residence as the place of occurrence of the external cause; I10 Essential (primary) hypertension; E03.9 Hypothyroidism, unspecified; J45.909 Unspecified asthma, uncomplicated; Z91.011 Allergy to milk products; Z79.899 Other long term (current) drug therapy; Z79.84 Long term (current) use of oral hypoglycemic drugs
CPT/HCPCS: 73610; 73630; 96372; 99284; J1885

== ENCOUNTER 2018-10-27 21:37 | Emergency (ER) | payer OTHER ==
[~2018-10-27] VITALS: Ht 152.4 cm; Wt 110.8 kg
[2018-10-27] MEDS ORDERED: ONDA4TAB5 PO (22:12)
[2018-10-27] MEDS ORDERED: TRAZ-252 PO (22:12)
[2018-10-27] MEDS ORDERED: DIPH50CA29 PO (22:12)
[2018-10-27] MEDS ORDERED: CLON-412 PO (22:12)
[2018-10-27] MEDS ORDERED: RANI150T14 PO (22:12)
[2018-10-27 22:42] LABS: HEMATOCRIT 35.4 % (36.0-47.0); HEMOGLOBIN 11.4 g/dl (12.0-15.5); MEAN CORPUSCULAR HEMOGLOBIN 30.2 pg (27.0-33.0); MEAN CORPUSCULAR HGB CONC 32.2 g/dl (32.0-36.5); MEAN CORPUSCULAR VOLUME 93.9 fl (80.0-96.0); PLATELET COUNT, AUTOMATED 286 10^3/uL (150-450); RED BLOOD COUNT 3.77 10^6/uL (4.00-5.40); WHITE BLOOD COUNT 8.7 10^3/uL (4.0-10.0)
[2018-10-27 23:11] LABS: AMPHETAMINES LEVEL URINE NEGATIVE (NEGATIVE); BARBITURATES URINE NEGATIVE (NEGATIVE); BENZODIAZEPINES URINE NEGATIVE (NEGATIVE); CANNABINOIDS URINE NEGATIVE (NEGATIVE); COCAINE METABOLITE URINE NEGATIVE (NEGATIVE); METHADONE URINE NEGATIVE (NEGATIVE); OPIATES URINE NEGATIVE (NEGATIVE); PHENCYCLIDINE URINE NEGATIVE (NEGATIVE)
[2018-10-27 23:13] LABS: ACETAMINOPHEN LEVEL < 2.0 UG/ML (10.0-30.0); ALBUMIN 3.3 GM/DL (3.2-5.2); ALT/SGPT 20 U/L (12-78); BILIRUBIN,DIRECT < 0.1 MG/DL (0.0-0.2); BILIRUBIN,TOTAL < 0.1 MG/DL (0.2-1.0); BLOOD UREA NITROGEN 11 MG/DL (7-18); CALCIUM LEVEL 8.6 MG/DL (8.5-10.1); CARBON DIOXIDE LEVEL 20 MEQ/L (21-32); CHLORIDE LEVEL 114 MEQ/L (98-107); CREATININE FOR GFR 0.83 MG/DL (0.55-1.30); ETHYL ALCOHOL (ETHANOL) 0.004 % (0.000-0.010); GLOMERULAR FILTRATION RATE > 60.0 (>60); GLUCOSE, FASTING 95 MG/DL (70-100); POTASSIUM SERUM 3.9 MEQ/L (3.5-5.1); SALICYLATE LEVEL < 1.7 MG/DL (5.0-30.0); SODIUM LEVEL 145 MEQ/L (136-145); TOTAL PROTEIN 6.6 GM/DL (6.4-8.2)
[2018-10-27] MEDS ORDERED: diphenhydrAMINE INJ 50MG/ML VIAL (J1200) As Ordered ONE (23:15)
[2018-10-27] MEDS ORDERED: HALOPERIDOL 5 MG/ML VIAL (J1630) As Ordered ONE (23:15)
[2018-10-27 23:17] LABS: HCG, SERUM QUALITATIVE NEGATIVE (NEGATIVE)
[2018-10-27] MEDS ORDERED: diphenhydrAMINE INJ 50MG/ML VIAL (J1200) IM ONE (23:30)
[2018-10-27] MEDS ORDERED: HALOPERIDOL 5 MG/ML VIAL (J1630) IM ONE (23:30)
[2018-10-28] MEDS ORDERED: ACETAMINOPHEN TAB 650MG DOSE (2X325MG) PO ONE (05:15)
[2018-10-28] MEDS ORDERED: cloNIDine 0.1 MG TAB PO ONE (09:45)
[2018-10-28] MEDS ORDERED: FAMOTIDINE 20 MG TAB PO ONE (09:45)
[2018-10-28] MEDS ORDERED: SERTRALINE 100 MG TAB PO ONE (09:45)
[2018-10-28] MEDS ORDERED: LITHIUM CARBONATE 450 MG **CR** TAB PO ONE (09:45)
[2018-10-28] MEDS ORDERED: metFORMIN (GLUCOPHAGE) 1000 MG TABLET PO ONE (09:45)
[2018-10-28] MEDS ORDERED: ENTER DRUG NAME HERE (PATIENT'S OWN MED) PO ONE (10:15)
[2018-10-28] MEDS ORDERED: ENTER DRUG NAME HERE (PATIENT'S OWN MED) INH ONE ×2 (10:45→21:00)
[2018-10-28] MEDS ORDERED: diphenhydrAMINE 50 MG CAP PO ONE (13:45)
[2018-10-28 14:39] VITALS: BP 140/80
== END 2018-10-28 14:39 ==
LOC: M ED 21:37
DX: F79 Unspecified intellectual disabilities (principal); F91.9 Conduct disorder, unspecified; F60.3 Borderline personality disorder; R45.1 Restlessness and agitation; T14.90XA Injury, unspecified, initial encounter; X83.8XXA Intentional self-harm by other specified means, initial encounter; Y92.238 Other place in hospital as the place of occurrence of the external cause; Y93.89 Activity, other specified; E73.9 Lactose intolerance, unspecified; Z79.899 Other long term (current) drug therapy; Z79.84 Long term (current) use of oral hypoglycemic drugs
CPT/HCPCS: 80048; 80076; 80178; 80307; 84443; 84703; 85027; 96372; 99285; G0480; J1200; J1630

== ENCOUNTER 2018-11-10 17:25 | Emergency (ER) | payer OTHER ==
[~2018-11-10] VITALS: Ht 152.4 cm; Wt 109.0 kg
[2018-11-10 17:25] VITALS: BP 122/79
[~2018-11-10 17:25] MED LIST changes: +ONDA4TAB5 PO; +RANI150T14 PO
[2018-11-10 18:29] LABS: BASO # 0.1 10^3/uL (0.0-0.2); BASO % 0.8 % (0.0-1.0); EOS % 0.1 % (0.0-3.0); HEMOGLOBIN 11.8 g/dl (12.0-15.5); LYMPH # 2.9 10^3/uL (1.5-5.0); LYMPH % 35.8 % (24.0-44.0); MEAN CORPUSCULAR HEMOGLOBIN 30.3 pg (27.0-33.0); MEAN CORPUSCULAR HGB CONC 32.8 g/dl (32.0-36.5); MEAN CORPUSCULAR VOLUME 92.5 fl (80.0-96.0); MONO # 0.7 10^3/uL (0.0-0.8); MONO % 8.4 % (0.0-5.0); NEUTROPHILS # 4.3 10^3/uL (1.5-8.5); NEUTROPHILS % 54.6 % (36.0-66.0); PLATELET COUNT, AUTOMATED 266 10^3/uL (150-450); RED BLOOD COUNT 3.89 10^6/uL (4.00-5.40)
[2018-11-10 19:04] LABS: ALBUMIN 3.6 GM/DL (3.2-5.2); ALT/SGPT 60 U/L (12-78); BILIRUBIN,DIRECT < 0.1 MG/DL (0.0-0.2); BILIRUBIN,TOTAL 0.2 MG/DL (0.2-1.0); BLOOD UREA NITROGEN 9 MG/DL (7-18); CALCIUM LEVEL 9.1 MG/DL (8.5-10.1); CARBON DIOXIDE LEVEL 23 MEQ/L (21-32); CHLORIDE LEVEL 111 MEQ/L (98-107); CREATININE FOR GFR 0.79 MG/DL (0.55-1.30); GLOMERULAR FILTRATION RATE > 60.0 (>60); GLUCOSE, FASTING 82 MG/DL (70-100); LIPASE 224 U/L (73-393); SODIUM LEVEL 142 MEQ/L (136-145); TOTAL PROTEIN 6.9 GM/DL (6.4-8.2)
[2018-11-10] MEDS ORDERED: ACETAMINOPHEN 325 MG TAB PO ONE (19:30)
== END 2018-11-10 19:34 | disposition home or self-care (01) ==
LOC: M ED 17:25
DX: R19.7 Diarrhea, unspecified (principal); E03.9 Hypothyroidism, unspecified; I10 Essential (primary) hypertension; Z79.899 Other long term (current) drug therapy

== ENCOUNTER → 2018-11-13 | Outpatient (CLI) | payer OTHER ==
[~2018-11-13] MED LIST changes: +ACET-897 PO; +CATA0.1T PO; +CLOZ50TA PO
[2018-11-13 13:17] LABS: FREE T4 1.1 NG/DL (0.76-1.46); THYROID STIMULATING HORMONE 5.7 uIU/ML (0.358-3.740)
== END ==
LOC: M LAB 10:43
PROVIDERS: ATTEND Nurse Practitioner Family
DX: E03.8 Other specified hypothyroidism (principal)

== ENCOUNTER 2018-11-14 18:22 | Inpatient (IN) | payer OTHER ==
[~2018-11-14] VITALS: Ht 152.4 cm; Wt 107.5 kg
[~2018-11-14 18:22] MED LIST changes: -ACET-897 PO; -CATA0.1T PO; -CLOZ50TA PO
[2018-11-14 18:55] LABS: HEMATOCRIT 38.6 % (36.0-47.0); HEMOGLOBIN 12.7 g/dl (12.0-15.5); MEAN CORPUSCULAR HEMOGLOBIN 30.1 pg (27.0-33.0); MEAN CORPUSCULAR HGB CONC 32.9 g/dl (32.0-36.5); MEAN CORPUSCULAR VOLUME 91.5 fl (80.0-96.0); PLATELET COUNT, AUTOMATED 319 10^3/uL (150-450); RED BLOOD COUNT 4.22 10^6/uL (4.00-5.40); WHITE BLOOD COUNT 7.5 10^3/uL (4.0-10.0)
[2018-11-14 19:25] LABS: ACETAMINOPHEN LEVEL < 2.0 UG/ML (10.0-30.0); ALT/SGPT 40 U/L (12-78); BILIRUBIN,DIRECT < 0.1 MG/DL (0.0-0.2); BILIRUBIN,TOTAL 0.2 MG/DL (0.2-1.0); BLOOD UREA NITROGEN 10 MG/DL (7-18); CALCIUM LEVEL 9.8 MG/DL (8.5-10.1); CARBON DIOXIDE LEVEL 20 MEQ/L (21-32); CHLORIDE LEVEL 110 MEQ/L (98-107); CREATININE FOR GFR 1.05 MG/DL (0.55-1.30); ETHYL ALCOHOL (ETHANOL) < 0.003 % (0.000-0.010); GLOMERULAR FILTRATION RATE > 60.0 (>60); GLUCOSE, FASTING 82 MG/DL (70-100); POTASSIUM SERUM 4.1 MEQ/L (3.5-5.1); SALICYLATE LEVEL < 1.7 MG/DL (5.0-30.0); SODIUM LEVEL 143 MEQ/L (136-145); TOTAL PROTEIN 7.3 GM/DL (6.4-8.2)
[2018-11-14] MEDS ORDERED: CATA0.1T PO (19:45)
[2018-11-14] MEDS ORDERED: CLOZ50TA PO ×2 (19:45→21:34)
[2018-11-14] MEDS ORDERED: ABIL1INJ2 IM (19:45)
[2018-11-14] MEDS ORDERED: cloZAPine 25 MG TAB (S0136) PO ONE (21:00)
[2018-11-14 21:01] LABS: AMPHETAMINES LEVEL URINE NEGATIVE (NEGATIVE); BARBITURATES URINE NEGATIVE (NEGATIVE); BENZODIAZEPINES URINE NEGATIVE (NEGATIVE); CANNABINOIDS URINE NEGATIVE (NEGATIVE); COCAINE METABOLITE URINE NEGATIVE (NEGATIVE); METHADONE URINE NEGATIVE (NEGATIVE); OPIATES URINE NEGATIVE (NEGATIVE); PHENCYCLIDINE URINE NEGATIVE (NEGATIVE)
[2018-11-14] MEDS ORDERED: ACET-897 PO (21:34)
[2018-11-14] MEDS ORDERED: VENTAER INH (21:34)
[2018-11-14] MEDS ORDERED: ZOFR4TAB16 PO (21:35)
[2018-11-14] MEDS ORDERED: MAALOX 30 ML SUSP *UDC PO PRN (21:45)
[2018-11-14] MEDS ORDERED: MOM 30ML SUSPENSION UDC PO PRN (21:45)
[2018-11-14] MEDS ORDERED: ACETAMINOPHEN TAB 650MG DOSE (2X325MG) PO PRN (21:45)
[2018-11-14] MEDS ORDERED: LITHIUM CARBONATE 150 MG CAP PO ONE (22:00)
[2018-11-14] MEDS ORDERED: TOPIRAMATE (TopAMAX) 25 MG TAB PO ONE (22:00)
[2018-11-14] MEDS ORDERED: metFORMIN (GLUCOPHAGE) 1000 MG TABLET PO ONE (22:00)
[2018-11-14] MEDS ORDERED: ALBUTEROL 90 MCG/ACT 8GM HFA INHALER INH PRN (22:45)
[2018-11-14] MEDS ORDERED: ONDANSETRON 4 MG TAB (S0181) PO PRN (22:45)
[2018-11-14] MEDS ORDERED: ABILIFY MAINTENA 400 MG IM SCH (23:00)
[2018-11-14] MEDS ORDERED: LACTAID PO PRN (23:00)
[2018-11-15] VITALS (11 sets, daily range): BP systolic 114–154; BP diastolic 58–88
[2018-11-15 07:01] LABS: BASO # 0.1 10^3/uL (0.0-0.2); BASO % 0.6 % (0.0-1.0); EOS % 0.3 % (0.0-3.0); HEMATOCRIT 38.4 % (36.0-47.0); HEMOGLOBIN 12.6 g/dl (12.0-15.5); LYMPH # 3.4 10^3/uL (1.5-5.0); LYMPH % 44.1 % (24.0-44.0); MEAN CORPUSCULAR HEMOGLOBIN 30.7 pg (27.0-33.0); MEAN CORPUSCULAR HGB CONC 32.8 g/dl (32.0-36.5); MEAN CORPUSCULAR VOLUME 93.7 fl (80.0-96.0); MONO # 0.8 10^3/uL (0.0-0.8); MONO % 10.9 % (0.0-5.0); NEUTROPHILS # 3.4 10^3/uL (1.5-8.5); NEUTROPHILS % 43.7 % (36.0-66.0); PLATELET COUNT, AUTOMATED 269 10^3/uL (150-450); WHITE BLOOD COUNT 7.7 10^3/uL (4.0-10.0)
[2018-11-15] MEDS: metFORMIN (GLUCOPHAGE) 500 MG TAB PO SCH ×2 (08:30→17:54)
[2018-11-15] MEDS: cloNIDine 0.1 MG TAB PO SCH (08:30)
[2018-11-15] MEDS: LITHIUM CARBONATE 450 MG **CR** TAB PO SCH ×2 (08:30→21:09)
[2018-11-15] MEDS: SERTRALINE 100 MG TAB PO SCH (08:30)
[2018-11-15] MEDS ORDERED: RANITIDINE HCL 150 MG PO SCH (09:00)
[2018-11-15] MEDS ORDERED: FLUTICASONE PROPION INH SCH (09:00)
[2018-11-15] MEDS ORDERED: SALMETEROL INH SCH (09:00)
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
[2018-11-15] MEDS ORDERED: LORazepam 2 MG/ML VIAL (J2060) IM STA ×2 (10:31→16:41)
[2018-11-15] MEDS ORDERED: diphenhydrAMINE INJ 50MG/ML VIAL (J1200) IM STA (10:31)
[2018-11-15] MEDS ORDERED: chlorproMAZINE INJ 50MG/2ML AMP (J3230) IM STA (10:31)
--- NOTE | 2018-11-15 10:40 | MHIR ---
General Date: Nov 15, 2018 Time Initiated: 10:34 Restraint Documentation Order/Evaluation FACE TO FACE: yes PHYSICIAN ASSESSMENT: Pt becoming agitated and arguing with staff, attempted to cut her wrist with name bracelet that she ripped up, refused to give to staff, t hrew her glasses at me, when staff attempted to take pt name bracelet she stuffed it in her mouth trying to swallow it and refused to spit it out, laid on the floor and finally staff removed name bracelet from pt's mouth, pt stared screaming and fighting with staff trying to bite them screaming "I want to kill myself." REASON FOR RESTRAINT: Patient poses imminent danger of harming self or others: refer above DE-ESCALATION INTERVENTIONS ATTEMPTED BEFORE USE OF RESTRAINTS: redirection, staff support, prn medications [MECHANICAL AND/OR CHEMICAL] RESTRAINTS USED: both LENGTH OF TIME ORDERED IN RESTRAINTS: 2400 minutes. WHEN TO DISCONTINUE RESTRAINTS: When the patient is no longer a threat to themselves or others. Post evaluation of restraint due in 24 hours. MORALES STANTON DO Nov 15, 2018 10:40 am
[2018-11-15] MEDS: HALOPERIDOL 5 MG TAB PO PRN (13:05)
[2018-11-15] MEDS ORDERED: HALOPERIDOL 5 MG/ML VIAL (J1630) IM STA (16:41)
--- NOTE | 2018-11-15 19:07 | HPEPDOC ---
General Date of Admission Nov 14, 2018 at 21:45 Date of Service: Nov 15, 2018 Chief Complaint The patient is a 23-year-old female admitted with a reason for visit of Unspecified Depression. Source: Patient Exam Limitations: No limitations Timing/Duration: Unsure Severity: Mild Associated Symptoms: Denies Symptoms History of Present Illness This is an unfortunate 23-year-old female admitted to [facility] with suicidal ideation. She has underlying history of depression. She's made a gesture with superficial cutting at her right wrist. Home Medications Scheduled Aripiprazole (Abilify Maintena) 400 Mg Suser.syr, 400 MG IM Q4WKS, (Reported) Clonidine HCl (Catapres) 0.1 Mg Tablet, 0.1 MG PO DAILY, (Reported) Clozapine (Clozapine) 50 Mg Tablet, 50 MG PO QHS, (Reported) Fluticasone Propion/Salmeterol (Airduo Respiclick 232-14 Mcg) 1 Each Aer.pow.ba, 1 PUFF INH BID, (Reported) Lactase (Lactaid) 3,000 Unit Tab, 6,000 UNIT PO ASDIRECTED, (Reported) TAKES 2 TABS ANY TIME PATIENT HAS DAIRY [place] Carbonate ([place] Carbonate ER) 450 Mg Tablet.er, 450 MG PO BID, (Reported) Metformin HCl (Metformin HCl) 500 Mg Tablet, 1,000 MG PO BID, (Reported) Norethindrone-E.estradiol-Iron (Junel Fe 1.5 mg-30 Mcg Tablet) 1 Tab Tab, 1 TAB PO QHS, (Reported) Ranitidine HCl (Ranitidine HCl) 150 Mg Tablet, 1 TAB PO BID, (Reported) Sertraline HCl (Sertraline HCl) 100 Mg Tablet, 200 MG PO DAILY, (Reported) Topiramate (Topiramate) 25 Mg Tablet, 25 MG PO QHS, (Reported) Scheduled PRN Acetaminophen (Tylenol Extra Strength) 500 Mg Tablet, 500 MG PO Q4H PRN for HEADACHE, (Reported) Albuterol Sulfate (Ventolin Hfa) 18 Gm Hfa.aer.ad, 2 PUFF INH Q4H PRN for SHORTNESS OF BREATH, (Reported) Diphenhydramine HCl (Banophen) 50 Mg Capsule, 50 MG PO Q8H PRN for ANXIETY/AGITATION, (Reported) Ondansetron HCl (Zofran) 4 Mg Tablet, 4 MG PO Q6H PRN for NAUSEA, (Reported) Trazodone HCl (Trazodone HCl) 50 Mg Tablet, 50 MG PO QHS PRN for INSOMNIA, (Reported) Allergies Coded Allergies: lactose (Verified Allergy, Unknown, 08/16/18) Past Medical History Medical History Patient reports past medical history of uxa-uqznyob-abgoktvly diabetes mellitus, asthma Surgical History She has surgical history of wisdom tooth extraction Family History Significant Family History: Diabetes Also, nephrolithiasis Social History * Smoker: Denies Alcohol: Denies Drugs: denies Psychosocial History: Depression, Suicidal thoughts 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 moist/pink, Pharynx Normal Neck Exam: Positive: Supple; Negative: JVD, thyromegaly Chest Exam: Positive: Clear to auscultation, Normal air movement Heart Exam: Positive: Rate Normal, Regular Rhythm, Normal S1, Normal S2; Negative: Murmurs, Rubs Abdomen Exam: Positive: Normal bowel sounds, Soft, Other (moderate central obesity, relative to her overall body habitus); Negative: Tenderness, Hepatospenomegaly Extremity Exam: Positive: Normal pulses; Negative: Clubbing, Cyanosis, Edema Skin Exam: Positive: Other skin issue (patient has a number of superficial lacerations to her right wrist. They do not appear infected. She also has tatto os.) Neuro Exam: Positive: Normal Gait, Normal Speech, Cranial Nerves 3-12 NL, Reflexes 2+ Psych Exam: Positive: Mental status NL, Oriented x 3 Vital Signs Vital Signs Date Time Temp Pulse Resp B/P (MAP) Pulse Ox O2 Delivery O2 Flow Rate FiO2 11/15/18 18:45 97.3 86 18 140/77 11/15/18 18:30 96 Laboratory Data Labs 24H Laboratory Tests 2 11/14/18 20:27: Urine Amphetamines Screen NEGATIVE, Urine Benzodiazepines Screen NEGATIVE, Urine Opiates Screen NEGATIVE, Urine Methadone Screen NEGATIVE, Urine Barbiturates Screen NEGATIVE, Urine Phencyclidine Screen NEGATIVE, Urine Cocaine Metabolite Screen NEGATIVE, Urine Cannabinoids Screen NEGATIVE 11/15/18 06:07: Bedside Glucose (Misc Panel) 90 11/15/18 06:44: Immature Granulocyte % (Auto) 0.4, White Blood Count 7.7, Red Blood Count 4.10, Hemoglobin 12.6, Hematocrit 38.4, Mean Corpuscular Volume 93.7, Mean Corpuscular Hemoglobin 30.7, Mean Corpuscular Hemoglobin Concent 32.8, Red Cell Distribution Width 12.7, Platelet Count 269, Neutrophils (%) (Auto) 43.7, Lymphocytes (%) (Auto) 44.1H, Monocytes (%) (Auto) 10.9H, Eosinophils (%) (Auto) 0.3, Basophils (%) (Auto) 0.6, Neutrophils # (Auto) 3.4, Lymphocytes # (Auto) 3.4, Monocytes # (Auto) 0.8, Eosinophils # (Auto) 0.0, Basophils # (Auto) 0.1, Nucleated Red Blood Cells % (auto) 0.0 11/15/18 17:52: Bedside Glucose (Misc Panel) 86 CBC/BMP Laboratory Tests 11/15/18 06:44 Red Blood Count 4.10, Mean Corpuscular Volume 93.7, Mean Corpuscular Hemoglobin 30.7, Mean Corpuscular Hemoglobin Concent 32.8, Red Cell Distribution Width 12.7, Neutrophils (%) (Auto) 43.7, Lymphocytes (%) (Auto) 44.1 H, Monocytes (%) (Auto) 10.9 H, Eosinophils (%) (Auto) 0.3, Basophils (%) (Auto) 0.6, Neutrophils # (Auto) 3.4, Lymphocytes # (Auto) 3.4, Monocytes # (Auto) 0.8, Eosinophils # (Auto) 0.0, Basophils # (Auto) 0.1 Assessment/Plan This is a 23-year-old female admitted to [facility] for depression and suicidal ideation. She has made a gesture to her right wrist. Again, the wounds are superficial. These can be treated with topical Neosporin. Patient has underlying stable medical conditions of ekl-avjunyg-gcfljxzas diabetes mellitus, asthma. Appropriate diabetes management and inhalers have been ordered. If the patient develops exacerbation of her diabetes or her asthma or develops any other acute medical problems, please do not hesitate to reconsult us. Plan / VTE VTE Prophylaxis Ordered?: No VTE Exclusion Mechanical Proph: Low Risk for VTE VTE Exclusion Pharmacological: At Low Risk for VTE Plan Diet: Continue Current Activity: Continue Current Medications: Other Med: (topical ointment for lacerations) Anticipated Discharge: Home AVERY FINN MD Nov 15, 2018 19:07
[2018-11-15] MEDS: raNITIdine SYRUP 150 MG/10 ML UDC PO SCH (21:00)
[2018-11-15] MEDS: NEOSPORIN TOP OINT 15GM TOP SCH (21:00)
[2018-11-15] MEDS: ADVAIR HFA 230/21MCG INHALER INH SCH (21:00)
[2018-11-15] MEDS: TOPIRAMATE (TopAMAX) 25 MG TAB PO SCH (21:08)
[2018-11-15] MEDS: cloZAPine 25 MG TAB (S0136) PO SCH (21:08)
[2018-11-15] MEDS: JUNEL FE PO SCH (21:09)
[2018-11-16] VITALS (7 sets, daily range): BP systolic 121–141; BP diastolic 59–85
[2018-11-16] MEDS: metFORMIN (GLUCOPHAGE) 500 MG TAB PO SCH ×2 (08:00→16:37)
[2018-11-16] MEDS: ADVAIR HFA 230/21MCG INHALER INH SCH ×2 (09:00→21:07)
[2018-11-16] MEDS: NEOSPORIN TOP OINT 15GM TOP SCH ×2 (09:00→21:00)
--- NOTE | 2018-11-16 09:32 | MHPR ---
General Date: Nov 16, 2018 Post-Restraint Evaluation THE OUTCOME OF THE RESTRAINT: good, pt calmed down and went to sleep EFFECTIVENESS OF THE RESTRAINT: Mechanical and/or chemical: both Positive ANY EVIDENCE THAT THE PATIENT WAS AFFECTED EMOTIONALLY: no ANY NEED FOR COUNSELING/ASSISTANCE: no CHANGES IN TREATMENT PLAN: continue current plan RECOMMENDATIONS FOR FUTURE INCIDENTS: continue current plan MORALES STANTON DO Nov 16, 2018 9:32 am
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
[2018-11-16] MEDS: cloNIDine 0.1 MG TAB PO SCH (09:59)
[2018-11-16] MEDS: LITHIUM CARBONATE 450 MG **CR** TAB PO SCH ×2 (09:59→21:07)
[2018-11-16] MEDS: raNITIdine SYRUP 150 MG/10 ML UDC PO SCH ×2 (09:59→21:07)
[2018-11-16] MEDS: SERTRALINE 100 MG TAB PO SCH (09:59)
--- NOTE | 2018-11-16 15:58 | MHIPN ---
DATE: 11/15/2018 DATE OF DICTATION: 11/16/2018 TIME: 4:40 p.m. RESTRAINT DOCUMENTATION [id number]: Yes. PHYSICIAN ASSESSMENT: The patient was agitated, aggressive, yelling and screaming, falling on the ground, throwing things, unable to follow directions. REASON FOR RESTRAINT: The patient was in imminent danger of hurting herself or others. DE-ESCALATION INTERVENTION: Attempted, before use of the restraints, staff redirection, support and medications. Mechanical and chemical restraints used. Haldol 5 mg intramuscular, Ativan 2 mg intramuscular, Benadryl 50 mg intramuscular. LENGTH OF TIME IN RESTRAINTS: 2 hours. WHEN TO DISCONTINUE RESTRAINTS: When the patient is no longer a danger to herself or others.
[2018-11-16] MEDS: HALOPERIDOL 5 MG TAB PO PRN (16:38)
[2018-11-16] MEDS ORDERED: HALOPERIDOL 5 MG/ML VIAL (J1630) IM STA (17:10)
[2018-11-16] MEDS ORDERED: diphenhydrAMINE INJ 50MG/ML VIAL (J1200) IM STA (17:10)
[2018-11-16] MEDS ORDERED: LORazepam 2 MG/ML VIAL (J2060) IM STA (17:10)
--- NOTE | 2018-11-16 20:43 | MHIPN ---
DATE: 11/16/2018 I was called. I was informed that the patient had been agitated; this was after she had been relatively quiet during the day, and slept a fair amount during the day, had had a good night per the staff, but now recently agitated to the point where she was scratching herself, banging her head on the wall, and was not directable, and was placed on four-point restraint. She was also given Haldol 5 mg intramuscular (IM), Benadryl 50 mg IM and Ativan 2 mg IM, as she declined to take the medicines orally. She was somewhat less agitated when she was seen by me, but in restraints, did not engage much in conversation, but was coherent, corrected my pronunciation of her last name, shrugged her shoulders when a couple of other questions were answered. We will maintain observations per protocol, and restraints will be removed as soon as is safely possible.
[2018-11-16] MEDS: TOPIRAMATE (TopAMAX) 25 MG TAB PO SCH (21:06)
[2018-11-16] MEDS: cloZAPine 25 MG TAB (S0136) PO SCH (21:07)
[2018-11-16] MEDS: JUNEL FE PO SCH (21:07)
[2018-11-16] MEDS: traZODone 50 MG TAB PO PRN (21:55)
[2018-11-17] VITALS (8 sets, daily range): BP systolic 113–129; BP diastolic 53–82
[2018-11-17] MEDS: NEOSPORIN TOP OINT 15GM TOP SCH ×2 (09:00→21:00)
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
[2018-11-17] MEDS: raNITIdine SYRUP 150 MG/10 ML UDC PO SCH ×2 (10:29→21:38)
[2018-11-17] MEDS: LITHIUM CARBONATE 450 MG **CR** TAB PO SCH ×2 (10:29→21:38)
[2018-11-17] MEDS: cloNIDine 0.1 MG TAB PO SCH (10:30)
[2018-11-17] MEDS: SERTRALINE 100 MG TAB PO SCH (10:30)
[2018-11-17] MEDS: ADVAIR HFA 230/21MCG INHALER INH SCH ×3 (10:31→22:20)
[2018-11-17] MEDS: metFORMIN (GLUCOPHAGE) 500 MG TAB PO SCH ×2 (10:31→18:02)
[2018-11-17] MEDS: HALOPERIDOL 5 MG TAB PO PRN (12:46)
[2018-11-17] MEDS ORDERED: diphenhydrAMINE INJ 50MG/ML VIAL (J1200) IM STA (20:23)
[2018-11-17] MEDS ORDERED: LORazepam 2 MG/ML VIAL (J2060) IM STA (20:23)
[2018-11-17] MEDS ORDERED: HALOPERIDOL 5 MG/ML VIAL (J1630) IM STA (20:23)
[2018-11-17] MEDS: TOPIRAMATE (TopAMAX) 25 MG TAB PO SCH (21:38)
[2018-11-17] MEDS: traZODone 50 MG TAB PO PRN (21:38)
[2018-11-17] MEDS: JUNEL FE PO SCH (21:38)
[2018-11-17] MEDS: cloZAPine 25 MG TAB (S0136) PO SCH (21:38)
[2018-11-18 06:45] VITALS: BP 118/83
[2018-11-18] MEDS: NEOSPORIN TOP OINT 15GM TOP SCH ×2 (09:00→21:00)
--- NOTE | 2018-11-18 09:13 | MHIR ---
RESTRAINT DOCUMENTATION NOTE DATE: 11/17/2018 TIME: 9:00 p.m. RESTRAINT DOCUMENTATION FACE TO FACE: Yes. PHYSICIAN'S ASSESSMENT: Patient was agitated, aggressive, yelling, screaming, cursing at other patient's, and later on she bit her thumb which was bleeding. REASONS FOR SEEING PATIENT: The patient was in eminent danger to self and others. DE-ESCALATION INTERVENTION: The patient was given support and redirection which failed, and the mechanical and chemical restraints were used. Haldol 5 mg IM, Ativan 2 mg IM, Benadryl 50 mg IM was given. LENGTH OF TIME IN RESTRAINT: 2 hours. WHEN TO DISCONTINUE RESTRAINTS: When the patient is no longer danger to herself or others.
[2018-11-18] MEDS: metFORMIN (GLUCOPHAGE) 500 MG TAB PO SCH ×2 (09:33→17:20)
[2018-11-18] MEDS: SERTRALINE 100 MG TAB PO SCH (09:33)
[2018-11-18] MEDS: raNITIdine SYRUP 150 MG/10 ML UDC PO SCH ×2 (09:33→21:41)
[2018-11-18] MEDS: LITHIUM CARBONATE 450 MG **CR** TAB PO SCH ×2 (09:33→21:42)
[2018-11-18] MEDS: ADVAIR HFA 230/21MCG INHALER INH SCH ×2 (09:34→21:40)
[2018-11-18] MEDS: cloNIDine 0.1 MG TAB PO SCH (09:41)
[2018-11-18 16:25] VITALS: BP 123/73
[2018-11-18] MEDS: ACETAMINOPHEN 500 MG TAB PO PRN (18:41)
[2018-11-18] MEDS: cloZAPine 25 MG TAB (S0136) PO SCH (21:41)
[2018-11-18] MEDS: TOPIRAMATE (TopAMAX) 25 MG TAB PO SCH (21:42)
[2018-11-18] MEDS: KETOROLAC TROMETHAMINE 10 MG TAB PO PRN (21:42)
[2018-11-18] MEDS: JUNEL FE PO SCH (21:44)
[2018-11-18] MEDS: traZODone 50 MG TAB PO PRN (23:11)
[2018-11-18 23:24] VITALS: BP 147/68
[2018-11-19 06:12] VITALS: BP 132/82
--- NOTE | 2018-11-19 07:48 | REPVR ---
EXAM: XR Right Ankle EXAM DATE/TIME: 11/18/2018 8:15 PM CLINICAL HISTORY: 23 years old, female; Patient HX: Ankle hurt; Additional info: C/O increased pain level 8-9. TECHNIQUE: Imaging protocol: XR Right ankle. Views: 3 or more views. COMPARISON: CR Ankle, complete 10/18/2018 8:49 PM FINDINGS: Bones/joints: There is a 5 mm dorsal calcaneal spur. Soft tissues: There is a small linear density adjacent to the posterior malleolus only appreciated on the lateral view. IMPRESSION: 1. No displaced bony fractures seen. 2. Linear calcific density adjacent to the posterior malleolus could represent small avulsion injury at the ligamentous insertion. Electronically signed by: Tam Morales On 11/19/2018 07:48:16 AM
[2018-11-19] MEDS: cloNIDine 0.1 MG TAB PO SCH (08:24)
[2018-11-19] MEDS: raNITIdine SYRUP 150 MG/10 ML UDC PO SCH ×2 (08:24→20:32)
[2018-11-19] MEDS: metFORMIN (GLUCOPHAGE) 500 MG TAB PO SCH ×2 (08:24→17:26)
[2018-11-19] MEDS: LITHIUM CARBONATE 300 MG **CR** TAB PO SCH (08:24)
[2018-11-19] MEDS: SERTRALINE 100 MG TAB PO SCH (08:24)
[2018-11-19] MEDS: ADVAIR HFA 230/21MCG INHALER INH SCH ×2 (08:25→20:33)
[2018-11-19] MEDS: NEOSPORIN TOP OINT 15GM TOP SCH ×2 (08:27→20:31)
[2018-11-19] MEDS: KETOROLAC TROMETHAMINE 10 MG TAB PO PRN ×2 (10:52→17:28)
[2018-11-19] MEDS: ACETAMINOPHEN 500 MG TAB PO PRN (15:46)
[2018-11-19 16:07] VITALS: BP 136/65
[2018-11-19] MEDS: LITHIUM CARBONATE 450 MG **CR** TAB PO SCH (20:32)
[2018-11-19] MEDS: TOPIRAMATE (TopAMAX) 25 MG TAB PO SCH (20:32)
[2018-11-19] MEDS: JUNEL FE PO SCH (20:32)
[2018-11-19] MEDS: cloZAPine 25 MG TAB (S0136) PO SCH (20:32)
[2018-11-19] MEDS: traZODone 50 MG TAB PO PRN (21:36)
[2018-11-20 06:34] VITALS: BP 130/58
[2018-11-20] MEDS: metFORMIN (GLUCOPHAGE) 500 MG TAB PO SCH ×2 (07:42→17:19)
[2018-11-20] MEDS: raNITIdine SYRUP 150 MG/10 ML UDC PO SCH ×2 (09:00→20:08)
[2018-11-20] MEDS: NEOSPORIN TOP OINT 15GM TOP SCH ×2 (09:00→20:04)
[2018-11-20] MEDS: ADVAIR HFA 230/21MCG INHALER INH SCH ×2 (09:11→20:08)
[2018-11-20] MEDS: LITHIUM CARBONATE 300 MG **CR** TAB PO SCH (09:11)
[2018-11-20] MEDS: SERTRALINE 100 MG TAB PO SCH (09:11)
[2018-11-20] MEDS: cloNIDine 0.1 MG TAB PO SCH (09:18)
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
[2018-11-20] MEDS: HALOPERIDOL 10 MG TAB PO PRN (12:02)
[2018-11-20] MEDS: KETOROLAC TROMETHAMINE 10 MG TAB PO PRN (12:05)
[2018-11-20] MEDS: diphenhydrAMINE 50 MG CAP PO PRN (15:05)
--- NOTE | 2018-11-20 16:43 | MHIPN ---
DATE: 11/18/2018 SUBJECTIVE: "Today I am feeling better, my mind is clearer. I am calm." OBJECTIVE: She is a 23-year-old female with a history of schizoaffective disorder, borderline personality disorder with moderate intellectual disability, who was admitted because of suicidal thoughts from [facility] ([facility]). The patient has been continuously aggressive and was coded several times. Yesterday I had to restrain her and medicate her. Today, she reported that she is sleeping well. MENTAL STATUS EXAMINATION: Casually dressed, cooperative. Made good eye contact. Psychomotor activity is normal. Speech rate, rhythm, and volume are good. Somewhat irritable. Her insight and judgment are limited. Denied auditory or visual hallucinations. Denied suicidal or homicidal ideas. Memory for immediate, remote and recent are good. DIAGNOSES: 1. Schizoaffective disorder. 2. Moderate intellectual disability. 3. Borderline personality disorder. VITAL SIGNS: Temperature 97.9, pulse 72, respirations 14, blood pressure 118/83. REVIEW OF SYSTEMS: Denied chest pain or palpitations. Denied abdominal pain or dysuria. Denied shortness of breath, cough. Denied dizziness, numbness, tingling. Gait is normal. PLAN: Continue individual, group and milieu therapy. Psychoeducation was done. Increase lithium to 600 mg in the morning and 450 mg at night. Her lithium level on 11/14/2018 was 0.78. Coordination of care was done with nursing staff.
[2018-11-20 16:49] VITALS: BP 130/67
[2018-11-20] MEDS: LITHIUM CARBONATE 450 MG **CR** TAB PO SCH (20:09)
[2018-11-20] MEDS: TOPIRAMATE (TopAMAX) 25 MG TAB PO SCH (20:09)
[2018-11-20] MEDS: JUNEL FE PO SCH (20:09)
[2018-11-20] MEDS: cloZAPine 25 MG TAB (S0136) PO SCH (20:09)
[2018-11-20] MEDS: traZODone 50 MG TAB PO PRN (21:18)
[2018-11-21 07:15] VITALS: BP 116/61
[2018-11-21] MEDS: metFORMIN (GLUCOPHAGE) 500 MG TAB PO SCH (07:48)
[2018-11-21] MEDS: KETOROLAC TROMETHAMINE 10 MG TAB PO PRN (08:13)
[2018-11-21] MEDS: LITHIUM CARBONATE 300 MG **CR** TAB PO SCH (08:13)
[2018-11-21] MEDS: raNITIdine SYRUP 150 MG/10 ML UDC PO SCH ×2 (08:13→20:24)
[2018-11-21] MEDS: SERTRALINE 100 MG TAB PO SCH (08:13)
[2018-11-21] MEDS: ADVAIR HFA 230/21MCG INHALER INH SCH ×2 (08:14→20:24)
[2018-11-21] MEDS: NEOSPORIN TOP OINT 15GM TOP SCH ×2 (08:17→20:24)
[2018-11-21] MEDS: cloNIDine 0.1 MG TAB PO SCH (08:17)
--- NOTE | 2018-11-21 10:37 | MHIPNPDOC ---
[facility] Progress Note Progress Note DATE OF SERVICE: 11/21/18 HISTORY: She is a 23-year-old female with a history of schizoaffective disorder, borderline personality disorder with moderate intellectual disability, who was admitted because of suicidal thoughts from [facility] Living Services ([facility]). The patient has been continuously ag gressive and was coded several times. Yesterday I had to restrain her and medicate her. Today, she reported that she is sleeping well. MENTAL STATUS EXAMINATION: Casually dressed, cooperative. Made good eye contact. Psychomotor activity is normal. Speech rate, rhythm, and volume are good. Somewhat irritable. Her insight and judgment are limited. Denied auditory or visual hallucinations. Denied suicidal or homicidal ideas. Memory for immediate, remote and recent are good. DIAGNOSES: 1. Schizoaffective disorder. 2. Moderate intellectual disability. 3. Borderline personality disorder. ASSESSMENT:Pt coded once during the weekend by Dr. Fortune for "Patient was agitated, aggressive, yelling, screaming, cursing at other patient's, and later on she bit her thumb which was bleeding.." Pt seen today and states she's ready to come off 1:1 sitter as is no longer suicidal. Advised that if she codes again she will be put back on 1:1 sitter and restricted to her room for 24hr with no groups based on her behavior contract which she states she understands. States she doesn't believe her meds are working well enough and think something needs to be changed as continues to struggle with depression and anxiety. Advised pt will increase zoloft for improved treatment of anxiety and add haldol tid for improved treatment of irritabilty, reactive agitation, and sporadic AH as has been beneficial for pt in the past. Currently denies SI/HI, AVH. VITAL SIGNS: Temperature 97.9, pulse 72, respirations 14, blood pressure 118/83. REVIEW OF SYSTEMS: Denied chest pain or palpitations. Denied abdominal pain or dysuria. Denied shortness of breath, cough. Denied dizziness, numbness, tingling. Gait is normal. PLAN: increase zoloft, add haldol tid lithium 600 mg in the morning and 450 mg at night. Abilify Maintena 400 MG IM Q4WKS Clonidine 0.1 MG PO DAILY Clozapine 50 MG PO QHS Sertraline 250 MG PO DAILY, Topiramate 25 MG PO QHS haldol 10mg q4hr prn anxiety/agitation atival 2mg q4hr prn anxiety/agitation throrazine 50mg q4hr prn anxiety/agitation haldol 10mg tid Vital Signs Vital Signs Date Time Temp Pulse Resp B/P (MAP) Pulse Ox O2 Delivery O2 Flow Rate FiO2 11/21/18 08:17 128/81 11/21/18 07:15 98.0 89 16 11/17/18 22:00 95 Laboratory Data 24H Labs Laboratory Tests 2 11/20/18 16:54: Bedside Glucose (Misc Panel) 84 11/21/18 05:55: Bedside Glucose (Misc Panel) 79 Current Medications Current Medications Medications (Trade) Dose Ordered Sig/Beth Route PRN Reason Start Time Stop Time Status Last Admin Dose Admin Acetaminophen (Tylenol Tab) 500 mg Q4HP PRN PO HEADACHE 11/14/18 22:45 11/19/18 15:46 Acetaminophen (Tylenol Tab) 650 mg Q6HP PRN PO HEADACHE or DISCOMFORT 11/14/18 21:45 Cancel Al Hydrox/Mg Hydrox/Simethicone (Mylanta) 30 ml Q4HP PRN PO HEARTBURN/INDIGESTION 11/14/18 21:45 Albuterol Sulfate (Proventil, Ventolin Hfa) 2 puff Q4HP PRN INH SHORTNESS OF BREATH 11/14/18 22:45 Aripiprazole (Abilify Maintena) 400 mg Q28D@0900 IM 12/05/18 09:00 Chlorpromazine HCl (Thorazine) 100 mg STAT STAT IM 11/15/18 10:31 11/15/18 10:35 DC 11/15/18 10:52 Clonidine HCl (Catapres) 0.1 mg DAILY PO 11/15/18 09:00 11/21/18 08:17 Clozapine (Clozaril) 50 mg QHS PO 11/15/18 21:00 11/20/18 20:09 Diphenhydramine HCl (Benadryl) 50 mg Q8HP PRN PO ANXIETY/AGITATION 11/14/18 22:45 11/20/18 15:05 Diphenhydramine HCl (Benadryl) 50 mg STAT STAT IM 11/16/18 17:10 11/16/18 17:13 DC 11/16/18 17:21 Diphenhydramine HCl (Benadryl) 50 mg STAT STAT IM 11/17/18 20:23 11/17/18 20:25 DC 11/17/18 20:34 Diphenhydramine HCl (Benadryl) 100 mg STAT STAT IM 11/15/18 10:31 11/15/18 10:34 DC 11/15/18 10:52 Haloperidol (Haldol) 5 mg STAT STAT IM 11/15/18 16:41 11/15/18 16:43 DC 11/15/18 16:51 Haloperidol (Haldol) 5 mg STAT STAT IM 11/16/18 17:10 11/16/18 17:13 DC 11/16/18 17:20 Haloperidol (Haldol) 5 mg STAT STAT IM 11/17/18 20:23 11/17/18 20:25 DC 11/17/18 20:34 Haloperidol (Haldol) 10 mg Q4HP PRN PO ANXIETY/AGITATION 11/15/18 13:00 11/20/18 12:00 DC 11/17/18 12:46 Haloperidol (Haldol) 10 mg Q4HP PRN PO ANXIETY/AGITATION 11/20/18 12:00 11/20/18 12:02 Home Med (Med Rec Complete!) ASDIRECTED XX 11/14/18 21:45 11/14/18 21:45 DC Ketorolac Tromethamine (ToRADol) 10 mg Q6HP PRN PO PAIN 11/18/18 20:00 11/23/18 19:59 11/21/18 08:13 [place] Carbonate (Eskalith-Cr) 450 mg BID PO 11/15/18 09:00 11/18/18 13:37 DC 11/18/18 09:33 [place] Carbonate (Eskalith-Cr) 450 mg QHS PO 11/18/18 21:00 11/20/18 20:09 [place] Carbonate (Lithobid Cr) 600 mg QAM PO 11/19/18 09:00 11/21/18 08:13 Lorazepam (Ativan) 2 mg Q4HP PRN PO ANXIETY/AGITATION 11/14/18 21:45 Lorazepam (Ativan) 2 mg STAT STAT IM 11/15/18 10:31 11/15/18 10:36 DC 11/15/18 10:51 Lorazepam (Ativan) 2 mg STAT STAT IM 11/15/18 16:41 11/15/18 16:43 DC 11/15/18 16:51 Lorazepam (Ativan) 2 mg STAT STAT IM 11/16/18 17:10 11/16/18 17:13 DC 11/16/18 17:21 Lorazepam (Ativan) 2 mg STAT STAT IM 11/17/18 20:23 11/17/18 20:25 DC 11/17/18 20:34 Magnesium Hydroxide (Milk Of Magnesia) 30 ml DAILYPRN PRN PO CONSTIPATION 11/14/18 21:45 Metformin HCl (Glucophage) 1,000 mg BID@0800,1800 PO 11/15/18 08:00 11/21/18 07:48 Miscellaneous (Unresolved Patient Own Med Order) SEE LABEL COMMENTS DAILY XX 11/15/18 09:00 11/15/18 14:41 DC Miscellaneous (Unresolved Patient Own Med Order) SEE LABEL COMMENTS DAILY XX 11/15/18 09:00 11/15/18 14:41 DC Miscellaneous (Unresolved Patient Own Med Order) SEE LABEL COMMENTS DAILY XX 11/15/18 09:00 11/15/18 14:41 DC Miscellaneous (Unresolved Patient Own Med Order) SEE LABEL COMMENTS DAILY XX 11/15/18 09:00 11/15/18 16:09 DC Miscellaneous (Unresolved Patient Own Med Order) SEE LABEL COMMENTS DAILY XX 11/15/18 09:00 11/15/18 16:09 DC Neomycin/ Polymyxin/ Bacitracin (Neosporin) to right wrist lacerations BID TOP 11/15/18 21:00 Ondansetron HCl (Zofran) 4 mg Q6HP PRN PO NAUSEA 11/14/18 22:45 Patient Own Medication (Patient'S Own Med) 1 TAB BID PO 11/15/18 09:00 11/15/18 14:40 DC Patient Own Medication (Patient'S Own Med) 1 puff BID INH 11/15/18 09:00 11/15/18 14:40 DC Patient Own Medication (Patient'S Own Med) 1 tablet QHS PO 11/15/18 21:00 11/20/18 20:09 Patient Own Medication (Patient'S Own Med) 2 tabs any time Pt has dairy ASDIRECTED PRN PO WHEN PATIENT HAS DAIRY 11/14/18 23:00 Patient Own Medication (Patient'S Own Med) Abilify Maintena 400 mg... Q28D IM 11/14/18 23:00 11/15/18 14:40 DC Ranitidine HCl (ZANTAC Syrup) 150 mg BID PO 11/15/18 21:00 11/21/18 08:13 Salmeterol Xinafoate/ Fluticasone (Advair Hfa 230/ 21) 2 puff BID INH 11/15/18 21:00 11/21/18 08:14 Sertraline HCl (Zoloft) 200 mg DAILY PO 11/15/18 09:00 11/21/18 08:13 Topiramate (TopAMAX) 25 mg QHS PO 11/15/18 21:00 11/20/18 20:09 Trazodone HCl (Desyrel) 50 mg QHSP PRN PO INSOMNIA 11/14/18 21:45 11/20/18 21:18 Allergies Coded Allergies: lactose (Verified Allergy, Unknown, 08/16/18) MORALES STANTON DO Nov 21, 2018 9:14 am
[2018-11-21] MEDS: HALOPERIDOL 10 MG TAB PO SCH ×3 (10:51→20:23)
[2018-11-21] MEDS ORDERED: SERTRALINE HCL 50 MG TAB PO ONE (12:00)
[2018-11-21 16:51] VITALS: BP 119/58
[2018-11-21] MEDS: metFORMIN (GLUCOPHAGE) 1000 MG TABLET PO SCH (17:10)
[2018-11-21] MEDS: LITHIUM CARBONATE 450 MG **CR** TAB PO SCH (20:23)
[2018-11-21] MEDS: cloZAPine 25 MG TAB (S0136) PO SCH (20:23)
[2018-11-21] MEDS: TOPIRAMATE (TopAMAX) 25 MG TAB PO SCH (20:24)
[2018-11-21] MEDS: JUNEL FE PO SCH (20:24)
[2018-11-21] MEDS: traZODone 50 MG TAB PO PRN (21:18)
[2018-11-21] MEDS: ACETAMINOPHEN 500 MG TAB PO PRN (21:18)
[2018-11-22 06:40] VITALS: BP 131/72
[2018-11-22] MEDS: metFORMIN (GLUCOPHAGE) 1000 MG TABLET PO SCH ×2 (07:41→17:07)
[2018-11-22] MEDS: ADVAIR HFA 230/21MCG INHALER INH SCH ×2 (08:28→20:03)
[2018-11-22] MEDS: raNITIdine SYRUP 150 MG/10 ML UDC PO SCH ×2 (08:29→20:04)
[2018-11-22] MEDS: SERTRALINE 100 MG TAB PO SCH (08:29)
[2018-11-22] MEDS: ACETAMINOPHEN 500 MG TAB PO PRN ×2 (08:30→19:58)
[2018-11-22] MEDS: cloNIDine 0.1 MG TAB PO SCH (08:30)
[2018-11-22] MEDS: HALOPERIDOL 10 MG TAB PO SCH ×3 (08:30→20:04)
[2018-11-22] MEDS: PILL CUTTER 1 EACH XX PRN (08:30)
[2018-11-22] MEDS: LITHIUM CARBONATE 300 MG **CR** TAB PO SCH (08:31)
[2018-11-22] MEDS: NEOSPORIN TOP OINT 15GM TOP SCH ×2 (08:31→20:13)
--- NOTE | 2018-11-22 11:10 | MHIPNPDOC ---
[facility] Progress Note Progress Note DATE OF SERVICE: 11/22/18 HISTORY: She is a 23-year-old female with a history of schizoaffective disorder, borderline personality disorder with moderate intellectual disability, who was admitted because of suicidal thoughts from Transitional Living Services ([facility]). The patient has been continuously ag gressive and was coded several times. Yesterday I had to restrain her and medicate her. Today, she reported that she is sleeping well. MENTAL STATUS EXAMINATION: Casually dressed, cooperative. Made good eye contact. Psychomotor activity is normal. Speech rate, rhythm, and volume are good. States her mood is good and affect is euthymic. She is cooperative and bright. Her insight and judgment are limited. Denied auditory or visual hallucinations. Denied suicidal or homicidal ideas. Memory for immediate, remote and recent are good. DIAGNOSES: 1. Schizoaffective disorder. 2. Moderate intellectual disability. 3. Borderline personality disorder. ASSESSMENT:Pt not coded during the night and per treatment team is doing very well behaviorally even after being taken off 1:1 sitter at her request Pt seen today and states she's doing good and is enjoying being able to socialize in the milieu and attend groups with good behavior. States she's tolerating her medications and feels it's beneficial. States she feels ready to return to [facility] tomorrow as she denies SI and AH with increase in zoloft and haldol. Currently denies SI/HI, AVH. VITAL SIGNS: Temperature 97.9, pulse 72, respirations 14, blood pressure 118/83. REVIEW OF SYSTEMS: Denied chest pain or palpitations. Denied abdominal pain or dysuria. Denied shortness of breath, cough. Denied dizziness, numbness, tingling. Gait is normal. PLAN: d/c back to [facility] tomorrow lithium 600 mg in the morning and 450 mg at night. Abilify Maintena 400 MG IM Q4WKS Clonidine 0.1 MG PO DAILY Clozapine 50 MG PO QHS Sertraline 250 MG PO DAILY, Topiramate 25 MG PO QHS haldol 10mg q4hr prn anxiety/agitation atival 2mg q4hr prn anxiety/agitation throrazine 50mg q4hr prn anxiety/agitation haldol 10mg tid Vital Signs Vital Signs Date Time Temp Pulse Resp B/P (MAP) Pulse Ox O2 Delivery O2 Flow Rate FiO2 11/22/18 08:30 129/59 11/22/18 06:40 98.4 74 14 11/17/18 22:00 95 Laboratory Data 24H Labs Laboratory Tests 2 11/21/18 17:07: Bedside Glucose (Misc Panel) 82 11/22/18 05:47: Bedside Glucose (Misc Panel) 75 Current Medications Current Medications Medications (Trade) Dose Ordered Sig/Beth Route PRN Reason Start Time Stop Time Status Last Admin Dose Admin Acetaminophen (Tylenol Tab) 500 mg Q4HP PRN PO HEADACHE 11/14/18 22:45 11/22/18 08:30 Acetaminophen (Tylenol Tab) 650 mg Q6HP PRN PO HEADACHE or DISCOMFORT 11/14/18 21:45 Cancel Al Hydrox/Mg Hydrox/Simethicone (Mylanta) 30 ml Q4HP PRN PO HEARTBURN/INDIGESTION 11/14/18 21:45 Albuterol Sulfate (Proventil, Ventolin Hfa) 2 puff Q4HP PRN INH SHORTNESS OF BREATH 11/14/18 22:45 Aripiprazole (Abilify Maintena) 400 mg Q28D@0900 IM 12/05/18 09:00 Chlorpromazine HCl (Thorazine) 100 mg STAT STAT IM 11/15/18 10:31 11/15/18 10:35 DC 11/15/18 10:52 Clonidine HCl (Catapres) 0.1 mg DAILY PO 11/15/18 09:00 11/22/18 08:30 Clozapine (Clozaril) 50 mg QHS PO 11/15/18 21:00 11/21/18 20:23 Diphenhydramine HCl (Benadryl) 50 mg Q8HP PRN PO ANXIETY/AGITATION 11/14/18 22:45 11/20/18 15:05 Diphenhydramine HCl (Benadryl) 50 mg STAT STAT IM 11/16/18 17:10 11/16/18 17:13 DC 11/16/18 17:21 Diphenhydramine HCl (Benadryl) 50 mg STAT STAT IM 11/17/18 20:23 11/17/18 20:25 DC 11/17/18 20:34 Diphenhydramine HCl (Benadryl) 100 mg STAT STAT IM 11/15/18 10:31 11/15/18 10:34 DC 11/15/18 10:52 Haloperidol (Haldol) 5 mg STAT STAT IM 11/15/18 16:41 11/15/18 16:43 DC 11/15/18 16:51 Haloperidol (Haldol) 5 mg STAT STAT IM 11/16/18 17:10 11/16/18 17:13 DC 11/16/18 17:20 Haloperidol (Haldol) 5 mg STAT STAT IM 11/17/18 20:23 11/17/18 20:25 DC 11/17/18 20:34 Haloperidol (Haldol) 10 mg Q4HP PRN PO ANXIETY/AGITATION 11/15/18 13:00 11/20/18 12:00 DC 11/17/18 12:46 Haloperidol (Haldol) 10 mg Q4HP PRN PO ANXIETY/AGITATION 11/20/18 12:00 11/20/18 12:02 Haloperidol (Haldol) 10 mg TID PO 11/21/18 09:00 11/22/18 08:30 Home Med (Med Rec Complete!) ASDIRECTED XX 11/14/18 21:45 11/14/18 21:45 DC Ketorolac Tromethamine (ToRADol) 10 mg Q6HP PRN PO PAIN 11/18/18 20:00 11/23/18 19:59 11/21/18 08:13 [place] Carbonate (Eskalith-Cr) 450 mg BID PO 11/15/18 09:00 11/18/18 13:37 DC 11/18/18 09:33 [place] Carbonate (Eskalith-Cr) 450 mg QHS PO 11/18/18 21:00 11/21/18 20:23 [place] Carbonate (Lithobid Cr) 600 mg QAM PO 11/19/18 09:00 11/22/18 08:31 Lorazepam (Ativan) 2 mg Q4HP PRN PO ANXIETY/AGITATION 11/14/18 21:45 Lorazepam (Ativan) 2 mg STAT STAT IM 11/15/18 10:31 11/15/18 10:36 DC 11/15/18 10:51 Lorazepam (Ativan) 2 mg STAT STAT IM 11/15/18 16:41 11/15/18 16:43 DC 11/15/18 16:51 Lorazepam (Ativan) 2 mg STAT STAT IM 11/16/18 17:10 11/16/18 17:13 DC 11/16/18 17:21 Lorazepam (Ativan) 2 mg STAT STAT IM 11/17/18 20:23 11/17/18 20:25 DC 11/17/18 20:34 Magnesium Hydroxide (Milk Of Magnesia) 30 ml DAILYPRN PRN PO CONSTIPATION 11/14/18 21:45 Metformin HCl (Glucophage) 1,000 mg BID@0800,1800 PO 11/15/18 08:00 11/21/18 09:38 DC 11/21/18 07:48 Metformin HCl (Glucophage) 1,000 mg BID@0800,1800 PO 11/21/18 18:00 11/22/18 07:41 Miscellaneous (Unresolved Clarification Entry) SEE LABEL COMMENTS DAILY XX 11/22/18 09:00 Miscellaneous (Unresolved Patient Own Med Order) SEE LABEL COMMENTS DAILY XX 11/15/18 09:00 11/15/18 14:41 DC Miscellaneous (Unresolved Patient Own Med Order) SEE LABEL COMMENTS DAILY XX 11/15/18 09:00 11/15/18 14:41 DC Miscellaneous (Unresolved Patient Own Med Order) SEE LABEL COMMENTS DAILY XX 11/15/18 09:00 11/15/18 14:41 DC Miscellaneous (Unresolved Patient Own Med Order) SEE LABEL COMMENTS DAILY XX 11/15/18 09:00 11/15/18 16:09 DC Miscellaneous (Unresolved Patient Own Med Order) SEE LABEL COMMENTS DAILY XX 11/15/18 09:00 11/15/18 16:09 DC Neomycin/ Polymyxin/ Bacitracin (Neosporin) to right wrist lacerations BID TOP 11/15/18 21:00 Ondansetron HCl (Zofran) 4 mg Q6HP PRN PO NAUSEA 11/14/18 22:45 Patient Own Medication (Patient'S Own Med) 1 TAB BID PO 11/15/18 09:00 11/15/18 14:40 DC Patient Own Medication (Patient'S Own Med) 1 puff BID INH 11/15/18 09:00 11/15/18 14:40 DC Patient Own Medication (Patient'S Own Med) 1 tablet QHS PO 11/15/18 21:00 11/21/18 20:24 Patient Own Medication (Patient'S Own Med) 2 tabs any time Pt has dairy ASDIRECTED PRN PO WHEN PATIENT HAS DAIRY 11/14/18 23:00 Patient Own Medication (Patient'S Own Med) Tresa Maintena 400 mg... Q28D IM 11/14/18 23:00 11/15/18 14:40 DC Ranitidine HCl (ZANTAC Syrup) 150 mg BID PO 11/15/18 21:00 11/22/18 08:29 Salmeterol Xinafoate/ Fluticasone (Advair Hfa 230/ 21) 2 puff BID INH 11/15/18 21:00 11/22/18 08:28 Sertraline HCl (Zoloft) 200 mg DAILY PO 11/15/18 09:00 11/21/18 10:37 DC 11/21/18 08:13 Sertraline HCl (Zoloft) 250 mg DAILY PO 11/22/18 09:00 11/22/18 08:29 Topiramate (TopAMAX) 25 mg QHS PO 11/15/18 21:00 11/21/18 20:24 Trazodone HCl (Desyrel) 50 mg QHSP PRN PO INSOMNIA 11/14/18 21:45 11/21/18 21:18 Allergies Coded Allergies: lactose (Verified Allergy, Unknown, 08/16/18) MORALES STANTON DO Nov 22, 2018 11:10 am
[2018-11-22] MEDS: BENZTROPINE 1 MG TAB PO SCH ×2 (15:00→20:04)
[2018-11-22 16:49] VITALS: BP 128/72
[2018-11-22] MEDS: LITHIUM CARBONATE 450 MG **CR** TAB PO SCH (20:04)
[2018-11-22] MEDS: cloZAPine 25 MG TAB (S0136) PO SCH (20:04)
[2018-11-22] MEDS: JUNEL FE PO SCH (20:04)
[2018-11-22] MEDS: TOPIRAMATE (TopAMAX) 25 MG TAB PO SCH (20:04)
[2018-11-22] MEDS: KETOROLAC TROMETHAMINE 10 MG TAB PO PRN (20:54)
[2018-11-22] MEDS: diphenhydrAMINE 50 MG CAP PO PRN (21:05)
[2018-11-22] MEDS: LORazepam 1 MG TAB PO PRN (21:05)
[2018-11-22] MEDS: HALOPERIDOL 10 MG TAB PO PRN (21:05)
[2018-11-22] MEDS: traZODone 50 MG TAB PO PRN (22:21)
[2018-11-23] VITALS (7 sets, daily range): BP systolic 102–134; BP diastolic 60–68
[2018-11-23] MEDS: NEOSPORIN TOP OINT 15GM TOP SCH ×2 (09:00→22:27)
[2018-11-23] MEDS: PILL CUTTER 1 EACH XX PRN (09:44)
[2018-11-23] MEDS: ADVAIR HFA 230/21MCG INHALER INH SCH ×2 (09:44→22:24)
[2018-11-23] MEDS: cloNIDine 0.1 MG TAB PO SCH (09:45)
[2018-11-23] MEDS: metFORMIN (GLUCOPHAGE) 1000 MG TABLET PO SCH ×2 (09:45→17:10)
[2018-11-23] MEDS: BENZTROPINE 1 MG TAB PO SCH ×2 (09:45→22:24)
[2018-11-23] MEDS: LITHIUM CARBONATE 300 MG **CR** TAB PO SCH (09:45)
[2018-11-23] MEDS: HALOPERIDOL 10 MG TAB PO SCH ×3 (09:45→21:00)
[2018-11-23] MEDS: SERTRALINE 100 MG TAB PO SCH (09:46)
[2018-11-23] MEDS: raNITIdine SYRUP 150 MG/10 ML UDC PO SCH ×2 (09:47→22:24)
--- NOTE | 2018-11-23 10:00 | MHIPNPDOC ---
[facility] Progress Note Progress Note DATE OF SERVICE: 11/23/18 HISTORY: She is a 23-year-old female with a history of schizoaffective disorder, borderline personality disorder with moderate intellectual disability, who was admitted because of suicidal thoughts from [facility] Services ([facility]). The patient has been continuously ag gressive and was coded several times. Yesterday I had to restrain her and medicate her. Today, she reported that she is sleeping well. MENTAL STATUS EXAMINATION: Casually dressed, cooperative. Made good eye contact. Psychomotor activity is normal. Speech rate, rhythm, and volume are good. States her mood is good and affect is euthymic. She is cooperative and bright. Her insight and judgment are limited. Denied auditory or visual hallucinations. Vague suicidal or homicidal thoughts mostly due to events/other pt's on the unit. Memory for immediate, remote and recent are good. DIAGNOSES: 1. Schizoaffective disorder. 2. Moderate intellectual disability. 3. Borderline personality disorder. ASSESSMENT:Pt put back on 1:1 sitter last night for safety and given oral prn medications which allowed her to calm down and fall asleep after a verbal argument with another female pt on the unit who had just been admitted that day (female pt very behaviorally reactive). She was not coded though. Pt seen today and states feels upset and sensitive after events yesterday and feels for her safety she still needs to be one 1:1 sitter and not be discharged to work on managing her anxiety, emotional reactivity, spontaneous SI that is usually related to circumstances or surroundings. Pt advised to stay away and/or walk away from female pt causing problems for her and continue to work on her be havior control as she has been doing well this week thus far. States OK. States she's tolerating her medications and feels it's beneficial. States she will tell me when she's ready to return to [facility] tomorrow. Currently denies AVH. VITAL SIGNS: Temperature 97.9, pulse 72, respirations 14, blood pressure 118/83. REVIEW OF SYSTEMS: Denied chest pain or palpitations. Denied abdominal pain or dysuria. Denied shortness of breath, cough. Denied dizziness, numbness, tingling. Gait is normal. PLAN: d/c back to [facility] tomorrow lithium 600 mg in the morning and 450 mg at night. Abilify Maintena 400 MG IM Q4WKS Clonidine 0.1 MG PO DAILY Clozapine 50 MG PO QHS Sertraline 250 MG PO DAILY, Topiramate 25 MG PO QHS haldol 10mg q4hr prn anxiety/agitation atival 2mg q4hr prn anxiety/agitation throrazine 50mg q4hr prn anxiety/agitation haldol 10mg tid Vital Signs Vital Signs Date Time Temp Pulse Resp B/P (MAP) Pulse Ox O2 Delivery O2 Flow Rate FiO2 11/23/18 06:31 98.6 67 14 102/64 (77) 11/17/18 22:00 95 Laboratory Data 24H Labs Laboratory Tests 2 11/22/18 17:03: Bedside Glucose (Misc Panel) 87 11/22/18 20:57: Bedside Glucose (Misc Panel) 114H 11/23/18 06:14: Bedside Glucose (Misc Panel) 80 Current Medications Current Medications Medications (Trade) Dose Ordered Sig/Beth Route PRN Reason Start Time Stop Time Status Last Admin Dose Admin Acetaminophen (Tylenol Tab) 500 mg Q4HP PRN PO HEADACHE 11/14/18 22:45 11/22/18 19:58 Acetaminophen (Tylenol Tab) 650 mg Q6HP PRN PO HEADACHE or DISCOMFORT 11/14/18 21:45 Cancel Al Hydrox/Mg Hydrox/Simethicone (Mylanta) 30 ml Q4HP PRN PO HEARTBURN/INDIGESTION 11/14/18 21:45 Albuterol Sulfate (Proventil, Ventolin Hfa) 2 puff Q4HP PRN INH SHORTNESS OF BREATH 11/14/18 22:45 Aripiprazole (Abilify Maintena) 400 mg Q28D@0900 IM 12/05/18 09:00 Benztropine Mesylate (Cogentin) 1 mg BID PO 11/22/18 15:00 11/22/18 20:04 Chlorpromazine HCl (Thorazine) 100 mg STAT STAT IM 11/15/18 10:31 11/15/18 10:35 DC 11/15/18 10:52 Clonidine HCl (Catapres) 0.1 mg DAILY PO 11/15/18 09:00 11/22/18 08:30 Clozapine (Clozaril) 50 mg QHS PO 11/15/18 21:00 11/22/18 20:04 Diphenhydramine HCl (Benadryl) 50 mg Q8HP PRN PO ANXIETY/AGITATION 11/14/18 22:45 11/22/18 21:05 Diphenhydramine HCl (Benadryl) 50 mg STAT STAT IM 11/16/18 17:10 11/16/18 17:13 DC 11/16/18 17:21 Diphenhydramine HCl (Benadryl) 50 mg STAT STAT IM 11/17/18 20:23 11/17/18 20:25 DC 11/17/18 20:34 Diphenhydramine HCl (Benadryl) 100 mg STAT STAT IM 11/15/18 10:31 11/15/18 10:34 DC 11/15/18 10:52 Haloperidol (Haldol) 5 mg STAT STAT IM 11/15/18 16:41 11/15/18 16:43 DC 11/15/18 16:51 Haloperidol (Haldol) 5 mg STAT STAT IM 11/16/18 17:10 11/16/18 17:13 DC 11/16/18 17:20 Haloperidol (Haldol) 5 mg STAT STAT IM 11/17/18 20:23 11/17/18 20:25 DC 11/17/18 20:34 Haloperidol (Haldol) 10 mg Q4HP PRN PO ANXIETY/AGITATION 11/15/18 13:00 11/20/18 12:00 DC 11/17/18 12:46 Haloperidol (Haldol) 10 mg Q4HP PRN PO ANXIETY/AGITATION 11/20/18 12:00 11/22/18 21:05 Haloperidol (Haldol) 10 mg TID PO 11/21/18 09:00 11/22/18 20:04 Home Med (Med Rec Complete!) ASDIRECTED XX 11/14/18 21:45 11/14/18 21:45 DC Ketorolac Tromethamine (ToRADol) 10 mg Q6HP PRN PO PAIN 11/18/18 20:00 11/23/18 19:59 11/22/18 20:54 [place] Carbonate (Eskalith-Cr) 450 mg BID PO 11/15/18 09:00 11/18/18 13:37 DC 11/18/18 09:33 [place] Carbonate (Eskalith-Cr) 450 mg QHS PO 11/18/18 21:00 11/22/18 20:04 [place] Carbonate (Lithobid Cr) 600 mg QAM PO 11/19/18 09:00 11/22/18 08:31 Lorazepam (Ativan) 2 mg Q4HP PRN PO ANXIETY/AGITATION 11/14/18 21:45 11/22/18 21:05 Lorazepam (Ativan) 2 mg STAT STAT IM 11/15/18 10:31 11/15/18 10:36 DC 11/15/18 10:51 Lorazepam (Ativan) 2 mg STAT STAT IM 11/15/18 16:41 11/15/18 16:43 DC 11/15/18 16:51 Lorazepam (Ativan) 2 mg STAT STAT IM 11/16/18 17:10 11/16/18 17:13 DC 11/16/18 17:21 Lorazepam (Ativan) 2 mg STAT STAT IM 11/17/18 20:23 11/17/18 20:25 DC 11/17/18 20:34 Magnesium Hydroxide (Milk Of Magnesia) 30 ml DAILYPRN PRN PO CONSTIPATION 11/14/18 21:45 Metformin HCl (Glucophage) 1,000 mg BID@0800,1800 PO 11/15/18 08:00 11/21/18 09:38 DC 11/21/18 07:48 Metformin HCl (Glucophage) 1,000 mg BID@0800,1800 PO 11/21/18 18:00 11/22/18 17:07 Miscellaneous (Unresolved Clarification Entry) SEE LABEL COMMENTS DAILY XX 11/22/18 09:00 Miscellaneous (Unresolved Patient Own Med Order) SEE LABEL COMMENTS DAILY XX 11/15/18 09:00 11/15/18 14:41 DC Miscellaneous (Unresolved Patient Own Med Order) SEE LABEL COMMENTS DAILY XX 11/15/18 09:00 11/15/18 14:41 DC Miscellaneous (Unresolved Patient Own Med Order) SEE LABEL COMMENTS DAILY XX 11/15/18 09:00 11/15/18 14:41 DC Miscellaneous (Unresolved Patient Own Med Order) SEE LABEL COMMENTS DAILY XX 11/15/18 09:00 11/15/18 16:09 DC Miscellaneous (Unresolved Patient Own Med Order) SEE LABEL COMMENTS DAILY XX 11/15/18 09:00 11/15/18 16:09 DC Neomycin/ Polymyxin/ Bacitracin (Neosporin) to right wrist lacerations BID TOP 11/15/18 21:00 Ondansetron HCl (Zofran) 4 mg Q6HP PRN PO NAUSEA 11/14/18 22:45 Patient Own Medication (Patient'S Own Med) 1 TAB BID PO 11/15/18 09:00 11/15/18 14:40 DC Patient Own Medication (Patient'S Own Med) 1 puff BID INH 11/15/18 09:00 11/15/18 14:40 DC Patient Own Medication (Patient'S Own Med) 1 tablet QHS PO 11/15/18 21:00 11/22/18 20:04 Patient Own Medication (Patient'S Own Med) 2 tabs any time Pt has dairy ASDIRECTED PRN PO WHEN PATIENT HAS DAIRY 11/14/18 23:00 Patient Own Medication (Patient'S Own Med) Abilify Maintena 400 mg... Q28D IM 11/14/18 23:00 11/15/18 14:40 DC Ranitidine HCl (ZANTAC Syrup) 150 mg BID PO 11/15/18 21:00 11/22/18 20:04 Salmeterol Xinafoate/ Fluticasone (Advair Hfa 230/ 21) 2 puff BID INH 11/15/18 21:00 11/22/18 20:03 Sertraline HCl (Zoloft) 200 mg DAILY PO 11/15/18 09:00 11/21/18 10:37 DC 11/21/18 08:13 Sertraline HCl (Zoloft) 250 mg DAILY PO 11/22/18 09:00 11/22/18 08:29 Topiramate (TopAMAX) 25 mg QHS PO 11/15/18 21:00 11/22/18 20:04 Trazodone HCl (Desyrel) 50 mg QHSP PRN PO INSOMNIA 11/14/18 21:45 11/22/18 22:21 Allergies Coded Allergies: lactose (Verified Allergy, Unknown, 08/16/18) MORALES STANTON DO Nov 23, 2018 10:00 am
[2018-11-23] MEDS ORDERED: LORazepam 2 MG/ML VIAL (J2060) IM STA (21:23)
[2018-11-23] MEDS ORDERED: HALOPERIDOL 5 MG/ML VIAL (J1630) IM STA (21:23)
[2018-11-23] MEDS ORDERED: diphenhydrAMINE INJ 50MG/ML VIAL (J1200) IM STA (21:23)
--- NOTE | 2018-11-23 22:05 | MHIR ---
General Date: Nov 23, 2018 Time Initiated: 22:01 Restraint Documentation Order/Evaluation FACE TO FACE: yes PHYSICIAN ASSESSMENT: Pt scratching her arm then biting herself screaming she wanted to hurt herself then hitting her head on the wall REASON FOR RESTRAINT: Patient poses imminent danger of harming self or others: see above DE-ESCALATION INTERVENTIONS ATTEMPTED BEFORE USE OF RESTRAINTS: staff support, redirection, prn medications [MECHANICAL AND/OR CHEMICAL] RESTRAINTS USED: mechanical and chemical (haldol 5mg, ativan 3mg, benadryl 50mg IM) LENGTH OF TIME ORDERED IN RESTRAINTS: 240 minutes. WHEN TO DISCONTINUE RESTRAINTS: When the patient is no longer a threat to themselves or others. Post evaluation of restraint due in 24 hours. MORALES STANTON DO Nov 23, 2018 10:05 pm
[2018-11-23] MEDS ORDERED: chlorproMAZINE 25 MG TAB (Q0161) PO ONE (22:15)
[2018-11-23] MEDS: JUNEL FE PO SCH (22:22)
[2018-11-23] MEDS: cloZAPine 25 MG TAB (S0136) PO SCH (22:23)
[2018-11-23] MEDS: TOPIRAMATE (TopAMAX) 25 MG TAB PO SCH (22:23)
[2018-11-23] MEDS: LITHIUM CARBONATE 450 MG **CR** TAB PO SCH (22:23)
[2018-11-23] MEDS: PERCOCET 5MG/325MG TAB PO PRN (22:23)
[2018-11-23] MEDS: traZODone 50 MG TAB PO PRN (22:27)
[2018-11-24 06:07] VITALS: BP 121/66
--- NOTE | 2018-11-24 08:55 | MHPR ---
General Date: Nov 24, 2018 Time: 08:54 Post-Restraint Evaluation THE OUTCOME OF THE RESTRAINT: good, pt called down and went to sleep EFFECTIVENESS OF THE RESTRAINT: Mechanical and/or chemical: Positive. ANY EVIDENCE THAT THE PATIENT WAS AFFECTED EMOTIONALLY: no ANY NEED FOR COUNSELING/ASSISTANCE: no CHANGES IN TREATMENT PLAN: continue current plan RECOMMENDATIONS FOR FUTURE INCIDENTS: continue current plan MORALES STANTON DO Nov 24, 2018 8:55 am
[2018-11-24] MEDS: raNITIdine SYRUP 150 MG/10 ML UDC PO SCH ×2 (09:00→21:20)
--- NOTE | 2018-11-24 09:02 | MHIPNPDOC ---
[facility] Progress Note Progress Note DATE OF SERVICE: 11/24/18 HISTORY: She is a 23-year-old female with a history of schizoaffective disorder, borderline personality disorder with moderate intellectual disability, who was admitted because of suicidal thoughts from Trans[facility] Living Services ([facility]). The patient has been continuously ag gressive and was coded several times. Yesterday I had to restrain her and medicate her. Today, she reported that she is sleeping well. MENTAL STATUS EXAMINATION: Unable to assess. Hospital scrubs, cooperative. Made good eye contact. Psychomotor activity is normal. Speech rate, rhythm, and volume are good. States her mood is good and affect is euthymic. She is cooperative and bright. Her insight and judgment are limited. Denied auditory or visual hallucinations. Vague suicidal or homicidal thoughts mostly due to events/other pt's on the unit. Memory for immediate, remote and recent are good. DIAGNOSES: 1. Schizoaffective disorder. 2. Moderate intellectual disability. 3. Borderline personality disorder. ASSESSMENT:Pt coded last night by myself for "scratching her arm then biting herself screaming she wanted to hurt herself then hitting her head on the wall." Per staff last night pt had also been stating prior to coding that she was going to return to [facility] tonight, change her clothes, then come back to the ED with SI for readmission. Pt possible purposely starting endorsins SI and harming herself to be coded so she wouldn't be d/c today. She remains on a 1:1 sitter for safety. She is currently still asleep in her room and left sleep due to behavioral problems and reactivity when awake. Unable to assess further. VITAL SIGNS: see below REVIEW OF SYSTEMS: Denied chest pain or palpitations. Denied abdominal pain or dysuria. Denied shortness of breath, cough. Denied dizziness, numbness, tingling. Gait is normal. PLAN: continue plan lithium 600 mg in the morning and 450 mg at night. Abilify Maintena 400 MG IM Q4WKS Clonidine 0.1 MG PO DAILY Clozapine 50 MG PO QHS Sertraline 250 MG PO DAILY, Topiramate 25 MG PO QHS haldol 10mg q4hr prn anxiety/agitation atival 2mg q4hr prn anxiety/agitation throrazine 50mg q4hr prn anxiety/agitation haldol 10mg tid Vital Signs Vital Signs Date Time Temp Pulse Resp B/P (MAP) Pulse Ox O2 Delivery O2 Flow Rate FiO2 11/24/18 06:07 97.1 65 18 121/66 (84) 11/23/18 22:00 98 Laboratory Data 24H Labs Laboratory Tests 2 11/23/18 17:07: Bedside Glucose (Misc Panel) 109H 11/24/18 06:41: Bedside Glucose (Misc Panel) 80 Current Medications Current Medications Medications (Trade) Dose Ordered Sig/Beth Route PRN Reason Start Time Stop Time Status Last Admin Dose Admin Acetaminophen (Tylenol Tab) 500 mg Q4HP PRN PO HEADACHE 11/14/18 22:45 11/22/18 19:58 Acetaminophen (Tylenol Tab) 650 mg Q6HP PRN PO HEADACHE or DISCOMFORT 11/14/18 21:45 Cancel Al Hydrox/Mg Hydrox/Simethicone (Mylanta) 30 ml Q4HP PRN PO HEARTBURN/INDIGESTION 11/14/18 21:45 Albuterol Sulfate (Proventil, Ventolin Hfa) 2 puff Q4HP PRN INH SHORTNESS OF BREATH 11/14/18 22:45 Aripiprazole (Abilify Maintena) 400 mg Q28D@0900 IM 12/05/18 09:00 Benztropine Mesylate (Cogentin) 1 mg BID PO 11/22/18 15:00 11/23/18 22:24 Chlorpromazine HCl (Thorazine) 100 mg STAT STAT IM 11/15/18 10:31 11/15/18 10:35 DC 11/15/18 10:52 Clonidine HCl (Catapres) 0.1 mg DAILY PO 11/15/18 09:00 11/23/18 09:45 Clozapine (Clozaril) 50 mg QHS PO 11/15/18 21:00 11/23/18 22:23 Diphenhydramine HCl (Benadryl) 50 mg Q8HP PRN PO ANXIETY/AGITATION 11/14/18 22:45 11/22/18 21:05 Diphenhydramine HCl (Benadryl) 50 mg STAT STAT IM 11/16/18 17:10 11/16/18 17:13 DC 11/16/18 17:21 Diphenhydramine HCl (Benadryl) 50 mg STAT STAT IM 11/17/18 20:23 11/17/18 20:25 DC 11/17/18 20:34 Diphenhydramine HCl (Benadryl) 50 mg STAT STAT IM 11/23/18 21:23 11/23/18 21:27 DC 11/23/18 21:38 Diphenhydramine HCl (Benadryl) 100 mg STAT STAT IM 11/15/18 10:31 11/15/18 10:34 DC 11/15/18 10:52 Haloperidol (Haldol) 5 mg STAT STAT IM 11/15/18 16:41 11/15/18 16:43 DC 11/15/18 16:51 Haloperidol (Haldol) 5 mg STAT STAT IM 11/16/18 17:10 11/16/18 17:13 DC 11/16/18 17:20 Haloperidol (Haldol) 5 mg STAT STAT IM 11/17/18 20:23 11/17/18 20:25 DC 11/17/18 20:34 Haloperidol (Haldol) 10 mg Q4HP PRN PO ANXIETY/AGITATION 11/15/18 13:00 11/20/18 12:00 DC 11/17/18 12:46 Haloperidol (Haldol) 10 mg Q4HP PRN PO ANXIETY/AGITATION 11/20/18 12:00 11/22/18 21:05 Haloperidol (Haldol) 10 mg STAT STAT IM 11/23/18 21:23 11/23/18 21:27 DC 11/23/18 21:38 Haloperidol (Haldol) 10 mg TID PO 11/21/18 09:00 11/23/18 17:10 Home Med (Med Rec Complete!) ASDIRECTED XX 11/14/18 21:45 11/14/18 21:45 DC Ketorolac Tromethamine (ToRADol) 10 mg Q6HP PRN PO PAIN 11/18/18 20:00 11/23/18 19:59 DC 11/22/18 20:54 [place] Carbonate (Eskalith-Cr) 450 mg BID PO 11/15/18 09:00 11/18/18 13:37 DC 11/18/18 09:33 [place] Carbonate (Eskalith-Cr) 450 mg QHS PO 11/18/18 21:00 11/23/18 22:23 [place] Carbonate (Lithobid Cr) 600 mg QAM PO 11/19/18 09:00 11/23/18 09:45 Lorazepam (Ativan) 2 mg Q4HP PRN PO ANXIETY/AGITATION 11/14/18 21:45 11/22/18 21:05 Lorazepam (Ativan) 2 mg STAT STAT IM 11/15/18 10:31 11/15/18 10:36 DC 11/15/18 10:51 Lorazepam (Ativan) 2 mg STAT STAT IM 11/15/18 16:41 11/15/18 16:43 DC 11/15/18 16:51 Lorazepam (Ativan) 2 mg STAT STAT IM 11/16/18 17:10 11/16/18 17:13 DC 11/16/18 17:21 Lorazepam (Ativan) 2 mg STAT STAT IM 11/17/18 20:23 11/17/18 20:25 DC 11/17/18 20:34 Lorazepam (Ativan) 2 mg STAT STAT IM 11/23/18 21:23 11/23/18 21:27 DC 11/23/18 21:38 Magnesium Hydroxide (Milk Of Magnesia) 30 ml DAILYPRN PRN PO CONSTIPATION 11/14/18 21:45 Metformin HCl (Glucophage) 1,000 mg BID@0800,1800 PO 11/15/18 08:00 11/21/18 09:38 DC 11/21/18 07:48 Metformin HCl (Glucophage) 1,000 mg BID@0800,1800 PO 11/21/18 18:00 11/23/18 17:10 Miscellaneous (Unresolved Clarification Entry) SEE LABEL COMMENTS DAILY XX 11/22/18 09:00 Miscellaneous (Unresolved Patient Own Med Order) SEE LABEL COMMENTS DAILY XX 11/15/18 09:00 11/15/18 14:41 DC Miscellaneous (Unresolved Patient Own Med Order) SEE LABEL COMMENTS DAILY XX 11/15/18 09:00 11/15/18 14:41 DC Miscellaneous (Unresolved Patient Own Med Order) SEE LABEL COMMENTS DAILY XX 11/15/18 09:00 11/15/18 14:41 DC Miscellaneous (Unresolved Patient Own Med Order) SEE LABEL COMMENTS DAILY XX 11/15/18 09:00 11/15/18 16:09 DC Miscellaneous (Unresolved Patient Own Med Order) SEE LABEL COMMENTS DAILY XX 11/15/18 09:00 11/15/18 16:09 DC Neomycin/ Polymyxin/ Bacitracin (Neosporin) to right wrist lacerations BID TOP 11/15/18 21:00 11/23/18 22:27 Ondansetron HCl (Zofran) 4 mg Q6HP PRN PO NAUSEA 11/14/18 22:45 Oxycodone/ Acetaminophen (Percocet 5mg/ 325mg Tablet) 1 tab Q4HP PRN PO MILD/MODERATE PAIN (PS 1-7) 11/23/18 20:45 11/23/18 22:23 Patient Own Medication (Patient'S Own Med) 1 TAB BID PO 11/15/18 09:00 11/15/18 14:40 DC Patient Own Medication (Patient'S Own Med) 1 puff BID INH 11/15/18 09:00 11/15/18 14:40 DC Patient Own Medication (Patient'S Own Med) 1 tablet QHS PO 11/15/18 21:00 11/23/18 22:22 Patient Own Medication (Patient'S Own Med) 2 tabs any time Pt has dairy ASDIRECTED PRN PO WHEN PATIENT HAS DAIRY 11/14/18 23:00 Patient Own Medication (Patient'S Own Med) Abilify Maintena 400 mg... Q28D IM 11/14/18 23:00 11/15/18 14:40 DC Ranitidine HCl (ZANTAC Syrup) 150 mg BID PO 11/15/18 21:00 11/23/18 22:24 Salmeterol Xinafoate/ Fluticasone (Advair Hfa 230/ 21) 2 puff BID INH 11/15/18 21:00 11/23/18 22:24 Sertraline HCl (Zoloft) 200 mg DAILY PO 11/15/18 09:00 11/21/18 10:37 DC 11/21/18 08:13 Sertraline HCl (Zoloft) 250 mg DAILY PO 11/22/18 09:00 11/23/18 09:46 Topiramate (TopAMAX) 25 mg QHS PO 11/15/18 21:00 11/23/18 22:23 Trazodone HCl (Desyrel) 50 mg QHSP PRN PO INSOMNIA 11/14/18 21:45 11/23/18 22:27 Allergies Coded Allergies: lactose (Verified Allergy, Unknown, 08/16/18) MORALES STANTON DO Nov 24, 2018 9:01 am
[2018-11-24] MEDS: PILL CUTTER 1 EACH XX PRN (09:37)
[2018-11-24] MEDS: NEOSPORIN TOP OINT 15GM TOP SCH ×2 (09:38→21:28)
[2018-11-24] MEDS: ADVAIR HFA 230/21MCG INHALER INH SCH ×2 (09:38→21:19)
[2018-11-24] MEDS: BENZTROPINE 1 MG TAB PO SCH ×2 (09:39→21:22)
[2018-11-24] MEDS: metFORMIN (GLUCOPHAGE) 1000 MG TABLET PO SCH ×2 (09:39→17:49)
[2018-11-24] MEDS: LITHIUM CARBONATE 300 MG **CR** TAB PO SCH (09:39)
[2018-11-24] MEDS: HALOPERIDOL 10 MG TAB PO SCH ×3 (09:39→21:20)
[2018-11-24] MEDS: SERTRALINE 100 MG TAB PO SCH (09:40)
[2018-11-24] MEDS: cloNIDine 0.1 MG TAB PO SCH (09:46)
[2018-11-24 15:48] VITALS: BP 130/63
[2018-11-24] MEDS: JUNEL FE PO SCH (21:20)
[2018-11-24] MEDS: PERCOCET 5MG/325MG TAB PO PRN (21:22)
[2018-11-24] MEDS: TOPIRAMATE (TopAMAX) 25 MG TAB PO SCH (21:22)
[2018-11-24] MEDS: cloZAPine 25 MG TAB (S0136) PO SCH (21:23)
[2018-11-24] MEDS: LITHIUM CARBONATE 450 MG **CR** TAB PO SCH (21:23)
[2018-11-24] MEDS: traZODone 50 MG TAB PO PRN (21:27)
[2018-11-25 06:19] VITALS: BP 93/51
[2018-11-25] MEDS: raNITIdine SYRUP 150 MG/10 ML UDC PO SCH ×2 (08:13→20:51)
[2018-11-25] MEDS: PILL CUTTER 1 EACH XX PRN (08:13)
[2018-11-25] MEDS: HALOPERIDOL 10 MG TAB PO SCH ×3 (08:14→20:52)
[2018-11-25] MEDS: NEOSPORIN TOP OINT 15GM TOP SCH ×2 (08:14→21:29)
[2018-11-25] MEDS: LITHIUM CARBONATE 300 MG **CR** TAB PO SCH (08:15)
[2018-11-25] MEDS: cloNIDine 0.1 MG TAB PO SCH (08:15)
[2018-11-25] MEDS: metFORMIN (GLUCOPHAGE) 1000 MG TABLET PO SCH ×2 (08:15→17:14)
[2018-11-25] MEDS: BENZTROPINE 1 MG TAB PO SCH ×2 (08:16→20:54)
[2018-11-25] MEDS: SERTRALINE 100 MG TAB PO SCH (08:16)
[2018-11-25] MEDS: ADVAIR HFA 230/21MCG INHALER INH SCH ×2 (08:19→20:51)
[2018-11-25] MEDS: PERCOCET 5MG/325MG TAB PO PRN ×2 (15:29→21:29)
[2018-11-25 16:31] VITALS: BP 123/69
[2018-11-25] MEDS: cloZAPine 25 MG TAB (S0136) PO SCH (20:52)
[2018-11-25] MEDS: TOPIRAMATE (TopAMAX) 25 MG TAB PO SCH (20:52)
[2018-11-25] MEDS: LITHIUM CARBONATE 450 MG **CR** TAB PO SCH (20:52)
[2018-11-25] MEDS: JUNEL FE PO SCH (20:54)
[2018-11-25] MEDS: traZODone 50 MG TAB PO PRN (21:29)
[2018-11-26 06:56] VITALS: BP 135/82
[2018-11-26] MEDS: raNITIdine SYRUP 150 MG/10 ML UDC PO SCH ×2 (08:24→21:39)
[2018-11-26] MEDS: NEOSPORIN TOP OINT 15GM TOP SCH ×2 (08:24→21:00)
[2018-11-26] MEDS: PILL CUTTER 1 EACH XX PRN (08:28)
[2018-11-26] MEDS: BENZTROPINE 1 MG TAB PO SCH ×2 (08:29→21:40)
[2018-11-26] MEDS: SERTRALINE 100 MG TAB PO SCH (08:30)
[2018-11-26] MEDS: HALOPERIDOL 10 MG TAB PO SCH ×3 (08:30→21:43)
[2018-11-26] MEDS: metFORMIN (GLUCOPHAGE) 1000 MG TABLET PO SCH ×2 (08:30→17:17)
[2018-11-26] MEDS: PERCOCET 5MG/325MG TAB PO PRN ×2 (08:31→21:50)
[2018-11-26] MEDS: LITHIUM CARBONATE 300 MG **CR** TAB PO SCH (08:31)
[2018-11-26] MEDS: ADVAIR HFA 230/21MCG INHALER INH SCH ×2 (08:32→21:39)
[2018-11-26] MEDS: cloNIDine 0.1 MG TAB PO SCH (08:32)
--- NOTE | 2018-11-26 09:31 | MHIPN ---
DATE: 11/25/2018 CHIEF COMPLAINT: Says feels okay. SUBJECTIVE: Seen for followup, in the presence of staff. Says feels okay, but did not elaborate much. Indicates today has been good. Moods are better, slept good last night. MENTAL STATUS EXAM: Neat and superficially cooperative. No agitation. No psychomotor retardation. Answers questions briefly, coherently and logically. Currently denies any suicidal thoughts or intents. No evidence of any homicidal ideas or intents. No overt psychosis at present. Judgment and insight remain compromised. ASSESSMENT: Schizoaffective disorder. Borderline personality disorder. Moderate intellectual disability. PLAN: Continue current care, observation, including 1:1 observation. VITAL SIGNS: Blood pressure 123/69. Pulse 82. Temperature 98.7.
[2018-11-26] MEDS: LORazepam 1 MG TAB PO PRN (15:49)
[2018-11-26 16:10] VITALS: BP 133/63
--- NOTE | 2018-11-26 16:34 | MHIPN ---
DATE: 11/26/2018 CHIEF COMPLAINT: Says is doing okay. SUBJECTIVE: Is seen for followup in the presence of staff. Says is doing okay, but did not elaborate much. Says slept fairly well. Has had breakfast this morning. Does say the voices remain and she does not think that they are intensified. MENTAL STATUS EXAMINATION: She is lying in bed. She is generally cooperative. No overt agitation. No abnormal movements noted. Denies any suicidal thoughts or intents. Does not appear internally preoccupied. Judgment and insight remain compromised. ASSESSMENT: 1. Schizoaffective disorder. PLAN: Continue current care, including one on one observations, and she will be seeing the treatment team tomorrow. If similar steadiness continues, may need to modify the one on one. VITAL SIGNS: Blood pressure 135/82, pulse 69, temperature 98.7.
[2018-11-26 18:51] VITALS: BP 128/64
[2018-11-26] MEDS: traZODone 50 MG TAB PO PRN (21:39)
[2018-11-26] MEDS: TOPIRAMATE (TopAMAX) 25 MG TAB PO SCH (21:40)
[2018-11-26] MEDS: JUNEL FE PO SCH (21:40)
[2018-11-26] MEDS: cloZAPine 25 MG TAB (S0136) PO SCH (21:40)
[2018-11-26] MEDS: LITHIUM CARBONATE 450 MG **CR** TAB PO SCH (21:43)
[2018-11-27 06:29] VITALS: BP 133/77
[2018-11-27] MEDS: raNITIdine SYRUP 150 MG/10 ML UDC PO SCH ×2 (09:00→20:27)
[2018-11-27] MEDS: NEOSPORIN TOP OINT 15GM TOP SCH ×2 (09:00→20:41)
[2018-11-27] MEDS: LITHIUM CARBONATE 300 MG **CR** TAB PO SCH (09:18)
[2018-11-27] MEDS: HALOPERIDOL 10 MG TAB PO SCH ×3 (09:18→20:28)
[2018-11-27] MEDS: BENZTROPINE 1 MG TAB PO SCH ×2 (09:18→20:28)
[2018-11-27] MEDS: metFORMIN (GLUCOPHAGE) 1000 MG TABLET PO SCH ×2 (09:18→17:17)
[2018-11-27] MEDS: cloNIDine 0.1 MG TAB PO SCH (09:23)
[2018-11-27] MEDS: ADVAIR HFA 230/21MCG INHALER INH SCH ×2 (09:31→20:29)
[2018-11-27] MEDS: SERTRALINE 100 MG TAB PO SCH (09:31)
--- NOTE | 2018-11-27 10:49 | MHIPNPDOC ---
[facility] Progress Note Progress Note DATE OF SERVICE: 11/27/18 HISTORY: She is a 23-year-old female with a history of schizoaffective disorder, borderline personality disorder with moderate intellectual disability, who was admitted because of suicidal thoughts from [facility] ([facility]). The patient has been continuously ag gressive and was coded several times. Yesterday I had to restrain her and medicate her. Today, she reported that she is sleeping well. MENTAL STATUS EXAMINATION: Unable to assess. Hospital scrubs, cooperative. Made good eye contact. Psychomotor activity is normal. Speech rate, rhythm, and volume are good. States her mood is good and affect is euthymic. She is cooperative and bright. Her insight and judgment are limited. Denied auditory or visual hallucinations. Vague suicidal or homicidal thoughts mostly due to events/other pt's on the unit. Memory for immediate, remote and recent are good. DIAGNOSES: 1. Schizoaffective disorder. 2. Moderate intellectual disability. 3. Borderline personality disorder. ASSESSMENT:Pt did not need to be coded over the weekend. States she's "ok" today and is ready to come off her sitter today. Per staff pt did well over the weekend. Pt denies SI today. She remains on a 1:1 sitter for safety. She is currently still asleep in her room and has no complaints. Unable to assess further. VITAL SIGNS: see below REVIEW OF SYSTEMS: Denied chest pain or palpitations. Denied abdominal pain or dysuria. Denied shortness of breath, cough. Denied dizziness, numbness, tingling. Gait is normal. PLAN: continue plan lithium 600 mg in the morning and 450 mg at night. Davidfsubhash Maintena 400 MG IM Q4WKS Clonidine 0.1 MG PO DAILY Clozapine 50 MG PO QHS Sertraline 250 MG PO DAILY, Topiramate 25 MG PO QHS haldol 10mg q4hr prn anxiety/agitation atival 2mg q4hr prn anxiety/agitation throrazine 50mg q4hr prn anxiety/agitation haldol 10mg tid Vital Signs Vital Signs Date Time Temp Pulse Resp B/P (MAP) Pulse Ox O2 Delivery O2 Flow Rate FiO2 11/27/18 09:23 126/72 11/27/18 06:29 98.3 100 18 11/23/18 22:00 98 Laboratory Data 24H Labs Laboratory Tests 2 9/22/19 17:14: Bedside Glucose (Misc Panel) 121H 11/27/18 06:04: Bedside Glucose (Misc Panel) 74 Current Medications Current Medications Medications (Trade) Dose Ordered Sig/Beth Route PRN Reason Start Time Stop Time Status Last Admin Dose Admin Acetaminophen (Tylenol Tab) 500 mg Q4HP PRN PO HEADACHE 11/14/18 22:45 11/22/18 19:58 Acetaminophen (Tylenol Tab) 650 mg Q6HP PRN PO HEADACHE or DISCOMFORT 11/14/18 21:45 Cancel Al Hydrox/Mg Hydrox/Simethicone (Mylanta) 30 ml Q4HP PRN PO HEARTBURN/INDIGESTION 11/14/18 21:45 Albuterol Sulfate (Proventil, Ventolin Hfa) 2 puff Q4HP PRN INH SHORTNESS OF BREATH 11/14/18 22:45 Aripiprazole (Abilify Maintena) 400 mg Q28D@0900 IM 12/05/18 09:00 Benztropine Mesylate (Cogentin) 1 mg BID PO 11/22/18 15:00 11/27/18 09:18 Chlorpromazine HCl (Thorazine) 100 mg STAT STAT IM 11/15/18 10:31 11/15/18 10:35 DC 11/15/18 10:52 Clonidine HCl (Catapres) 0.1 mg DAILY PO 11/15/18 09:00 11/27/18 09:23 Clozapine (Clozaril) 50 mg QHS PO 11/15/18 21:00 11/26/18 21:40 Diphenhydramine HCl (Benadryl) 50 mg Q8HP PRN PO ANXIETY/AGITATION 11/14/18 22:45 11/22/18 21:05 Diphenhydramine HCl (Benadryl) 50 mg STAT STAT IM 11/16/18 17:10 11/16/18 17:13 DC 11/16/18 17:21 Diphenhydramine HCl (Benadryl) 50 mg STAT STAT IM 11/17/18 20:23 11/17/18 20:25 DC 11/17/18 20:34 Diphenhydramine HCl (Benadryl) 50 mg STAT STAT IM 11/23/18 21:23 11/23/18 21:27 DC 11/23/18 21:38 Diphenhydramine HCl (Benadryl) 100 mg STAT STAT IM 11/15/18 10:31 11/15/18 10:34 DC 11/15/18 10:52 Haloperidol (Haldol) 5 mg STAT STAT IM 11/15/18 16:41 11/15/18 16:43 DC 11/15/18 16:51 Haloperidol (Haldol) 5 mg STAT STAT IM 11/16/18 17:10 11/16/18 17:13 DC 11/16/18 17:20 Haloperidol (Haldol) 5 mg STAT STAT IM 11/17/18 20:23 11/17/18 20:25 DC 11/17/18 20:34 Haloperidol (Haldol) 10 mg Q4HP PRN PO ANXIETY/AGITATION 11/15/18 13:00 11/20/18 12:00 DC 11/17/18 12:46 Haloperidol (Haldol) 10 mg Q4HP PRN PO ANXIETY/AGITATION 11/20/18 12:00 11/22/18 21:05 Haloperidol (Haldol) 10 mg STAT STAT IM 11/23/18 21:23 11/23/18 21:27 DC 11/23/18 21:38 Haloperidol (Haldol) 10 mg TID PO 11/21/18 09:00 11/27/18 09:18 Home Med (Med Rec Complete!) ASDIRECTED XX 11/14/18 21:45 11/14/18 21:45 DC Ketorolac Tromethamine (ToRADol) 10 mg Q6HP PRN PO PAIN 11/18/18 20:00 11/23/18 19:59 DC 11/22/18 20:54 [place] Carbonate (Eskalith-Cr) 450 mg BID PO 11/15/18 09:00 11/18/18 13:37 DC 11/18/18 09:33 [place] Carbonate (Eskalith-Cr) 450 mg QHS PO 11/18/18 21:00 11/26/18 21:43 [place] Carbonate (Lithobid Cr) 600 mg QAM PO 11/19/18 09:00 11/27/18 09:18 Lorazepam (Ativan) 2 mg Q4HP PRN PO ANXIETY/AGITATION 11/14/18 21:45 11/26/18 15:49 Lorazepam (Ativan) 2 mg STAT STAT IM 11/15/18 10:31 11/15/18 10:36 DC 11/15/18 10:51 Lorazepam (Ativan) 2 mg STAT STAT IM 11/15/18 16:41 11/15/18 16:43 DC 11/15/18 16:51 Lorazepam (Ativan) 2 mg STAT STAT IM 11/16/18 17:10 11/16/18 17:13 DC 11/16/18 17:21 Lorazepam (Ativan) 2 mg STAT STAT IM 11/17/18 20:23 11/17/18 20:25 DC 11/17/18 20:34 Lorazepam (Ativan) 2 mg STAT STAT IM 11/23/18 21:23 11/23/18 21:27 DC 11/23/18 21:38 Magnesium Hydroxide (Milk Of Magnesia) 30 ml DAILYPRN PRN PO CONSTIPATION 11/14/18 21:45 Metformin HCl (Glucophage) 1,000 mg BID@0800,1800 PO 11/15/18 08:00 11/21/18 09:38 DC 11/21/18 07:48 Metformin HCl (Glucophage) 1,000 mg BID@0800,1800 PO 11/21/18 18:00 11/27/18 09:18 Miscellaneous (Unresolved Clarification Entry) SEE LABEL COMMENTS DAILY XX 11/22/18 09:00 11/26/18 15:04 DC Miscellaneous (Unresolved Clarification Entry) SEE LABEL COMMENTS DAILY XX 11/26/18 09:00 11/27/18 07:54 DC Miscellaneous (Unresolved Clarification Entry) SEE LABEL COMMENTS DAILY XX 11/27/18 09:00 Miscellaneous (Unresolved Patient Own Med Order) SEE LABEL COMMENTS DAILY XX 11/15/18 09:00 11/15/18 14:41 DC Miscellaneous (Unresolved Patient Own Med Order) SEE LABEL COMMENTS DAILY XX 11/15/18 09:00 11/15/18 14:41 DC Miscellaneous (Unresolved Patient Own Med Order) SEE LABEL COMMENTS DAILY XX 11/15/18 09:00 11/15/18 14:41 DC Miscellaneous (Unresolved Patient Own Med Order) SEE LABEL COMMENTS DAILY XX 11/15/18 09:00 11/15/18 16:09 DC Miscellaneous (Unresolved Patient Own Med Order) SEE LABEL COMMENTS DAILY XX 11/15/18 09:00 11/15/18 16:09 DC Neomycin/ Polymyxin/ Bacitracin (Neosporin) to right wrist lacerations BID TOP 11/15/18 21:00 11/25/18 21:29 Ondansetron HCl (Zofran) 4 mg Q6HP PRN PO NAUSEA 11/14/18 22:45 Oxycodone/ Acetaminophen (Percocet 5mg/ 325mg Tablet) 1 tab Q4HP PRN PO MILD/MODERATE PAIN (PS 1-7) 11/23/18 20:45 11/26/18 21:50 Patient Own Medication (Patient'S Own Med) 1 TAB BID PO 11/15/18 09:00 11/15/18 14:40 DC Patient Own Medication (Patient'S Own Med) 1 puff BID INH 11/15/18 09:00 11/15/18 14:40 DC Patient Own Medication (Patient'S Own Med) 1 tablet QHS PO 11/15/18 21:00 11/26/18 21:40 Patient Own Medication (Patient'S Own Med) 2 tabs any time Pt has dairy ASDIRECTED PRN PO WHEN PATIENT HAS DAIRY 11/14/18 23:00 Patient Own Medication (Patient'S Own Med) Abilify Maintena 400 mg... Q28D IM 11/14/18 23:00 11/15/18 14:40 DC Ranitidine HCl (ZANTAC Syrup) 150 mg BID PO 11/15/18 21:00 11/26/18 21:39 Salmeterol Xinafoate/ Fluticasone (Advair Hfa 230/ 21) 2 puff BID INH 11/15/18 21:00 11/26/18 21:39 Sertraline HCl (Zoloft) 200 mg DAILY PO 11/15/18 09:00 11/21/18 10:37 DC 11/21/18 08:13 Sertraline HCl (Zoloft) 250 mg DAILY PO 11/22/18 09:00 11/26/18 08:30 Topiramate (TopAMAX) 25 mg QHS PO 11/15/18 21:00 11/26/18 21:40 Trazodone HCl (Desyrel) 50 mg QHSP PRN PO INSOMNIA 11/14/18 21:45 11/26/18 21:39 Allergies Coded Allergies: lactose (Verified Allergy, Unknown, 08/16/18) MORALES STANTON DO Nov 27, 2018 9:30 am
[2018-11-27 15:36] VITALS: BP 137/64
[2018-11-27] MEDS: PERCOCET 5MG/325MG TAB PO PRN (17:17)
[2018-11-27] MEDS: cloZAPine 25 MG TAB (S0136) PO SCH (20:28)
[2018-11-27] MEDS: JUNEL FE PO SCH (20:28)
[2018-11-27] MEDS: LITHIUM CARBONATE 450 MG **CR** TAB PO SCH (20:29)
[2018-11-27] MEDS: TOPIRAMATE (TopAMAX) 25 MG TAB PO SCH (20:29)
[2018-11-27] MEDS: LORazepam 1 MG TAB PO PRN (20:32)
[2018-11-27] MEDS: traZODone 50 MG TAB PO PRN (21:07)
[2018-11-28 06:39] VITALS: BP 97/47
--- NOTE | 2018-11-28 08:30 | MHIPNPDOC ---
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 The patient has been continuously agg ressive and was coded several times. Yesterday I had to restrain her and medicate her. Today, she reported that she is sleeping well. MENTAL STATUS EXAMINATION: Unable to assess. Hospital scrubs, cooperative. Made good eye contact. Psychomotor activity is normal. Speech rate, rhythm, and volume are good. States her mood is good and affect is euthymic. She is cooperative and bright. Her insight and judgment are limited. Denied auditory or visual hallucinations. Vague suicidal or homicidal thoughts mostly due to events/other pt's on the unit. Memory for immediate, remote and recent are good. DIAGNOSES: 1. Schizoaffective disorder. 2. Moderate intellectual disability. 3. Borderline personality disorder. ASSESSMENT:Pt not coded during the night but was put back on 1:1 sitter at her request for safety. Pt seen this am and attempted to talk with pt as she sees to be acting up at times, coding right when getting ready to d/c or not having 1:1 so she doesn't have to return to [facility] possibly due to individual there that called her an "attention whore." Pt stated she does want to talk, doesn't want to go to [facility], and with "flip the fuck out" if I continued to talk to her. So I told her to calm down and she would not be going there today. VITAL SIGNS: see below REVIEW OF SYSTEMS: Denied chest pain or palpitations. Denied abdominal pain or dysuria. Denied shortness of breath, cough. Denied dizziness, numbness, tingling. Gait is normal. PLAN: continue plan lithium 600 mg in the morning and 450 mg at night. Abilify Maintena 400 MG IM Q4WKS Clonidine 0.1 MG PO DAILY Clozapine 50 MG PO QHS Sertraline 250 MG PO DAILY, Topiramate 25 MG PO QHS haldol 10mg q4hr prn anxiety/agitation atival 2mg q4hr prn anxiety/agitation throrazine 50mg q4hr prn anxiety/agitation haldol 10mg tid Vital Signs Vital Signs Date Time Temp Pulse Resp B/P (MAP) Pulse Ox O2 Delivery O2 Flow Rate FiO2 11/28/18 06:39 97.8 67 12 97/47 (64) 11/23/18 22:00 98 Laboratory Data 24H Labs Laboratory Tests 2 11/27/18 16:36: Bedside Glucose (Misc Panel) 109H 11/28/18 06:12: Bedside Glucose (Misc Panel) 78 Current Medications Current Medications Medications (Trade) Dose Ordered Sig/Beth Route PRN Reason Start Time Stop Time Status Last Admin Dose Admin Acetaminophen (Tylenol Tab) 500 mg Q4HP PRN PO HEADACHE 11/14/18 22:45 11/22/18 19:58 Acetaminophen (Tylenol Tab) 650 mg Q6HP PRN PO HEADACHE or DISCOMFORT 11/14/18 21:45 Cancel Al Hydrox/Mg Hydrox/Simethicone (Mylanta) 30 ml Q4HP PRN PO HEARTBURN/INDIGESTION 11/14/18 21:45 Albuterol Sulfate (Proventil, Ventolin Hfa) 2 puff Q4HP PRN INH SHORTNESS OF BREATH 11/14/18 22:45 Aripiprazole (Abilify Maintena) 400 mg Q28D@0900 IM 12/05/18 09:00 Benztropine Mesylate (Cogentin) 1 mg BID PO 11/22/18 15:00 11/27/18 20:28 Chlorpromazine HCl (Thorazine) 100 mg STAT STAT IM 11/15/18 10:31 11/15/18 10:35 DC 11/15/18 10:52 Clonidine HCl (Catapres) 0.1 mg DAILY PO 11/15/18 09:00 11/27/18 09:23 Clozapine (Clozaril) 50 mg QHS PO 11/15/18 21:00 11/27/18 20:28 Diphenhydramine HCl (Benadryl) 50 mg Q8HP PRN PO ANXIETY/AGITATION 11/14/18 22:45 11/22/18 21:05 Diphenhydramine HCl (Benadryl) 50 mg STAT STAT IM 11/16/18 17:10 11/16/18 17:13 DC 11/16/18 17:21 Diphenhydramine HCl (Benadryl) 50 mg STAT STAT IM 11/17/18 20:23 11/17/18 20:25 DC 11/17/18 20:34 Diphenhydramine HCl (Benadryl) 50 mg STAT STAT IM 11/23/18 21:23 11/23/18 21:27 DC 11/23/18 21:38 Diphenhydramine HCl (Benadryl) 100 mg STAT STAT IM 11/15/18 10:31 11/15/18 10:34 DC 11/15/18 10:52 Haloperidol (Haldol) 5 mg STAT STAT IM 11/15/18 16:41 11/15/18 16:43 DC 11/15/18 16:51 Haloperidol (Haldol) 5 mg STAT STAT IM 11/16/18 17:10 11/16/18 17:13 DC 11/16/18 17:20 Haloperidol (Haldol) 5 mg STAT STAT IM 11/17/18 20:23 11/17/18 20:25 DC 11/17/18 20:34 Haloperidol (Haldol) 10 mg Q4HP PRN PO ANXIETY/AGITATION 11/15/18 13:00 11/20/18 12:00 DC 11/17/18 12:46 Haloperidol (Haldol) 10 mg Q4HP PRN PO ANXIETY/AGITATION 11/20/18 12:00 11/22/18 21:05 Haloperidol (Haldol) 10 mg STAT STAT IM 11/23/18 21:23 11/23/18 21:27 DC 11/23/18 21:38 Haloperidol (Haldol) 10 mg TID PO 11/21/18 09:00 11/27/18 20:28 Home Med (Med Rec Complete!) ASDIRECTED XX 11/14/18 21:45 11/14/18 21:45 DC Ketorolac Tromethamine (ToRADol) 10 mg Q6HP PRN PO PAIN 11/18/18 20:00 11/23/18 19:59 DC 11/22/18 20:54 [place] Carbonate (Eskalith-Cr) 450 mg BID PO 11/15/18 09:00 11/18/18 13:37 DC 11/18/18 09:33 [place] Carbonate (Eskalith-Cr) 450 mg QHS PO 11/18/18 21:00 11/27/18 20:29 [place] Carbonate (Lithobid Cr) 600 mg QAM PO 11/19/18 09:00 11/27/18 09:18 Lorazepam (Ativan) 2 mg Q4HP PRN PO ANXIETY/AGITATION 11/14/18 21:45 11/27/18 20:32 Lorazepam (Ativan) 2 mg STAT STAT IM 11/15/18 10:31 11/15/18 10:36 DC 11/15/18 10:51 Lorazepam (Ativan) 2 mg STAT STAT IM 11/15/18 16:41 11/15/18 16:43 DC 11/15/18 16:51 Lorazepam (Ativan) 2 mg STAT STAT IM 11/16/18 17:10 11/16/18 17:13 DC 11/16/18 17:21 Lorazepam (Ativan) 2 mg STAT STAT IM 11/17/18 20:23 11/17/18 20:25 DC 11/17/18 20:34 Lorazepam (Ativan) 2 mg STAT STAT IM 11/23/18 21:23 11/23/18 21:27 DC 11/23/18 21:38 Magnesium Hydroxide (Milk Of Magnesia) 30 ml DAILYPRN PRN PO CONSTIPATION 11/14/18 21:45 Metformin HCl (Glucophage) 1,000 mg BID@0800,1800 PO 11/15/18 08:00 11/21/18 09:38 DC 11/21/18 07:48 Metformin HCl (Glucophage) 1,000 mg BID@0800,1800 PO 11/21/18 18:00 11/27/18 17:17 Miscellaneous (Unresolved Clarification Entry) SEE LABEL COMMENTS DAILY XX 11/22/18 09:00 11/26/18 15:04 DC Miscellaneous (Unresolved Clarification Entry) SEE LABEL COMMENTS DAILY XX 11/26/18 09:00 11/27/18 07:54 DC Miscellaneous (Unresolved Clarification Entry) SEE LABEL COMMENTS DAILY XX 11/27/18 09:00 11/27/18 09:54 DC Miscellaneous (Unresolved Patient Own Med Order) SEE LABEL COMMENTS DAILY XX 11/15/18 09:00 11/15/18 14:41 DC Miscellaneous (Unresolved Patient Own Med Order) SEE LABEL COMMENTS DAILY XX 11/15/18 09:00 11/15/18 14:41 DC Miscellaneous (Unresolved Patient Own Med Order) SEE LABEL COMMENTS DAILY XX 11/15/18 09:00 11/15/18 14:41 DC Miscellaneous (Unresolved Patient Own Med Order) SEE LABEL COMMENTS DAILY XX 11/15/18 09:00 11/15/18 16:09 DC Miscellaneous (Unresolved Patient Own Med Order) SEE LABEL COMMENTS DAILY XX 11/15/18 09:00 11/15/18 16:09 DC Neomycin/ Polymyxin/ Bacitracin (Neosporin) to right wrist lacerations BID TOP 11/15/18 21:00 11/25/18 21:29 Ondansetron HCl (Zofran) 4 mg Q6HP PRN PO NAUSEA 11/14/18 22:45 Oxycodone/ Acetaminophen (Percocet 5mg/ 325mg Tablet) 1 tab Q4HP PRN PO MILD/MODERATE PAIN (PS 1-7) 11/23/18 20:45 11/27/18 17:17 Patient Own Medication (Patient'S Own Med) 1 TAB BID PO 11/15/18 09:00 11/15/18 14:40 DC Patient Own Medication (Patient'S Own Med) 1 puff BID INH 11/15/18 09:00 11/15/18 14:40 DC Patient Own Medication (Patient'S Own Med) 1 tablet QHS PO 11/15/18 21:00 11/27/18 20:28 Patient Own Medication (Patient'S Own Med) 2 tabs any time Pt has dairy ASDIRECTED PRN PO WHEN PATIENT HAS DAIRY 11/14/18 23:00 Patient Own Medication (Patient'S Own Med) Abilify Maintena 400 mg... Q28D IM 11/14/18 23:00 11/15/18 14:40 DC Ranitidine HCl (ZANTAC Syrup) 150 mg BID PO 11/15/18 21:00 11/27/18 20:27 Salmeterol Xinafoate/ Fluticasone (Advair Hfa 230/ 21) 2 puff BID INH 11/15/18 21:00 11/27/18 20:29 Sertraline HCl (Zoloft) 200 mg DAILY PO 11/15/18 09:00 11/21/18 10:37 DC 11/21/18 08:13 Sertraline HCl (Zoloft) 250 mg DAILY PO 11/22/18 09:00 11/27/18 09:31 Topiramate (TopAMAX) 25 mg QHS PO 11/15/18 21:00 11/27/18 20:29 Trazodone HCl (Desyrel) 50 mg QHSP PRN PO INSOMNIA 11/14/18 21:45 11/27/18 21:07 Allergies Coded Allergies: lactose (Verified Allergy, Unknown, 08/16/18) MORALES STANTON DO Nov 28, 2018 8:30 am
[2018-11-28] MEDS: raNITIdine SYRUP 150 MG/10 ML UDC PO SCH ×2 (09:00→22:42)
[2018-11-28] MEDS: ADVAIR HFA 230/21MCG INHALER INH SCH ×2 (09:00→22:42)
[2018-11-28] MEDS: NEOSPORIN TOP OINT 15GM TOP SCH ×2 (09:00→22:44)
[2018-11-28] MEDS: BENZTROPINE 1 MG TAB PO SCH ×2 (09:26→22:43)
[2018-11-28] MEDS: metFORMIN (GLUCOPHAGE) 1000 MG TABLET PO SCH ×2 (09:26→17:29)
[2018-11-28] MEDS: LITHIUM CARBONATE 300 MG **CR** TAB PO SCH (09:26)
[2018-11-28] MEDS: HALOPERIDOL 10 MG TAB PO SCH ×3 (09:26→21:30)
[2018-11-28] MEDS: SERTRALINE 100 MG TAB PO SCH (09:26)
[2018-11-28] MEDS: cloNIDine 0.1 MG TAB PO SCH (09:36)
[2018-11-28 16:03] VITALS: BP 125/70
[2018-11-28] MEDS: HALOPERIDOL 5 MG/ML VIAL (J1630) IM STA ×2 (21:12→21:39)
[2018-11-28] MEDS: LORazepam 2 MG/ML VIAL (J2060) IM STA ×2 (21:13→21:38)
[2018-11-28 21:45] VITALS: BP 117/56
[2018-11-28 22:00] VITALS: BP 119/59
[2018-11-28] MEDS: LORazepam 1 MG TAB PO PRN (22:42)
[2018-11-28] MEDS: cloZAPine 25 MG TAB (S0136) PO SCH (22:43)
[2018-11-28] MEDS: TOPIRAMATE (TopAMAX) 25 MG TAB PO SCH (22:43)
[2018-11-28] MEDS: LITHIUM CARBONATE 450 MG **CR** TAB PO SCH (22:43)
[2018-11-28] MEDS: PERCOCET 5MG/325MG TAB PO PRN (22:43)
[2018-11-28] MEDS: JUNEL FE PO SCH (22:46)
[2018-11-29 06:00] VITALS: BP 112/71
--- NOTE | 2018-11-29 09:32 | MHIPN ---
DATE: 11/28/2018 I was called by staff as the patient has been quite agitated, has in fact gotten in between the two doors of the exit, when a new patient was being brought in, she was upset, and staff tried to direct her, unsuccessfully, and then I was informed that she had been placed in four-point restraints. I came in a few minutes later, the patient was in restraints, but calmer, clearly irritated, but not agitated. Prior to coming in I suggested patient be given Haldol and Ativan intramuscular, this had not been given by the time I got here, it was being arranged, but since the patient was noted to be calmer than earlier, I suggested that we will look at removing some of the restraints, and then offer her Haldol 5 mg by mouth, which she has agreed to take, and this is being arranged, and we will look at removing the restraints as to when this is feasible, per protocol, and we will look at avoiding the medication intramuscular. I was detention sergeant over the weekend, a couple of days ago, the patient had a good weekend overall, and would look at essentially helping her regain that state. Further recommendations will be made depending on the clinical picture.
[2018-11-29] MEDS: metFORMIN (GLUCOPHAGE) 1000 MG TABLET PO SCH ×2 (09:36→17:09)
[2018-11-29] MEDS: raNITIdine SYRUP 150 MG/10 ML UDC PO SCH ×2 (09:37→20:19)
[2018-11-29] MEDS: HALOPERIDOL 10 MG TAB PO SCH ×3 (09:37→20:21)
[2018-11-29] MEDS: BENZTROPINE 1 MG TAB PO SCH ×2 (09:37→20:21)
[2018-11-29] MEDS: cloNIDine 0.1 MG TAB PO SCH (09:37)
[2018-11-29] MEDS: LITHIUM CARBONATE 300 MG **CR** TAB PO SCH (09:37)
[2018-11-29] MEDS: SERTRALINE 100 MG TAB PO SCH (09:37)
[2018-11-29] MEDS: ADVAIR HFA 230/21MCG INHALER INH SCH ×2 (09:38→20:22)
[2018-11-29] MEDS: NEOSPORIN TOP OINT 15GM TOP SCH ×2 (09:38→20:20)
[2018-11-29 15:28] VITALS: BP 116/65
[2018-11-29] MEDS: PERCOCET 5MG/325MG TAB PO PRN ×2 (16:03→20:20)
[2018-11-29] MEDS: TOPIRAMATE (TopAMAX) 25 MG TAB PO SCH (20:20)
[2018-11-29] MEDS: LITHIUM CARBONATE 450 MG **CR** TAB PO SCH (20:21)
[2018-11-29] MEDS: cloZAPine 25 MG TAB (S0136) PO SCH (20:21)
[2018-11-29] MEDS: JUNEL FE PO SCH (20:21)
[2018-11-29] MEDS: traZODone 50 MG TAB PO PRN (21:24)
[2018-11-30 06:25] VITALS: BP 102/57
[2018-11-30] MEDS ORDERED: BENZ-52 PO (09:00)
[2018-11-30] MEDS ORDERED: CLOZ50TA PO (09:00)
[2018-11-30] MEDS ORDERED: HALO10TA20 PO (09:00)
[2018-11-30] MEDS ORDERED: SERT-138 PO (09:00)
[2018-11-30] MEDS ORDERED: TRAZ-252 PO (09:00)
[2018-11-30] MEDS ORDERED: TOPI25TA10 PO (09:00)
[2018-11-30] MEDS: NEOSPORIN TOP OINT 15GM TOP SCH (09:00)
[2018-11-30] MEDS ORDERED: LITH45TASA PO (09:00)
--- NOTE | 2018-11-30 09:01 | MHDSPDOC ---
[facility] Discharge Summary Discharge Summary DATE OF ADMISSION: Nov 14, 2018 at 9:45 pm DATE OF DISCHARGE: Nov 30, 2018 DISCHARGE DIAGNOSES: 1. Schizoaffective disorder. 2. Moderate intellectual disability. 3. Borderline personality disorder. REASON FOR ADMISSION: She is a 23-year-old female with a history of schizoaffective disorder, borderline personality disorder with moderate intellectual disability, who was admitted because of suicidal thoughts from [facility] ([facility]). The patient has been continuously aggressive and was coded several times. Yesterday I had to restrain her and medicate her. Today, she reported that she is sleeping well. CONSULTANTS INVOLVED: none TEST RESULTS: ANC calc 3395.7, normal. TREATMENT AND PROGRESS ON THE UNIT : Pt was admitted to [facility], seen for psychiatric assessment and restarted on her outpatient psychiatric medications clozaril, haldol, trazodone, zoloft, lithium, topomax, and clonidine that she tolerated well. Pt did require four to five chemical and physical restraints during her stay but was cooperative on the unit and her behavioral symptoms improved after codes with staff support and redirection. Pt was placed on a 1:1 sitter during her stay for SI with d/c of 1:1 sitter on the day of d/c when pt able to say she was no longer having SI and felt safe to be without a sitter. Pt found her medications beneficial and tolerated them well. She attended groups daily and during her stay. Her symptoms improved with treatment. On day of discharge she denied depression, anxiety, insomnia, SI/HI, hallucinations, delusions. She was discharged back to [facility] after [facility] meeting with follow-up at [facility]. She felt safe for discharge. DISCHARGE ASSESSMENT: Patient seen states her mood is good and she's looking forward to returning to [facility] today. She denies SI/HI, AH and her behavioral symptoms are improved. She is less attention seeking. She is tolerating her medications well and feels they're beneficial. She denies depression, anxiety, insomnia, SI/HI, hallucinations, delusions. She feels safe to be discharged back to [facility] today. MENTAL STATUS EXAMINATION ON DISCHARGE: Hospital scrubs, cooperative. Made good eye contact. Psychomotor activity is normal. Speech rate, rhythm, and volume are good. States her mood is good and affect is euthymic. She is cooperative and bright. Her insight and judgment are limited. Denied auditory or visual hallucinations. Vague suicidal or homicidal thoughts mostly due to events/other pt's on the unit. Memory for immediate, remote and recent are good. MEDICATIONS ON DISCHARGE: lithium 600 mg in the morning and 450 mg at night. Abilify Maintena 400 MG IM Q4WKS Clonidine 0.1 MG PO DAILY Clozapine 50 MG PO QHS Sertraline 250 MG PO DAILY, Topiramate 25 MG PO QHS haldol 10mg tid PLAN/FOLLOWUP ARRANGEMENTS: D/c back to [facility] with follow-up at [facility]. The amount of time spent in the coordination of care for this patient was approximately 30 minutes. Vital Signs/I&Os Vital Signs Date Time Temp Pulse Resp B/P (MAP) Pulse Ox O2 Delivery O2 Flow Rate FiO2 11/30/18 06:25 98.1 60 16 102/57 (72) 11/28/18 22:00 98 Laboratory Data Labs 24H Laboratory Tests 2 11/29/18 16:05: Bedside Glucose (Misc Panel) 140H 11/30/18 06:04: Bedside Glucose (Misc Panel) 78 Medications Scheduled Aripiprazole (Abilify Maintena) 400 Mg Suser.syr, 400 MG IM Q4WKS, (Reported) Clonidine HCl (Catapres) 0.1 Mg Tablet, 0.1 MG PO DAILY, (Reported) Clozapine (Clozapine) 50 Mg Tablet, 50 MG PO QHS, (Reported) Fluticasone Propion/Salmeterol (Airduo Respiclick 232-14 Mcg) 1 Each Aer.pow.ba, 1 PUFF INH BID, (Reported) Lactase (Lactaid) 3,000 Unit Tab, 6,000 UNIT PO ASDIRECTED, (Reported) TAKES 2 TABS ANY TIME PATIENT HAS DAIRY [place] Carbonate ([place] Carbonate ER) 450 Mg Tablet.er, 450 MG PO BID, (Reported) Metformin HCl (Metformin HCl) 500 Mg Tablet, 1,000 MG PO BID, (Reported) Norethindrone-E.estradiol-Iron (Junel Fe 1.5 mg-30 Mcg Tablet) 1 Tab Tab, 1 TAB PO QHS, (Reported) Ranitidine HCl (Ranitidine HCl) 150 Mg Tablet, 1 TAB PO BID, (Reported) Sertraline HCl (Sertraline HCl) 100 Mg Tablet, 200 MG PO DAILY, (Reported) Topiramate (Topiramate) 25 Mg Tablet, 25 MG PO QHS, (Reported) Scheduled PRN Acetaminophen (Tylenol Extra Strength) 500 Mg Tablet, 500 MG PO Q4H PRN for HEADACHE, (Reported) Albuterol Sulfate (Ventolin Hfa) 18 Gm Hfa.aer.ad, 2 PUFF INH Q4H PRN for SHORTNESS OF BREATH, (Reported) Diphenhydramine HCl (Banophen) 50 Mg Capsule, 50 MG PO Q8H PRN for ANXIETY/AGITATION, (Reported) Ondansetron HCl (Zofran) 4 Mg Tablet, 4 MG PO Q6H PRN for NAUSEA, (Reported) Trazodone HCl (Trazodone HCl) 50 Mg Tablet, 50 MG PO QHS PRN for INSOMNIA, (Reported) Allergies Coded Allergies: lactose (Verified Allergy, Unknown, 08/16/18) MORALES STANTON DO Nov 30, 2018 9:01 am
[2018-11-30] MEDS: raNITIdine SYRUP 150 MG/10 ML UDC PO SCH (09:31)
[2018-11-30 09:32] VITALS: BP 102/57
[2018-11-30] MEDS: cloNIDine 0.1 MG TAB PO SCH (09:32)
[2018-11-30] MEDS: ADVAIR HFA 230/21MCG INHALER INH SCH (09:32)
[2018-11-30] MEDS: metFORMIN (GLUCOPHAGE) 1000 MG TABLET PO SCH (09:32)
[2018-11-30] MEDS: HALOPERIDOL 10 MG TAB PO SCH (09:32)
[2018-11-30] MEDS: SERTRALINE 100 MG TAB PO SCH (09:32)
[2018-11-30] MEDS: BENZTROPINE 1 MG TAB PO SCH (09:32)
[2018-11-30] MEDS: LITHIUM CARBONATE 300 MG **CR** TAB PO SCH (09:33)
[2018-12-05] MEDS ORDERED: ARIPiprazole MONOHYDRATE 400 MG INJ (ABILIFY)(J0401) IM SCH (09:00)
== END 2018-11-30 12:00 | disposition home or self-care (01) | DRG 750 ==
LOC: M ED 18:22 → M ED INP 21:45 → M PSY 11-15 01:15
PROVIDERS: ADMIT Psychiatry & Neurology Psychiatry; ATTEND Psychiatry & Neurology Psychiatry
DX: F25.9 Schizoaffective disorder, unspecified (principal); F60.3 Borderline personality disorder; F71 Moderate intellectual disabilities; E66.9 Obesity, unspecified; E11.9 Type 2 diabetes mellitus without complications; R45.851 Suicidal ideations; J45.909 Unspecified asthma, uncomplicated; Z91.011 Allergy to milk products; Z79.899 Other long term (current) drug therapy; Z78.1 Physical restraint status; Z79.84 Long term (current) use of oral hypoglycemic drugs; Z68.42 Body mass index [BMI] 45.0-49.9, adult

== ENCOUNTER 2018-12-02 17:59 | Emergency (ER) | payer OTHER ==
[~2018-12-02] VITALS: Ht 152.4 cm; Wt 108.2 kg
[~2018-12-02 17:59] MED LIST changes: +ACET-897 PO; +CATA0.1T PO; +CLOZ50TA PO
[2018-12-02 18:44] LABS: HEMATOCRIT 37.8 % (36.0-47.0); HEMOGLOBIN 12.3 g/dl (12.0-15.5); MEAN CORPUSCULAR HEMOGLOBIN 30.8 pg (27.0-33.0); MEAN CORPUSCULAR HGB CONC 32.5 g/dl (32.0-36.5); MEAN CORPUSCULAR VOLUME 94.5 fl (80.0-96.0); PLATELET COUNT, AUTOMATED 266 10^3/uL (150-450); WHITE BLOOD COUNT 7.8 10^3/uL (4.0-10.0)
[2018-12-02 19:17] LABS: HCG, SERUM QUALITATIVE NEGATIVE (NEGATIVE)
[2018-12-02 19:25] LABS: ALBUMIN 3.6 GM/DL (3.2-5.2); ALT/SGPT 17 U/L (12-78); BILIRUBIN,DIRECT < 0.1 MG/DL (0.0-0.2); BILIRUBIN,TOTAL 0.1 MG/DL (0.2-1.0); BLOOD UREA NITROGEN 11 MG/DL (7-18); CALCIUM LEVEL 8.8 MG/DL (8.5-10.1); CARBON DIOXIDE LEVEL 23 MEQ/L (21-32); CHLORIDE LEVEL 109 MEQ/L (98-107); CREATININE FOR GFR 0.85 MG/DL (0.55-1.30); ETHYL ALCOHOL (ETHANOL) < 0.003 % (0.000-0.010); GLOMERULAR FILTRATION RATE > 60.0 (>60); GLUCOSE, FASTING 99 MG/DL (70-100); SALICYLATE LEVEL < 1.7 MG/DL (5.0-30.0); SODIUM LEVEL 141 MEQ/L (136-145); TOTAL PROTEIN 6.8 GM/DL (6.4-8.2)
[2018-12-02 20:01] LABS: AMPHETAMINES LEVEL URINE NEGATIVE (NEGATIVE); BARBITURATES URINE NEGATIVE (NEGATIVE); BENZODIAZEPINES URINE NEGATIVE (NEGATIVE); CANNABINOIDS URINE NEGATIVE (NEGATIVE); COCAINE METABOLITE URINE NEGATIVE (NEGATIVE); METHADONE URINE NEGATIVE (NEGATIVE); OPIATES URINE NEGATIVE (NEGATIVE); PHENCYCLIDINE URINE NEGATIVE (NEGATIVE)
[2018-12-02] MEDS ORDERED: SERT-138 PO (20:32)
[2018-12-02] MEDS ORDERED: HALO10TA20 PO (20:32)
[2018-12-02] MEDS ORDERED: TOPI25CA3 PO (20:32)
[2018-12-02] MEDS ORDERED: CLOZ50TA PO (20:32)
[2018-12-02] MEDS ORDERED: LITH45TASA PO (20:32)
[2018-12-02] MEDS ORDERED: TRAZ-186 PO (20:32)
[2018-12-02] MEDS ORDERED: BENZ-52 PO (20:32)
[2018-12-02] MEDS ORDERED: raNITIdine SYRUP 150 MG/10 ML UDC PO ONE (21:00)
[2018-12-02] MEDS ORDERED: BENZTROPINE 1 MG TAB PO ONE (23:00)
[2018-12-02] MEDS ORDERED: HALOPERIDOL 10 MG TAB PO ONE (23:00)
[2018-12-02] MEDS ORDERED: LITHIUM CARBONATE 150 MG CAP PO ONE (23:00)
[2018-12-02] MEDS ORDERED: traZODone 50 MG TAB PO ONE (23:00)
[2018-12-02] MEDS ORDERED: metFORMIN (GLUCOPHAGE) 500 MG TAB PO ONE (23:00)
[2018-12-02] MEDS ORDERED: TOPIRAMATE (TopAMAX) 25 MG TAB PO ONE (23:00)
[2018-12-03] MEDS ORDERED: BENZTROPINE 1 MG TAB PO ONE (09:00)
[2018-12-03] MEDS ORDERED: ADVAIR HFA 230/21MCG INHALER INH SCH ×2 (09:00→09:22)
[2018-12-03] MEDS ORDERED: LITHIUM CARBONATE 150 MG CAP PO ONE (09:00)
[2018-12-03] MEDS ORDERED: cloNIDine 0.1 MG TAB PO ONE (09:00)
[2018-12-03] MEDS ORDERED: LITHIUM CARBONATE 450 MG **CR** TAB PO ONE (09:00)
[2018-12-03] MEDS ORDERED: SERTRALINE 100 MG TAB PO ONE (09:00)
[2018-12-03] MEDS ORDERED: metFORMIN (GLUCOPHAGE) 500 MG TAB PO ONE (09:00)
[2018-12-03 09:54] VITALS: BP 128/83
[2018-12-03] MEDS ORDERED: metFORMIN (GLUCOPHAGE) 1000 MG TABLET PO ONE (10:00)
[2018-12-03 13:59] VITALS: BP 135/77
[2018-12-03] MEDS ORDERED: cloZAPine 25 MG TAB (S0136) PO ONE (21:00)
--- NOTE | 2018-12-04 08:19 | ECGEPIP ---
[facility] - ED Test Date: 2018-12-02 Pat Name: TORRES KIET Department: Room: - Gender: Female Geophysical Computer: shirley : 1995 Requested By: Kit Bland Order Number: [id number] Reading MD: Salina Haider Measurements Intervals [place] Rate: 66 P: 6 WV: 133 QRS: -1 QRSD: 100 T: 3 QT: 410 QTc: 433 Interpretive Statements SINUS RHYTHM WITH SINUS ARRHYTHMIA INFERIOR MYOCARDIAL INFARCTION, PROBABLY OLD DECREASED RATE 07/31/18 Electronically Signed on 12-04-2018 8:19:43 EDT by Salina Haider
== END 2018-12-03 14:02 | disposition short-term general hospital (02) ==
LOC: M ED 17:59
DX: R45.851 Suicidal ideations (principal); F33.9 Major depressive disorder, recurrent, unspecified; I10 Essential (primary) hypertension; J45.909 Unspecified asthma, uncomplicated; F41.9 Anxiety disorder, unspecified; F20.9 Schizophrenia, unspecified; E03.9 Hypothyroidism, unspecified; E73.9 Lactose intolerance, unspecified; Z91.5 Personal history of self-harm; Z79.899 Other long term (current) drug therapy; Z79.84 Long term (current) use of oral hypoglycemic drugs
CPT/HCPCS: 36415; 80048; 80076; 80178; 80307; 84443; 84703; 85027; 93005; 99285; G0480

== ENCOUNTER 2018-12-13 20:34 | Inpatient (IN) | payer OTHER ==
[~2018-12-13] VITALS: Ht 152.4 cm; Wt 105.0 kg
[2018-12-13 21:21] LABS: BASO # 0.1 10^3/uL (0.0-0.2); BASO % 0.6 % (0.0-1.0); EOS % 0.1 % (0.0-3.0); HEMATOCRIT 35.6 % (36.0-47.0); HEMOGLOBIN 11.8 g/dl (12.0-15.5); LYMPH # 3.1 10^3/uL (1.5-5.0); LYMPH % 32.8 % (24.0-44.0); MEAN CORPUSCULAR HEMOGLOBIN 30.6 pg (27.0-33.0); MEAN CORPUSCULAR HGB CONC 33.1 g/dl (32.0-36.5); MEAN CORPUSCULAR VOLUME 92.5 fl (80.0-96.0); MONO # 0.8 10^3/uL (0.0-0.8); MONO % 8.5 % (0.0-5.0); NEUTROPHILS # 5.4 10^3/uL (1.5-8.5); NEUTROPHILS % 57.4 % (36.0-66.0); PLATELET COUNT, AUTOMATED 267 10^3/uL (150-450); RED BLOOD COUNT 3.85 10^6/uL (4.00-5.40); WHITE BLOOD COUNT 9.4 10^3/uL (4.0-10.0)
[2018-12-13 21:42] LABS: HCG, SERUM QUALITATIVE NEGATIVE (NEGATIVE)
[2018-12-13 21:49] LABS: ACETAMINOPHEN LEVEL < 2.0 UG/ML (10.0-30.0); ALBUMIN 3.5 GM/DL (3.2-5.2); ALT/SGPT 24 U/L (12-78); BILIRUBIN,DIRECT < 0.1 MG/DL (0.0-0.2); BILIRUBIN,TOTAL 0.2 MG/DL (0.2-1.0); BLOOD UREA NITROGEN 10 MG/DL (7-18); CALCIUM LEVEL 9.4 MG/DL (8.5-10.1); CARBON DIOXIDE LEVEL 25 MEQ/L (21-32); CHLORIDE LEVEL 109 MEQ/L (98-107); CREATININE FOR GFR 0.85 MG/DL (0.55-1.30); ETHYL ALCOHOL (ETHANOL) < 0.003 % (0.000-0.010); GLOMERULAR FILTRATION RATE > 60.0 (>60); GLUCOSE, FASTING 80 MG/DL (70-100); SALICYLATE LEVEL < 1.7 MG/DL (5.0-30.0); SODIUM LEVEL 141 MEQ/L (136-145); TOTAL PROTEIN 6.5 GM/DL (6.4-8.2)
[2018-12-13 21:57] LABS: AMPHETAMINES LEVEL URINE NEGATIVE (NEGATIVE); BARBITURATES URINE NEGATIVE (NEGATIVE); BENZODIAZEPINES URINE NEGATIVE (NEGATIVE); CANNABINOIDS URINE NEGATIVE (NEGATIVE); COCAINE METABOLITE URINE NEGATIVE (NEGATIVE); METHADONE URINE NEGATIVE (NEGATIVE); OPIATES URINE NEGATIVE (NEGATIVE); PHENCYCLIDINE URINE NEGATIVE (NEGATIVE)
[2018-12-13] MEDS ORDERED: ACETAMINOPHEN TAB 650MG DOSE (2X325MG) PO ONE (22:45)
[2018-12-14] MEDS ORDERED: ACETAMINOPHEN TAB 650MG DOSE (2X325MG) PO PRN
[2018-12-14] MEDS ORDERED: MAALOX 30 ML SUSP *UDC PO PRN
[2018-12-14] MEDS ORDERED: MOM 30ML SUSPENSION UDC PO PRN
[2018-12-14] MEDS ORDERED: diphenhydrAMINE 50 MG CAP PO PRN (00:15)
[2018-12-14] MEDS ORDERED: ALBUTEROL 90 MCG/ACT 8GM HFA INHALER INH PRN (00:15)
[2018-12-14] MEDS ORDERED: SERT-138 PO (00:47)
[2018-12-14] MEDS ORDERED: HYDR50TA70 PO (00:49)
[2018-12-14] MEDS: HALOPERIDOL 10 MG TAB PO SCH ×4 (01:39→20:21)
[2018-12-14] MEDS: FAMOTIDINE 20 MG TAB PO SCH ×3 (01:39→20:21)
[2018-12-14] MEDS: TOPIRAMATE (TopAMAX) 25 MG TAB PO SCH ×2 (01:40→20:22)
[2018-12-14] MEDS: LITHIUM CARBONATE 450 MG **CR** TAB PO SCH ×3 (01:41→20:22)
[2018-12-14] MEDS: cloZAPine 25 MG TAB (S0136) PO SCH ×2 (01:41→20:22)
[2018-12-14] MEDS: BENZTROPINE 1 MG TAB PO SCH ×3 (01:41→20:22)
[2018-12-14 01:54] VITALS: BP 138/89
[2018-12-14] MEDS: metFORMIN (GLUCOPHAGE) 1000 MG TABLET PO SCH ×2 (08:36→17:34)
[2018-12-14] MEDS: SERTRALINE 100 MG TAB PO SCH (08:37)
[2018-12-14] MEDS: cloNIDine 0.1 MG TAB PO SCH (08:39)
[2018-12-14] MEDS ORDERED: INFLUENZA QUADRIVALENT PF VACCINE 0.5ML SYRINGE (90686) IM ONE (09:00)
[2018-12-14] MEDS ORDERED: SERTRALINE 100 MG TAB PO SCH (09:00)
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
[2018-12-14] MEDS: LORazepam 2 MG TAB PO PRN (11:22)
[2018-12-14 18:24] VITALS: BP 118/84
[2018-12-14] MEDS: NORETHINDRONE E ESTRADIOL IRON PO SCH (21:36)
[2018-12-14] MEDS: AIRDUO RESPICLICK INH SCH (21:36)
[2018-12-14] MEDS: traZODone 50 MG TAB PO PRN (21:37)
[2018-12-15 06:16] VITALS: BP 131/87
[2018-12-15] MEDS: LITHIUM CARBONATE 450 MG **CR** TAB PO SCH ×2 (08:58→21:48)
[2018-12-15] MEDS: SERTRALINE 100 MG TAB PO SCH (08:58)
[2018-12-15] MEDS: HALOPERIDOL 10 MG TAB PO SCH ×3 (08:59→21:48)
[2018-12-15] MEDS: cloNIDine 0.1 MG TAB PO SCH (08:59)
[2018-12-15] MEDS: FAMOTIDINE 20 MG TAB PO SCH ×2 (09:00→21:47)
[2018-12-15] MEDS: metFORMIN (GLUCOPHAGE) 1000 MG TABLET PO SCH ×2 (09:00→18:07)
[2018-12-15] MEDS: BENZTROPINE 1 MG TAB PO SCH ×2 (09:00→21:48)
[2018-12-15] MEDS: AIRDUO RESPICLICK INH SCH ×2 (09:12→21:50)
--- NOTE | 2018-12-15 11:17 | MHIPNPDOC ---
[facility] Progress Note Progress Note DATE OF SERVICE: 12/15/18 HISTORY: Patient is a 23 -year-old , female, with a history of schizoaffective d/o, borderline personality d/o, several [facility] admissions frequently for AH and SI who lives at [facility] and was brought by PD from [facility] due to pt endorsing AH that started day of admission to cut and hang herself. Pt refused to speak with me for an extended period of time and left when she felt she was done seeing me, requesting 1:1 sitter to make her feel safe so history gathered from previous hospital records. She is a poor historian as well. Pt seen in my office and states "I want to cut myself... the voices make me want to cut myself... they're coming from everywhere." when asked. Asked if she would like a prn medication to help and stated no. Pt stated the only thing that would make her feel safe is have a 1:1 sitter. She left the room promptly when she did not want to talk further. She is manipulative and attention seeking. Will restart outpatient meds and ANC calc 5452, normal. VITAL SIGNS: See below. NEW TEST RESULTS: ANC calc 5452, normal. CURRENT MEDICATIONS: See below. MENTAL STATUS EXAMINATION: General Appearance: unkempt, disheveled, appears stated age, hospital scubs/clothing Build: overweight Demeanor: average, other (irritable, attention seeking) Eye Contact: avoidant Activity: agitated, anxious Behavior: cooperative, agitated, restless Speech: clear, normal volume, non-spontaneous Mood: depressed, anxious, angry, irritable Mood "I want to cut myself." Affect: labile, congruent, anxious Thought Process: concrete, depressed Thought Content (Delusions): other (Wants to cut self secondary AH coming from everywhere, denies HI) Thought Content (Other): preoccupied, obsessional Thought Content (Aggressive): none reported Perception (Hallucinations): auditory ("to cut myself") Perception (Other): none reported Cognition (Impairment of): attention/concentration, ability to abstract Cognition(Intelligence Est.): borderline Oriented: Awake, Alert, Oriented times three Insight: poor Judgment: Poor Psychosis: Abstract Thinking, Psychotic Perceptions DIAGNOSES: Schizoaffective disorder, bipolar type borderline personality d/o moderate intellectual disability ASSESSMENT:Pt seen with 1/1 sitter in her room due to room restriction b/c she is currently on a sitter and voicing thoughts to cut herself still. Continues to endorse AH telling her to cut herself. Denies HI, delusions. States she safer with sitter present. MANAGEMENT PLAN: continue plan, 1:1 sitter as still wants to cut self, behavioral contract lithium 600 mg in the morning and 450 mg at night. Abilify Maintena 400 MG IM Q4WKS Clonidine 0.1 MG PO DAILY Clozapine 50 MG PO QHS Sertraline 250 MG PO DAILY, Topiramate 25 MG PO QHS haldol 10mg tid TIME SPENT: 30 minutes. Vital Signs Vital Signs Date Time Temp Pulse Resp B/P (MAP) Pulse Ox O2 Delivery O2 Flow Rate FiO2 12/15/18 08:59 131/87 12/15/18 06:16 97.2 69 16 12/14/18 01:54 97 12/13/18 20:53 Room Air Current Medications Current Medications Medications (Trade) Dose Ordered Sig/Beth Route PRN Reason Start Time Stop Time Status Last Admin Dose Admin Acetaminophen (Tylenol Tab) 650 mg Q6HP PRN PO HEADACHE or DISCOMFORT 12/14/18 00:00 Al Hydrox/Mg Hydrox/Simethicone (Mylanta) 30 ml Q4HP PRN PO HEARTBURN/INDIGESTION 12/14/18 00:00 Albuterol Sulfate (Proventil, Ventolin Hfa) 2 puff Q4HP PRN INH SHORTNESS OF BREATH 12/14/18 00:15 Benztropine Mesylate (Cogentin) 1 mg BID PO 12/13/18 21:00 12/15/18 09:00 Clonidine HCl (Catapres) 0.1 mg DAILY PO 12/14/18 09:00 12/15/18 08:59 Clozapine (Clozaril) 50 mg QHS PO 12/13/18 21:00 12/14/18 20:22 Diphenhydramine HCl (Benadryl) 50 mg Q8HP PRN PO ANXIETY/AGITATION 12/14/18 00:15 Famotidine (Pepcid) 20 mg BID PO 12/13/18 21:00 12/15/18 09:00 Haloperidol (Haldol) 10 mg TID PO 12/13/18 21:00 12/15/18 08:59 Home Med (Med Rec Complete!) ASDIRECTED XX 12/14/18 01:00 12/14/18 00:56 DC [place] Carbonate (Eskalith-Cr) 450 mg BID PO 12/13/18 21:00 12/15/18 08:58 Lorazepam (Ativan) 2 mg Q4HP PRN PO ANXIETY/AGITATION 12/14/18 10:30 12/14/18 11:22 Magnesium Hydroxide (Milk Of Magnesia) 30 ml DAILYPRN PRN PO CONSTIPATION 12/14/18 00:00 Metformin HCl (Glucophage) 1,000 mg BID@,18 PO 12/14/18 08:00 12/15/18 09:00 Miscellaneous (Unresolved Patient Own Med Order) SEE LABEL COMMENTS DAILY XX 12/14/18 09:00 12/14/18 18:55 DC Miscellaneous (Unresolved Patient Own Med Order) SEE LABEL COMMENTS DAILY XX 12/14/18 09:00 12/14/18 18:56 DC Patient Own Medication (Patient'S Own Med) 1 PUFF BID INH 12/14/18 21:00 12/15/18 09:12 Patient Own Medication (Patient'S Own Med) 1 TAB PO AT BEDTIME QHS PO 12/14/18 21:00 12/14/18 21:36 Sertraline HCl (Zoloft) 200 mg DAILY PO 12/14/18 09:00 12/15/18 08:58 Sertraline HCl (Zoloft) 250 mg DAILY PO 12/14/18 09:00 12/14/18 01:04 DC Topiramate (TopAMAX) 25 mg QHS PO 12/13/18 21:00 12/14/18 20:22 Trazodone HCl (Desyrel) 50 mg QHSP PRN PO INSOMNIA 12/14/18 00:00 12/14/18 21:37 Allergies Coded Allergies: lactose (Verified Allergy, Unknown, 08/16/18) MORALES STANTON DO Dec 15, 2018 11:17 am
[2018-12-15] MEDS: LORazepam 2 MG TAB PO PRN (12:30)
[2018-12-15 17:33] VITALS: BP 133/85
[2018-12-15] MEDS: cloZAPine 25 MG TAB (S0136) PO SCH (21:48)
[2018-12-15] MEDS: NORETHINDRONE E ESTRADIOL IRON PO SCH (21:48)
[2018-12-15] MEDS: traZODone 50 MG TAB PO PRN (21:48)
[2018-12-15] MEDS: TOPIRAMATE (TopAMAX) 25 MG TAB PO SCH (21:48)
[2018-12-16 06:46] VITALS: BP 102/67
--- NOTE | 2018-12-16 07:05 | HPE ---
DATE OF ADMISSION: 12/13/2018 DATE OF SERVICE: 12/15/2018 Please refer to the psychiatric history and evaluation for further details on this admission. This examination and history is intended for medical issues which may need treatment, followup or consultation on this 23-year-old female. SOCIAL HISTORY: She is single. She lives at [facility]. She does not drink alcohol. She does not smoke cigarettes. She does not use recreational drugs. ALLERGIES: - LACTOSE PAST MEDICAL HISTORY: 1. Non-insulin dependent diabetes type 2. 2. Asthma. 3. Schizoaffective disorder. 4. Depression. 5. Anxiety. 5. Post traumatic stress disorder. PAST SURGICAL HISTORY: [place] teeth extraction. FAMILY HISTORY: Mother asthma and diabetes. Father schizophrenia. HOME MEDICATIONS: - Tylenol 500 mg by mouth every 4 hours as needed for headache - albuterol HFA 2 puffs every 4 hours as needed shortness of breath or wheeze - benztropine mesylate 1 mg by mouth twice a day - clonidine 0.1 mg by mouth daily - Clozapine 50 mg by mouth at bedtime - Benadryl 50 mg every 8 hours as needed as needed anxiety/agitation - haloperidol 10 mg by mouth three times a day - hydroxyzine 50 mg by mouth every p.m. for anxiety - lithium 450 mg by mouth twice a day - metformin 1000 mg by mouth twice a day - ranitidine 150 mg by mouth twice a day - Sertraline 100 mg by mouth daily - trazodone 50 mg by mouth at bedtime as needed insomnia - Abilify 400 mg IM every 4 weeks - fluticasone salmeterol 2 inhalations twice a day - lactate 3000 unit tab, takes 6000 units by mouth as directed - control one by mouth at bedtime - Topamax 25 mg by mouth at bedtime REVIEW OF SYSTEMS: 10 systems review was done and was unremarkable. The patient had no complaints. PHYSICAL EXAMINATION: 23-year-old cooperative female in no acute distress. Blood pressure 118/84. Pulse 92. Respirations 16. Temperature 97.6. The patient is alert and oriented times three. Pupils equal and react to light. Extraocular movements intact. Cornea and sclera clear. Conjunctiva normal. No facial asymmetry. Pharynx, tongue and gums pink and moist. Tongue is midline. Neck is supple, without lymphadenopathy. No thyromegaly. No goiter. Carotids 2+, without bruit. Chest clear to auscultation, without wheeze or retraction. Heart is regular. Abdomen benign. Bowel sounds positive. Genitourinary ()/Rectal: Not done. Extremities show equal strength, full range of motion. No cyanosis, clubbing or edema. Peripheral pulses equal and palpable bilaterally. Skin is warm and dry. Cranial nerves II-XII grossly intact. IMPRESSION AND PLAN: 1. Psychiatric. Plan per psychiatry. 2. History of non-insulin dependent diabetes type 2. Continue metformin, consistent carbohydrate diet and finger blood sugars every a.m. 3. History of asthma, stable. Continue albuterol HFA as needed. 4. No acute medical issues.
[2018-12-16 08:27] LABS: HEMOGLOBIN A1c 4.7 %
--- NOTE | 2018-12-16 09:14 | MHIPNPDOC ---
[facility] Progress Note Progress Note DATE OF SERVICE: 12/16/18 HISTORY: Patient is a 23 -year-old , female, with a history of schizoaffective d/o, borderline personality d/o, several [facility] admissions frequently for AH and SI who lives at [facility] and was brought by PD from [facility] due to pt endorsing AH that started day of admission to cut and hang herself. Pt refused to speak with me for an extended period of time and left when she felt she was done seeing me, requesting 1:1 sitter to make her feel safe so history gathered from previous hospital records. She is a poor historian as well. Pt seen in my office and states "I want to cut myself... the voices make me want to cut myself... they're coming from everywhere." when asked. Asked if she would like a prn medication to help and stated no. Pt stated the only thing that would make her feel safe is have a 1:1 sitter. She left the room promptly when she did not want to talk further. She is manipulative and attention seeking. Will restart outpatient meds and ANC calc 5452, normal. VITAL SIGNS: See below. NEW TEST RESULTS: ANC calc 5452, normal. CURRENT MEDICATIONS: See below. MENTAL STATUS EXAMINATION: MSE per 12/15/18 as pt currently sleeping General Appearance: unkempt, disheveled, appears stated age, hospital scrubs/clothing Build: overweight Demeanor: average, other (irritable, attention seeking) Eye Contact: avoidant Activity: agitated, anxious Behavior: cooperative, agitated, restless Speech: clear, normal volume, non-spontaneous Mood: depressed, anxious, angry, irritable Mood "I want to cut myself." Affect: labile, congruent, anxious Thought Process: concrete, depressed Thought Content (Delusions): other (Wants to cut self secondary AH coming from everywhere, denies HI) Thought Content (Other): preoccupied, obsessional Thought Content (Aggressive): none reported Perception (Hallucinations): auditory ("to cut myself") Perception (Other): none reported Cognition (Impairment of): attention/concentration, ability to abstract Cognition(Intelligence Est.): borderline Oriented: Awake, Alert, Oriented times three Insight: poor Judgment: Poor Psychosis: Abstract Thinking, Psychotic Perceptions DIAGNOSES: Schizoaffective disorder, bipolar type borderline personality d/o moderate intellectual disability ASSESSMENT:Pt seen with 1/1 sitter in her room due to room restriction b/c she is currently on a sitter and voicing thoughts to cut herself still per staff. She is currently alseep and left sleeping as she becomes very behaviorally reactive if woken up to talk. Continues to endorse AH telling her to cut herself per staff. Denies HI, delusions. States she safer with sitter present. MANAGEMENT PLAN: continue plan, 1:1 sitter as still wants to cut self, behavioral contract lithium 600 mg in the morning and 450 mg at night. Abilify Maintena 400 MG IM Q4WKS Clonidine 0.1 MG PO DAILY Clozapine 50 MG PO QHS Sertraline 250 MG PO DAILY, Topiramate 25 MG PO QHS haldol 10mg tid TIME SPENT: 30 minutes. Vital Signs Vital Signs Date Time Temp Pulse Resp B/P (MAP) Pulse Ox O2 Delivery O2 Flow Rate FiO2 12/16/18 06:46 97.7 67 14 102/67 (79) 12/14/18 01:54 97 12/13/18 20:53 Room Air Laboratory Data 24H Labs Laboratory Tests 2 12/16/18 06:20: Bedside Glucose (Misc Panel) 85 12/16/18 07:09: Estimated Mean Plasma Glucose 88, Hemoglobin A1c 4.7 Current Medications Current Medications Medications (Trade) Dose Ordered Sig/Beth Route PRN Reason Start Time Stop Time Status Last Admin Dose Admin Acetaminophen (Tylenol Tab) 650 mg Q6HP PRN PO HEADACHE or DISCOMFORT 12/14/18 00:00 12/15/18 21:50 Al Hydrox/Mg Hydrox/Simethicone (Mylanta) 30 ml Q4HP PRN PO HEARTBURN/INDIGESTION 12/14/18 00:00 Albuterol Sulfate (Proventil, Ventolin Hfa) 2 puff Q4HP PRN INH SHORTNESS OF BREATH 12/14/18 00:15 Benztropine Mesylate (Cogentin) 1 mg BID PO 12/13/18 21:00 12/15/18 21:48 Clonidine HCl (Catapres) 0.1 mg DAILY PO 12/14/18 09:00 12/15/18 08:59 Clozapine (Clozaril) 50 mg QHS PO 12/13/18 21:00 12/15/18 21:48 Diphenhydramine HCl (Benadryl) 50 mg Q8HP PRN PO ANXIETY/AGITATION 12/14/18 00:15 Famotidine (Pepcid) 20 mg BID PO 12/13/18 21:00 12/15/18 21:47 Haloperidol (Haldol) 10 mg TID PO 12/13/18 21:00 12/15/18 21:48 Home Med (Med Rec Complete!) ASDIRECTED XX 12/14/18 01:00 12/14/18 00:56 DC [place] Carbonate (Eskalith-Cr) 450 mg BID PO 12/13/18 21:00 12/15/18 21:48 Lorazepam (Ativan) 2 mg Q4HP PRN PO ANXIETY/AGITATION 12/14/18 10:30 12/15/18 12:30 Magnesium Hydroxide (Milk Of Magnesia) 30 ml DAILYPRN PRN PO CONSTIPATION 12/14/18 00:00 Metformin HCl (Glucophage) 1,000 mg BID@08,18 PO 12/14/18 08:00 12/15/18 18:07 Miscellaneous (Unresolved Patient Own Med Order) SEE LABEL COMMENTS DAILY XX 12/14/18 09:00 12/14/18 18:55 DC Miscellaneous (Unresolved Patient Own Med Order) SEE LABEL COMMENTS DAILY XX 12/14/18 09:00 12/14/18 18:56 DC Patient Own Medication (Patient'S Own Med) 1 PUFF BID INH 12/14/18 21:00 12/15/18 21:50 Patient Own Medication (Patient'S Own Med) 1 TAB PO AT BEDTIME QHS PO 12/14/18 21:00 12/15/18 21:48 Sertraline HCl (Zoloft) 200 mg DAILY PO 12/14/18 09:00 12/15/18 08:58 Sertraline HCl (Zoloft) 250 mg DAILY PO 12/14/18 09:00 12/14/18 01:04 DC Topiramate (TopAMAX) 25 mg QHS PO 12/13/18 21:00 12/15/18 21:48 Trazodone HCl (Desyrel) 50 mg QHSP PRN PO INSOMNIA 12/14/18 00:00 12/15/18 21:48 Allergies Coded Allergies: lactose (Verified Allergy, Unknown, 08/16/18) MORALES STANTON DO Dec 16, 2018 9:14 am
[2018-12-16] MEDS: FAMOTIDINE 20 MG TAB PO SCH ×2 (09:20→20:23)
[2018-12-16] MEDS: SERTRALINE 100 MG TAB PO SCH (09:21)
[2018-12-16] MEDS: HALOPERIDOL 10 MG TAB PO SCH ×3 (09:21→20:23)
[2018-12-16] MEDS: BENZTROPINE 1 MG TAB PO SCH ×2 (09:21→20:23)
[2018-12-16] MEDS: metFORMIN (GLUCOPHAGE) 1000 MG TABLET PO SCH ×2 (09:21→17:23)
[2018-12-16] MEDS: LITHIUM CARBONATE 450 MG **CR** TAB PO SCH ×2 (09:21→20:24)
[2018-12-16] MEDS: AIRDUO RESPICLICK INH SCH ×2 (09:21→20:24)
[2018-12-16] MEDS: cloNIDine 0.1 MG TAB PO SCH (09:27)
[2018-12-16 16:01] VITALS: BP 120/60
[2018-12-16] MEDS: LORazepam 2 MG TAB PO PRN (16:28)
[2018-12-16] MEDS: cloZAPine 25 MG TAB (S0136) PO SCH (20:23)
[2018-12-16] MEDS: TOPIRAMATE (TopAMAX) 25 MG TAB PO SCH (20:23)
[2018-12-16] MEDS: NORETHINDRONE E ESTRADIOL IRON PO SCH (20:24)
[2018-12-16] MEDS: traZODone 50 MG TAB PO PRN (21:48)
[2018-12-17 06:32] VITALS: BP 108/62
[2018-12-17] MEDS: LITHIUM CARBONATE 450 MG **CR** TAB PO SCH ×2 (08:28→20:22)
[2018-12-17] MEDS: BENZTROPINE 1 MG TAB PO SCH ×2 (08:28→21:19)
[2018-12-17] MEDS: HALOPERIDOL 10 MG TAB PO SCH ×3 (08:28→21:19)
[2018-12-17] MEDS: metFORMIN (GLUCOPHAGE) 1000 MG TABLET PO SCH ×2 (08:28→17:27)
[2018-12-17] MEDS: FAMOTIDINE 20 MG TAB PO SCH ×2 (08:28→21:19)
[2018-12-17] MEDS: SERTRALINE 100 MG TAB PO SCH (08:29)
[2018-12-17] MEDS: AIRDUO RESPICLICK INH SCH ×2 (08:30→21:21)
[2018-12-17] MEDS: cloNIDine 0.1 MG TAB PO SCH (08:35)
--- NOTE | 2018-12-17 08:56 | MHIPNPDOC ---
[facility] Progress Note Progress Note DATE OF SERVICE: 12/17/18 HISTORY: Patient is a 23 -year-old , female, with a history of schizoaffective d/o, borderline personality d/o, several [facility] admissions frequently for AH and SI who lives at [facility] and was brought by PD from [facility] due to pt endorsing AH that started day of admission to cut and hang herself. Pt refused to speak with me for an extended period of time and left when she felt she was done seeing me, requesting 1:1 sitter to make her feel safe so history gathered from previous hospital records. She is a poor historian as well. Pt seen in my office and states "I want to cut myself... the voices make me want to cut myself... they're coming from everywhere." when asked. Asked if she would like a prn medication to help and stated no. Pt stated the only thing that would make her feel safe is have a 1:1 sitter. She left the room promptly when she did not want to talk further. She is manipulative and attention seeking. Will restart outpatient meds and ANC calc 5452, normal. VITAL SIGNS: See below. NEW TEST RESULTS: ANC calc 5452, normal. CURRENT MEDICATIONS: See below. MENTAL STATUS EXAMINATION: General Appearance: unkempt, disheveled, appears stated age, hospital scrubs/clothing Build: overweight Demeanor: average, other (less irritable, attention seeking) Eye Contact: fair Activity: cooperative Behavior: cooperative Speech: clear, normal volume, non-spontaneous Mood: depressed, reactive Mood "ok" Affect: depressed, flat, reactive Thought Process: concrete, depressed Thought Content (Delusions): other (Wants to cut self secondary AH coming from everywhere that are improving, denies HI) Thought Content (Other): preoccupied, obsessional Thought Content (Aggressive): none reported Perception (Hallucinations): auditory ("to cut myself") Perception (Other): none reported Cognition (Impairment of): attention/concentration, ability to abstract Cognition(Intelligence Est.): borderline Oriented: Awake, Alert, Oriented times three Insight: poor Judgment: Poor Psychosis: Abstract Thinking, Psychotic Perceptions DIAGNOSES: Schizoaffective disorder, bipolar type borderline personality d/o moderate intellectual disability ASSESSMENT:Pt seen with 1/1 sitter in restraint room which is her new room per nursing due to difficulties with her neighbor across the [place] in her last room. States she's "OK." Pt had been taking off 1:1 sitter during the night when asleep but was put back on when she had problems with peer pt across the [place]. Pt did not need to be coded though last night. Continues to voice thoughts to cut herself but occurring less often. Continues to endorse AH telling her to cut herself although they are less. Denies HI, delusions. States she safer with sitter present. MANAGEMENT PLAN: continue plan, 1:1 sitter as still wants to cut self, behavioral contract lithium 600 mg in the morning and 450 mg at night. Abilify Maintena 400 MG IM Q4WKS Clonidine 0.1 MG PO DAILY Clozapine 50 MG PO QHS Sertraline 250 MG PO DAILY, Topiramate 25 MG PO QHS haldol 10mg tid TIME SPENT: 30 minutes. Vital Signs Vital Signs Date Time Temp Pulse Resp B/P (MAP) Pulse Ox O2 Delivery O2 Flow Rate FiO2 12/17/18 08:35 134/62 12/17/18 06:32 96.6 63 14 12/14/18 01:54 97 12/13/18 20:53 Room Air Laboratory Data 24H Labs Laboratory Tests 2 12/17/18 06:07: Bedside Glucose (Misc Panel) 78 Current Medications Current Medications Medications (Trade) Dose Ordered Sig/Beth Route PRN Reason Start Time Stop Time Status Last Admin Dose Admin Acetaminophen (Tylenol Tab) 650 mg Q6HP PRN PO HEADACHE or DISCOMFORT 12/14/18 00:00 12/15/18 21:50 Al Hydrox/Mg Hydrox/Simethicone (Mylanta) 30 ml Q4HP PRN PO HEARTBURN/INDIGESTION 12/14/18 00:00 Albuterol Sulfate (Proventil, Ventolin Hfa) 2 puff Q4HP PRN INH SHORTNESS OF BREATH 12/14/18 00:15 Benztropine Mesylate (Cogentin) 1 mg BID PO 12/13/18 21:00 12/17/18 08:28 Clonidine HCl (Catapres) 0.1 mg DAILY PO 12/14/18 09:00 12/17/18 08:35 Clozapine (Clozaril) 50 mg QHS PO 12/13/18 21:00 12/16/18 20:23 Diphenhydramine HCl (Benadryl) 50 mg Q8HP PRN PO ANXIETY/AGITATION 12/14/18 00:15 Famotidine (Pepcid) 20 mg BID PO 12/13/18 21:00 12/17/18 08:28 Haloperidol (Haldol) 10 mg TID PO 12/13/18 21:00 12/17/18 08:28 Home Med (Med Rec Complete!) ASDIRECTED XX 12/14/18 01:00 12/14/18 00:56 DC [place] Carbonate (Eskalith-Cr) 450 mg BID PO 12/13/18 21:00 12/17/18 08:28 Lorazepam (Ativan) 2 mg Q4HP PRN PO ANXIETY/AGITATION 12/14/18 10:30 12/16/18 16:28 Magnesium Hydroxide (Milk Of Magnesia) 30 ml DAILYPRN PRN PO CONSTIPATION 12/14/18 00:00 Metformin HCl (Glucophage) 1,000 mg BID@,18 PO 12/14/18 08:00 12/17/18 08:28 Miscellaneous (Unresolved Patient Own Med Order) SEE LABEL COMMENTS DAILY XX 12/14/18 09:00 12/14/18 18:55 DC Miscellaneous (Unresolved Patient Own Med Order) SEE LABEL COMMENTS DAILY XX 12/14/18 09:00 12/14/18 18:56 DC Patient Own Medication (Patient'S Own Med) 1 PUFF BID INH 12/14/18 21:00 12/17/18 08:30 Patient Own Medication (Patient'S Own Med) 1 TAB PO AT BEDTIME QHS PO 12/14/18 21:00 12/16/18 20:24 Sertraline HCl (Zoloft) 200 mg DAILY PO 12/14/18 09:00 12/17/18 08:29 Sertraline HCl (Zoloft) 250 mg DAILY PO 12/14/18 09:00 12/14/18 01:04 DC Topiramate (TopAMAX) 25 mg QHS PO 12/13/18 21:00 12/16/18 20:23 Trazodone HCl (Desyrel) 50 mg QHSP PRN PO INSOMNIA 12/14/18 00:00 12/16/18 21:48 Allergies Coded Allergies: lactose (Verified Allergy, Unknown, 08/16/18) MORALES STANTON DO Dec 17, 2018 8:56 am
[2018-12-17] MEDS: LORazepam 2 MG TAB PO PRN ×2 (11:41→21:19)
[2018-12-17 15:49] VITALS: BP 129/61
[2018-12-17] MEDS: cloZAPine 25 MG TAB (S0136) PO SCH (20:22)
[2018-12-17] MEDS: NORETHINDRONE E ESTRADIOL IRON PO SCH (21:19)
[2018-12-17] MEDS: TOPIRAMATE (TopAMAX) 25 MG TAB PO SCH (21:19)
[2018-12-18 06:20] VITALS: BP 127/79
[2018-12-18] MEDS: BENZTROPINE 1 MG TAB PO SCH (08:19)
[2018-12-18] MEDS: LITHIUM CARBONATE 450 MG **CR** TAB PO SCH (08:19)
[2018-12-18] MEDS: SERTRALINE 100 MG TAB PO SCH (08:19)
[2018-12-18] MEDS: FAMOTIDINE 20 MG TAB PO SCH (08:19)
[2018-12-18] MEDS: metFORMIN (GLUCOPHAGE) 1000 MG TABLET PO SCH (08:19)
[2018-12-18] MEDS: HALOPERIDOL 10 MG TAB PO SCH (08:19)
[2018-12-18] MEDS: AIRDUO RESPICLICK INH SCH (08:20)
[2018-12-18 08:28] VITALS: BP 123/83
[2018-12-18] MEDS: cloNIDine 0.1 MG TAB PO SCH (08:28)
--- NOTE | 2018-12-18 09:29 | MHIPNPDOC ---
[facility] Progress Note Progress Note DATE OF SERVICE: 12/18/18 HISTORY: Patient is a 23 -year-old , female, with a history of schizoaffective d/o, borderline personality d/o, several [facility] admissions frequently for AH and SI who lives at [facility] and was brought by PD from [facility] due to pt endorsing AH that started day of admission to cut and hang herself. Pt refused to speak with me for an extended period of time and left when she felt she was done seeing me, requesting 1:1 sitter to make her feel safe so history gathered from previous hospital records. She is a poor historian as well. Pt seen in my office and states "I want to cut myself... the voices make me want to cut myself... they're coming from everywhere." when asked. Asked if she would like a prn medication to help and stated no. Pt stated the only thing that would make her feel safe is have a 1:1 sitter. She left the room promptly when she did not want to talk further. She is manipulative and attention seeking. Will restart outpatient meds and ANC calc 5452, normal. VITAL SIGNS: See below. NEW TEST RESULTS: ANC calc 5452, normal. CURRENT MEDICATIONS: See below. MENTAL STATUS EXAMINATION: General Appearance: unkempt, disheveled, appears stated age, hospital scrubs/clothing Build: overweight Demeanor: average, other (less irritable, attention seeking) Eye Contact: fair Activity: cooperative Behavior: cooperative Speech: clear, normal volume, non-spontaneous Mood: depressed, reactive Mood "not good" Affect: depressed, flat, reactive Thought Process: concrete, depressed Thought Content (Delusions): other (Wants to cut self secondary AH coming from everywhere that are improving, denies HI) Thought Content (Other): preoccupied, obsessional Thought Content (Aggressive): none reported Perception (Hallucinations): auditory ("to cut myself") Perception (Other): none reported Cognition (Impairment of): attention/concentration, ability to abstract Cognition(Intelligence Est.): borderline Oriented: Awake, Alert, Oriented times three Insight: poor Judgment: Poor Psychosis: Abstract Thinking, Psychotic Perceptions DIAGNOSES: Schizoaffective disorder, bipolar type borderline personality d/o moderate intellectual disability ASSESSMENT:Pt seen with 1/1 sitter in restraint room which is her new room per nursing due to difficulties with her neighbor across the [place] in her last room. States she's "not good." Pt had been taking off 1:1 sitter yesterday at her request and did well attending groups but then stated in the evening that she was going to hurt herself to be put back on a 1:1 sitter. Pt appears to be making statements on SI most to get what she wants which is a 1:1 sitter as she likes having one. Pt did not need to be coded though last night. Continues to voice thoughts to cut herself now appearing to be manipulative maneuver for sitter placement. Will d/c pt back to [facility] immediately the next time she feels safe to come off sitter to end manipulative behavior here. Continues to endorse AH telling her to cut herself. Denies HI, delusions. States she safer with sitter present. MANAGEMENT PLAN: continue plan, 1:1 sitter as still wants to cut self, behavioral contract lithium 600 mg in the morning and 450 mg at night. Abilify Maintena 400 MG IM Q4WKS Clonidine 0.1 MG PO DAILY Clozapine 50 MG PO QHS Sertraline 250 MG PO DAILY, Topiramate 25 MG PO QHS haldol 10mg tid TIME SPENT: 30 minutes. Vital Signs Vital Signs Date Time Temp Pulse Resp B/P (MAP) Pulse Ox O2 Delivery O2 Flow Rate FiO2 12/18/18 08:28 123/83 12/18/18 06:20 98.0 61 16 12/14/18 01:54 97 12/13/18 20:53 Room Air Laboratory Data 24H Labs Laboratory Tests 2 12/18/18 06:22: Bedside Glucose (Misc Panel) 78 Current Medications Current Medications Medications (Trade) Dose Ordered Sig/Beth Route PRN Reason Start Time Stop Time Status Last Admin Dose Admin Acetaminophen (Tylenol Tab) 650 mg Q6HP PRN PO HEADACHE or DISCOMFORT 12/14/18 00:00 12/15/18 21:50 Al Hydrox/Mg Hydrox/Simethicone (Mylanta) 30 ml Q4HP PRN PO HEARTBURN/INDIGESTION 12/14/18 00:00 Albuterol Sulfate (Proventil, Ventolin Hfa) 2 puff Q4HP PRN INH SHORTNESS OF BREATH 12/14/18 00:15 Benztropine Mesylate (Cogentin) 1 mg BID PO 12/13/18 21:00 12/18/18 08:19 Clonidine HCl (Catapres) 0.1 mg DAILY PO 12/14/18 09:00 12/18/18 08:28 Clozapine (Clozaril) 50 mg QHS PO 12/13/18 21:00 12/17/18 20:22 Diphenhydramine HCl (Benadryl) 50 mg Q8HP PRN PO ANXIETY/AGITATION 12/14/18 00:15 Famotidine (Pepcid) 20 mg BID PO 12/13/18 21:00 12/18/18 08:19 Haloperidol (Haldol) 10 mg TID PO 12/13/18 21:00 12/18/18 08:19 Home Med (Med Rec Complete!) ASDIRECTED XX 12/14/18 01:00 12/14/18 00:56 DC [place] Carbonate (Eskalith-Cr) 450 mg BID PO 12/13/18 21:00 12/18/18 08:19 Lorazepam (Ativan) 2 mg Q4HP PRN PO ANXIETY/AGITATION 12/14/18 10:30 12/17/18 21:19 Magnesium Hydroxide (Milk Of Magnesia) 30 ml DAILYPRN PRN PO CONSTIPATION 12/14/18 00:00 Metformin HCl (Glucophage) 1,000 mg BID@08,18 PO 12/14/18 08:00 12/18/18 08:19 Miscellaneous (Unresolved Patient Own Med Order) SEE LABEL COMMENTS DAILY XX 12/14/18 09:00 12/14/18 18:55 DC Miscellaneous (Unresolved Patient Own Med Order) SEE LABEL COMMENTS DAILY XX 12/14/18 09:00 12/14/18 18:56 DC Patient Own Medication (Patient'S Own Med) 1 PUFF BID INH 12/14/18 21:00 12/18/18 08:20 Patient Own Medication (Patient'S Own Med) 1 TAB PO AT BEDTIME QHS PO 12/14/18 21:00 12/17/18 21:19 Sertraline HCl (Zoloft) 200 mg DAILY PO 12/14/18 09:00 12/18/18 08:19 Sertraline HCl (Zoloft) 250 mg DAILY PO 12/14/18 09:00 12/14/18 01:04 DC Topiramate (TopAMAX) 25 mg QHS PO 12/13/18 21:00 12/17/18 21:19 Trazodone HCl (Desyrel) 50 mg QHSP PRN PO INSOMNIA 12/14/18 00:00 12/16/18 21:48 Allergies Coded Allergies: lactose (Verified Allergy, Unknown, 08/16/18) MORALES STANTON DO Dec 18, 2018 9:29 am
--- NOTE | 2018-12-19 08:45 | MHDSPDOC ---
[facility] Discharge Summary Discharge Summary DATE OF ADMISSION: Dec 13, 2018 at 23:56 DATE OF DISCHARGE: Dec 18, 2018 at 13:05 DISCHARGE DIAGNOSES: Schizoaffective disorder, bipolar type borderline personality d/o moderate intellectual disability REASON FOR ADMISSION: Patient is a 23 -year-old , female, with a history of schizoaffective d/o, borderline personality d/o, several [facility] admissions frequently for AH and SI who lives at [facility] and was brought by PD from [facility] due to pt endorsing AH that started day of admission to cut and hang herself. Pt refused to speak with me for an extended period of time and left when she felt she was done seeing me, requesting 1:1 sitter to make her feel safe so history gathered from previous hospital records. She is a poor historian as well. Pt seen in my office and states "I want to cut myself... the voices make me want to cut myself... they're coming from everywhere." when asked. Asked if she would like a prn medication to help and stated no. Pt stated the only thing that would make her feel safe is have a 1:1 sitter. She left the room promptly when she did not want to talk further. She is manipulative and attention s eeking. Will restart outpatient meds and ANC calc 5452, normal. CONSULTANTS INVOLVED: ANC calc 5452, normal. TREATMENT AND PROGRESS ON THE UNIT : Pt was admitted to [facility], seen for psychiatric assessment and restarted on her outpatient psychiatric medications clozaril, haldol, trazodone, zoloft, lithium, topomax, and clonidine that she tolerated well. Pt did not require any chemical and physical restraints during her stay but was cooperative on the unit and with good behavior and followed staff support and redirection. Pt was placed on a 1:1 sitter during her stay for SI with d/c of 1:1 sitter on the day of d/c when pt able to say she was no longer having SI and felt safe to be without a sitter. Pt found her medications beneficial and tolerated them well. She attended groups daily and during her stay. Her symptoms improved with treatment. On day of discharge she denied depression, anxiety, insomnia, SI/HI, hallucinations, delusions. She was d ischarged back to [facility] after [facility] meeting with follow-up at [facility]. She felt safe for discharge. DISCHARGE ASSESSMENT: Patient seen states her mood is good and she's looking forward to returning to [facility] today. She denies SI/HI, AH and her behavioral symptoms are improved. She is less attention seeking. She is tolerating her medications well and feels they're beneficial. She denies depression, anxiety, insomnia, SI/HI, hallucinations, delusions. She feels safe to be discharged back to [facility] today. MENTAL STATUS EXAMINATION ON DISCHARGE: Hospital scrubs, cooperative. Made good eye contact. Psychomotor activity is normal. Speech rate, rhythm, and volume are good. States her mood is good and affect is euthymic. She is cooperative and bright. Her insight and judgment are limited. Denied auditory or visual hallucinations. Denies suicidal or homicidal thoughts. Memory for immediate, remote and recent are good. MEDICATIONS ON DISCHARGE: lithium 600 mg in the morning and 450 mg at night. Abilify Maintena 400 MG IM Q4WKS Clonidine 0.1 MG PO DAILY Clozapine 50 MG PO QHS Sertraline 250 MG PO DAILY, Topiramate 25 MG PO QHS haldol 10mg tid PLAN/FOLLOWUP ARRANGEMENTS: D/c back to [facility] with follow-up at [facility]. The amount of time spent in the coordination of care for this patient was approximately 30 minutes. Vital Signs/I&Os Vital Signs Date Time Temp Pulse Resp B/P (MAP) Pulse Ox O2 Delivery O2 Flow Rate FiO2 12/18/18 08:28 123/83 12/18/18 06:20 98.0 61 16 12/14/18 01:54 97 12/13/18 20:53 Room Air Medications Scheduled Aripiprazole (Abilify Maintena) 400 Mg Suser.syr, 400 MG IM Q4WKS, (Reported) Benztropine Mesylate (Benztropine Mesylate) 1 Mg Tablet, 1 MG PO BID, (Reported) Clonidine HCl (Catapres) 0.1 Mg Tablet, 0.1 MG PO DAILY, (Reported) Clozapine (Clozapine) 50 Mg Tablet, 50 MG PO QHS, (Reported) Fluticasone Propion/Salmeterol (Airduo Respiclick 232-14 Mcg) 1 Each Aer.pow.ba, 2 PUFF INH BID, (Reported) Haloperidol (Haloperidol) 10 Mg Tablet, 10 MG PO TID, (Reported) Hydroxyzine HCl (Hydroxyzine HCl) 50 Mg Tablet, 50 MG PO QPM for anxiety, (Reported) USES PRN Lactase (Lactaid) 3,000 Unit Tab, 6,000 UNIT PO ASDIRECTED, (Reported) TAKES 2 TABS WHEN SHE HAS DAIRY [place] Carbonate ([place] Carbonate ER) 450 Mg Tablet.er, 450 MG PO BID, (Reported) Metformin HCl (Metformin HCl) 500 Mg Tablet, 1,000 MG PO BID, (Reported) Norethindrone-E.estradiol-Iron (Junel Fe 1.5 mg-30 Mcg Tablet) 1 Tab Tab, 1 TAB PO QHS, (Reported) Ranitidine HCl (Ranitidine HCl) 150 Mg Tablet, 1 TAB PO BID, (Reported) Sertraline HCl (Sertraline HCl) 100 Mg Tablet, 200 MG PO DAILY, (Reported) Topiramate (Topiramate) 25 Mg Cap.sprink, 25 MG PO QHS, (Reported) Scheduled PRN Acetaminophen (Tylenol Extra Strength) 500 Mg Tablet, 500 MG PO Q4H PRN for HEADACHE, (Reported) Albuterol Sulfate (Ventolin Hfa) 18 Gm Hfa.aer.ad, 2 PUFF INH Q4H PRN for SHORTNESS OF BREATH, (Reported) Diphenhydramine HCl (Banophen) 50 Mg Capsule, 50 MG PO Q8H PRN for ANXIETY/AGITATION, (Reported) Trazodone HCl (Trazodone HCl) 50 Mg Tablet, 50 MG PO QHS PRN for INSOMNIA, (Reported) Allergies Coded Allergies: lactose (Verified Allergy, Unknown, 08/16/18) MORALES STANTON DO Dec 19, 2018 08:45
== END 2018-12-18 13:05 | disposition home or self-care (01) | DRG 750 ==
LOC: M ED 20:34 → M ED INP 23:56 → M PSY 12-14 01:04
PROVIDERS: ADMIT Psychiatry & Neurology Psychiatry; ATTEND Psychiatry & Neurology Psychiatry
DX: F25.0 Schizoaffective disorder, bipolar type (principal); Z68.42 Body mass index [BMI] 45.0-49.9, adult; E11.9 Type 2 diabetes mellitus without complications; F71 Moderate intellectual disabilities; F60.3 Borderline personality disorder; E66.9 Obesity, unspecified; E73.9 Lactose intolerance, unspecified; Z79.84 Long term (current) use of oral hypoglycemic drugs; Z79.899 Other long term (current) drug therapy; J45.909 Unspecified asthma, uncomplicated; Z81.8 Family history of other mental and behavioral disorders